=== PATIENT | female | born 1955 | race African-American/Black ===

== ENCOUNTER 2022-01-22 06:59 | Day surgery (SDC) | payer OTHER ==
[2022-01-20 16:22] LABS: Absolute Lymphocytes (CBC) 2.1 K/uL (0.7-4.9); Hematocrit 33.9 % (36.0-45.0); Lymphocytes % 31.8 % (15.3-44.8); MPV 6.8 fL (7.6-11.3); RBC Red Blood Cell Count 4.11 M/uL (3.86-4.86)
[2022-01-20 16:39] LABS: Potassium 3.3 mmol/L (3.5-5.1)
--- NOTE | 2022-01-20 16:52 | RAD REPORT ---
EXAM DESCRIPTION: RAD - Chest Pa And Lat (2 Views) - 01/20/2022 4:32 pm CLINICAL HISTORY: Pre op pending mass removalfrom the back COMPARISON: None available TECHNIQUE: Frontal and lateral views of the chest were obtained. FINDINGS: The lungs are clear. Heart size is normal and central vasculature is within normal limit s. No pleural effusion or pneumothorax seen. No acute bony finding noted. Thoracic endplate degener ative spurring changes are present. No aortic abnormality. IMPRESSION: No acute cardiopulmonary process.
--- NOTE | 2022-01-21 10:52 | EKG ---
Test Date: 2022-01-20 Test Time: 15:02:18 Salesforce Administrator: ELIU MEASUREMENT RESULTS: Intervals: Rate: 60 [place]: 166 QRSD: 86 QT: 404 QTc: 404 [place]: P: 44 [place]: 166 QRS: -4 T: 13 INTERPRETIVE STATEMENTS: Normal sinus rhythm Minimal voltage criteria for LVH, may be normal variant Possible Anterior infarct, age undetermined Abnormal ECG No previous ECG available for comparison Electronically Signed On 01-21-22 10:50:16 CDT by Candelario Dey
[2022-01-22] MEDS ORDERED: BUPIVACAINE 0.5% PF 10 ML VIAL ONE (07:18)
[2022-01-22] MEDS ORDERED: NA CHLORIDE 0.9% 1,000 ML ONE (07:24)
[2022-01-22] MEDS ORDERED: NA CHLORIDE 0.9% 50 ML ONE (07:41)
[2022-01-22] MEDS ORDERED: CEFAZOLIN SODIUM 1 GM/VIAL ONE (07:41)
[2022-01-22] MEDS ORDERED: propofoL 200 MG/20 ML VIAL IV ONE (07:42)
[2022-01-22] MEDS ORDERED: MIDAZOLAM HCL 2 MG/2 ML INJ ONE (07:42)
[2022-01-22] MEDS ORDERED: FENTANYL CITR 100 MCG/2 ML ONE (07:42)
[2022-01-22] MEDS ORDERED: ONDANSETRON 4 MG/2 ML VIAL ONE (07:43)
[2022-01-22] MEDS ORDERED: LIDOCAINE 2% MPF 5 ML VIAL ONE (07:43)
[2022-01-22] MEDS ORDERED: GLYCOPYRROLATE 0.2 MG/ML SYR ONE ×2 (08:26→08:29)
--- NOTE | 2022-01-22 08:27 | P.BOP ---
Preoperative diagnosis: quarter backer subQ mass 3.5 x 3 x 2 cm Postoperative diagnosis: same Primary procedure: Excisional biopsy quarter backer subQ mass 3.5 x 3 x 2 cm Vinyl Welder And Fabricator: MAHAMED QUINONES (VICE PRESIDENT OF ADVERTISING) Estimated blood loss: <10cc Specimen: back subQ mass 3.5 Findings: back subQ mass 3.5 Anesthesia: General Complications: None Fluids & blood products: no blood Transferred to: Recovery Room Condition: Good
[2022-01-22 09:12] VITALS: O2SAT 100
--- NOTE | 2022-01-22 09:31 | OP ---
Date of Procedure: 01/22/2022 Surgeon: Solomon Guillory MD Trim Installer: Sara Mchugh. Preoperative Diagnosis: Back, tender subcutaneous mass 3.5 x 3 x 2. Postoperative Diagnosis: Back, tender subcutaneous mass 3.5 x 3 x 2. Procedure: Excisional biopsy of tender back subcutaneous mass. Estimated Blood Loss: Less than 10 cc. Specimen: Subcutaneous back mass. Findings: Subcutaneous mass. Anesthesia: General plus local. Complications: None. Indication: This is the case of a 67-year-old patient, comes to us with a large tender mass in the b ack. Given pain and discomfort, she wants that excised. Benefits, alternatives, and risks of excisi on fully explained, which include, but not limited to infection, bleeding, damage to adjacent structu res, anesthesia complication, abscess, [place] and even . She also understands this may not relieve any symptoms. She might need more than one surgical intervention. She understood, signed a consent. The area of concern was marked by me and the patient in the holding room. Procedure In Detail: The patient was brought to the operating room, placed in supine position. Anes thesia was done without complication. The patient was placed in lateral decubitus position with prop er protection. The area was prepped and draped in the usual sterile fashion. Local anesthesia was a pplied followed by a wedge incision on the skin, gross negative margins and then we went about 2 cm t o be able to remove this mass. The area was irrigated. The mass was excised. Hemostasis was obtain ed. Then, we proceeded to close this in layers; deep layers 0 chromic, mid layers 0 chromic and 3-0 chromic, more superficial layers with 3-0 chromic and the skin with 3-0 nylon. The patient tolerated the procedure well. Sponge count and instrument counts correct. The patient was sent to recovery i n stable condition. HM/MODL Voice ID: [id number] Report ID: [id number]
--- NOTE | 2022-01-22 09:37 | DS ---
Diagnosis: stretch box tender subcutaneous mass. Procedure: Excisional biopsy of barback subcutaneous mass. Disposition: Home. Condition: Stable. Activity: As tolerated. No heavy lifting. Followup: Follow up in my office in 1 week. Call for appointment at [phone]. Keep area dry for 48 hours, then may shower. BRAULIO/JEREMIE Voice ID: [id number] Report ID: [id number]
[2022-01-22 09:39] VITALS: BP 159/97; TEMP 96.9
== END 2022-01-22 10:05 | disposition home or self-care (01) ==
LOC: OR 06:59
PROVIDERS: ATTEND Surgery
PROC: 0JB70ZZ Excision of Back Subcutaneous Tissue and Fascia, Open Approach (ICD-10-PCS; principal; 2022-01-22 08:00)
DX: L72.11 Pilar cyst (principal); Z20.822 Contact with and (suspected) exposure to COVID-19; E78.00 Pure hypercholesterolemia, unspecified; I10 Essential (primary) hypertension; E11.9 Type 2 diabetes mellitus without complications
CPT/HCPCS: 11404; 93005; 85025; 80048; 36415; 82947 ×2; 88304; 71046; U0003; J2704; J2250; J3010; J7030; J2405; J0690

== ENCOUNTER 2022-09-13 19:07 | Emergency (ER) | payer OTHER ==
--- OUTSIDE RECORDS SUMMARY | 2022-09-13 19:21 | XMS REPORT | Continuity of Care Document ---
:1955 Author Organization [facility] t Address [address] [place] [address] Care Team Providers Name Role Phone ELO WILEY Primary Care Physician Unavailable MONALISA BOUDREAUX Attending Clinician Unavailable Monalisa Boudreaux MD Attending Clinician Doctor Unassigned, [place] Attending Clinician Unavailable Radiology Attending Clinician Unavailable RADIOLOGY Attending Clinician Unavailable ILIANA CHAVEZ Attending Clinician Unavailable Iliana Chavez DO Attending Clinician UNKNOWN, ATTENDING Attending Clinician Unavailable Unknown, Attending Attending Clinician Unavailable Provider, [facility] Attending Clinician Unavailable Nj Phillips MD Attending Clinician [place] PHILLIPS Attending Clinician Unavailable MONALISA BOUDREAUX Admitting Clinician Unavailable Monalisa Boudreaux MD Admitting Clinician ELO WILEY Admitting Clinician Unavailable Payers Payer Name Policy Type Policy Number Effective Date Expiration Date Rafal ORELLANA/JOSE [id number] 2021 MEDICARE ADVANTAGE 00:00:00 Problems Condition Condition Condition Status Onset Resolution Last Treating Co mments Source Name Details Category Date Date Treatment Clinician Date Chest pain Chest pain Disease Active U nivers 5-05 ity of 00:00: [place] 00 [facility] Obesity Obesity Disease Active Univers (BMI (BMI 5-05 ity of 30-39.9) 30-39.9) 00:00: [place] [facility] Hypertensi Hypertensi Disease Active U nivers ve urgency ve urgency 5-05 it y of 00:00: [place] [facility] Morbidly Morbidly Disease Active Unive rs obese obese 6-17 ity of 00:00: [place] [facility] Essential Essential Disease Active Uni vers hypertensi hypertensi 6-17 it y of on, benign [place], benign [place] [facility] Type 2 Type 2 Disease Active Univers diabetes diabetes 6-17 ity of mellitus mellitus 00:00: [place] without without 00 Medical complicati complicati Br anch on on Hyperchole Hyperchole Disease Active U nivers steremia steremia 6-17 ity of 00:00: [place] 00 [facility] Allergies, Adverse Reactions, Alerts Allergy Allergy Status Severity Reaction(s) Onset Inactive Treating Comm ents Source Name Type Date Date Clinician POISON DRUG Active Hives Univers SADE INGREDI 8-15 ity of EXTRACT 00:00: [place] 00 [facility] Poison Propensi Active Hives Univers Sade ty to 8-15 ity of Extract adverse 00:00: [place] reaction 00 [facility] s Branch LACTOSE DRUG Active Diarrhea Univers INGREDI 5-05 ity of 00:00: [place] [facility] Lactose Propensi Active Diarrhea Lactose Univ ers ty to 5-05 intoleran ity of adverse 00:00: t [place] reaction Medical s [place] Social History Social Habit Start Date Stop Date Quantity Comments Source Alcohol intake 2022-05-14 2022-05-14 0 /d University of 00:00:00 00:00:00 [facility] Exposure to 2022-04-28 2022-05-08 Not sure [facility] SARS-CoV-2 00:00:00 13:10:00 [place] [facility] (event) Branch Tobacco use and 2016-03-07 2016-03-07 Smokeless tobacco Un iversity of exposure 00:00:00 00:00:00 non-user [facility] Sex Assigned At [address] [facility] y of 00:00:00 00:00:00 [facility] Smoking Status Start Date Stop Date Source Never smoked tobacco [facility] Medications Ordered Filled Start Stop Current Ordering Indication Dosage Frequency Signature Comments Components Source Medication Medication Date Date Medication? Clinician (SIG) Name Name TAKE 1 No TABLET BY 9-24 MOUTH ONCE 00:00: DAILY 00 TAKE 1 No TABLET BY 9-24 MOUTH ONCE 00:00: DAILY 00 water for 2021- No PRN, Univers irrigation 05-14 Starting ity of irrigation 15:33: 16:16 on Thu [place] solution 00 :28 05/14/22 at Medic al 1033, Branch Until Thu05/14/22 at 1116, Routine, Intra-op simethicone 2021- No PRN, Unive rs (GAS RELIEF 05-14 Starting ity of (SIMETHICON 15:33: 16:16 on Thu Jf as E)) 40 00 :28 05/14/22 at Medical mg/0.6 mL 1033, Branch drops Until Thu05/14/22 at 1116, Routine, Intra-op carvedilol Yes 25mg Take 25 mg U nivers (COREG) 25 8-24 by mouth 2 ity of mg tablet 14:23: (two) [place] 14 [place] [facility] daily with Branch meals. lovastatin Yes 20mg Take 20 mg U nivers (MEVACOR) 8-24 by mouth ity of 20 mg 14:23: at [place] tablet 14 bedtime. Medical Branch DINA Yes 81mg Take 81 mg Univer s ASPIRIN 8-24 by mouth ity of ORAL 14:23: daily. [place] 14 [facility] Branch cloniDINE Yes .2mg Take 0.2 Univ ers (CATAPRES) 8-24 mg by ity of 0.2 mg 14:23: mouth 3 [place] tablet 14 (three) Medical times [place] daily. diphenhydrA Yes 25mg Take 25 mg Univers MINE 8-24 by mouth ity of (BENADRYL) 14:23: as needed [place] 25 mg 14 for Medical capsule Allergies. Branch losartan-hy Yes 1{tbl} Take 1 Un óscar drochloroth 8-24 tablet by ity of iazide 14:23: mouth [place] 100-25 mg 14 daily. Medical per tablet Branch doxycycline Yes 100mg Take 100 U nivers 100 mg EC 8-24 mg by ity of tablet 14:23: mouth 2 [place] 14 (two) Medical times Branch daily. vitamin Yes 500ug Take 500 Unive rs B-12 500 8-24 mcg by ity of mcg tablet 14:23: mouth [place] 14 daily. Medical Branch glipiZIDE 5 Yes 5mg Take 5 mg U nivers mg tablet 8-24 by mouth ity of 14:23: daily. [place] [address] Medical Branch DULoxetine Yes 30mg Take 30 mg U nivers 30 mg 8-24 by mouth ity of capsule 14:23: daily. [place] [address] Medical Branch insulin Yes 50U inject 50 Unive rs glargine,hu 8-24 Units ity of m.rec.anlog 14:23: [place] 14 skin at Medic al bedtime. Branch semaglutide Yes inject Univ ers (OZEMPIC 8-24 under the ity of [place]) 14:23: skin [place] 14 weekly. Medical Branch carvedilol Yes 25mg Take 25 mg U nivers (COREG) 25 8-24 by mouth 2 ity of mg tablet 14:23: (two) [place] 14 times [facility] daily with Branch meals. lovastatin Yes 20mg Take 20 mg U nivers (MEVACOR) 8-24 by mouth ity of 20 mg 14:23: at [place] tablet 14 bedtime. Medical Branch DINA Yes 81mg Take 81 mg Univer s ASPIRIN 8-24 by mouth ity of ORAL 14:23: daily. [place] [address] Medical Branch cloniDINE Yes .2mg Take 0.2 Univ ers (CATAPRES) 8-24 mg by ity of 0.2 mg 14:23: mouth 3 [place] tablet 14 (three) Medical times Branch daily. diphenhydrA Yes 25mg Take 25 mg Univers MINE 8-24 by mouth ity of (BENADRYL) 14:23: as needed [place] 25 mg 14 for Medical capsule Allergies. Branch losartan-hy Yes 1{tbl} Take 1 Un óscar drochloroth 8-24 tablet by ity of iazide 14:23: mouth [place] 100-25 mg 14 daily. Medical per tablet Branch doxycycline Yes 100mg Take 100 U nivers 100 mg EC 8-24 mg by ity of tablet 14:23: mouth 2 [place] 14 (two) Medical times Branch daily. vitamin Yes 500ug Take 500 Unive rs B-12 500 8-24 mcg by ity of mcg tablet 14:23: mouth [place] 14 daily. Medical Branch glipiZIDE 5 Yes 5mg Take 5 mg U nivers mg tablet 8-24 by mouth ity of 14:23: daily. [place] [address] Medical Branch DULoxetine Yes 30mg Take 30 mg U nivers 30 mg 8-24 by mouth ity of capsule 14:23: daily. [place] [address] Medical Branch insulin Yes 50U inject 50 Unive rs glargine,hu 8-24 Units ity of m.rec.anlog 14:23: under the [place] 14 skin at Medic al bedtime. Branch semaglutide Yes inject Univ ers (OZEMPIC 8-24 under the ity of [place]) 14:23: skin [place] 14 weekly. Medical Branch carvedilol Yes 25mg Take 25 mg U nivers (COREG) 25 8-24 by mouth 2 ity of mg tablet 14:23: (two) [place] 14 times Medical daily with Branch meals. lovastatin Yes 20mg Take 20 mg U nivers (MEVACOR) 8-24 by mouth ity of 20 mg 14:23: at [place] tablet 14 bedtime. Medical Branch DINA Yes 81mg Take 81 mg Univer s ASPIRIN 8-24 by mouth ity of ORAL 14:23: daily. [place] [address] Medical Branch cloniDINE Yes .2mg Take 0.2 Univ ers (CATAPRES) 8-24 mg by ity of 0.2 mg 14:23: mouth 3 [place] tablet 14 (three) Medical times Branch daily. diphenhydrA Yes 25mg Take 25 mg Univers MINE 8-24 by mouth ity of (BENADRYL) 14:23: as needed [place] 25 mg 14 for Medical capsule Allergies. Branch losartan-hy Yes 1{tbl} Take 1 Un óscar drochloroth 8-24 tablet by ity of iazide 14:23: mouth [place] 100-25 mg 14 daily. Medical per tablet Branch doxycycline Yes 100mg Take 100 U nivers 100 mg EC 8-24 mg by ity of tablet 14:23: mouth 2 [place] 14 (two) Medical times Branch daily. vitamin Yes 500ug Take 500 Unive rs B-12 500 8-24 mcg by ity of mcg tablet 14:23: mouth [place] 14 daily. Medical Branch glipiZIDE 5 Yes 5mg Take 5 mg U nivers mg tablet 8-24 by mouth ity of 14:23: daily. [place] [address] Medical Branch DULoxetine Yes 30mg Take 30 mg U nivers 30 mg 8-24 by mouth ity of capsule 14:23: daily. [place] [address] Medical Branch insulin 0 Yes 50U inject 50 Unive rs glargine,hu 8-24 Units ity of m.rec.anlog 14:23: under the [place] 14 skin at Medic al bedtime. Branch semaglutide Yes inject Univ ers (OZEMPIC 8-24 under the ity of [place]) 14:23: skin [place] 14 weekly. Medical Branch TAKE 1 No 10 TABLET BY 8-12 MOUTH ONCE 00:00: DAILY 00 TAKE 1 2021-0 No 10 TABLET BY 8-12 MOUTH ONCE 00:00: DAILY 00 TAKE 1 2021-0 No 10 TABLET BY 8-12 MOUTH ONCE 00:00: DAILY 00 TAKE 1 2021-0 No TABLET BY 8-10 MOUTH ONCE 00:00: DAILY 00 TAKE 1 2021-0 No TABLET BY 8-10 MOUTH ONCE 00:00: DAILY 00 TAKE 1 2021-0 No TABLET BY 8-10 MOUTH ONCE 00:00: DAILY 00 TAKE 1 2021-0 No 15 TABLET BY 8-09 MOUTH ONCE 00:00: DAILY WITH 00 FOOD TAKE 1 2021-0 No 15 TABLET BY 8-09 MOUTH ONCE 00:00: DAILY WITH 00 FOOD TAKE 1 2021-0 No 15 TABLET BY 8-09 MOUTH ONCE 00:00: DAILY WITH 00 FOOD TAKE 1 2021-0 No 30 CAPSULE BY 8 MOUTH ONCE 00:00: DAILY 00 TAKE 1 2022-0 No 30 CAPSULE BY 8 MOUTH ONCE 00:00: DAILY 00 TAKE 1 2022-0 No 30 CAPSULE BY 04-23 MOUTH ONCE 00:00: DAILY 00 &lt 2022-0 No 15 8 00:00: 00 Dose 2022-0 No Unknown 8 00:00: 00 TAKE 1 2022-0 No 2 TABLET BY 04-22 MOUTH TWICE 00:00: DAILY 00 &lt 2022-0 No 20 8- 00:00: 00 &lt 2022-0 No 8- 00:00: 00 &lt 2022-0 No 8- 00:00: 00 &lt 2022-0 No 15 8 00:00: 00 &lt 2022-0 No 15 04-22 00:00: 00 Dose 2022-0 No Unknown 04-22 00:00: 00 TAKE 1 2022-0 No 2 TABLET BY 04-22 MOUTH TWICE 00:00: DAILY 00 &lt 2022-0 No 20 8- 00:00: 00 &lt 2022-0 No 8- 00:00: 00 &lt 2022-0 No 8- 00:00: 00 &lt 2022-0 No 15 04-22 00:00: 00 &lt 2022-0 No 15 04-22 00:00: 00 Dose 2022-0 No Unknown 04-22 00:00: 00 TAKE 1 2022-0 No 2 TABLET BY 04-22 MOUTH TWICE 00:00: DAILY 00 &lt 2022-0 No 20 8- 00:00: 00 &lt 2022-0 No 8- 00:00: 00 &lt 2022-0 No 8- 00:00: 00 &lt 2022-0 No 15 04-22 00:00: 00 &lt 2022-0 No 2 04-16 00:00: 00 TAKE 1 2022-0 No 5 TABLET BY 04-16 MOUTH ONCE 00:00: DAILY 00 &lt 2022-0 No 2 04-16 00:00: 00 TAKE 1 2022-0 No 5 TABLET BY 7 MOUTH ONCE 00:00: DAILY 00 &lt 2022-0 No 2 04-16 00:00: 00 TAKE 1 2022-0 No 5 TABLET BY 7-27 MOUTH ONCE 00:00: DAILY 00 &lt 2022-0 No 20 7-20 00:00: 00 TAKE 1 2022-0 No TABLET BY 7-20 MOUTH TWICE 00:00: DAILY 00 TAKE 1 2022-0 No 15 TABLET BY 7-20 MOUTH ONCE 00:00: DAILY WITH 00 FOOD &lt 2022-0 No 20 7-20 00:00: 00 TAKE 1 2022-0 No TABLET BY 7-20 MOUTH TWICE 00:00: DAILY 00 TAKE 1 2022-0 No 15 TABLET BY 7-20 MOUTH ONCE 00:00: DAILY WITH 00 FOOD &lt 2022-0 No 20 720 00:00: 00 TAKE 1 2-0 No TABLET BY 7-20 MOUTH TWICE 00:00: DAILY 00 TAKE 1 2022-0 No 15 TABLET BY 7-20 MOUTH ONCE 00:00: DAILY WITH 00 FOOD &lt 2022-0 No 6-27 00:00: 00 &lt 2022-0 No 6-27 00:00: 00 &lt 2022-0 No 6-27 00:00: 00 &lt 2022-0 No 6-27 00:00: 00 &lt 2022-0 No 6-27 00:00: 00 &lt 2022-0 No 6-27 00:00: 00 TAKE 1 2-0 No CAPSULE BY 6-24 MOUTH ONCE 00:00: DAILY 00 &lt 2022-0 No 6- 00:00: 00 Dose 2022-0 No Unknown 6 00:00: 00 &lt 2022-0 No 6-24 00:00: 00 TAKE 1 2-0 No CAPSULE BY 6-24 MOUTH ONCE 00:00: DAILY 00 &lt 2022-0 No 6-24 00:00: 00 Dose 2022-0 No Unknown 6 00:00: 00 &lt 2022-0 No 6-24 00:00: 00 TAKE 1 2-0 No CAPSULE BY 6-24 MOUTH ONCE 00:00: DAILY 00 &lt 2022-0 No 6-24 00:00: 00 Dose 2022-0 No Unknown 6 00:00: 00 &lt 2022-0 No 6-24 00:00: 00 doxycycline 2022-0 Yes 100mg Take 100 U nivers 100 mg EC 5-16 mg by ity of tablet 01:04: mouth 2 [place] 03 (two) Medical times Branch daily. vitamin 2021-0 Yes 500ug Take 500 Unive rs B-12 (B-12 5-16 mcg by ity of DOTS) 500 01:04: mouth [place] mcg tablet 03 daily. Medical Branch glipiZIDE 5 2021-0 Yes 5mg Take 5 mg U nivers mg tablet 5-16 by mouth ity of 01:04: daily. [place] [address] Medical Branch DULoxetine 2021-0 Yes 30mg Take 30 mg U nivers 30 mg 5-16 by mouth ity of capsule 01:04: daily. [place] [address] Medical Branch insulin 0 Yes 50U inject 50 Unive rs glargine,hu 5-16 Units ity of m.rec.anlog 01:04: under the [place] ([place] 03 skin at Medic al bedtime. Branch semaglutide 0 Yes inject Univ ers (OZEMPIC 5-16 under the ity of [place]) 01:04: skin [place] weekly. Medical Branch doxycycline 2021-0 Yes 100mg Take 100 U nivers 100 mg EC 5-16 mg by ity of tablet 01:04: mouth 2 [place] 03 (two) Medical times Branch daily. vitamin 2021-0 Yes 500ug Take 500 Unive rs B-12 (B-12 5-16 mcg by ity of DOTS) 500 01:04: mouth [place] mcg tablet 03 daily. Medical Branch glipiZIDE 5 2021-0 Yes 5mg Take 5 mg U nivers mg tablet 5-16 by mouth ity of 01:04: daily. [place] [address] Medical Branch DULoxetine 2021-0 Yes 30mg Take 30 mg U nivers 30 mg 5-16 by mouth ity of capsule 01:04: daily. [place] [address] Medical Branch insulin 0 Yes 50U inject 50 Unive rs glargine,hu 5-16 Units ity of m.rec.anlog 01:04: under the [place] ([place] 03 skin at Medic al bedtime. Branch semaglutide 0 Yes inject Univ ers (OZEMPIC 5-16 under the ity of [place]) 01:04: skin [place] 03 weekly. Medical Branch metoclopram 0 2021- No 10mg 10 mg, Uni vers mali HCl 5-14 05-14 Slow IV ity of (REGLAN) 17:45: 16:36 Push, [place] injection 00 :00 ONCE, 1 Medical 10 mg dose, On Branch 02/01/22 at 1245, BOBBY NaCl 0.9% 2021- No 1000mL at 999 Uni vers (NS) bolus 02-01 mL/hr, ity of infusion 17:00: 18:00 1,000 mL, Jf as 1,000 mL 00 :00 IV Medical Infusion, Branch ONCE, 1 dose, On 02/01/22 at 1200, BOBBY ondansetron 2021- No 4mg 4 mg, Slow Univers (ZOFRAN 02-01 IV Push, ity of (PF)) 17:00: 15:55 ONCE, 1 [place] injection 4 00 :00 dose, On Medi meghana mg Sat Branch 02/01/22 at 1200, BOBBY doxycycline 0 Yes 100mg Take 100 U nivers 100 mg EC 5-14 mg by ity of tablet 13:01: mouth 2 [place] 40 (two) Medical times Branch daily. vitamin 0 Yes 500ug Take 500 Unive rs B-12 (B-12 5-14 mcg by ity of DOTS) 500 13:01: mouth [place] mcg tablet 40 daily. Medical Branch glipiZIDE 5 0 Yes 5mg Take 5 mg U nivers mg tablet 5-14 by mouth ity of 13:01: daily. [address] Branch DULoxetine 0 Yes 30mg Take 30 mg U nivers 30 mg 5-14 by mouth ity of capsule 13:01: daily. [address] Branch insulin 0 Yes 50U inject 50 Unive rs glargine,hu 5-14 Units ity of m.rec.anlog 13:01: under the [place] ([place] 40 skin at Medic al bedtime. Branch semaglutide Yes inject Univ ers (OZEMPIC 5-14 under the ity of [place]) 13:01: skin [place] 40 weekly. Medical Branch loratadine 0 2021- No 10mg Take 10 mg Univers 10 mg 02-01-14 by mouth ity of tablet 10:57: 00:00 daily. [place] 42 :00 Medical Branch cloniDINE 2022-0 Yes .2mg Take 0.2 Univ ers (CATAPRES) 5-14 mg by ity of 0.2 mg 10:53: mouth 3 [place] tablet 30 (three) Medical times Branch daily. cloniDINE 2-0 Yes .2mg Take 0.2 Univ ers (CATAPRES) 5-14 mg by ity of 0.2 mg 10:53: mouth 3 [place] tablet 30 (three) Medical times Branch daily. cloniDINE 2-0 Yes .2mg Take 0.2 Univ ers (CATAPRES) 5-14 mg by ity of 0.2 mg 10:53: mouth 3 [place] tablet 30 (three) Medical times Branch daily. metFORMIN 2021-0 2021- No 1000mg Take 1,000 Univers (FORTAMET) 5-14 05-14 mg by ity of 1,000 mg 24 10:52: 00:00 mouth 2 [place] hr tablet 08 :00 (two) Medical times Branch daily with meals. meloxicam 2021-0 2021- No 15mg Take 15 mg U nivers 15 mg 5-14 05-14 by mouth ity of tablet 10:51: 00:00 daily. [place] 53 :00 Medical Branch lisinopril- 2021-0 2021- No 2{tbl} Take 2 U nivers hydrochloro 5-14 05-14 tablets by i ty of thiazide 10:51: 00:00 mouth [place] (PRINZIDE,Z 31 :00 daily. Medica l ESTORETIC) Branch 20-12.5 mg per tablet ondansetron 2021-0 Yes [id number] 4mg Take 1 Univers 4 mg 5-14 tablet by ity of disintegrat 00:00: mouth [place] ing tablet 00 every 8 Medica l (eight) Branch hours as needed for Nausea and Vomiting (N/V). ondansetron 2-0 Yes [id number] 4mg Take 1 Univers 4 mg 5-14 tablet by ity of disintegrat 00:00: mouth [place] ing tablet 00 every 8 Medica l (eight) Branch hours as needed for Nausea and Vomiting (N/V). ondansetron 2-0 Yes [id number] 4mg Take 1 Univers 4 mg 5-14 tablet by ity of disintegrat 00:00: mouth [place] ing tablet 00 every 8 Medica l (eight) Branch hours as needed for Nausea and Vomiting (N/V). ondansetron 2-0 Yes [id number] 4mg Take 1 Univers 4 mg 5-14 tablet by ity of disintegrat 00:00: mouth [place] ing tablet 00 every 8 Medica l (eight) Branch hours as needed for Nausea and Vomiting (N/V). ondansetron 2022-0 Yes [id number] 4mg Take 1 Univers 4 mg 5-14 tablet by ity of disintegrat 00:00: mouth [place] ing tablet 00 every 8 Medica l (eight) Branch hours as needed for Nausea and Vomiting (N/V). ondansetron 2-0 Yes [id number] 4mg Take 1 Univers 4 mg 5-14 tablet by ity of disintegrat 00:00: mouth [place] ing tablet 00 every 8 Medica l (eight) Branch hours as needed for Nausea and Vomiting (N/V). Dose 2022-0 No Unknown 3-24 00:00: 00 Dose 2022-0 No Unknown 3-24 00:00: 00 Dose 2022-0 No Unknown 3-24 00:00: 00 Dose 2022-0 No Unknown 3-24 00:00: 00 Dose 2022-0 No Unknown 3-24 00:00: 00 Dose 2022-0 No Unknown 3-24 00:00: 00 Dose 2022-0 No Unknown 3-24 00:00: 00 Dose 2022-0 No Unknown 3-24 00:00: 00 Dose 2022-0 No Unknown 3-24 00:00: 00 Dose 2022-0 No Unknown 3-24 00:00: 00 Dose 2022-0 No Unknown 3-24 00:00: 00 Dose 2022-0 No Unknown 3-24 00:00: 00 Dose 2022-0 No Unknown 3-24 00:00: 00 Dose 2022-0 No Unknown 3-24 00:00: 00 Dose 2022-0 No Unknown 3-24 00:00: 00 Dose 2022-0 No Unknown 3-24 00:00: 00 Dose 2022-0 No Unknown 3-24 00:00: 00 Dose 2022-0 No Unknown 3-24 00:00: 00 Dose 2022-0 No Unknown 3-24 00:00: 00 Dose 2022-0 No Unknown 3-24 00:00: 00 Dose 2022-0 No Unknown 3-24 00:00: 00 Dose 2022-0 No Unknown 3-24 00:00: 00 Dose 2022-0 No Unknown 3-24 00:00: 00 Dose 2022-0 No Unknown 3-24 00:00: 00 Dose 2022-0 No Unknown 3-24 00:00: 00 Dose 2022-0 No Unknown 3-24 00:00: 00 Dose 2022-0 No Unknown 3-24 00:00: 00 Dose 2022-0 No Unknown 3-24 00:00: 00 Dose 2022-0 No Unknown 3-24 00:00: 00 Dose 2022-0 No Unknown 3-24 00:00: 00 Dose 2022-0 No Unknown 3-24 00:00: 00 Dose 2022-0 No Unknown 3-24 00:00: 00 Dose 2022-0 No Unknown 3-24 00:00: 00 Dose 2022-0 No Unknown 3-24 00:00: 00 Dose 2022-0 No Unknown 3-24 00:00: 00 Dose 2022-0 No Unknown 3-24 00:00: 00 Dose 2022-0 No Unknown 3-24 00:00: 00 Dose 2022-0 No Unknown 3-24 00:00: 00 Dose 2022-0 No Unknown 3-24 00:00: 00 Dose 2022-0 No Unknown 3-24 00:00: 00 Dose 2022-0 No Unknown 3-24 00:00: 00 Dose 2022-0 No Unknown 3-24 00:00: 00 Dose 2022-0 No Unknown 3-24 00:00: 00 Dose 2022-0 No Unknown 3-24 00:00: 00 Dose 2022-0 No Unknown 3-24 00:00: 00 Dose 2022-0 No Unknown 3-24 00:00: 00 Dose 2022-0 No Unknown 3-24 00:00: 00 Dose 2022-0 No Unknown 3-24 00:00: 00 Dose 2022-0 No Unknown 3-24 00:00: 00 Dose 2022-0 No Unknown 3-24 00:00: 00 Dose 2022-0 No Unknown 3-24 00:00: 00 Dose 2022-0 No Unknown 3-24 00:00: 00 Dose 2022-0 No Unknown 3-24 00:00: 00 Dose 2022-0 No Unknown 3-24 00:00: 00 Dose 2022-0 No Unknown 3-24 00:00: 00 Dose 2022-0 No Unknown 3-24 00:00: 00 Dose 2022-0 No Unknown 3-24 00:00: 00 Dose 2022-0 No Unknown 3-24 00:00: 00 Dose 2022-0 No Unknown 3-24 00:00: 00 Dose 2022-0 No Unknown 3-24 00:00: 00 Dose 2022-0 No Unknown 3-24 00:00: 00 Dose 2022-0 No Unknown 3-24 00:00: 00 Dose 2022-0 No Unknown 3-24 00:00: 00 Dose 2022-0 No Unknown 3-24 00:00: 00 Dose 2022-0 No Unknown 3-24 00:00: 00 Dose 2022-0 No Unknown 3-24 00:00: 00 Dose 2022-0 No Unknown 3-24 00:00: 00 Dose 2022-0 No Unknown 3-24 00:00: 00 Dose 2022-0 No Unknown 3-24 00:00: 00 Dose 2022-0 No Unknown 3-24 00:00: 00 Dose 2022-0 No Unknown 3-24 00:00: 00 Dose 2022-0 No Unknown 3-24 00:00: 00 Dose 2022-0 No Unknown 3-24 00:00: 00 Dose 2022-0 No Unknown 3-24 00:00: 00 Dose 2022-0 No Unknown 3-24 00:00: 00 Dose 2022-0 No Unknown 3-24 00:00: 00 Dose 2022-0 No Unknown 3-24 00:00: 00 Dose 2022-0 No Unknown 3-24 00:00: 00 Dose 2022-0 No Unknown 3-24 00:00: 00 Dose 2022-0 No Unknown 3-24 00:00: 00 Dose 2022-0 No Unknown 3-24 00:00: 00 Dose 2022-0 No Unknown 3-24 00:00: 00 Dose 2022-0 No Unknown 3-24 00:00: 00 Dose 2022-0 No Unknown 3-24 00:00: 00 Dose 2022-0 No Unknown 3-24 00:00: 00 Dose 2022-0 No Unknown 3-24 00:00: 00 Dose 2022-0 No Unknown 3-24 00:00: 00 Dose 2022-0 No Unknown 3-24 00:00: 00 Dose 2022-0 No Unknown 3-24 00:00: 00 Dose 2022-0 No Unknown 3-24 00:00: 00 Dose 2022-0 No Unknown 3-24 00:00: 00 Dose 2022-0 No Unknown 3-24 00:00: 00 Dose 2022-0 No Unknown 3-24 00:00: 00 Dose 2022-0 No Unknown 3-24 00:00: 00 Dose 2022-0 No Unknown 3-24 00:00: 00 Dose 2022-0 No Unknown 3-24 00:00: 00 Dose 2022-0 No Unknown 3-24 00:00: 00 Dose 2022-0 No Unknown 3-24 00:00: 00 Dose 2022-0 No Unknown 3-24 00:00: 00 Dose 2022-0 No Unknown 3-24 00:00: 00 Dose 2022-0 No Unknown 3-24 00:00: 00 Dose 2022-0 No Unknown 3-24 00:00: 00 Dose 2022-0 No Unknown 3-24 00:00: 00 Dose 2022-0 No Unknown 3-24 00:00: 00 Dose 2022-0 No Unknown 3-24 00:00: 00 Dose 2022-0 No Unknown 3-24 00:00: 00 Dose 2022-0 No Unknown 3-24 00:00: 00 Dose 2022-0 No Unknown 3-24 00:00: 00 Dose 2022-0 No Unknown 3-23 00:00: 00 Dose 2022-0 No Unknown 3-23 00:00: 00 Dose 2022-0 No Unknown 3-23 00:00: 00 Dose 2022-0 No Unknown 3-23 00:00: 00 Dose 2022-0 No Unknown 3-23 00:00: 00 Dose 2022-0 No Unknown 3-23 00:00: 00 Dose 2022-0 No Unknown 3-23 00:00: 00 Dose 2022-0 No Unknown 3-23 00:00: 00 Dose 2022-0 No Unknown 3-23 00:00: 00 Dose 2022-0 No Unknown 3-23 00:00: 00 Dose 2022-0 No Unknown 3-23 00:00: 00 Dose 2022-0 No Unknown 3-23 00:00: 00 Dose 2022-0 No Unknown 3-23 00:00: 00 Dose 2022-0 No Unknown 3-23 00:00: 00 Dose 2022-0 No Unknown 3-23 00:00: 00 Dose 2022-0 No Unknown 3-23 00:00: 00 Dose 2022-0 No Unknown 3-23 00:00: 00 Dose 2022-0 No Unknown 3-23 00:00: 00 Dose 2022-0 No Unknown 3-23 00:00: 00 Dose 2022-0 No Unknown 3-23 00:00: 00 Dose 2022-0 No Unknown 3-23 00:00: 00 Dose 2022-0 No Unknown 3-23 00:00: 00 Dose 2022-0 No Unknown 3-23 00:00: 00 Dose 2022-0 No Unknown 3-23 00:00: 00 Dose 2022-0 No Unknown 3-23 00:00: 00 Dose 2022-0 No Unknown 3-23 00:00: 00 Dose 2022-0 No Unknown 3-23 00:00: 00 Dose 2022-0 No Unknown 3-23 00:00: 00 Dose 2022-0 No Unknown 3-23 00:00: 00 Dose 2022-0 No Unknown 3-23 00:00: 00 Dose 2022-0 No Unknown 3-23 00:00: 00 Dose 2022-0 No Unknown 3-23 00:00: 00 Dose 2022-0 No Unknown 3-23 00:00: 00 Dose 2022-0 No Unknown 3-23 00:00: 00 Dose 2022-0 No Unknown 3-23 00:00: 00 Dose 2022-0 No Unknown 3-23 00:00: 00 Dose 2022-0 No Unknown 3-23 00:00: 00 Dose 2022-0 No Unknown 3-23 00:00: 00 Dose 2022-0 No Unknown 3-23 00:00: 00 Dose 2022-0 No Unknown 3-23 00:00: 00 Dose 2022-0 No Unknown 3-23 00:00: 00 Dose 2022-0 No Unknown 3-23 00:00: 00 Dose 2022-0 No Unknown 3-23 00:00: 00 Dose 2022-0 No Unknown 3-23 00:00: 00 Dose 2022-0 No Unknown 3-23 00:00: 00 Dose 2022-0 No Unknown 3-23 00:00: 00 Dose 2022-0 No Unknown 3-23 00:00: 00 Dose 2022-0 No Unknown 3-23 00:00: 00 Dose 2022-0 No Unknown 3-23 00:00: 00 Dose 2022-0 No Unknown 3-23 00:00: 00 Dose 2022-0 No Unknown 3-23 00:00: 00 Dose 2022-0 No Unknown 3-23 00:00: 00 Dose 2022-0 No Unknown 3-23 00:00: 00 Dose 2022-0 No Unknown 3-23 00:00: 00 Dose 2022-0 No Unknown 3-23 00:00: 00 Dose 2022-0 No Unknown 3-23 00:00: 00 Dose 2022-0 No Unknown 3-23 00:00: 00 Dose 2022-0 No Unknown 3-23 00:00: 00 Dose 2022-0 No Unknown 3-23 00:00: 00 Dose 2022-0 No Unknown 3-23 00:00: 00 Dose 2022-0 No Unknown 3-23 00:00: 00 Dose 2022-0 No Unknown 3-23 00:00: 00 Dose 2022-0 No Unknown 3-23 00:00: 00 Dose 2022-0 No Unknown 3-23 00:00: 00 Dose 2022-0 No Unknown 3-23 00:00: 00 Dose 2022-0 No Unknown 3-23 00:00: 00 Dose 2022-0 No Unknown 3-23 00:00: 00 Dose 2022-0 No Unknown 3-23 00:00: 00 Dose 2022-0 No Unknown 3-23 00:00: 00 Dose 2022-0 No Unknown 3-23 00:00: 00 Dose 2022-0 No Unknown 3-23 00:00: 00 Dose 2022-0 No Unknown 3-23 00:00: 00 Dose 2022-0 No Unknown 3-23 00:00: 00 Dose 2022-0 No Unknown 3-23 00:00: 00 Dose 2022-0 No Unknown 3-23 00:00: 00 Dose 2022-0 No Unknown 3-23 00:00: 00 Dose 2022-0 No Unknown 3-23 00:00: 00 Dose 2022-0 No Unknown 3-23 00:00: 00 Dose 2022-0 No Unknown 3-23 00:00: 00 Dose 2022-0 No Unknown 3-23 00:00: 00 Dose 2022-0 No Unknown 3-23 00:00: 00 Dose 2022-0 No Unknown 3-23 00:00: 00 Dose 2022-0 No Unknown 3-23 00:00: 00 Dose 2022-0 No Unknown 3-23 00:00: 00 Dose 2022-0 No Unknown 3-23 00:00: 00 Dose 2022-0 No Unknown 3-23 00:00: 00 Dose 2022-0 No Unknown 3-23 00:00: 00 Dose 2022-0 No Unknown 3-23 00:00: 00 Dose 2022-0 No Unknown 3-23 00:00: 00 Dose 2022-0 No Unknown 3-23 00:00: 00 Dose 2022-0 No Unknown 3-23 00:00: 00 Dose 2022-0 No Unknown 3-23 00:00: 00 Dose 2022-0 No Unknown 3-23 00:00: 00 Dose 2022-0 No Unknown 3-23 00:00: 00 Dose 2022-0 No Unknown 3-23 00:00: 00 Dose 2022-0 No Unknown 3-23 00:00: 00 Dose 2022-0 No Unknown 3-23 00:00: 00 Dose 2022-0 No Unknown 3-23 00:00: 00 Dose 2022-0 No Unknown 3-23 00:00: 00 Dose 2022-0 No Unknown 3-23 00:00: 00 Dose 2022-0 No Unknown 3-23 00:00: 00 Dose 2022-0 No Unknown 3-23 00:00: 00 Dose 2022-0 No Unknown 3-23 00:00: 00 Dose 2022-0 No Unknown 3-23 00:00: 00 Dose 2022-0 No Unknown 3-23 00:00: 00 Dose 2022-0 No Unknown 3-23 00:00: 00 Dose 2022-0 No Unknown 3-23 00:00: 00 Dose 2022-0 No Unknown 3-23 00:00: 00 Dose 2022-0 No Unknown 3-23 00:00: 00 Dose 2022-0 No Unknown 3-23 00:00: 00 Dose 2022-0 No Unknown 3-23 00:00: 00 Dose 2022-0 No Unknown 3-23 00:00: 00 Dose 2022-0 No Unknown 3-23 00:00: 00 Dose 2022-0 No Unknown 3-23 00:00: 00 Dose 2022-0 No Unknown 3-23 00:00: 00 Dose 2022-0 No Unknown 3-23 00:00: 00 Dose 2022-0 No Unknown 3-23 00:00: 00 Dose 2022-0 No Unknown 3-23 00:00: 00 Dose 2022-0 No Unknown 3-23 00:00: 00 Dose 2022-0 No Unknown 3-23 00:00: 00 Dose 2022-0 No Unknown 3-23 00:00: 00 Dose 2022-0 No Unknown 3-23 00:00: 00 Dose 2022-0 No Unknown 3-23 00:00: 00 Dose 2022-0 No Unknown 3-23 00:00: 00 Dose 2022-0 No Unknown 3-23 00:00: 00 Dose 2022-0 No Unknown 3-23 00:00: 00 Dose 2022-0 No Unknown 3-23 00:00: 00 Dose 2022-0 No Unknown 3-23 00:00: 00 Dose 2022-0 No Unknown 3-23 00:00: 00 Dose 2022-0 No Unknown 3-23 00:00: 00 Dose 2022-0 No Unknown 3-23 00:00: 00 Dose 2022-0 No Unknown 3-23 00:00: 00 Dose 2022-0 No Unknown 3-23 00:00: 00 Dose 2022-0 No Unknown 3-23 00:00: 00 Dose 2022-0 No Unknown 3-23 00:00: 00 Dose 2022-0 No Unknown 3-23 00:00: 00 Dose 2022-0 No Unknown 3-23 00:00: 00 Dose 2022-0 No Unknown 3-23 00:00: 00 Dose 2022-0 No Unknown 3-23 00:00: 00 Dose 2022-0 No Unknown 3-23 00:00: 00 Dose 2022-0 No Unknown 3-23 00:00: 00 Dose 2022-0 No Unknown 3-23 00:00: 00 Dose 2022-0 No Unknown 3-23 00:00: 00 Dose 2022-0 No Unknown 3-23 00:00: 00 Dose 2022-0 No Unknown 3-23 00:00: 00 Dose 2022-0 No Unknown 3-23 00:00: 00 Dose 2022-0 No Unknown 3-23 00:00: 00 Dose 2022-0 No Unknown 3-23 00:00: 00 Dose 2022-0 No Unknown 3-23 00:00: 00 Dose 2022-0 No Unknown 3-23 00:00: 00 Dose 2022-0 No Unknown 3-23 00:00: 00 Dose 2022-0 No Unknown 3-23 00:00: 00 Dose 2022-0 No Unknown 3-23 00:00: 00 Dose 2022-0 No Unknown 3-23 00:00: 00 Dose 2022-0 No Unknown 3-23 00:00: 00 Dose 2022-0 No Unknown 3-23 00:00: 00 Dose 2022-0 No Unknown 3-23 00:00: 00 Dose 2022-0 No Unknown 3-23 00:00: 00 Dose 2022-0 No Unknown 3-23 00:00: 00 Dose 2022-0 No Unknown 3-23 00:00: 00 Dose 2022-0 No Unknown 3-23 00:00: 00 Dose 2022-0 No Unknown 3-23 00:00: 00 Dose 2022-0 No Unknown 3-23 00:00: 00 Dose 2022-0 No Unknown 3-23 00:00: 00 Dose 2022-0 No Unknown 3-23 00:00: 00 Dose 2022-0 No Unknown 3-23 00:00: 00 Dose 2022-0 No Unknown 3-23 00:00: 00 Dose 2022-0 No Unknown 3-23 00:00: 00 Dose 2022-0 No Unknown 3-23 00:00: 00 Dose 2022-0 No Unknown 3-23 00:00: 00 Dose 2022-0 No Unknown 3-23 00:00: 00 Dose 2022-0 No Unknown 3-23 00:00: 00 Dose 2022-0 No Unknown 3-23 00:00: 00 Dose 2022-0 No Unknown 3-23 00:00: 00 Dose 2022-0 No Unknown 3-23 00:00: 00 Dose 2022-0 No Unknown 3-23 00:00: 00 Dose 2022-0 No Unknown 3-23 00:00: 00 Dose 2022-0 No Unknown 3-23 00:00: 00 Dose 2022-0 No Unknown 3-23 00:00: 00 Dose 2022-0 No Unknown 3-23 00:00: 00 Dose 2022-0 No Unknown 3-23 00:00: 00 Dose 2022-0 No Unknown 3-23 00:00: 00 Dose 2022-0 No Unknown 3-23 00:00: 00 Dose 2022-0 No Unknown 3-23 00:00: 00 Dose 2022-0 No Unknown 3-23 00:00: 00 Dose 2022-0 No Unknown 3-23 00:00: 00 Dose 2022-0 No Unknown 3-23 00:00: 00 Dose 2022-0 No Unknown 3-23 00:00: 00 Dose 2022-0 No Unknown 3-23 00:00: 00 Dose 2022-0 No Unknown 3-23 00:00: 00 Dose 2022-0 No Unknown 3-23 00:00: 00 Dose 2022-0 No Unknown 3-23 00:00: 00 Dose 2022-0 No Unknown 3-23 00:00: 00 Dose 2022-0 No Unknown 3-23 00:00: 00 Dose 2022-0 No Unknown 3-23 00:00: 00 Dose 2022-0 No Unknown 3-23 00:00: 00 Dose 2022-0 No Unknown 3-23 00:00: 00 Dose 2022-0 No Unknown 3-23 00:00: 00 Dose 2022-0 No Unknown 3-23 00:00: 00 Dose 2022-0 No Unknown 3-23 00:00: 00 Dose 2022-0 No Unknown 3-23 00:00: 00 Dose 2022-0 No Unknown 3-23 00:00: 00 Dose 2022-0 No Unknown 3-23 00:00: 00 Dose 2022-0 No Unknown 3-23 00:00: 00 Dose 2022-0 No Unknown 3-23 00:00: 00 Dose 2022-0 No Unknown 3-23 00:00: 00 Dose 2022-0 No Unknown 3-23 00:00: 00 Dose 2022-0 No Unknown 3-23 00:00: 00 Dose 2022-0 No Unknown 3-23 00:00: 00 Dose 2022-0 No Unknown 3-23 00:00: 00 Dose 2022-0 No Unknown 3-23 00:00: 00 Dose 2022-0 No Unknown 3-23 00:00: 00 Dose 2022-0 No Unknown 3-23 00:00: 00 Dose 2022-0 No Unknown 3-23 00:00: 00 Dose 2022-0 No Unknown 3-23 00:00: 00 Dose 2022-0 No Unknown 3-23 00:00: 00 Dose 2022-0 No Unknown 3-23 00:00: 00 Dose 2022-0 No Unknown 3-23 00:00: 00 Dose 2022-0 No Unknown 3-23 00:00: 00 Dose 2022-0 No Unknown 3-23 00:00: 00 Dose 2022-0 No Unknown 3-23 00:00: 00 Dose 2022-0 No Unknown 3-23 00:00: 00 Dose 2022-0 No Unknown 3-23 00:00: 00 Dose 2022-0 No Unknown 3-23 00:00: 00 Dose 2022-0 No Unknown 3-23 00:00: 00 Dose 2022-0 No Unknown 3-23 00:00: 00 Dose 2022-0 No Unknown 3-23 00:00: 00 Dose 2022-0 No Unknown 3-23 00:00: 00 Dose 2022-0 No Unknown 3-23 00:00: 00 Dose 2022-0 No Unknown 3-23 00:00: 00 Dose 2022-0 No Unknown 3-23 00:00: 00 Dose 2022-0 No Unknown 3-23 00:00: 00 Dose 2022-0 No Unknown 3-23 00:00: 00 Dose 2022-0 No Unknown 3-23 00:00: 00 Dose 2022-0 No Unknown 3-23 00:00: 00 Dose 2022-0 No Unknown 3-23 00:00: 00 Dose 2022-0 No Unknown 3-23 00:00: 00 Dose 2022-0 No Unknown 3-23 00:00: 00 Dose 2022-0 No Unknown 3-23 00:00: 00 Dose 2022-0 No Unknown 3-23 00:00: 00 Dose 2022-0 No Unknown 3-23 00:00: 00 Dose 2022-0 No Unknown 3-23 00:00: 00 Dose 2022-0 No Unknown 3-23 00:00: 00 Dose 2022-0 No Unknown 3-23 00:00: 00 Dose 2022-0 No Unknown 3-23 00:00: 00 Dose 2022-0 No Unknown 3-23 00:00: 00 Dose 2022-0 No Unknown 3-23 00:00: 00 Dose 2022-0 No Unknown 3-23 00:00: 00 Dose 2022-0 No Unknown 3-23 00:00: 00 Dose 2022-0 No Unknown 3-23 00:00: 00 Dose 2022-0 No Unknown 3-23 00:00: 00 Dose 2022-0 No Unknown 3-23 00:00: 00 Dose 2022-0 No Unknown 3-23 00:00: 00 Dose 2022-0 No Unknown 3-23 00:00: 00 Dose 2022-0 No Unknown 3-23 00:00: 00 Dose 2022-0 No Unknown 3-23 00:00: 00 Dose 2022-0 No Unknown 3-23 00:00: 00 Dose 2022-0 No Unknown 3-23 00:00: 00 Dose 2022-0 No Unknown 3-23 00:00: 00 Dose 2022-0 No Unknown 3-23 00:00: 00 Dose 2022-0 No Unknown 3-23 00:00: 00 Dose 2022-0 No Unknown 3-23 00:00: 00 Dose 2022-0 No Unknown 3-23 00:00: 00 Dose 2022-0 No Unknown 3-23 00:00: 00 Dose 2022-0 No Unknown 3-23 00:00: 00 Dose 2022-0 No Unknown 3-23 00:00: 00 Dose 2022-0 No Unknown 3-23 00:00: 00 Dose 2022-0 No Unknown 3-23 00:00: 00 Dose 2022-0 No Unknown 3-23 00:00: 00 Dose 2022-0 No Unknown 3-23 00:00: 00 Dose 2022-0 No Unknown 3-23 00:00: 00 Dose 2022-0 No Unknown 3-23 00:00: 00 Dose 2022-0 No Unknown 3-23 00:00: 00 Dose 2022-0 No Unknown 3-23 00:00: 00 Dose 2022-0 No Unknown 3-23 00:00: 00 Dose 2022-0 No Unknown 3-23 00:00: 00 Dose 2022-0 No Unknown 3-23 00:00: 00 Dose 2022-0 No Unknown 3-23 00:00: 00 Dose 2022-0 No Unknown 3-23 00:00: 00 Dose 2022-0 No Unknown 3-23 00:00: 00 Dose 2022-0 No Unknown 3-23 00:00: 00 Dose 2022-0 No Unknown 3-23 00:00: 00 Dose 2022-0 No Unknown 3-23 00:00: 00 Dose 2022-0 No Unknown 3-23 00:00: 00 Dose 2022-0 No Unknown 3-23 00:00: 00 Dose 2022-0 No Unknown 3-23 00:00: 00 Dose 2022-0 No Unknown 3-23 00:00: 00 Dose 2022-0 No Unknown 3-23 00:00: 00 Dose 2022-0 No Unknown 3-23 00:00: 00 Dose 2022-0 No Unknown 3-23 00:00: 00 Dose 2022-0 No Unknown 3-23 00:00: 00 Dose 2022-0 No Unknown 3-23 00:00: 00 Dose 2022-0 No Unknown 3-23 00:00: 00 Dose 2022-0 No Unknown 3-23 00:00: 00 Dose 2022-0 No Unknown 3-23 00:00: 00 Dose 2022-0 No Unknown 3-23 00:00: 00 Dose 2022-0 No Unknown 3-23 00:00: 00 Dose 2022-0 No Unknown 3-23 00:00: 00 Dose 2022-0 No Unknown 3-23 00:00: 00 Dose 2022-0 No Unknown 3-23 00:00: 00 Dose 2022-0 No Unknown 3-23 00:00: 00 Dose 2022-0 No Unknown 3-23 00:00: 00 Dose 2022-0 No Unknown 3-23 00:00: 00 Dose 2022-0 No Unknown 3-23 00:00: 00 Dose 2022-0 No Unknown 3-23 00:00: 00 Dose 2022-0 No Unknown 3-23 00:00: 00 Dose 2022-0 No Unknown 3-23 00:00: 00 Dose 2022-0 No Unknown 3-23 00:00: 00 Dose 2022-0 No Unknown 3-23 00:00: 00 Dose 2022-0 No Unknown 3-23 00:00: 00 Dose 2022-0 No Unknown 3-23 00:00: 00 Dose 2022-0 No Unknown 3-23 00:00: 00 Dose 2022-0 No Unknown 3-23 00:00: 00 Dose 2022-0 No Unknown 3-23 00:00: 00 Dose 2022-0 No Unknown 3-23 00:00: 00 Dose 2022-0 No Unknown 3-23 00:00: 00 Dose 2022-0 No Unknown 3-23 00:00: 00 Dose 2022-0 No Unknown 3-23 00:00: 00 Dose 2022-0 No Unknown 3-23 00:00: 00 Dose 2022-0 No Unknown 3-23 00:00: 00 Dose 2022-0 No Unknown 3-23 00:00: 00 Dose 2022-0 No Unknown 3-23 00:00: 00 Dose 2022-0 No Unknown 3-23 00:00: 00 Dose 2022-0 No Unknown 3-23 00:00: 00 Dose 2022-0 No Unknown 3-23 00:00: 00 Dose 2022-0 No Unknown 3-23 00:00: 00 Dose 2022-0 No Unknown 3-23 00:00: 00 Dose 2022-0 No Unknown 3-23 00:00: 00 Dose 2022-0 No Unknown 3-23 00:00: 00 Dose 2022-0 No Unknown 3-23 00:00: 00 Dose 2022-0 No Unknown 3-23 00:00: 00 Dose 2022-0 No Unknown 3-23 00:00: 00 Dose 2022-0 No Unknown 3-23 00:00: 00 Dose 2022-0 No Unknown 3-23 00:00: 00 Dose 2022-0 No Unknown 3-23 00:00: 00 Dose 2022-0 No Unknown 3-23 00:00: 00 Dose 2022-0 No Unknown 3-23 00:00: 00 Dose 2022-0 No Unknown 3-23 00:00: 00 Dose 2022-0 No Unknown 3-23 00:00: 00 Dose 2022-0 No Unknown 3-23 00:00: 00 Dose 2022-0 No Unknown 3-23 00:00: 00 Dose 2022-0 No Unknown 3-23 00:00: 00 Dose 2022-0 No Unknown 3-23 00:00: 00 Dose 2022-0 No Unknown 3-23 00:00: 00 Dose 2022-0 No Unknown 3-23 00:00: 00 Dose 2022-0 No Unknown 3-23 00:00: 00 Dose 2022-0 No Unknown 3-23 00:00: 00 Dose 2022-0 No Unknown 3-23 00:00: 00 Dose 2022-0 No Unknown 3-23 00:00: 00 Dose 2022-0 No Unknown 3-23 00:00: 00 Dose 2022-0 No Unknown 3-23 00:00: 00 Dose 2022-0 No Unknown 3-23 00:00: 00 Dose 2022-0 No Unknown 3-23 00:00: 00 Dose 2022-0 No Unknown 3-23 00:00: 00 Dose 2022-0 No Unknown 3-23 00:00: 00 Dose 2022-0 No Unknown 3-23 00:00: 00 Dose 2022-0 No Unknown 3-23 00:00: 00 Dose 2022-0 No Unknown 3-23 00:00: 00 Dose 2022-0 No Unknown 3-23 00:00: 00 Dose 2022-0 No Unknown 3-23 00:00: 00 Dose 2022-0 No Unknown 3-23 00:00: 00 Dose 2022-0 No Unknown 3-23 00:00: 00 Dose 2022-0 No Unknown 3-23 00:00: 00 Dose 2022-0 No Unknown 3-23 00:00: 00 Dose 2022-0 No Unknown 3-23 00:00: 00 Dose 2022-0 No Unknown 3-23 00:00: 00 Dose 2022-0 No Unknown 3-23 00:00: 00 Dose 2022-0 No Unknown 3-23 00:00: 00 Dose 2022-0 No Unknown 3-23 00:00: 00 Dose 2022-0 No Unknown 3-23 00:00: 00 Dose 2022-0 No Unknown 3-23 00:00: 00 Dose 2022-0 No Unknown 3-23 00:00: 00 Dose 2022-0 No Unknown 3-23 00:00: 00 Dose 2022-0 No Unknown 3-23 00:00: 00 Dose 2022-0 No Unknown 3-23 00:00: 00 Dose 2022-0 No Unknown 3-23 00:00: 00 Dose 2022-0 No Unknown 3-23 00:00: 00 Dose 2022-0 No Unknown 3-23 00:00: 00 Dose 2022-0 No Unknown 3-23 00:00: 00 Dose 2022-0 No Unknown 3-23 00:00: 00 Dose 2022-0 No Unknown 3-23 00:00: 00 Dose 2022-0 No Unknown 3-23 00:00: 00 Dose 2022-0 No Unknown 3-23 00:00: 00 Dose 2022-0 No Unknown 3-23 00:00: 00 Dose 2022-0 No Unknown 3-23 00:00: 00 Dose 2022-0 No Unknown 3-23 00:00: 00 Dose 2022-0 No Unknown 3-23 00:00: 00 Dose 2022-0 No Unknown 3-23 00:00: 00 Dose 2022-0 No Unknown 3-23 00:00: 00 Dose 2022-0 No Unknown 3-23 00:00: 00 Dose 2022-0 No Unknown 3-23 00:00: 00 Dose 2022-0 No Unknown 3-23 00:00: 00 Dose 2022-0 No Unknown 3-23 00:00: 00 Dose 2022-0 No Unknown 3-23 00:00: 00 Dose 2022-0 No Unknown 3-23 00:00: 00 Dose 2022-0 No Unknown 3-23 00:00: 00 Dose 2022-0 No Unknown 3-23 00:00: 00 Dose 2022-0 No Unknown 3-23 00:00: 00 Dose 2022-0 No Unknown 3-23 00:00: 00 Dose 2022-0 No Unknown 3-23 00:00: 00 Dose 2022-0 No Unknown 3-23 00:00: 00 Dose 2022-0 No Unknown 3-23 00:00: 00 Dose 2022-0 No Unknown 3-23 00:00: 00 Dose 2022-0 No Unknown 3-23 00:00: 00 Dose 2022-0 No Unknown 3-23 00:00: 00 Dose 2022-0 No Unknown 3-23 00:00: 00 Dose 2022-0 No Unknown 3-23 00:00: 00 Dose 2022-0 No Unknown 3-23 00:00: 00 Dose 2022-0 No Unknown 3-23 00:00: 00 Dose 2022-0 No Unknown 3-23 00:00: 00 Dose 2022-0 No Unknown 3-23 00:00: 00 Dose 2022-0 No Unknown 3-23 00:00: 00 Dose 2022-0 No Unknown 3-23 00:00: 00 Dose 2022-0 No Unknown 3-23 00:00: 00 Dose 2022-0 No Unknown 3-23 00:00: 00 Dose 2022-0 No Unknown 3-23 00:00: 00 Dose 2022-0 No Unknown 3-23 00:00: 00 Dose 2022-0 No Unknown 3-23 00:00: 00 Dose 2022-0 No Unknown 3-23 00:00: 00 Dose 2022-0 No Unknown 3-23 00:00: 00 Dose 2022-0 No Unknown 3-23 00:00: 00 Dose 2022-0 No Unknown 3-23 00:00: 00 Dose 2022-0 No Unknown 3-23 00:00: 00 Dose 2022-0 No Unknown 3-23 00:00: 00 Dose 2022-0 No Unknown 3-23 00:00: 00 Dose 2022-0 No Unknown 3-23 00:00: 00 Dose 2022-0 No Unknown 3-23 00:00: 00 Dose 2022-0 No Unknown 3-23 00:00: 00 Dose 2022-0 No Unknown 3-23 00:00: 00 Dose 2022-0 No Unknown 3-23 00:00: 00 Dose 2022-0 No Unknown 3-23 00:00: 00 Dose 2022-0 No Unknown 3-23 00:00: 00 Dose 2022-0 No Unknown 3-23 00:00: 00 Dose 2022-0 No Unknown 3-23 00:00: 00 Dose 2022-0 No Unknown 3-23 00:00: 00 Dose 2022-0 No Unknown 3-23 00:00: 00 Dose 2022-0 No Unknown 3-23 00:00: 00 Dose 2022-0 No Unknown 3-23 00:00: 00 Dose 2022-0 No Unknown 3-23 00:00: 00 Dose 2022-0 No Unknown 3-23 00:00: 00 Dose 2022-0 No Unknown 3-23 00:00: 00 Dose 2022-0 No Unknown 3-23 00:00: 00 Dose 2022-0 No Unknown 3-23 00:00: 00 Dose 2022-0 No Unknown 3-23 00:00: 00 Dose 2022-0 No Unknown 3-23 00:00: 00 Dose 2022-0 No Unknown 3-23 00:00: 00 Dose 2022-0 No Unknown 3-23 00:00: 00 Dose 2022-0 No Unknown 3-23 00:00: 00 Dose 2022-0 No Unknown 3-23 00:00: 00 Dose 2022-0 No Unknown 3-23 00:00: 00 Dose 2022-0 No Unknown 3-23 00:00: 00 Dose 2022-0 No Unknown 3-23 00:00: 00 Dose 2022-0 No Unknown 3-23 00:00: 00 Dose 2022-0 No Unknown 3-23 00:00: 00 Dose 2022-0 No Unknown 3-23 00:00: 00 Dose 2022-0 No Unknown 3-23 00:00: 00 Dose 2022-0 No Unknown 3-23 00:00: 00 Dose 2022-0 No Unknown 3-23 00:00: 00 Dose 2022-0 No Unknown 3-23 00:00: 00 Dose 2022-0 No Unknown 3-23 00:00: 00 Dose 2022-0 No Unknown 3-23 00:00: 00 Dose 2022-0 No Unknown 3-23 00:00: 00 Dose 2022-0 No Unknown 3-23 00:00: 00 Dose 2022-0 No Unknown 3-23 00:00: 00 Dose 2022-0 No Unknown 3-23 00:00: 00 Dose 2022-0 No Unknown 3-23 00:00: 00 Dose 2022-0 No Unknown 3-23 00:00: 00 Dose 2022-0 No Unknown 3-23 00:00: 00 Dose 2022-0 No Unknown 3-23 00:00: 00 Dose 2022-0 No Unknown 3-23 00:00: 00 Dose 2022-0 No Unknown 3-23 00:00: 00 Dose 2022-0 No Unknown 3-23 00:00: 00 Dose 2022-0 No Unknown 3-23 00:00: 00 Dose 2022-0 No Unknown 3-23 00:00: 00 Dose 2022-0 No Unknown 3-23 00:00: 00 Dose 2022-0 No Unknown 3-23 00:00: 00 Dose 2022-0 No Unknown 3-23 00:00: 00 Dose 2022-0 No Unknown 3-23 00:00: 00 Dose 2022-0 No Unknown 3-23 00:00: 00 Dose 2022-0 No Unknown 3-23 00:00: 00 Dose 2022-0 No Unknown 3-23 00:00: 00 Dose 2022-0 No Unknown 3-23 00:00: 00 Dose 2022-0 No Unknown 3-23 00:00: 00 Dose 2022-0 No Unknown 3-23 00:00: 00 Dose 2022-0 No Unknown 3-23 00:00: 00 Dose 2022-0 No Unknown 3-23 00:00: 00 Dose 2022-0 No Unknown 3-23 00:00: 00 Dose 2022-0 No Unknown 3-23 00:00: 00 Dose 2022-0 No Unknown 3-23 00:00: 00 Dose 2022-0 No Unknown 3-23 00:00: 00 Dose 2022-0 No Unknown 3-23 00:00: 00 Dose 2022-0 No Unknown 3-23 00:00: 00 Dose 2022-0 No Unknown 3-23 00:00: 00 Dose 2022-0 No Unknown 3-23 00:00: 00 Dose 2022-0 No Unknown 3-23 00:00: 00 Dose 2022-0 No Unknown 3-23 00:00: 00 Dose 2022-0 No Unknown 3-23 00:00: 00 Dose 2022-0 No Unknown 3-23 00:00: 00 Dose 2022-0 No Unknown 3-23 00:00: 00 Dose 2022-0 No Unknown 3-23 00:00: 00 Dose 2022-0 No Unknown 3-23 00:00: 00 Dose 2022-0 No Unknown 3-23 00:00: 00 Dose 2022-0 No Unknown 3-23 00:00: 00 Dose 2022-0 No Unknown 3-23 00:00: 00 Dose 2022-0 No Unknown 3-23 00:00: 00 Dose 2022-0 No Unknown 3-23 00:00: 00 Dose 2022-0 No Unknown 3-23 00:00: 00 Dose 2022-0 No Unknown 3-23 00:00: 00 Dose 2022-0 No Unknown 3-23 00:00: 00 Dose 2022-0 No Unknown 3-23 00:00: 00 Dose 2022-0 No Unknown 3-23 00:00: 00 Dose 2022-0 No Unknown 3-23 00:00: 00 Dose 2022-0 No Unknown 3-23 00:00: 00 Dose 2022-0 No Unknown 3-23 00:00: 00 Dose 2022-0 No Unknown 3-23 00:00: 00 Dose 2022-0 No Unknown 3-23 00:00: 00 Dose 2022-0 No Unknown 3-23 00:00: 00 Dose 2022-0 No Unknown 3-23 00:00: 00 Dose 2022-0 No Unknown 3-23 00:00: 00 Dose 2022-0 No Unknown 3-23 00:00: 00 Dose 2022-0 No Unknown 3-23 00:00: 00 Dose 2022-0 No Unknown 3-23 00:00: 00 Dose 2022-0 No Unknown 3-23 00:00: 00 Dose 2022-0 No Unknown 3-23 00:00: 00 Dose 2022-0 No Unknown 3-23 00:00: 00 Dose 2022-0 No Unknown 3-23 00:00: 00 Dose 2022-0 No Unknown 3-23 00:00: 00 Dose 2022-0 No Unknown 3-23 00:00: 00 Dose 2022-0 No Unknown 3-23 00:00: 00 Dose 2022-0 No Unknown 3-23 00:00: 00 Dose 2022-0 No Unknown 3-23 00:00: 00 Dose 2022-0 No Unknown 3-23 00:00: 00 Dose 2022-0 No Unknown 3-23 00:00: 00 Dose 2022-0 No Unknown 3-23 00:00: 00 Dose 2022-0 No Unknown 3-23 00:00: 00 Dose 2022-0 No Unknown 3-23 00:00: 00 Dose 2022-0 No Unknown 3-23 00:00: 00 Dose 2022-0 No Unknown 3-23 00:00: 00 Dose 2022-0 No Unknown 3-23 00:00: 00 Dose 2022-0 No Unknown 3-23 00:00: 00 Dose 2022-0 No Unknown 3-23 00:00: 00 Dose 2022-0 No Unknown 3-23 00:00: 00 Dose 2022-0 No Unknown 3-23 00:00: 00 Dose 2022-0 No Unknown 3-23 00:00: 00 Dose 2022-0 No Unknown 3-23 00:00: 00 Dose 2022-0 No Unknown 3-23 00:00: 00 Dose 2022-0 No Unknown 3-23 00:00: 00 Dose 2022-0 No Unknown 3-23 00:00: 00 Dose 2022-0 No Unknown 3-23 00:00: 00 Dose 2022-0 No Unknown 3-23 00:00: 00 Dose 2022-0 No Unknown 3-23 00:00: 00 Dose 2022-0 No Unknown 3-23 00:00: 00 Dose 2022-0 No Unknown 3-23 00:00: 00 Dose 2022-0 No Unknown 3-23 00:00: 00 Dose 2022-0 No Unknown 3-23 00:00: 00 Dose 2022-0 No Unknown 3-23 00:00: 00 Dose 2022-0 No Unknown 3-23 00:00: 00 Dose 2022-0 No Unknown 3-23 00:00: 00 Dose 2022-0 No Unknown 3-23 00:00: 00 Dose 2022-0 No Unknown 3-23 00:00: 00 Dose 2022-0 No Unknown 3-23 00:00: 00 Dose 2022-0 No Unknown 3-23 00:00: 00 Dose 2022-0 No Unknown 3-23 00:00: 00 Dose 2022-0 No Unknown 3-23 00:00: 00 Dose 2022-0 No Unknown 3-23 00:00: 00 Dose 2022-0 No Unknown 3-23 00:00: 00 Dose 2022-0 No Unknown 3-23 00:00: 00 Dose 2022-0 No Unknown 3-23 00:00: 00 Dose 2022-0 No Unknown 3-23 00:00: 00 Dose 2022-0 No Unknown 3-23 00:00: 00 Dose 2022-0 No Unknown 3-23 00:00: 00 Dose 2022-0 No Unknown 3-23 00:00: 00 Dose 2022-0 No Unknown 3-23 00:00: 00 Dose 2022-0 No Unknown 3-23 00:00: 00 Dose 2022-0 No Unknown 3-23 00:00: 00 Dose 2022-0 No Unknown 3-23 00:00: 00 Dose 2022-0 No Unknown 3-23 00:00: 00 Dose 2022-0 No Unknown 3-23 00:00: 00 Dose 2022-0 No Unknown 3-23 00:00: 00 Dose 2022-0 No Unknown 3-23 00:00: 00 Dose 2022-0 No Unknown 3-23 00:00: 00 Dose 2022-0 No Unknown 3-23 00:00: 00 Dose 2022-0 No Unknown 3-23 00:00: 00 Dose 2022-0 No Unknown 3-23 00:00: 00 Dose 2022-0 No Unknown 3-23 00:00: 00 Dose 2022-0 No Unknown 3-23 00:00: 00 Dose 2022-0 No Unknown 3-23 00:00: 00 Dose 2022-0 No Unknown 3-23 00:00: 00 Dose 2022-0 No Unknown 3-23 00:00: 00 Dose 2022-0 No Unknown 3-23 00:00: 00 Dose 2022-0 No Unknown 3-23 00:00: 00 Dose 2022-0 No Unknown 3-23 00:00: 00 Dose 2022-0 No Unknown 3-23 00:00: 00 Dose 2022-0 No Unknown 3-23 00:00: 00 Dose 2022-0 No Unknown 3-23 00:00: 00 Dose 2022-0 No Unknown 3-23 00:00: 00 Dose 2022-0 No Unknown 3-23 00:00: 00 Dose 2022-0 No Unknown 3-23 00:00: 00 Dose 2022-0 No Unknown 3-23 00:00: 00 Dose 2022-0 No Unknown 3-23 00:00: 00 Dose 2022-0 No Unknown 3-23 00:00: 00 Dose 2022-0 No Unknown 3-23 00:00: 00 Dose 2022-0 No Unknown 3-23 00:00: 00 Dose 2022-0 No Unknown 3-23 00:00: 00 Dose 2022-0 No Unknown 3-23 00:00: 00 Dose 2022-0 No Unknown 3-23 00:00: 00 Dose 2022-0 No Unknown 3-23 00:00: 00 Dose 2022-0 No Unknown 3-23 00:00: 00 Dose 2022-0 No Unknown 3-23 00:00: 00 Dose 2022-0 No Unknown 3-23 00:00: 00 Dose 2022-0 No Unknown 3-23 00:00: 00 Dose 2022-0 No Unknown 3-23 00:00: 00 Dose 2022-0 No Unknown 3-23 00:00: 00 Dose 2022-0 No Unknown 3-23 00:00: 00 Dose 2022-0 No Unknown 3-23 00:00: 00 Dose 2022-0 No Unknown 3-23 00:00: 00 Dose 2022-0 No Unknown 3-23 00:00: 00 Dose 2022-0 No Unknown 3-23 00:00: 00 Dose 2022-0 No Unknown 3-23 00:00: 00 Dose 2022-0 No Unknown 3-23 00:00: 00 Dose 2022-0 No Unknown 3-23 00:00: 00 Dose 2022-0 No Unknown 3-23 00:00: 00 Dose 2022-0 No Unknown 3-23 00:00: 00 Dose 2022-0 No Unknown 3-23 00:00: 00 Dose 2022-0 No Unknown 3-23 00:00: 00 Dose 2022-0 No Unknown 3-23 00:00: 00 Dose 2022-0 No Unknown 3-23 00:00: 00 Dose 2022-0 No Unknown 3-23 00:00: 00 Dose 2022-0 No Unknown 3-23 00:00: 00 Dose 2022-0 No Unknown 3-23 00:00: 00 Dose 2022-0 No Unknown 3-23 00:00: 00 Dose 2022-0 No Unknown 3-23 00:00: 00 Dose 2022-0 No Unknown 3-23 00:00: 00 Dose 2022-0 No Unknown 3-23 00:00: 00 Dose 2022-0 No Unknown 3-23 00:00: 00 Dose 2022-0 No Unknown 3-23 00:00: 00 Dose 2022-0 No Unknown 3-23 00:00: 00 Dose 2022-0 No Unknown 3-23 00:00: 00 Dose 2022-0 No Unknown 3-23 00:00: 00 Dose 2022-0 No Unknown 3-23 00:00: 00 Dose 2022-0 No Unknown 3-23 00:00: 00 Dose 2022-0 No Unknown 3-23 00:00: 00 Dose 2022-0 No Unknown 3-23 00:00: 00 Dose 2022-0 No Unknown 3-23 00:00: 00 Dose 2022-0 No Unknown 3-23 00:00: 00 Dose 2022-0 No Unknown 3-23 00:00: 00 Dose 2022-0 No Unknown 3-23 00:00: 00 Dose 2022-0 No Unknown 3-23 00:00: 00 Dose 2022-0 No Unknown 3-23 00:00: 00 Dose 2022-0 No Unknown 3-23 00:00: 00 Dose 2022-0 No Unknown 3-23 00:00: 00 Dose 2022-0 No Unknown 3-23 00:00: 00 Dose 2022-0 No Unknown 3-23 00:00: 00 Dose 2022-0 No Unknown 3-23 00:00: 00 Dose 2022-0 No Unknown 3-23 00:00: 00 Dose 2022-0 No Unknown 3-23 00:00: 00 Dose 2022-0 No Unknown 3-23 00:00: 00 Dose 2022-0 No Unknown 3-23 00:00: 00 Dose 2022-0 No Unknown 3-23 00:00: 00 Dose 2022-0 No Unknown 3-23 00:00: 00 Dose 2022-0 No Unknown 3-23 00:00: 00 Dose 2022-0 No Unknown 3-23 00:00: 00 Dose 2022-0 No Unknown 3-23 00:00: 00 Dose 2022-0 No Unknown 3-23 00:00: 00 Dose 2022-0 No Unknown 3-23 00:00: 00 Dose 2022-0 No Unknown 3-23 00:00: 00 Dose 2022-0 No Unknown 3-23 00:00: 00 Dose 2022-0 No Unknown 3-23 00:00: 00 Dose 2022-0 No Unknown 3-23 00:00: 00 Dose 2022-0 No Unknown 3-23 00:00: 00 Dose 2022-0 No Unknown 3-23 00:00: 00 Dose 2022-0 No Unknown 3-23 00:00: 00 Dose 2022-0 No Unknown 3-23 00:00: 00 Dose 2022-0 No Unknown 3-23 00:00: 00 Dose 2022-0 No Unknown 3-23 00:00: 00 Dose 2022-0 No Unknown 3-23 00:00: 00 Dose 2022-0 No Unknown 3-23 00:00: 00 Dose 2022-0 No Unknown 3-23 00:00: 00 Dose 2022-0 No Unknown 3-23 00:00: 00 Dose 2022-0 No Unknown 3-23 00:00: 00 Dose 2022-0 No Unknown 3-23 00:00: 00 Dose 2022-0 No Unknown 3-23 00:00: 00 Dose 2022-0 No Unknown 3-23 00:00: 00 Dose 2022-0 No Unknown 3-23 00:00: 00 Dose 2022-0 No Unknown 3-23 00:00: 00 Dose 2022-0 No Unknown 3-23 00:00: 00 Dose 2022-0 No Unknown 3-23 00:00: 00 Dose 2022-0 No Unknown 3-23 00:00: 00 Dose 2022-0 No Unknown 3-23 00:00: 00 Dose 2022-0 No Unknown 3-23 00:00: 00 Dose 2022-0 No Unknown 3-23 00:00: 00 Dose 2022-0 No Unknown 3-23 00:00: 00 Dose 2022-0 No Unknown 3-23 00:00: 00 Dose 2022-0 No Unknown 3-23 00:00: 00 Dose 2022-0 No Unknown 3-23 00:00: 00 Dose 2022-0 No Unknown 3-23 00:00: 00 Dose 2022-0 No Unknown 3-23 00:00: 00 Dose 2022-0 No Unknown 3-23 00:00: 00 Dose 2022-0 No Unknown 3-23 00:00: 00 Dose 2022-0 No Unknown 3-23 00:00: 00 Dose 2022-0 No Unknown 3-23 00:00: 00 Dose 2022-0 No Unknown 3-23 00:00: 00 Dose 2022-0 No Unknown 3-23 00:00: 00 Dose 2022-0 No Unknown 3-23 00:00: 00 Dose 2022-0 No Unknown 3-23 00:00: 00 Dose 2022-0 No Unknown 3-23 00:00: 00 Dose 2022-0 No Unknown 3-23 00:00: 00 Dose 2022-0 No Unknown 3-23 00:00: 00 Dose 2022-0 No Unknown 3-23 00:00: 00 Dose 2022-0 No Unknown 3-23 00:00: 00 Dose 2022-0 No Unknown 3-23 00:00: 00 Dose 2022-0 No Unknown 3-23 00:00: 00 Dose 2022-0 No Unknown 3-23 00:00: 00 Dose 2022-0 No Unknown 3-23 00:00: 00 Dose 2022-0 No Unknown 3-23 00:00: 00 Dose 2022-0 No Unknown 3-23 00:00: 00 Dose 2022-0 No Unknown 3-23 00:00: 00 Dose 2022-0 No Unknown 3-23 00:00: 00 Dose 2022-0 No Unknown 3-23 00:00: 00 Dose 2022-0 No Unknown 3-23 00:00: 00 Dose 2022-0 No Unknown 3-23 00:00: 00 Dose 2022-0 No Unknown 3-23 00:00: 00 Dose 2022-0 No Unknown 3-23 00:00: 00 Dose 2022-0 No Unknown 3-23 00:00: 00 Dose 2022-0 No Unknown 3-23 00:00: 00 Dose 2022-0 No Unknown 3-23 00:00: 00 Dose 2022-0 No Unknown 3-23 00:00: 00 Dose 2022-0 No Unknown 3-23 00:00: 00 Dose 2022-0 No Unknown 3-23 00:00: 00 Dose 2022-0 No Unknown 3-23 00:00: 00 Dose 2022-0 No Unknown 3-23 00:00: 00 Dose 2022-0 No Unknown 3-23 00:00: 00 Dose 2022-0 No Unknown 3-23 00:00: 00 Dose 2022-0 No Unknown 3-23 00:00: 00 Dose 2022-0 No Unknown 3-23 00:00: 00 Dose 2022-0 No Unknown 3-23 00:00: 00 Dose 2022-0 No Unknown 3-23 00:00: 00 Dose 2022-0 No Unknown 3-23 00:00: 00 Dose 2022-0 No Unknown 3-23 00:00: 00 Dose 2022-0 No Unknown 3-23 00:00: 00 Dose 2022-0 No Unknown 3-23 00:00: 00 Dose 2022-0 No Unknown 3-23 00:00: 00 Dose 2022-0 No Unknown 3-23 00:00: 00 Dose 2022-0 No Unknown 3-23 00:00: 00 Dose 2022-0 No Unknown 3-23 00:00: 00 Dose 2022-0 No Unknown 3-23 00:00: 00 Dose 2022-0 No Unknown 3-23 00:00: 00 Dose 2022-0 No Unknown 3-23 00:00: 00 Dose 2022-0 No Unknown 3-23 00:00: 00 Dose 2022-0 No Unknown 3-23 00:00: 00 Dose 2022-0 No Unknown 3-23 00:00: 00 Dose 2022-0 No Unknown 3-23 00:00: 00 Dose 2022-0 No Unknown 3-23 00:00: 00 Dose 2022-0 No Unknown 3-23 00:00: 00 Dose 2022-0 No Unknown 3-23 00:00: 00 Dose 2022-0 No Unknown 3-23 00:00: 00 Dose 2022-0 No Unknown 3-23 00:00: 00 Dose 2022-0 No Unknown 3-23 00:00: 00 Dose 2022-0 No Unknown 3-23 00:00: 00 Dose 2022-0 No Unknown 3-23 00:00: 00 Dose 2022-0 No Unknown 3-23 00:00: 00 Dose 2022-0 No Unknown 3-23 00:00: 00 Dose 2022-0 No Unknown 3-23 00:00: 00 Dose 2022-0 No Unknown 3-23 00:00: 00 Dose 2022-0 No Unknown 3-23 00:00: 00 Dose 2022-0 No Unknown 3-23 00:00: 00 Dose 2022-0 No Unknown 3-23 00:00: 00 Dose 2022-0 No Unknown 3-23 00:00: 00 Dose 2022-0 No Unknown 3-23 00:00: 00 Dose 2022-0 No Unknown 3-23 00:00: 00 Dose 2022-0 No Unknown 3-23 00:00: 00 Dose 2022-0 No Unknown 3-23 00:00: 00 Dose 2022-0 No Unknown 3-23 00:00: 00 Dose 2022-0 No Unknown 3-23 00:00: 00 Dose 2022-0 No Unknown 3-23 00:00: 00 Dose 2022-0 No Unknown 3-23 00:00: 00 Dose 2022-0 No Unknown 3-23 00:00: 00 Dose 2022-0 No Unknown 3-23 00:00: 00 Dose 2022-0 No Unknown 3-23 00:00: 00 Dose 2022-0 No Unknown 3-23 00:00: 00 Dose 2022-0 No Unknown 3-23 00:00: 00 Dose 2022-0 No Unknown 3-23 00:00: 00 Dose 2022-0 No Unknown 3-23 00:00: 00 Dose 2022-0 No Unknown 3-23 00:00: 00 Dose 2022-0 No Unknown 3-23 00:00: 00 Dose 2022-0 No Unknown 3-23 00:00: 00 Dose 2022-0 No Unknown 3-23 00:00: 00 Dose 2022-0 No Unknown 3-23 00:00: 00 Dose 2022-0 No Unknown 3-23 00:00: 00 Dose 2022-0 No Unknown 3-23 00:00: 00 Dose 2022-0 No Unknown 3-23 00:00: 00 Dose 2022-0 No Unknown 3-23 00:00: 00 Dose 2022-0 No Unknown 3-23 00:00: 00 Dose 2022-0 No Unknown 3-23 00:00: 00 Dose 2022-0 No Unknown 3-23 00:00: 00 Dose 2022-0 No Unknown 3-23 00:00: 00 Dose 2022-0 No Unknown 3-23 00:00: 00 Dose 2022-0 No Unknown 3-23 00:00: 00 Dose 2022-0 No Unknown 3-23 00:00: 00 Dose 2022-0 No Unknown 3-23 00:00: 00 Dose 2022-0 No Unknown 3-23 00:00: 00 Dose 2022-0 No Unknown 3-23 00:00: 00 Dose 2022-0 No Unknown 3-23 00:00: 00 Dose 2022-0 No Unknown 3-23 00:00: 00 Dose 2022-0 No Unknown 3-23 00:00: 00 Dose 2022-0 No Unknown 3-23 00:00: 00 Dose 2022-0 No Unknown 3-23 00:00: 00 Dose 2022-0 No Unknown 3-23 00:00: 00 Dose 2022-0 No Unknown 3-23 00:00: 00 Dose 2022-0 No Unknown 3-23 00:00: 00 Dose 2022-0 No Unknown 3-23 00:00: 00 Dose 2022-0 No Unknown 3-23 00:00: 00 Dose 2022-0 No Unknown 3-23 00:00: 00 Dose 2022-0 No Unknown 3-23 00:00: 00 Dose 2022-0 No Unknown 3-23 00:00: 00 Dose 2022-0 No Unknown 3-23 00:00: 00 Dose 2022-0 No Unknown 3-23 00:00: 00 Dose 2022-0 No Unknown 3-23 00:00: 00 Dose 2022-0 No Unknown 3-23 00:00: 00 Dose 2022-0 No Unknown 3-23 00:00: 00 Dose 2022-0 No Unknown 3-23 00:00: 00 Dose 2022-0 No Unknown 3-23 00:00: 00 Dose 2022-0 No Unknown 3-23 00:00: 00 Dose 2022-0 No Unknown 3-23 00:00: 00 Dose 2022-0 No Unknown 3-23 00:00: 00 Dose 2022-0 No Unknown 3-23 00:00: 00 Dose 2022-0 No Unknown 3-23 00:00: 00 Dose 2022-0 No Unknown 3-23 00:00: 00 Dose 2022-0 No Unknown 3-23 00:00: 00 Dose 2022-0 No Unknown 3-23 00:00: 00 Dose 2022-0 No Unknown 3-23 00:00: 00 Dose 2022-0 No Unknown 3-23 00:00: 00 Dose 2022-0 No Unknown 3-23 00:00: 00 Dose 2022-0 No Unknown 3-23 00:00: 00 Dose 2022-0 No Unknown 3-23 00:00: 00 Dose 2022-0 No Unknown 3-23 00:00: 00 Dose 2022-0 No Unknown 3-23 00:00: 00 Dose 2022-0 No Unknown 3-23 00:00: 00 Dose 2022-0 No Unknown 3-23 00:00: 00 Dose 2022-0 No Unknown 3-23 00:00: 00 Dose 2022-0 No Unknown 3-23 00:00: 00 Dose 2022-0 No Unknown 3-23 00:00: 00 Dose 2022-0 No Unknown 3-23 00:00: 00 Dose 2022-0 No Unknown 3-23 00:00: 00 Dose 2022-0 No Unknown 3-23 00:00: 00 Dose 2022-0 No Unknown 3-23 00:00: 00 Dose 2022-0 No Unknown 3-23 00:00: 00 Dose 2022-0 No Unknown 3-23 00:00: 00 Dose 2-0 No Unknown 3-23 00:00: 00 Dose 2022-0 No Unknown 3-23 00:00: 00 Dose 2022-0 No Unknown 3-23 00:00: 00 Dose 2022-0 No Unknown 3-23 00:00: 00 Dose 2022-0 No Unknown 3-23 00:00: 00 Dose 2022-0 No Unknown 3-23 00:00: 00 Dose 2022-0 No Unknown 3-23 00:00: 00 Lantus 2020-1 No (3 mL) Solostar 2-30 U-100 00:00: Insulin 100 00 unit/mL (3 mL) subcutaneou s pen lovastatin 2020- No 1mg 20 mg 2-30 tablet 00:00: 00 glipizide 5 2020-1 No 1mg mg tablet 2-30 00:00: 00 Dose 2020-1 No Unknown 2-30 00:00: 00 duloxetine 2020-1 No 1mg 30 mg 2-30 capsule,del 00:00: ayed 00 release Lantus 2020-1 No (3 mL) Solostar 2-30 U-100 00:00: Insulin 100 00 unit/mL (3 mL) subcutaneou s pen lovastatin 2020- No 1mg 20 mg 2-30 tablet 00:00: 00 glipizide 5 2020-1 No 1mg mg tablet 2-30 00:00: 00 carvedilol 2020-1 No 1mg 25 mg 2-30 tablet 00:00: 00 Lantus 2020-1 No (3 mL) Solostar 2-30 U-100 00:00: Insulin 100 00 unit/mL (3 mL) subcutaneou s pen lovastatin 2020- No 1mg 20 mg 2-30 tablet 00:00: 00 glipizide 5 2020-1 No 1mg mg tablet 2-30 00:00: 00 Dose 2020-1 No Unknown 2-30 00:00: 00 duloxetine 2020-1 No 1mg 30 mg 2-30 capsule,del 00:00: ayed 00 release duloxetine 2020-1 No 1mg 30 mg 2-30 capsule,del 00:00: ayed 00 release lovastatin 2020-1 No 1mg 20 mg 2-13 tablet 00:00: 00 glipizide 5 2020-1 No 1mg mg tablet 2-13 00:00: 00 lovastatin 2020-1 No 1mg 20 mg 2-13 tablet 00:00: 00 glipizide 5 2020-1 No 1mg mg tablet 2-13 00:00: 00 lovastatin 2020-1 No 1mg 20 mg 2-13 tablet 00:00: 00 glipizide 5 2020-1 No 1mg mg tablet 2-13 00:00: 00 glipizide 5 2020-1 No 1mg mg tablet 0-28 00:00: 00 lovastatin 2020-1 No 1mg 20 mg 0-28 tablet 00:00: 00 loratadine 2020-1 No 1mg 10 mg 0-28 tablet 00:00: 00 Dose 2020-1 No Unknown 0-28 00:00: 00 glipizide 5 2020-1 No 1mg mg tablet 0-28 00:00: 00 lovastatin 1-1 No 1mg 20 mg 0-28 tablet 00:00: 00 loratadine 1-1 No 1mg 10 mg 0-28 tablet 00:00: 00 carvedilol 1-1 No 1mg 25 mg 0-28 tablet 00:00: 00 glipizide 5 2020-1 No 1mg mg tablet 0-28 00:00: 00 lovastatin 1-1 No 1mg 20 mg 0-28 tablet 00:00: 00 loratadine 1-1 No 1mg 10 mg 0-28 tablet 00:00: 00 Dose 1-1 No Unknown 0-28 00:00: 00 loratadine 1-0 No 1mg 10 mg 8-03 tablet 00:00: 00 lovastatin 1-0 No 1mg 20 mg 8-03 tablet 00:00: 00 amlodipine 2021-0 No 1mg 5 mg tablet 8 00:00: 00 glipizide 5 1-0 No 1mg mg tablet 8 00:00: 00 carvedilol 2021-0 No 1mg 25 mg 8-03 tablet 00:00: 00 loratadine 2021-0 No 1mg 10 mg 8-03 tablet 00:00: 00 lovastatin 2020-0 No 1mg 20 mg 8- tablet 00:00: 00 amlodipine 2020-0 No 1mg 5 mg tablet 04-23 00:00: 00 glipizide 5 2020-0 No 1mg mg tablet 04-23 00:00: 00 carvedilol 2020-0 No 1mg 25 mg 8- tablet 00:00: 00 loratadine 1-0 No 1mg 10 mg 8- tablet 00:00: 00 lovastatin 1-0 No 1mg 20 mg 8- tablet 00:00: 00 amlodipine 2020-0 No 1mg 5 mg tablet 04-23 00:00: 00 glipizide 5 2020-0 No 1mg mg tablet 04-23 00:00: 00 carvedilol 2020-0 No 1mg 25 mg 8- tablet 00:00: 00 Lantus 1-0 No (3 mL) Solostar 7-01 U-100 00:00: Insulin 100 00 unit/mL (3 mL) subcutaneou s pen Lantus 2020-0 No (3 mL) Solostar 7-01 U-100 00:00: Insulin 100 00 unit/mL (3 mL) subcutaneou s pen Lantus 2020-0 No (3 mL) Solostar 7-01 U-100 00:00: Insulin 100 00 unit/mL (3 mL) subcutaneou s pen Novolin N 2020-0 No unit/mL NPH U-100 6-30 Insulin 00:00: isophane 00 100 unit/mL subcutaneou s susp glipizide 5 2020-0 No 1mg mg tablet 6 00:00: 00 amlodipine 2020-0 No 1mg 5 mg tablet 03-20 00:00: 00 lovastatin 1-0 No 1mg 20 mg 6-30 tablet 00:00: 00 meloxicam 1-0 No 1mg 15 mg 6-30 tablet 00:00: 00 loratadine 1-0 No 1mg 10 mg 6-30 tablet 00:00: 00 vitamin B12 2021-0 No 1mg 0.5 6-30 mg-folic 00:00: acid 1 mg 00 tablet carvedilol 2020-0 No 1mg 25 mg 6-30 tablet 00:00: 00 Novolin N 1-0 No unit/mL NPH U-100 6-30 Insulin 00:00: isophane 00 100 unit/mL subcutaneou s susp glipizide 5 2020-0 No 1mg mg tablet 630 00:00: 00 amlodipine 1-0 No 1mg 5 mg tablet 630 00:00: 00 lovastatin 2021-0 No 1mg 20 mg 6-30 tablet 00:00: 00 meloxicam 2021-0 No 1mg 15 mg 6-30 tablet 00:00: 00 loratadine 2021-0 No 1mg 10 mg 6-30 tablet 00:00: 00 vitamin B12 1-0 No 1mg 0.5 6-30 mg-folic 00:00: acid 1 mg 00 tablet carvedilol 2020-0 No 1mg 25 mg 6-30 tablet 00:00: 00 Novolin N 1-0 No unit/mL NPH U-100 6-30 Insulin 00:00: isophane 00 100 unit/mL subcutaneou s susp glipizide 5 2020-0 No 1mg mg tablet 30 00:00: 00 amlodipine 1-0 No 1mg 5 mg tablet 630 00:00: 00 lovastatin 1-0 No 1mg 20 mg 6-30 tablet 00:00: 00 meloxicam 1-0 No 1mg 15 mg 6-30 tablet 00:00: 00 loratadine 2021-0 No 1mg 10 mg 6-30 tablet 00:00: 00 vitamin B12 1-0 No 1mg 0.5 6-30 mg-folic 00:00: acid 1 mg 00 tablet carvedilol 2020-0 No 1mg 25 mg 6-30 tablet 00:00: 00 fluticasone 2021-0 Yes [id number] 1 spray [facility] propionate 6-12 each ity of 50 00:00: nostril [place] mcg/actuati 00 twice a Medic al on nasal day for 5 Branch spray days then daily fluticasone 2020-0 Yes [id number] 1 spray [facility] propionate 6-12 each ity of 50 00:00: nostril [place] mcg/actuati 00 twice a Medic al on nasal day for 5 Branch spray days then daily fluticasone 2020-0 Yes [id number] 1 spray [facility] propionate 6-12 each ity of 50 00:00: nostril [place] mcg/actuati 00 twice a Medic al on nasal day for 5 Branch spray days then daily fluticasone 2020-0 Yes [id number] 1 spray [facility] propionate 6-12 each ity of 50 00:00: nostril [place] mcg/actuati 00 twice a Medic al on nasal day for 5 Branch spray days then daily fluticasone 2020-0 Yes [id number] 1 spray [facility] propionate 6-12 each ity of 50 00:00: nostril [place] mcg/actuati 00 twice a Medic al on nasal day for 5 Branch spray days then daily fluticasone 2020-0 Yes [id number] 1 spray [facility] propionate 6-12 each ity of 50 00:00: nostril [place] mcg/actuati 00 twice a Medic al on nasal day for 5 Branch spray days then daily fluticasone 2020-0 Yes [id number] 1 spray [facility] propionate 6-12 each ity of 50 00:00: nostril [place] mcg/actuati 00 twice a Medic al on nasal day for 5 Branch spray days then daily acetaminoph 2020-0 Yes 1/2 - 1 [facility] vers en-codeine 6-12 tab Every ity of 300-30 mg 00:00: 4hrs as [place] tablet 00 needed for Medical pain or Branch cough requiring narcotic Indication s: cough fluticasone 2020-0 Yes [id number] 1 spray [facility] propionate 6-12 each ity of 50 00:00: nostril [place] mcg/actuati 00 twice a Medic al on nasal day for 5 Branch spray days then daily acetaminoph 2020-0 Yes 1/2 - 1 [facility] vers en-codeine 6-12 tab Every ity of 300-30 mg 00:00: 4hrs as [place] tablet 00 needed for Medical pain or Branch cough requiring narcotic Indication s: cough acetaminoph 2021- No 1/2 - 1 Un óscar en-codeine 6-12 05-14 tab Every ity of 300-30 mg 00:00: 00:00 4hrs [place] tablet 00 :00 needed for Medical pain or Branch cough requiring narcotic Indication s: cough Novolin N 2020-0 No unit/mL NPH U-100 2-02 Insulin 00:00: isophane 00 100 unit/mL subcutaneou s susp glipizide 5 1-0 No 1mg mg tablet 2 00:00: 00 Novolin N 2021-0 No unit/mL NPH U-100 2 Insulin 00:00: isophane 00 100 unit/mL subcutaneou s susp glipizide 5 2020-0 No 1mg mg tablet 2 00:00: 00 Novolin N 2021-0 No unit/mL NPH U-100 2 Insulin 00:00: isophane 00 100 unit/mL subcutaneou s susp glipizide 5 2020-0 No 1mg mg tablet 2 00:00: 00 amlodipine 2020-0 No 1mg 5 mg tablet 8 00:00: 00 amlodipine 2020-0 No 1mg 5 mg tablet 8 00:00: 00 amlodipine 2020-0 No 1mg 5 mg tablet 8 00:00: 00 lovastatin 2020-0 No 1mg 20 mg 7-29 tablet 00:00: 00 amlodipine 2020-0 No 1mg 5 mg tablet 7 00:00: 00 carvedilol 2020-0 No 1mg 25 mg 7-29 tablet 00:00: 00 clonidine 2020-0 No 1mg HCl 0.2 mg 7-29 tablet 00:00: 00 lovastatin 2020-0 No 1mg 20 mg 7-29 tablet 00:00: 00 amlodipine 2020-0 No 1mg 5 mg tablet 7 00:00: 00 carvedilol 2020-0 No 1mg 25 mg 7-29 tablet 00:00: 00 clonidine 2020-0 No 1mg HCl 0.2 mg 7-29 tablet 00:00: 00 lovastatin 2020-0 No 1mg 20 mg 7-29 tablet 00:00: 00 amlodipine 2020-0 No 1mg 5 mg tablet 7 00:00: 00 carvedilol 2020-0 No 1mg 25 mg 7-29 tablet 00:00: 00 clonidine 2020-0 No 1mg HCl 0.2 mg 7-29 tablet 00:00: 00 meloxicam 2020-0 No 1mg 15 mg 4-30 tablet 00:00: 00 tizanidine 2020-0 No 1mg 4 mg tablet 430 00:00: 00 meloxicam 2020-0 No 1mg 15 mg 4-30 tablet 00:00: 00 tizanidine 2020-0 No 1mg 4 mg tablet 4-30 00:00: 00 meloxicam 2020-0 No 1mg 15 mg 4-30 tablet 00:00: 00 tizanidine 2020-0 No 1mg 4 mg tablet 4-30 00:00: 00 lovastatin 2020-0 No 1mg 20 mg 4-29 tablet 00:00: 00 amlodipine 2020-0 No 1mg 5 mg tablet 4- 00:00: 00 glipizide 5 2020-0 No 1mg mg tablet 4- 00:00: 00 carvedilol 2020-0 No 1mg 25 mg 4-29 tablet 00:00: 00 clonidine 2020-0 No 1mg HCl 0.2 mg 4-29 tablet 00:00: 00 lovastatin 2020-0 No 1mg 20 mg 4-29 tablet 00:00: 00 amlodipine 2020-0 No 1mg 5 mg tablet 4- 00:00: 00 glipizide 5 2020-0 No 1mg mg tablet 4- 00:00: 00 carvedilol 2020-0 No 1mg 25 mg 4-29 tablet 00:00: 00 clonidine 2020-0 No 1mg HCl 0.2 mg 4-29 tablet 00:00: 00 lovastatin 2020-0 No 1mg 20 mg 4-29 tablet 00:00: 00 amlodipine 2020-0 No 1mg 5 mg tablet 4- 00:00: 00 glipizide 5 2020-0 No 1mg mg tablet 4- 00:00: 00 carvedilol 2020-0 No 1mg 25 mg 4-29 tablet 00:00: 00 clonidine 2020-0 No 1mg HCl 0.2 mg 4-29 tablet 00:00: 00 lovastatin 2020-0 No 1mg 20 mg 4-08 tablet 00:00: 00 lovastatin 2020-0 No 1mg 20 mg 4-08 tablet 00:00: 00 lovastatin 2020-0 No 1mg 20 mg 4-08 tablet 00:00: 00 amlodipine 2020-0 No 1mg 5 mg tablet 3- 00:00: 00 amlodipine 2020-0 No 1mg 5 mg tablet 3-17 00:00: 00 amlodipine 2020-0 No 1mg 5 mg tablet 3-17 00:00: 00 loratadine 2020-0 No 1mg 10 mg 3-03 tablet 00:00: 00 lovastatin 2020-0 No 1mg 20 mg 3-03 tablet 00:00: 00 amlodipine 2020-0 No 1mg 5 mg tablet 3-03 00:00: 00 glipizide 5 2020-0 No 1mg mg tablet 3-03 00:00: 00 carvedilol 2020-0 No 1mg 25 mg 3-03 tablet 00:00: 00 clonidine 2020-0 No 1mg HCl 0.2 mg 3-03 tablet 00:00: 00 loratadine 2020-0 No 1mg 10 mg 3-03 tablet 00:00: 00 lovastatin 2020-0 No 1mg 20 mg 3-03 tablet 00:00: 00 amlodipine 2020-0 No 1mg 5 mg tablet 3-03 00:00: 00 glipizide 5 2020-0 No 1mg mg tablet 3-03 00:00: 00 carvedilol 2020-0 No 1mg 25 mg 3-03 tablet 00:00: 00 clonidine 2020-0 No 1mg HCl 0.2 mg 3-03 tablet 00:00: 00 loratadine 2020-0 No 1mg 10 mg 3-03 tablet 00:00: 00 lovastatin 2020-0 No 1mg 20 mg 3-03 tablet 00:00: 00 amlodipine 2020-0 No 1mg 5 mg tablet 3-03 00:00: 00 glipizide 5 2020-0 No 1mg mg tablet 3-03 00:00: 00 carvedilol 2020-0 No 1mg 25 mg 3-03 tablet 00:00: 00 clonidine 2020-0 No 1mg HCl 0.2 mg 3-03 tablet 00:00: 00 Novolin N 2020-0 No 1unit/m NPH U-100 1-29 L Insulin 00:00: isophane 00 100 unit/mL subcutaneou s susp Novolin N 2020-0 No 1unit/m NPH U-100 1-29 L Insulin 00:00: isophane 00 100 unit/mL subcutaneou s susp Novolin N 2020-0 No 1unit/m NPH U-100 1-29 L Insulin 00:00: isophane 00 100 unit/mL subcutaneou s susp amlodipine 2020-0 No 1mg 5 mg tablet 1-24 00:00: 00 loratadine 2020-0 No 1mg 10 mg 1-24 tablet 00:00: 00 lovastatin 2020-0 No 1mg 20 mg 1-24 tablet 00:00: 00 amlodipine 2020-0 No 1mg 5 mg tablet 1-24 00:00: 00 loratadine 2020-0 No 1mg 10 mg 1-24 tablet 00:00: 00 lovastatin 2020-0 No 1mg 20 mg 1-24 tablet 00:00: 00 vitamin B12 2020-0 No 1mg 0.5 1-24 mg-folic 00:00: acid 1 mg 00 tablet carvedilol 2020-0 No 1mg 25 mg 1-24 tablet 00:00: 00 clonidine 2020-0 No 1mg HCl 0.2 mg 1-24 tablet 00:00: 00 glipizide 5 2020-0 No 1mg mg tablet 24 00:00: 00 vitamin B12 2020-0 No 1mg 0.5 1-24 mg-folic 00:00: acid 1 mg 00 tablet carvedilol 2020-0 No 1mg 25 mg 1-24 tablet 00:00: 00 clonidine 2020-0 No 1mg HCl 0.2 mg 1-24 tablet 00:00: 00 glipizide 5 2020-0 No 1mg mg tablet 24 00:00: 00 amlodipine 2020-0 No 1mg 5 mg tablet 124 00:00: 00 loratadine 2020-0 No 1mg 10 mg 1-24 tablet 00:00: 00 lovastatin 2020-0 No 1mg 20 mg 1-24 tablet 00:00: 00 vitamin B12 2020-0 No 1mg 0.5 1-24 mg-folic 00:00: acid 1 mg 00 tablet carvedilol 2020-0 No 1mg 25 mg 1-24 tablet 00:00: 00 clonidine 2020-0 No 1mg HCl 0.2 mg 1-24 tablet 00:00: 00 glipizide 5 2020-0 No 1mg mg tablet 124 00:00: 00 metFORMIN 2019-0 Yes 1000mg Take 1,000 [facility] (FORTAMET) 5-05 mg by ity of 1,000 mg 24 19:20: mouth 2 [place] as hr tablet 02 (two) Medical times Branch daily with meals. carvedilol 2019-0 Yes 25mg Take 25 mg U n[facility] (COREG) 25 5-05 by mouth 2 ity of mg tablet 19:20: (two) [place] 02 times Medical daily with Branch meals. lovastatin Yes 20mg Take 20 mg U n[facility] (MEVACOR) 5-05 by mouth ity of 20 mg 19:20: at [place] tablet 02 bedtime. Medical Branch DINA Yes 81mg Take 81 mg [facility] ASPIRIN 5-05 by mouth ity of ORAL 19:20: daily. [place] [facility] cloniDINE 2018- Yes .2mg Take 0.2 [facility] ers (CATAPRES) 5-05 mg by ity of 0.2 mg 19:20: mouth 2 [place] tablet 02 (two) Medical times Branch daily. diphenhydrA Yes 25mg Take 25 mg [facility] MINE 5-05 by mouth ity of (BENADRYL) 19:20: as needed [place] 25 mg 02 for Medical capsule Allergies. Branch lisinopril- Yes 2{tbl} Take 2 Un óscar hydrochloro 5-05 tablets by it y of thiazide 19:20: mouth [place] (PRINZIDE,Z 02 daily. Medica l ESTORETIC) Branch 20-12.5 mg per tablet losartan-hy Yes 1{tbl} Take 1 Un óscar drochloroth 5-05 tablet by ity of iazide 19:20: mouth [place] 100-25 mg 02 daily. Medical per tablet Branch meloxicam Yes 15mg Take 15 mg Un óscar 15 mg 5-05 by mouth ity of tablet 19:20: daily. [place] [facility] loratadine Yes 10mg Take 10 mg U nivers 10 mg 5-05 by mouth ity of tablet 19:20: daily. [place] [id number] Medical Branch metFORMIN Yes 1000mg Take 1,000 [facility] (FORTAMET) 5-05 mg by ity of 1,000 mg 24 19:20: mouth 2 [place] as hr tablet 02 (two) Medical times Branch daily with meals. carvedilol Yes 25mg Take 25 mg U nivers (COREG) 25 5-05 by mouth 2 ity of mg tablet 19:20: (two) [place] 02 times Medical daily with Branch meals. lovastatin Yes 20mg Take 20 mg U nivers (MEVACOR) 5-05 by mouth ity of 20 mg 19:20: at [place] tablet 02 bedtime. Medical Branch DINA Yes 81mg Take 81 mg [facility] ASPIRIN 5-05 by mouth ity of ORAL 19:20: daily. Medical Branch cloniDINE 2019- Yes .2mg Take 0.2 Univ ers (CATAPRES) 5-05 mg by ity of 0.2 mg 19:20: mouth 2 [place] tablet 02 (two) Medical times Branch daily. diphenhydrA Yes 25mg Take 25 mg [facility] MINE 5-05 by mouth ity of (BENADRYL) 19:20: as needed [place] 25 mg 02 for Medical capsule Allergies. Branch lisinopril- Yes 2{tbl} Take 2 Un óscar hydrochloro 5-05 tablets by it y of thiazide 19:20: mouth [place] (PRINZIDE,Z 02 daily. Medica l ESTORETIC) Branch 20-12.5 mg per tablet losartan-hy Yes 1{tbl} Take 1 Un óscar drochloroth 5-05 tablet by ity of iazide 19:20: mouth [place] 100-25 mg 02 daily. Medical per tablet Branch meloxicam Yes 15mg Take 15 mg Un óscar 15 mg 5-05 by mouth ity of tablet 19:20: daily. Medical Branch loratadine Yes 10mg Take 10 mg [facility] nivers 10 mg 5-05 by mouth ity of tablet 19:20: daily. Medical Branch lovastatin Yes 20mg Take 20 mg [facility] nivers (MEVACOR) 5-05 by mouth ity of 20 mg 14:20: at [place] tablet 02 bedtime. Medical Branch DINA Yes 81mg Take 81 mg [facility] ASPIRIN 5-05 by mouth ity of ORAL 14:20: daily. Medical Branch diphenhydrA Yes 25mg Take 25 mg [facility] MINE 5-05 by mouth ity of (BENADRYL) 14:20: as needed [place] 25 mg 02 for Medical capsule Allergies. Branch losartan-hy Yes 1{tbl} Take 1 Un óscar drochloroth 5-05 tablet by ity of iazide 14:20: mouth [place] 100-25 mg 02 daily. Medical per tablet Branch carvedilol Yes 25mg Take 25 mg [facility] nivers (COREG) 25 5-05 by mouth 2 ity of mg tablet 14:20: (two) [place] 02 times Medical daily with Branch meals. lovastatin 2019 Yes 20mg Take 20 mg U nivers (MEVACOR) 5-05 by mouth ity of 20 mg 14:20: at [place] tablet 02 bedtime. Medical Branch DINA Yes 81mg Take 81 mg [facility] ASPIRIN 5-05 by mouth ity of ORAL 14:20: daily. Medical Branch diphenhydrA Yes 25mg Take 25 mg [facility] MINE 5-05 by mouth ity of (BENADRYL) 14:20: as needed [place] 25 mg 02 for Medical capsule Allergies. Branch losartan-hy Yes 1{tbl} Take 1 Un óscar drochloroth 5-05 tablet by ity of iazide 14:20: mouth [place] 100-25 mg 02 daily. Medical per tablet Branch carvedilol Yes 25mg Take 25 mg U nivers (COREG) 25 5-05 by mouth 2 ity of mg tablet 14:20: (two) [place] 02 times Medical daily with Branch meals. lovastatin Yes 20mg Take 20 mg U nivers (MEVACOR) 5-05 by mouth ity of 20 mg 14:20: at [place] tablet 02 bedtime. Medical Branch DINA Yes 81mg Take 81 mg [facility] ASPIRIN 5-05 by mouth ity of ORAL 14:20: daily. Medical Branch diphenhydrA Yes 25mg Take 25 mg [facility] MINE 5-05 by mouth ity of (BENADRYL) 14:20: as needed [place] 25 mg 02 for Medical capsule Allergies. Branch losartan-hy Yes 1{tbl} Take 1 Un óscar drochloroth 5-05 tablet by ity of iazide 14:20: mouth [place] 100-25 mg 02 daily. Medical per tablet Branch metFORMIN 0 Yes 1000mg Take 1,000 [facility] (FORTAMET) 5-05 mg by ity of 1,000 mg 24 14:20: mouth 2 J[place] as hr tablet 02 (two) Medical times Branch daily with meals. carvedilol 2018- Yes 25mg Take 25 mg U nivers (COREG) 25 5-05 by mouth 2 ity of mg tablet 14:20: (two) [place] 02 times Medical daily with Branch meals. lovastatin 2019 Yes 20mg Take 20 mg U nivers (MEVACOR) 5-05 by mouth ity of 20 mg 14:20: at [place] tablet 02 bedtime. Medical Branch DINA 2019- Yes 81mg Take 81 mg Univer s ASPIRIN 5-05 by mouth ity of ORAL 14:20: daily. [place] [id number] Medical Branch cloniDINE 2019- Yes .2mg Take 0.2 Univ ers (CATAPRES) 5-05 mg by ity of 0.2 mg 14:20: mouth 2 [place] tablet 02 (two) Medical times Branch daily. diphenhydrA 2019 Yes 25mg Take 25 mg [facility] MINE 5-05 by mouth ity of (BENADRYL) 14:20: as needed [place] 25 mg 02 for Medical capsule Allergies. Branch lisinopril- Yes 2{tbl} Take 2 Un óscar hydrochloro 5-05 tablets by it y of thiazide 14:20: mouth [place] (PRINZIDE,Z 02 daily. Medica l ESTORETIC) Branch 20-12.5 mg per tablet losartan-hy Yes 1{tbl} Take 1 Un óscar drochloroth 5-05 tablet by ity of iazide 14:20: mouth [place] 100-25 mg 02 daily. Medical per tablet Branch meloxicam Yes 15mg Take 15 mg Un óscar 15 mg 5-05 by mouth ity of tablet 14:20: daily. [place] [address] Medical Branch loratadine Yes 10mg Take 10 mg U nivers 10 mg 5-05 by mouth ity of tablet 14:20: daily. Medical Branch carvedilol Yes 25mg Take 25 mg U nivers (COREG) 25 5-05 by mouth 2 ity of mg tablet 14:20: (two) [place] [id number] times Medical daily with Branch meals. Immunizations Ordered Filled Immunization Date Status Comments [facility] e Immunization Name Name SARS-COV-2 COVID-19 2021-09-08 Completed Unive rsity of MODERNA VACCINE 00:00:00 [facility] [place] [facility] SARS-COV-2 COVID-19 2021-09-08 Completed Unive rsity of MODERNA VACCINE 00:00:00 [facility] [place] [facility] SARS-COV-2 COVID-19 2021-09-08 Completed Unive rsity of MODERNA VACCINE 00:00:00 [facility] [place] [facility] Moderna COVID-19 2020-11-27 Completed Vaccine 00:00:00 Moderna COVID-19 2020-11-27 Completed Vaccine 00:00:00 Moderna COVID-19 2020-11-27 Completed Vaccine 00:00:00 SARS-COV-2 COVID-19 2020-11-27 Completed Unive rsity of MODERNA VACCINE 00:00:00 [facility] [place] [facility] SARS-COV-2 COVID-19 2020-11-27 Completed Unive rsity of MODERNA VACCINE 00:00:00 [facility] SARS-COV-2 COVID-19 2020-11-27 Completed Unive rsity of MODERNA VACCINE 00:00:00 [facility] Moderna COVID-19 2020-10-29 Completed Vaccine 00:00:00 Moderna COVID-19 2020-10-29 Completed Vaccine 00:00:00 Moderna COVID-19 2020-10-29 Completed Vaccine 00:00:00 SARS-COV-2 COVID-19 2020-10-29 Completed Unive rsity of MODERNA VACCINE 00:00:00 [facility] SARS-COV-2 COVID-19 2020-10-29 Completed Unive rsity of MODERNA VACCINE 00:00:00 [facility] SARS-COV-2 COVID-19 2020-10-29 Completed Unive rsity of MODERNA VACCINE 00:00:00 [facility] Pneumococcal 2020-08-09 Completed University o f Polysaccharide, 00:00:00 [facility] PPSV[facility] (PNEUMOVAX[facility] Branch Pneumococcal 2020-08-09 Completed University o f Polysaccharide, 00:00:00 [facility] PPSV23 (PNEUMOVAX) Branch Pneumococcal 2020-08-09 Completed University o f Polysaccharide, 00:00:00 [facility] PPSV23 (PNEUMOVAX) Branch Influenza Virus 2020-08-08 Completed Universit y of Vaccine Quad IM 3+ 00:00:00 [facility] Influenza Virus 2020-08-08 Completed Universit y of Vaccine Quad IM 3+ 00:00:00 [facility] Influenza Virus 2020-08-08 Completed Universit y of Vaccine Quad IM 3+ 00:00:00 [facility] Branch Vital Signs Vital Name Observation Time Observation Value Comments Source Systolic blood 2022-05-14 16:58:00 171 mm[Hg] Univer [facility]ity of [facility] Diastolic blood 2022-05-14 16:58:00 75 mm[Hg] Unive rsity of [facility] Heart rate 2022-05-14 16:50:00 50 /min [facility] Respiratory rate 2022-05-14 16:50:00 23 /min [facility] Oxygen saturation in 2022-05-14 16:50:00 99 /min University of Arterial blood by [place] [facility] [facility] Pulse oximetry Branch Body temperature 2022-05-14 16:13:00 36.56 Radha [facility] Body height 2022-05-14 15:20:00 167.6 cm [facility] Body weight 2022-05-14 15:20:00 109.3 kg [facility] BMI 2022-05-14 15:20:00 38.89 kg/m2 [facility] Body height 2022-05-14 15:20:00 167.6 cm [facility] Body weight 2022-05-14 15:20:00 109.3 kg [facility] BMI 2022-05-14 15:20:00 38.89 kg/m2 [facility] Systolic blood 2022-05-14 14:40:00 180 mm[Hg] [facility] Diastolic blood 2022-05-14 14:40:00 63 mm[Hg] [facility] Heart rate 2022-05-14 14:35:00 53 /min [facility] Body temperature 2022-05-14 14:35:00 36.28 Radha [facility] Respiratory rate 2022-05-14 14:35:00 18 /min [facility] Oxygen saturation in 2022-05-14 14:35:00 100 /min University of Arterial blood by [email or web address] meghana Pulse oximetry Branch Systolic blood 2022-02-01 17:58:00 122 mm[Hg] Univer [facility]ity [facility] Diastolic blood 2022-02-01 17:58:00 75 mm[Hg] [facility]ive [facility] of [facility] Heart rate 2022-02-01 17:58:00 61 /min [facility] Respiratory rate 2022-02-01 17:58:00 16 /min [facility] Oxygen saturation in 2022-02-01 17:58:00 99 /min [facility] Ar[place]ial blood by [place] [facility] [facility] Pulse oximetry Branch Body temperature 2022-02-01 15:48:00 37.33 Radha [facility] Body height 2022-02-01 15:48:00 167.6 cm [facility] Body weight 2022-02-01 15:48:00 109.317 kg [facility] BMI 2022-02-01 15:48:00 38.90 kg/m2 [facility] Systolic blood 2021-03-02 23:37:00 155 mm[Hg] [facility]iver [facility] Diastolic blood 2021-03-02 23:37:00 89 mm[Hg] Unive rs[facility] of [facility] Heart rate 2021-03-02 23:37:00 64 /min [facility] Respiratory rate 2021-03-02 23:37:00 18 /min [facility] Oxygen saturation in 2021-03-02 23:37:00 95 /min [facility] of Arterial blood by [facility] meghana Pulse oximetry Branch Body temperature 2021-03-02 23:33:00 37.17 Radha [facility] Body height 2021-03-02 23:33:00 167.6 cm [facility] Body weight 2021-03-02 23:33:00 112.946 kg [facility] BMI 2021-03-02 23:33:00 40.19 kg/m2 [facility] BP Systolic 2022-08-11 11:33:00 228 mm[Hg] BP Diastolic 2022-08-11 11:33:00 108 mm[Hg] Weight Measured 2022-08-11 11:33:00 235.80 pounds Height Measured 2022-08-11 11:33:00 65.20 inches Body Temperature 2022-08-11 11:33:00 98.40 degrees Heart Rate 2022-08-11 11:33:00 79.00 /min Respiratory Rate 2022-08-11 11:33:00 BP Systolic 2022-07-09 16:54:00 179 mm[Hg] BP Diastolic 2022-07-09 16:54:00 80 mm[Hg] Weight Measured 2022-07-09 16:54:00 236.80 pounds Height Measured 2022-07-09 16:54:00 65.20 inches Body Temperature 2022-07-09 16:54:00 98.30 degrees Heart Rate 2022-07-09 16:54:00 59.00 /min Respiratory Rate 2022-07-09 16:54:00 BP Systolic 2021-12-11 11:21:00 160 mm[Hg] BP Diastolic 2021-12-11 11:21:00 82 mm[Hg] Weight Measured 2021-12-11 11:21:00 240.00 pounds Height Measured 2021-12-11 11:21:00 65.20 inches Body Temperature 2021-12-11 11:21:00 97.20 degrees Heart Rate 2021-12-11 11:21:00 56.00 /min Respiratory Rate 2021-12-11 11:21:00 BP Systolic 2021-09-19 16:32:00 BP Diastolic 2021-09-19 16:32:00 Weight Measured 2021-09-19 16:32:00 241.00 pounds Height Measured 2021-09-19 16:32:00 65.20 inches Body Temperature 2021-09-19 16:32:00 Heart Rate 2021-09-19 16:32:00 Respiratory Rate 2021-09-19 16:32:00 BP Systolic 2021-05-21 17:23:00 147 mm[Hg] BP Diastolic 2021-05-21 17:23:00 71 mm[Hg] Weight Measured 2021-05-21 17:23:00 250.40 pounds Height Measured 2021-05-21 17:23:00 65.20 inches Body Temperature 2021-05-21 17:23:00 97.90 degrees Heart Rate 2021-05-21 17:23:00 58.00 /min Respiratory Rate 2021-05-21 17:23:00 16.00 /min BP Systolic 2021-01-21 09:36:00 136 mm[Hg] BP Diastolic 2021-01-21 09:36:00 83 mm[Hg] Weight Measured 2021-01-21 09:36:00 249.80 pounds Height Measured 2021-01-21 09:36:00 65.20 inches Body Temperature 2021-01-21 09:36:00 98.20 degrees Heart Rate 2021-01-21 09:36:00 62.00 /min Respiratory Rate 2021-01-21 09:36:00 BP Systolic 2020-10-23 11:17:00 BP Diastolic 2020-10-23 11:17:00 Weight Measured 2020-10-23 11:17:00 250.00 pounds Height Measured 2020-10-23 11:17:00 Body Temperature 2020-10-23 11:17:00 Heart Rate 2020-10-23 11:17:00 Respiratory Rate 2020-10-23 11:17:00 BP Systolic 2020-04-18 09:03:00 BP Diastolic 2020-04-18 09:03:00 Weight Measured 2020-04-18 09:03:00 245.00 pounds Height Measured 2020-04-18 09:03:00 67.00 inches Body Temperature 2020-04-18 09:03:00 Heart Rate 2020-04-18 09:03:00 Respiratory Rate 2020-04-18 09:03:00 BP Systolic 2020-01-18 08:30:00 138 mm[Hg] BP Diastolic 2020-01-18 08:30:00 75 mm[Hg] Weight Measured 2020-01-18 08:30:00 245.50 pounds Height Measured 2020-01-18 08:30:00 67.00 inches Body Temperature 2020-01-18 08:30:00 97.90 degrees Heart Rate 2020-01-18 08:30:00 56.00 /min Respiratory Rate 2020-01-18 08:30:00 BP Systolic 2019-12-15 10:14:00 BP Diastolic 2019-12-15 10:14:00 Weight Measured 2019-12-15 10:14:00 237.00 pounds Height Measured 2019-12-15 10:14:00 67.00 inches Body Temperature 2019-12-15 10:14:00 Heart Rate 2019-12-15 10:14:00 Respiratory Rate 2019-12-15 10:14:00 BP Systolic 2019-10-19 09:26:00 154 mm[Hg] BP Diastolic 2019-10-19 09:26:00 83 mm[Hg] Weight Measured 2019-10-19 09:26:00 237.00 pounds Height Measured 2019-10-19 09:26:00 67.00 inches Body Temperature 2019-10-19 09:26:00 97.70 degrees Heart Rate 2019-10-19 09:26:00 54.00 /min Respiratory Rate 2019-10-19 09:26:00 Procedures Procedure Date / Time Performing Clinician Source Performed COLONOSCOPY [facility]ENDO[facility] 2022-05-14 [facility]22-05-14 15:39[facility] 2022-05-14 15:37:00 Monalisa Boudreaux [facility] POCT GLUCOSE(AGE 2022-05-14 14:56:00 [facility] >30DAYS) [facility] POCT GLUCOSE(AGE 2022-05-14 14:56[facility] POCT GLUCOSE (AUTOMATED) 2022-05-14 14:54:00 Monalisa Boudreaux [facility] POCT GLUCOSE (AUTOMATED) 2022-05-14 14:54:00 Monalisa Boudreaux [facility] PATIENT QUESTIONNAIRE 2022-05-14 05:01:00 Doctor Unassigned, No [facility] Name Medical Branch EXTERNAL PROVIDER 2022-03-11 05:01:00 [facility] EXTERNAL PROVIDER 2022-03-11 05:01:00 [facility] BI SCREENING 2022-02-12 13:53:00 Requisition, Paper [facility] TOMOSYNTHESIS BILATERAL [facility] ASSIGNMENT OF BENEFITS 2022-02-12 13:26:09 Doctor Unassigned, No [facility] Name [facility] URINALYSIS 2022-02-01 16:02:00 Iliana Chavez [facility] LIPASE 2022-02-01 15:54:00 Iliana Chavez [facility] MAGNESIUM 2022-02-01 15:54:00 Iliana Chavez [facility] TROPONIN I 2022-02-01 15:54:00 Iliana Chavez [facility] COMP. METABOLIC PANEL 2022-02-01 15:54:00 Iliana Chavez [facility] ([id number]) [facility] CBC WITH DIFF 2022-02-01 15:54:00 Iliana Chavez [facility] CONSENT/REFUSAL FOR 2022-02-01 15:41:34 Doctor Unassigned, No [facility] DIAGNOSIS AND TREATMENT [facility] DEXA AXIAL (HIP AND 2022-01-09 16:06:34 Requisition, Paper [facility] SPINE) Medical [place] ASSIGNMENT OF BENEFITS 2021-03-02 23:26:28 Doctor Unassigned, No [facility] Plan of Care Planned Activity Planned Date Details Comments Source Goal Plan of Care Note [code = 45163-8] Goal Plan of Care Note [code = 07845-3] Goal Plan of Care Note [code = 39195-5] Goal Plan of Care Note [code = 96870-8] Goal Plan of Care Note [code = 75500-7] Goal Plan of Care Note [code = 55072-1] Goal Plan of Care Note [code = 01162-6] Goal Plan of Care Note [code = 23743-9] Goal Plan of Care Note [code = 72801-3] Goal Plan of Care Note [code = 72208-4] Goal Plan of Care Note [code = 69688-1] Goal Plan of Care Note [code = 49338-3] Goal Plan of Care Note [code = 63101-9] Goal Plan of Care Note [code = 49680-6] Goal Plan of Care Note [code = 15006-3] Goal Plan of Care Note [code = 24608-7] Goal Plan of Care Note [code = 02592-3] Goal Plan of Care Note [code = 19413-8] Goal Plan of Care Note [code = 93204-9] Goal Plan of Care Note [code = 74787-9] Goal Plan of Care Note [code = 77483-8] Goal Plan of Care Note [code = 03224-6] Goal Plan of Care Note [code = 11588-5] Goal Plan of Care Note [code = 02925-6] Goal Plan of Care Note [code = 87173-7] Goal Plan of Care Note [code = 40003-7] Goal Plan of Care Note [code = 29507-3] Goal Plan of Care Note [code = 84839-1] Goal Plan of Care Note [code = 43259-1] Goal Plan of Care Note [code = 79349-1] Goal Plan of Care Note [code = 45651-9] Goal Plan of Care Note [code = 11330-7] Goal Plan of Care Note [code = 79391-0] Goal Plan of Care Note [code = 23697-2] Goal Plan of Care Note [code = 71365-5] Goal Plan of Care Note [code = 88660-5] Goal Plan of Care Note [code = 36648-6] Goal Plan of Care Note [code = 54972-3] Goal Plan of Care Note [code = 12821-6] Goal Plan of Care Note [code = 19354-1] Goal Plan of Care Note [code = 56143-5] Goal Plan of Care Note [code = 32563-4] Goal Plan of Care Note [code = 17698-4] Goal Plan of Care Note [code = 09541-4] Goal Plan of Care Note [code = 35161-8] Goal Plan of Care Note [code = 81567-2] Goal Plan of Care Note [code = 65889-1] Goal Plan of Care Note [code = 60529-2] Goal Plan of Care Note [code = 20914-3] Goal Plan of Care Note [code = 42304-9] Goal Plan of Care Note [code = 94266-2] Goal Plan of Care Note [code = 34832-4] Goal Plan of Care Note [code = 60496-3] Goal Plan of Care Note [code = 24108-4] Goal Plan of Care Note [code = 96040-2] Goal Plan of Care Note [code = 02374-0] Goal Plan of Care Note [code = 02451-8] Goal Plan of Care Note [code = 36820-0] Goal Plan of Care Note [code = 88577-3] Goal Plan of Care Note [code = 37739-2] Goal Plan of Care Note [code = 67997-8] Goal Plan of Care Note [code = 43882-5] Goal Plan of Care Note [code = 57732-2] Goal Plan of Care Note [code = 07829-3] Goal Plan of Care Note [code = 58890-1] Goal Plan of Care Note [code = 44970-9] Goal Plan of Care Note [code = 97204-7] Goal Plan of Care Note [code = 29046-4] Goal Plan of Care Note [code = 32807-0] Goal Plan of Care Note [code = 87087-3] Goal Plan of Care Note [code = 89377-7] Goal Plan of Care Note [code = 89708-5] Goal Plan of Care Note [code = 47921-7] Encounters Start End Encounter Admission Attending Care Care Encounter Source Date/Time Date/Time Type Type Clinicians Facility Department ID 2022-08-11 2022-08-11 Outpatient [facility] [id number] Romaine 11:24:30 11:24:30 1121 F Chris 2022-08-11 2022-08-11 Outpatient [id number] 00:00:00 00:00:00 Visit 19bb-4201 9bb-4201-a -n411-322 671-268a4b [id number] b2b9c6 2022-07-09 2022-07-09 Outpatient [facility] [id number] Romaine 16:53:46 16:53:46 1019 F Chris 2022-07-09 2022-07-09 Outpatient [id number] 00:00:00 00:00:00 Visit 53i3-01hb 3a3-61sz-0 -8mo9-l93 aa3-c45a4e m3x630vox 955deb 2022-05-14 2022-05-14 Outpatient Kaykay [facility] [id number] Univers 09:17:00 12:07:00 MONALISA Mccoy f [facility] 2022-05-14 2022-05-14 [facility] [id number] [facility] 09:17:00 12:07:00 Encounter Monalisa mccoy [place] 350.1.13.10 [place] [id number] [facility] 071 Branch 2022-05-14 2022-05-14 Surgery [facility] 1.2.840.114 [id number] [facility] 10:17:00 10:59:00 eMonalisa [place] 350.1.13.10 [place] [id number] [facility] 020 Branch 2022-05-14 2022-05-14 Orders Doctor ROBERTO 1.2.840.114 [id number] Univers 00:00:00 00:00:00 Only Unassigned, TANYA 350.1.13.10 ity of [facility] 4.2.7.2.686 Jf as [id number] [facility] 009 Branch 2022-04-22 2022-04-22 Outpatient [id number] 00:00:00 00:00:00 Visit 7409-4f2c 409-4f2c-a -p23j-ov3 11f-ad4d66 [id number] 7u408p 2022-02-12 2022-02-12 Hospital Radiology [facility] 1.2.840.114 [id number] [facility] ::24 23:59:00 Encounter [place] 350.1.13.10 [place] [id number] [facility] 800 Branch 2022-02-12 2022-02-12 Outpatient R RADIOLOGY [facility] [id number] [facility] 08:26:24 23:59:00 ity of [facility] 2022-02-12 2022-02-12 Orders Doctor ROBERTO 1.2.840.114 [id number] Univers 00:00:00 00:00:00 Only Unassigned, TANYA 350.1.13.10 ity of [place] [facility] 4.2.7.2.686 Jf as [id number] [facility] 009 [place] 2022-02-01 2022-02-01 Emergency X KATHY [facility] ERT [id number] Univers 10:43:00 13:04:00 ILIANA javier [facility] 2022-02-01 2022-02-01 Emergency Kathy [facility] 1.2.840.114 [id number] Univers 10:43:00 13:04:00 Iliana HERNANDEZ 350.1.13.10 it[place] of [place] 4.2.7.2.686 [facility] [id number] [facility] 084 Branch 2022-01-09 2022-01-09 Outpatient R MICHAEL, [facility] [id number] Univers 10:37:05 23:59:00 ATTENDING javier [facility] 2022-01-09 2022-01-09 [facility], [facility] [id number] [id number] Univers 10:37:05 23:59:00 Encounter Attending MARY 350.1.13.10 itarnol [facility] 4.2.7.2.686 [facility] [id number] [facility] 800 Branch 2021-03-02 2021-03-02 Urgent Provider, [facility] 1.2.840.114 [id number] Univers 18:28:27 19:11:42 Care [facility] 350.1.13.10 ity of [place] 4.2.7.2.686 Jf as Professio [id number] [address] Office [address] 2021-03-02 2021-03-02 Outpatient R JACQUELINE [facility] [id number] Univers 18:00:00 18:00:00 [place] herrera [facility] 2021-03-02 2021-03-02 Orders Doctor FELISA 1.2.840.114 [id number] Univers 00:00:00 00:00:00 Only Unassigned, TANYA 350.1.13.10 ity of [place] [facility] 4.2.7.2.686 Jf as [id number] [address] Results Test Description Test Time Test Comments Results Result Comments Source POCT GLUCOSE (AUTOMATED) 2022-05-14 14:58:51 Test Item Value Reference Range Interpretation Comme nts POCT GLU (test code = 6999404802) 162 mg/dL 70-110 H Lab Interpretation (test code = 90561-5) Abnormal [facility] GLUCOSE (AUTOMATED)2022-05-14 14:58:51 Test Item Value Reference Range Interpretation Comments POCT GLU (test code = 2105491413) 162 mg/dL 70-110 H Lab Interpretation (test code = Abnormal 47887-7) [facility] [id number] 14:56:00 Test Item Value Reference Range Interpretation Comments POCT Glu (age>30days) (test code = 162 mg/dL 70-110 A 3342) Lab Interpretation (test code = Abnormal 50148-5) [facility] [id number] 14:56:00 Test Item Value Reference Range Interpretation Comments POCT Glu (age>30days) (test code = 162 mg/dL 70-110 A 3342) Lab Interpretation (test code = Abnormal 65686-3) [id number] 16:31:11 Test Item Value Reference Interpretation Comments Range TROPONIN I (test 0.010 ng/mL See_Comment [Automated code = 8037447995) message] The system which generated this result transmitted reference range : <=0.034. The reference range was not used to interpret this result as normal/abnormal . SONIYA (test code = Reference (Normal) SONIYA) Range (defined by the 99th percentile reference limit): <= 0.034 ng/mL Note: Cardiac troponin begins to rise 3-4 hours after the onset of ischemia. Repeat in 4-6 hours if the sample was drawn within 3-4 hours of the onset of the symptom and found normal. Diagnosis of myocardial injury is made with acute changes in cTn concentrations with at least one serial sample above the 99th percentile upper reference limit (URL), taken together with the patient's clinical presentation. Biotin has been reported to cause a negative bias, interpret results relative to patient's use of biotin. Lab Interpretation Normal (test code = 48885-4) [facility] 16:19:48 Test Item Value Reference Range Interpretation Comments MAGNESIUM (test code = 5892957958) 1.8 mg/dL 1.7-2.4 Lab Interpretation (test code = Normal 61935-9) [facility]. METABOLIC PANEL (79131)2022-02-01 16:19:28 Test Item Value Reference Range Interpretation Comments NA (test code = 138 mmol/L 135-145 8420057980) K (test code = 3.5 mmol/L 3.5-5.0 1859221396) CL (test code = 98 mmol/L 98-108 6354946645) CO2 TOTAL (test code = 30 mmol/L 23-31 1835024541) AGAP (test code = 2-16 9468931752) BUN (test code = 30 mg/dL 7-23 H 0639200896) GLUCOSE (test code = 189 mg/dL 70-110 H 7339779539) CREATININE (test code = 2.03 mg/dL 0.50-1.04 H 6058676615) TOTAL BILI (test code = 1.1 mg/dL 0.1-1.0 9164654077) CALCIUM (test code = 9.4 mg/dL 8.6-10.6 9495279196) T PROTEIN (test code = 7.2 g/dL 6.3-8.2 4673928766) ALBUMIN (test code = 4.2 g/dL 3.5-5.0 8519870799) ALK PHOS (test code = 85 U/L 34-122 1887060927) ALTv (test code = 37 U/L 5-35 H 1742-6) AST(SGOT) (test code = 29 U/L 13-40 6649205717) eGFR (test code = mL/min/1.73m2 6282926118) SONIYA (test code = SONIYA) Association of Glomerular Filtration Rate (GFR) and Staging of Kidney Disease* + --+ --+ ------+| GFR (mL/min/1.73 m2) ?| With Kidney Damage ?| ?Without Kidney Damage+ --------+ --------+ +| ?>90 ?| ?Stage one ?| ? Normal ?+ ---+ ---+ -------+| ?60-89 ?| ?Stage two ?| ? Decreased GFR ? + --+ --+ ------+| ?30-59 ?| ?Stage three ?| ? Stage three ? + --+ --+ ------+| ?15-29 ?| ?Stage four ? | ? Stage four ?+ ---+ ---+ -------+| ?<15 (or dialysis) ? ?| ?Stage five ? | ? Stage five ?+ ---+ ---+ -------+ *Each stage assumes the associated GFR level has been in effect for at least three months. ?Stages 1 to 5, with or without kidney disease, indicate chronic kidney disease. Notes: Determination of stages one and two (with eGFR >59mL/min/1.73 m2) requires estimation of kidney damage for at least three months as defined by structural or functional abnormalities of the kidney, manifested by either:Pathological abnormalities or Markers of kidney damage (including abnormalities in the composition of the blood or urine or abnormalities in imaging tests). Lab Interpretation Abnormal (test code = 74790-7) [facility] 16:19:08 Test Item Value Reference Range Interpretation Comments LIPASE (test code = 3772504391) 200 U/L 0-220 Lab Interpretation (test code = Normal 17364-4) [facility] WITH [id number] 16:04:08 Test Item Value Reference Range Interpretation Comments WBC (test code = See_Comment [Automated 8403-2) message] The sy stem which generated this result transmitted reference range : 4.30 - 11.10 10*3/?L. The reference range was not used to interpret this result as normal/abnormal . RBC (test code = See_Comment [Automated 443-8) message] The sy stem which generated this result transmitted reference range : 3.93 - 5.25 10*6/?L. The reference range was not used to interpret this result as normal/abnormal . HGB (test code = 12.8 g/dL 11.6-15.0 718-7) HCT (test code = 37.1 % 35.7-45.2 4544-3) MCV (test code = 81.0 fL 80.6-95.5 787-2) MCH (test code = 27.9 pg 25.9-32.8 785-6) MCHC (test code = 34.5 g/dL 31.6-35.1 786-4) RDW-SD (test code = 41.2 fL 39.0-49.9 93124-6) RDW-CV (test code = 14.2 % 12.0-15.5 788-0) PLT (test code = See_Comment [Automated 777-3) message] The sy stem which generated this result transmitted reference range : 166 - 358 10*3/ ?L. The reference r bridget was not used to interpret this result as normal/abnormal . MPV (test code = 9.1 fL 9.5-12.9 L 96245-2) NRBC/100 WBC (test See_Comment [Automat ed code = 9395568804) message] The system which generated this result transmitted reference range : 0.0 - 10.0 /100 WBCs. The refer ence range was not u sed to interpret th is result as normal/abnormal . NRBC x10^3 (test code <0.01 See_Comment [Auto mated = 9221460642) message] The s ystem which generated this result transmitted reference range : 10*3/?L. The reference range was not used to interpret this result as normal/abnormal . GRAN MAT (NEUT) % 60.5 % (test code = 770-8) IMM GRAN % (test code 0.40 % = 3733237771) LYMPH % (test code = 31.2 % 736-9) MONO % (test code = 4.8 % 5905-5) EOS % (test code = 2.7 % 713-8) BASO % (test code = 0.4 % 706-2) GRAN MAT x10^3(ANC) 4.30 10*3/uL 1.88-7.09 (test code = 2437314207) IMM GRAN x10^3 (test 0.03 10*3/uL 0.00-0.06 code = 7427037591) LYMPH x10^3 (test code 2.22 10*3/uL 1.32-3.29 = 731-0) MONO x10^3 (test code 0.34 10*3/uL 0.33-0.92 = 742-7) EOS x10^3 (test code = 0.19 10*3/uL 0.03-0.39 711-2) BASO x10^3 (test code 0.03 10*3/uL 0.01-0.07 = 704-7) Lab Interpretation Abnormal (test code = 98475-3) [facility] [id number] 06:39:55 Test Item Value Reference Range Interpretation Comments HEMOGLOBIN A1c (test 9.6 % 4.2-5.6 H AMERIC AN DIABETES code = 47069) ASSOCIATION IDELINES FOR HGB A1C: PREDIABETES/INC REASED RISK . . . . . . . 5.7 -6.4% DIAGNOSIS OF DI ABETES . . . . . . . . . >=6 .5% WITH CONFIRMATION OR APPROPRIATE SYMPTOMS NOTE: ASSAY MAY BE AFFECTED BY HEMOGLOBINOPATH IES (SICKLE CELL ANEMIA, S- C DISEASE, OTHERS) OR ANGELINA FICIALLY LOWERED BY DECR EASED RED CELL SURVIVAL ( HEMOLYTIC ANEMIAS, BLOOD LOSS, ETC.). CONSIDER ALTERN ATE TESTING OR LABORATORY C ONSULTATION. UNLESS OTHERWIS E INDICATED, ALL TESTING PER [facility] ATCLINICAL PATH [facility], [place] [address] [address] LABORATORY DIRE CTOR: JANEEN LINDO M.D. CLIA NUMBER [id number] [facility] [place]. [id number] HEMOGLOBIN [id number] 00:00:00 Test Item Value Reference Range Interpretation Comments HEMOGLOBIN A1c (test code = 64841) 9.6 % HEMOGLOBIN [id number] 00:00:00 Test Item Value Reference Range Interpretation Comments HEMOGLOBIN A1c (test code = 80429) 9.6 % HEMOGLOBIN [id number] 00:00:00 Test Item Value Reference Range Interpretation Comments HEMOGLOBIN A1c (test code = 96679) 9.6 % HEMOGLOBIN [id number] 00:00:00 Test Item Value Reference Range Interpretation Comments HEMOGLOBIN A1c (test code = 26104) 9.6 % HEMOGLOBIN [id number] 00:00:00 Test Item Value Reference Range Interpretation Comments HEMOGLOBIN A1c (test code = 32626) 9.6 % HEMOGLOBIN [id number] 00:00:00 Test Item Value Reference Range Interpretation Comments HEMOGLOBIN A1c (test code = 59150) 9.6 % HEMOGLOBIN [id number] 00:00:00 Test Item Value Reference Range Interpretation Comments HEMOGLOBIN A1c (test code = 58371) 9.6 % HEMOGLOBIN [id number] 00:00:00 Test Item Value Reference Range Interpretation Comments HEMOGLOBIN A1c (test code = 08659) 9.6 % HEMOGLOBIN [id number] 00:00:00 Test Item Value Reference Range Interpretation Comments HEMOGLOBIN A1c (test code = 34495) 9.6 % HEMOGLOBIN [id number] 06:06:01 Test Item Value Reference Range Interpretation Comments HEMOGLOBIN A1c (test 9.8 % 4.2-5.6 H AMERIC AN DIABETES code = 18129) ASSOCIATION IDELINES FOR HGB A1C: PREDIABETES/INC REASED RISK . . . . . . . 5.7 -6.4% DIAGNOSIS OF DI ABETES . . . . . . . . . >=6 .5% WITH CONFIRMATION OR APPROPRIATE SYMPTOMS NOTE: ASSAY MAY BE AFFECTED BY HEMOGLOBINOPATH IES (SICKLE CELL ANEMIA, S- C DISEASE, OTHERS) OR ANGELINA FICIALLY LOWERED BY DECR EASED RED CELL SURVIVAL ( HEMOLYTIC ANEMIAS, BLOOD LOSS, ETC.). CONSIDER ALTERN ATE TESTING OR LABORATORY C ONSULTATION. LIPID [id number] 04:28:41 Test Item Value Reference Range Interpretation Comments CHOLESTEROL (test 177 MG/DL <200 code = 2210) TRIGLYCERIDES (test 135 MG/DL <150 code = 2232) HDL CHOLESTEROL (test 39 MG/DL >39 L code = 2220) CALC LDL CHOL (test 113 MG/DL <100 H NOTE: C ALCULATED LDL code = 2237) IS BASED ON ARTEM-MATOS METHOD WHICHINCLUDES ADJUSTABLE TRIGLYCERIDE:VL DL CHOLESTEROL RAT IO.THIS FACTOR VARIES B Y MEASURED TRIGLY CERIDE AND NON-HDLCHOL ESTEROL CONCENTRATIONS WITH INCREASED CALCU LATED LDL SEENIN HIGH ER TRIGLYCERIDE OR LOWER NON-HDL SPECIME NS. FOR MOREINFORMATION , SEE CLIENT ANNOUNCE MENT AT [email or web address] RISK RATIO LDL/HDL 2.90 RATIO <3.22 (test code = 2238) COMPREHENSIVE METABOLIC [id number] 04:28:41 Test Item Value Reference Range Interpretation Comments GLUCOSE (test code = 163 MG/DL 70-99 H 2216) BUN (test code = 24 MG/DL 8-23 H 2207) CREATININE (test 1.84 MG/DL 0.60-1.30 H EFFECTIVE code = 2214) 09/02/2021, [facility] HAS IMPLEMENTED THE NKF-ASN RECOMME NDED KD-EPI EGF R REFIT CALCULATI ON THAT DOES NOT I NCLUDE A COEFFICIENT FORRACE. FOR MO RE INFORMATION, SE E ANNOUNCEMENT [email or web address] eGFR (2020 CKD-EPI) 30 >60 L (test code = 63293) ML/MIN/1.73 CALC BUN/CREAT (test 13 RATIO 6-28 code = 2235) SODIUM (test code = 144 MEQ/L 795-785 0778) POTASSIUM (test code 3.6 MEQ/L 3.5-5.4 = 2228) CHLORIDE (test code 103 MEQ/L 95-107 = 221) CARBON DIOXIDE (test 29 MEQ/L 19-31 code = 2206) CALCIUM (test code = 9.6 MG/DL 8.5-10.5 2208) PROTEIN, TOTAL (test 7.2 G/DL 6.1-8.3 code = 222) ALBUMIN (test code = 4.2 G/DL 3.5-5.2 2200) CALC GLOBULIN (test 3.0 G/DL 1.9-3.7 code = 2240) CALC A/G RATIO (test 1.4 RATIO 1.0-2.6 code = 2234) BILIRUBIN, TOTAL 0.9 MG/DL See_Comment [Automated message] (test code = 2207) The syste m which generated this result transmitted ref erence range: <=1.2. T he reference range was not used to int erpret this result as normal/abnormal . ALKALINE PHOSPHATASE 93 U/L 40-140 (test code = 2204) AST (test code = 23 U/L 9-40 2217) ALT (test code = 30 U/L 5-40 UNLESS OTH ERWISE 2218) INDICATED, ALL TESTING PERFORM ED [facility]CLINICAL PATH [facility] [place] [address] [place] [address] [facility] DIRECTOR: JANEEN LINDO M.D. CLIA NUMBER [id number] CAP ACCREDITATION N O. [id number] HEMOGLOBIN [id number] 00:00:00 Test Item Value Reference Range Interpretation Comments HEMOGLOBIN A1c (test code = 45463) 9.8 % HEMOGLOBIN [id number] 00:00:00 Test Item Value Reference Range Interpretation Comments HEMOGLOBIN A1c (test code = 79950) 9.8 % HEMOGLOBIN [id number] 00:00:00 Test Item Value Reference Range Interpretation Comments HEMOGLOBIN A1c (test code = 15757) 9.8 % LIPID [id number] 00:00:00 Test Item Value Reference Range Interpretation Comments CHOLESTEROL (test code = 2210) 177 MG/DL TRIGLYCERIDES (test code = 2232) 135 MG/DL HDL CHOLESTEROL (test code = 2220) 39 MG/DL CALC LDL CHOL (test code = 2237) 113 MG/DL RISK RATIO LDL/HDL (test code = 2.90 RATIO 2238) LIPID [id number] 00:00:00 Test Item Value Reference Range Interpretation Comments CHOLESTEROL (test code = 2210) 177 MG/DL TRIGLYCERIDES (test code = 2232) 135 MG/DL HDL CHOLESTEROL (test code = 2220) 39 MG/DL CALC LDL CHOL (test code = 2237) 113 MG/DL RISK RATIO LDL/HDL (test code = 2.90 RATIO 2238) COMPREHENSIVE METABOLIC [id number] 00:00:00 Test Item Value Reference Range Interpretation Comments GLUCOSE (test code = 2217) 163 MG/DL BUN (test code = 2208) 24 MG/DL CREATININE (test code = 2214) 1.84 MG/DL eGFR (2020 CKD-EPI) (test code 30 ML/MIN/1.73 = 92402) CALC BUN/CREAT (test code = 13 RATIO 2235) SODIUM (test code = 2231) 144 MEQ/L POTASSIUM (test code = 2228) 3.6 MEQ/L CHLORIDE (test code = 2215) 103 MEQ/L CARBON DIOXIDE (test code = 29 MEQ/L 2205) CALCIUM (test code = 2209) 9.6 MG/DL PROTEIN, TOTAL (test code = 7.2 G/DL 2228) ALBUMIN (test code = 220) 4.2 G/DL CALC GLOBULIN (test code = 3.0 G/DL 2239) CALC A/G RATIO (test code = 1.4 RATIO 2234) BILIRUBIN, TOTAL (test code = 0.9 MG/DL 2206) ALKALINE PHOSPHATASE (test 93 U/L code = 2204) AST (test code = 2218) 23 U/L ALT (test code = 2219) 30 U/L COMPREHENSIVE METABOLIC [id number] 00:00:00 Test Item Value Reference Range Interpretation Comments GLUCOSE (test code = 2217) 163 MG/DL BUN (test code = 2208) 24 MG/DL CREATININE (test code = 2214) 1.84 MG/DL eGFR (2020 CKD-EPI) (test code 30 ML/MIN/1.73 = 77716) CALC BUN/CREAT (test code = 13 RATIO 2235) SODIUM (test code = 2231) 144 MEQ/L POTASSIUM (test code = 2228) 3.6 MEQ/L CHLORIDE (test code = 2215) 103 MEQ/L CARBON DIOXIDE (test code = 29 MEQ/L 2205) CALCIUM (test code = 2209) 9.6 MG/DL PROTEIN, TOTAL (test code = 7.2 G/DL 2228) ALBUMIN (test code = 2201) 4.2 G/DL CALC GLOBULIN (test code = 3.0 G/DL 2239) CALC A/G RATIO (test code = 1.4 RATIO 2233) BILIRUBIN, TOTAL (test code = 0.9 MG/DL 2206) ALKALINE PHOSPHATASE (test 93 U/L code = 2204) AST (test code = 2218) 23 U/L ALT (test code = 2219) 30 U/L HEMOGLOBIN [id number] 00:00:00 Test Item Value Reference Range Interpretation Comments HEMOGLOBIN A1c (test code = 52755) 9.8 % HEMOGLOBIN [id number] 00:00:00 Test Item Value Reference Range Interpretation Comments HEMOGLOBIN A1c (test code = 30483) 9.8 % HEMOGLOBIN [id number] 00:00:00 Test Item Value Reference Range Interpretation Comments HEMOGLOBIN A1c (test code = 01801) 9.8 % LIPID [id number] 00:00:00 Test Item Value Reference Range Interpretation Comments CHOLESTEROL (test code = 2210) 177 MG/DL TRIGLYCERIDES (test code = 2232) 135 MG/DL HDL CHOLESTEROL (test code = 2220) 39 MG/DL CALC LDL CHOL (test code = 2237) 113 MG/DL RISK RATIO LDL/HDL (test code = 2.90 RATIO 2238) LIPID [id number] 00:00:00 Test Item Value Reference Range Interpretation Comments CHOLESTEROL (test code = 2210) 177 MG/DL TRIGLYCERIDES (test code = 2232) 135 MG/DL HDL CHOLESTEROL (test code = 2220) 39 MG/DL CALC LDL CHOL (test code = 2237) 113 MG/DL RISK RATIO LDL/HDL (test code = 2.90 RATIO 2238) COMPREHENSIVE METABOLIC [id number] 00:00:00 Test Item Value Reference Range Interpretation Comments GLUCOSE (test code = 2217) 163 MG/DL BUN (test code = 2208) 24 MG/DL CREATININE (test code = 2214) 1.84 MG/DL eGFR (2020 CKD-EPI) (test code 30 ML/MIN/1.73 = 94824) CALC BUN/CREAT (test code = 13 RATIO 2235) SODIUM (test code = 2231) 144 MEQ/L POTASSIUM (test code = 2228) 3.6 MEQ/L CHLORIDE (test code = 2215) 103 MEQ/L CARBON DIOXIDE (test code = 29 MEQ/L 2205) CALCIUM (test code = 2209) 9.6 MG/DL PROTEIN, TOTAL (test code = 7.2 G/DL 2228) ALBUMIN (test code = 2201) 4.2 G/DL CALC GLOBULIN (test code = 3.0 G/DL 2239) CALC A/G RATIO (test code = 1.4 RATIO 4) BILIRUBIN, TOTAL (test code = 0.9 MG/DL 2206) ALKALINE PHOSPHATASE (test 93 U/L code = 2204) AST (test code = 2218) 23 U/L ALT (test code = 2219) 30 U/L COMPREHENSIVE METABOLIC [id number] 00:00:00 Test Item Value Reference Range Interpretation Comments GLUCOSE (test code = 2217) 163 MG/DL BUN (test code = 2208) 24 MG/DL CREATININE (test code = 2214) 1.84 MG/DL eGFR (2020 CKD-EPI) (test code 30 ML/MIN/1.73 = 74930) CALC BUN/CREAT (test code = 13 RATIO 2235) SODIUM (test code = 2231) 144 MEQ/L POTASSIUM (test code = 2228) 3.6 MEQ/L CHLORIDE (test code = 2215) 103 MEQ/L CARBON DIOXIDE (test code = 29 MEQ/L 2206) CALCIUM (test code = 2209) 9.6 MG/DL PROTEIN, TOTAL (test code = 7.2 G/DL 2228) ALBUMIN (test code = 2201) 4.2 G/DL CALC GLOBULIN (test code = 3.0 G/DL 0) CALC A/G RATIO (test code = 1.4 RATIO 2234) BILIRUBIN, TOTAL (test code = 0.9 MG/DL 2206) ALKALINE PHOSPHATASE (test 93 U/L code = 2204) AST (test code = 2218) 23 U/L ALT (test code = 2219) 30 U/L HEMOGLOBIN [id number] 00:00:00 Test Item Value Reference Range Interpretation Comments HEMOGLOBIN A1c (test code = 20985) 9.8 % HEMOGLOBIN [id number] 00:00:00 Test Item Value Reference Range Interpretation Comments HEMOGLOBIN A1c (test code = 82419) 9.8 % HEMOGLOBIN [id number] 00:00:00 Test Item Value Reference Range Interpretation Comments HEMOGLOBIN A1c (test code = 85928) 9.8 % LIPID [id number] 00:00:00 Test Item Value Reference Range Interpretation Comments CHOLESTEROL (test code = 2210) 177 MG/DL TRIGLYCERIDES (test code = 2232) 135 MG/DL HDL CHOLESTEROL (test code = 2220) 39 MG/DL CALC LDL CHOL (test code = 2237) 113 MG/DL RISK RATIO LDL/HDL (test code = 2.90 RATIO 2238) LIPID [id number] 00:00:00 Test Item Value Reference Range Interpretation Comments CHOLESTEROL (test code = 2210) 177 MG/DL TRIGLYCERIDES (test code = 2232) 135 MG/DL HDL CHOLESTEROL (test code = 2220) 39 MG/DL CALC LDL CHOL (test code = 2237) 113 MG/DL RISK RATIO LDL/HDL (test code = 2.90 RATIO 2238) COMPREHENSIVE METABOLIC [id number] 00:00:00 Test Item Value Reference Range Interpretation Comments GLUCOSE (test code = 2217) 163 MG/DL BUN (test code = 2208) 24 MG/DL CREATININE (test code = 2214) 1.84 MG/DL eGFR (2020 CKD-EPI) (test code 30 ML/MIN/1.73 = 67122) CALC BUN/CREAT (test code = 13 RATIO 2235) SODIUM (test code = 2231) 144 MEQ/L POTASSIUM (test code = 2228) 3.6 MEQ/L CHLORIDE (test code = 2215) 103 MEQ/L CARBON DIOXIDE (test code = 29 MEQ/L 220) CALCIUM (test code = 2209) 9.6 MG/DL PROTEIN, TOTAL (test code = 7.2 G/DL 2228) ALBUMIN (test code = 2201) 4.2 G/DL CALC GLOBULIN (test code = 3.0 G/DL 2240) CALC A/G RATIO (test code = 1.4 RATIO 2234) BILIRUBIN, TOTAL (test code = 0.9 MG/DL 2206) ALKALINE PHOSPHATASE (test 93 U/L code = 2204) AST (test code = 2218) 23 U/L ALT (test code = 2219) 30 U/L COMPREHENSIVE METABOLIC [id number] 00:00:00 Test Item Value Reference Range Interpretation Comments GLUCOSE (test code = 2217) 163 MG/DL BUN (test code = 2208) 24 MG/DL CREATININE (test code = 2214) 1.84 MG/DL eGFR (2020 CKD-EPI) (test code 30 ML/MIN/1.73 = 12192) CALC BUN/CREAT (test code = 13 RATIO 2235) SODIUM (test code = 2231) 144 MEQ/L POTASSIUM (test code = 2228) 3.6 MEQ/L CHLORIDE (test code = 2215) 103 MEQ/L CARBON DIOXIDE (test code = 29 MEQ/L 2205) CALCIUM (test code = 2209) 9.6 MG/DL PROTEIN, TOTAL (test code = 7.2 G/DL 2228) ALBUMIN (test code = 2201) 4.2 G/DL CALC GLOBULIN (test code = 3.0 G/DL 2240) CALC A/G RATIO (test code = 1.4 RATIO 2234) BILIRUBIN, TOTAL (test code = 0.9 MG/DL 2206) ALKALINE PHOSPHATASE (test 93 U/L code = 2204) AST (test code = 2218) 23 U/L ALT (test code = 2219) 30 U/L HEMOGLOBIN [id number] 00:00:00 Test Item Value Reference Range Interpretation Comments HEMOGLOBIN A1c (test code = 71132) 9.1 % HEMOGLOBIN [id number] 00:00:00 Test Item Value Reference Range Interpretation Comments HEMOGLOBIN A1c (test code = 68821) 9.1 % HEMOGLOBIN [id number] 00:00:00 Test Item Value Reference Range Interpretation Comments HEMOGLOBIN A1c (test code = 63093) 9.1 % HEMOGLOBIN [id number] 00:00:00 Test Item Value Reference Range Interpretation Comments HEMOGLOBIN A1c (test code = 81450) 9.1 % HEMOGLOBIN [id number] 00:00:00 Test Item Value Reference Range Interpretation Comments HEMOGLOBIN A1c (test code = 08454) 9.1 % HEMOGLOBIN [id number] 00:00:00 Test Item Value Reference Range Interpretation Comments HEMOGLOBIN A1c (test code = 02741) 9.1 % HEMOGLOBIN [id number] 00:00:00 Test Item Value Reference Range Interpretation Comments HEMOGLOBIN A1c (test code = 40236) 9.1 % HEMOGLOBIN [id number] 00:00:00 Test Item Value Reference Range Interpretation Comments HEMOGLOBIN A1c (test code = 83852) 9.1 % HEMOGLOBIN [id number] 00:00:00 Test Item Value Reference Range Interpretation Comments HEMOGLOBIN A1c (test code = 01242) 9.1 % HEMOGLOBIN [id number] 00:00:00 Test Item Value Reference Range Interpretation Comments HEMOGLOBIN A1c (test code = 06669) 9.5 % HEMOGLOBIN [id number] 00:00:00 Test Item Value Reference Range Interpretation Comments HEMOGLOBIN A1c (test code = 79950) 9.5 % HEMOGLOBIN [id number] 00:00:00 Test Item Value Reference Range Interpretation Comments HEMOGLOBIN A1c (test code = 03729) 9.5 % HEMOGLOBIN [id number] 00:00:00 Test Item Value Reference Range Interpretation Comments HEMOGLOBIN A1c (test code = 16884) 9.5 % HEMOGLOBIN [id number] 00:00:00 Test Item Value Reference Range Interpretation Comments HEMOGLOBIN A1c (test code = 03735) 9.5 % HEMOGLOBIN [id number] 00:00:00 Test Item Value Reference Range Interpretation Comments HEMOGLOBIN A1c (test code = 17957) 9.5 % HEMOGLOBIN [id number] 00:00:00 Test Item Value Reference Range Interpretation Comments HEMOGLOBIN A1c (test code = 27989) 9.5 % HEMOGLOBIN [id number] 00:00:00 Test Item Value Reference Range Interpretation Comments HEMOGLOBIN A1c (test code = 60244) 9.5 % HEMOGLOBIN [id number] 00:00:00 Test Item Value Reference Range Interpretation Comments HEMOGLOBIN A1c (test code = 55733) 9.5 % HEMOGLOBIN [id number] 00:00:00 Test Item Value Reference Range Interpretation Comments HEMOGLOBIN A1c (test code = 50336) 8.8 % HEMOGLOBIN [id number] 00:00:00 Test Item Value Reference Range Interpretation Comments HEMOGLOBIN A1c (test code = 04026) 8.8 % HEMOGLOBIN [id number] 00:00:00 Test Item Value Reference Range Interpretation Comments HEMOGLOBIN A1c (test code = 37960) 8.8 % LIPID [id number] 00:00:00 Test Item Value Reference Range Interpretation Comments CHOLESTEROL (test code = 2210) 139 MG/DL TRIGLYCERIDES (test code = 2232) 108 MG/DL HDL CHOLESTEROL (test code = 2220) 42 MG/DL CALC LDL CHOL (test code = 2237) 75 MG/DL RISK RATIO LDL/HDL (test code = 1.80 RATIO 2238) LIPID [id number] 00:00:00 Test Item Value Reference Range Interpretation Comments CHOLESTEROL (test code = 2210) 139 MG/DL TRIGLYCERIDES (test code = 2232) 108 MG/DL HDL CHOLESTEROL (test code = 2220) 42 MG/DL CALC LDL CHOL (test code = 2237) 75 MG/DL RISK RATIO LDL/HDL (test code = 1.80 RATIO 2238) COMPREHENSIVE METABOLIC [id number] 00:00:00 Test Item Value Reference Range Interpretation Comments GLUCOSE (test code = 2217) 196 MG/DL BUN (test code = 2208) 23 MG/DL CREATININE (test code = 2214) 1.70 MG/DL eGFR AMER. (test code 37 ML/MIN/1.73 = 41708) eGFR NON- AMER. (test 32 ML/MIN/1.73 code = 05095) CALC BUN/CREAT (test code = 14 RATIO 2235) SODIUM (test code = 2231) 145 MEQ/L POTASSIUM (test code = 2228) 4.6 MEQ/L CHLORIDE (test code = 2215) 104 MEQ/L CARBON DIOXIDE (test code = 26 MEQ/L 2205) CALCIUM (test code = 2209) 9.8 MG/DL PROTEIN, TOTAL (test code = 7.8 G/DL 2228) ALBUMIN (test code = 2201) 4.6 G/DL CALC GLOBULIN (test code = 3.2 G/DL 2240) CALC A/G RATIO (test code = 1.4 RATIO 2234) BILIRUBIN, TOTAL (test code = 0.8 MG/DL 2206) ALKALINE PHOSPHATASE (test 101 U/L code = 2204) AST (test code = 2218) 16 U/L ALT (test code = 2219) 18 U/L COMPREHENSIVE METABOLIC [id number] 00:00:00 Test Item Value Reference Range Interpretation Comments GLUCOSE (test code = 2217) 196 MG/DL BUN (test code = 2208) 23 MG/DL CREATININE (test code = 2214) 1.70 MG/DL eGFR AMER. (test code 37 ML/MIN/1.73 = 60897) eGFR NON- AMER. (test 32 ML/MIN/1.73 code = 83250) CALC BUN/CREAT (test code = 14 RATIO 2235) SODIUM (test code = 2231) 145 MEQ/L POTASSIUM (test code = 2228) 4.6 MEQ/L CHLORIDE (test code = 2215) 104 MEQ/L CARBON DIOXIDE (test code = 26 MEQ/L 2205) CALCIUM (test code = 2209) 9.8 MG/DL PROTEIN, TOTAL (test code = 7.8 G/DL 2228) ALBUMIN (test code = 2201) 4.6 G/DL CALC GLOBULIN (test code = 3.2 G/DL 2240) CALC A/G RATIO (test code = 1.4 RATIO 2234) BILIRUBIN, TOTAL (test code = 0.8 MG/DL 7) ALKALINE PHOSPHATASE (test 101 U/L code = 2204) AST (test code = 2218) 16 U/L ALT (test code = 2219) 18 U/L HEMOGLOBIN [id number] 00:00:00 Test Item Value Reference Range Interpretation Comments HEMOGLOBIN A1c (test code = 92516) 8.8 % HEMOGLOBIN [id number] 00:00:00 Test Item Value Reference Range Interpretation Comments HEMOGLOBIN A1c (test code = 82767) 8.8 % HEMOGLOBIN [id number] 00:00:00 Test Item Value Reference Range Interpretation Comments HEMOGLOBIN A1c (test code = 15573) 8.8 % LIPID [id number] 00:00:00 Test Item Value Reference Range Interpretation Comments CHOLESTEROL (test code = 2210) 139 MG/DL TRIGLYCERIDES (test code = 2232) 108 MG/DL HDL CHOLESTEROL (test code = 2220) 42 MG/DL CALC LDL CHOL (test code = 2237) 75 MG/DL RISK RATIO LDL/HDL (test code = 1.80 RATIO 2238) LIPID [id number] 00:00:00 Test Item Value Reference Range Interpretation Comments CHOLESTEROL (test code = 2210) 139 MG/DL TRIGLYCERIDES (test code = 2232) 108 MG/DL HDL CHOLESTEROL (test code = 2220) 42 MG/DL CALC LDL CHOL (test code = 2237) 75 MG/DL RISK RATIO LDL/HDL (test code = 1.80 RATIO 2238) COMPREHENSIVE METABOLIC [id number] 00:00:00 Test Item Value Reference Range Interpretation Comments GLUCOSE (test code = 2217) 196 MG/DL BUN (test code = 2208) 23 MG/DL CREATININE (test code = 2214) 1.70 MG/DL eGFR AMER. (test code 37 ML/MIN/1.73 = 88344) eGFR NON- AMER. (test 32 ML/MIN/1.73 code = 76498) CALC BUN/CREAT (test code = 14 RATIO 2235) SODIUM (test code = 2231) 145 MEQ/L POTASSIUM (test code = 2228) 4.6 MEQ/L CHLORIDE (test code = 2215) 104 MEQ/L CARBON DIOXIDE (test code = 26 MEQ/L 2205) CALCIUM (test code = 2209) 9.8 MG/DL PROTEIN, TOTAL (test code = 7.8 G/DL 2228) ALBUMIN (test code = 2201) 4.6 G/DL CALC GLOBULIN (test code = 3.2 G/DL 2240) CALC A/G RATIO (test code = 1.4 RATIO 2234) BILIRUBIN, TOTAL (test code = 0.8 MG/DL 2206) ALKALINE PHOSPHATASE (test 101 U/L code = 2204) AST (test code = 2218) 16 U/L ALT (test code = 2219) 18 U/L COMPREHENSIVE METABOLIC [id number] 00:00:00 Test Item Value Reference Range Interpretation Comments GLUCOSE (test code = 2217) 196 MG/DL BUN (test code = 2208) 23 MG/DL CREATININE (test code = 2214) 1.70 MG/DL eGFR AMER. (test code 37 ML/MIN/1.73 = 66328) eGFR NON- AMER. (test 32 ML/MIN/1.73 code = 50778) CALC BUN/CREAT (test code = 14 RATIO 2235) SODIUM (test code = 2231) 145 MEQ/L POTASSIUM (test code = 2228) 4.6 MEQ/L CHLORIDE (test code = 2215) 104 MEQ/L CARBON DIOXIDE (test code = 26 MEQ/L 2205) CALCIUM (test code = 2209) 9.8 MG/DL PROTEIN, TOTAL (test code = 7.8 G/DL 2228) ALBUMIN (test code = 220) 4.6 G/DL CALC GLOBULIN (test code = 3.2 G/DL 2239) CALC A/G RATIO (test code = 1.4 RATIO 2233) BILIRUBIN, TOTAL (test code = 0.8 MG/DL 2206) ALKALINE PHOSPHATASE (test 101 U/L code = 2204) AST (test code = 2218) 16 U/L ALT (test code = 2219) 18 U/L HEMOGLOBIN [id number] 00:00:00 Test Item Value Reference Range Interpretation Comments HEMOGLOBIN A1c (test code = 77907) 8.8 % HEMOGLOBIN [id number] 00:00:00 Test Item Value Reference Range Interpretation Comments HEMOGLOBIN A1c (test code = 26574) 8.8 % HEMOGLOBIN [id number] 00:00:00 Test Item Value Reference Range Interpretation Comments HEMOGLOBIN A1c (test code = 20786) 8.8 % LIPID [id number] 00:00:00 Test Item Value Reference Range Interpretation Comments CHOLESTEROL (test code = 2210) 139 MG/DL TRIGLYCERIDES (test code = 2232) 108 MG/DL HDL CHOLESTEROL (test code = 2220) 42 MG/DL CALC LDL CHOL (test code = 2237) 75 MG/DL RISK RATIO LDL/HDL (test code = 1.80 RATIO 2238) LIPID [id number] 00:00:00 Test Item Value Reference Range Interpretation Comments CHOLESTEROL (test code = 2210) 139 MG/DL TRIGLYCERIDES (test code = 2232) 108 MG/DL HDL CHOLESTEROL (test code = 2220) 42 MG/DL CALC LDL CHOL (test code = 2237) 75 MG/DL RISK RATIO LDL/HDL (test code = 1.80 RATIO 2238) COMPREHENSIVE METABOLIC [id number] 00:00:00 Test Item Value Reference Range Interpretation Comments GLUCOSE (test code = 2217) 196 MG/DL BUN (test code = 2208) 23 MG/DL CREATININE (test code = 2214) 1.70 MG/DL eGFR AMER. (test code 37 ML/MIN/1.73 = 19719) eGFR NON- AMER. (test 32 ML/MIN/1.73 code = 38878) CALC BUN/CREAT (test code = 14 RATIO 2235) SODIUM (test code = 2231) 145 MEQ/L POTASSIUM (test code = 2228) 4.6 MEQ/L CHLORIDE (test code = 2215) 104 MEQ/L CARBON DIOXIDE (test code = 26 MEQ/L 220) CALCIUM (test code = 2209) 9.8 MG/DL PROTEIN, TOTAL (test code = 7.8 G/DL 2228) ALBUMIN (test code = 2201) 4.6 G/DL CALC GLOBULIN (test code = 3.2 G/DL 2240) CALC A/G RATIO (test code = 1.4 RATIO 4) BILIRUBIN, TOTAL (test code = 0.8 MG/DL 2206) ALKALINE PHOSPHATASE (test 101 U/L code = 2204) AST (test code = 2218) 16 U/L ALT (test code = 2219) 18 U/L COMPREHENSIVE METABOLIC [id number] 00:00:00 Test Item Value Reference Range Interpretation Comments GLUCOSE (test code = 2217) 196 MG/DL BUN (test code = 2208) 23 MG/DL CREATININE (test code = 2214) 1.70 MG/DL eGFR AMER. (test code 37 ML/MIN/1.73 = 64640) eGFR NON- AMER. (test 32 ML/MIN/1.73 code = 36969) CALC BUN/CREAT (test code = 14 RATIO 2235) SODIUM (test code = 2231) 145 MEQ/L POTASSIUM (test code = 2228) 4.6 MEQ/L CHLORIDE (test code = 2215) 104 MEQ/L CARBON DIOXIDE (test code = 26 MEQ/L 2206) CALCIUM (test code = 220) 9.8 MG/DL PROTEIN, TOTAL (test code = 7.8 G/DL 2228) ALBUMIN (test code = 2201) 4.6 G/DL CALC GLOBULIN (test code = 3.2 G/DL 2239) CALC A/G RATIO (test code = 1.4 RATIO 2233) BILIRUBIN, TOTAL (test code = 0.8 MG/DL 2206) ALKALINE PHOSPHATASE (test 101 U/L code = 220) AST (test code = 2218) 16 U/L ALT (test code = 2219) 18 U/L"
[2022-09-13] MEDS ORDERED: NA CHLORIDE 0.9% 1,000 ML ONE (20:18)
[2022-09-13] MEDS ORDERED: ONDANSETRON 4 MG/2 ML VIAL ONE (20:18)
[2022-09-13 20:19] LABS: Absolute Lymphocytes (CBC) 1.7 K/uL (0.7-4.9); Hematocrit 39.7 % (36.0-45.0); Lymphocytes % 14.8 % (15.3-44.8); MCV 81.3 fL (80-100); MPV 7.4 fL (7.6-11.3); RBC Red Blood Cell Count 4.89 M/uL (3.86-4.86)
[2022-09-13 20:43] LABS: ALT/SGPT 48 U/L (13-56); AST/SGOT 29 U/L (15-37); Albumin 3.3 g/dL (3.4-5.0); Alkaline Phosphatase 85 U/L (45-117); BUN Blood Urea Nitrogen 33 mg/dL (7-18); Bicarbonate 29 mmol/L (21-32); Bilirubin Total 0.9 mg/dL (0.2-1.0); Glomerular Filtration Rate 15 ml/min (=/>90); Lipase 194 U/L (73-393); Magnesium 2.3 mg/dL (1.6-2.4); Potassium 3.5 mmol/L (3.5-5.1); Protein, Total 7.3 g/dL (6.4-8.2); Sodium Level 133 mmol/L (136-145); Troponin High Sensitivity 25.3 pg/mL (<58.9)
--- NOTE | 2022-09-13 20:45 | RAD REPORT ---
EXAM DESCRIPTION: RAD - Chest Single View - 09/13/2022 8:38 pm CLINICAL HISTORY: AMS Chest pain. COMPARISON: Chest Pa And Lat (2 Views) dated 01/20/2022 FINDINGS: Portable technique limits examination quality. Mild right-sided lung opacities probably represent asymmetric mild pulmonary edema. The heart is mild ly prominent size. No displaced fractures.
[2022-09-13 20:46] LABS: Glucose Level 575 mg/dL (74-106)
[2022-09-13 21:03] LABS: Urine Blood 2+ (Negative); Urine Glucose 2+ (Negative); Urine Protein 3+ (Negative); Urine Specific Gravity 1.015 (1.005-1.030)
[2022-09-13 21:15] LABS: Urine Bacteria <20 /HPF (<20); Urine Crystals Unidentified Few /HPF (None Seen); Urine Mucus Slight /HPF (None Seen); Urine RBC <5 /HPF (None Seen)
[2022-09-13 21:17] LABS: Barbiturates NEGATIVE (NEGATIVE); Benzodiazepines NEGATIVE (NEGATIVE); Cocaine NEGATIVE (NEGATIVE); METHAMPHETAM NEGATIVE (NEGATIVE); Methadone NEGATIVE (NEGATIVE); Opiates NEGATIVE (NEGATIVE); Phencyclidine NEGATIVE (NEGATIVE); THC Cannibis NEGATIVE (NEGATIVE)
--- NOTE | 2022-09-13 21:30 | RAD REPORT ---
EXAM DESCRIPTION: CT - Head Brain Wo Cont - 09/13/2022 9:19 pm CLINICAL HISTORY: AMS Headache, drowsiness COMPARISON: No comparisons TECHNIQUE: All CT scans are performed using dose optimization technique as appropriate and may inclu de automated exposure control or mA/KV adjustment according to patient size. FINDINGS: There is abnormal mass effect seen on the right frontal lobe.There is subtle area of corti meghana buckling seen superior right frontal lobe with evidence of extra-axial mass potentially present r ight frontal convexity measuring 25 mm in size.There is right to left midline shift present greatest measuring 9 mm in the frontal lobe region. No intracranial hemorrhage or hydrocephalus evident. The paranasal sinuses and mastoids are clear. The calvarium is intact. IMPRESSION: Significant abnormal mass-effect is seen on the right frontal lobe with 9-10 mm of right to left midline shift. This is likely caused by a right frontal mass lesion which may be extra-axia l in location, although the lesion is difficult to visualize due to similar attenuation to brain pare nchyma. Recommend MRI the brain with contrast for further evaluation.
[2022-09-13] MEDS ORDERED: LEVETIRACETAM 500 MG/5 ML VIAL IV ONE (22:31)
[2022-09-13] MEDS ORDERED: dexAMETHasone 10 MG/ML VIAL ONE (22:32)
[2022-09-13] MEDS ORDERED: INSULIN -REGULAR HUMAN 50 UNIT/0.5 ML ML ONE (22:33)
[2022-09-13] MEDS ORDERED: NA CHLORIDE 0.9% 100 ML IV ONE (22:44)
[2022-09-13 22:58] LABS: SARS-CoV-2 Antigen Rapid Res Negative (Negative)
--- NOTE | 2022-09-13 23:12 | EDPHYS ---
Physician Documentation [facility] Name: Nathalia Cooley Age: 67 yrs Sex: Female : 1955 Arrival Date: 09/13/2022 Time: 19:29 Bed 14 Private MD: ED Physician Juan M Monsivais HPI: 09/13 19:55 This 67 yrs old Black Female presents to ER via EMS with complaints of Altered mental rt status. 19:55 The patient presents with confusion, decreased mental status. Associated signs and rt symptoms: Pertinent positives: nausea. Unable to obtain HPI due to altered mental status. History limited due to patient with altered mental status. Patient presents to the ED with an apparent seizure-like activity just prior to arrival, the patient's daughter states that she has been not been normal for about 2 weeks now. She states that the patient was confused. The patient was reportedly responsive to pain only. Patient is awake enough to state that she feels nauseated. His blood sugar was reportedly over 500. Denies other acute complaints at this time, symptoms are moderate in severity, no other aggravating or alleviating factors.. Historical: - Allergies: 19:48 No Known Allergies; eh3 - PMHx: 19:48 Hypertensive disorder; Congestive heart failure; Diabetes mellitus; eh3 - Immunization history:: Adult Immunizations unknown. - Social history:: Smoking status: Patient denies any tobacco usage or history of. Patient/guardian denies using alcohol. - Unable to obtain history due to: altered mental status. ROS: 19:55 Unable to obtain ROS due to altered mental status. rt Exam: 19:55 Constitutional: This is a well developed, well nourished patient who is awake, alert, rt and in no acute distress. Head/Face: Normocephalic, atraumatic. Eyes: Pupils equal round and reactive to light, extra-ocular motions intact. Lids and lashes normal. Conjunctiva and sclera are non-icteric and not injected. Cornea within normal limits. Periorbital areas with no swelling, redness, or edema. Neck: Trachea midline, no thyromegaly or masses palpated, and no cervical lymphadenopathy. Supple, full range of motion without nuchal rigidity, or vertebral point tenderness. No Meningismus. Chest/axilla: Normal chest wall appearance and motion. Nontender with no deformity. No lesions are appreciated. Cardiovascular: Regular rate and rhythm with a normal S1 and S2. No gallops, murmurs, or rubs. Normal PMI, no JVD. No pulse deficits. Respiratory: Lungs have equal breath sounds bilaterally, clear to auscultation and percussion. No rales, rhonchi or wheezes noted. No increased work of breathing, no retractions or nasal flaring. Abdomen/GI: Soft, non-tender, with normal bowel sounds. No distension or tympany. No guarding or rebound. No evidence of tenderness throughout. Skin: Warm, dry with normal turgor. Normal color with no rashes, no lesions, and no evidence of cellulitis. MS/ Extremity: Pulses equal, no cyanosis. Neurovascular intact. Full, normal range of motion. Psych: not assessable 19:55 ENT: Dry mucous membrane. 19:55 Neuro: paucity of speech, no cranial nerve deficits, strength intact in upper and lower extremities, sensation not testable.. Vital Signs: 19:34 BP 171 / 151; Pulse 74; Resp 20; Temp 97.1(O); Pulse Ox 95% on R/A; Weight 129.27 kg; 3 Height 5 ft. 6 in. (167.64 cm); 20:00 BP 200 / 103; Pulse 74; Resp 18; Pulse Ox 95% on R/A; 3 21:00 BP 194 / 101; Pulse 74; Resp 23; Pulse Ox 95% on R/A; [facility] 09/14 00:00 BP 129 / 79; Resp 20; Pulse Ox 95% on R/A; [facility] 09/13 19:34 Body Mass Index 46.00 (129.27 kg, 167.64 cm) [facility] MDM: 09/13 19:31 Patient medically screened. rt 23:11 Differential Diagnosis: CVA, seizure, mass. Data reviewed: vital signs, nurses notes, rt lab test result(s), EKG, radiologic studies. 09/13 19:39 Order name: CBC with Diff; Complete Time: 21:18 rt 09/13 19:39 Order name: CMP; Complete Time: 21:18 rt 09/13 19:39 Order name: Magnesium; Complete Time: 21:18 rt 09/13 19:39 Order name: Troponin High Sensitivity; Complete Time: 21:18 rt 09/13 19:39 Order name: Lipase; Complete Time: 21:18 rt 09/13 19:39 Order name: UA MICROSCOPIC; Complete Time: 21:18 rt 09/13 19:39 Order name: Chest Single View XRAY; Complete Time: 21:18 rt 09/13 19:39 Order name: Ketone, Serum; Complete Time: 21:18 rt 09/13 19:39 Order name: UDS; Complete Time: 21:18 rt 09/13 19:39 Order name: Alcohol Level; Complete Time: 21:18 rt 09/13 19:53 Order name: Glucose, Ancillary Testing; Complete Time: 21:18 EDMS 09/13 21:03 Order name: Urine Dipstick-Ancillary; Complete Time: 21:18 EDMS 09/13 22:28 Order name: SARS RAPID rt 09/13 19:39 Order name: Urine Dipstick-Ancillary (obtain specimen); Complete Time: 21:19 rt 09/13 19:39 Order name: CT Head Brain wo Cont; Complete Time: 21:34 rt Administered Medications: 20:20 Drug: NS 0.9% 1000 ml Route: IV; Rate: 1000 ml; Site: right antecubital; [facility] 09/14 00:08 Follow up: IV Status: IV converted to saline lock; IV Intake: 800ml [facility] 09/13 20:20 Drug: Zofran (Ondansetron) 4 mg Route: IVP; Site: right antecubital; [facility] 22:25 Follow up: Response: Nausea is decreased [facility] 22:05 CANCELLED (dose difference): Keppra (levETIRAcetam) 2 mg IV at 1 calculated rate once rt 22:35 Drug: Decadron - Dexamethasone 10 mg Route: IVP; Site: right antecubital; [facility] 23:26 Follow up: Response: No adverse reaction [facility] 22:35 Drug: Insulin Regular Human 10 units {Co-Signature: [email or web address] (Colette Humphries RN).} Route: IVP; [facility] Site: right antecubital; 09/14 00:08 Follow up: Response: Blood sugar is lowered [facility] 09/13 22:45 Drug: Keppra (levETIRAcetam) 2000 mg Route: IV; Rate: calculated rate; Site: right [facility] antecubital; 23:00 Follow up: Response: Marked relief of symptoms; IV Status: Completed infusion; IV eh3 Intake: 100ml Disposition: 23:11 Critical Care:. rt Disposition Summary: 09/13/22 23:11 Transfer Ordered Transfer Location: [facility] rt Reason: Higher level of care rt Condition: Critical rt Problem: new rt Symptoms: have improved rt Accepting Physician: Sukhwinder(09/14/22 00:15) eh3 Diagnosis - Frontal lobe mass with midline shift rt - ROCKY rt - hyperglycemia rt - new onset seizure rt Forms: - Medication Reconciliation Form rt - SBAR form rt Critical care time excluding procedures: 23:11 Critical care time: Bedside Care: 30 minutes, Consultation: 10 minutes. Total time: 40 rt minutes Signatures: Dispatcher [employer] Afshan Antony RN RN eh3 Juan M Monsivais MD MD rt Colette Humphries RN ha1 Corrections: (The following items were deleted from the chart) 22:05 21:59 Keppra (levETIRAcetam) 2 mg IV at 1 calculated rate once ordered. rt rt 09/14 00:15 09/13 23:11 Sukhwinder rt 3
--- NOTE | 2022-09-13 23:12 | ER ---
Nurse's Notes [facility] Name: Nathalia Cooley Age: 67 yrs Sex: Female : 1955 Arrival Date: 09/13/2022 Time: 19:29 Bed 14 Private MD: Diagnosis: Frontal lobe mass with midline shift;ROCKY;hyperglycemia;new onset seizure Presentation: 09/13 19:34 Chief complaint: EMS states: toned out for syncopal episode. Daughter was driving with 3 pt in passenger seat and pt stated, "my hand!" then reached out her right hand, started shaking, and went unresponsive. Daughter states pt was unresponsive for about 5 minutes until EMS arrived. Pt states, "I'm so sick." EMS reported BGL [employer]. Ebola Screen: No symptoms or risks identified at this time. Initial Sepsis Screen: Does the patient meet any 2 criteria?. Risk Assessment: Do you want to hurt yourself or someone else? Patient reports no desire to harm self or others. Patient reports desire/thoughts of hurting themselves or someone else. Provider notified. Onset of symptoms was September 13, 2022. 19:34 Method Of Arrival: EMS: [place] [id number] 19:34 Acuity: PANCHITO 3 3 19:34 Initial Sepsis Screen: Does the patient meet any 2 criteria? Altered Mental Status. No. eh3 Patient's initial sepsis screen is negative. Does the patient have a suspected source of infection? No. Patient's initial sepsis screen is negative. Triage Assessment: 19:48 General: Appears distressed, uncomfortable, Behavior is listless, uncooperative. Pain: eh3 Complains of pain in abdomen Also complains of nausea. EENT: No signs and/or symptoms were reported regarding the EENT system. Neuro: Level of Consciousness is awake, confused, lethargic, Oriented to person, situation. Cardiovascular: Capillary refill < 3 seconds Patient's skin is warm and dry. Respiratory: Airway is patent Respiratory effort is even, unlabored, Respiratory pattern is regular, symmetrical. GI: Abdomen is round non-distended, Reports nausea. : No signs and/or symptoms were reported regarding the genitourinary system. Derm: No signs and/or symptoms reported regarding the dermatologic system. Musculoskeletal: No signs and/or symptoms reported regarding the musculoskeletal system. Circulation, motion, and sensation intact. Range of motion: intact in all extremities. Historical: - Allergies: 19:48 No Known Allergies; eh3 - PMHx: 19:48 Hypertensive disorder; Congestive heart failure; Diabetes mellitus; 3 - Immunization history:: Adult Immunizations unknown. - Social history:: Smoking status: Patient denies any tobacco usage or history of. Patient/guardian denies using alcohol. - Unable to obtain history due to: altered mental status. Screenin:34 [facility] ED Fall Risk Assessment (Adult) History of falling in the last 3 months, 3 including since admission No falls in past 3 months (0 pts). Abuse screen: Denies threats or abuse. Denies injuries from another. Nutritional screening: No deficits noted. Tuberculosis screening: No symptoms or risk factors identified. Assessment: 19:34 Reassessment: No changes from previously documented assessment. See triage assessment. [facility] 20:00 Reassessment: Patient appears in no apparent distress at this time. Patient and/or 3 family updated on plan of care and expected duration. Pain level reassessed. Pt trying to pull out IV, will not leave BP/spO2/campus monitor in place, Trying to climb out of bed, verbalized understanding to remain in bed to avoid falling Pt is A\\T\\Ox2, equal unlabored respirations, skin warm/dry/pink. 21:00 Reassessment: Patient appears in no apparent distress at this time. Patient and/or 3 family updated on plan of care and expected duration. Pain level reassessed. Pt is A\\T\\Ox2, equal unlabored respirations, skin warm/dry/pink. 22:00 Reassessment: Patient appears in no apparent distress at this time. Patient and/or 3 family updated on plan of care and expected duration. Pain level reassessed. Pt is A\\T\\Ox2, equal unlabored respirations, skin warm/dry/pink. 23:00 Reassessment: Patient appears in no apparent distress at this time. Patient and/or 3 family updated on plan of care and expected duration. Pain level reassessed. Pt is A\\T\\Ox2, equal unlabored respirations, skin warm/dry/pink. Vital Signs: 19:34 BP 171 / 151; Pulse 74; Resp 20; Temp 97.1(O); Pulse Ox 95% on R/A; Weight 129.27 kg; eh3 Height 5 ft. 6 in. (167.64 cm); 20:00 BP 200 / 103; Pulse 74; Resp 18; Pulse Ox 95% on R/A; eh3 21:00 BP 194 / 101; Pulse 74; Resp 23; Pulse Ox 95% on R/A; eh3 09/14 00:00 BP 129 / 79; Resp 20; Pulse Ox 95% on R/A; eh3 09/13 19:34 Body Mass Index 46.00 (129.27 kg, 167.64 cm) 3 ED Course: 09/13 19:29 Patient arrived in ED. wm 19:29 Juan M Monsivais MD is Attending Physician. rt 19:34 Afshan Ma, YOU is Primary Nurse. eh3 19:34 Patient has correct armband on for positive identification. Placed in gown. Bed in low eh3 position. Call light in reach. Side rails up X2. Adult w/ patient. Client placed on continuous cardiac and pulse oximetry monitoring. NIBP monitoring applied. Door closed. Noise minimized. Warm blanket given. 19:34 Maintain EMS IV. Dressing intact. Good blood return noted. Site clean \\T\\ dry. Gauge \\T\\ eh 3 site: 20g RAC. 19:45 Triage completed. eh3 19:48 Arm band placed on right wrist. eh3 20:00 Assisted with bedpan. Cleaned of incontinence. eh3 20:39 Chest Single View XRAY In Process Unspecified. EDMS 21:00 Assisted to bedside commode. Cleaned of incontinence. Linen changed. eh3 21:20 CT Head Brain wo Cont In Process Unspecified. EDMS 22:00 Initiated transfer to [facility], spoke with Venecia, immediately Doc to Doc followed. wm 23:00 No provider procedures requiring assistance completed. Patient transferred, IV remains eh3 in place. 23:04 Pt accepted for transfer by Sukhwinder Mota \\T\\ 2052 per Venecia Oakley. wm Administered Medications: 20:20 Drug: NS 0.9% 1000 ml Route: IV; Rate: 1000 ml; Site: right antecubital; 3 09/14 00:08 Follow up: IV Status: IV converted to saline lock; IV Intake: 800ml [facility] 09/13 20:20 Drug: Zofran (Ondansetron) 4 mg Route: IVP; Site: right antecubital; 3 22:25 Follow up: Response: Nausea is decreased 3 22:05 CANCELLED (dose difference): Keppra (levETIRAcetam) 2 mg IV at 1 calculated rate once rt 22:35 Drug: Decadron - Dexamethasone 10 mg Route: IVP; Site: right antecubital; 3 23:26 Follow up: Response: No adverse reaction [facility] 22:35 Drug: Insulin Regular Human 10 units {Co-Signature: [email or web address] (Colette Humphries RN).} Route: IVP; 3 Site: right antecubital; 09/14 00:08 Follow up: Response: Blood sugar is lowered [facility] 09/13 22:45 Drug: Keppra (levETIRAcetam) 2000 mg Route: IV; Rate: calculated rate; Site: right 3 antecubital; 23:00 Follow up: Response: Marked relief of symptoms; IV Status: Completed infusion; IV eh3 Intake: 100ml Medication: 23:00 VIS not applicable for this client. eh3 Intake: 23:00 IV: 100ml; Total: 100ml. 3 09/14 00:08 IV: 800ml; Total: 900ml. eh3 Outcome: 09/13 23:11 ER care complete, transfer ordered by . rt 09/14 00:14 Transferred by ground EMS to [facility]. eh3 Condition: stable Instructed on the need for transfer. 00:15 Patient left the ED. eh3 Signatures: Dispatcher [employer] EDMS Nara Bo Afshan Ma RN RN 3 Juan M Monsivais MD MD rt Colette Humphries RN ha1 Corrections: (The following items were deleted from the chart) 09/13 19:48 19:34 BP 171 / 151; Pulse 74bpm; Resp 22bpm; Pulse Ox 95% RA; 129.27 kg; Height 5 ft. 6 eh3 in.; BMI: 46.0; eh3 09/14 00:12 09/13 20:00 Reassessment: Patient appears in no apparent distress at this time. Patient eh3 and/or family updated on plan of care and expected duration. Pain level reassessed. Patient is alert, oriented x 3, equal unlabored respirations, skin warm/dry/pink. Pt trying to pull out IV, will not leave BP/spO2/campus monitor in place, Trying to climb out of bed, verbalized understanding to remain in bed to avoid falling eh3 09/14 00:12 09/13 21:00 Reassessment: Patient appears in no apparent distress at this time. Patient eh3 and/or family updated on plan of care and expected duration. Pain level reassessed. Patient is alert, oriented x 3, equal unlabored respirations, skin warm/dry/pink. eh3
[2022-09-14 00:41] VITALS: TEMP 97.1; O2SAT 95
[2022-09-14 00:43] VITALS: BP 194/101
== END 2022-09-14 00:15 | disposition short-term general hospital (02) ==
LOC: ER 19:07
DX: G93.9 Disorder of brain, unspecified (principal); N17.9 Acute kidney failure, unspecified; E11.65 Type 2 diabetes mellitus with hyperglycemia; R56.9 Unspecified convulsions; I50.9 Heart failure, unspecified; I10 Essential (primary) hypertension; Z20.822 Contact with and (suspected) exposure to COVID-19
CPT/HCPCS: 85025; 36415; 80320; 82010; 83735; 82947 ×2; 84484; 83690; 80053; 80307; 70450; 71045; 87811; J1815; J1100; J1953; J7030; J2405; 81003; 81015; 96361; 96374; 96375; 99285

== ENCOUNTER 2022-10-28 20:15 | Emergency (ER) | payer OTHER ==
--- OUTSIDE RECORDS SUMMARY | 2022-10-28 20:31 | XMS REPORT | Continuity of Care Document ---
:1955 Author Organization [facility] t Address [facility] [place] [address] Care Team Providers Name Role Phone ELO WILEY Primary Care Physician Unavailable Sukhwinder TRUONG, Benito Reeves Attending Clinician [phone] Jamal TRUONG, Alexey In Attending Clinician Hector Hernandez MD Attending Clinician Alysa TRUONG, Mari Quiroga Attending Clinician [phone] Aamir TRUONG, Sami Attending Clinician Claudia Skelton MD Attending Clinician [phone] CLAUDIA SKELTON Attending Clinician Unavailable Jeff Stacy Attending Clinician Tigist TRUONG, Christine Funez Attending Clinician [phone] Waylon TRUONG, Smith Cooper Attending Clinician JAROD BOUDREAUX Attending Clinician Unavailable Jarod Boudreaux MD Attending Clinician Doctor Unassigned, [place] Attending Clinician Unavailable Radiology Attending Clinician Unavailable RADIOLOGY Attending Clinician Unavailable ILIANA CHAVEZ Attending Clinician Unavailable Iliana Chavez DO Attending Clinician UNKNOWN, ATTENDING Attending Clinician Unavailable Unknown, Attending Attending Clinician Unavailable Provider, [facility] Attending Clinician Unavailable Radha Goldsmith MD Attending Clinician RADHA GOLDSMITH Attending Clinician Unavailable BENITO PRETTY I. Admitting Clinician Unavailable JAROD BOUDREAUX Admitting Clinician Unavailable Jarod Boudreaux MD Admitting Clinician ELO WILEY Admitting Clinician Unavailable Payers Payer Name Policy Type Policy Number Effective Date Expiration Date Rafal ORELLANA/JOSE [id number] 2021 MEDICARE ADVANTAGE 00:00:00 Problems Condition Condition Condition Status Onset Resolution Last Treating Co mments Source Name Details Category Date Date Treatment Clinician Date Diabetes Diabetes Disease [facility] [place] Seizure Seizure Disease Active 2021-[address] [facility] 2-25 [facility] 00[facility]: [facility] [place] Brain mass Brain mass Disease Active 2021-[address] [facility]25 [facility] 00:[facility]: [facility] [place] Dehydratio Dehydratio Disease Active 2021-[address] n n 2-25 [facility] 00:[facility]: [employer] [place] Cerebral Cerebral Disease Active 2021-[facility] edema edema [facility] [place] HTN HTN Disease Active 2021-[address] (hypertens (hypertens 2-25 [facility] ion) ion) 00:00: [employer] [place] Hypertensi Hypertensi Disease Active 2021-[address] ve crisis ve crisis 2-25 [facility] 00:00: [employer] [place] ROCKY (acute ROCKY (acute Disease Active 2021-[address] kidney kidney 2-25 [facility] injury) injury) 00:00: Medical 00 [employer] [place] Chest pain Chest pain Disease Active U nivers 5-05 ity of 00:00: [address] Branch Obesity Obesity Disease Active Univers (BMI (BMI 5-05 ity of 30-39.9) 30-39.9) 00:00: [place] 00 [facility] Hypertensi Hypertensi Disease Active U nivers ve urgency ve urgency 5-05 it y of 00:00: [place] 00 Medical Branch Morbidly Morbidly Disease Active Unive rs obese obese 6-17 ity of 00:00: [place] [facility] Essential Essential Disease Active Uni vers hypertensi hypertensi -17 it y [place], benign [place] Type 2 Type 2 Disease Active Univers diabetes diabetes 17 ity of mellitus mellitus 00:00: [place] without without 00 Medical complicati complicati Br anch on on Hyperchole Hyperchole Disease Active U nivers steremia steremia 17 ity of 00:00: [place] 00 Medical Branch DKA DKA Disease Resolve 2021-092022-09-17 2022-09-[address] [facility] (diabetic (diabetic d 2-25 00:00:00 10:34:48 [facility] ketoacidos ketoacidos 00:00: Me dical is) is) 00 Center Allergies, Adverse Reactions, Alerts Allergy Allergy Status Severity Reaction(s) Onset Inactive Treating Comm ents Source Name Type Date Date Clinician POISON DRUG Active Hives Univers ROSALINDA INGREDI 8-15 ity of EXTRACT 00:00: [place] [facility] Poison Propensi Active Hives Univers Rosalinda ty to 8-15 ity of Extract adverse 00:00: [place] reaction 00 Medical s Branch LACTOSE DRUG Active Diarrhea Univers INGREDI 5-05 ity of 00:00: [place] 00 Medical Branch Lactose Propensi Active Diarrhea Lactose Univ ers ty to 5-05 intoleran ity of adverse 00:00: t [place] reaction Medical s [employer] NO KNOWN Allergy Active [facility] Social History Social Habit Start Date Stop Date Quantity Comments Source History [facility] [employer] [facility] Non-Med Medical Center History [facility] 2022-09-15 2022-09-15 2 [facility] [employer] Housing Unable to 00:00:00 00:00:00 Medical Center Pay History [facility] 2022-09-15 2022-09-15 [address] [facility] 00:[facility]00 00:00:00 Medical Ce nter Lived History [facility] 2022-09-15 2022-09-[address] [facility] Housing Homeless 00:00:00 00:00:00 Medical Center Last Year Tobacco use and 2022-09-15 2022-09-[address] [facility] exposure 00:00:00 00:00:00 Medical Center History [facility] 2022-09-15 2022-09-[address] [facility] Transport Med 00:00:00 00:00:[address] Alcohol intake 2022-05-14 2022-05-14 0 /d [facility] 00:00:00 00:00:00 Medical Branch Exposure to 2022-04-28 2022-05-08 Not sure [facility] SARS-CoV-2 (event) 00:00:00 13:10:00 Medica l Branch Sex Assigned At [address] [facility] 00:00:00 00:00:00 Medical Center Smoking Status Start Date Stop Date Source Never sm[facility] Medications Ordered Filled Start Stop Current Ordering Indication Dosage Frequency Signature Comments Components Source Medication Medication Date Date Medication? Clinician (SIG) Name Name benzonatate Yes cough 100mg Take [address] [facility] (TESSALON) 1-05 mg by [facility] 100 MG 17:51: mouth 3 Medical capsule 58 (three) Center times daily as needed for Cough. semaglutide Yes .25mg Q7D Inject [facility] (OZEMPIC) 1-05 0.25 mg [facility] 0.25 mg or 17:51: subcutaneo M edical 0.5 mg (2 58 usly once Cente r mg/1.5 mL) a week. subcutaneou s pen benzonatate Yes cough 100mg Take [address] (TESSALON) 1-05 mg by [facility] 100 MG 17:51: mouth 3 Medical capsule 58 (three) Center times daily as needed for Cough. semaglutide Yes .25mg Q7D Inject [facility] (OZEMPIC) 1-05 0.25 mg [facility] 0.25 mg or 17:51: subcutaneo M edical 0.5 mg (2 58 usly once Cente r mg/1.5 mL) a week. subcutaneou s pen benzonatate 2022-0 Yes cough 100mg Take [address] (TESSALON) 1-05 mg by [facility] 100 MG 17:51: mouth 3 Medical capsule 58 (three) Center times daily as needed for Cough. semaglutide 2022-0 Yes .25mg Q7D Inject [facility] (OZEMPIC) 1-05 0.25 mg [facility] 0.25 mg or 17:51: subcutaneo M edical 0.5 mg (2 58 usly once Cente r mg/1.5 mL) a week. subcutaneou s pen famotidine 2022-0 Yes 20mg QD Take 1 [facility] (PEPCID) 20 1-05 tablet (20 [facility] MG tablet 00:00: mg total) Med ical 00 by mouth Center daily. famotidine 3-0 Yes 20mg QD Take 1 [facility] (PEPCID) 20 1-05 tablet (20 [facility] MG tablet 00:00: mg total) Med ical 00 by mouth Center daily. famotidine 3-0 Yes 20mg QD Take 1 [facility] (PEPCID) 20 1-05 tablet (20 [facility] MG tablet 00:00: mg total) Med ical 00 by mouth Center daily. atorvastati 2023- Yes 40mg QD Take [address] n (LIPITOR) 1- 01-05 tablet (40 L ukes 40 MG 00:00: 23:59 mg total) Medica l tablet 00 :00 by mouth Center daily. NIFEdipine 2023- Yes 60mg QD Take [address] [facility] (PROCARDIA- -05 -05 tablet (60 L ukes XL) 60 MG 00:00: 23:59 mg total) Me dical (OSM) 24 hr 00 :00 by mouth Cent er tablet daily. atorvastati 2023- Yes 40mg QD Take [address] [facility] [facility] n (LIPITOR) -05 01-05 tablet (40 L ukes 40 MG 00:00: 23:59 mg total) Medica l tablet 00 :00 by mouth Center daily. NIFEdipine 2022-2023- Yes 60mg QD Take [address] [facility] (PROCARDIA- 1-05 01-05 tablet (60 L ukes XL) 60 MG 00:00: 23:59 mg total) Me dical (OSM) 24 hr 00 :00 by mouth Cent er tablet daily. atorvastati 2023- Yes 40mg QD Take [address] [facility] n (LIPITOR) 09-25 tablet (40 L ukes 40 MG 00:00: 23:59 mg total) Medica l tablet 00 :00 by mouth Center daily. NIFEdipine 2023- Yes 60mg QD Take [address] [facility] (PROCARDIA- 09-25 tablet (60 L ukes XL) 60 MG 00:00: 23:59 mg total) Me dical (OSM) 24 hr 00 :00 by mouth Cent er tablet daily. cloNIDine 2022- No hypertensio .2mg [id number] Take 0.[address] HCL 09-24 n [id number] mg by [place] (CATAPRES) 10:36: 00:00 3D mouth 3 Med ical 0.2 MG 54 :00 (three) Center tablet times daily. losartan-hy 2022- No 1{tbl} QD Take [address] droCHLOROth 09-24 tablet by Nuria montoya iazide 10:36: 00:00 mouth Medical (HYZAAR) 54 :00 daily. Center 100-25 mg per tablet sertraline 2022- No 100mg QD Take [address] (ZOLOFT) 09-24 mg by [place] 100 MG 10:36: 00:00 mouth Medical tablet 54 :00 daily. Center glipiZIDE 2022- No 5mg Take [address] (GLUCOTROL) 09-24 by mouth 2 L ukes 5 MG tablet 10:36: 00:00 (two) Medi meghana 54 :00 times Center daily before meals. insulin 2022- No QD Inject [facility] glargine 09-24 subcutaneo Juan F s (LANTUS, 10:36: 00:00 [facility] SEMGLEE) 54 :00 nightly Center 100 unit/mL Use as injection directed . cloNIDine 2022- No hypertensio .2mg Q.[id number] Take 0.[address] HCL 09-24-04 n [id number] mg by [facility] (CATAPRES) 10:36: 00:00 3D mouth 3 Med ical 0.2 MG 54 :00 (three) Center tablet times daily. losartan-hy 2022- No 1{tbl} QD Take [address] droCHLOROth 09-24 tablet by Nuria montoya iazide 10:36: 00:00 mouth Medical (HYZAAR) 54 :00 daily. Center 100-25 mg per tablet sertraline 2022- No 100mg QD Take [address] (ZOLOFT) 09-24-04 mg by [facility] 100 MG 10:36: 00:00 mouth Medical tablet 54 :[address] daily. [employer] [place] glipiZIDE 2022- No 5mg Take [address] (GLUCOTROL) 09-24 by mouth 2 L ukes 5 MG tablet 10:36: 00:00 (two) Medi meghana 54 :00 times Center daily before meals. insulin 2022- No QD Inject [facility] glargine 09-24 subcutaneo Luke s (LANTUS, 10:36: 00:[address] [facility]) 54 :00 nightly Center 100 unit/mL Use as injection directed . cloNIDine 2022- No hypertensio .2mg Q.[id number] Take 0.[address] HCL 09-24-04 n [id number] mg by [facility] (CATAPRES) 10:36: 00:00 3D mouth 3 Med ical 0.2 MG 54 :00 (three) Center tablet times daily. losartan-hy 2022- No 1{tbl} QD Take [address] droCHLOROth 09-24 tablet by Nuria montoya iazide 10:36: 00:00 mouth Medical (HYZAAR) 54 :00 daily. Center 100-25 mg per tablet sertraline 2022- No 100mg QD Take [address] (ZOLOFT) 09-24-04 mg by [facility] 100 MG 10:36: 00:00 mouth Medical tablet 54 :[address] daily. [employer] [place] glipiZIDE 2022- No 5mg Take [address] (GLUCOTROL) 09-2404 by mouth 2 L ukes 5 MG tablet 10:36: 00:00 (two) Medi meghana 54 :00 times Center daily before meals. insulin 2022-0 3- No QD Inject [facility] glargine 09-24 subcutaneo Luke [facility] (LANTUS, 10:36: [facility] Center 100 unit/mL Use as injection directed . sertraline 2022-0 Yes 100mg QD Take [address] (ZOLOFT) -04 tablet [facility] 100 MG 00:00: (100 mg Medical tablet 00 total) by Center mouth daily. dexAMETHaso 3-0 Yes 4MG TID [facility] ne 1-04 FOR 2 DAYS [facility] (DECADRON) 00:00: AND THEN Med ical 4 MG tablet 00 4MG BID Cente r FOR 2 DAYS AND THEN 4MG DAILY FOR 2 DAYS AND THEN STOP IN TOTAL DAYS. sertraline 2022-0 Yes 100mg QD Take [address] [facility] [facility] (ZOLOFT) 04 tablet [facility] 100 MG 00:00: (100 mg Medical tablet 00 total) by Center mouth daily. dexAMETHaso 3-0 Yes 4MG TID [facility] ne 1-04 FOR 2 DAYS [facility] (DECADRON) 00:00: AND THEN Med ical 4 MG tablet 00 4MG BID Cente r FOR 2 DAYS AND THEN 4MG DAILY FOR 2 DAYS AND THEN STOP IN TOTAL DAYS. sertraline 3-0 Yes 100mg QD Take [address] [facility] (ZOLOFT) 1-04 tablet [facility] 100 MG 00:00: (100 mg Medical tablet 00 total) by Center mouth daily. dexAMETHaso 2023-0 Yes 4MG TID [facility] ne 1-04 FOR 2 DAYS [facility] (DECADRON) 00:00: AND THEN Med ical 4 MG tablet 00 4MG BID Cente r FOR 2 DAYS AND THEN 4MG DAILY FOR 2 DAYS AND THEN STOP IN TOTAL DAYS. carvediloL 2022-0 2024- Yes 12.5mg Q.5D Take [address] (COREG) 09-24 tablet [facility] 12.5 MG 00:00: 23:59 (12.5 mg Medic al tablet 00 :00 total) by Center mouth 2 (two) times daily. levETIRAcet 2023- Yes 500mg Q.5D Take [address] am (KEPPRA) 09-24 tablet [facility] 500 MG 00:00: 23:59 (500 mg Medical tablet 00 :00 total) by Center mouth 2 (two) times daily. losartan 2023- Yes 50mg QD Take [address] [facility] (COZAAR) 50 09-24 tablet (50 L ukes MG tablet 00:00: 23:59 mg total) Me dical 00 :00 by mouth Center daily. carvediloL 2023- Yes 12.5mg Q.5D Take [address] (COREG) 09-24 tablet [facility] 12.5 MG 00:00: 23:59 (12.5 mg Medic al tablet 00 :00 total) by Center mouth 2 (two) times daily. levETIRAcet 2023- Yes 500mg Q.5D Take [address] am (KEPPRA) 09-24 tablet [facility] 500 MG 00:00: 23:59 (500 mg Medical tablet 00 :00 total) by Center mouth 2 (two) times daily. losartan 2023- Yes 50mg QD Take [address] [facility] (COZAAR) 50 09-24 tablet (50 L ukes MG tablet 00:00: 23:59 mg total) Me dical 00 :00 by mouth Center daily. carvediloL 2023- Yes 12.5mg Q.5D Take [address] (COREG) 09-24 tablet [facility] 12.5 MG 00:00: 23:59 (12.5 mg Medic al tablet 00 :00 total) by Center mouth 2 (two) times daily. levETIRAcet 2023- Yes 500mg Q.5D Take [address] am (KEPPRA) 09-24 tablet [facility] 500 MG 00:00: 23:59 (500 mg Medical tablet 00 :00 total) by Center mouth 2 (two) times daily. losartan 2023- Yes 50mg QD Take [address] [facility] (COZAAR) 50 1-04 01-04 tablet (50 L ukes MG tablet 00:00: 23:59 mg total) Me dical 00 :00 by mouth Center daily. cloNIDine 2022- No hypertensio .2mg Q.5D Take [address] [facility] HCL 1-04 02-03 n tablet [facility] (CATAPRES) 00:00: 23:59 (0.2 mg Med ical 0.2 MG 00 :00 total) by Center tablet mouth 2 (two) times daily for 30 days. insulin 2022- No 14U QD Inject [address] glargine 1- 02-03 Units [facility] (Lantus 00:00: 23:59 subcutaneo Med ical Solostar 00 :00 usly Center U-100 nightly Insulin) for 30 100 unit/mL days. (3 mL) InPn cloNIDine 2022- Yes hypertensio .2mg Q.5D Take [address] [facility] HCL 09-24 02-03 n tablet [facility] (CATAPRES) 00:00: 23:59 (0.2 mg Med ical 0.2 MG 00 :00 total) by Center tablet mouth 2 (two) times daily for 30 days. insulin 2022- Yes 14U QD Inject [address] [address] glargine - 02-03 Units [facility] (Lantus 00:00: 23:59 subcutaneo Med ical Solostar 00 :00 usly Center U-100 nightly Insulin) for 30 100 unit/mL days. (3 mL) InPn cloNIDine 2022- Yes hypertensio .2mg Q.5D Take [address] [facility] HCL -04 02-03 n tablet [facility] (CATAPRES) 00:00: 23:59 (0.2 mg Med ical 0.2 MG 00 :00 total) by Center tablet mouth 2 (two) times daily for 30 days. insulin 2022- Yes 14U QD Inject [address] [address] glargine 1-04 02-03 Units [facility] (Lantus 00:00: 23:59 subcutaneo Med ical Solostar 00 :00 usly Center U-100 nightly Insulin) for 30 100 unit/mL days. (3 mL) InPn phenytoin 2022- No 90mg Q.[id number] Take [address] [facility] (DILANTIN) 09-24- [id number] capsules [facility] 30 MG ER 00:00: 23:59 3D (90 mg Medica l capsule 00 :00 total) by Center mouth 3 (three) times daily for 2 days. phenytoin 2022- No 90mg Q.[id number] Take [address] [facility] (DILANTIN) 09-24- [id number] capsules [facility] 30 MG ER 00:00: 23:59 3D (90 mg Medica l capsule 00 :00 total) by Center mouth 3 (three) times daily for 2 days. phenytoin 2022- No 90mg Q.[id number] Take [address] [facility] (DILANTIN) 09-24 [id number] capsules [facility] 30 MG ER 00:00: 23:59 3D (90 mg Medica l capsule 00 :00 total) by Center mouth 3 (three) times daily for 2 days. TAKE 1 0 No TABLET BY 9-24 MOUTH ONCE 00:00: DAILY 00 TAKE 1 2021-0 No TABLET BY 9-24 MOUTH ONCE 00:00: DAILY 00 TAKE 1 2021-0 No TABLET BY 9-24 MOUTH ONCE 00:00: [...] Take 25 mg U nivers (COREG) 25 05-14 by mouth 2 ity of mg tablet 14:23: (two) [place] 14 times Medical daily with Branch meals. lovastatin Yes 20mg Take 20 mg U nivers (MEVACOR) 8-24 by mouth ity of 20 mg 14:23: at [place] tablet 14 bedtime. Medical Branch DINA Yes 81mg Take 81 mg Univer s ASPIRIN 8-24 by mouth ity of ORAL 14:23: daily. [place] [address] Medical Branch cloniDINE Yes .2mg Take 0.2 [...] 8-24 by mouth ity of 14:23: daily. [place] [address] Medical Branch DULoxetine Yes 30mg Take 30 mg U nivers 30 mg 8-24 by mouth ity of capsule 14:23: daily. [place] [address] Medical Branch insulin Yes 50U inject 50 [...] by mouth ity of ORAL 14:23: daily. [place] [address] Medical Branch cloniDINE Yes .2mg Take 0.2 [...] 8-24 by mouth ity of 14:23: daily. [place] [address] Medical Branch DULoxetine Yes 30mg Take 30 mg U nivers 30 mg 8-24 by mouth ity of capsule 14:23: daily. [place] [address] Medical Branch insulin Yes 50U inject 50 [...] by mouth ity of ORAL 14:23: daily. [place] [address] Medical Branch cloniDINE Yes .2mg Take 0.2 [...] 8-24 by mouth ity of 14:23: daily. [place] [address] Medical Branch DULoxetine Yes 30mg Take 30 mg U nivers 30 mg 8-24 by mouth ity of capsule 14:23: daily. [place] [address] Medical Branch insulin Yes 50U inject 50 Unive rs glargine,hu 8-24 Units ity of m.rec.anlog 14:23: [place] 14 skin at Medic al bedtime. Branch semaglutide Yes inject Univ ers (OZEMPIC 8-24 under the ity of [place]) 14:23: skin [place] 14 weekly. Medical Branch TAKE 1 0 No 10 TABLET BY 8-12 MOUTH ONCE 00:00: DAILY 00 TAKE 1 2022-0 No 10 TABLET BY 8-12 MOUTH ONCE 00:00: DAILY 00 TAKE 1 2022-0 No 10 TABLET BY 8-12 MOUTH ONCE 00:00: DAILY 00 TAKE 1 2022-0 No 10 TABLET BY 8-12 MOUTH ONCE 00:00: DAILY 00 TAKE 1 2022-0 No TABLET BY 8-10 MOUTH ONCE 00:00: DAILY 00 TAKE 1 2022-0 No TABLET BY 8-10 MOUTH ONCE 00:00: DAILY 00 TAKE 1 2022-0 No TABLET BY 8-10 MOUTH ONCE 00:00: DAILY 00 TAKE 1 2022-0 No TABLET BY 8-10 MOUTH ONCE 00:00: DAILY 00 TAKE 1 2022-0 No 15 TABLET BY 8-09 MOUTH ONCE 00:00: DAILY WITH 00 FOOD TAKE 1 2022-0 No 15 TABLET BY 8-09 MOUTH ONCE 00:00: DAILY WITH 00 FOOD TAKE 1 2022-0 No 15 TABLET BY 8-09 MOUTH ONCE 00:00: DAILY WITH 00 FOOD TAKE 1 2022-0 No 15 TABLET BY 8-09 MOUTH ONCE 00:00: DAILY WITH 00 FOOD TAKE 1 2-0 No 30 CAPSULE BY 8-03 MOUTH ONCE 00:00: DAILY 00 TAKE 1 2022-0 No 30 CAPSULE BY 8-03 MOUTH ONCE 00:00: DAILY 00 TAKE 1 2022-0 No 30 CAPSULE BY 8-03 MOUTH ONCE 00:00: DAILY 00 TAKE 1 2022-0 No 30 CAPSULE BY 8-03 MOUTH ONCE 00:00: DAILY 00 &lt 2022-0 No 15 04-22 00:00: 00 Dose 2022-0 No Unknown 04-22 00:00: 00 TAKE 1 2022-0 No 2 TABLET BY 8 MOUTH TWICE 00:00: DAILY 00 &lt 2022-0 No 20 04-22 00:00: 00 &lt 2022-0 No 8- 00:00: 00 &lt 2022-0 No 8- 00:00: 00 &lt 2022-0 No 15 04-22 00:00: 00 &lt 2022-0 No 15 04-22 00:00: 00 Dose 2022-0 No Unknown 04-22 00:00: 00 TAKE 1 2022-0 No 2 TABLET BY 8- MOUTH TWICE 00:00: DAILY 00 &lt 2022-0 No 20 8 00:00: 00 &lt 2022-0 No 8- 00:00: 00 &lt 2022-0 No 8- 00:00: 00 &lt 2022-0 No 15 8 00:00: 00 &lt 2022-0 No 15 8 [...] 00:00: DAILY 00 &lt 2022-0 No 20 8 00:00: 00 &lt 2022-0 No 8- 00:00: 00 &lt 2022-0 No 8- 00:00: 00 &lt 2022-0 No 15 04-22 00:00: 00 &lt 2022-0 No 2 04-16 00:00: 00 TAKE 1 2022-0 No 5 TABLET BY 7-27 MOUTH ONCE 00:00: DAILY 00 &lt 2022-0 No 2 7 00:00: 00 TAKE 1 2022-0 No 5 TABLET BY 7-27 MOUTH ONCE 00:00: DAILY 00 &lt 2022-0 No 2 7 00:00: 00 TAKE 1 2022-0 No 5 TABLET BY 7-27 MOUTH ONCE 00:00: DAILY 00 &lt 2022-0 No 2 04-16 00:00: 00 TAKE 1 2022-0 No 5 TABLET BY 7-27 MOUTH ONCE 00:00: DAILY 00 &lt 2022-0 No 20 7 00:00: 00 TAKE 1 2022-0 No TABLET [...] No 20 720 00:00: 00 TAKE 1 2022-0 No TABLET BY 7-20 MOUTH TWICE 00:00: DAILY 00 TAKE 1 2022-0 No 15 TABLET BY 7-20 MOUTH ONCE 00:00: DAILY WITH 00 FOOD &lt 2022-0 No 20 720 00:00: 00 TAKE 1 2022-0 No TABLET [...] 2022-0 No 6-27 00:00: 00 TAKE 1 2022-0 No CAPSULE BY 6-24 MOUTH ONCE 00:00: DAILY 00 &lt 2022-0 No 6-24 00:00: 00 Dose 2022-0 No Unknown 6-24 00:00: 00 &lt 2022-0 No 6-24 00:00: 00 TAKE 1 2022-0 No CAPSULE BY 6-24 MOUTH ONCE 00:00: DAILY 00 &lt 2022-0 No 6-24 00:00: 00 Dose 2022-0 No Unknown 6-24 00:00: 00 &lt 2022-0 No 6-24 00:00: 00 TAKE 1 2022-0 No CAPSULE BY 6-24 MOUTH ONCE 00:00: DAILY 00 &lt 2022-0 No 6-24 00:00: 00 Dose 2022-0 No Unknown 6-24 00:00: 00 &lt 2022-0 No 6-24 00:00: 00 TAKE 1 2022-0 No CAPSULE BY 6-24 MOUTH ONCE 00:00: DAILY 00 &lt 2-0 No 6-24 00:00: 00 Dose 2-0 No Unknown 6-24 00:00: 00 &lt 2-0 No 6-24 00:00: 00 doxycycline 2021-0 Yes 100mg Take 100 U [...] 5-16 by mouth ity of 01:04: daily. [place] [address] Medical Branch DULoxetine 2021-0 Yes 30mg Take 30 mg U nivers 30 mg 5-16 by mouth ity of capsule 01:04: daily. [place] [address] Medical Branch insulin 2021-0 Yes 50U inject 50 Unive rs glargine,hu 5-16 Units ity of m.rec.anlog 01:04: [place] 03 skin at Medic al bedtime. Branch semaglutide 0 Yes inject Univ ers (OZEMPIC 5-16 under the ity of [place]) 01:04: skin [place] 03 weekly. Medical Branch doxycycline 2021-0 Yes 100mg [...] 5-16 by mouth ity of 01:04: daily. [place] [address] Medical Branch DULoxetine 2021-0 Yes 30mg Take 30 mg U nivers 30 mg 5-16 by mouth ity of capsule 01:04: daily. [place] [address] Medical Branch insulin 2021-0 Yes 50U inject 50 Unive rs glargine,hu 5-16 Units ity of m.rec.anlog 01:04: [place] ([place] 03 skin at Medic al bedtime. Branch semaglutide Yes inject Univ ers (OZEMPIC 5-16 under the ity of [place]) 01:04: skin [place] 03 weekly. Medical Branch metoclopram 2021- No 10mg 10 mg, Uni vers mali HCl 02-01- Slow IV ity of (REGLAN) 17:45: 16:36 [...] Sat Branch 02/01/22 at 1200, BOBBY doxycycline Yes 100mg Take 100 U nivers 100 mg EC 5-14 mg by ity of tablet 13:01: mouth 2 [place] 40 (two) Medical times Branch daily. vitamin Yes 500ug Take 500 Unive rs B-12 (B-12 5-14 mcg by ity of DOTS) 500 13:01: mouth [place] mcg tablet 40 daily. Medical Branch glipiZIDE 5 0 Yes 5mg Take 5 mg U nivers mg tablet 5-14 by mouth ity of 13:01: daily. [place] [address] Medical Branch DULoxetine Yes 30mg Take 30 mg U nivers 30 mg 5-14 by mouth ity of capsule 13:01: daily. [place] [address] Medical Branch insulin 0 Yes 50U inject 50 Unive rs glargine,hu 5-14 Units ity of m.rec.anlog 13:01: [place] ([place] 40 skin at Medic al bedtime. Branch semaglutide 2022-0 Yes inject Univ ers (OZEMPIC 5-14 under the ity of [place]) 13:01: skin [place] 40 weekly. Medical Branch loratadine 2021- No 10mg Take 10 mg Univers 10 mg 5-14 05-14 by mouth ity of tablet 10:57: 00:00 daily. [place] 42 :00 Medical Branch cloniDINE 2021-0 Yes .2mg Take 0.2 Univ ers (CATAPRES) 5-14 mg by ity of 0.2 mg 10:53: mouth 3 [place] tablet 30 (three) Medical times Branch daily. cloniDINE 2021-0 Yes .2mg Take 0.2 Univ ers (CATAPRES) 5-14 mg by ity of 0.2 mg 10:53: mouth 3 [place] tablet 30 (three) Medical times Branch daily. cloniDINE 2021-0 Yes .2mg Take 0.2 Univ ers (CATAPRES) 5-14 mg by ity of 0.2 mg 10:53: mouth 3 [place] tablet 30 (three) Medical times Branch daily. metFORMIN 2021- No 1000mg Take 1,000 Univers (FORTAMET) 5-14 05-14 mg by ity of 1,000 mg 24 10:52: 00:00 mouth 2 [place] hr tablet 08 :00 (two) Medical times Branch daily with meals. meloxicam 2021- No 15mg Take 15 mg U nivers 15 mg 5-14 05-14 by mouth ity of tablet 10:51: 00:00 daily. [place] 53 :00 Medical Branch lisinopril- 2021- No 2{tbl} Take 2 U nivers hydrochloro 5-14 05-14 tablets by i ty of thiazide 10:51: 00:00 mouth [place] (PRINZIDE,Z 31 :00 daily. Medica l ESTORETIC) Branch 20-12.5 mg per tablet ondansetron 2021-0 Yes [id number] 4mg Take 1 Univers 4 mg 5-14 tablet by ity of disintegrat 00:00: mouth [place] ing tablet 00 every 8 Medica l (eight) Branch hours as needed for Nausea and Vomiting (N/V). ondansetron 2021-0 Yes [id number] 4mg Take 1 Univers 4 mg 5-14 tablet by ity of disintegrat 00:00: mouth [place] ing tablet 00 every 8 Medica l (eight) Branch hours as needed for Nausea and Vomiting (N/V). ondansetron 2021-0 Yes [id number] 4mg Take 1 [facility] 4 mg 5-14 tablet by ity of disintegrat 00:00: mouth [place] ing tablet 00 every 8 [facility]ica l (eight) Branch hours as needed for Nausea and Vomiting (N/V). ondansetron 2021-0 Yes [id number] 4mg Take 1 [facility] 4 mg 5-14 tablet by ity of disintegrat 00:00: mouth [place] ing tablet 00 every 8 [facility] l (eight) Branch hours as needed for Nausea and Vomiting (N/V). ondansetron 2021-0 Yes [id number] 4mg Take 1 [facility] 4 mg 5-14 tablet by ity of disintegrat 00:00: mouth [place] ing tablet 00 every 8 Medica l (eight) Branch hours as needed for Nausea and Vomiting (N/V). ondansetron 2021-0 Yes [id number] 4mg Take 1 [facility] 4 mg 5-14 [...] 2022-0 No Unknown 3-23 00:00: 00 Dose 2021-0 No Unknown 3-23 00:00: 00 Lantus 2020-09 No (3 mL) Solostar 2-30 U-100 00:00: Insulin 100 00 unit/mL (3 mL) subcutaneou s pen lovastatin 2020-09 No 1mg 20 mg 2-30 tablet 00:00: 00 glipizide 5 2020-09 No 1mg mg tablet 2-30 00:00: 00 Dose 2020- No Unknown 2-30 00:00: 00 duloxetine 2020-09 No 1mg 30 mg 2-30 capsule,del 00:00: ayed 00 release Lantus 2020-09 No (3 mL) Solostar 2-30 U-100 00:00: Insulin 100 00 unit/mL (3 mL) subcutaneou s pen lovastatin 2020-09 No 1mg 20 mg 2-30 tablet 00:00: 00 glipizide 5 2020-09 No 1mg mg tablet 2-30 00:00: 00 Dose 2020-09 No Unknown 2-30 00:00: 00 duloxetine 2020-09 No 1mg 30 mg 2-30 capsule,del 00:00: ayed 00 release Lantus 2020-09 No (3 mL) Solostar 2-30 U-100 00:00: Insulin 100 00 unit/mL (3 mL) subcutaneou s pen lovastatin 2020-09 No 1mg 20 mg 2-30 tablet 00:00: 00 glipizide 5 2020-09 No 1mg mg tablet 2-30 00:00: 00 carvedilol 2020-09 No 1mg 25 mg 2-30 tablet 00:00: 00 Lantus 2020-09 No (3 mL) Solostar 2-30 U-100 00:00: Insulin 100 00 unit/mL (3 mL) subcutaneou s pen lovastatin 2020-09 No 1mg 20 mg 2-30 tablet 00:00: 00 glipizide 5 2020-09 No 1mg mg tablet 2-30 00:00: 00 Dose 2020-1 No Unknown 2-30 00:00: 00 duloxetine 2020-09 No 1mg 30 mg 2-30 capsule,del 00:00: ayed 00 release duloxetine 2020-09 No 1mg 30 mg 2-30 capsule,del 00:00: ayed 00 release lovastatin 2020- No 1mg 20 mg 2-13 tablet 00:00: 00 glipizide 5 2020-1 No 1mg mg tablet 2-13 00:00: 00 lovastatin 2020-1 No 1mg 20 mg 2-13 tablet 00:00: 00 glipizide 5 2020- No 1mg mg tablet 2-13 00:00: 00 lovastatin 2020-1 No 1mg 20 mg 2-13 tablet 00:00: 00 glipizide 5 2020-1 No 1mg mg tablet 2-13 00:00: 00 lovastatin 2020- No 1mg 20 mg 2-13 tablet 00:00: 00 glipizide 5 2020- No 1mg mg tablet 2-13 00:00: 00 glipizide 5 2020-1 No 1mg mg tablet 0-28 00:00: 00 lovastatin 2020- No 1mg 20 mg 0-28 tablet 00:00: [...] 10 mg 0-28 tablet 00:00: 00 carvedilol 2020-1 No 1mg 25 mg 0-28 tablet 00:00: 00 glipizide 5 2020-1 No 1mg mg tablet 0-28 00:00: 00 lovastatin 2020-1 No 1mg 20 mg 0-28 tablet 00:00: 00 loratadine 2020-1 No 1mg 10 mg 0-28 tablet 00:00: 00 Dose 2021-1 No Unknown 0-28 00:00: 00 loratadine 2021-0 No 1mg 10 mg 8-03 tablet 00:00: 00 lovastatin 2021-0 No 1mg 20 mg 8-03 tablet 00:00: 00 amlodipine 2021-0 No 1mg 5 mg tablet 04-23 00:00: 00 glipizide 5 2021-0 No 1mg mg tablet 04-23 00:00: 00 carvedilol 2021-0 No 1mg 25 mg 8-03 tablet 00:00: 00 loratadine 2021-0 No 1mg 10 mg 8-03 tablet 00:00: 00 lovastatin 2021-0 No 1mg 20 mg 8-03 tablet 00:00: 00 amlodipine 2021-0 No 1mg 5 mg tablet 04-23 00:00: 00 glipizide 5 1-0 No 1mg mg tablet 04-23 00:00: 00 carvedilol 2021-0 No 1mg 25 mg 8-03 tablet 00:00: 00 loratadine 2021-0 No 1mg 10 mg 8- tablet 00:00: 00 lovastatin 2021-0 No 1mg 20 mg 8- tablet 00:00: 00 amlodipine 2021-0 No 1mg 5 mg tablet 04-23 00:00: 00 glipizide 5 1-0 No 1mg mg tablet 04-23 00:00: 00 carvedilol 2021-0 No 1mg 25 mg 8- tablet 00:00: 00 loratadine 2021-0 No 1mg 10 mg 8- tablet 00:00: 00 lovastatin 2021-0 No 1mg 20 mg 8- tablet 00:00: 00 amlodipine 2021-0 No 1mg 5 mg tablet 04-23 00:00: 00 glipizide 5 1-0 No 1mg mg tablet 04-23 00:00: 00 carvedilol 2021-0 No 1mg 25 mg 8-03 tablet 00:00: 00 Lantus 1-0 No (3 mL) Solostar 7-01 U-100 00:00: Insulin 100 00 unit/mL (3 mL) subcutaneou s pen Lantus 1-0 No (3 mL) Solostar 7-01 U-100 00:00: Insulin 100 00 unit/mL (3 mL) subcutaneou s pen Lantus 2021-0 No (3 mL) Solostar 7-01 U-100 00:00: Insulin 100 00 unit/mL (3 mL) subcutaneou s pen Lantus 1-0 No (3 mL) Solostar 7-01 U-100 00:00: Insulin 100 00 unit/mL (3 mL) subcutaneou s pen Novolin N 1-0 No unit/mL NPH U-100 6-30 Insulin 00:00: isophane 00 100 unit/mL subcutaneou s susp glipizide 5 2020-0 No 1mg mg tablet 30 00:00: 00 amlodipine 1-0 No 1mg 5 mg tablet 30 00:00: 00 lovastatin 2021-0 No 1mg 20 mg 6-30 tablet 00:00: 00 meloxicam 2021-0 No 1mg 15 mg 6-30 tablet 00:00: 00 loratadine 1-0 No 1mg 10 mg 6-30 tablet 00:00: 00 vitamin B12 1-0 No 1mg 0.5 6-30 mg-folic 00:00: acid 1 mg 00 tablet carvedilol 1-0 No 1mg 25 mg 6-30 tablet 00:00: 00 Novolin N 2021-0 No unit/mL NPH U-100 6-30 Insulin 00:00: isophane 00 100 unit/mL subcutaneou s susp glipizide 5 2020-0 No 1mg mg tablet 03-20 00:00: 00 amlodipine 1-0 No 1mg 5 mg tablet 30 00:00: 00 lovastatin 2021-0 No 1mg 20 mg 6-30 tablet 00:00: 00 meloxicam 2021-0 No 1mg 15 mg 6-30 tablet 00:00: 00 loratadine 2021-0 No 1mg 10 mg 6-30 tablet 00:00: 00 vitamin B12 2021-0 No 1mg 0.5 6-30 mg-folic 00:00: acid 1 mg 00 tablet carvedilol 2021-0 No 1mg 25 mg 6-30 tablet 00:00: 00 Novolin N 2021-0 No unit/mL NPH U-100 6-30 Insulin 00:00: isophane 00 100 unit/mL subcutaneou s susp glipizide 5 2020-0 No 1mg mg tablet 630 00:00: 00 amlodipine 2021-0 No 1mg 5 mg tablet 630 00:00: 00 lovastatin 2021-0 No 1mg 20 mg 6-30 tablet 00:00: 00 meloxicam 2021-0 No 1mg 15 mg 6-30 tablet 00:00: 00 loratadine 2021-0 No 1mg 10 mg 6-30 tablet 00:00: 00 vitamin B12 1-0 No 1mg 0.5 6-30 mg-folic 00:00: acid 1 mg 00 tablet carvedilol 1-0 No 1mg 25 mg 6-30 tablet 00:00: 00 Novolin N 1-0 No unit/mL NPH U-100 6-30 Insulin 00:00: isophane 00 100 unit/mL subcutaneou s susp glipizide 5 2020-0 No 1mg mg tablet 30 00:00: 00 amlodipine 1-0 No 1mg 5 mg tablet 30 00:00: 00 lovastatin 2021-0 No 1mg 20 mg 6-30 tablet 00:00: 00 meloxicam 1-0 No 1mg 15 mg 6-30 tablet 00:00: 00 loratadine 1-0 No 1mg 10 mg 6-30 tablet 00:00: 00 vitamin B12 1-0 No 1mg 0.5 6-30 mg-folic 00:00: acid 1 mg 00 tablet carvedilol 1-0 No 1mg 25 mg 6-30 tablet 00:00: 00 fluticasone 1-0 Yes [id number] 1 spray Univers propionate 6-12 each ity of 50 00:00: nostril [place] mcg/actuati 00 twice a Medic al on nasal day for 5 Branch spray days then daily fluticasone 1-0 Yes [id number] 1 spray Univers propionate 6-12 each ity of 50 00:00: nostril [place] mcg/actuati 00 twice a Medic al on nasal day for 5 Branch spray days then daily fluticasone 2021-0 Yes [id number] 1 spray Univers propionate 6-12 each ity of 50 00:00: nostril [place] mcg/actuati 00 twice a Medic al on nasal day for 5 Branch spray days then daily fluticasone 2020-0 Yes [id number] 1 spray Univers propionate 6-12 each ity of 50 00:00: nostril [place] mcg/actuati 00 twice a Medic al on nasal day for 5 Branch spray days then daily fluticasone 2020-0 Yes [id number] 1 spray Univers propionate 6-12 each ity of 50 00:00: nostril [place] mcg/actuati 00 twice a Medic al on nasal day for 5 Branch spray days then daily fluticasone 2020-0 Yes [id number] 1 spray Univers propionate 6-12 each ity of 50 00:00: nostril [place] mcg/actuati 00 twice a Medic al on nasal day for 5 Branch spray days then daily fluticasone 2020-0 Yes [id number] 1 spray Univers propionate 6-12 each ity [...] narcotic Indication s: cough fluticasone 2020-0 Yes [id number] 1 spray Univers propionate 6-12 each ity [...] Novolin N 2020-0 No unit/mL NPH U-100 10-23 Insulin 00:00: isophane 00 100 unit/mL subcutaneou s susp glipizide 5 2020-0 No 1mg mg tablet 2-02 00:00: 00 Novolin N 2021-0 No unit/mL [...] amlodipine 2020-0 No 1mg 5 mg tablet 820 00:00: 00 amlodipine 2020-0 No 1mg 5 [...] amlodipine 2020-0 No 1mg 5 mg tablet 729 00:00: 00 carvedilol 2020-0 No 1mg 25 mg 7-29 tablet 00:00: 00 clonidine 2020-0 No 1mg HCl 0.2 mg 7-29 tablet 00:00: 00 lovastatin 2020-0 No 1mg 20 mg 7-29 tablet 00:00: 00 amlodipine 2020-0 No 1mg 5 mg tablet 7- 00:00: 00 carvedilol 2020-0 No 1mg 25 [...] amlodipine 2020-0 No 1mg 5 mg tablet 4-29 00:00: 00 glipizide 5 2020-0 No 1mg mg tablet 4- 00:00: 00 carvedilol 2020-0 No 1mg 25 mg 4-29 tablet 00:00: 00 clonidine 2020-0 No 1mg HCl 0.2 mg 4-29 tablet 00:00: 00 lovastatin 2020-0 No 1mg 20 mg 4-29 tablet 00:00: 00 amlodipine 2020-0 No 1mg 5 mg tablet 4-29 00:00: 00 glipizide 5 2020-0 No 1mg mg tablet 4- 00:00: 00 carvedilol 2020-0 No 1mg 25 mg 4-29 tablet 00:00: 00 clonidine 2020-0 No 1mg HCl 0.2 mg 4-29 tablet 00:00: 00 lovastatin 2020-0 No 1mg 20 mg 4-29 tablet 00:00: 00 amlodipine 2020-0 No 1mg 5 mg tablet 4-29 00:00: 00 glipizide 5 2020-0 No 1mg mg tablet 4-29 00:00: 00 carvedilol 2020-0 No 1mg 25 [...] No 1mg mg tablet 3-03 00:00: 00 loratadine 2020-0 No 1mg 10 mg 3-03 tablet 00:00: 00 lovastatin 2020-0 No 1mg 20 mg 3-03 tablet 00:00: 00 amlodipine 2020-0 No 1mg 5 mg tablet 3-03 00:00: 00 glipizide 5 2020-0 No 1mg mg tablet 3-03 00:00: 00 carvedilol 2020-0 No 1mg 25 mg 3-03 tablet 00:00: 00 clonidine 2020-0 No 1mg HCl 0.2 mg 3-03 tablet 00:00: 00 carvedilol 2020-0 No 1mg 25 [...] No 1mg mg tablet 124 00:00: 00 amlodipine 2020-0 No 1mg 5 [...] No 1mg mg tablet 124 00:00: 00 vitamin B12 2020-0 No 1mg 0.5 1-24 mg-folic 00:00: acid 1 mg 00 tablet carvedilol 2020-0 No 1mg 25 mg 1-24 tablet 00:00: 00 clonidine 2020-0 No 1mg HCl 0.2 mg 1-24 tablet 00:00: 00 glipizide 5 2020-0 No 1mg mg tablet 124 00:00: 00 amlodipine 2020-0 No 1mg 5 [...] mg 1-24 tablet 00:00: 00 glipizide 5 No 1mg mg tablet 1-24 00:00: 00 metFORMIN Yes 1000mg Take 1,000 Univers (FORTAMET) [...] of ORAL 19:20: daily. Medical Branch cloniDINE 2018- Yes .2mg Take [...] by mouth ity of tablet 19:20: daily. [place] [id number] Medical Branch loratadine Yes 10mg Take 10 mg U nivers 10 mg 5-05 by mouth ity of tablet 19:20: daily. [place] [address] Medical Branch metFORMIN Yes 1000mg Take 1,000 [...] of ORAL 19:20: daily. Medical Branch cloniDINE Yes .2mg Take 0.2 [...] mg 02 for Medical capsule [facility]ies. [facility] Take 1 Un óscar drochloroth [...] mg 02 for Medical capsule All[facility]ies. [facility] 1{tbl} Take 1 Un óscar drochloroth [...] mg 02 for Medical capsule Allergies. [facility] Yes 1{tbl} Take 1 Un óscar drochloroth 5-05 tablet by ity of iazide 14:20: mouth [place] 100-25 mg 02 daily. Medical per tablet Branch metFORMIN Yes 1000mg Take 1,000 Univers [...] by mouth ity of ORAL 14:20: daily. [place] [address] Medical Branch cloniDINE 2018- Yes .2mg Take [...] by mouth ity of tablet 14:20: daily. [place] [facility] loratadine Yes 10mg Take 10 mg U nivers 10 mg 5-05 by mouth ity of tablet 14:20: daily. [place] [facility] carvedilol Yes 25mg Take 25 mg U nivers (COREG) 25 5-05 by mouth 2 ity of mg tablet 14:20: (two) [place] 02 times Medical daily with Branch meals. Immunizations Ordered Filled Immunization Date Status Comments [facility] e Immunization Name Name SARS-COV-2 COVID-19 2021-09-08 Completed Unive rsity of MODERNA VACCINE 00:00:00 [facility] SARS-COV-2 COVID-19 2021-09-08 Completed Unive rsity of MODERNA VACCINE 00:00:00 [facility] SARS-COV-2 COVID-19 2021-09-08 Completed Unive rsity of MODERNA VACCINE 00:00:00 [facility] Moderna COVID-19 2020-11-27 Completed Vaccine 00:00:00 Moderna COVID-19 2020-11-27 Completed Vaccine 00:00:00 Moderna COVID-19 2020-11-27 Completed Vaccine 00:00:00 Moderna COVID-19 2020-11-27 Completed Vaccine 00:00:00 SARS-COV-2 COVID-19 2020-11-27 Completed Unive rsity of MODERNA VACCINE 00:00:00 [facility] SARS-COV-2 COVID-19 2020-11-27 Completed Unive rsity of MODERNA VACCINE 00:00:00 [facility] SARS-COV-2 COVID-19 2020-11-27 Completed Unive rsity of MODERNA VACCINE 00:00:00 [facility] Moderna COVID-19 2020-10-29 Completed Vaccine 00:00:00 Moderna COVID-19 2020-10-29 Completed Vaccine 00:00:00 Moderna COVID-19 2020-10-29 Completed Vaccine 00:00:00 Moderna COVID-19 2020-10-29 Completed Vaccine 00:00:00 SARS-COV-2 COVID-19 2020-10-29 Completed Unive rsity of MODERNA VACCINE 00:00:00 [facility] SARS-COV-2 COVID-19 2020-10-29 Completed Unive rsity of MODERNA VACCINE 00:00:00 [facility] SARS-COV-2 COVID-19 2020-10-29 Completed Unive rsity of MODERNA VACCINE 00:00:00 [facility] Pneumococcal 2020-08-09 Completed University o f Polysaccharide, 00:00:00 [place] [facility] ical PPSV23 (PNEUMOVAX) Branch Pneumococcal 2020-08-09 Completed University o f Polysaccharide, 00:00:00 [place] [facility] ical PPSV23 (PNEUMOVAX) Branch Pneumococcal 2020-08-09 Completed University o f Polysaccharide, 00:00:00 [place] [facility] ical PPSV23 (PNEUMOVAX) Branch Influenza Virus 2020-08-08 Completed Universit y of Vaccine Quad IM 3+ 00:00:00 [facility] Influenza Virus 2020-08-08 Completed Universit y of Vaccine Quad IM 3+ 00:00:00 [facility] Influenza Virus 2020-08-08 Completed Universit y of Vaccine Quad IM 3+ 00:00:00 [facility] Vital Signs Vital Name Observation Time Observation Value Comments Source HEIGHT 2022-09-23 21:07:00 170.2 cm WEIGHT 2022-09-23 21:07:00 104.4 kg WEIGHT 2022-09-21 13:00:00 101.6 kg HEIGHT 2022-09-14 02:00:00 167.6 cm WEIGHT 2022-09-14 02:00:00 96 kg HEIGHT 2022-09-23 21:07:00 170.2 cm WEIGHT 2022-09-23 21:07:00 104.4 kg WEIGHT 2022-09-21 13:00:00 101.6 kg HEIGHT 2022-09-14 02:00:00 167.6 cm WEIGHT 2022-09-14 02:00:00 96 kg HEIGHT 2022-09-23 21:07:00 170.2 cm WEIGHT 2022-09-23 21:07:00 104.4 kg WEIGHT 2022-09-21 13:00:00 101.6 kg HEIGHT 2022-09-14 02:00:00 167.6 cm WEIGHT 2022-09-14 02:00:00 96 kg Systolic blood 2022-05-14 16:58:00 171 mm[Hg] Univer sity of pressure [facility] Diastolic blood 2022-05-14 16:58:00 75 mm[Hg] Unive rsity of pressure [facility] Heart rate 2022-05-14 16:50:00 50 /min Universi ty [facility] [place] [facility] Respiratory rate 2022-05-14 16:50:00 23 /min Univ ersity of [place] [facility] Oxygen saturation in 2022-05-14 16:50:00 99 /min University of Arterial blood by [place] [employer] meghana Pulse oximetry Branch Body temperature 2022-05-14 16:13:00 36.56 Radha Univ [facility] [place] [facility] Body height 2022-05-14 15:20:00 167.6 cm [facility] [place] [facility] Body weight 2022-05-14 15:20:00 109.3 kg [facility] [place] [facility] BMI 2022-05-14 15:20:00 38.89 kg/m2 [facility] [place] [facility] Body height 2022-05-14 15:20:00 167.6 cm [facility] [place] [facility] Body weight 2022-05-14 15:20:00 109.3 kg [facility] [place] [facility] BMI 2022-05-14 15:20:00 38.89 kg/m2 [facility] [place] [facility] Systolic blood 2022-05-14 14:40:00 180 mm[Hg] Univer sity of pressure [place] [facility] Diastolic blood 2022-05-14 14:40:00 63 mm[Hg] Unive rsity of pressure [place] [facility] Heart rate 2022-05-14 14:35:00 53 /min [facility] [place] [facility] Body temperature 2022-05-14 14:35:00 36.28 Radha Univ [facility] [place] [facility] Respiratory rate 2022-05-14 14:35:00 18 /min Univ ersity [facility] [place] [facility] Oxygen saturation in 2022-05-14 14:35:00 100 /min University of Arterial blood by [facility] Pulse oximetry Branch Systolic blood 2022-02-01 17:58:00 122 mm[Hg] Univer sity of pressure [place] [facility] Diastolic blood 2022-02-01 17:58:00 75 mm[Hg] Unive rsity of pressure [place] [facility] Heart rate 2022-02-01 17:58:00 61 /min [facility]i ty [facility] [place] [facility] Respiratory rate 2022-02-01 17:58:00 16 /min Univ ersity [facility] [place] [facility] Oxygen saturation in 2022-02-01 17:58:00 99 /min University of Arterial blood by [facility] meghana Pulse oximetry Branch Body temperature 2022-02-01 15:48:00 37.33 Radha [facility] ersity of [facility] Body height 2022-02-01 15:48:00 167.6 cm Universi ty [facility] [place] [facility] [place] Body weight 2022-02-01 15:48:00 109.317 kg Universi ty [facility] [place] [facility] [place] BMI 2022-02-01 15:48:00 38.90 kg/m2 Universi ty of [facility] Systolic blood 2021-03-02 23:37:00 155 mm[Hg] Univer sity of pressure [facility] Diastolic blood 2021-03-02 23:37:00 89 mm[Hg] Unive rsity of pressure [facility] Heart rate 2021-03-02 23:37:00 64 /min Universi ty of [facility] Respiratory rate 2021-03-02 23:37:00 18 /min [facility] in 2021-03-02 23:37:00 95 /min University Arterial blood by [facility] Pulse oximetry Branch Body temperature 2021-03-02 23:33:00 37.17 Radha [facility] ersity of [facility] Body height 2021-03-02 23:33:00 167.6 cm Universi ty of [facility] Body weight 2021-03-02 23:33:00 112.946 kg Universi ty of [facility] BMI 2021-03-02 23:33:00 40.19 kg/m2 Universi ty [facility] [place] [facility] Systolic blood 2022-09-25 11:13:00 123 mm[Hg] [facility] Diastolic blood 2022-09-25 11:13:00 60 mm[Hg] [facility] S t [facility] Heart rate 2022-09-25 11:13:00 58 /min [facility] Body temperature 2022-09-25 11:13:00 36.67 Radha [facility] Respiratory rate 2022-09-25 11:13:00 18 /min [facility] Oxygen saturation in 2022-09-25 11:13:00 100 /min [facility] Arterial blood by Medical nter Pulse oximetry Body height 2022-09-23 21:07:00 170.2 cm [facility] Body weight 2022-09-23 21:07:00 104.4 kg [facility] BMI 2022-09-23 21:07:00 36.05 kg/m2 [facility] BP Systolic 2022-08-11 11:33:00 228 mm[Hg] BP [...] Date / Time Performing Clinician Source Performed POCT-GLUCOSE METER 2022-09-25 11:17:00 Claudia Skelton [facility] POCT-GLUCOSE METER 2022-09-25 07:59:00 Claudia Skelton [facility] MAGNESIUM 2022-09-25 04:54:00 Holsusanne [facility] BASIC METABOLIC PANEL 2022-09-25 04:54[facility]00 [facility] 2022-09-25 04:54[facility] 2022-09-25 04:54[facility] 2022-09-24 [facility] 2022-09-24 16:21[facility] 2022-09-24 12:22:00 Aamir, [facility] POCT-GLUCOSE METER 2022-09-24 07:28:00 Massumi, [facility] MAGNESIUM 2022-09-24 05:17:00 Holtman, [facility] BASIC METABOLIC PANEL 2022-09-24 05:17:00 Holtman, [facility] CBC (HEMOGRAM ONLY) 2022-09-24 05:17:00 Holtman, [facility] PHOSPHORUS 2022-09-24 05:17:00 Holtman, [facility] PHENYTOIN LEVEL, TOTAL 2022-09-24 05:17:00 Holtman, [facility] POCT-GLUCOSE METER 2022-09-23 20:24:00 Massumi, [facility] POCT-GLUCOSE METER 2022-09-23 16:08:00 Massumi, [facility] POCT-GLUCOSE METER 2022-09-23 11:18:00 Massumi, [facility] POCT-GLUCOSE METER 2022-09-23 09:13[facility] 2022-09-23 07:44:00 Massumi, [facility] MAGNESIUM 2022-09-23 03:56:00 Holtman, [facility] BASIC METABOLIC PANEL 2022-09-23 03:56:00 Holtman, [facility] CBC (HEMOGRAM ONLY) 2022-09-23 03:56:00 Holtman, [facility] PHOSPHORUS 2022-09-23 03:56:00 Holtman, [facility] POCT-GLUCOSE METER 2022-09-22 21:04:00 Massumi, [facility] SARS-COV2/RT-PCR ([facility] & 2022-09-22 20:13:00 Ritchie Graham [facility] REF LABS) [place] POCT-GLUCOSE METER 2022-09-22 15:53:00 [facility] POCT-GLUCOSE METER 2022-09-22 11:33:00 [facility] MR BRAIN WITH & WITHOUT 2022-09-22 10:18:00 Femi Duvall [facility] IV CONTRAST Center POCT-GLUCOSE METER 2022-09-22 08:23:00 [facility] 2022-09-22 04:28[facility]00 [facility] 2022-09-22 04:28:00 [facility] CBC (HEMOGRAM ONLY) 2022-09-22 04:28[facility]00 [facility]22-[facility]-22 04:28[facility]00 [facility] PO[facility]-GLUCOSE METER 2022-09-22 00:13:00 [facility] PHENYTOIN LEVEL, TOTAL 2022-09-21 19:20:00 Allison Tee [facility] Radha [place] BASIC METABOLIC PANEL 2022-09-21 19:20:00 [facility] MAGNESIUM 2022-09-21 19:20:00 [facility] PHOSPHORUS 2022-09-21 19:20:00 [facility] POCT-GLUCOSE METER 2022-09-21 13:34:00 [facility] TISSUE EXAM 2022-09-21 11:03:00 Smith Connors [facility] CRANIECTOMY OR 2022-09-21 08:36:00 Smith Connors [facility] CRANIOTOMY, FOR HEMATOMA Center EVACUATION POCT-GLUCOSE METER 2022-09-21 08:03:00 [facility] MAGNESIUM 2022-09-21 06:02:00 [facility]OL[facility] 2022-09-21 06:02:00 [facility] CBC (HEMOGRAM ONLY) 2022-09-21 06:02:00 [facility] 2022-09-21 06:02:00 [facility] PO[facility]-GLUCOSE METER 2022-09-20 21:05:00 [facility] POCT-GLUCOSE METER 2022-09-20 16:42:00 [facility] ECG 12-LEAD 2022-09-20 16:14:47 Unknown, Hl7 Doctor [facility] PROTHROMBIN TIME/INR 2022-09-20 15:55:00 [facility] APTT 2022-09-20 15:55:00 [facility] TYPE AND SCREEN, 2022-09-20 15:55:00 [facility] AUTOMATED [place] SARS-COV2/RT-PCR ([facility] & 2022-09-20 15:09:00 [facility] REF LABS) Center XR CHEST 1 VIEW PORTABLE 2022-09-20 12:34:00 [facility] / BEDSIDE Center POCT-GLUCOSE METER 2022-09-20 11:57:00 [facility] POCT-GLUCOSE METER 2022-09-20 08:12:00 [facility] MAGNESIUM 2022-09-20 06:26:00 [facility]OLIC [facility]EL 2022-09-20 06:26:00 [facility] CBC (HEMOGRAM ONLY) 2022-09-20 06:26:00 Holjama [facility] PHOSPHORUS 2022-09-20 06:26:00 [facility] 2022-09-19 21:18:00 [facility] POCT-GLUCOSE METER 2022-09-19 17:23:00 [facility] POCT-GLUCOSE METER 2022-09-19 12:19:00 [facility] POCT-GLUCOSE METER 2022-09-19 07:29:00 [facility] MAGNESIUM 2022-09-19 05:33:00 [facility] 2022-09-19 05:33:00 [facility] 2022-09-19 05:33:00 [facility] PHOSPHORUS 2022-09-19 05:33:00 [facility] POCT-GLUCOSE METER 2022-09-18 21:11:00 [facility] POCT-GLUCOSE METER 2022-09-18 18:03:00 [facility] POCT-GLUCOSE METER 2022-09-18 17:09:00 [facility] POCT-GLUCOSE METER 2022-09-18 13:06:00 [facility] POCT-GLUCOSE METER 2022-09-18 07:44:00 [facility] MAGNESIUM 2022-09-18 06:13:00 [facility] 2022-09-18 06:13:00 [facility] ONLY[facility] 2022-09-18 06:13:00 [facility] PHOSPHORUS 2022-09-18 06:13:00 [facility] POCT-GLUCOSE METER 2022-09-18 01:04:00 [facility] POCT-GLUCOSE METER 2022-09-17 21:10:00 [facility] POCT-GLUCOSE METER 2022-09-17 16:38:00 [facility] POCT-GLUCOSE METER 2022-09-17 11:00:00 [facility] POCT-GLUCOSE METER 2022-09-17 06:11:00 [facility]-09-17 05:03:00 [facility] [place] ECG 12-LEAD 2022-09-17 04:56:19 [facility] MAGNESIUM 2022-09-17 04:20:00 [facility] BASIC METABOLIC PANEL 2022-09-17 04:20:00 [facility] CBC (HEMOGRAM ONLY) 2022-09-17 04:20:00 [facility] PHOSPHORUS 2022-09-17 04:20:00 [facility] POCT-GLUCOSE METER 2022-09-16 21:17:00 [facility] POCT-GLUCOSE METER 2022-09-16 16:49:00 Benito Pretty [facility] 2D ECHO W/ DOPPLER 2022-09-16 12:45:56 Ana María Rodriguez [facility] (CW/PW/COLOR) [employer] POCT-GLUCOSE METER 2022-09-16 11:03:00 Benito Pretty [facility] ECG 12-LEAD 2022-09-16 10:23:59 Michael Ana María [facility] POCT-GLUCOSE METER 2022-09-16 06:49:00 Alexey Berry In [facility] MAGNESIUM 2022-09-16 02:21[facility]00 [facility] BASIC METABOLIC PANEL 2022-09-16 02:21:00 [facility] CBC (HEMOGRAM ONLY) 2022-09-16 02:21:00 [facility] HEPATIC FUNCTION PANEL 2022-09-16 02:21:00 Alexey Berry In [facility] PHOSPHORUS 2022-09-16 02:21:00 [facility] POCT-GLUCOSE METER 2022-09-15 22:35:00 Benito Pretty [facility] SARS-COV2/RT-PCR ([facility] & 2022-09-15 17:49:00 Ritchie Graham [facility] REF LABS) [place] POCT-GLUCOSE METER 2022-09-15 16:13:00 Benito Pretty [facility] POCT-GLUCOSE METER 2022-09-15 11:17:00 Alexey Berry [facility] BASIC METABOLIC PANEL 2022-09-15 09:06:00 Rosa M Majano [facility] POCT-GLUCOSE METER 2022-09-15 07:37:00 Benito Pretty [facility] POCT-GLUCOSE METER 2022-09-15 06:15:00 Benito Pretty [facility] POCT-GLUCOSE METER 2022-09-15 05:40:00 Benito Pretty [facility] CBC W/PLT COUNT & AUTO 2022-09-15 05:38:00 Rosa M Majano [facility] CBC W/PLT COUNT & AUTO 2022-09-15 05:38:00 Dalila [facility] BASIC METABOLIC PANEL 2022-09-15 05:34:00 [facility] POCT-GLUCOSE METER 2022-09-15 03:37:00 Benito Pretty I. [facility] POCT-GLUCOSE METER 2022-09-15 01:53:00 Benito Pretty I. [facility] BASIC METABOLIC PANEL 2022-09-15 00:39:00 Gretel [facility] POCT-GLUCOSE METER 2022-09-15 00:38:00 Benito Pretty I. [facility] POCT-GLUCOSE METER 2022-09-14 23:21:00 Benito Pretty I. [facility] POCT-GLUCOSE METER 2022-09-14 22:11:00 Benito Pretty I. [facility] BASIC METABOLIC PANEL 2022-09-14 20:53:00 Gretel [facility] POCT-GLUCOSE METER 2022-09-14 20:52:00 Benito Pretty I. [facility] POCT-GLUCOSE METER 2022-09-14 19:04:00 Benito Pretty I. [facility] POCT-GLUCOSE METER 2022-09-14 17:51:00 Benito Pretty I. [facility] POCT-GLUCOSE METER 2022-09-14 16:15:00 Benito Pretty I. [facility] BASIC METABOLIC PANEL 2022-09-14 15:19:00 Gretel [facility] POCT-GLUCOSE METER 2022-09-14 14:33:00 Benito Pretty I. [facility] MR BRAIN WITH & WITHOUT 2022-09-14 14:13:00 Benito Pretty I. [facility] POCT-GLUCOSE METER 2022-09-14 12:12:00 Benito Pretty I. [facility] POCT-GLUCOSE METER 2022-09-14 11:20:00 Benito Pretty I. [facility] BASIC METABOLIC PANEL 2022-09-14 11:15:00 Rosa M Majano [facility] HEMOGLOBIN A1C 2022-09-14 11:15:00 Brittani Manriquez [facility] POCT-GLUCOSE METER 2022-09-14 10:05:00 Benito Pretty I. [facility] POCT-GLUCOSE METER 2022-09-14 09:25:00 Benito Pretty I. [facility] BASIC METABOLIC PANEL 2022-09-14 08:51:00 [facility] 2022-09-14 08:33:00 Benito Pretty I. [facility] POCT-GLUCOSE METER 2022-09-14 06:45:00 Benito Pretty I. [facility] POCT-GLUCOSE METER 2022-09-14 05:12:00 Benito Pretty I. [facility] KETONE, BLOOD 2022-09-14 05:04:00 [facility] 2022-09-14 05:03:00 Dipika Singh [facility] TYPE AND SCREEN, 2022-09-14 04:55:00 Rosa M Majano [facility] AUTOMATED Center RPR 2022-09-14 04:31:00 Gretel [facility] POCT-GLUCOSE METER 2022-09-14 04:27:00 Benito Pretty I. [facility] COMPREHENSIVE METABOLIC 2022-09-14 03:16:[facility] 2022-09-14 03:16:00 [facility] 2022-09-14 03:16:00 [facility] TSH/FREE T4 IF INDICATED 2022-09-14 03:16:00 [facility] LIPID PANEL 2022-09-14 03:16:00 [facility], [facility] PROTHROMBIN TIME/INR 2022-09-14 03:16:00 Pitt[place], [facility] APTT 2022-09-14 03:16[facility]00 [facility] PROLACTIN 2022-09-14 03:16:00 [facility] D-DIMER 2022-09-14 03:16:00 [facility] CBC W/PLT COUNT & AUTO 2022-09-14 03:15:00 [facility], [facility] HEMOGLOBIN A1C 2022-09-14 03:15:00 [facility], [facility] LACTIC ACID, VENOUS 2022-09-14 03:15:00 [facility] BLOOD GAS, VENOUS 2022-09-14 03:15:00 [facility], [facility] CBC W/PLT COUNT & AUTO 2022-09-14 03:15:00 [facility] POCT-GLUCOSE METER 2022-09-14 02:31:00 Benito Pretty [facility], [facility] COLONOSCOPY (ENDO) 2022-05-14 15:39:47 [facility] 2022-05-14 15:39:47 [facility] 2022-05-14 15:37:00 Jarod Boudreaux [facility] POCT GLUCOSE(AGE 2022-05-14 14:56:00 Galle, [facility] >30DAYS) [facility] POCT GLUCOSE(AGE 2022-05-14 14:56:00 Tanner [facility] >30DAYS) Medical Branch POCT GLUCOSE (AUTOMATED) 2022-05-14 14:54:00 Jarod Boudreaux [facility] POCT GLUCOSE (AUTOMATED) 2022-05-14 14:54:00 Jarod Boudreaux [facility] PATIENT QUESTIONNAIRE 2022-05-14 05:01:00 Doctor Unassigned, No [facility] EXTERNAL PROVIDER 2022-03-11 05:01:00 Doctor Unassigned, No [facility] RECORDS [facility] EXTERNAL PROVIDER 2022-03-11 05:01:00 Doctor Unassigned, No [facility] RECORDS [facility] BI SCREENING 2022-02-12 13:53:00 Requisition, Paper [facility] TOMOSYNTHESIS BILATERAL Medical [employer] [place] ASSIGNMENT OF BENEFITS 2022-02-12 13:26:09 Doctor Unassigned, No [facility] URINALYSIS 2022-02-01 16:02:00 Iliana Chavez [facility] LIPASE 2022-02-01 15:54:00 Iliana Chavez [facility] MAGNESIUM 2022-02-01 15:54:00 Iliana Chavez [facility] TROPONIN I 2022-02-01 15:54:00 Ilaina Chavez [facility] COMP. METABOLIC PANEL 2022-02-01 15:54:00 Iliana Chavez [facility] ([id number]) [facility] CBC WITH DIFF 2022-02-01 15:54:00 Iliana Chavez [facility] CONSENT/REFUSAL FOR 2022-02-01 15:41:34 [facility], [facility] DEXA AXIAL (HIP AND 2022-01-09 16:06:34 Requisition, Paper [facility] SPINE) Medical [employer] [place] ASSIGNMENT OF BENEFITS 2021-03-02 23:26:28 Doctor Unassigned, No [facility] Plan of Care Planned Activity Planned Date Details Comments Source Future Scheduled 2025-09-14 Lipid panel (procedure) [facility] 00:00:00 [code = 58376283] Medical Ce nter Future Scheduled 2025-09-14 Lipid panel (procedure) [facility] 00:00:00 [code = 46079715] Medical Ce nter Future Scheduled 2025-09-14 Lipid panel (procedure) [facility] 00:00:00 [code = 91070203] Medical Ce nter Future Scheduled 2023-09-[address] [facility] 00:00:00 [facility]ing [facility] Medical Cent[facility] r Screening (12+) [code = Tobacco Cessation Counseling and Screening (12+)] Future Scheduled 2023-09-[address] [facility] 00:00:00 [facility] Cent[facility] r Screening (12+) [code = Tobacco Cessation Counseling and Screening (12+)] Future Scheduled 2023-09-[address] [facility] 00:00:00 [facility]ing [facility] Medical Cente r Screening (12+) [code = Tobacco Cessation Counseling and Screening (12+)] Future Scheduled 2022-09-[address] [facility] 00:00:00 WELLNESS (YEAR 2 or Medical Center FIRST YEAR if no IPPE) [code = MEDICARE ANNUAL WELLNESS (YEAR 2 or FIRST YEAR if no IPPE)] Future Scheduled 2022-09-[address] [facility] 00:00:00 WELLNESS (YEAR 2 or Medical Center FIRST YEAR if no IPPE) [code = MEDICARE ANNUAL WELLNESS (YEAR 2 or FIRST YEAR if no IPPE)] Future Scheduled 2022-09-[address] [facility] 00:00:00 WELLNESS (YEAR 2 or Medical Center FIRST YEAR if no IPPE) [code = MEDICARE ANNUAL WELLNESS (YEAR 2 or FIRST YEAR if no IPPE)] Future Scheduled 2022-09-[address] [facility] 00:00:00 (12+) [code = Medical Center DEPRESSION SCREENING (12+)] Future Scheduled 2022-09-21 FALLS RISK SCREENING [facility] 00:00:00 [code = FALLS RISK Medical C enter SCREENING] Future Scheduled 2022-09-[address] [facility] 00:00:00 (12+) [code = Medical Center DEPRESSION SCREENING (12+)] Future Scheduled 2022-09-21 FALLS RISK SCREENING [facility] 00:00:00 [code = FALLS RISK Medical C enter SCREENING] Future Scheduled 2022-09-[address] [facility] 00:00:00 (12+) [code = Medical Center DEPRESSION SCREENING (12+)] Future Scheduled 2022-09-21 FALLS RISK SCREENING [facility] 00:00:00 [code = FALLS RISK Medical C enter SCREENING] Future Scheduled 2022-09-[address] [facility] 00:[facility]:00 measurement (procedure) [facility] [code = [id number]] Future Scheduled 2022-09-[address] [facility] 00:00:00 measurement (procedure) [facility] [code = 07711215] Future Scheduled 2022-09-[address] [facility] 00:00:00 measurement (procedure) [facility] [code = 49939277] Future Scheduled 2022-05-22 INFLUENZA VACCINE (#1) [facility]00 [code = INFLUENZA Medical Ce nter VACCINE (#1)] Future Scheduled 2022-05-22 INFLUENZA VACCINE (#1) [facility] 00:00:00 [code = INFLUENZA Medical Ce nter VACCINE (#1)] Future Scheduled 2022-05-22 INFLUENZA VACCINE (#1) [facility] 00:00:00 [code = INFLUENZA Medical Ce nter VACCINE (#1)] Future Scheduled 2022-01-07 COVID-19 VACCINE (4 - [facility]00 [facility] series) [code = COVID-19 VACCINE (4 - Booster for [employer] series)] Future Scheduled 2022-01-07 COVID-19 VACCINE (4 - [facility]00 [facility] series) [code = COVID-19 VACCINE (4 - Booster for [employer] series)] Future Scheduled 2022-01-07 COVID-19 VACCINE (4 - [facility]:00 [facility] series) [code = COVID-19 VACCINE (4 - Booster for [employer] series)] Future Scheduled 2021-08-09 PNEUMOCOCCAL 65+ YRS ([address] [facility] 00:00:00 - PCV) [code = Medical Cente r PNEUMOCOCCAL 65+ YRS (2 - PCV)] Future Scheduled 2021-08-09 PNEUMOCOCCAL 65+ YRS ([address] [facility] 00:00:00 - PCV) [code = Medical Cente r PNEUMOCOCCAL 65+ YRS (2 - PCV)] Future Scheduled 2021-08-09 PNEUMOCOCCAL 65+ YRS ([address] [facility] 00:00:00 - PCV) [code = Medical Cente r PNEUMOCOCCAL 65+ YRS (2 - PCV)] Future Scheduled 2019-07-20 Screening for malignant [facility] 00:00:00 neoplasm of breast Medical C enter (procedure) [code = 195593247] Future Scheduled 2019-07-20 Screening for malignant [facility] 00:00:00 neoplasm of breast Medical C enter (procedure) [code = 772775191] Future Scheduled 2019-07-20 Screening for malignant [facility] 00:00:00 neoplasm of breast Medical C enter (procedure) [code = 008321799] Future Scheduled 2007 SHINGLES VACCINES ([address] [facility] 00:00:00 [facility]) [facility] Future Scheduled 2007 SHINGLES VACCINES ([address] [facility] 00:00:00 2) [facility] Future Scheduled 2007 SHINGLES VACCINES ([address] [facility] 00:00:00 2) [facility])] Future Scheduled 1978 Screening for malignant [facility] 00:00:00 neoplasm of cervix Medical C enter (procedure) [code = 222174463] Future Scheduled 1978 Screening for malignant [facility] 00:00:00 neoplasm of cervix Medical C enter (procedure) [code = 762642260] Future Scheduled 1978 Screening for malignant [facility] 00:00:00 neoplasm of cervix Medical C enter (procedure) [code = 364814558] Future Scheduled 1976-01-03 DTAP/TDAP/TD VACCINES [facility] 00:00:00 (1 - Tdap) [code = Medical C enter DTAP/TDAP/TD VACCINES (1 - Tdap)] Future Scheduled 1976-01-03 DTAP/TDAP/TD VACCINES [facility] 00:00:00 (1 - Tdap) [code = Medical C enter DTAP/TDAP/TD VACCINES (1 - Tdap)] Future Scheduled 1976-01-03 DTAP/TDAP/TD VACCINES [facility] 00:00:00 (1 - Tdap) [code = Medical C enter DTAP/TDAP/TD VACCINES (1 - Tdap)] Future Scheduled 1975 HEPATITIS C [facility]CRE[facility]ING [facility]:00:00 [code = HEPATITIS C Medical Center SCREENING] Future Scheduled 1975 HEPATITIS C [facility]CRE[facility]ING [facility]:00:00 [code = HEPATITIS C Medical Center SCREENING] Future Scheduled 1975 HEPATITIS C [facility]CRE[facility]ING [facility]:00:00 [code = HEPATITIS C Medical Center SCREENING] Future Scheduled 1967 DIABETIC EYE EXAM [code [facility] 00:00:00 = DIABETIC EYE EXAM] Medical Center Future Scheduled [address] [facility] 00:[facility]:00 examination Medical Center (regime/therapy) [code = 053979943] Future Scheduled 1967 Urine screening for [facility] 00:00:00 protein (procedure) Medical Center [code = 161534643] Future Scheduled 1967 DIABETIC EYE EXAM [code [facility] 00:00:00 = DIABETIC EYE EXAM] Medical Center Future Scheduled [address] [facility] 00:00:00 examination Medical Center (regime/therapy) [code = 103371298] Future Scheduled 1967 Urine screening for [facility] 00:00:00 protein (procedure) Medical Center [code = 453584611] Future Scheduled 1967 DIABETIC EYE EXAM [code [facility] 00:00:00 = DIABETIC EYE EXAM] Medical Center Future Scheduled [address] [facility] 00:00:00 examination Medical Center (regime/therapy) [code = 977551961] Future Scheduled 1967 Urine screening for [facility] 00:00:00 protein (procedure) Medical Center [code = 601627114] Future Scheduled 1957 CT Colonography (combo) [facility] 00:00:00 [code = CT Colonography [facility] (combo)] Future Scheduled 1957 Screening for malignant [facility] 00:00:00 neoplasm of colon Medical Ce nter (procedure) [code = 320825887] Future Scheduled 1957 Screening for malignant [facility] 00:00:00 neoplasm of colon Medical Ce nter (procedure) [code = 055248227] Future Scheduled 1957 DXA SCAN [code = DXA [facility] 00:00:00 SCAN] [facility] Future Scheduled 1957 Screening for malignant [facility] 00:00:00 neoplasm of colon Medical Ce nter (procedure) [code = 951357652] Future Scheduled 1957 Screening for malignant [facility] 00:00:00 neoplasm of colon Medical Ce nter (procedure) [code = 701664019] Future Scheduled 1957 Sigmoidoscopy [code = [facility] Sigmoidoscopy] [facility] Future Scheduled 1957 CT Colonography (combo) [facility] 00:00:00 [code = CT Colonography [facility] (combo)] Future Scheduled 1957 Screening for malignant [facility] 00:00:00 neoplasm of colon Medical Ce nter (procedure) [code = 399759226] Future Scheduled 1957 Screening for malignant [facility] 00:00:00 neoplasm of colon Medical Ce nter (procedure) [code = 357390634] Future Scheduled 1957 DXA SCAN [code = DXA [facility] 00:00:00 SCAN] [facility] Future Scheduled 1957 Screening for malignant [facility] 00:00:00 neoplasm of colon Medical Ce nter (procedure) [code = 169846647] Future Scheduled 1957 Screening for malignant [facility] 00:00:00 neoplasm of colon Medical Ce nter (procedure) [code = 270104401] Future Scheduled 1957 Sigmoidoscopy [code = [facility] ([facility] 00:00:00 [code = CT Colonography [facility] (combo)] Future Scheduled 1957 Screening for malignant [facility] 00:00:00 neoplasm of colon Medical Ce nter (procedure) [code = 261447742] Future Scheduled 1957 Screening for malignant [facility] 00:00:00 neoplasm of colon Medical Ce nter (procedure) [code = 687029410] Future Scheduled 1957 DXA SCAN [code = DXA [facility] 00:00:00 SCAN] [facility] Future Scheduled 1957 Screening for malignant [facility] 00:00:00 neoplasm of colon Medical Ce nter (procedure) [code = 659689710] Future Scheduled 1957 Screening for malignant [facility] 00:00:00 neoplasm of colon Medical Ce nter (procedure) [code = 103353990] Future Scheduled 1957 Sigmoidoscopy [code = [facility] Sigmoidoscopy] [facility] Goal Plan of Care Note [code = 04879-3] Goal Plan of Care Note [code = 68656-7] Goal Plan of Care Note [code = 29983-3] Goal Plan of Care Note [code = 56201-6] Goal Plan of Care Note [code = 70241-5] Goal Plan of Care Note [code = 50123-2] Goal Plan of Care Note [code = 41122-3] Goal Plan of Care Note [code = 05008-9] Goal Plan of Care Note [code = 89426-9] Goal Plan of Care Note [code = 63807-3] Goal Plan of Care Note [code = 82237-2] Goal Plan of Care Note [code = 30467-8] Goal Plan of Care Note [code = 07859-6] Goal Plan of Care Note [code = 67379-5] Goal Plan of Care Note [code = 15660-5] Goal Plan of Care Note [code = 69144-8] Goal Plan of Care Note [code = 12629-8] Goal Plan of Care Note [code = 51517-6] Goal Plan of Care Note [code = 87994-3] Goal Plan of Care Note [code = 09925-2] Goal Plan of Care Note [code = 67662-5] Goal Plan of Care Note [code = 57336-1] Goal Plan of Care Note [code = 81812-5] Goal Plan of Care Note [code = 92039-0] Goal Plan of Care Note [code = 71464-6] Goal Plan of Care Note [code = 88833-2] Goal Plan of Care Note [code = 70857-5] Goal Plan of Care Note [code = 84538-9] Goal Plan of Care Note [code = 61271-2] Goal Plan of Care Note [code = 32449-2] Goal Plan of Care Note [code = 51246-0] Goal Plan of Care Note [code = 37484-0] Goal Plan of Care Note [code = 52829-9] Goal Plan of Care Note [code = 13301-4] Goal Plan of Care Note [code = 66271-7] Goal Plan of Care Note [code = 45525-7] Goal Plan of Care Note [code = 19357-0] Goal Plan of Care Note [code = 77944-4] Goal Plan of Care Note [code = 55731-8] Goal Plan of Care Note [code = 55163-3] Goal Plan of Care Note [code = 14789-5] Goal Plan of Care Note [code = 30787-7] Goal Plan of Care Note [code = 31407-1] Goal Plan of Care Note [code = 04072-1] Goal Plan of Care Note [code = 15522-2] Goal Plan of Care Note [code = 74844-0] Goal Plan of Care Note [code = 12401-8] Goal Plan of Care Note [code = 49297-6] Goal Plan of Care Note [code = 59823-6] Goal Plan of Care Note [code = 70553-0] Goal Plan of Care Note [code = 03331-9] Goal Plan of Care Note [code = 02023-8] Goal Plan of Care Note [code = 64115-9] Goal Plan of Care Note [code = 11955-2] Goal Plan of Care Note [code = 67681-2] Goal Plan of Care Note [code = 18194-0] Goal Plan of Care Note [code = 28900-1] Goal Plan of Care Note [code = 19324-1] Goal Plan of Care Note [code = 00249-2] Goal Plan of Care Note [code = 06675-7] Goal Plan of Care Note [code = 62509-4] Goal Plan of Care Note [code = 38716-0] Goal Plan of Care Note [code = 56124-6] Goal Plan of Care Note [code = 44814-2] Goal Plan of Care Note [code = 16741-0] Goal Plan of Care Note [code = 83426-2] Goal Plan of Care Note [code = 01334-0] Goal Plan of Care Note [code = 07751-5] Goal Plan of Care Note [code = 00813-8] Goal Plan of Care Note [code = 82250-9] Goal Plan of Care Note [code = 32274-1] Goal Plan of Care Note [code = 24227-8] Goal Plan of Care Note [code = 86066-6] Goal Plan of Care Note [code = 66118-9] Goal Plan of Care Note [code = 78624-0] Goal Plan of Care Note [code = 97332-7] Goal Plan of Care Note [code = 13253-1] Goal Plan of Care Note [code = 56949-4] Goal Plan of Care Note [code = 72901-4] Goal Plan of Care Note [code = 58323-4] Goal Plan of Care Note [code = 73568-3] Goal Plan of Care Note [code = 44561-6] Goal Plan of Care Note [code = 95131-1] Goal Plan of Care Note [code = 87940-0] Goal Plan of Care Note [code = 61776-5] Goal Plan of Care Note [code = 39563-0] Goal Plan of Care Note [code = 39707-1] Goal Plan of Care Note [code = 06411-2] Goal Plan of Care Note [code = 90929-1] Goal Plan of Care Note [code = 64939-7] Goal Plan of Care Note [code = 44947-8] Goal Plan of Care Note [code = 59108-0] Goal Plan of Care Note [code = 42444-8] Goal Plan of Care Note [code = 64385-5] Goal Plan of Care Note [code = 93106-2] Goal Plan of Care Note [code = 36079-8] Goal Plan of Care Note [code = 59143-4] Goal Plan of Care Note [code = 41622-0] Goal Plan of Care Note [code = 45147-8] Goal Plan of Care Note [code = 27792-9] Goal Plan of Care Note [code = 14833-0] Goal Plan of Care Note [code = 88256-6] Encounters Start End Encounter Admission Attending Care Care Encounter Source Date/Time Date/Time Type Type Clinicians Facility Department ID 2022-10-20 2022-10-[address] [facility] [id number] Romaine 13:17:07 13:17:07 0130 F Chris 2022-09-30 2022-09-30 Outpatient [id number] cc [id number] 00:00:00 00:00:00 Visit [id number] 2022-09-14 2022-09-25 [facility] [id number] [facility] 17:51:00 [address]ey Berry In [facility] Claudia Reshad 2022-09-14 2022-09-25 [facility] [id number] [facility] 01:38[facility] 17:51:00 Encounter Alexey Berry In [place], Neblu Reshad 2022-09-14 2022-09-25 Inpatient ER [facility] Neuro ICU [id number] SLE 01:38:00 17:51:00 NEJSEYMOURDIN 2022-09-21 2022-09-[address] [facility] [id number] 08:36:00 12:42:00 Event Christine Escoto [facility] 2022-09-21 2022-09-[address] [facility] [id number] 08:36:00 12:42:00 Event Christine Escoto [facility] 2022-09-21 2022-09-[address] [facility] [id number] 08:00:00 11:13:00 [facility] 2022-09-21 2022-09-[address] [facility] [id number] 08:00:00 11:13:00 [facility] 2022-09-16 2022-09-16 Outpatient [facility] [id number] [facility] 00:00:00 23:59:00 Jayla 2022-09-15 2022-09-15 Travel [facility] [id number] [facility] 00:00:00 [facility] 2022-09-15 2022-09-15 Travel [facility] [id number] [facility] 00:[facility] 00:00:00 [facility] 2022-08-11 2022-08-11 Outpatient SFA SFA [id number] Romaine 11:24:30 11:24:30 [id number] F Chris 2022-08-11 2022-08-11 Outpatient [id number] 00:00:00 00:00:00 Visit [id number] 2022-07-09 2022-07-09 Outpatient SFA SFA [id number] Romaine 16:53:46 16:53:46 1019 F Chris 2022-07-09 2022-07-09 Outpatient [id number] 00:00:00 00:00:00 Visit [id number] 2022-05-14 2022-05-14 Outpatient Kaykay [facility] [id number] [facility] 09:17:00 12:07:00 JAROD Mcdonaldy o f [facility] 2022-05-14 2022-05-14 [facility] 1.2.840.114 [id number] [facility] 09:17:00 12:07:00 Encounter Jarod mcdonald MARY 350.1.13.10 ity of [facility] [place] [id number] [facility] [address] 2022-05-14 2022-05-14 Surgery [facility] 1.2.840.114 [id number] [facility] 10:17:00 10:59:00 e, Christinekaykay Rob MARY 350.1.13.10 ity of [facility] [place] [id number] [facility] [address] 2022-05-14 2022-05-14 Orders Doctor ROBERTO 1.2.840.114 [id number] [facility] 00:00:00 00:00:00 Only Unassigned, TANYA 350.1.13.[address] [facility] 4.2.7.2.686 Jf as [id number] [facility] [address] 2022-04-22 2022-04-22 Outpatient [id number] 00:00:00 00:00:00 Visit [id number] 2022-02-12 2022-02-12 Hospital Radiology [facility] 1.2.840.114 [id number] [facility] 08::24 23:59:00 Encounter [place] 350.1.13.10 ity of [facility] [place].7.2.[place] [id number] [facility] [address] 2022-02-12 2022-02-12 Outpatient R RADIOLOGY [facility] [id number] [facility] 08:26:24 23:59:00 ity of [facility] 2022-02-12 2022-02-12 Orders Doctor ROBERTO 1.2.840.114 [id number] [facility] 00:00:00 00:00:00 Only Unassigned, TANYA 350.1.13.10 ity of [facility] 4.2.7.2.686 Jf as [id number] [facility] [address] [place] 2022-02-01 2022-02-01 Emergency X KATHY [facility] ERT [id number] Univers 10:43:00 13:04:00 ILIANA herrera [facility] 2022-02-01 2022-02-01 [facility] 1.2.840.114 [id number] [facility] 10:43:00 13:04:00 Iliana HERNANDEZ 350.1.13.10 ity of [place]7.2.686 [place] [facility] [id number] [facility] [address] 2022-01-09 2022-01-09 Outpatient R MICHAEL [facility] [id number] Univers 10:37:05 23:59:00 ATTENDING javier [facility] 2022-01-09 2022-01-09 [facility], [facility] [id number] [id number] Univers 10:37:05 23:59:00 Encounter Attending MARY 350.1.13.10 [place]arnol of [place] 4.2.7.2.686 [facility] [id number] [facility] [address] 2021-03-02 2021-03-02 Urgent Provider, [facility] 1.2.840.114 [id number] Univers 18:28:27 19:11:42 Care Radha Goldsmith [facility] 350.1.13.10 ity of [place] 4.2.7.2.686 Jf as Professio [id number] [address] 2021-03-02 2021-03-02 Outpatient R JACQUELINE [facility] [id number] Univers 18:00:00 18:00:00 RADHA herrera [facility] 2021-03-02 2021-03-02 Orders Doctor FELISA 1.2.840.114 [id number] Univers 00:00:00 00:00:00 Only Unassigned, TANYA 350.1.13.10 ity of [facility] 4.2.7.2.686 Jf as [id number] Medi meghana [address] Results Test Description Test Time Test Comments Results Result Comments Source Tissue Exam 2022-10-10 09:37:47 Test Item Value Reference Range Interpretation Comme nts Case Report (test code = 104) Surgical Pathology Report Case: [id number] Authorizing Provider: Smith Connors MD Collected: 09/21/2022 11:03 AM Ordering Location: [address] Received: 09/23/2022 11:19 AM Service Pathologist: Rc Quiñones MD Specimen: Brain, Right, Right Frontal Tumor ADDENDUM (test code = 3381) b3bclVHbAKNrdOC0PjEuUVYhe2nav6XpvGFjrHV oOJtovKXkcoIvcl53fUU9nB62ML3jTYHkZqL7HM BqyyY6Ipm5ZQRbGJJevIQwR773f1fwi7kunrHcb DM2aYkoVIRbmqczQlO7DSbxJVQsrvomFJm0WEeb LXSaxJN2ELUbbYWvG1MhPCFnWG9efsk4HUC2BPx bZVDdApE8AKDzxYAxKKHypSyyCOgpq300GGN5Hz BvISSnclPlzNgwhN2wVmgnmfRsEJZROIROPMNHR IZDAEyRB9CTGhcqdFDjMKUzZVElHQduNGTjeNxz rWMfsp7alUQgPHH4oD0vUQKxeCYjt3jixcpjmUV kGDWhVmUiDAMGAL8zizeke47jXRFHIiKyP6rTIN amZOAwNZPcfCVdRVMvaxyaIWRKTB3TLuLiiUCkE YEgDWLiLVv2yT5eFImkx1L3LLqvrqOcvFIgNl0g rOCmNRAwVYAbkgVuusEgHICcMTMwmEDHJV1CMQ7 ajCmxeqvyf5aozauckZYdOV2oELyeY7JOOaORLP cgGQUYVEPAPfRUqiFpzrdkJE8cIHDaVcOeLn8re g8qeMr7jGQnNRXusxRbSDbxAJRVIcIitKRrRUNo a77ypMBiQR08dPP7fH5cNfUHq1TnOAJ5YCG5TZR iiJMrFVKqsyUGcTCvz1HcpjQkWQYptC5okJinFV 3lr0jfnu0gwFQnBRUapO8peHIwa4UkFHK4TZdjY lxwYXJccGFyfQ== DIAGNOSIS (test code = 3220) d4gwwIAuWZGfl7fiDNFijHEpMzCnGcQuJzZxKf p cdWMxIHtccnRmMVxlcGljOTYwMlxhbnNpXHNwbH WdK1FazpzqTJuiTJ8wVZ2pgNodwDYgiXTuZKCgO sZnv4kct110sVLwl2oeZQBOsxlccMv2mHdvW06s n3T8LexqH69ecTCrMGD4SJFzUIZvoEXxXSSkDQX 2JYButNImS3wvEFLiJZ7hhzpeHZnlKYqqCYZnzK U5TTCzkKRrM8QkSEAkZFllWJIugxz1IhBiEs8po BBobSzqWEygVBFeMBDlVEbaUYMbYuXpPxUpgB5w GJLcG6k0TVHnc736DHkqhJEqu7AvUKT7W4lecP1 qSczdUXPcxWKwWUEjKW8dipifG2wcaJNwCHgbq1 ZxlE9gjRDsoUi3LCQNBdIBJM4iZ0TgJNYwZesnx 5UdXYYxyA9nvbTeeLSxmInpwmXyIFopz0RfQOmu CINrVJ0yrZvmXWFmEF9eHHZdF1hnaS3ivqm5GfH sEVJyZeE8ZVDzszU8Fwh6GHWkRVizk2bab5WrKZ GsMLs1gXqwZkCwHMJhr7ykwxSvNyCrYRMwPSIbG BOceAJuB662s1yrx3qamgMkqJA6DMVxHMW0MVtw jnTlvzH4JXioeFMwWaS9WZtbvbUhKAqbpmHyuiV zXxb7RXXlW483YRT2hDkwa6uqTYO1DGRhGBKhYc SjNr7ebPNzB867QQVrZUZEJXMfwLx9EZBrgtPpt iNdxDNNn173O668v9cvLVFvjgKgaFdRhyrwb0me Z374VQKsvBEfkaLmSyXrEHHhpKIzfDN5ZWUkED4 ofysyCJcpJSzrUHWdnqR4UIBxdZVjG6ZsRPKtLV 9xvclfYYB9UJtbGYZjTNA7QmVyJFIzg6Tsepg3D vYdhd3ptp31VLC2b2KcmAcbSLJ9RPZ8CzOrTn7p cJStEEBnWF1uKtOcvXKvPUVvrq99bFflJOsrZMG 3ASHgkqEpb7Jrc0miRaUxxsYcU2gsA2UiVKHjFQ TmUSBvEnEpmuTab8Vgv1NbxVDqeWb6p6wmXWRwX HKrcPhdj7ybBPQ3RYPqhVVgZ7tfrT6zTMIrCS2f jflbu6kmRWbrVVuhCAMkkMB7cxO1RNEjjJKkE0C evV8xHXCyADdyNOLyglx5DxAaTu0xuLGtuEdoBD xzYmtwYWdlXHBnbmNvbnRccGduZGVjXHBsYWluX HBsYWluXGYwXGZzMjRccWxcbGFuZzEwMzNcaGlj cYcvHElxXxJfVWDuNIlpZ9nmUfLzXcIvRgo0OKA okDOlJRFnEmw3FMYhrOMbBWKIyMqarH3xOSWmlN humO4clGV5IVHrpdYbqWEDjP7sXAERwZ9bZiZ8Y XHjSft5DTL3EcVfuVYfiN0= COMMENT (test code = 3359) n5yufZCmZLHyaBF1BpVmUCWmm0qla7LvfLIxeGE xHKqnqROqtvHyzi48mIQ6kE88AE1iOQZlXqJ8PN LupbO5Jqx6TTZwYUFqjVHzG753u5whi9jlzjLcf NP0uPwvVRIfdyanRfU5PXbhFCHnlwubOHw0ITzj BNVjoHT2KIOsaHQeC3ZvTDRpHX2wwrk6KLK1TEr xGCZvZdR6WUZicHTmOMNdmHesUQgpi855CSY5Qv QhRJTcmoTtvYuoqM7vBlLbMUTGEPT0eO9zydFoc V58VXMawUWoeE8rf6DwMVicLOaobbJlcSirt67c n5l9oREtbHowzMgnzK1gxrJnm3OxCR4omP90lPB sASA3nICawMqxILRruTf9p0ZopnHnZPSnzXjifL 4iy2quaeAzgHUpROujLHEMcNKxRINnqsAemDBak tJakWq6mPNudXB1RBUelMEutSBjYDohQZNrEB4y AEkji3rmTWJccnppTNXlmQk0WUY1rCYvWNDfdlG yNxCvwAKlkjTvTh8vwQToIjLklV1bkWBjRD21dk XpYAIeb5Lehe7eYB0bCOFwBkmsiUWjxnXqfBEsm x7qgOOoMH8ahFLriaRyKVSxZgRlAI2lbI8lhVcq tW0mfRAviAYruRMamYQoazCeNADdtzCabd9vYEN 9zLYoQSMzzQBneWJyLPVuPPBigrYyv4jiEHPdwW 21ZnimTRXeEOIHSBD5FOBymCLqnPJjc3DaaMi1D HiuVIKiNJIEEwQHCvSGjdYwnbKfflVjapFyz1im dwpeZNZnDKOMfOT8CiCTlf3qwYPjuzX6zIVqRAs pTPU0RE6uABqbBSHsAES9MG6dldIdtWAoYWpywG lrrImfjkOdvwG2UFKoI0KjtMHeNEPjfvzmTRJlP EzyHJ11UTDcfFurKpkiQDjuF0AcJUWkJA3zy6Ds H18mm4cjjGObnGQ7xSEpCIWzdHKlaX0ihD0cVPw gqKlgsH8co8fvX5RkuWhkR28YCCwKIbClodJnNY SoCbXlRZeltfHybGUmKo0yRLjcqymgVgIodMRgS C4hHSLyvJfpeDOaaYNhAJC1mBUshf9tQMabFJMI S50bRDtoJMKjOxbVLVCfshPqZCfzIGBJMVuoMAN siXSwoT36FYNitVA4IIUtu89eNP8oxKupeMHtw2 zeuRKgPMQuDGHkz8NuJLBnCDCqZFS9fQKfulKvm Yh6RJZqDQJblJ6aqYZsvgPmfG5xAXracJoyKzWp fcVih9U9PYEbqW4aWA8pMXNeRR3szS4hFONlcrk pRWCyZllpF2boOWKtwUYbUCLlGZY1BLPnBSL3rN 6gSWEbzXk2oIPmnWO0PXNzauPgHRPimSepvgOtH QSxI2fxmEVbmFTejVNuyZWuIbzjISKikPRxXPme YXJ9 CPT Code(s) (test code = 3357) t9awcWFxREQxrOS3RqXzQCJor6xss3LkkKMz cGF fSIogjXFjphMfgl02oFW3vS04NA8bNUUaReT8FX FnwdA0Kps2ILQwWMTrcQFkN291r4krh1uoyoNdu SI5sWyeHPFylnxcJrB9USriXURklyztDCy5DExv IZTteQZ9YARqlWJsF2EiMMWzEJ0nfzv2DCV5DNg xKPOlIlY3CTLhvYHjREYkxNlaVQeah924MNW1Oq DrPPMgsiOuwVlbvG5cHeGcTGE0LVZsIipvLPdoB ZYzXAj6IrEiTGP5KPN1BMhnXQV8 CLINICAL HISTORY (test code = 3356) y2qbxQDbNTKehGJ0AoYcQHNts8kbq7H sdHBncGF sXAfjzRItxsJjun49cSH9cI53PC0sLHFlEdB1PF JlgrJ9Akb3SJWaAOHekKYgC937u5vrx1tbuaJfa AK3uEcdMRRddixtTgX2ZYxjYQZqymfwZYi3BEer KZRczLJ3QTJbrMPjR4LnNPIcLZ1qxum4WGD7IZo eLUIpEfJ0NCAvdLZjINYcqTrjYDsji734PTD6Tu TjIKDgdrXvdGliuN1gRkFxRPPLyMblkBSqnf7dr URiAWgvKzMohLCpeO2jYVUqgc9= GROSS DESCRIPTION (test code = x2spdRAzMFEwtQXJUROtT6jwjtDiNCZpcRCs Z3B [id number]) ythlzRGjsEU3jWT5cjTmrzPHmdNBxYH6OASByQj YwZAStcLLjjdXyVtVjVNOzfZHrjXD6CVHjUQ1zl azpDEhiBTtiIXMhbnE5SHBvySTbT8CdYENcJN1o tjhdNJM2ECzqqO0huuVYTyvnLl2puFJgwAmlZiW hAcEiYOLeEGDsJQVotXukDURpOMc0fD2HJlohCX B0DAHQJktwCQUcOW1Lo6ovZNWuqZSvMZF8TMqni RIvXNRcVEZiPIh0QGJnSEeokCWaNY3ceHttKruz iGmee9WbqLBjAEamMOSiPCCgDEizHYDsFQ8NBmN xZNEsKMy9TpYpTGw5LDa5ZB9IJiWdEYPbDJh4Ha y0JNWiWEj5QYheBM6KWHF6DCqpVAx0JRG6ZVL6U AVnAODeIqWkHADiNFVqBWcxSVtzwHEcLE5raFvr bGFpbiBBLiBCcmFpbiwgUmlnaHQuXHBhciANClx lcGljTmVzdERvYzEgDQpcbHRycGFyXGxpbjBccm riDPYNTkggbCNyvOkcsxQgMSQtO6YuynMyWHclQ EGnza0doJxeZYsxRfXqKMDecGcgREBipGzoewIe ssHpWG1uPDLdO0Qom0Prq49xxpRbNdEpMOKhXDS fztofgKNzQsXdjjEqsSL3cX0vyaOxzFGpUNI8Iy ErkGE8SfXebDUnWnSnV04qYGvmnuVwRSVpUN9mR QUsoq7pwN3mNMQmOxSuxQjpk9ZlZqPjVvEdnoXz SH87HKMuaeIoh1PgfGbdieRrNAMcYEL7Zr1ivCD vGFOudlOBHR1GKWSnAMsfesEhUZkacfUmXSiuAL RpPVUlbUVxhVIzRFIMORceGXLfAISTC4IyOUivn NekuZ8zHILgP29bf6VOy0GjFEOiAPrle3pbcZtc m3FtrGQoHHflNEAcqYAsCJnkgN7kZjVpd7ysrRv 0WLwudgE7GEMkwn5RHiaivZ0pAlLtf4nddIr9MD TEGfzudtP0d8khlHeww0SltJArYZ2LBu6= MICROSCOPIC DESCRIPTION (test code = o4mwiBXdTJXloUZ3EjKoRZKrt0doy6 BsdHBncGF 3371) mPQxdkKCjcgSxew63uQJ2cI90XX5zHPWiKwA8VB RpahF6Rya0LLYrKUOpxRWtQ047p7gem9gozgDtl BG3yBzqBWDzlozmYjR2QUazVLUxxyhsDPg6UDho BTQlbGK8CHWnaGRtP5UwFOGvKC1izel2ADO4RJq aSQLiUvM1YKVgvAXrKGJdpNwnOBwiu353SQV8Mv JjDUMqliUreEkmnZ7kBiAdBWQBFMOla0XwTQMpn GFyfQ== SPECIAL STUDIES (test code = 3376) j6kcrSZrVEZma7hwGRBluNKhJfXuIxWi ZnRuYmp umOCcWDttugOxGObly1RfD6NgVoLzMIqcllZaYR IrQsbvgyxuBJQjBXP6cjBmKFPuZSuzGIZfGNlqB p2rwDNufFtfCjMsLYLyo8ohfmDYedlxlWv4w7la WXDtFhP8rJNfCDzjU7gdkqKfvPSgL0IrdFQqsGs 5s2lmWmWiKsN8aPKiYSzcH4jazmYweZHkTDXgJG f9tS11ZLWdjJ8bdRDwGZjzpeXzNaQ0ZRtlBITwV aE8HBDfdYDeHPWpN5cyCDUpBMgwBORgVCnfoBCh DEA7iOirt0N7eXUbaAKjiXryFpQkIiUeGgGPh5B gNYv3pVtaF1BqGBReQhP0vYMwUXTbXDawAOVcRL KrimW2qYmcreUxw31zeQQsZDEqSPLsUtVkuHugN PGnURRDe1IfbUbdGQT9gPj8eOagMajgUGQ0Juc0 NV8dvm73cmm5nHcrGNZlrfehGmT5ULafEICdvhi uADe3QMprZMVxeYM6NJOxjPWuM1JuCTDaIM3nrh p8UBY5JRepZCSoFvC1SEGtzRAdMNMidGacFUfmr 509OND3TcAvQM4mB0Kvf4B4lS2knYUkYLHqtBYh XkIxSCUdxp8sgQKvBGyzw8WdPRY7qcH2zQAwuVT tAYVgQA59Wiwxo5LlNyjgu2SnA80lwVQ3CWaet9 axBZ1sJlB0cvJrAUxuo6anhS9wAsQ9JQlzEP0zB K2rZKFxtR3euldsQYHcLvPrninrFLHubIdjztBq Af2roHwqYKQ7WMwfX2zyyU5tDyW8CZbyI8wgsK6 sZCu7JHgaiHQ0WDLqsT9nQC0fvdzxk4urMCqqQA bcHVPualV7veU0MPAzgHIpO8YaqI1gDXSlIN3wm mtya4fdLUN6LYjbOTDyGJM2YqHzDSHsh6Dgnvg2 KnVvo8BmfVSvZNejF97gx551KVXetxIzP4rgeSY dssufvZXnbmfyJLrccjH5UTBuSCEfKSnlLLUkVG ZzMjJcbGFuZzEwMzNcaGljaFxmMVxkYmNoXGYxX EpoV9uwRtDzW0JtQYRdLqDuPCytNLtquGQhiKXu bNY0lC5mUO5fUJCqcUQjS2SfFWKahrOvnYFfCQJ 1mIIugFGdZT2eVLeljXWgv4tgs6LiG5ngwCqemM N2HX7aSFZsBERbQTbjb7FqtE5tLejlfJFcucosZ NavjzKdVMfeabypBOWzJNrsY7ieBdHoGIShnAbt VMnjk8MjIOGjAFPvDmgamgIeMAi9vqJhCBNupwv vODPxjFrveL2yCjBqBoPtZqqsBW8mENCkJ9rzwE LxLIJxHRRpI6etDqRpwT6mbGanIJyySkZmBlLhU bFTp410ov0mVYAjjEQmavOTaIPwbZ7fAYngUIvy BUufvZGsVBzix3npAQWar3q4dQZpHAViwmObd8t oRRgykqRpHTHlcVQfdJQoTMZxz46oTZchhDwqnG atAQApr7UycGkgg9MlEbSzNLcqx0XqL44gvKRuh HPhsPeoLZMcutZqVASdb41ej2dsINJkOdY9gYVi sPP6bBVgjFUhz5LydGcjAIZii5adHCTtpb6mrcd liWPrb4PxrL9ogztoJFszbSNfskVxFIRud9n2iE GlBKHpWRCrQSvjxLa4EWJny626jz4nyhM2yJBjP NL4HQxtNKZcFBFmjcSgJEFclAUhuNHgUMRcVNtr XGYxXGZzMjJcbGFuZzEwMzNcaGljaFxmMVxkYmN zJFHzFZzuB6qsHgTpS7EnFCZgQpZxeMLqA7gnrU FyXHBsYWluXGYxXGZzMjJcbGFuZzEwMzNcaGlja VrhELfyIfVnDUAxUWfkI3suYlEvH0DuXDOuClBg ZNwraWQlzcyrZEqchcJeSCjazxryRXSlVCueU2n wQmTeEXRoaXqrCKirh5UcIDGsBXMaPhwzqzEiOZ c4auTsUGKzsicqmCGkibunRYyskgGoXDdhdjxjU CYfPZvgC0grIkSpEPIspLmsWLosz4CtTWYxRHNl DhqifnYyODhctYNei6tni4RtZ1xboFxpbCY3JKI uS6vnzDSswIT5APH2nB8eIPcxnzGnVWEhi7XvEH MlCYAgJcA9iB2zRUC9VgBLdJpvEFYxMYoeZDEcL GZzMjJcbGFuZzEwMzNcaGljaFxmMVxkYmNoXGYx KWozJ0jiXwImO5NzIJBoMmBltNuzYXilOUc3Wql jjKGgepioHIismwOzCUjmfqfhNKZaHKagR0bbKd UdLAVqaQppWJygp1YkSUHpIEXkGoxrwlGzJDWfH LEsoNZwhPCMNK00ZAZqEDQgbTpahN4uaZFVBLXu aoD8w1W7JZleWINbBGb5LQkctfDwRBPqyV7iOTU mSJ7yLYs8cqPrRTCot3KgLZ2hJBMjmAQvVHN3UY Qys6KjF9Xrr4RfNUJbHAJaqw2cnmEwUmBPmLMwP AFlsa96ACZbUE7lN8mkLPNbFDSxswHddCPzy6In KWJdqMK0aNXeQH9LOeRMg04eWMLdJMMDruOhMNF gjFrnjRE0orJ8lJ8mXwCKxATsVyPHJQxcjuUnOV Zqpd8kjnZkARSzTAUin1KvzZMbqPImovIfN9Eqb 5QoSKBhen67LSgwtTQmxu98DP5tO9Lvn7UtbH2k LXktHYUha6UkeCTxrORgMUJzf0JxO7cbsxnvRIv zqXSltX3aKRWoBId4AUSof7UlBPQyj5RaQzDxpy DoQVQuKWUkBNPkyU36MXK0bJpmbUtqcbIjVB3iJ UTlbtTkCRVsUVDfyK6tSVkkbfTmVZQritG7g9K2 UWcrWRHvlsCpTmgvPUZ7anWarfR2yUAcI3bqwib uPPxzBVCzf7QyfK6paMEWyNAlj4XlmQEcmUWYwP FwQB3ipkXwKS0xASD5QZpjGDUCWUXcYXuuGUWgT NB7PVluKppdBAH7uuRhGVLrg0OgXVmcS8usE15i bLyspQy1yRGzbLtgwBZmhHWaAZVlvoU8a1J9WTX eg2EzxncwRUYuHHfvTBZiGSJiOsJfsXLnSnQnVb ZmpVwemWeqHpasIuMmSSNvCRwkG2uaVwTaKpEcF iqnTMF3iI== Gross assessment was performed at (test [facility] enter, code = 2777) Department of Pathology, [address] [place] [address], Technical component was performed at [facility] er, (test code = 2778) Department of Pathology, [address] [place] [address], Professional component was performed at [facility] enter, (test code = 2779) Department of Pathology, [address] [place] [address], [id number] 09:37:47 Test Item Value Reference Range Interpretation Comments Case Report (test code Surgical Pathology = 104) Report Case: [id number] Authorizing Provider: Smith Connors MD Collected: 09/21/2022 11:03 AM Ordering Location: [address] Received: 09/23/2022 11:19 AM Service Pathologist: Rc Quiñones MD Specimen: Brain, Right, Right Frontal Tumor ADDENDUM (test code = s1ochAVuSEKfgSJ9PwLiME 3381) Fgo9opv4GfzYKuxGDbLVgo uQXfxgJzlq39eJC4pA84QO 3wKDJiMmD0SEMzteA9Jpg0 PADiNXNwiDNkO668g4zla1 skmyWrnBS4zCklAWMknikf GfL7NBweDXZdgtdiRGq1DM suCVWobLH9WBMrsSQoH0Fl EDNvJJ1qmmk5EZV9AHuvQW YjMzI0XBQndEHwFJZchNnq LAtkf445QSV5WsYmZEMggd MbtBtsqO8zBsnscuZtDWIJ FVFLVZVIOTKKOGpCM5MJWb pccGFyXGIwIEJyYWluLCBy tJmefFIovw4drVUnZSH8pK 3uCORjoJHez7nqnjkrmJRd FYOtApNrSDJJMC6vlgqvb7 9mHLFRVlTtN6oZXYbtOUKl IDJccGFyXHBhclxiIENPTU 7XSeJfzNAeYOCzFQUwYMh0 qW0bHAfbf1O2PZmfxoEkgS LeDl2eyOUlOMTyTDNalwZl ixItTKJpXHJkkZMUDI4NNI 4nmPhibkizw5xdbtflgCAg WV7hACmzJ4GHScRVMSgpNC QYSTDBIbRLqlLzzyeeWZ8a QBJbYqTlFs5cfz5xfHe1iR VzXHBhciAtIFxpIFRFUlRc xKOsEQZcz90pbWPjJX66tH A6aN5nVbPZq7HgNVF4ZJC9 ZWRccGFyXHBhciBQbGVhc2 QvqjTfCSZrhC0ibGmkVV9e l9xwzy3clCPwLPBurQ4xkC Lfv2VcKZZ8ZLebVvjiIOTc cGFyfQ== DIAGNOSIS (test code = y9pfcGBlYKKov1ewSAFfyA 3220) FuZzEwMzNcZnRuYmpcdWMx IHtccnRmMVxlcGljOTYwMl uiqpShVQXspLBgQ9Dviipn ZTgsZI2sBN6xlCuyjXIdpL LqANUyFuHzc1hvt379bTIg a1jeWCZGmhwliFf8qAtpE1 2kj5B7IuvoP94pzGVsCFM4 WRXpUOMmgVHiHYPzTVW8JG TmfODmG7ghMYMnGA1qpgzl QWqzISofSTLvxFR1ZSCqrL SnC6CvBVWyOTdtEYKhjcj0 HpZkFg1ffRCfbEjeHVpsAJ JkXHBsYWluXGZzMjAgQnJh eJ8gKWOtL6e3MZXfv509DL cbjJJoo9VbRGF4Q0vzhY8a WhugVUFsySLgFEBlCZ0ndb jaH5jnbZHrTYqjq5GavQ3l oMYrlPk8JPKRBpBSOV0jA6 MdUXDjXzsoq7ByRXJcpQ1x bnRccGFyfXtccnRmMVxzc3 HsRKwzGXUbVP6izSztELDl YI8mOBNbA6wneY5tjit0Gw QhBSFxMjF8ZKDhgtZ9Lih6 XGYhMBboi0rha0CyHTNmXN s8iCfbEpVvSETro2qvcmKa ZmNoYXJzZXQwIEFyaWFsO3 99j1tld8zckeAxwUC0MKEp TMK0MDdkocCwcwN5VWqpxV BkYpI8FNloqsUjQSvmzdWs flNoBee8ZSThD910ZJJ7xD tiq0nyAMN8LGNwBHLaCeYd Dw0pmBPbP690FCVzWCFTAW FefRn2FVWqemGklqCmxDIK m957R264p1ttIKFfxpAteM jHeynfa8zrZ430HPCnrFNm mzVlBwPiGFHmqXGvtED6FP YaLR5kxlqnJRyfRKtwPEKo lvT2ONDjrVIuM7EbQUBkNC 8ltoqnYKQ8SKyaTEYtCZT1 QbYpQFBio2Qjhac3SmYzfe 1sek69YTK5t0MvjLvoGEQ5 JVO1SiNfNv2srLNkMSQpFJ 0nNuXjjGYyJEBavk85bFmf EFwvICN2MISapoHzg2Qas7 fdEaWwmqAjK3rdB1WyBUYu EGQrVBHeHxUfitFxy3Rcx4 TlfROemGq4a7qkWJXaQFUt kDvxs2zdZSZ6YEEjkNVhR9 majH4yDNMlAF0twdqdp7gr EKdaMQryMNNhxTC6kmF3PB IubWLuV6MlcK3eDPTxFOlp ABTiooc6AdDlPy0riLGreN cyMFxzYmtwYWdlXHBnbmNv bnRccGduZGVjXHBsYWluXH BsYWluXGYwXGZzMjRccWxc bGFuZzEwMzNcaGljaFxmMV acMtWzZXQfHDmpA7ceGoDd GyZaLpb1HGAfaOVeJWXcGs p7EZBgaACpIPVNbSrrkD7r JOWzmAuewK1anZR5LJFddy EmfHXZiQ5kHGFSsH4rAfH3 IOVqEcd8VVJ9TdSieHHimY 0= COMMENT (test code = g8fpxZGaJUPvzBS9JlHcFQ 9509) Wiz4noa3BwaUBjaEUpBRul tWQjtrGmjp64cID2vV74VJ 1lPQQmZiD2CLOskxM0Tls6 WZBoZXLvqBAwJ625a5owa1 achwMsbGJ4xHwaXUJejzvv EcR9FBxkYNEndxerPUd1YB olSIIdhRV7KUVuwJOfH4Ti BODbTT3oumv2ISG5GDefUB VmStD2TKKsyITmRXCvxEna IPpjq970KZK9SmNmLXQvnf IomLnutN1tOsTtXIFZNUZ7 nY3aszHufP94KSWbsSXyhC 6fg0NoTAwcXDtolkTsyIft b80jn1b1bWIugXlenFtjoE 9fidQke7ShMC5roM25yOQe VJS0aXPwhWbzJFVyuTh9t2 VyllOzSEYzkAvenZ7zd3fg ciBmaWVsZCkuICBUaGVyZS XcjnGjqGAdlqUqiXa9vYUy dLM2WEBfbGAgvRFmEUbeKW RmLI5tRExsd6gmZMFdqmni WFAqwMw7COI8lTOiDNAnru DrQfFgoFJrtdLvTx3xkGFi CePxnA2eqTRyMB15ypDbYG Nnp5Zfha4zGL2cJIFyTwwk zDZgqoFopDQuer5uuCVjRU 9liGAytrOfTKMiVaJtTF7c eB8wqQldkC4ifBChqIVdlS FgmOLpgqPaQRLtmeDwhf0y DMD9mUToKIMvsFNppEElTQ MaBCRhnxUbt2ylLRRfrL74 UcioCYOiZLTEFZO0ANTdqA ZjwXLsq3UiiXv6XHbuSSSn LSBHRkFQOiBObyBicmFpbi XricAry3ckehngROWwVRBY bBF5QeIZws3yeDXwtmB4tG AjZGngBLM5AY5aXVlfUVSn JDC8CS7akuZbgVMeTUvcyP yqxIclchHikmC6ADKyO7Ld bHMpXHBhclxwYXIgVGhlIG 22GSSmkGajKfjsAYhiS6Lr YGPoBB2tb6NfA98fm3pgwM ZnaMO0wVGcYHTlhNGliP4x vY2zDBrssSchhB8ai4ggJ0 HptEdxE21KDMxWSnKevxUc ZSAyLiAgVGhlcmUgaXMgZm 4pPKohdmgrJuYckMQkLY2i NPHqiQxtcAKosXMlVYR0kC Rqsr0pHZulQABEQ05bFCtm MCAgRklTSCBhbmQgXGkgVE PESHaqLJHwaFHwnH28CGKq xNZ0XTSwg80kOB3orOeclW Bhv6vmbNRpOCXrGYFux7Gh NIJyDZUxPHB9jZQgtiIbpW t0BNCzNHJczE5rxHVgvkJo xX4jCFwbkJkfKpEvhfDmb5 T4WBDqdI9mKG9gPSJsBJ3v zC4zIDZkwlzoBUUyWzqmA1 jeNPGvlFZuQMEfMMZ5XENb RXS5tH3iCFUybZn4gWKjcU O1VIPancJxPNKgbZliqyXi LUBnD0xybFIxfPPyfUKlxQ VzLlxwYXJccGFyZFxwYXJ9 CPT Code(s) (test code z3rghDRjBVTgsWT7HnBgEA = 335) Hnk0xgr0VaoCEiqUWyMIxo ySBwfqXwzl95sQK7aC48UN 7nSKAyVtS7WIJptfL8Hyh2 YMYrZINcxJQqP068g4dih5 ftpvPeiIF8xWhdXNUvyntx BzS4UOezSGZwqapxBFr5IP foMTMwkKD9BELgjONkP0Ao KWJdXS8rarw3DEB3FFlvJY XaUqU4HOBikSRaGAOnxWjy HTlsr135UPP7ZfYsCVPkja SftBlhbS1eYxNvEED7DAVw CssoTBqrODMxUIh0HaVzSJ T2TMG4YRggHDI4 CLINICAL HISTORY (test n9uoxXKcCIPzgDB2KmAzQY code = 3356) Egj9csx1EirRUugYCaPPpd iGEipdZnrf46gIZ5jK70FG 7tWRUlYaG6RUSaoqS7Kta2 SEGkHGJefZUsK902h8vho3 jwzoOkoBG2wKolPTXuwqzs QdG8RZfmUMFvtswpQIp2VB ebRCIjqXT5MJHepWZtV3Mw LITxIC0lpxl7VRJ5VAhbLT PjIjX3WTKfeQVgDNLhkZyq TLdat313OTY0SrVyISVsqi YyuIgseW3qXhXqXSHDfOla qAPvhh2saFTeIUtuMeHgvW JebU2bMYEeof1= GROSS DESCRIPTION (test z6elxPLxTOIofEFUYRRxV3 code = [id number]) koctHcSRHvfBHxN6Vlpauo VMydJC9cRN5dpTtcqTGwtT AmFB8BIZGiBmFvRPAocGJq tsPvUxZeIIBccOVhjVR0RF MkWS2dbbbpQLufLGukBYJx ncD9WKSwpSHmW9WrGZNbCZ 3ivbpvYOG2JGmgeP3ljoTK MijlLg3ufSYkpXrhGrJwTu NoYXJzZXQwXGZuaWwgQXJp NXm5aQ9YMnxsRIZ9CVRAGk paHYMbMQ9Xo7qxUPGovQUx VWZ4SWmkyGGrGKRpBKDjWX k1LLYtAHupjGKyHK3idTub VqvdjJbwb2NlgWWbVXflBF ZpDYFgSRcrANNzXQ3IPrBn NWYwMYn6NhYxIOb4TUg5GA 4LTpTfVZXcGNs4Smd3BZSx GTp7TZepCC1WIWM3QHglYU y0RVN1VGY0PPArGPUzRnOd XGYgQXJpYWwgXFxmbCBcXG 5jfVxwbGFpbiBBLiBCcmFp biwgUmlnaHQuXHBhciANCl xlcGljTmVzdERvYzEgDQpc bHRycGFyXGxpbjBccmluMC ANClxsdHJjaFxmczIwIFJl J8CnjbNzVSguQKEmcs1dzS luIGxhYmVsZWQgdGhlIHBh lOeyotXjtgVoXG9uVTGlH2 Snu5Xkp09plkIzTbKyZEJu ZCAicmlnaHQgZnJvbnRhbC K3mI3cnxKtwDTlIQT2DwFy wMW0JsBmzQMmFsQwK69rHA ekmnMqEQAdYO4lXXIbdd2o wX6qMMSmHoMsxCkut4ZrSw QqMkGkboQnXT50DNKzxwRe r1MzlIkvwwDfWARqRSG0Jl 6ghOUxCTIavhHXNV9BABKk XGxpbmUgXGxpbmUgUGlsYX IgQXJndWVsbGVzLCBQQSwg HVXfDJWFF2QdQUictJtxuX 5kBPJvA23kj9SPx0UfZDZe QRgdf1ojhKvxf1QwoFEtJH feKHIlcTWaGLdopR3vHqJg r8wdxPs6OBnqdiE6IXAmal 0QFxsapN4hVsHbm5yicFd1 GFZCPgtymaV4x3snnAyoy5 XwnHFgGG4EIx6= MICROSCOPIC DESCRIPTION q4uxoLYjOZWguTN4CxFzJJ (test code = 3371) Icf4azp1VulSVseQLkTNkz aHFopzOtkg38nJM6pV44TU 6sXNFyXoB0ZNGncqN5Roz3 SMAyFQGtvDYmL401c3kix3 hocrQcsSN0iQdjVMRuwpbo SrX6PIhwGKZqncrjXEa8NQ rmUSQtrMP9DUHueQIsX0Ze AMDlLY2vmlz1RHA1WHcqJP SoOhA3VRKeaQDiOCUplJjh CQvhy777RYI0XrIkMHUqye EauPqbpF8oPcFqRLQGLMOe q8WnDQKquHLzlC== SPECIAL STUDIES (test i3wcfEJwQIEsu9ebUUOayD code = 3376) FuZzEwMzNcZnRuYmpcdWMx QYhtllPbLWtjl1LsJ2LzWl AwMFxhbnNpXGRlZmxhbmcx YPGfHVP6xiJwJZXsJKaiWH DqFJogLh7lcNSlwRdhEaRf MVYqa4cjhkYUhpkprCt7w4 qjXBWqDnW8zYBgEHvxZ6ef gjUdlGFpF2ScoUXzzUb5q3 lyUxEfLeO3kRDoGRohB2sf qpOtaLEoEJTxIUa2kX05KB ZeuQ3lkANePRigkkDbUdA8 HKkfAEJtQeJ8LIWkfYYpCS LvY6haCHHiDVpaKEBsSXhi yGVrQFI7oElao3D5uTIamZ RosQuhNcHkMaHmHtCPg7Jn UAc4mSqdP1GyEFGrCkB5dR QgUGFyYWdyYXBoIEZvbnQ7 dAdzsyOjk55imYGqGOVmZI YeVsFlvCqeTLTmGTJEh1El tIuwOUD5oSl8vNpnQhsgOP N2Gtr5DN4jpi39yum1yHwm KRVrfwedXkQ1ZDbkRCVgbq voDAu5BJlbHKNwbAV3SSTa mYPbC1EsHOMbWA6xhnd2OY R2HUarHVDbRlG8RHRcjHJu FHVcvCpqIEagh079EBE9Iw KbDG9tC8Prf8A5kC4xzIDr PNHsvGHgLqLjPBVuym2beS DlZIbov7KqAZG4duX1fSXb wBUlSMEpGQ56Jgqzh8DtYz vqs9RpT80oqCI1VHdie2ik BF2wBwN8qaCrVZhbs4utuY 2xWkL1TTjsPF3fJK3fEHYo pO3xaowiXXDzIpKrdpwtCA IbxLbbgcJvCz5eiVuaUCI4 FNyeL3rnfL5vGqK2WCpfJ4 qrcQ1iYZm6NDbirCH7JVPr hE8iQK5prrkdr6ilGQyyHZ pbNHOhuuD6rlT6JJShiIYh Z4QsnE8jZZYfIZ0ipumnj4 xmRNW0SThxQVBoRNX7FgCm SFAza2Uphnl9LfNdv8UpkX TzZHpbY81ht915JPErbcGm G2hwhRHbycympAPfyxtlPR mmxwY6YCIxGEKkDIuvZVYw XGZzMjJcbGFuZzEwMzNcaG ljaFxmMVxkYmNoXGYxXGxv B1tcQiQdH8SgBACyHwZjJO xhGVcxmFOhjPWspHG9zN4n TP6eTOVndNJoS5GhXGRtwm EltCJmOLM4hYRvkYNzAP1e TMdpxAHyf5xvg9SnJ9bhqF ubpGJ8BB0hUBGyOLVhABqo r8DhaI4mHefbbPVjezmsJM xmczIyXGxhbmcxMDMzXGhp B8zqIaIgBEOkhVvvJRhuf5 NoXGYxXGNmMlxmczIyXGx0 cmNoXHBhclxwYXJccGxhaW 2rDeMyEaViShcpHN7tITSz M5ustGLuXVNiECQoW5lnKm BtzJ8kbEfdYYyuJtEnDjAc DsQZg575dx9tRATurLXjpp DTdDOlsW1eSEtmEFnlETld wLExYEkrw0deQYNfc4y9mK WfLJVibrEmm2npIAehxbPz DRAkvKGvbPDrTEEms27aYK fchEzugOqpGZVwr5SroYrm m1HzLyYhBHdfs8HrD63xqS JvbCBzbGlkZXMgcnVuIGFs a60il5nkNDDzOtG7bSGqiN C2oGMcsSUjx4WveCmqGPEn i6bfDHPqbv5keoztaYYad5 YzpC2ubexeUBakqRTyscFx OMFze6m6mOYgOWXuXWDrLQ nbzOl5NNBww846bn2nhrZ1 iPBqFLZ6JAstPTUgAKQrin UgZXZhbHVhdGVkXHBsYWlu XGYxXGZzMjJcbGFuZzEwMz NcaGljaFxmMVxkYmNoXGYx CMkdI2vjAuSuJ9AeWCOuYw ObpNZaT1qihLHgUWYzHTjo XGYxXGZzMjJcbGFuZzEwMz NcaGljaFxmMVxkYmNoXGYx IUmuU7yrFgHgO1ZbULBrJk IgIFxwbGFpblxmMVxmczIy EHhelalpPFPpFXiiX8keWr MaOJRiuVgdGCafb4GlMNEz LJPzGtttkyEzCYk5pzVwXU BhclxwbGFpblxmMVxmczIy NVffftsePDSoSWzvV6kqYc LiYYHtpOprXJifx5IlZOQu XGNmMlxmczIyIEltbXVub2 anc1QiS7vraMzuaVB1JJRq S7fwpHFuiDA2AXT7fT7pSJ teuyRxZGZfl4HoXXWoFNKf GnO1jD6cHOU4JhWUgKulKM BsYWluXGYxXGZzMjJcbGFu ZzEwMzNcaGljaFxmMVxkYm JjBWUqWAczR8rmFlCaW5Lr JDPtJeOmfBdsKOaiYTb4Ai xwbGFpblxmMVxmczIyXGxh dzxgSKDyGWfsW0xtJhNdCS PeaPgsIQtpq6AwUUHaJBKy MlxmczIyIHMgTWVkaWNhbC NKCY69BLPcFYDcbNyvtS5a hOZFOXWziyJ6o7E2WCpoYJ XuSUy8TVgjtaIkPTWtdP6v ZLGcYI2nBYh0yjRyDIIuq6 ObEG5vUSOqrFUuGUX9AYXp h4MqH2Xvr6OaNNMqJXIzir 5mqtBhVkGYgLPcNYTqdt44 CWJsAA3tX4wdGZIlQNBcsv DeqCJbb1LmRSHylXJ6eZMh DZ4TRwRNj48hZTVvSPRYgd FxBQOrxMpbqCB1rqJ5bF7y LiBUaGUgRkRBIGhhcyBkZX Jlio5hnrYgEGHsQRYhp7Yu cMIuiHQkgrBnU2Bjk2XuJE Ooak64QBlvkKVnvx24LS0a L3Wyb2BngS7zOQbcHGSpa2 RmnNQftCAsGHMvp1LhW0js sjagWGaxrGZimI8lVFFaSE p8DVRzg2SxQNUvu7PuYoUx ltClLKCmADAyEJSxiR80FO G2vRomaAquheZyYD6bLDGc rnAqYXXvROPakB1rPSczoe DsWSXikmY1y5P9UOqtFQEr xvDgWwanLTD2tfXxfyG5lB QrM8ggtfjeSGblQOPfo7Db yF7yhTIWzRUsj3HuvBMhzJ HPxJZiFG9oecUkYS4cMVB8 ODggKENMSUEtODgpIGFzIH S0DZsmZypfPUA3ljFeJFYm i1UaKZmgY8gaK71ihAcbdY e3uIXhnWqvbTWjlHOlAFUd xnH5l4M1BBJca5OhzzjcSB BsYWluXGYyXGZzMjJcbGFu ZzEwMzNcaGljaFxmMlxkYm QpVYAfITjhH8qpFoQoWpJr FjppDTH2jJ== Gross assessment was [facility] performed at ([facility], = 2777) Department of Pathology, [address] [place] [id number], Technical component was [facility] performed at ([facility], = 2778) Department of Pathology, [address] [place] [id number], Professional component [facility] was performed at ([facility], code = 277) Department of Pathology, [address] [place] [id number], [facility] [id number] 09:37:47 Test Item Value Reference Range Interpretation Comments Case Report (test code Surgical Pathology = 104) Report Case: [id number] Authorizing Provider: Smith Connors MD Collected: 09/21/2022 11:03 AM Ordering Location: [address] Received: 09/23/2022 11:19 AM Service Pathologist: Rc Quiñones MD Specimen: Brain, Right, Right Frontal Tumor ADDENDUM (test code = [id number] 3381) Ham3lki8GnmXDmqCQoXZhi rMKdgrUttb33tVV0pM51WQ 0oXSZcZoJ7SJUrzrV2Cwj0 CFFpFZWqvJZqK360v1ncr2 kqwvDjsXI3cJrdEGPtbaim YkS1FUakSIQcwbaxELt8XA hqCNHenJD8MXQeeQOkT4Ns WQLvED5nqjg1BRW5LSeqRY UdTcK3ZVGdjNAbTIUnvOat LHutn835VHO8GeKgQPTlth EvaZjgjP1jOqtowcQgWQRQ AGPYTQZZIOKVQEtNZ9OWRa pccGFyXGIwIEJyYWluLCBy iUggwWRidy6gmQPrXOB6kF 2zXCAauNXza1otqhwtaDLt ANVeEcIoAWPDEE0ajrspt9 0vCCFXSqAeV6gTUKnvEGLh IDJccGFyXHBhclxiIENPTU 6YQmXobVUzGVRtWEBvDVs6 qG9oWErsf5P2EAzlwdNvsP NjVf8clBCaJUIfJFFawbBn ixDrZBVeUDWajXOBRT2LIR 3jzInmuusyp3yaazkimHYw SA0eKQisR5HZFtEPOWjwTX IHKPGFKcGEogJuyduiTI1h NMQmFuMlHm2pph2bcDb6vU VzXHBhciAtIFxpIFRFUlRc gWNzOYJgb23xrNVgCA84nO I5pU3oZaZOa6ViINA4NZV3 ZWRccGFyXHBhciBQbGVhc2 IxerWyANXmcU2ikTurOF7r q3udzn7ogJZzBAZgnP8ybM Jph1YcMPY3QQhsDxvxEOYz cGFyfQ== DIAGNOSIS (test code = o5yphDTeLVZqh9yvRPPavQ 3220) FuZzEwMzNcZnRuYmpcdWMx IHtccnRmMVxlcGljOTYwMl bdozCxCPEtaFOxQ0Ppaoex PYwfTI9bEK1gtEajeDHqqU KgOZItBjRhl3vkb675kDQb f8psMWYDihuzhQl3uIltS6 2hm0I7RhmeG66wrSPmIHM7 HSEnMQIvgYYsJRAtDOP3FG WrfNDhP9toJBRoZB1jsdhb KSnrPCzqDOCnqWQ6UKYfaP AvF9ZnVBEmYBidNHUkdyy8 AqQkJg5ntTOqeUwnXKhrDI JkXHBsYWluXGZzMjAgQnJh lM5tLWNfQ4a6RSMwf628OJ bkjJSta2DxAHF8G3ptnO1m ThzcRWTalUSbLRNpAS7mka axN1iwtYNsXYzte5CnyE9v sHXsbZg2NDKIOsONVT9oW2 MqEKMqByqou4BrLFZkmM3r bnRccGFyfXtccnRmMVxzc3 MjRFwbGJSxDC3flPpgIOMa FA7sHUJbF6dgpY3esty8Zo LqPBDrApM3ADKxqhW7Goc9 ARFvFSnug0sdu0ZjDDKpMB j6qBroPbVnEDDty6hgvxGw ZmNoYXJzZXQwIEFyaWFsO3 36i9knq6mjxcAfiUQ6OMYq FPT2MSmfuuNoiiZ3FSrwxP PzKsC6FRadrkCbIGcnlxMy cpJbEuv6XCTmK193QUP4fN cxl6xxJBV9MSIpUPZsGyPi Vg8tfBOwE201GGYsNAYNMV VlbYt0IUTjlrIyscPsdSOI e616W611f9wuWDFhsbGffZ kTcqffa7iaE986OLEvrVJc kmJyPzFqTDQraEBokBN5YJ SiRL6tnzacJDqpXRevQIPx gcO0LMApnQLfF6AwFFRzBY 9czenmOQQ7RWrlMUYnUEK4 ZbOmDJMji4Ltqjr9HeKnwh 7awe04GDE0m0IcrYhhALA8 JAB9CfSsPt9vgBGiGGXnSZ 0eRvSedLKiWJLtus60dKjy YJepXWY0HVOfihUpo3Jfq4 aeHkNynoWuJ7xsP4BmVMFt TFZlQBWsLqIusaHls7Sbr7 ZenEEkjZi0b7drSFWhCIDo qNwjz2zgNNN8FQCsaXGqW2 byrY1qTRYbJF1mdigda3gk DQupYHecWNZrnXI6svK2ZD FseYYxN3ZvnQ3rYYMyTNfc PDJlyqu8ViFbUx9gwQKkpO cyMFxzYmtwYWdlXHBnbmNv bnRccGduZGVjXHBsYWluXH BsYWluXGYwXGZzMjRccWxc bGFuZzEwMzNcaGljaFxmMV vyZmTtHVAlCSmwP7qtZyKy RzKtLwr2ZVFvaNXxLOHaTk j0DXDxsUYdARDQfUdauT0z GPSodDxdnX8mnOM7VJVvjq FpuXXKrL5qJVBHxN4pSoL7 PCThSod0MNQ9FtFuxOEqnZ 0= COMMENT (test code = x4crpFWqHTBtiYM1VjPjFO 3369) Man7oze0XiwJFhqXQeJLwd xAKyhfNhim76oVH3uM04MH 1qHNXlTvI8NXRwprI2Sig7 SYGvKULecOVzL004e6mwo7 zjnnYliLP7pCsuYNCyzxfn DlR2HDufNRNzwlrxWKd2XS ocVESabWI9UOZehPFyV0Ll QACxRH8gdrn4XOG5RQdbKA ThFbP7YTSqsNQpIZWdhRvq UUgzk512STQ5KeOvCNUzfr VunFfplK2oVeYmYOVHSXU4 eT9dswJjtT78QLMfkRUpfS 2rw2GsNCjiWZeiiwAbxSux z09zb4m8hNEjyCpjcJmwiC 1hztGco0YjMT3fhU96kMKb HHZ8qLCdpLxbDFMioBu9h5 LdgxFwYXEszEchtM9xk1ov ciBmaWVsZCkuICBUaGVyZS VajbXhlIWtnxUeoZz4gDPf oEA5RSUafKVwvSZgEEjxDH YlJG7eWEbjx1vwLMMsconf RBNocQt4NDA6eSDeVXHnbw QbTuAucZGfmwErNj3vaBYx GmZstU2fdZIeCM36whMaQW Jyj7Esst1eAS3hLALbFyxz kONjukGghMIdum9yzSQjZU 2uaEPjewYjKPBnBqVeBT3i mV7fdRjupO2btYLtnJOonJ VscYRnnpBoTITkbzJrjr3w GFQ8hGCwMKBsoNOhbINgVN NiASTdhsSce1loQBGzqA32 BuvsHKZsZGSKKNY1PNVgyM XapOKfo7TeoIh5VYfwKQNk LSBHRkFQOiBObyBicmFpbi DdhgOsa4ygnaojNMFgQXQQ lJO1FoXLkl9irWQcwzX4qJ UlWYucPSO1NU2yIQquDVRd XXJ4CB2iynOrlEMdHSitrK fvbOspvxIkerD8TJFxM7Km bHMpXHBhclxwYXIgVGhlIG 86MNBsdYzkKkqeJQokQ9Bk DQZlAM4zu7FhQ89mv4aqcH VnuXO1sOVnTWMpbARlgW2p pL7jVYrwzZjjnG7tv6tgB2 SuoEapW27NGIcXQvSshrRd ZSAyLiAgVGhlcmUgaXMgZm 5jVBybjyhvQlLfmBSvVJ3q THEmaYsnzOTotGDoHQH5fM Amad5qVOacHGDKA03eTRoc MCAgRklTSCBhbmQgXGkgVE WLNWraRNRslQMzsM16NYFt xGN5ZNWrs79jNC9xqQbrdR Qfd3dzwIUwIAOlQROde3Bu UVQjJYJqVNE4dFLndxKqkM k0FMDdEOHqtL3nvPAppfZg hC2wDEgebBiwMlUrzfBut5 U2RAObmO5oWT5uMCJtJF5z yQ4sSAKerjcdZRVkIokxA1 nmAMVljAIwSMWlJMN6HEEi LSH4rD8bZXWtsGi6vAFyyR H5GQGngkIfGZHsmTeuqfSq XZWxP2czwUHpaSOnmRTdmC VzLlxwYXJccGFyZFxwYXJ9 CPT Code(s) (test code k3ejyIMhDILpmLT9MoPyLK = 3357) Uqa4fth1FzoFXtcPPvESmk dQBkcjWwhx60eFO4bS18GX 7aLRGmKwF3TMLoxuX2Fmw6 LCNdGTLepYOnA399t9mwn2 rkzvBofCH5hViqVJAbgyzp HfN7WYhoCSBayiwvLTo6RA piRINaqOK4WINnwYOmL0Im WCVxOS2lzlm8AKG6ETipEV HoXeS5NPTwdEDhGZHzbZii FXity312EZX2QxRzRBUgyz OtyIoqdR2nLzZdRUZ1RECa OrnkLDccVSWoRSg9LnRrAN Y2JQH8WGolERL8 CLINICAL HISTORY (test u7lkpSGxAXRigXN3AjRxOQ code = 3356) Hqd3fzk0VndRMqjLWwKQpe jBTjmiBlkz08rIN7bE52QJ 3cLEAsTkO3VAGvceU5Xak0 RGMxLTOfwQUgB315n4eyu7 yulxKbgPY6kNnfSRBerxvj UqG7GVqqWWSplwkkETj2OZ mjCKShxVE6UAOllVReA5Ry YYBmMH0apfz7FTK9CHvzKW RwOpV8FTKrqWOlZBVcqMmu YPvwf882XZG1FjKqTJCjhj DddXhqjL8sIlBtYWDYhSol tBAcdp6qmCToRJnbRcFklV JjcC2qULGnwj2= GROSS DESCRIPTION (test c5ygsCLhTAQkoLQRDZThX5 code = 6997197098) qavfSjLCGkbGZjI9Bplvnh SEegSS1eXW4spGtlgJXtzI YjPS9ZQSGuEjPkYZWxeCMo toJeUyVaKRCktNVsoBX4DW QfLA5kovobUOaaDDqwDWEx adL8VHVkbQYiR1IjHLQmSA 4lafywGKH8VMivpJ7bpzMY RjzvOv7npPZchNfaPhOoZt NoYXJzZXQwXGZuaWwgQXJp CUi2dY3RJwwjTEP4QHSRPm quSMGiTS9Fh9pmPHKjtZCz SFY9DNummRLlJZAxOVTsFB l1VOJbOLiauKXqZH6iuNel ZrzklGvea0UihKNuMNgiNS JkXCXjBShnNVGyES4CRsDt MDLwQKm4KuLnAGl3MGx9VJ 8JBtWeWAGdBIr7Jns4MOPc CMf6KBncZE7XWDE6EMqwQH j3QEK6CKE6UVSvZRUiFwKx XGYgQXJpYWwgXFxmbCBcXG 5jfVxwbGFpbiBBLiBCcmFp biwgUmlnaHQuXHBhciANCl xlcGljTmVzdERvYzEgDQpc bHRycGFyXGxpbjBccmluMC ANClxsdHJjaFxmczIwIFJl M7TycfSzBFigGDVdtf8grS luIGxhYmVsZWQgdGhlIHBh oMwwvlAsxkSkBQ1qNCMlA3 Occ5Dws97wevMsXcEtQFDc ZCAicmlnaHQgZnJvbnRhbC K6tC6mjrUuqFCcKBP2JiUm rMV4YkFtdBTkZgPlO16mTW xnupBcCXJuWB8pAGFkii3d nA8aQGIsKsZcoOsbq8GqVn YhMgBiuoTkUP49AWKvkwXp g8JroSmvyjBdEIKpIDR4Mq 8ovPZvJWQbgiAXTD7INQSy XGxpbmUgXGxpbmUgUGlsYX IgQXJndWVsbGVzLCBQQSwg GHVzIBVVI4JjAOwuaNkqqF 2sVSMzW73rq5RTf1ReAEOy SLsar7aybLrkk8YcwSEdTY ocPWXhaAKoLNuqdQ2pZnRk a7ziwBu0MTwqedS3JWWzby 8WCtojvB4dDvWxe0ileQi7 EYIXNjxmerR5g3wepLqgc4 ZraFBcEQ5IUd6= MICROSCOPIC DESCRIPTION g8gmcSRcKNCyjKC2VgYsBJ (test code = 3371) Wtu2npw5BksWBchCMbSGbg zTMybzOtdj06tHH3iT06JZ 4wCMSiIkI2IPTxyyF2Fke7 WYArKPYvmBTiQ673v2eos0 zessWslWP2sAwnZXAnerkq MgN4JSriYOTamyreLAt3AD rlUBGaeKI6YAPljPIzH2Yb OWIdHK8lksx1VXS7DSugOO PoDpP7EVLvdHYaVYMskUga XBkvh177EGW3JnXpLHMfzj LhiLkqaD2yZmIsTAUXDSUy j2TaZKRsgHMtqD== SPECIAL STUDIES (test w3bvyUNdFCSpg3ioCUNgeF code = 3376) FuZzEwMzNcZnRuYmpcdWMx ZRdmhzBfVLexd4YdI1YtDp AwMFxhbnNpXGRlZmxhbmcx DSKwMHS8mmMyAGOiYYlqME GmWKqwOx7myEUhjBdbKpNr CGUgn5elsiHTnmztoXx7i4 uhCSLfUcO6gIFgPEypU6ei bmCmwUOlP7HpdAYldOt0n3 izNrObJlW7pPSdIKnpU4ft udKkvBJcZSXhXBf9sH91GL CznQ8ncSIpKFkgevQkDzE9 YKrmACJgXvA8LFZeuIToFW VfT6zaJQUqOQwrJUMxXSbi hVFuNHK2fRezy3L5eATdyW NgeVfxEdZiYrBhKhGYf4Re QCy3sMioX5PkSGJoUmC7aY QgUGFyYWdyYXBoIEZvbnQ7 nRuttuTxg51laHBtMOUbWN DnEqYmvPzvQEGqHIRBh4Db xVjlBBO5qTl0aPucLxicJW Y6Oqa6TN3tgz08cas1dTir OZIfqsisJaX2LNsqCQTtgs waBPd2JEovOIDwdUY2HXNl bHEpY1SkMZMhDW2wfxm4HJ D5ZBdzFMCbWnJ0IBKoqXGt XPCvoIkzRDglc493NMU0Aj GmQE3wI7Wkc1Z5eU4wqPBr FIWdtBOvSrCmECDgao5gfO JeIMbey1RsOXD4wxS4zIRr hQHgUZBaHR98Vqahx8PvNi kew8LpG38zmNR9BCcxd7hf KN2sDsY4ejXxUHxqe2xaeC 9hYwY2HCqjNU5zQL8cVSUs iZ7witttNNTrZyNzcwjwUJ GddPxplzXcUv1myHyzQOU6 HExvZ5icoN4oVhH7RKsvQ0 zxmO1nTAo9LFfeyKR7FLZw iM1kKC7ztoejd7kbPXecEW yjYODnqmM6psS6GRQfxPFl E6LqaV3jYVEpVE9eodjxm0 buAWM3FQuhCLHhTBE4QtVd INQez8Yqowy0RyJno3AwwM IzWBbaJ17dy548EHWypvCb F2lngEHhpksztCQgctkaVR txqmP5MNCoZTIoICtcNSVl XGZzMjJcbGFuZzEwMzNcaG ljaFxmMVxkYmNoXGYxXGxv T2kqNnLbC1XcVJMfAnXqAD aeIUohjTOlzLJqjQR7qA3t MA3nCBXvyZFhW7EeHAWunq MstWHmOKH3iCVnpKLqSE1b IRuwwUDhb7ers5CcF8bntA hwnHG7EQ3qCCLuGSVxHCaz r8HjfZ6vJvywfNBuspqpMP xmczIyXGxhbmcxMDMzXGhp V4rfHdJuOWIvnYnmPFxhx1 NoXGYxXGNmMlxmczIyXGx0 cmNoXHBhclxwYXJccGxhaW 2zBrMcQeQwEsofAX5jNAIf V8qoeKLgAHQhWAWpL3deNp GiaX9rkCycFAlrOgYyXbYj CoEBs303fr7pGQInuHIzxg YFlEQdrH3dWVxpSEmrGZuw gQQbEEmpb2hvDYPxr0s0wW CpCYSrlsMgc9ncXBrwckUl FGXnxGYxkVAsLYNmj18gPL walYarjOxmQYEks1DdyBwy r0DhHaPjOOhbi3CsH20duM JvbCBzbGlkZXMgcnVuIGFs l75vj8mfGQMnBcO4qMWojP A1cUKjzPWuh8UndRhdDJFf g9tnSAHgjd9pcnfvqUZav6 TesM8zeqmtKDhgqHNfofJs JXKvi5z2zPDwYVJzBXHtTW ayoVu2MBAvt378vi9yotD5 eFVjGJP9JXhjGZUxQHIbsw UgZXZhbHVhdGVkXHBsYWlu XGYxXGZzMjJcbGFuZzEwMz NcaGljaFxmMVxkYmNoXGYx YMqqA8nhHpRqC2XqGXSrUb EgjYQtK3apwDRsSFSkCUnu XGYxXGZzMjJcbGFuZzEwMz NcaGljaFxmMVxkYmNoXGYx ELepD4cxKvLfI5RyTAHbGz IgIFxwbGFpblxmMVxmczIy FNinhxfrLGGrDYvsR6goWx GqRCRzyUrsEJlwn3DrIUBh ZHWoFsjhkwRiSLz3fwWtUK BhclxwbGFpblxmMVxmczIy FGdrgjafJGXgBCisD5uuJy WuXPAjmMznNRmye3VsXZMh XGNmMlxmczIyIEltbXVub2 ktn6YiD6tryWukuYS8WUMa Z1mwaGRrnHG9OIG4bS4iBQ zasbQwISJhv4XaAHQwWKLc ZxI1cS7pSPQ3UpWHwBnwVV BsYWluXGYxXGZzMjJcbGFu ZzEwMzNcaGljaFxmMVxkYm QlCRLsCLmpX7xfUkRtU8Wf KFCaQyXoaHkjMFwtTTu2Fb xwbGFpblxmMVxmczIyXGxh sgkzFOJoWMlmV8gfCsCjZA SpbXpmORctt8PwPEKcNEGw MlxmczIyIHMgTWVkaWNhbC EWUV24KHYjLOQuyOhapM5m cRXBRUAhqvY2x0N2NCjtSA SwULw9XSdigdEyPCTheL4v OFGzRS3mYGj6deZbBGGxk4 DzVH5oHMOlpQDpAXX5DKZe w5HkR7Uas2XeRJApEWCpzk 0ryqNiBqBVfXPySIEgcc33 ZHFsNT8eU8vmNLQoKRXuec AtsJYyv1TuGCGmhVH7tPEo XP0SLrKCi92xEQCsWGCBly HaKLVwdOpqgLT6bkV4pA2c LiBUaGUgRkRBIGhhcyBkZX Yyny2fblFxQJTdJQFtf7It xCZhfAHzjdJbR8Usk2LcNP Lpeq03GTmrkPWmqr38DS7s Z2Dsc2YjsK9dELifCOSev2 UtwGSdsMKxYMQwi0NlO2ow nanuEBqriBJgaG9vXXTlVD c4SAYhm4KtIGEvy9XzUoUi wbEbGGXfRSOkGSCmoR57OC E8gOuorCqvfwAhFV6hHTIl oyRxAXRfNKDmrS0yUUmftj VvWUZsswH6a1D8WJrpKWYq tiPzQatwSQS5rsTosvF5xN LsL0rfojolYIcxGQEte5Ah lL8myDBYwOFpl0AwgEXsgC FDkCBoRT0guoJoQB7xRGW9 ODggKENMSUEtODgpIGFzIH W7UQlgXswiBFC8gqXlFGFp n0LbQMavM8ecT94eeFszjD n5cAYhyFqhxIIpfDMoUXKt duG5u2R1DHTjw0EiqixoSS BsYWluXGYyXGZzMjJcbGFu ZzEwMzNcaGljaFxmMlxkYm IxNZLzJHowN3gzWaCiLyNu XikgBKL0wU== Gross assessment was [facility] performed at ([facility], = 2777) Department of Pathology, [address] [place] [address], Technical component was [facility] performed at ([facility], = 9548) Department of Pathology, [address] [place] [address], Professional component [facility] was performed at ([facility], code = 2779) Department of Pathology, [address] [place] [address], [place] [address], [facility] CenterT[facility] [id number] 09:37:47Surgical Pathology Report Case: [id number] Authorizing Provider: Smith Connors MD Collected: 09/21/2022 11:03 AM Ordering Location: [address] Received: 09/23/2022 11:19 AM Service Pathologist: Rc Quiñones MD Specimen: Brain, Right, Right Frontal Tumor ADDENDUM DIAGNOSIS:Brain, right frontal tumor, excision: - Meningioma, [employer] SERV[employer] EMPLOYEE WHO grade 2COMMENTAdditional studies (performed and interpreted at [employer]) show:- CDKN2A FISH: No evidence of abnormalities- TERT promoter mutation: NotdetectedPlease refer to the [employer] report for detail.Addendum electronically signed by Rc Quiñones MD on 10/10/2022 at 9:37 AMBrain, right frontal tumor, excision: - Meningioma, histologically [employer] SERVICE EMPLOYEE WHO grade 2; see comment Signing Pathologist Direct Phone Line: [phone] signedby Rc Quiñones MD on 09/30/2022 at 10:24 AMSections show a meningothelial neoplasm with mildly increased mitotic activity (4 mitoses per high-power field). There is hypercellularity, small cell change, sheeting architecture, and frequent foci of spontaneous necrosis. No definitive macronucleoli is seen. Immunohistochemical stains (performed with appropriate controls) show:- ANGELLA: Patchy positive- GFAP: No brain invasion- Ki67: Proliferative index of 7.4% (by manual calculation in 540 cells)The overall findings are most consistent with a meningioma, histologically [employer] SERV[employer] EMPLOYEE WHO grade 2. There is focal rhabdoid and papillary features. CDKN2A FISH and TERT promoter mutation analysis will be performed, and the result and final grading will be reported in an addendum.Block A2 has adequate tumor cellularity for additional ancillary studies.69726, 27297, 12717, 92396Tzcmh frontal lobe lesionA. Brain, Right.Received in formalin labeled the patient's name, accession number and "right frontal tumor" is a 8.0x 5.5 x 2.5 cm aggregate of recinos-pink soft tissue. Stave Block Roller sections are submitted in A1-A10.ROBERTO CARLOS Choudhary, HT (ASCP)PerformedThe interpretation of this case included the use of immunohistoch emistry or special stains.Control Slides Examined: In-house known positive controls were evaluated along with the test tissue. These control slides run alongside of the patients sample show appropriatestaining. Internal positive and negative controls when available are evaluated Immunohistochemistry technical testing was performed at [facility], Pathology Laboratory where it was developed and its performance characteristics were determined. It has not been cleared or approved by the U.S. Food and Drug Administration. The FDA has determined that such clearance or approval is not necessary. The test is used for clinical purposes. It should not be regarded as investigational orfor research. This laboratory is certified under the Clinical Laboratory Improvement Amendments of 1988 (CLIA-88) as qualified to perform high complexity clinical laboratory testing.[facility], Department of Pathology, [address] [place] [address], [facility], [facility] of Pathology, [address] [place] [address], [facility], Department of Pathology, [address] [place] [address], EXG-Glucose [id number] 11:29:01 Test Item Value Reference Range Interpretation Comments POC-Glucose Meter (test 280 mg/dL 70-110 H : TE STED AT [facility] code = 1538) [address] [place] [address], [facility] 30: After School Teacher/Techni denzel ID = [id number] for NIMESH Mcgowan Lab Interpretation (test Abnormal code = 89554-4) [facility]-Glucose [id number] 11:29:01 Test Item Value Reference Range Interpretation Comments POC-Glucose Meter (test 280 mg/dL 70-110 H : TE STED AT [facility] code = 1538) [address] [place] [address], [facility] 30: After School Teacher/Techni denzel ID = [id number] for NIMESH Mcgowan Lab Interpretation (test Abnormal code = 36209-2) [facility]-Glucose [id number] 11:29:01 Test Item Value Reference Range Interpretation Comments POC-Glucose Meter (test 280 mg/dL 70-110 H : TE STED AT [facility] code = 1538) [address] [facility], 770 30: After School Teacher/Techni denzel ID = [id number] for LYRIC GuerinNIMESH ibrahim Lab Interpretation (test Abnormal code = 68993-5) [facility] [id number] 11:29:01 Test Item Value Reference Range Interpretation Comments POC-GLUCOSE METER 280 mg/dL 70-110 H : TESTED A T [facility] 6720 (BEAKER) (test code [facility], = 1538) [address]: After School Teacher/Techni denzel ID = [id number] for BIBI ChávezRAIZA Rea PRINCESS POCT-GLUCOSE [id number] 08:11:41 Test Item Value Reference Range Interpretation Comments POC-GLUCOSE METER 209 mg/dL 70-110 H : [facility] (test code [facility], = 1538) 27193: After School Teacher/Techni denzel ID = [id number] for RAIZA Rajan PRINCESS BASIC METABOLIC [id number] 05:38:20 Test Item Value Reference Range Interpretation Comments SODIUM (BEAKER) 134 meq/L 136-145 L (test code = 381) POTASSIUM 3.5 meq/L 3.5-5.1 (BEAKER) (test code = 379) CHLORIDE (BEAKER) 100 meq/L 98-107 (test code = 382) CO2 (BEAKER) 26 meq/L 22-29 (test code = 355) BLOOD UREA 47 mg/dL 7-21 H NITROGEN (BEAKER) (test code = 354) CREATININE 2.17 mg/dL 0.57-1.25 H (BEAKER) (test code = 358) GLUCOSE RANDOM 219 mg/dL 70-105 H (BEAKER) (test code = 652) CALCIUM (BEAKER) 7.7 mg/dL 8.4-10.2 L (test code = 697) EGFR (BEAKER) 25 Interpretatio n of eGFR (test code = mL/min/1.73 values Stage De scription 1092) sq m Result G1 Macey l or high >=90 G2 Mildly decreased 60-89 G3a Mildl y to moderately 45-5 9 G3b Moderately to s everely 30-44 G4 Severl y decreased 15-29 G5 Kidney failure <15Reported eGF R is based on the CKD-EPI 2020 equation that d oes not use a race coefficientEsti mated GFR is not as accur ate as Creatinine Erna blayne in predicting glom erular filtration rate . Estimated GFR is not appl icable for dialysis patien ts After School Teacher ID - [id number] 05:33:25 Test Item Value Reference Range Interpretation Comments PHOSPHORUS (BEAKER) (test code = 3.3 mg/dL 2.3-4.7 604) After School Teacher ID - [id number] 05:33:24 Test Item Value Reference Range Interpretation Comments MAGNESIUM (BEAKER) (test code = 2.1 mg/dL 1.6-2.6 627) After School Teacher ID - [id number] (HEMOGRAM ONLY)2022-09-25 05:03:13 Test Item Value Reference Range Interpretation Comments WHITE BLOOD CELL COUNT (BEAKER) 11.4 K/ L 3.5-10.5 H (test code = 775) RED BLOOD CELL COUNT (BEAKER) 4.10 M/ L 3.93-5.22 (test code = 761) HEMOGLOBIN (BEAKER) (test code = 11.1 GM/DL 11.2-15.7 L 410) HEMATOCRIT (BEAKER) (test code = 32.9 % 34.1-44.9 L 411) MEAN CORPUSCULAR VOLUME (BEAKER) 80 fL 79-95 (test code = 753) MEAN CORPUSCULAR HEMOGLOBIN 27.1 pg 25.6-32.2 (BEAKER) (test code = 751) MEAN CORPUSCULAR HEMOGLOBIN CONC 33.7 GM/DL 32.2-35.5 (BEAKER) (test code = 752) RED CELL DISTRIBUTION WIDTH 15.2 % 11.7-14.4 H (BEAKER) (test code = 412) PLATELET COUNT (BEAKER) (test 193 K/CU MM 150-450 code = 756) MEAN PLATELET VOLUME (BEAKER) 9.2 fL 9.4-12.3 L (test code = 754) NUCLEATED RED BLOOD CELLS 0 /100 WBC 0-0 (BEAKER) (test code = 413) POCT-GLUCOSE [id number] 21:32:36 Test Item Value Reference Range Interpretation Comments POC-GLUCOSE METER 262 mg/dL 70-110 H : TESTED A T [facility] 6720 (BEAKER) (test code = BRANDT Mccracken [facility], 1538) [id number]: After School Teacher/Techni denzel ID = [id number] for ANA MONTELONGO POCT-GLUCOSE [id number] 16:33:08 Test Item Value Reference Range Interpretation Comments POC-GLUCOSE METER 269 mg/dL 70-110 H : TESTED A T [facility] 6720 (BEAKER) (test code [facility], = 1538) [address]: After School Teacher/Techni denzel ID = [id number] for JACEYI S -Álvaro, LATAND PRINCESS POCT-GLUCOSE [id number] 12:37:17 Test Item Value Reference Range Interpretation Comments POC-GLUCOSE METER 444 mg/dL 70-110 HH : Notified RN/MD: TESTED (BEAKER) (test code AT [facility] [address] = 1538) [facility], 770 30: After School Teacher/Techni denzel ID = [id number] for LEWI S -Álvaro, LATAND PRINCESS POCT-GLUCOSE [id number] 07:39:37 Test Item Value Reference Range Interpretation Comments POC-GLUCOSE METER 185 mg/dL 70-110 H : TESTED A T [facility] 6720 (BEAKER) (test code [facility], = 1538) [address]: After School Teacher/Techni denzel ID = [id number] for LEWI S -Álvaro, LATAND PRINCESS PHENYTOIN LEVEL, [id number] 06:08:40 Test Item Value Reference Range Interpretation Comments PHENYTOIN (DILANTIN) (BEAKER) (test 4.7 ug/mL 10.0-20.0 L code = 605) After School Teacher ID - PRASHANTH GBASIC METABOLIC [id number] 06:07:50 Test Item Value Reference Range Interpretation Comments SODIUM (BEAKER) 137 meq/L 136-145 (test code = 381) POTASSIUM 4.0 meq/L 3.5-5.1 (BEAKER) (test code = 379) CHLORIDE (BEAKER) 103 meq/L 98-107 (test code = 382) CO2 (BEAKER) 26 meq/L 22-29 (test code = 355) BLOOD UREA 50 mg/dL 7-21 H NITROGEN (BEAKER) (test code = 354) CREATININE 2.32 mg/dL 0.57-1.25 H (BEAKER) (test code = 358) GLUCOSE RANDOM 172 mg/dL 70-105 H (BEAKER) (test code = 652) CALCIUM (BEAKER) 8.1 mg/dL 8.4-10.2 L (test code = 697) EGFR (BEAKER) 23 Interpretatio n of eGFR (test code = mL/min/1.73 values Stage De scription 1092) sq m Result G1 Macey l or high >=90 G2 Mildly decreased 60-89 G3a Mildl y to moderately 45-5 9 G3b Moderately to s everely 30-44 G4 Severl y decreased 15-29 G5 Kidney failure <15Reported eGF R is based on the CKD-EPI 2020 equation that d oes not use a race coefficientEsti mated GFR is not as accur ate as Creatinine Erna cisneros in predicting glom erular filtration rate . Estimated GFR is not appl icable for dialysis patien ts After School Teacher ID - [id number] 06:04:39 Test Item Value Reference Range Interpretation Comments PHOSPHORUS (BEAKER) (test code = 4.4 mg/dL 2.3-4.7 604) After School Teacher ID - [id number] 06:04:38 Test Item Value Reference Range Interpretation Comments MAGNESIUM (BEAKER) (test code = 2.3 mg/dL 1.6-2.6 627) After School Teacher ID - BSCBC (HEMOGRAM ONLY)2022-09-24 05:44:57 Test Item Value Reference Range Interpretation Comments WHITE BLOOD CELL COUNT (BEAKER) 12.4 K/ L 3.5-10.5 H (test code = 775) RED BLOOD CELL COUNT (BEAKER) 4.01 M/ L 3.93-5.22 (test code = 761) HEMOGLOBIN (BEAKER) (test code = 11.0 GM/DL 11.2-15.7 L 410) HEMATOCRIT (BEAKER) (test code = 32.2 % 34.1-44.9 L 411) MEAN CORPUSCULAR VOLUME (BEAKER) 80 fL 79-95 (test code = 753) MEAN CORPUSCULAR HEMOGLOBIN 27.4 pg 25.6-32.2 (BEAKER) (test code = 751) MEAN CORPUSCULAR HEMOGLOBIN CONC 34.2 GM/DL 32.2-35.5 (BEAKER) (test code = 752) RED CELL DISTRIBUTION WIDTH 15.5 % 11.7-14.4 H (BEAKER) (test code = 412) PLATELET COUNT (BEAKER) (test 181 K/CU MM 150-450 code = 756) MEAN PLATELET VOLUME (BEAKER) 9.1 fL 9.4-12.3 L (test code = 754) NUCLEATED RED BLOOD CELLS 0 /100 WBC 0-0 (BEAKER) (test code = 413) POCT-GLUCOSE [id number] 20:36:01 Test Item Value Reference Range Interpretation Comments POC-GLUCOSE METER 249 mg/dL 70-110 H : TESTED A T [facility] 6720 (BEAKER) (test code = [facility], [facility]) [address]: After School Teacher/Techni denzel ID = [id number] for Del bender (contract) Rosie candie POCT-GLUCOSE [id number] 16:28:16 Test Item Value Reference Range Interpretation Comments POC-GLUCOSE METER 197 mg/dL 70-110 H : TESTED A T [facility] 6720 (BEAKER) (test code = [facility], [facility]) [address]: After School Teacher/Techni denzel ID = [id number] for Esther damon Jr. (contract)Samm POCT-GLUCOSE [id number] 11:29:20 Test Item Value Reference Range Interpretation Comments POC-GLUCOSE METER 260 mg/dL 70-110 H : TESTED A T [facility] 6720 (BEAKER) (test code = [facility], 1538) [address]: After School Teacher/Techni denzel ID = [id number] for Esther damon Jr. (contract)Samm POCT-GLUCOSE [id number] 09:24:57 Test Item Value Reference Range Interpretation Comments POC-GLUCOSE METER 237 mg/dL 70-110 H : TESTED A T [facility] 6720 (BEAKER) (test code = [facility], 1538) [address]: After School Teacher/Techni denzel ID = [id number] for Esther damon Jr. (contract)Samm MR, BRAIN, [id number] 08:38:00Unlisted Reason for Exam - Click Yes and Enter Reason Below->No [facility] 1955 Sex: FFINAL REPORT MRI Brain with and without contrast CLINICAL HISTORY: Headache, chronic, no new features Technique: MRI of the brain utilizing axial T1, T2, FLAIR, GRE, DWI, sagittal T1; and postgadolinium axial, sagittal, and coronal T1-weighted images. Comparisons: 09/14/2022 Findings:Status post resection right frontal extra-axial enhancing lesion with 2 mm nodularity along the rightanterior falx, axial image 17, coronal image 4 and minimal enhancing tissue within the right frontalcraniotomy defect interface, axial image 13. Right frontal extra-axial complex including DWI hyperintensity measures 1.2 cm in thickness with right left midline shift of 8 mm. Right frontal lobe T2 FLAIR hyperintensity present. No hydrocephalus. Thin margin of DWI hyperintensity along the resection cavity present. Nonspecific T2 FLAIR hyperintensities typical of chronic microangiopathic ischemic changes present. Orbits and globes are unremarkable. Thin smooth dural enhancement predominantly along the frontal lobes and the right cerebral hemisphere. Paranasal sinuses and mastoid air cells without acute findings. Major intracranial arterial flow voids at the skull base are present. Sphenoid sinus 1.3 cm retention cyst. Expanded sella turcica possibly due to chronic CSF pulsation changes. IMPRESSION: Status post resection of right frontal extra-axial enhancing mass with residual 2 mm nodular enhance ment abutting right anterior falx, possibly vascular or postoperative in origin, but attention on follow-up imaging to exclude residual tumor. Enhancement within the right frontal craniotomy defect suggestive granulation tissue. There is smooth thin dural enhancement, likely postoperative or possibly sequela of intracranial hypotension. Right frontal extra-axial postoperative complex fluid measuring 1.8 cm in thickness with right to left midline shift of 8 mm. Right frontal lobe parenchymal edema isreduced. Resection cavity thin margin of DWI hyperintensity may represent clotted blood product, field inhomogeneity artifact or minimal margin of acute ischemia. Signed: Juan García MDReport Verified Date/Time: 09/23/2022 08:38:34 POCT-GLUCOSE [id number] 07:56:16 Test Item Value Reference Range Interpretation Comments POC-GLUCOSE METER 61 mg/dL 70-110 L : TESTED A T [facility] 6720 (BEAKER) (test code = BRANDT Mccracken [facility], 1538) [address]: After School Teacher/Techni denzel ID = [id number] for Sun puckett Jr. (contract), Tejinder id BASIC METABOLIC [id number] 04:56:42 Test Item Value Reference Range Interpretation Comments SODIUM (BEAKER) 134 meq/L 136-145 L (test code = 381) POTASSIUM 3.8 meq/L 3.5-5.1 (BEAKER) (test code = 379) CHLORIDE (BEAKER) 101 meq/L 98-107 (test code = 382) CO2 (BEAKER) 22 meq/L 22-29 (test code = 355) BLOOD UREA 53 mg/dL 7-21 H NITROGEN (BEAKER) (test code = 354) CREATININE 2.95 mg/dL 0.57-1.25 H (BEAKER) (test code = 358) GLUCOSE RANDOM 62 mg/dL 70-105 L (BEAKER) (test code = 652) CALCIUM (BEAKER) 8.2 mg/dL 8.4-10.2 L (test code = 697) EGFR (BEAKER) 17 Interpretatio n of eGFR (test code = mL/min/1.73 values Stage De scription 1092) sq m Result G1 Macey l or high >=90 G2 Mildly decreased 60-89 G3a Mildl y to moderately 45-5 9 G3b Moderately to s everely 30-44 G4 Severl y decreased 15-29 G5 Kidney failure <15Reported eGF R is based on the CKD-EPI 2020 equation that d oes not use a race coefficientEsti mated GFR is not as accur ate as Creatinine Erna blayne in predicting glom erular filtration rate . Estimated GFR is not appl icable for dialysis patien ts After School Teacher ID - [id number] 04:56:30 Test Item Value Reference Range Interpretation Comments PHOSPHORUS (BEAKER) (test code = 5.5 mg/dL 2.3-4.7 H 604) After School Teacher ID - [id number] 04:56:29 Test Item Value Reference Range Interpretation Comments MAGNESIUM (BEAKER) (test code = 2.2 mg/dL 1.6-2.6 627) After School Teacher ID - BSCBC (HEMOGRAM ONLY)2022-09-23 04:30:07 Test Item Value Reference Range Interpretation Comments WHITE BLOOD CELL COUNT (BEAKER) 13.3 K/ L 3.5-10.5 H (test code = 775) RED BLOOD CELL COUNT (BEAKER) 4.03 M/ L 3.93-5.22 (test code = 761) HEMOGLOBIN (BEAKER) (test code = 10.9 GM/DL 11.2-15.7 L 410) HEMATOCRIT (BEAKER) (test code = 32.4 % 34.1-44.9 L 411) MEAN CORPUSCULAR VOLUME (BEAKER) 80 fL 79-95 (test code = 753) MEAN CORPUSCULAR HEMOGLOBIN 27.0 pg 25.6-32.2 (BEAKER) (test code = 751) MEAN CORPUSCULAR HEMOGLOBIN CONC 33.6 GM/DL 32.2-35.5 (BEAKER) (test code = 752) RED CELL DISTRIBUTION WIDTH 15.3 % 11.7-14.4 H (BEAKER) (test code = 412) PLATELET COUNT (BEAKER) (test 198 K/CU MM 150-450 code = 756) MEAN PLATELET VOLUME (BEAKER) 9.0 fL 9.4-12.3 L (test code = 754) NUCLEATED RED BLOOD CELLS 0 /100 WBC 0-0 (BEAKER) (test code = 413) SARS-CoV2/RT-PCR (Asymptomatic ONLY)2022-09-22 21:21:31 Test Item Value Reference Interpretation Comments Range SARS-COV2/RT-PCR Positive Negative AA The SARS-Co V-2 (test code = target nucleic 21559-2) acids are detec tara in this specime n. The presence SARS-CoV-2 nucl eic acids cannot ru le out co-infectio ns or disease caus ed by other viral or bacterial pathogens. As w ith any molecular t est, mutations withi n the target aimee ons of the Xpert Xp ress SARS-CoV-2 test could affect pr chucky and/or probe binding resulti ng in failure to detect the pres ence of virus or the virus being detected less predictably. Fa lse negative result s may occur if vi marcus is present at levels below th e analytical limi t of detection. This SARS CoV-2 test is a rapid, real-t genet RT-PCR test intended for th e qualitative detection of nucleic acid fr om SARS-CoV-2 in a nasopharyngeal swab specimen collec tara from individual s suspected of COVID-19 by the ir healthcare provider. Resul ts from the Xpert Xpress SARS-CoV -2 test should be correlated with the clinical histor y, epidemiological data, and other data available to the clinician evaluating the patient. Viral nucleic acid ma y persist in vivo , independent of virus viability . Detection of analyte target( s) does not imply that the correspondi ng virus(es) are infectious or a re the causative agents for clin ical symptoms. SONIYA (test code = This test has been SONIYA) authorized by FDA under an EUA for use by authorized laboratories. This test is only authorized for the duration of the declaration that circumstances exist justifying the authorization of emergency use of in vitro diagnostic tests for detection and/or diagnosis of COVID-19 under Section 564(b)(1) of the Federal Food, Drug and Cosmetic Act, 21 U.S.C. 360bbb-3(b)(1), unless the authorization is terminated or revoked sooner. Fact Sheet for Healthcare Providers: https://www.ARPU/Documents/Xp ert%20Xpress%20SAR S%20CoV-2/Fact%20S heets/302-9590%20S ARS-COV-2%20HEALTH CARE%20PROVIDERS%2 0FACT%20SHEET.pdf Fact Sheet for Healthcare Patients: https://www.cephei d.com/Documents/Xp ert%20Xpress%20SAR S%20CoV-2/Fact%20S heets/302-3801%20S ARS-COV-2%20PATIEN T%20FACT%20SHEET.p df Lab Interpretation Abnormal (test code = 68059-7) [facility]22 21:21:31 Test Item Value Reference Interpretation Comments Range SARS-COV2/RT-PCR Positive Negative AA The SARS-Co V-2 (test code = target nucleic 68849-4) acids are detec tara in this specime n. The presence SARS-CoV-2 nucl eic acids cannot ru le out co-infectio ns or disease caus ed by other viral or bacterial pathogens. As w ith any molecular t est, mutations withi n the target aimee ons of the Xpert Xp ress SARS-CoV-2 test could affect pr chucky and/or probe binding resulti ng in failure to detect the pres ence of virus or the virus being detected less predictably. Fa lse negative result s may occur if vi marcus is present at levels below th e analytical limi t of detection. This SARS CoV-2 test is a rapid, real-t genet RT-PCR test intended for th e qualitative detection of nucleic acid fr om SARS-CoV-2 in a nasopharyngeal swab specimen collec tara from individual s suspected of COVID-19 by the ir healthcare provider. Resul ts from the Xpert Xpress SARS-CoV -2 test should be correlated with the clinical histor y, epidemiological data, and other data available to the clinician evaluating the patient. Viral nucleic acid ma y persist in vivo , independent of virus viability . Detection of analyte target( s) does not imply that the correspondi ng virus(es) are infectious or a re the causative agents for clin ical symptoms. SONIYA (test code = This test has been SONIYA) authorized by FDA under an EUA for use by authorized laboratories. This test is only authorized for the duration of the declaration that circumstances exist justifying the authorization of emergency use of in vitro diagnostic tests for detection and/or diagnosis of COVID-19 under Section 564(b)(1) of the Federal Food, Drug and Cosmetic Act, 21 U.S.C. 360bbb-3(b)(1), unless the authorization is terminated or revoked sooner. Fact Sheet for Healthcare Providers: https://www.ARPU/Documents/Xp ert%20Xpress%20SAR S%20CoV-2/Fact%20S heets/302-3802%20S ARS-COV-2%20HEALTH CARE%20PROVIDERS%2 0FACT%20SHEET.pdf Fact Sheet for Healthcare Patients: https://www.ARPU/Documents/Xp ert%20Xpress%20SAR S%20CoV-2/Fact%20S heets/302-3801%20S ARS-COV-2%20PATIEN T%20FACT%20SHEET.p df Lab Interpretation Abnormal (test code = 63915-8) [facility]2022-09-22 21:21:31 Test Item Value Reference Interpretation Comments Range SARS-COV2/RT-PCR Positive Negative AA The SARS-Co V-2 (test code = target nucleic 73073-5) acids are detec tara in this specime n. The presence SARS-CoV-2 nucl eic acids cannot ru le out co-infectio ns or disease caus ed by other viral or bacterial pathogens. As w ith any molecular t est, mutations withi n the target aimee ons of the Xpert Xp ress SARS-CoV-2 test could affect pr chucky and/or probe binding resulti ng in failure to detect the pres ence of virus or the virus being detected less predictably. Fa lse negative result s may occur if vi marcus is present at levels below th e analytical limi t of detection. This SARS CoV-2 test is a rapid, real-t genet RT-PCR test intended for th e qualitative detection of nucleic acid fr om SARS-CoV-2 in a nasopharyngeal swab specimen collec tara from individual s suspected of COVID-19 by the ir healthcare provider. Resul ts from the Xpert Xpress SARS-CoV -2 test should be correlated with the clinical histor y, epidemiological data, and other data available to the clinician evaluating the patient. Viral nucleic acid ma y persist in vivo , independent of virus viability . Detection of analyte target( s) does not imply that the correspondi ng virus(es) are infectious or a re the causative agents for clin ical symptoms. SONIYA (test code = This test has been SONIYA) authorized by FDA under an EUA for use by authorized laboratories. This test is only authorized for the duration of the declaration that circumstances exist justifying the authorization of emergency use of in vitro diagnostic tests for detection and/or diagnosis of COVID-19 under Section 564(b)(1) of the Federal Food, Drug and Cosmetic Act, 21 U.S.C. 360bbb-3(b)(1), unless the authorization is terminated or revoked sooner. Fact Sheet for Healthcare Providers: https://www.ARPU/Documents/Xp ert%20Xpress%20SAR S%20CoV-2/Fact%20S heets/302-3802%20S ARS-COV-2%20HEALTH CARE%20PROVIDERS%2 0FACT%20SHEET.pdf Fact Sheet for Healthcare Patients: https://www.ARPU/Documents/Xp ert%20Xpress%20SAR S%20CoV-2/Fact%20S heets/302-3801%20S ARS-COV-2%20PATIEN T%20FACT%20SHEET.p df Lab Interpretation Abnormal (test code = 33895-3) [facility])2022-09-22 21:21:31 Test Item Value Reference Range Interpretation Comments SARS-COV2/RT-PCR Positive Negative AA The SARS-Co V-2 target (test code = nucleic acids a re detected ) in this specime n. The presence SARS-C oV-2 nucleic acids cannot ru le out co-infections o r disease caused by other viral or bacterial patho gens. As with any molecular t est, mutations withi n the target regions of the Xpert Xpress SARS-CoV-2 test could affect primer and/or p robe binding resulting in fa ilure to detect the pres ence of virus or the virus be ing detected less predictabl y. False negative result s may occur if virus is pre sent at levels below th e analytical limit of detect ion. This SARS CoV-2 test is a rapid, real-time RT-PC R test intended for th e qualitative detection of nu cleic acid from SARS-CoV-2 in a nasopharyngeal swab specimen collected from individuals suspected of CO VID-19 by their [facility] e provider. Results from e Xpert Xpress SARS-CoV -2 test should be corre lated with the clinical hi story, epidemiological data, and other data avai lable to the clinician evalu ating the patient. Viral nucleic acid may persist in vivo, independent of virus viability. Dete ction of analyte target( s) does not imply that the corresponding virus(es) are i nfectious or are the causati ve agents for clinical sympto ms. This test has been authorized by FDA under an EUA for use by authorized laboratories. This test is only authorized for the duration of the declaration that circumstances exist justifying the authorization of emergency use of in vitro diagnostic tests for detection and/or diagnosis of COVID-19 under Section 564(b)(1) of the Federal Food, Drug and Cosmetic Act, 21 U.S.C. 360bbb-3(b)(1), unless the authorization is terminated or revoked sooner. Fact Sheet for Healthcare Providers: https://www.[employer] m/Documents/Xpert%20Xpress%20SARS%20CoV-2/Fact%20Sheets/302-3802%59GCAR-WDM-2%20 HEALTHCARE%20PROVIDERS%20FACT%20SHEET.pdf Fact Sheet for Healthcare Patients: https://www.[employer]/Documents/Xpert%20Xp ress%20SARS%20CoV-2/Fact%20Sheets/302-3801%58LSCH-TKL-7%20PATIENT%20FACT%20SHEET .pdfPOCT-GLUCOSE [id number] 21:16:09 Test Item Value Reference Range Interpretation Comments POC-GLUCOSE METER 93 mg/dL 70-110 : TESTED A T [facility] 6720 (DxTerity) (test code = BRANDT Mccracken [facility], 1538) [address]: After School Teacher/Techni denzel ID = [id number] for Pat sanchez (contract)Rosie POCT-GLUCOSE [id number] 16:04:16 Test Item Value Reference Range Interpretation Comments POC-GLUCOSE METER 135 mg/dL 70-110 H : TESTED A T [facility] 6720 (DxTerity) (test code ANKIT [facility], = 1538) 633[address]: After School Teacher/Techni denzel ID = [id number] for CYNTHIA Mobley POCT-GLUCOSE [id number] 11:44:37 Test Item Value Reference Range Interpretation Comments POC-GLUCOSE METER 89 mg/dL 70-110 : TESTED A T [facility] 6720 (BEAKER) (test code = BRANDT Mccracken [facility], 1538) 17469: After School Teacher/Techni denzel ID = [id number] for CYNTHIA Mobley POCT-GLUCOSE [id number] 08:35:08 Test Item Value Reference Range Interpretation Comments POC-GLUCOSE METER 118 mg/dL 70-110 H : TESTED A T [facility] 6720 (BEAKER) (test code ANKIT [facility], = 1538) 04309: After School Teacher/Techni denzel ID = [id number] for CYNTHIA Mobley BASIC METABOLIC [id number] 05:04:52 Test Item Value Reference Range Interpretation Comments SODIUM (BEAKER) 134 meq/L 136-145 L (test code = 381) POTASSIUM 3.8 meq/L 3.5-5.1 (BEAKER) (test code = 379) CHLORIDE (BEAKER) 101 meq/L 98-107 (test code = 382) CO2 (BEAKER) 23 meq/L 22-29 (test code = 355) BLOOD UREA 47 mg/dL 7-21 H NITROGEN (BEAKER) (test code = 354) CREATININE 2.79 mg/dL 0.57-1.25 H (BEAKER) (test code = 358) GLUCOSE RANDOM 127 mg/dL 70-105 H (BEAKER) (test code = 652) CALCIUM (BEAKER) 7.7 mg/dL 8.4-10.2 L (test code = 697) EGFR (BEAKER) 18 Interpretatio n of eGFR (test code = mL/min/1.73 values Stage De scription 1092) sq m Result G1 Macey l or high >=90 G2 Mildly decreased 60-89 G3a Mildl y to moderately 45-5 9 G3b Moderately to s everely 30-44 G4 Severl y decreased 15-29 G5 Kidney failure <15Reported eGF R is based on the CKD-EPI 2020 equation that d oes not use a race coefficientEsti mated GFR is not as accur ate as Creatinine Erna blayne in predicting glom erular filtration rate . Estimated GFR is not appl icable for dialysis patien ts After School Teacher ID - JONES [id number] 05:02:54 Test Item Value Reference Range Interpretation Comments PHOSPHORUS (BEAKER) (test code = 4.9 mg/dL 2.3-4.7 H 604) After School Teacher ID - JONES [id number] 05:02:53 Test Item Value Reference Range Interpretation Comments MAGNESIUM (BEAKER) (test code = 1.9 mg/dL 1.6-2.6 627) After School Teacher ID - JONES BCBC (HEMOGRAM ONLY)2022-09-22 04:39:48 Test Item Value Reference Range Interpretation Comments WHITE BLOOD CELL COUNT (BEAKER) 17.2 K/ L 3.5-10.5 H (test code = 775) RED BLOOD CELL COUNT (BEAKER) 4.25 M/ L 3.93-5.22 (test code = 761) HEMOGLOBIN (BEAKER) (test code = 11.4 GM/DL 11.2-15.7 410) HEMATOCRIT (BEAKER) (test code = 34.4 % 34.1-44.9 411) MEAN CORPUSCULAR VOLUME (BEAKER) 81 fL 79-95 (test code = 753) MEAN CORPUSCULAR HEMOGLOBIN 26.8 pg 25.6-32.2 (BEAKER) (test code = 751) MEAN CORPUSCULAR HEMOGLOBIN CONC 33.1 GM/DL 32.2-35.5 (BEAKER) (test code = 752) RED CELL DISTRIBUTION WIDTH 15.4 % 11.7-14.4 H (BEAKER) (test code = 412) PLATELET COUNT (BEAKER) (test 256 K/CU MM 150-450 code = 756) MEAN PLATELET VOLUME (BEAKER) 9.1 fL 9.4-12.3 L (test code = 754) NUCLEATED RED BLOOD CELLS 0 /100 WBC 0-0 (BEAKER) (test code = 413) POCT-GLUCOSE [id number] 00:24:51 Test Item Value Reference Range Interpretation Comments POC-GLUCOSE METER 163 mg/dL 70-110 H : TESTED A T [facility] (BEAKER) (test code [facility], = 1538) 460[address]: After School Teacher/Techni denzel ID = [id number] for SURYA LEE PHENYTOIN LEVEL, [id number] 20:14:49 Test Item Value Reference Range Interpretation Comments PHENYTOIN (DILANTIN) (BEAKER) (test 3.3 ug/mL 10.0-20.0 L code = 605) After School Teacher ID - JOVANY LBASIC METABOLIC [id number] 19:53:04 Test Item Value Reference Range Interpretation Comments SODIUM (BEAKER) 140 meq/L 136-145 (test code = 381) POTASSIUM 3.5 meq/L 3.5-5.1 (BEAKER) (test code = 379) CHLORIDE (BEAKER) 105 meq/L 98-107 (test code = 382) CO2 (BEAKER) 22 meq/L 22-29 (test code = 355) BLOOD UREA 46 mg/dL 7-21 H NITROGEN (BEAKER) (test code = 354) CREATININE 2.54 mg/dL 0.57-1.25 H (BEAKER) (test code = 358) GLUCOSE RANDOM 213 mg/dL 70-105 H (BEAKER) (test code = 652) CALCIUM (BEAKER) 7.8 mg/dL 8.4-10.2 L (test code = 697) EGFR (BEAKER) 20 Interpretatio n of eGFR (test code = mL/min/1.73 values Stage De scription 1092) sq m Result G1 Macey l or high >=90 G2 Mildly decreased 60-89 G3a Mildl y to moderately 45-5 9 G3b Moderately to s everely 30-44 G4 Severl y decreased 15-29 G5 Kidney failure <15Reported eGF R is based on the CKD-EPI 2021 equation that d oes not use a race coefficientEsti mated GFR is not as accur ate as Creatinine Erna blayne in predicting glom erular filtration rate . Estimated GFR is not appl icable for dialysis patien ts After School Teacher ID - JONES [id number] 19:51:06 Test Item Value Reference Range Interpretation Comments PHOSPHORUS (BEAKER) (test code = 5.4 mg/dL 2.3-4.7 H 604) After School Teacher ID - JONES [id number] 19:51:05 Test Item Value Reference Range Interpretation Comments MAGNESIUM (BEAKER) (test code = 1.9 mg/dL 1.6-2.6 627) After School Teacher ID - JONES BPOCT-GLUCOSE [id number] 13:45:53 Test Item Value Reference Range Interpretation Comments POC-GLUCOSE METER 184 mg/dL 70-110 H : TESTED A T [facility] 6720 (BEAKER) (test code ANKIT [facility], = 1538) 31958: After School Teacher/Techni denzel ID = [id number] for CYNTHIA Mobley POCT-GLUCOSE [id number] 08:16:15 Test Item Value Reference Range Interpretation Comments POC-GLUCOSE METER 126 mg/dL 70-110 H : TESTED A T [facility] 6720 (BEAKER) (test code = BRANDT Mccracken [facility], 1538) 817[address]: After School Teacher/Techni denzel ID = [id number] for VICENTA BECK BASIC METABOLIC [id number] 07:25:00 Test Item Value Reference Range Interpretation Comments SODIUM (BEAKER) 140 meq/L 136-145 (test code = 381) POTASSIUM 3.9 meq/L 3.5-5.1 (BEAKER) (test code = 379) CHLORIDE (BEAKER) 106 meq/L 98-107 (test code = 382) CO2 (BEAKER) 25 meq/L 22-29 (test code = 355) BLOOD UREA 41 mg/dL 7-21 H NITROGEN (BEAKER) (test code = 354) CREATININE 2.39 mg/dL 0.57-1.25 H (BEAKER) (test code = 358) GLUCOSE RANDOM 140 mg/dL 70-105 H (BEAKER) (test code = 652) CALCIUM (BEAKER) 8.5 mg/dL 8.4-10.2 (test code = 697) EGFR (BEAKER) 22 Interpretatio n of eGFR (test code = mL/min/1.73 values Stage De scription 1092) sq m Result G1 Macey l or high >=90 G2 Mildly decreased 60-89 G3a Mildl y to moderately 45-5 9 G3b Moderately to s everely 30-44 G4 Severl y decreased 15-29 G5 Kidney failure <15Reported eGF R is based on the CKD-EPI 2020 equation that d oes not use a race coefficientEsti mated GFR is not as accur ate as Creatinine Erna blayne in predicting glom erular filtration rate . Estimated GFR is not appl icable for dialysis patien ts After School Teacher ID - JOVANY [id number] 07:24:14 Test Item Value Reference Range Interpretation Comments PHOSPHORUS (BEAKER) (test code = 3.9 mg/dL 2.3-4.7 604) After School Teacher ID - JOVANY [id number] 07:24:13 Test Item Value Reference Range Interpretation Comments MAGNESIUM (BEAKER) (test code = 2.1 mg/dL 1.6-2.6 627) After School Teacher ID - JOVANY LCBC (HEMOGRAM ONLY)2022-09-21 06:14:49 Test Item Value Reference Range Interpretation Comments WHITE BLOOD CELL COUNT (BEAKER) 11.3 K/ L 3.5-10.5 H (test code = 775) RED BLOOD CELL COUNT (BEAKER) 5.07 M/ L 3.93-5.22 (test code = 761) HEMOGLOBIN (BEAKER) (test code = 13.8 GM/DL 11.2-15.7 410) HEMATOCRIT (BEAKER) (test code = 40.8 % 34.1-44.9 411) MEAN CORPUSCULAR VOLUME (BEAKER) 81 fL 79-95 (test code = 753) MEAN CORPUSCULAR HEMOGLOBIN 27.2 pg 25.6-32.2 (BEAKER) (test code = 751) MEAN CORPUSCULAR HEMOGLOBIN CONC 33.8 GM/DL 32.2-35.5 (BEAKER) (test code = 752) RED CELL DISTRIBUTION WIDTH 14.9 % 11.7-14.4 H (BEAKER) (test code = 412) PLATELET COUNT (BEAKER) (test 358 K/CU MM 150-450 code = 756) MEAN PLATELET VOLUME (BEAKER) 9.5 fL 9.4-12.3 (test code = 754) NUCLEATED RED BLOOD CELLS 0 /100 WBC 0-0 (BEAKER) (test code = 413) POCT-GLUCOSE [id number] 21:17:20 Test Item Value Reference Range Interpretation Comments POC-GLUCOSE METER 213 mg/dL 70-110 H : Notified RN/MD: (BEAKER) (test code = TESTED AT [facility] [id number] 3928) [facility], [address]: After School Teacher/Techni denzel ID = [id number] for LESTER BONILLA SARS-COV2/RT-PCR ([facility])2022-09-20 18:39:44 Test Item Value Reference Range Interpretation Comments SARS-COV2/RT-PCR Negative Negative The SARS-Co V-2 target (test code = nucleic acids a re not 6532210) detected in thi s specimen. Negative result s do not preclude SARS-C oV-2 infection and s hould not be used as the estelle e basis for patient managem ent decisions. Nega tive results must be combine d with clinical observ ations, patient history , and epidemiological information. A false negativ e result may occur if a spec imen is improperly brian ected, transported or handled. This SARS CoV-2 test is a rapid, real-time RT-PC R test intended for th e qualitative detection of nu cleic acid from SARS-CoV-2 in a nasopharyngeal swab specimen collected from individuals suspected of CO VID-19 by their healthcar e provider. This test has been authorized by FDA under an EUA for use by authorized laboratories. This test is only authorized for the duration of the declaration that circumstances exist justifying the authorization of emergency use of in vitro diagnostic tests for detection and/or diagnosis of COVID-19 under Section 564(b)(1) of the Federal Food, Drug and Cosmetic Act, 21 U.S.C. 360bbb-3(b)(1), unless the authorization is terminated or revoked sooner. Fact Sheet for Healthcare Providers: https://www.[employer] m/Documents/Xpert%20Xpress%20SARS%20CoV-2/Fact%20Sheets/899-7532%08ZIXR-RON-3%20 HEALTHCARE%20PROVIDERS%20FACT%20SHEET.pdf Fact Sheet for Healthcare Patients: https://www.[employer]/Documents/Xpert%20Xp ress%20SARS%20CoV-2/Fact%20Sheets/543-3801%07AXKE-ZUY-3%20PATIENT%20FACT%20SHEET .pdfPOCT-GLUCOSE [id number] 16:56:54 Test Item Value Reference Range Interpretation Comments POC-GLUCOSE METER 317 mg/dL 70-110 H : TESTED A T [facility] 6720 (BEAKER) (test code = [place], 1538) [address]: After School Teacher/Techni denzel ID = [id number] for LUTHER BENAVIDES [id number] 16:22:54 Test Item Value Reference Range Interpretation Comments PARTIAL THROMBOPLASTIN TIME 22.9 seconds 22.5-36.0 (BEAKER) (test code = 760) PROTHROMBIN TIME/[id number] 16:22:34 Test Item Value Reference Range Interpretation Comments PROTIME (BEAKER) 14.4 seconds 11.9-14.2 H (test code = 759) INR (BEAKER) (test 1.19 See_Comment [Automat ed message] code = 370) The system [employer] generated this result transmitted ref erence range: <=5.90. The reference range was not used to int erpret this result as normal/abnormal . RECOMMENDED COUMADIN/WARFARIN INR THERAPY RANGESSTANDARD DOSE: 2.0 - 3.0 Includes: PROPHYLAXIS for venous thrombosis, systemic embolization; TREATMENT for venous thrombosis and/or pulmonary embolus.HIGH RISK: Target INR is 2.5-3.5 for patients with mechanical heart valves.RAD, CHEST, 1 VIEW, NON [id number] 13:35:00Reason for exam:->preopShould this be performed at the bedside?->YesMOUNTAIN VIEW CAMPUSName: TIM VIDAL : 1955 Sex: FFINAL REPORT RAD, CHEST, 1 VIEW, NON DEPT TECHNIQUE: Frontal view(s) of the chest. INDICATION: preop COMPARISON: None FINDINGS/IMPRESSION: Lines/Tubes: None Lungs/pleura: No focal consolidation. Suggestion of mild interstitial edema. No pleural effusion. No pneumothorax. Heart and Mediastinum: Prominent cardiac silhouette, accentuated by technique. Soft Tissues and Bones: Multilevel degenerative changes throughout the visible spine. Signed: Nico Irby Verified Date/Time: 09/20/2022 13:35:10 Reading Location: [address] Ortho Consult Reading Room POCT-GLUCOSE [id number] 12:08:43 Test Item Value Reference Range Interpretation Comments POC-GLUCOSE METER 297 mg/dL 70-110 H : TESTED A T [facility] 6720 (BEAKER) (test code = [facility], 1538) 33125: After School Teacher/Techni denzel ID = [id number] for AK INSONU, LUTHER POCT-GLUCOSE [id number] 08:24:47 Test Item Value Reference Range Interpretation Comments POC-GLUCOSE METER 231 mg/dL 70-110 H : TESTED A T [facility] 6720 (BEAKER) (test code = [facility], 1538) 18372: After School Teacher/Techni denzel ID = [id number] for AK INSONU, LUTHER BASIC METABOLIC [id number] 07:48:48 Test Item Value Reference Range Interpretation Comments SODIUM (BEAKER) 137 meq/L 136-145 (test code = 381) POTASSIUM 3.5 meq/L 3.5-5.1 (BEAKER) (test code = 379) CHLORIDE (BEAKER) 100 meq/L 98-107 (test code = 382) CO2 (BEAKER) 26 meq/L 22-29 (test code = 355) BLOOD UREA 49 mg/dL 7-21 H NITROGEN (BEAKER) (test code = 354) CREATININE 2.77 mg/dL 0.57-1.25 H (BEAKER) (test code = 358) GLUCOSE RANDOM 202 mg/dL 70-105 H (BEAKER) (test code = 652) CALCIUM (BEAKER) 8.3 mg/dL 8.4-10.2 L (test code = 697) EGFR (BEAKER) 18 Interpretatio n of eGFR (test code = mL/min/1.73 values Stage De scription 1092) sq m Result G1 Macey l or high >=90 G2 Mildly decreased 60-89 G3a Mildl y to moderately 45-5 9 G3b Moderately to s everely 30-44 G4 Severl y decreased 15-29 G5 Kidney failure <15Reported eGF R is based on the CKD-EPI 2020 equation that d oes not use a race coefficientEsti mated GFR is not as accur ate as Creatinine Erna blayne in predicting glom erular filtration rate . Estimated GFR is not appl icable for dialysis patien ts After School Teacher ID - [id number] 07:17:58 Test Item Value Reference Range Interpretation Comments MAGNESIUM (BEAKER) (test code = 2.1 mg/dL 1.6-2.6 627) After School Teacher ID - [id number] 07:17:58 Test Item Value Reference Range Interpretation Comments PHOSPHORUS (BEAKER) (test code = 4.1 mg/dL 2.3-4.7 604) After School Teacher ID - RITCHIEOCBC (HEMOGRAM ONLY)2022-09-20 06:47:52 Test Item Value Reference Range Interpretation Comments WHITE BLOOD CELL COUNT (BEAKER) 11.5 K/ L 3.5-10.5 H (test code = 775) RED BLOOD CELL COUNT (BEAKER) 5.00 M/ L 3.93-5.22 (test code = 761) HEMOGLOBIN (BEAKER) (test code = 13.6 GM/DL 11.2-15.7 410) HEMATOCRIT (BEAKER) (test code = 40.6 % 34.1-44.9 411) MEAN CORPUSCULAR VOLUME (BEAKER) 81 fL 79-95 (test code = 753) MEAN CORPUSCULAR HEMOGLOBIN 27.2 pg 25.6-32.2 (BEAKER) (test code = 751) MEAN CORPUSCULAR HEMOGLOBIN CONC 33.5 GM/DL 32.2-35.5 (BEAKER) (test code = 752) RED CELL DISTRIBUTION WIDTH 14.7 % 11.7-14.4 H (BEAKER) (test code = 412) PLATELET COUNT (BEAKER) (test 355 K/CU MM 150-450 code = 756) MEAN PLATELET VOLUME (BEAKER) 10.3 fL 9.4-12.3 (test code = 754) NUCLEATED RED BLOOD CELLS 0 /100 WBC 0-0 (BEAKER) (test code = 413) POCT-GLUCOSE [id number] 21:30:04 Test Item Value Reference Range Interpretation Comments POC-GLUCOSE METER 73 mg/dL 70-110 : TESTED A T [facility] 6720 (BEAKER) (test code = [facility], [facility]) 17445: After School Teacher/Techni denzel ID = [id number] for ERIN GARCIA POCT-GLUCOSE [id number] 17:34:45 Test Item Value Reference Range Interpretation Comments POC-GLUCOSE METER 185 mg/dL 70-110 H : TESTED A T [facility] 6720 (BEAKER) (test code = [facility], [facility]8) 38363: After School Teacher/Techni denzel ID = [id number] for JARON DGERS, ANAMARIAECA POCT-GLUCOSE [id number] 12:37:58 Test Item Value Reference Range Interpretation Comments POC-GLUCOSE METER 317 mg/dL 70-110 H : TESTED A T [facility] 6720 (BEAKER) (test code = [facility], [facility]8) 70283: After School Teacher/Techni denzel ID = [id number] for RO DGERS, ANAMARIAECA POCT-GLUCOSE [id number] 07:43:15 Test Item Value Reference Range Interpretation Comments POC-GLUCOSE METER 95 mg/dL 70-110 : TESTED A T [facility] 6720 (BEAKER) (test code = [facility], [facility]) 42280: After School Teacher/Techni denzel ID = [id number] for RODG ERS, ANAMARIAECA BASIC METABOLIC [id number] 06:19:12 Test Item Value Reference Range Interpretation Comments SODIUM (BEAKER) 137 meq/L 136-145 (test code = 381) POTASSIUM 3.7 meq/L 3.5-5.1 (BEAKER) (test code = 379) CHLORIDE (BEAKER) 102 meq/L 98-107 (test code = 382) CO2 (BEAKER) 29 meq/L 22-29 (test code = 355) BLOOD UREA 51 mg/dL 7-21 H NITROGEN (BEAKER) (test code = 354) CREATININE 2.84 mg/dL 0.57-1.25 H (BEAKER) (test code = 358) GLUCOSE RANDOM 103 mg/dL 70-105 (BEAKER) (test code = 652) CALCIUM (BEAKER) 8.3 mg/dL 8.4-10.2 L (test code = 697) EGFR (BEAKER) 18 Interpretatio n of eGFR (test code = mL/min/1.73 values Stage De scription 1092) sq m Result G1 Macey l or high >=90 G2 Mildly decreased 60-89 G3a Mildl y to moderately 45-5 9 G3b Moderately to s everely 30-44 G4 Severl y decreased 15-29 G5 Kidney failure <15Reported eGF R is based on the CKD-EPI 2020 equation that d oes not use a race coefficientEsti mated GFR is not as accur ate as Creatinine Erna blayne in predicting glom erular filtration rate . Estimated GFR is not appl icable for dialysis patien ts After School Teacher ID - JOVANY [id number] 06:18:49 Test Item Value Reference Range Interpretation Comments PHOSPHORUS (BEAKER) (test code = 4.4 mg/dL 2.3-4.7 604) After School Teacher ID - JOVANY [id number] 06:18:48 Test Item Value Reference Range Interpretation Comments MAGNESIUM (BEAKER) (test code = 2.2 mg/dL 1.6-2.6 627) After School Teacher ID - JOVANY LCBC (HEMOGRAM ONLY)2022-09-19 06:02:24 Test Item Value Reference Range Interpretation Comments WHITE BLOOD CELL COUNT (BEAKER) 11.4 K/ L 3.5-10.5 H (test code = 775) RED BLOOD CELL COUNT (BEAKER) 4.96 M/ L 3.93-5.22 (test code = 761) HEMOGLOBIN (BEAKER) (test code = 13.4 GM/DL 11.2-15.7 410) HEMATOCRIT (BEAKER) (test code = 40.0 % 34.1-44.9 411) MEAN CORPUSCULAR VOLUME (BEAKER) 81 fL 79-95 (test code = 753) MEAN CORPUSCULAR HEMOGLOBIN 27.0 pg 25.6-32.2 (BEAKER) (test code = 751) MEAN CORPUSCULAR HEMOGLOBIN CONC 33.5 GM/DL 32.2-35.5 (BEAKER) (test code = 752) RED CELL DISTRIBUTION WIDTH 14.7 % 11.7-14.4 H (BEAKER) (test code = 412) PLATELET COUNT (BEAKER) (test 360 K/CU MM 150-450 code = 756) MEAN PLATELET VOLUME (BEAKER) 9.5 fL 9.4-12.3 (test code = 754) NUCLEATED RED BLOOD CELLS 0 /100 WBC 0-0 (BEAKER) (test code = 413) POCT-GLUCOSE [id number] 21:23:08 Test Item Value Reference Range Interpretation Comments POC-GLUCOSE METER 165 mg/dL 70-110 H : TESTED A T [facility] 6720 (BEAKER) (test code = [facility], 1538) 24984: After School Teacher/Techni denzel ID = [id number] for JORGE L JAMESERIN PRYOR POCT-GLUCOSE [id number] 18:14:31 Test Item Value Reference Range Interpretation Comments POC-GLUCOSE METER 157 mg/dL 70-110 H : TESTED A T [facility] 6720 (BEAKER) (test code = [facility], 1538) 24255: After School Teacher/Techni denzel ID = [id number] for AK INSONU, LUTHER POCT-GLUCOSE [id number] 17:29:33 Test Item Value Reference Range Interpretation Comments POC-GLUCOSE METER 66 mg/dL 70-110 L : TESTED A T [facility] 6720 (BEAKER) (test code = [facility], 1538) 29314: After School Teacher/Techni denzel ID = [id number] for ECHO GABRIEL, LUTHER POCT-GLUCOSE [id number] 13:18:13 Test Item Value Reference Range Interpretation Comments POC-GLUCOSE METER 242 mg/dL 70-110 H : TESTED A T [facility] 6720 (BEAKER) (test code = [facility], 1538) 11465: After School Teacher/Techni denzel ID = [id number] for AK INSONU, LUTHER BASIC METABOLIC [id number] 08:13:29 Test Item Value Reference Range Interpretation Comments SODIUM (BEAKER) 140 meq/L 136-145 (test code = 381) POTASSIUM 4.2 meq/L 3.5-5.1 Specimen slight ly (BEAKER) (test hemolyzed code = 379) CHLORIDE (BEAKER) 105 meq/L 98-107 (test code = 382) CO2 (BEAKER) 23 meq/L 22-29 (test code = 355) BLOOD UREA 42 mg/dL 7-21 H NITROGEN (BEAKER) (test code = 354) CREATININE 2.82 mg/dL 0.57-1.25 H Specimen slight ly (BEAKER) (test hemolyzed code = 358) GLUCOSE RANDOM 113 mg/dL 70-105 H (BEAKER) (test code = 652) CALCIUM (BEAKER) 8.8 mg/dL 8.4-10.2 (test code = 697) EGFR (BEAKER) 18 Interpretatio n of eGFR (test code = mL/min/1.73 values Stage De scription 1092) sq m Result G1 Macey l or high >=90 G2 Mildly decreased 60-89 G3a Mildl y to moderately 45-5 9 G3b Moderately to s everely 30-44 G4 Severl y decreased 15-29 G5 Kidney failure <15Reported eGF R is based on the CKD-EPI 2020 equation that d oes not use a race coefficientEsti mated GFR is not as accur ate as Creatinine Erna blayne in predicting glom erular filtration rate . Estimated GFR is not appl icable for dialysis patien ts After School Teacher ID - PRASHANTH [id number] 08:07:09 Test Item Value Reference Range Interpretation Comments PHOSPHORUS (BEAKER) 4.5 mg/dL 2.3-4.7 Specimen slightly (test code = 604) hemolyzed After School Teacher ID - PRAHSANTH [id number] 08:07:08 Test Item Value Reference Range Interpretation Comments MAGNESIUM (BEAKER) 2.2 mg/dL 1.6-2.6 Specimen slightly (test code = 627) hemolyzed After School Teacher ID - PRASHANTH GPOCT-GLUCOSE [id number] 07:56:03 Test Item Value Reference Range Interpretation Comments POC-GLUCOSE METER 122 mg/dL 70-110 H : TESTED A T [facility] 67[facility] (BEAKER) (test code = [facility] [place], 1538) 77268: After School Teacher/Techni denzel ID = [id number] for AK LILYKONSTANTINLUTHER Richard CBC (HEMOGRAM ONLY)2022-09-18 06:38:28 Test Item Value Reference Range Interpretation Comments WHITE BLOOD CELL COUNT (BEAKER) 12.0 K/ L 3.5-10.5 H (test code = 775) RED BLOOD CELL COUNT (BEAKER) 5.07 M/ L 3.93-5.22 (test code = 761) HEMOGLOBIN (BEAKER) (test code = 13.8 GM/DL 11.2-15.7 410) HEMATOCRIT (BEAKER) (test code = 41.2 % 34.1-44.9 411) MEAN CORPUSCULAR VOLUME (BEAKER) 81 fL 79-95 (test code = 753) MEAN CORPUSCULAR HEMOGLOBIN 27.2 pg 25.6-32.2 (BEAKER) (test code = 751) MEAN CORPUSCULAR HEMOGLOBIN CONC 33.5 GM/DL 32.2-35.5 (BEAKER) (test code = 752) RED CELL DISTRIBUTION WIDTH 15.0 % 11.7-14.4 H (BEAKER) (test code = 412) PLATELET COUNT (BEAKER) (test 386 K/CU MM 150-450 code = 756) MEAN PLATELET VOLUME (BEAKER) 9.3 fL 9.4-12.3 L (test code = 754) NUCLEATED RED BLOOD CELLS 0 /100 WBC 0-0 (BEAKER) (test code = 413) POCT-GLUCOSE [id number] 01:16:08 Test Item Value Reference Range Interpretation Comments POC-GLUCOSE METER 100 mg/dL 70-110 : TESTED A T [facility] 6720 (BEAKER) (test code = [facility], 153) 26281: After School Teacher/Techni denzel ID = [id number] for CELESTINO WALKER POCT-GLUCOSE [id number] 21:21:30 Test Item Value Reference Range Interpretation Comments POC-GLUCOSE METER 81 mg/dL 70-110 : TESTED A T [facility] 6720 (BEAKER) (test code = [facility], 153) 52858: After School Teacher/Techni denzel ID = [id number] for FELISA MORIN ERIN POCT-GLUCOSE [id number] 16:51:20 Test Item Value Reference Range Interpretation Comments POC-GLUCOSE METER 214 mg/dL 70-110 H : TESTED A T [facility] 6720 (BEAKER) (test code = [facility], 1538) 48109: After School Teacher/Techni denzel ID = [id number] for Zonia Roach POCT-GLUCOSE [id number] 11:20:08 Test Item Value Reference Range Interpretation Comments POC-GLUCOSE METER 290 mg/dL 70-110 H : TESTED A T [facility] 6720 (BEAKER) (test code = [facility], 1538) 51263: After School Teacher/Techni denzel ID = [id number] for Glory Berger POCT-GLUCOSE [id number] 06:22:44 Test Item Value Reference Range Interpretation Comments POC-GLUCOSE METER 234 mg/dL 70-110 H : TESTED A T [facility] 6720 (BEAKER) (test code = [facility], 1538) 18073: After School Teacher/Techni denzel ID = [id number] for Tasha Pike HIGH SENSITIVITY TROPONIN [id number] 05:39:51 Test Item Value Reference Range Interpretation Comments HIGH SENSITIVITY 13 pg/ml See_Comment [Automated message] TROPONIN I (test code = The system which [id number]) generated this result transmitted ref erence range: <=17. Th e reference range was not used to int erpret this result as normal/abnormal . After School Teacher ID - MARINA SILVAhe CAR EXAMINER STAT High Sensitivity Troponin-I results should be used in conjunction with other diagnostic information such as ECG, clinical observations and information, and patient symptoms to aid in the diagnosis of [place].BASIC METABOLIC [id number] 05:33:24 Test Item Value Reference Range Interpretation Comments SODIUM (BEAKER) 141 meq/L 136-145 (test code = 381) POTASSIUM 3.3 meq/L 3.5-5.1 L (BEAKER) (test code = 379) CHLORIDE (BEAKER) 104 meq/L 98-107 (test code = 382) CO2 (BEAKER) 25 meq/L 22-29 (test code = 355) BLOOD UREA 28 mg/dL 7-21 H NITROGEN (BEAKER) (test code = 354) CREATININE 2.19 mg/dL 0.57-1.25 H (BEAKER) (test code = 358) GLUCOSE RANDOM 166 mg/dL 70-105 H (BEAKER) (test code = 652) CALCIUM (BEAKER) 8.8 mg/dL 8.4-10.2 (test code = 697) EGFR (BEAKER) 24 Interpretatio n of eGFR (test code = mL/min/1.73 values Stage De scription 1092) sq m Result G1 Macey l or high >=90 G2 Mildly decreased 60-89 G3a Mildl y to moderately 45-5 9 G3b Moderately to s everely 30-44 G4 Severl y decreased 15-29 G5 Kidney failure <15Reported eGF R is based on the CKD-EPI 2020 equation that d oes not use a race coefficientEsti mated GFR is not as accur ate as Creatinine Erna blayne in predicting glom erular filtration rate . Estimated GFR is not appl icable for dialysis patien ts After School Teacher ID - MARINA [id number] 05:29:30 Test Item Value Reference Range Interpretation Comments PHOSPHORUS (BEAKER) (test code = 4.5 mg/dL 2.3-4.7 604) After School Teacher ID - MARINA [id number] 05:29:29 Test Item Value Reference Range Interpretation Comments MAGNESIUM (BEAKER) (test code = 1.8 mg/dL 1.6-2.6 627) After School Teacher ID - MARINA WCBC (HEMOGRAM ONLY)2022-09-17 05:01:11 Test Item Value Reference Range Interpretation Comments WHITE BLOOD CELL COUNT (BEAKER) 11.3 K/ L 3.5-10.5 H (test code = 775) RED BLOOD CELL COUNT (BEAKER) 5.12 M/ L 3.93-5.22 (test code = 761) HEMOGLOBIN (BEAKER) (test code = 13.8 GM/DL 11.2-15.7 410) HEMATOCRIT (BEAKER) (test code = 40.7 % 34.1-44.9 411) MEAN CORPUSCULAR VOLUME (BEAKER) 80 fL 79-95 (test code = 753) MEAN CORPUSCULAR HEMOGLOBIN 27.0 pg 25.6-32.2 (BEAKER) (test code = 751) MEAN CORPUSCULAR HEMOGLOBIN CONC 33.9 GM/DL 32.2-35.5 (BEAKER) (test code = 752) RED CELL DISTRIBUTION WIDTH 14.6 % 11.7-14.4 H (BEAKER) (test code = 412) PLATELET COUNT (BEAKER) (test 434 K/CU MM 150-450 code = 756) MEAN PLATELET VOLUME ([facility]) 9.5 fL 9.4-12.3 (test code = 754) NUCLEATED RED BLOOD CELLS 0 /100 WBC 0-0 ([facility]) (test code = 413) POCT-GLUCOSE [id number] 21:31:41 Test Item Value Reference Range Interpretation Comments POC-GLUCOSE METER 96 mg/dL 70-110 : TESTED A T [facility] ([facility]) (test code = [facility], 153) 66682: After School Teacher/Techni denzel ID = [id number] for Nikos yomiTheodora 2D Echo W/Doppler(CW/PW/Color)2022-09-16 17:24:44Ejection FractionSLEH [facility](CW/PW/Color)2022-09-16 17:24:44Ejection FractionSLEH [facility] W/Doppler(CW/PW/Color) 2022-09-16 17:24:44Ejection FractionSLEH [facility] [id number] 17:02:35 Test Item Value Reference Range Interpretation Comments POC-GLUCOSE METER 119 mg/dL 70-110 H : TESTED A T [facility] 6720 ([facility]) (test code = [facility], 153) 00543: After School Teacher/Techni denzel ID = [id number] for [place], Glory POCT-GLUCOSE [id number] 11:16:52 Test Item Value Reference Range Interpretation Comments POC-GLUCOSE METER 213 mg/dL 70-110 H : TESTED A T [facility] 6720 ([facility]) (test code = [facility], 153) 17995: After School Teacher/Techni denzel ID = [id number] for [place], Glory [id number] 11:13:20 Test Item Value Reference Range Interpretation Comments RPR SCREEN ([facility]) (test code = Nonreactive Nonreactive 420) POCT-GLUCOSE [id number] 07:05:53 Test Item Value Reference Range Interpretation Comments POC-GLUCOSE METER 236 mg/dL 70-110 H : TESTED A T [facility] 6720 (BEAKER) (test code = [facility] [place], 1538) 18604: After School Teacher/Techni denzel ID = [id number] for Theodora Boswell BASIC METABOLIC [id number] 04:30:40 Test Item Value Reference Range Interpretation Comments SODIUM (BEAKER) 138 meq/L 136-145 (test code = 381) POTASSIUM 3.4 meq/L 3.5-5.1 L Specimen slight ly (BEAKER) (test hemolyzed code = 379) CHLORIDE (BEAKER) 105 meq/L 98-107 (test code = 382) CO2 (BEAKER) 22 meq/L 22-29 (test code = 355) BLOOD UREA 28 mg/dL 7-21 H NITROGEN (BEAKER) (test code = 354) CREATININE 2.36 mg/dL 0.57-1.25 H Specimen slight ly (BEAKER) (test hemolyzed code = 358) GLUCOSE RANDOM 191 mg/dL 70-105 H (BEAKER) (test code = 652) CALCIUM (BEAKER) 8.9 mg/dL 8.4-10.2 (test code = 697) EGFR (BEAKER) 22 Interpretatio n of eGFR (test code = mL/min/1.73 values Stage De scription 1092) sq m Result G1 Macey l or high >=90 G2 Mildly decreased 60-89 G3a Mildl y to moderately 45-5 9 G3b Moderately to s everely 30-44 G4 Sever ly decreased 15-29 G5 Kidney failure <15Repo rted eGFR is based on the CKD-EPI 2020 equation t hat does not use a race coefficientEsti mated GFR is not as accur ate as Creatinine Erna cisneros in predicting glom erular filtration rate . Estimated GFR is not appl icable for dialysis patien ts After School Teacher ID - [id number] 04:26:18 Test Item Value Reference Range Interpretation Comments PHOSPHORUS (BEAKER) 2.5 mg/dL 2.3-4.7 Specimen slightly (test code = 604) hemolyzed After School Teacher ID - BSHEPATIC FUNCTION [id number] 04:26:18 Test Item Value Reference Range Interpretation Comments TOTAL PROTEIN (BEAKER) 6.8 gm/dL 6.0-8.3 Speci men slightly (test code = 770) hemolyzed ALBUMIN (BEAKER) (test 3.5 g/dL 3.5-5.0 Speci men slightly code = 1145) hemolyzed BILIRUBIN TOTAL 1.3 mg/dL 0.2-1.2 H Specimen sli ghtly (BEAKER) (test code = hemoly zed 377) BILIRUBIN DIRECT 0.4 mg/dL 0.1-0.5 Specimen sl ightly (BEAKER) (test code = hemoly zed 706) ALKALINE PHOSPHATASE 83 U/L 40-150 (BEAKER) (test code = 346) AST (SGOT) (BEAKER) 38 U/L 5-34 H Specimen slightly (test code = 353) hemolyzed ALT (SGPT) (BEAKER) 41 U/L 6-55 Specimen slightly (test code = 347) hemolyzed After School Teacher ID - [id number] 04:26:17 Test Item Value Reference Range Interpretation Comments MAGNESIUM (BEAKER) 1.7 mg/dL 1.6-2.6 Specimen slightly (test code = 627) hemolyzed After School Teacher ID - BSCBC (HEMOGRAM ONLY)2022-09-16 02:28:28 Test Item Value Reference Range Interpretation Comments WHITE BLOOD CELL COUNT (BEAKER) 15.4 K/ L 3.5-10.5 H (test code = 775) RED BLOOD CELL COUNT (BEAKER) 4.87 M/ L 3.93-5.22 (test code = 761) HEMOGLOBIN (BEAKER) (test code = 13.3 GM/DL 11.2-15.7 410) HEMATOCRIT (BEAKER) (test code = 39.1 % 34.1-44.9 411) MEAN CORPUSCULAR VOLUME (BEAKER) 80 fL 79-95 (test code = 753) MEAN CORPUSCULAR HEMOGLOBIN 27.3 pg 25.6-32.2 (BEAKER) (test code = 751) MEAN CORPUSCULAR HEMOGLOBIN CONC 34.0 GM/DL 32.2-35.5 (BEAKER) (test code = 752) RED CELL DISTRIBUTION WIDTH 14.4 % 11.7-14.4 (BEAKER) (test code = 412) PLATELET COUNT (BEAKER) (test 384 K/CU MM 150-450 code = 756) MEAN PLATELET VOLUME (BEAKER) 9.1 fL 9.4-12.3 L (test code = 754) NUCLEATED RED BLOOD CELLS 0 /100 WBC 0-0 (BEAKER) (test code = 413) POCT-GLUCOSE [id number] 22:50:32 Test Item Value Reference Range Interpretation Comments POC-GLUCOSE METER 246 mg/dL 70-110 H : TESTED A T [facility] 6720 (BEAKER) (test code = [facility] [place], 1538) [id number]: After School Teacher/Techni denzel ID = [id number] for Theodora Boswell SARS-COV2/RT-PCR ([facility])2022-09-15 19:36:17 Test Item Value Reference Range Interpretation Comments SARS-COV2/RT-PCR Negative Negative The SARS-Co V-2 target (test code = nucleic acids a re not [id number]) detected in thi s specimen. Negative result s do not preclude SARS-C oV-2 infection and s hould not be used as the estelle e basis for patient managem ent decisions. Nega tive results must be combine d with clinical observ ations, patient history , and epidemiological information. A false negativ e result may occur if a spec imen is improperly brian ected, transported or handled. This SARS CoV-2 test is a rapid, real-time RT-PC R test intended for th e qualitative detection of nu cleic acid from SARS-CoV-2 in a nasopharyngeal swab specimen collected from individuals suspected of CO VID-19 by their healthcar e provider. This test has been authorized by FDA under an EUA for use by authorized laboratories. This test is only authorized for the duration of the declaration that circumstances exist justifying the authorization of emergency use of in vitro diagnostic tests for detection and/or diagnosis of COVID-19 under Section 564(b)(1) of the Federal Food, Drug and Cosmetic Act, 21 U.S.C. 360bbb-3(b)(1), unless the authorization is terminated or revoked sooner. Fact Sheet for Healthcare Providers: https://www.cephe[employer].co m/Documents/Xpert%20Xpress%20SARS%20CoV-2/Fact%20Sheets/302-3802%05GFLQ-NPM-8%20 HEALTHCARE%20PROVIDERS%20FACT%20SHEET.pdf Fact Sheet for Healthcare Patients: https://www.[employer]/Documents/Xpert%20Xp ress%20SARS%20CoV-2/Fact%20Sheets/302-3801%79RKWA-PHL-3%20PATIENT%20FACT%20SHEET .pdfPOCT-GLUCOSE [id number] 16:25:06 Test Item Value Reference Range Interpretation Comments POC-GLUCOSE METER 251 mg/dL 70-110 H : TESTED A T [facility] [address] ([facility]) (test code = BRANDT Mccracken [facility], 1538) [id number]: After School Teacher/Techni denzel ID = [id number] for Glory Berger POCT-GLUCOSE [id number] 11:28:54 Test Item Value Reference Range Interpretation Comments POC-GLUCOSE METER 199 mg/dL 70-110 H : Notified RN/MD: ([facility]) (test code = TESTED AT [facility] 6720 1538) [facility], [id number]: After School Teacher/Techni denzel ID = [id number] for Tiffanie Murray BASIC METABOLIC [id number] 09:41:42 Test Item Value Reference Range Interpretation Comments SODIUM (BEAKER) 141 meq/L 136-145 (test code = 381) POTASSIUM 3.8 meq/L 3.5-5.1 Specimen slight ly (BEAKER) (test hemolyzed code = 379) CHLORIDE (BEAKER) 110 meq/L 98-107 H (test code = 382) CO2 (BEAKER) 22 meq/L 22-29 (test code = 355) BLOOD UREA 24 mg/dL 7-21 H NITROGEN (BEAKER) (test code = 354) CREATININE 2.25 mg/dL 0.57-1.25 H Specimen slight ly (BEAKER) (test hemolyzed code = 358) GLUCOSE RANDOM 166 mg/dL 70-105 H (BEAKER) (test code = 652) CALCIUM (BEAKER) 9.2 mg/dL 8.4-10.2 (test code = 697) EGFR (BEAKER) 24 Interpretatio n of eGFR (test code = mL/min/1.73 values Stage De scription 1092) sq m Result G1 Macey l or high >=90 G2 Mildly decreased 60-89 G3a Mildl y to moderately 45-5 9 G3b Moderately to s everely 30-44 G4 Severl y decreased 15-29 G5 Kidney failure <15Reported eGF R is based on the CKD-EPI 2021 equation that d oes not use a race coefficientEsti mated GFR is not as accur ate as Creatinine Erna lbayne in predicting glom erular filtration rate . Estimated GFR is not appl icable for dialysis patien ts After School Teacher ID - toya wPOCT-GLUCOSE [id number] 07:49:03 Test Item Value Reference Range Interpretation Comments POC-GLUCOSE METER 136 mg/dL 70-110 H : TESTED A T [facility] (BEAKER) (test code = [place] [place], 1538) 544[address]: After School Teacher/Techni denzel ID = [id number] for Glory Berger BASIC METABOLIC [id number] 06:39:07 Test Item Value Reference Range Interpretation Comments SODIUM (BEAKER) 140 meq/L 136-145 (test code = 381) POTASSIUM 3.8 meq/L 3.5-5.1 Specimen slight ly (BEAKER) (test hemolyzed code = 379) CHLORIDE (BEAKER) 111 meq/L 98-107 H (test code = 382) CO2 (BEAKER) 21 meq/L 22-29 L (test code = 355) BLOOD UREA 25 mg/dL 7-21 H NITROGEN (BEAKER) (test code = 354) CREATININE 2.29 mg/dL 0.57-1.25 H Specimen slight ly (BEAKER) (test hemolyzed code = 358) GLUCOSE RANDOM 147 mg/dL 70-105 H (BEAKER) (test code = 652) CALCIUM (BEAKER) 8.5 mg/dL 8.4-10.2 (test code = 697) EGFR (BEAKER) 23 Interpretatio n of eGFR (test code = mL/min/1.73 values Stage De scription 1092) sq m Result G1 Macey l or high >=90 G2 Mildly decreased 60-89 G3a Mildl y to moderately 45-5 9 G3b Moderately to s everely 30-44 G4 Severl y decreased 15-29 G5 Kidney failure <15Reported eGF R is based on the CKD-EPI 2021 equation that d oes not use a race coefficientEsti mated GFR is not as accur ate as Creatinine Erna cisneros in predicting glom erular filtration rate . Estimated GFR is not appl icable for dialysis patien ts After School Teacher ID - MARINA WPOCT-GLUCOSE [id number] 06:26:19 Test Item Value Reference Range Interpretation Comments POC-GLUCOSE METER 127 mg/dL 70-110 H : TESTED A T [facility] (BEAKER) (test code = [place], 1538) 09[address]: After School Teacher/Techni denzel ID = [id number] for KENNEDY PRUETT CBC W/PLT COUNT & AUTO [id number] 06:18:40 Test Item Value Reference Range Interpretation Comments WHITE BLOOD CELL COUNT (BEAKER) 15.5 K/ L 3.5-10.5 H (test code = 775) RED BLOOD CELL COUNT (BEAKER) 4.41 M/ L 3.93-5.22 (test code = 761) HEMOGLOBIN (BEAKER) (test code = 12.0 GM/DL 11.2-15.7 410) HEMATOCRIT (BEAKER) (test code = 35.3 % 34.1-44.9 411) MEAN CORPUSCULAR VOLUME (BEAKER) 80 fL 79-95 (test code = 753) MEAN CORPUSCULAR HEMOGLOBIN 27.2 pg 25.6-32.2 (BEAKER) (test code = 751) MEAN CORPUSCULAR HEMOGLOBIN CONC 34.0 GM/DL 32.2-35.5 (BEAKER) (test code = 752) RED CELL DISTRIBUTION WIDTH 13.7 % 11.7-14.4 (BEAKER) (test code = 412) PLATELET COUNT (BEAKER) (test 391 K/CU MM 150-450 code = 756) MEAN PLATELET VOLUME (BEAKER) 9.6 fL 9.4-12.3 (test code = 754) NUCLEATED RED BLOOD CELLS 0 /100 WBC 0-0 (BEAKER) (test code = 413) NEUTROPHILS RELATIVE PERCENT 88 % (BEAKER) (test code = 429) LYMPHOCYTES RELATIVE PERCENT 10 % (BEAKER) (test code = 430) MONOCYTES RELATIVE PERCENT 2 % (BEAKER) (test code = 431) EOSINOPHILS RELATIVE PERCENT 0 % (BEAKER) (test code = 432) BASOPHILS RELATIVE PERCENT 0 % (BEAKER) (test code = 437) NEUTROPHILS ABSOLUTE COUNT 13.58 K/ L 1.56-6.13 H (BEAKER) (test code = 670) LYMPHOCYTES ABSOLUTE COUNT 1.48 K/ L 1.18-3.74 (BEAKER) (test code = 414) MONOCYTES ABSOLUTE COUNT (BEAKER) 0.30 K/ L 0.24-0.36 (test code = 415) EOSINOPHILS ABSOLUTE COUNT 0.00 K/ L 0.04-0.36 L (BEAKER) (test code = 416) BASOPHILS ABSOLUTE COUNT (BEAKER) 0.01 K/ L 0.01-0.08 (test code = 417) IMMATURE GRANULOCYTES-RELATIVE 0.80 % 0.00-1.00 PERCENT (BEAKER) (test code = 2801) POCT-GLUCOSE [id number] 05:52:16 Test Item Value Reference Range Interpretation Comments POC-GLUCOSE METER 142 mg/dL 70-110 H : TESTED A T [facility] 6720 (BEAKER) (test code = [facility], 1538) 45169: After School Teacher/Techni denzel ID = [id number] for SYDNEY PRUETTA POCT-GLUCOSE [id number] 03:49:50 Test Item Value Reference Range Interpretation Comments POC-GLUCOSE METER 238 mg/dL 70-110 H : TESTED A T [facility] 6720 (BEAKER) (test code = [facility], 1538) 34088: After School Teacher/Techni denzel ID = [id number] for JANET PRUETTETHA POCT-GLUCOSE [id number] 02:04:20 Test Item Value Reference Range Interpretation Comments POC-GLUCOSE METER 212 mg/dL 70-110 H : TESTED A T [facility] 6720 (BEAKER) (test code = [facility], 1538) 58657: After School Teacher/Techni denzel ID = [id number] for TABATHA FOX, KENNEDY BASIC METABOLIC [id number] 01:28:24 Test Item Value Reference Range Interpretation Comments SODIUM (BEAKER) 138 meq/L 136-145 (test code = 381) POTASSIUM 3.7 meq/L 3.5-5.1 (BEAKER) (test code = 379) CHLORIDE (BEAKER) 108 meq/L 98-107 H (test code = 382) CO2 (BEAKER) 23 meq/L 22-29 (test code = 355) BLOOD UREA 19 mg/dL 7-21 NITROGEN (BEAKER) (test code = 354) CREATININE 2.07 mg/dL 0.57-1.25 H (BEAKER) (test code = 358) GLUCOSE RANDOM 244 mg/dL 70-105 H (BEAKER) (test code = 652) CALCIUM (BEAKER) 8.4 mg/dL 8.4-10.2 (test code = 697) EGFR (BEAKER) 26 Interpretatio n of eGFR (test code = mL/min/1.73 values Stage De scription 1092) sq m Result G1 Macey l or high >=90 G2 Mildly decreased 60-89 G3a Mildl y to moderately 45-5 9 G3b Moderately to s everely 30-44 G4 Severl y decreased 15-29 G5 Kidney failure <15Reported eGF R is based on the CKD-EPI 2020 equation that d oes not use a race coefficientEsti mated GFR is not as accur ate as Creatinine Erna blayne in predicting glom erular filtration rate . Estimated GFR is not appl icable for dialysis patien ts After School Teacher ID - PIAYA LPOCT-GLUCOSE [id number] 00:49:40 Test Item Value Reference Range Interpretation Comments POC-GLUCOSE METER 244 mg/dL 70-110 H : TESTED A T [facility] 6720 (DxTerity) (test code = [facility], 153) 34894: After School Teacher/Techni denzel ID = [id number] for LE WIS, KENNEDY POCT-GLUCOSE [id number] 23:32:41 Test Item Value Reference Range Interpretation Comments POC-GLUCOSE METER 257 mg/dL 70-110 H : [facility] T [facility] (test code = [facility], 1538) 41073: After School Teacher/Techni denzel ID = [id number] for LE WIS, KENNEDY POCT-GLUCOSE [id number] 22:23:01 Test Item Value Reference Range Interpretation Comments POC-GLUCOSE METER 243 mg/dL 70-110 H : TESTED A T [facility] 6720 ([employer]Ter[employer]) (test code = [facility], 1538) 27653: After School Teacher/Techni denzel ID = [id number] for LE WIS, KENNEDY BASIC METABOLIC [id number] 22:01:35 Test Item Value Reference Range Interpretation Comments SODIUM (BEAKER) 137 meq/L 136-145 (test code = 381) POTASSIUM 3.4 meq/L 3.5-5.1 L (BEAKER) (test code = 379) CHLORIDE (BEAKER) 108 meq/L 98-107 H (test code = 382) CO2 (BEAKER) 21 meq/L 22-29 L (test code = 355) BLOOD UREA 19 mg/dL 7-21 NITROGEN (BEAKER) (test code = 354) CREATININE 2.11 mg/dL 0.57-1.25 H (BEAKER) (test code = 358) GLUCOSE RANDOM 275 mg/dL 70-105 H (BEAKER) (test code = 652) CALCIUM (BEAKER) 8.3 mg/dL 8.4-10.2 L (test code = 697) EGFR (BEAKER) 26 Interpretatio n of eGFR (test code = mL/min/1.73 values Stage De scription 1092) sq m Result G1 Macey l or high >=90 G2 Mildly decreased 60-89 G3a Mildl y to moderately 45-5 9 G3b Moderately to s everely 30-44 G4 Severl y decreased 15-29 G5 Kidney failure <15Reported eGF R is based on the CKD-EPI 2020 equation that d oes not use a race coefficientEsti mated GFR is not as accur ate as Creatinine Erna blayne in predicting glom erular filtration rate . Estimated GFR is not appl icable for dialysis patien ts After School Teacher ID - MITCHPOCT-GLUCOSE [id number] 21:04:01 Test Item Value Reference Range Interpretation Comments POC-GLUCOSE METER 250 mg/dL 70-110 H : TESTED A T [facility] 6720 (BEAKER) (test code = [facility] [employer] [facility], 1538) 39124: After School Teacher/Techni denzel ID = [id number] for TABATHA FOX KENNEDY POCT-GLUCOSE [id number] 19:15:32 Test Item Value Reference Range Interpretation Comments POC-GLUCOSE METER 223 mg/dL 70-110 H : TESTED A T [facility] 6720 (BEAKER) (test code = [facility] [employer] [facility], 1538) 41397: After School Teacher/Techni denzel ID = [id number] for Joanna Parks POCT-GLUCOSE [id number] 18:02:59 Test Item Value Reference Range Interpretation Comments POC-GLUCOSE METER 192 mg/dL 70-110 H : TESTED A T [facility] 6720 (BEAKER) (test code = [facility], 1538) 21781: After School Teacher/Techni denzel ID = [id number] for Joanna Parks POCT-GLUCOSE [id number] 16:27:17 Test Item Value Reference Range Interpretation Comments POC-GLUCOSE METER 151 mg/dL 70-110 H : TESTED A T [facility] 6720 (BEAKER) (test code = [facility] Mccracken [facility], 1538) 78442: After School Teacher/Techni denzel ID = [id number] for Joanna Parks BASIC METABOLIC [id number] 15:59:27 Test Item Value Reference Range Interpretation Comments SODIUM (BEAKER) 141 meq/L 136-145 (test code = 381) POTASSIUM 3.5 meq/L 3.5-5.1 (BEAKER) (test code = 379) CHLORIDE (BEAKER) 111 meq/L 98-107 H (test code = 382) CO2 (BEAKER) 20 meq/L 22-29 L (test code = 355) BLOOD UREA 28 mg/dL 7-21 H NITROGEN (BEAKER) (test code = 354) CREATININE 2.32 mg/dL 0.57-1.25 H (BEAKER) (test code = 358) GLUCOSE RANDOM 162 mg/dL 70-105 H (BEAKER) (test code = 652) CALCIUM (BEAKER) 8.1 mg/dL 8.4-10.2 L (test code = 697) EGFR (BEAKER) 23 Interpretatio n of eGFR (test code = mL/min/1.73 values Stage De scription 1092) sq m Result G1 Macey l or high >=90 G2 Mildly decreased 60-89 G3a Mildl y to moderately 45-5 9 G3b Moderately to s everely 30-44 G4 Severl y decreased 15-29 G5 Kidney failure <15Reported eGF R is based on the CKD-EPI 1 equation that d oes not use a race coefficientEsti mated GFR is not as accur ate as Creatinine Erna blayne in predicting glom erular filtration rate . Estimated GFR is not appl icable for dialysis patien ts After School Teacher ID - PIAYA LPOCT-GLUCOSE [id number] 15:40:14 Test Item Value Reference Range Interpretation Comments POC-GLUCOSE METER 169 mg/dL 70-110 H : TESTED A T [facility] 67[facility] (LU) (test code = [place], 1538) 84605: After School Teacher/Techni denzel ID = [id number] for Joanna Parks MR, BRAIN, [id number] 14:29:00STEALTH Protocol - 1mm cuts, 0 gantry, include entire head and tip of nose Unlisted Reason for Exam - Click Yes and Enter Reason Below->No Does the patient have an implanted electronic device?->No [facility] 1955 Sex: FFINAL REPORT MR, BRAIN, WITH \\T\\ WITHOUT CONTRAST INDICATION: Brain mass or lesion TECHNIQUE: Multiplanar, multisequence MR imaging of the brain was obtained. COMPARISON: None FINDINGS: Enhancing right frontal convexity mass which appears to extra-axial and intraparenchymal. There is probably abutment with the anterior skull base and the right orbital roof. Additionally, there is broad about the anterior aspect of the superior sagittal sinus which demonstrates lack of normal flow void on some images (axial T2 image #25). Consequent 1.1 cm leftward midline shift. There is a partially empty, expanded sella. This may represent a normal variant in older individuals and may also be seen in the setting of intracranial hypertension. No restricted diffusion to suggest recent ischemic insult. No abnormal susceptibility. Scattered T2/FLAIR hyperintense foci within the periventricular and subcortical white matter are nonspecific, however, statistically represent chronic microvascular ischemic changes. No hydrocephalus. Orbits are within normal limits. No obstructive paranasal sinus disease. IMPRESSION: Enhancing right frontal convexity mass which appears to extra-axial and intraparenchymal. There is probably abutment with the anterior skull base and the right orbital roof. Additionally, there is broad about the anterior aspect of the superior sagittal sinus which demonstrates lack of normal flow void on some images (axial T2 image #25), with indentation of the superior sagittal sinusnot excluded. Consequent 1.1 cm leftward midline shift. Signed: Xochilt Delarosa MDReport Verified Date/Time: 09/14/2022 14:29:22 BASI METABOLIC [id number] 12:24:01 Test Item Value Reference Range Interpretation Comments SODIUM (BEAKER) 142 meq/L 136-145 (test code = 381) POTASSIUM 3.4 meq/L 3.5-5.1 L Specimen slight ly (BEAKER) (test hemolyzed code = 379) CHLORIDE (BEAKER) 108 meq/L 98-107 H (test code = 382) CO2 (BEAKER) 21 meq/L 22-29 L (test code = 355) BLOOD UREA 29 mg/dL 7-21 H NITROGEN (BEAKER) (test code = 354) CREATININE 2.52 mg/dL 0.57-1.25 H Specimen slight ly (BEAKER) (test hemolyzed code = 358) GLUCOSE RANDOM 257 mg/dL 70-105 H (BEAKER) (test code = 652) CALCIUM (BEAKER) 8.6 mg/dL 8.4-10.2 (test code = 697) EGFR (BEAKER) 21 Interpretatio n of eGFR (test code = mL/min/1.73 values Stage De scription 1092) sq m Result G1 Macey l or high >=90 G2 Mildly decreased 60-89 G3a Mildl y to moderately 45-5 9 G3b Moderately to s everely 30-44 G4 Severl y decreased 15-29 G5 Kidne y failure <15Reported eGF R is based on the CKD-EPI 2020 equation that d oes not use a race coefficientEsti mated GFR is not as accur ate as Creatinine Erna cisneros in predicting glom erular filtration rate . Estimated GFR is not appl icable for dialysis patien ts After School Teacher ID - PIAYA LPOCT-GLUCOSE [id number] 12:23:48 Test Item Value Reference Range Interpretation Comments POC-GLUCOSE METER 222 mg/dL 70-110 H : TESTED A T [facility] 6720 (BEAKER) (test code = [facility], 1538) 88539: After School Teacher/Techni denzel ID = [id number] for Joanna Parks HEMOGLOBIN [id number] 12:20:51 Test Item Value Reference Range Interpretation Comments HEMOGLOBIN A1C 10.9 % See_Comment H [Automated m essage] ELECTROPHORESIS (AKER) The system which (test code = 3811) generated this result transmitted ref erence range: <=5.6%. The reference range was not used to int erpret this result as normal/abnormal . "The A1c is measured using a NGSP-certified method. HbA1c value equal to or greater than 6.5% as thediagnosis cutoff for diabetes. An HbA1c value of 5.7- 6.4% indicates increased risk for diabetes (prediabetes)."After School Teacher ID - ADMPOCT- GLUCOSE [id number] 11:32:38 Test Item Value Reference Range Interpretation Comments POC-GLUCOSE METER 257 mg/dL 70-110 H : TESTED A T [facility] 6720 (BEAKER) (test code = [facility], 153) 05634: After School Teacher/Techni denzel ID = [id number] for Joanna Parks POCT-GLUCOSE [id number] 10:32:35 Test Item Value Reference Range Interpretation Comments POC-GLUCOSE METER 268 mg/dL 70-110 H : TESTED A T [facility] 6720 (BEAKER) (test code = [facility], 1538) 82970: After School Teacher/Techni denzel ID = [id number] for Joanna Parks BASIC METABOLIC [id number] 09:56:09 Test Item Value Reference Range Interpretation Comments SODIUM (BEAKER) 141 meq/L 136-145 (test code = 381) POTASSIUM 3.6 meq/L 3.5-5.1 Specimen slight ly (BEAKER) (test hemolyzed code = 379) CHLORIDE (BEAKER) 107 meq/L 98-107 (test code = 382) CO2 (BEAKER) 18 meq/L 22-29 L (test code = 355) BLOOD UREA 30 mg/dL 7-21 H NITROGEN (BEAKER) (test code = 354) CREATININE 2.67 mg/dL 0.57-1.25 H Specimen slight ly (BEAKER) (test hemolyzed code = 358) GLUCOSE RANDOM 364 mg/dL 70-105 H (BEAKER) (test code = 652) CALCIUM (BEAKER) 8.6 mg/dL 8.4-10.2 (test code = 697) EGFR (BEAKER) 19 Interpretatio n of eGFR (test code = mL/min/1.73 values Stage De scription 1092) sq m Result G1 Macey l or high >=90 G2 Mildly decreased 60-89 G3a Mild ly to moderately 45-5 9 G3b Moderately to s everely 30-44 G4 Severl y decreased 15-29 G5 Kidney failure <15Reported eGF R is based on the CKD-EPI 2020 equation that d oes not use a race coefficientEsti mated GFR is not as accur ate as Creatinine Erna blayne in predicting glom erular filtration rate . Estimated GFR is not appl icable for dialysis patien ts After School Teacher ID - PIAYA LPOCT-GLUCOSE [id number] 09:36:10 Test Item Value Reference Range Interpretation Comments POC-GLUCOSE METER 288 mg/dL 70-110 H : TESTED A T [facility] ([facility]) (test code = [facility], 1538) 52780: After School Teacher/Techni denzel ID = [id number] for Joanna Parks HEMOGLOBIN [id number] 09:09:43 Test Item Value Reference Range Interpretation Comments HEMOGLOBIN A1C 10.9 % See_Comment H [Automated m essage] ELECTROPHORESIS ([facility]) The system which (test code = 3811) generated this result transmitted ref erence range: <=5.6%. The reference range was not used to int erpret this result as normal/abnormal . "The A1c is measured using a NGSP-certified method. HbA1c value equal to or greater than 6.5% as thediagnosis cutoff for diabetes. An HbA1c value of 5.7- 6.4% indicates increased risk for diabetes (prediabetes)."After School Teacher ID - ADMPOCT- GLUCOSE [id number] 08:45:15 Test Item Value Reference Range Interpretation Comments POC-GLUCOSE METER 367 mg/dL 70-110 H : [facility] (test code = [facility], 153) 23442: After School Teacher/Techni denzel ID = [id number] for Joanna Parks POCT-GLUCOSE [id number] 06:57:19 Test Item Value Reference Range Interpretation Comments POC-GLUCOSE METER 405 mg/dL 70-110 HH : Notified RN/MD: ([facility]) (test code = TESTED AT [facility] 67[address] 1538) [facility], [address]: After School Teacher/Techni denzel ID = [id number] for Go nzalez, Luis KETONE, [id number] 05:35:07 Test Item Value Reference Range Interpretation Comments KETONES, BLOOD ([facility]) (test code 2.8 mmol/L <0.4 H = 1103) POCT-GLUCOSE [id number] 05:23:54 Test Item Value Reference Range Interpretation Comments POC-GLUCOSE METER 388 mg/dL 70-110 H : [facility]) (test code = [facility], 153) 22892: After School Teacher/Techni denzel ID = [id number] for SYDNEY PRUETTA POCT-GLUCOSE [id number] 04:38:49 Test Item Value Reference Range Interpretation Comments POC-GLUCOSE METER 385 mg/dL 70-110 H : [facility]) (test code = [facility], 153) 68987: After School Teacher/Techni denzel ID = [id number] for TABATHA FOX, KENNEDY COMPREHENSIVE METABOLIC [id number] 04:31:27 Test Item Value Reference Range Interpretation Comments TOTAL PROTEIN 6.9 gm/dL 6.0-8.3 Specimen sligh tly (AKER) (test hemolyzed code = 770) ALBUMIN (AKER) 3.6 g/dL 3.5-5.0 Specimen sl ightly (test code = 1145) hemolyzed ALKALINE 81 U/L 40-150 PHOSPHATASE (AKER) (test code = 346) BILIRUBIN TOTAL 1.0 mg/dL 0.2-1.2 Specimen sli ghtly (BEAKER) (test hemolyzed code = 377) SODIUM (BEAKER) 139 meq/L 136-145 (test code = 381) POTASSIUM (BEAKER) 3.5 meq/L 3.5-5.1 Specimen slightly (test code = 379) hemolyzed CHLORIDE (BEAKER) 101 meq/L 98-107 (test code = 382) CO2 (BEAKER) (test 23 meq/L 22-29 code = 355) BLOOD UREA 31 mg/dL 7-21 H NITROGEN (BEAKER) (test code = 354) CREATININE 2.89 mg/dL 0.57-1.25 H Specimen slight ly (BEAKER) (test hemolyzed code = 358) GLUCOSE RANDOM 397 mg/dL 70-105 H (BEAKER) (test code = 652) CALCIUM (BEAKER) 8.8 mg/dL 8.4-10.2 (test code = 697) AST (SGOT) 28 U/L 5-34 Specimen slight ly (BEAKER) (test hemolyzed code = 353) ALT (SGPT) 39 U/L 6-55 Specimen slight ly (BEAKER) (test hemolyzed code = 347) EGFR (BEAKER) 17 Interpretatio n of eGFR (test code = 1092) mL/min/1.[address] age Description sq m Result G1 Macey l or high >=90 G2 Mildly decreased 60-89 G3a Mild ly to moderately 45-5 9 G3b Moderately to s everely 30-44 G4 Severl y decreased 15-29 G5 Kidney failure <15Reported eGF R is based on the CKD-EPI 2020 equation that d oes not use a race coefficientEsti mated GFR is not as accur ate as Creatinine Erna blayne in predicting glom erular filtration rate . Estimated GFR is not appl icable for dialysis patien ts After School Teacher ID - JOVANY LTSH/FREE T4 IF [id number] 04:25:39 Test Item Value Reference Range Interpretation Comments THYROID STIMULATING HORMONE 0.396 uIU/mL 0.350-4.940 (BEAKER) (test code = 772) After School Teacher ID - JOVANY [id number] 04:25:38 Test Item Value Reference Range Interpretation Comments PROLACTIN (BEAKER) (test code = 19.94 ng/mL 5.18-26.53 758) After School Teacher ID Saira MANZO [id number] 04:23:38 Test Item Value Reference Range Interpretation Comments D-DIMER QUANTITATIVE (BEAKER) 1.68 MG/L FEU <0.50 H (test code = 671) Intended Use: The D-Dimer Assay can be used to aid in the diagnosis of Deep Vein Thrombosis (DVT) and Pulmonary Embolism Disease (PED).In patients with low pre- test probability, various studies concerning STA Liatest D-dimer test have reported that with a cutoff value of 0.50 MG/L FEU, the Negative Predictive Value (NPV) regarding the exclusion of thrombosis is within 95-100% range.APTT 2022-09-14 04:21:18 Test Item Value Reference Range Interpretation Comments PARTIAL THROMBOPLASTIN TIME 24.0 seconds 22.5-36.0 (BEAKER) (test code = 760) PROTHROMBIN [id number] 04:20:35 Test Item Value Reference Range Interpretation Comments PROTIME (BEAKER) 13.2 seconds 11.9-14.2 (test code = 759) INR (BEAKER) (test 1.02 See_Comment [Automat ed message] code = 370) The system [employer] generated this result transmitted ref erence range: <=5.90. The reference range was not used to int erpret this result as normal/abnormal . RECOMMENDED COUMADIN/WARFARIN INR THERAPY RANGESSTANDARD DOSE: 2.0 - 3.0 Includes: PROPHYLAXIS for venous thrombosis, systemic embolization; TREATMENT for venous thrombosis and/or pulmonary embolus.HIGH RISK: Target INR is 2.5-3.5 for patients with mechanical heart valves.[id number] 04:17:39 Test Item Value Reference Range Interpretation Comments PHOSPHORUS (BEAKER) 2.8 mg/dL 2.3-4.7 Specimen slightly (test code = 604) hemolyzed After School Teacher JOSHUA MANZO LLIPID [id number] 04:17:39 Test Item Value Reference Range Interpretation Comments TRIGLYCERIDES (BEAKER) 160 mg/dL Speci men slightly (test code = 540) hemolyzed CHOLESTEROL (BEAKER) 190 mg/dL Specime n slightly (test code = 631) hemolyzed HDL CHOLESTEROL (BEAKER) 33 mg/dL (test code = 976) LDL CHOLESTEROL 125 mg/dL CALCULATED (BEAKER) (test code = 633) Triglyceride Reference Range: Low Risk <150 Borderline 150-199 High Risk 200- 499 Very High Risk >=500Cholesterol Reference Range: Low Risk <200 Borderline 200-239 High Risk >240HDL Cholesterol Reference Range: Low Risk >=60 High Risk <40LDL Cholesterol Reference Range: Optimal <100 Near Optimal 100-129 Borderline 130-159 High 160-189 Very High >=190 After School Teacher JOSHUA MANZO [id number] 04:17:38 Test Item Value Reference Range Interpretation Comments MAGNESIUM (BEAKER) 1.9 mg/dL 1.6-2.6 Specimen slightly (test code = 627) hemolyzed After School Teacher JOSHUA MANZO LCBC W/PLT COUNT & AUTO [id number] 04:13:13 Test Item Value Reference Range Interpretation Comments WHITE BLOOD CELL COUNT (BEAKER) 11.5 K/ L 3.5-10.5 H (test code = 775) RED BLOOD CELL COUNT (BEAKER) 4.60 M/ L 3.93-5.22 (test code = 761) HEMOGLOBIN (BEAKER) (test code = 12.4 GM/DL 11.2-15.7 410) HEMATOCRIT (BEAKER) (test code = 36.9 % 34.1-44.9 411) MEAN CORPUSCULAR VOLUME (BEAKER) 80 fL 79-95 (test code = 753) MEAN CORPUSCULAR HEMOGLOBIN 27.0 pg 25.6-32.2 (BEAKER) (test code = 751) MEAN CORPUSCULAR HEMOGLOBIN CONC 33.6 GM/DL 32.2-35.5 (BEAKER) (test code = 752) RED CELL DISTRIBUTION WIDTH 14.0 % 11.7-14.4 (BEAKER) (test code = 412) PLATELET COUNT (BEAKER) (test 393 K/CU MM 150-450 code = 756) MEAN PLATELET VOLUME (BEAKER) 9.8 fL 9.4-12.3 (test code = 754) NUCLEATED RED BLOOD CELLS 0 /100 WBC 0-0 (BEAKER) (test code = 413) NEUTROPHILS RELATIVE PERCENT 90 % (BEAKER) (test code = 429) LYMPHOCYTES RELATIVE PERCENT 9 % (BEAKER) (test code = 430) MONOCYTES RELATIVE PERCENT 1 % (BEAKER) (test code = 431) EOSINOPHILS RELATIVE PERCENT 0 % (BEAKER) (test code = 432) BASOPHILS RELATIVE PERCENT 0 % (BEAKER) (test code = 437) NEUTROPHILS ABSOLUTE COUNT 10.37 K/ L 1.56-6.13 H (BEAKER) (test code = 670) LYMPHOCYTES ABSOLUTE COUNT 0.99 K/ L 1.18-3.74 L (BEAKER) (test code = 414) MONOCYTES ABSOLUTE COUNT (BEAKER) 0.11 K/ L 0.24-0.36 L (test code = 415) EOSINOPHILS ABSOLUTE COUNT 0.00 K/ L 0.04-0.36 L (BEAKER) (test code = 416) BASOPHILS ABSOLUTE COUNT (BEAKER) 0.01 K/ L 0.01-0.08 (test code = 417) IMMATURE GRANULOCYTES-RELATIVE 0.50 % 0.00-1.00 PERCENT (BEAKER) (test code = 2801) LACTIC ACID, [id number] 04:00:33 Test Item Value Reference Range Interpretation Comments LACTATE BLOOD VENOUS 1.98 mmol/L 0.50-2.20 Specime n markedly (2) (BEAKER) (test hemolyzed code = 1621) [employer] Teacher ID - JOVANY LBLOOD GAS, [id number] 03:45:20 Test Item Value Reference Range Interpretation Comments PH VENOUS (BEAKER) (test code = 7.33 7.32-7.42 701) PCO2 VENOUS (BEAKER) (test code = 57 mm Hg 41-51 H 755) PO2 VENOUS (BEAKER) (test code = 42 mm Hg 25-40 H 702) O2 SATURATION VENOUS (BEAKER) 72.7 % 40.0-70.0 H (test code = 703) HCO3 VENOUS (BEAKER) (test code = 29 mmol/L 21-29 705) BASE EXCESS VENOUS (BEAKER) (test 2.0 mmol/L -2.0-3.0 code = 704) PATIENT TEMPERATURE (BEAKER) (test 37.0 code = 1818) FIO2 (BEAKER) (test code = 1819) 21.0 POCT-GLUCOSE [id number] 03:19:46 Test Item Value Reference Range Interpretation Comments POC-GLUCOSE METER 385 mg/dL 70-110 H : [facility] [place] [facility] (BEAKER) (test code = BRANDT MARQUIS PA, 1538) [address]: After School Teacher/Techni denzel ID = [id number] for KENNEDY PRUETT POCT GLUCOSE (AUTOMATED)2022-05-14 14:58:51 Test Item Value Reference Range Interpretation Comments POCT GLU (test code = 2066559150) 162 mg/dL 70-110 H Lab Interpretation (test code = Abnormal 93544-0) [facility] GLUCOSE (AUTOMATED)2022-05-14 14:58:51 Test Item Value Reference Range Interpretation Comments POCT GLU (test code = 4189422679) 162 mg/dL 70-110 H Lab Interpretation (test code = Abnormal 48648-3) [facility] [id number] 14:56:00 Test Item Value Reference Range Interpretation Comments POCT Glu (age>30days) (test code = 162 mg/dL 70-110 A 3342) Lab Interpretation (test code = Abnormal 73011-2) [facility] [id number] 14:56:00 Test Item Value Reference Range Interpretation Comments POCT Glu (age>30days) (test code = 162 mg/dL 70-110 A 3342) Lab Interpretation (test code = Abnormal 29534-7) [id number] 16:31:11 Test Item Value Reference Interpretation Comments Range TROPONIN I (test 0.010 ng/mL See_Comment [Automated code = 4856003812) message] The system which generated this result [...] biotin. Lab Interpretation Normal (test code = 59055-2) [facility] 16:19:48 Test Item Value Reference Range Interpretation Comments MAGNESIUM (test code = 6496664787) 1.8 mg/dL 1.7-2.4 Lab Interpretation (test code = Normal 92026-5) [facility] (06291)2022-02-01 16:19:28 Test Item Value Reference Range Interpretation Comments NA (test code = 138 mmol/L 135-145 9261197776) K (test code = 3.5 mmol/L 3.5-5.0 8289354003) CL (test code = 98 mmol/L 98-108 7177473755) CO2 TOTAL (test code = 30 mmol/L 23-31 6240949682) AGAP (test code = 2-16 0207419495) BUN (test code = 30 mg/dL 7-23 H 0220282412) GLUCOSE (test code = 189 mg/dL 70-110 H 9526067780) CREATININE (test code = 2.03 mg/dL 0.50-1.04 H 9197530460) TOTAL BILI (test code = 1.1 mg/dL 0.1-1.0 8911910343) CALCIUM (test code = 9.4 mg/dL 8.6-10.6 5957055931) T PROTEIN (test code = 7.2 g/dL 6.3-8.2 8696554643) ALBUMIN (test code = 4.2 g/dL 3.5-5.0 5244748061) ALK PHOS (test code = 85 U/L 34-122 2001312836) ALTv (test code = 37 U/L 5-35 H 1742-6) AST(SGOT) (test code = 29 U/L 13-40 6351603672) eGFR (test code = mL/min/1.73m2 2958495614) SONIYA (test code = SONIYA) Association of [...] tests). Lab Interpretation Abnormal (test code = 02178-0) [facility] 16:19:08 Test Item Value Reference Range Interpretation Comments LIPASE (test code = 0992322136) 200 U/L 0-220 Lab Interpretation (test code = Normal 11910-0) [facility] WITH [id number] 16:04:08 Test Item Value Reference Range Interpretation Comments WBC (test code = See_Comment [Automated 7856-2) message] The sy stem which generated this result transmitted reference range : 4.30 - 11.10 10*3/?L. The reference range was not used to interpret this result as normal/abnormal . RBC (test code = See_Comment [Automated 513-7) message] The sy stem which generated this [...] RDW-SD (test code = 41.2 fL 39.0-49.9 57104-0) RDW-CV (test code = 14.2 % 12.0-15.5 788-0) PLT (test code = See_Comment [Automated 777-3) message] The sy stem which generated this result transmitted reference range : 166 - 358 10*3/ ?L. The reference r bridget was not used to interpret this result as normal/abnormal . MPV (test code = 9.1 fL 9.5-12.9 L 80446-6) NRBC/100 WBC (test See_Comment [Automat ed code = 2966400732) message] The system which generated this result transmitted reference range : 0.0 - 10.0 /100 WBCs. The refer ence range was not u sed to interpret th is result as normal/abnormal . NRBC x10^3 (test code <0.01 See_Comment [Auto mated = 1249405166) message] The s ystem which generated this result transmitted reference range : 10*3/?L. The reference range was not used to interpret this result as normal/abnormal . GRAN MAT (NEUT) % 60.5 % (test code = 770-8) IMM GRAN % (test code 0.40 % = 0841683506) LYMPH % (test code = 31.2 % 736-9) MONO % (test code = 4.8 % 5905-5) EOS % (test code = 2.7 % 713-8) BASO % (test code = 0.4 % 706-2) GRAN MAT x10^3(ANC) 4.30 10*3/uL 1.88-7.09 (test code = 7127793930) IMM GRAN x10^3 (test 0.03 10*3/uL 0.00-0.06 code = 8478618941) LYMPH x10^3 (test code 2.22 10*3/uL 1.32-3.29 = 731-0) MONO x10^3 (test code 0.34 10*3/uL 0.33-0.92 = 742-7) EOS x10^3 (test code = 0.19 10*3/uL 0.03-0.39 711-2) BASO x10^3 (test code 0.03 10*3/uL 0.01-0.07 = 704-7) Lab Interpretation Abnormal (test code = 42949-6) [facility] [id number] 06:39:55 Test Item Value Reference Range Interpretation Comments HEMOGLOBIN A1c (test 9.6 % 4.2-5.6 H AMERIC AN DIABETES code = 61809) ASSOCIATION IDELINES FOR HGB A1C: PREDIABETES/INC REASED [...] UNLESS OTHERWIS E INDICATED, ALL TESTING PER FORMED ATCLINICAL PATH [facility], [place] [address] LABORATORY DIRE CTOR: JANEEN LINDO M.D. CLIA NUMBER [id number] [facility] [place]. [id number] HEMOGLOBIN [id number] 00:00:00 Test Item Value Reference Range Interpretation Comments HEMOGLOBIN A1c (test code = 08010) 9.6 % HEMOGLOBIN [id number] 00:00:00 Test Item Value Reference Range Interpretation Comments HEMOGLOBIN A1c (test code = 86858) 9.6 % HEMOGLOBIN [id number] 00:00:00 Test Item Value Reference Range Interpretation Comments HEMOGLOBIN A1c (test code = 13606) 9.6 % HEMOGLOBIN [id number] 00:00:00 Test Item Value Reference Range Interpretation Comments HEMOGLOBIN A1c (test code = 20907) 9.6 % HEMOGLOBIN [id number] 00:00:00 Test Item Value Reference Range Interpretation Comments HEMOGLOBIN A1c (test code = 18764) 9.6 % HEMOGLOBIN [id number] 00:00:00 Test Item Value Reference Range Interpretation Comments HEMOGLOBIN A1c (test code = 16517) 9.6 % HEMOGLOBIN [id number] 00:00:00 Test Item Value Reference Range Interpretation Comments HEMOGLOBIN A1c (test code = 92544) 9.6 % HEMOGLOBIN [id number] 00:00:00 Test Item Value Reference Range Interpretation Comments HEMOGLOBIN A1c (test code = 82899) 9.6 % HEMOGLOBIN [id number] 00:00:00 Test Item Value Reference Range Interpretation Comments HEMOGLOBIN A1c (test code = 91320) 9.6 % HEMOGLOBIN [id number] 00:00:00 Test Item Value Reference Range Interpretation Comments HEMOGLOBIN A1c (test code = 97729) 9.6 % HEMOGLOBIN [id number] 00:00:00 Test Item Value Reference Range Interpretation Comments HEMOGLOBIN A1c (test code = 15361) 9.6 % HEMOGLOBIN [id number] 00:00:00 Test Item Value Reference Range Interpretation Comments HEMOGLOBIN A1c (test code = 12738) 9.6 % HEMOGLOBIN [id number] 06:06:01 Test Item Value Reference Range Interpretation Comments HEMOGLOBIN A1c (test 9.8 % 4.2-5.6 H AMERIC AN DIABETES code = 37299) ASSOCIATION IDELINES FOR HGB A1C: PREDIABETES/INC REASED [...] ATE TESTING OR LABORATORY C ONSULTATION. LIPID [id number] 04:28:41 Test Item Value Reference Range Interpretation [...] MOREINFORMATION , SEE CLIENT ANNOUNCE MENT AT [email or web address] RISK RATIO LDL/HDL 2.90 RATIO <3.22 (test code = 2238) COMPREHENSIVE METABOLIC [id number] 04:28:41 Test Item Value Reference Range Interpretation Comments GLUCOSE (test code = 163 MG/DL 70-99 H 2216) BUN (test code = 24 MG/DL 8-23 H 2207) CREATININE (test 1.84 MG/DL 0.60-1.30 H EFFECTIVE code = 2214) 09/02/2021, [facility] HAS IMPLEMENTED THE NKF-ASN RECOMME NDED KD-EPI EGF R REFIT CALCULATI ON THAT DOES NOT I NCLUDE A COEFFICIENT FORRACE. FOR MO RE INFORMATION, SE E ANNOUNCEMENT [email or web address] eGFR (2020 CKD-EPI) 30 >60 L (test code = 93768) ML/MIN/1.73 CALC BUN/CREAT (test 13 RATIO 6-28 code = 2235) SODIUM (test code = 144 MEQ/L 020-822 6463) POTASSIUM (test code 3.6 MEQ/L 3.5-5.4 = 2228) CHLORIDE (test code 103 MEQ/L 95-107 = 2215) CARBON DIOXIDE (test 29 MEQ/L 19-31 code = 2206) CALCIUM (test code = 9.6 MG/DL 8.5-10.5 2208) PROTEIN, TOTAL (test 7.2 G/DL 6.1-8.3 code = 2229) ALBUMIN (test code = 4.2 G/DL 3.5-5.2 [...] = 30 U/L 5-40 UNLESS OTH ERWISE 2219) INDICATED, ALL TESTING PERFORM ED ATCLINICAL PATH [facility], [place]. [address] [place] [address] [facility] DIRECTOR: JANEEN LINDO M.D. IA NUMBER [id number] CAP ACCREDITATION N O. [id number] HEMOGLOBIN [id number] 00:00:00 Test Item Value Reference Range Interpretation Comments HEMOGLOBIN A1c (test code = 37645) 9.8 % HEMOGLOBIN [id number] 00:00:00 Test Item Value Reference Range Interpretation Comments HEMOGLOBIN A1c (test code = 81798) 9.8 % HEMOGLOBIN [id number] 00:00:00 Test Item Value Reference Range Interpretation Comments HEMOGLOBIN A1c (test code = 37778) 9.8 % LIPID [id number] 00:00:00 Test Item Value Reference Range Interpretation Comments CHOLESTEROL (test code = 2210) 177 MG/DL TRIGLYCERIDES (test code = 2232) 135 MG/DL HDL CHOLESTEROL (test code = 2220) 39 MG/DL CALC LDL CHOL (test code = 2237) 113 MG/DL RISK RATIO LDL/HDL (test code = 2.90 RATIO 2238) LIPID [id number] 00:00:00 Test Item Value Reference Range Interpretation Comments CHOLESTEROL (test code = 2210) 177 MG/DL TRIGLYCERIDES (test code = 2232) 135 MG/DL HDL CHOLESTEROL (test code = 2220) 39 MG/DL CALC LDL CHOL (test code = 2237) 113 MG/DL RISK RATIO LDL/HDL (test code = 2.90 RATIO 2238) COMPREHENSIVE METABOLIC [id number] 00:00:00 Test Item Value Reference Range Interpretation Comments GLUCOSE (test code = 2217) 163 MG/DL BUN (test code = 2208) 24 MG/DL CREATININE (test code = 2214) 1.84 MG/DL eGFR (2020 CKD-EPI) (test code 30 ML/MIN/1.73 = 84847) CALC BUN/CREAT (test code = 13 RATIO [...] code = 2219) 30 U/L COMPREHENSIVE METABOLIC [id number] 00:00:00 Test Item Value Reference Range Interpretation Comments GLUCOSE (test code = 2217) 163 MG/DL BUN (test code = 2208) 24 MG/DL CREATININE (test code = 2214) 1.84 MG/DL eGFR (2020 CKD-EPI) (test code 30 ML/MIN/1.73 = 75625) CALC BUN/CREAT (test code = 13 RATIO [...] (test code = 2219) 30 U/L HEMOGLOBIN [id number] 00:00:00 Test Item Value Reference Range Interpretation Comments HEMOGLOBIN A1c (test code = 19736) 9.8 % HEMOGLOBIN [id number] 00:00:00 Test Item Value Reference Range Interpretation Comments HEMOGLOBIN A1c (test code = 63051) 9.8 % HEMOGLOBIN [id number] 00:00:00 Test Item Value Reference Range Interpretation Comments HEMOGLOBIN A1c (test code = 44045) 9.8 % LIPID [id number] 00:00:00 Test Item Value Reference Range Interpretation Comments CHOLESTEROL (test code = 2210) 177 MG/DL TRIGLYCERIDES (test code = 2232) 135 MG/DL HDL CHOLESTEROL (test code = 2220) 39 MG/DL CALC LDL CHOL (test code = 2237) 113 MG/DL RISK RATIO LDL/HDL (test code = 2.90 RATIO 2238) LIPID [id number] 00:00:00 Test Item Value Reference Range Interpretation Comments CHOLESTEROL (test code = 2210) 177 MG/DL TRIGLYCERIDES (test code = 2232) 135 MG/DL HDL CHOLESTEROL (test code = 2220) 39 MG/DL CALC LDL CHOL (test code = 2237) 113 MG/DL RISK RATIO LDL/HDL (test code = 2.90 RATIO 2238) COMPREHENSIVE METABOLIC [id number] 00:00:00 Test Item Value Reference Range Interpretation Comments GLUCOSE (test code = 2217) 163 MG/DL BUN (test code = 2208) 24 MG/DL CREATININE (test code = 2214) 1.84 MG/DL eGFR (2020 CKD-EPI) (test code 30 ML/MIN/1.73 = 61084) CALC BUN/CREAT (test code = 13 RATIO [...] code = 2219) 30 U/L COMPREHENSIVE METABOLIC [id number] 00:00:00 Test Item Value Reference Range Interpretation Comments GLUCOSE (test code = 2217) 163 MG/DL BUN (test code = 2208) 24 MG/DL CREATININE (test code = 2214) 1.84 MG/DL eGFR (2020 CKD-EPI) (test code 30 ML/MIN/1.73 = 05985) CALC BUN/CREAT (test code = 13 RATIO 5) SODIUM (test code = 2231) 144 MEQ/L [...] (test code = 2219) 30 U/L HEMOGLOBIN [id number] 00:00:00 Test Item Value Reference Range Interpretation Comments HEMOGLOBIN A1c (test code = 67993) 9.8 % HEMOGLOBIN [id number] 00:00:00 Test Item Value Reference Range Interpretation Comments HEMOGLOBIN A1c (test code = 77132) 9.8 % HEMOGLOBIN [id number] 00:00:00 Test Item Value Reference Range Interpretation Comments HEMOGLOBIN A1c (test code = 56609) 9.8 % LIPID [id number] 00:00:00 Test Item Value Reference Range Interpretation Comments CHOLESTEROL (test code = 2210) 177 MG/DL TRIGLYCERIDES (test code = 2232) 135 MG/DL HDL CHOLESTEROL (test code = 2220) 39 MG/DL CALC LDL CHOL (test code = 2237) 113 MG/DL RISK RATIO LDL/HDL (test code = 2.90 RATIO 2238) LIPID [id number] 00:00:00 Test Item Value Reference Range Interpretation Comments CHOLESTEROL (test code = 2210) 177 MG/DL TRIGLYCERIDES (test code = 2232) 135 MG/DL HDL CHOLESTEROL (test code = 2220) 39 MG/DL CALC LDL CHOL (test code = 2237) 113 MG/DL RISK RATIO LDL/HDL (test code = 2.90 RATIO 2238) COMPREHENSIVE METABOLIC [id number] 00:00:00 Test Item Value Reference Range Interpretation Comments GLUCOSE (test code = 2217) 163 MG/DL BUN (test code = 2208) 24 MG/DL CREATININE (test code = 2214) 1.84 MG/DL eGFR (2020 CKD-EPI) (test code 30 ML/MIN/1.73 = 86213) CALC BUN/CREAT (test code = 13 RATIO [...] code = 2219) 30 U/L COMPREHENSIVE METABOLIC [id number] 00:00:00 Test Item Value Reference Range Interpretation Comments GLUCOSE (test code = 2217) 163 MG/DL BUN (test code = 2208) 24 MG/DL CREATININE (test code = 2214) 1.84 MG/DL eGFR (2020 CKD-EPI) (test code 30 ML/MIN/1.73 = 31143) CALC BUN/CREAT (test code = 13 RATIO [...] (test code = 2219) 30 U/L HEMOGLOBIN [id number] 00:00:00 Test Item Value Reference Range Interpretation Comments HEMOGLOBIN A1c (test code = 71231) 9.8 % HEMOGLOBIN [id number] 00:00:00 Test Item Value Reference Range Interpretation Comments HEMOGLOBIN A1c (test code = 56469) 9.8 % HEMOGLOBIN [id number] 00:00:00 Test Item Value Reference Range Interpretation Comments HEMOGLOBIN A1c (test code = 24582) 9.8 % LIPID [id number] 00:00:00 Test Item Value Reference Range Interpretation Comments CHOLESTEROL (test code = 2210) 177 MG/DL TRIGLYCERIDES (test code = 2232) 135 MG/DL HDL CHOLESTEROL (test code = 2220) 39 MG/DL CALC LDL CHOL (test code = 2237) 113 MG/DL RISK RATIO LDL/HDL (test code = 2.90 RATIO 2238) LIPID [id number] 00:00:00 Test Item Value Reference Range Interpretation Comments CHOLESTEROL (test code = 2210) 177 MG/DL TRIGLYCERIDES (test code = 2232) 135 MG/DL HDL CHOLESTEROL (test code = 2220) 39 MG/DL CALC LDL CHOL (test code = 2237) 113 MG/DL RISK RATIO LDL/HDL (test code = 2.90 RATIO 2238) COMPREHENSIVE METABOLIC [id number] 00:00:00 Test Item Value Reference Range Interpretation Comments GLUCOSE (test code = 2217) 163 MG/DL BUN (test code = 2208) 24 MG/DL CREATININE (test code = 2214) 1.84 MG/DL eGFR (2020 CKD-EPI) (test code 30 ML/MIN/1.73 = 60456) CALC BUN/CREAT (test code = 13 RATIO [...] code = 2219) 30 U/L COMPREHENSIVE METABOLIC [id number] 00:00:00 Test Item Value Reference Range Interpretation Comments GLUCOSE (test code = 2217) 163 MG/DL BUN (test code = 2208) 24 MG/DL CREATININE (test code = 2214) 1.84 MG/DL eGFR (2020 CKD-EPI) (test code 30 ML/MIN/1.73 = 60367) CALC BUN/CREAT (test code = 13 RATIO [...] (test code = 2219) 30 U/L HEMOGLOBIN [id number] 00:00:00 Test Item Value Reference Range Interpretation Comments HEMOGLOBIN A1c (test code = 72116) 9.1 % HEMOGLOBIN [id number] 00:00:00 Test Item Value Reference Range Interpretation Comments HEMOGLOBIN A1c (test code = 22081) 9.1 % HEMOGLOBIN [id number] 00:00:00 Test Item Value Reference Range Interpretation Comments HEMOGLOBIN A1c (test code = 03226) 9.1 % HEMOGLOBIN [id number] 00:00:00 Test Item Value Reference Range Interpretation Comments HEMOGLOBIN A1c (test code = 23629) 9.1 % HEMOGLOBIN [id number] 00:00:00 Test Item Value Reference Range Interpretation Comments HEMOGLOBIN A1c (test code = 80841) 9.1 % HEMOGLOBIN [id number] 00:00:00 Test Item Value Reference Range Interpretation Comments HEMOGLOBIN A1c (test code = 14565) 9.1 % HEMOGLOBIN [id number] 00:00:00 Test Item Value Reference Range Interpretation Comments HEMOGLOBIN A1c (test code = 59872) 9.1 % HEMOGLOBIN [id number] 00:00:00 Test Item Value Reference Range Interpretation Comments HEMOGLOBIN A1c (test code = 12853) 9.1 % HEMOGLOBIN [id number] 00:00:00 Test Item Value Reference Range Interpretation Comments HEMOGLOBIN A1c (test code = 37233) 9.1 % HEMOGLOBIN [id number] 00:00:00 Test Item Value Reference Range Interpretation Comments HEMOGLOBIN A1c (test code = 14752) 9.1 % HEMOGLOBIN [id number] 00:00:00 Test Item Value Reference Range Interpretation Comments HEMOGLOBIN A1c (test code = 13726) 9.1 % HEMOGLOBIN [id number] 00:00:00 Test Item Value Reference Range Interpretation Comments HEMOGLOBIN A1c (test code = 55357) 9.1 % HEMOGLOBIN [id number] 00:00:00 Test Item Value Reference Range Interpretation Comments HEMOGLOBIN A1c (test code = 05246) 9.5 % HEMOGLOBIN [id number] 00:00:00 Test Item Value Reference Range Interpretation Comments HEMOGLOBIN A1c (test code = 59826) 9.5 % HEMOGLOBIN [id number] 00:00:00 Test Item Value Reference Range Interpretation Comments HEMOGLOBIN A1c (test code = 98357) 9.5 % HEMOGLOBIN [id number] 00:00:00 Test Item Value Reference Range Interpretation Comments HEMOGLOBIN A1c (test code = 76027) 9.5 % HEMOGLOBIN [id number] 00:00:00 Test Item Value Reference Range Interpretation Comments HEMOGLOBIN A1c (test code = 47836) 9.5 % HEMOGLOBIN [id number] 00:00:00 Test Item Value Reference Range Interpretation Comments HEMOGLOBIN A1c (test code = 98514) 9.5 % HEMOGLOBIN [id number] 00:00:00 Test Item Value Reference Range Interpretation Comments HEMOGLOBIN A1c (test code = 00389) 9.5 % HEMOGLOBIN [id number] 00:00:00 Test Item Value Reference Range Interpretation Comments HEMOGLOBIN A1c (test code = 55202) 9.5 % HEMOGLOBIN [id number] 00:00:00 Test Item Value Reference Range Interpretation Comments HEMOGLOBIN A1c (test code = 05972) 9.5 % HEMOGLOBIN [id number] 00:00:00 Test Item Value Reference Range Interpretation Comments HEMOGLOBIN A1c (test code = 29836) 9.5 % HEMOGLOBIN [id number] 00:00:00 Test Item Value Reference Range Interpretation Comments HEMOGLOBIN A1c (test code = 75865) 9.5 % HEMOGLOBIN [id number] 00:00:00 Test Item Value Reference Range Interpretation Comments HEMOGLOBIN A1c (test code = 97073) 9.5 % HEMOGLOBIN [id number] 00:00:00 Test Item Value Reference Range Interpretation Comments HEMOGLOBIN A1c (test code = 59136) 8.8 % HEMOGLOBIN [id number] 00:00:00 Test Item Value Reference Range Interpretation Comments HEMOGLOBIN A1c (test code = 67923) 8.8 % HEMOGLOBIN [id number] 00:00:00 Test Item Value Reference Range Interpretation Comments HEMOGLOBIN A1c (test code = 38816) 8.8 % LIPID [id number] 00:00:00 Test Item Value Reference Range Interpretation Comments CHOLESTEROL (test code = 2210) 139 MG/DL TRIGLYCERIDES (test code = 2232) 108 MG/DL HDL CHOLESTEROL (test code = 2220) 42 MG/DL CALC LDL CHOL (test code = 2237) 75 MG/DL RISK RATIO LDL/HDL (test code = 1.80 RATIO 2238) LIPID [id number] 00:00:00 Test Item Value Reference Range Interpretation Comments CHOLESTEROL (test code = 2210) 139 MG/DL TRIGLYCERIDES (test code = 2232) 108 MG/DL HDL CHOLESTEROL (test code = 2220) 42 MG/DL CALC LDL CHOL (test code = 2237) 75 MG/DL RISK RATIO LDL/HDL (test code = 1.80 RATIO 2238) COMPREHENSIVE METABOLIC [id number] 00:00:00 Test Item Value Reference Range Interpretation Comments GLUCOSE (test code = 2217) 196 MG/DL BUN (test code = 2208) 23 MG/DL CREATININE (test code = 2214) 1.70 MG/DL eGFR AMER. (test code 37 ML/MIN/1.73 = 68789) eGFR NON- AMER. (test 32 ML/MIN/1.73 code = 29937) CALC BUN/CREAT (test code = 14 RATIO [...] A/G RATIO (test code = 1.4 RATIO 223) BILIRUBIN, TOTAL (test code = 0.8 MG/DL 2206) ALKALINE PHOSPHATASE (test 101 U/L code = 2204) AST (test code = 2218) 16 U/L ALT (test code = 2219) 18 U/L COMPREHENSIVE METABOLIC [id number] 00:00:00 Test Item Value Reference Range Interpretation Comments GLUCOSE (test code = 2217) 196 MG/DL BUN (test code = 2208) 23 MG/DL CREATININE (test code = 2214) 1.70 MG/DL eGFR AMER. (test code 37 ML/MIN/1.73 = 23589) eGFR NON- AMER. (test 32 ML/MIN/1.73 code = 58144) CALC BUN/CREAT (test code = 14 RATIO 2235) SODIUM (test code = 2231) 145 MEQ/L POTASSIUM (test code = 2228) 4.6 MEQ/L CHLORIDE (test code = 2215) 104 MEQ/L CARBON DIOXIDE (test code = 26 MEQ/L 2206) CALCIUM (test code = 2209) 9.8 MG/DL [...] (test code = 2219) 18 U/L HEMOGLOBIN [id number] 00:00:00 Test Item Value Reference Range Interpretation Comments HEMOGLOBIN A1c (test code = 40915) 8.8 % HEMOGLOBIN [id number] 00:00:00 Test Item Value Reference Range Interpretation Comments HEMOGLOBIN A1c (test code = 61220) 8.8 % HEMOGLOBIN [id number] 00:00:00 Test Item Value Reference Range Interpretation Comments HEMOGLOBIN A1c (test code = 61506) 8.8 % LIPID [id number] 00:00:00 Test Item Value Reference Range Interpretation Comments CHOLESTEROL (test code = 2210) 139 MG/DL TRIGLYCERIDES (test code = 2232) 108 MG/DL HDL CHOLESTEROL (test code = 2220) 42 MG/DL CALC LDL CHOL (test code = 2237) 75 MG/DL RISK RATIO LDL/HDL (test code = 1.80 RATIO 2238) LIPID [id number] 00:00:00 Test Item Value Reference Range Interpretation Comments CHOLESTEROL (test code = 2210) 139 MG/DL TRIGLYCERIDES (test code = 2232) 108 MG/DL HDL CHOLESTEROL (test code = 2220) 42 MG/DL CALC LDL CHOL (test code = 2237) 75 MG/DL RISK RATIO LDL/HDL (test code = 1.80 RATIO 2238) COMPREHENSIVE METABOLIC [id number] 00:00:00 Test Item Value Reference Range Interpretation Comments GLUCOSE (test code = 2217) 196 MG/DL BUN (test code = 2208) 23 MG/DL CREATININE (test code = 2214) 1.70 MG/DL eGFR AMER. (test code 37 ML/MIN/1.73 = 51798) eGFR NON- AMER. (test 32 ML/MIN/1.73 code = 13798) CALC BUN/CREAT (test code = 14 RATIO [...] code = 2219) 18 U/L COMPREHENSIVE METABOLIC [id number] 00:00:00 Test Item Value Reference Range Interpretation Comments GLUCOSE (test code = 2217) 196 MG/DL BUN (test code = 2208) 23 MG/DL CREATININE (test code = 2214) 1.70 MG/DL eGFR AMER. (test code 37 ML/MIN/1.73 = 93508) eGFR NON- AMER. (test 32 ML/MIN/1.73 code = 05644) CALC BUN/CREAT (test code = 14 RATIO [...] (test code = 2219) 18 U/L HEMOGLOBIN [id number] 00:00:00 Test Item Value Reference Range Interpretation Comments HEMOGLOBIN A1c (test code = 57291) 8.8 % HEMOGLOBIN [id number] 00:00:00 Test Item Value Reference Range Interpretation Comments HEMOGLOBIN A1c (test code = 16512) 8.8 % HEMOGLOBIN [id number] 00:00:00 Test Item Value Reference Range Interpretation Comments HEMOGLOBIN A1c (test code = 45451) 8.8 % LIPID [id number] 00:00:00 Test Item Value Reference Range Interpretation Comments CHOLESTEROL (test code = 2210) 139 MG/DL TRIGLYCERIDES (test code = 2232) 108 MG/DL HDL CHOLESTEROL (test code = 2220) 42 MG/DL CALC LDL CHOL (test code = 2237) 75 MG/DL RISK RATIO LDL/HDL (test code = 1.80 RATIO 2238) LIPID [id number] 00:00:00 Test Item Value Reference Range Interpretation Comments CHOLESTEROL (test code = 2210) 139 MG/DL TRIGLYCERIDES (test code = 2232) 108 MG/DL HDL CHOLESTEROL (test code = 2220) 42 MG/DL CALC LDL CHOL (test code = 2237) 75 MG/DL RISK RATIO LDL/HDL (test code = 1.80 RATIO 2238) COMPREHENSIVE METABOLIC [id number] 00:00:00 Test Item Value Reference Range Interpretation Comments GLUCOSE (test code = 2217) 196 MG/DL BUN (test code = 2208) 23 MG/DL CREATININE (test code = 2214) 1.70 MG/DL eGFR AMER. (test code 37 ML/MIN/1.73 = 59453) eGFR NON- AMER. (test 32 ML/MIN/1.73 code = 87366) CALC BUN/CREAT (test code = 14 RATIO [...] code = 2219) 18 U/L COMPREHENSIVE METABOLIC [id number] 00:00:00 Test Item Value Reference Range Interpretation Comments GLUCOSE (test code = 2217) 196 MG/DL BUN (test code = 2208) 23 MG/DL CREATININE (test code = 2214) 1.70 MG/DL eGFR AMER. (test code 37 ML/MIN/1.73 = 79677) eGFR NON- AMER. (test 32 ML/MIN/1.73 code = 04857) CALC BUN/CREAT (test code = 14 RATIO [...] (test code = 2219) 18 U/L HEMOGLOBIN [id number] 00:00:00 Test Item Value Reference Range Interpretation Comments HEMOGLOBIN A1c (test code = 42112) 8.8 % HEMOGLOBIN [id number] 00:00:00 Test Item Value Reference Range Interpretation Comments HEMOGLOBIN A1c (test code = 12835) 8.8 % HEMOGLOBIN [id number] 00:00:00 Test Item Value Reference Range Interpretation Comments HEMOGLOBIN A1c (test code = 65472) 8.8 % LIPID [id number] 00:00:00 Test Item Value Reference Range Interpretation Comments CHOLESTEROL (test code = 2210) 139 MG/DL TRIGLYCERIDES (test code = 2232) 108 MG/DL HDL CHOLESTEROL (test code = 2220) 42 MG/DL CALC LDL CHOL (test code = 2237) 75 MG/DL RISK RATIO LDL/HDL (test code = 1.80 RATIO 2238) LIPID [id number] 00:00:00 Test Item Value Reference Range Interpretation Comments CHOLESTEROL (test code = 2210) 139 MG/DL TRIGLYCERIDES (test code = 2232) 108 MG/DL HDL CHOLESTEROL (test code = 2220) 42 MG/DL CALC LDL CHOL (test code = 2237) 75 MG/DL RISK RATIO LDL/HDL (test code = 1.80 RATIO 2238) COMPREHENSIVE METABOLIC [id number] 00:00:00 Test Item Value Reference Range Interpretation Comments GLUCOSE (test code = 2217) 196 MG/DL BUN (test code = 2208) 23 MG/DL CREATININE (test code = 2214) 1.70 MG/DL eGFR AMER. (test code 37 ML/MIN/1.73 = 00885) eGFR NON- AMER. (test 32 ML/MIN/1.73 code = 07807) CALC BUN/CREAT (test code = 14 RATIO [...] code = 2219) 18 U/L COMPREHENSIVE METABOLIC [id number] 00:00:00 Test Item Value Reference Range Interpretation Comments GLUCOSE (test code = 2217) 196 MG/DL BUN (test code = 2208) 23 MG/DL CREATININE (test code = 2214) 1.70 MG/DL eGFR AMER. (test code 37 ML/MIN/1.73 = 56247) eGFR NON- AMER. (test 32 ML/MIN/1.73 code = 10309) CALC BUN/CREAT (test code = 14 RATIO 2235) SODIUM (test code = 2231) 145 MEQ/L POTASSIUM (test code = 2228) 4.6 MEQ/L CHLORIDE (test code = 2215) 104 MEQ/L CARBON DIOXIDE (test code = 26 MEQ/L 2205) CALCIUM (test code = 2208) 9.8 MG/DL PROTEIN, TOTAL (test code = 7.8 G/DL 2228) ALBUMIN (test code = 2200) 4.6 G/DL CALC GLOBULIN (test code = 3.2 G/DL 2239) CALC A/G RATIO (test code = 1.4 RATIO 2233) BILIRUBIN, TOTAL (test code = 0.8 MG/DL 2206) ALKALINE PHOSPHATASE (test 101 U/L code = 2203) AST (test code = 2218) 16 U/L ALT (test code = 2219) 18 U/L
[2022-10-28 21:18] LABS: Urine Blood 1+ (Negative); Urine Glucose Negative (Negative); Urine Protein 3+ (Negative)
[2022-10-28 21:33] LABS: Urine Bacteria <20 /HPF (<20); Urine Crystals Unidentified Few /HPF (None Seen); Urine RBC <5 /HPF (None Seen)
--- NOTE | 2022-10-28 21:39 | RAD REPORT ---
EXAM DESCRIPTION: CT - Head Brain Wo Cont - 10/28/2022 9:31 pm CLINICAL HISTORY: HEADACHE Headache, drowsiness COMPARISON: Head Brain Wo Cont dated 09/13/2022 TECHNIQUE: All CT scans are performed using dose optimization technique as appropriate and may inclu de automated exposure control or mA/KV adjustment according to patient size. FINDINGS: Right frontal craniotomy is noted. Moderate pneumocephalus is present at the surgical site .There is significant right frontal lobe brain edema present with diminished density within the brain parenchyma in this region. Right to left midline shift of 10 millimeters is present. No hemorrhage or hydrocephalus seen. Paranasal sinuses mastoids are clear. IMPRESSION: Postsurgical changes are present right frontal calvarium and right frontal lobe. Signif icant brain edema is present in the right frontal lobe with 10 mm right to left midline shift. No hem orrhage is seen.
--- NOTE | 2022-10-28 22:15 | RAD REPORT ---
EXAM DESCRIPTION: RAD - Chest Single View - 10/28/2022 10:06 pm CLINICAL HISTORY: COUGH Chest pain. COMPARISON: Chest Single View dated 09/13/2022; Chest Pa And Lat (2 Views) dated 01/20/2022 FINDINGS: Portable technique limits examination quality. Mild interstitial pulmonary edema seen. The heart is mildly enlarged in size. No displaced fractures. IMPRESSION: Mild CHF
--- NOTE | 2022-10-28 22:16 | ER ---
Nurse's Notes [facility] Name: Nathalia Cooley Age: 67 yrs Sex: Female : 1955 Arrival Date: 10/28/2022 Time: 20:20 Bed 18 Private MD: Diagnosis: Compression of brain-RIGHT FRONTAL POSTSURGICAL CHANGES WITH VASOGENIC EDEMA, 1 CM SHIFT;Headache;Altered mental status, unspecified;Unspecified kidney failure;Hypokalemia Presentation: 10/28 20:22 Chief complaint: EMS states: Pt family member called for AMS. On arrival PT is A\T\O X3 kd3 but is slow to respond with a strong urine odor. Pt is supposed to see her neurologist tomorrow morning in the medical center. 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 Coronavirus screen: Vaccine status: Patient reports receiving the 2nd dose of the covid vaccine. Ebola Screen: No symptoms or risks identified at this time. Initial Sepsis Screen: Does the patient meet any 2 criteria? No. Patient's initial sepsis screen is negative. Does the patient have a suspected source of infection? No. Patient's initial sepsis screen is negative. Risk Assessment: Do you want to hurt yourself or someone else? Patient reports no desire to harm self or others. Onset of symptoms was October 28, 2022. 20:22 Method Of Arrival: EMS: [facility] kd3 20:22 Acuity: PANCHITO 3 kd3 Triage Assessment: 20:26 General: Appears in no apparent distress. Behavior is calm, cooperative. Pain: Denies kd3 pain. Historical: - PMHx: 20:26 Congestive heart failure; diabetes mellitus; Hypertensive disorder; kd3 - Immunization history:: Adult Immunizations up to date. - Social history:: Smoking status: unknown. - Family history:: not pertinent. Screenin:26 [facility] ED Fall Risk Assessment (Adult) History of falling in the last 3 months, kd3 including since admission No falls in past 3 months (0 pts) Confusion or Disorientation No (0 pts) Intoxicated or Sedated No (0 pts) Impaired Gait Yes (1 pt) Mobility Assist Device Used No (0 pt) Altered Elimination No (0 pt) Score/Fall Risk Level 0 - 2 = Low Risk. Abuse screen: Denies threats or abuse. Denies injuries from another. Nutritional screening: No deficits noted. Tuberculosis screening: No symptoms or risk factors identified. Assessment: 23:26 General: Appears in no apparent distress. Behavior is calm, cooperative. Neuro: Level kd3 of Consciousness is awake, alert, obeys commands, slow to respond to questions . Oriented to person, place, time, situation. Cardiovascular: Patient's skin is warm and dry. Respiratory: Airway is patent Trachea midline Respiratory effort is even, unlabored, Respiratory pattern is regular, symmetrical. Vital Signs: 20:22 BP 117 / 97; Pulse 61; Resp 19; Temp 98.2(TE); Pulse Ox 97% ; Weight 103.87 kg; Height kd3 5 ft. 6 in. (167.64 cm); 23:27 BP 160 / 91; Pulse 59; Resp 19; Pulse Ox 96% on R/A; kd3 20:22 Body Mass Index 36.96 (103.87 kg, 167.64 cm) kd3 [place] Coma Score: 22:08 Eye Response: spontaneous(4). Verbal Response: oriented(5). Motor Response: obeys katherine commands(6). Total: 15. NIH Stroke Scale Scores: 22:02 NIHSS Score: 0 [facility] ED Course: 20:20 Patient arrived in ED. rv1 20:26 Triage completed. kd3 20:26 Arm band placed on right wrist. kd3 21:11 Cyrus Roy MD is Attending Physician. katherine 21:32 CT Head Brain wo Cont In Process Unspecified. EDMS 21:40 Angelica Dey, RN is Primary Nurse. kd3 21:55 COVID-19/FLU A+B Sent. kd3 22:08 XRAY Chest (1 view) In Process Unspecified. EDMS 22:13 initiated a transfer with Kayla Toscano from [facility]. mw2 22:24 COVID-19/FLU A+B Sent. kd3 22:24 Troponin HS Sent. kd3 22:24 PT-INR Sent. kd3 22:24 NT PRO-BNP Sent. kd3 22:24 Magnesium Sent. kd3 22:24 LFT's Sent. kd3 22:24 CBC with Diff Sent. kd3 22:24 Basic Metabolic Panel Sent. kd3 22:49 Accessed peripheral vein via ultrasound, utilizing dynamic ultrasound technique bb Powerglide midline 20g 10cm to right upper arm using hospital protocol with good blood return and flushes easily pt tolerated well. 23:00 Lab(s) recollected, by me, sent to lab. bb 23:20 administrative approval given by Kayla Toscano/ patient has been accepted to [address] [place] [address] bed 1/ Dr. Montanez accepted the patient in transfer/report to be called to [phone]. 23:26 Patient has correct armband on for positive identification. Placed in gown. Bed in low kd3 position. 02 00:25 No provider procedures requiring assistance completed. Patient admitted, IV remains in kd3 place. Administered Medications: 10/28 23:12 Drug: NS 0.9% 1000 ml Route: IV; Rate: 75 ml/hr; Site: right upper arm; kd3 23:28 Follow up: IV Status: Infusion continued kd3 23:12 Drug: Keppra (levETIRAcetam) 1000 mg Route: IV; Rate: per protocol; Site: right upper kd3 arm; 23:28 Follow up: IV Status: Completed infusion; IV Intake: 100ml kd3 23:12 Drug: Decadron - Dexamethasone 10 mg Route: IVP; Site: right upper arm; kd3 23:28 Follow up: Response: No adverse reaction kd3 10/29 00:23 Drug: Potassium Chloride 20 mEq Route: IV; Rate: per protocol; Site: right upper arm; kd3 00:23 Follow up: IV Status: Infusion continued kd3 00:23 Drug: Potassium Effervescent Tablet 25 mEq Route: PO; kd3 00:23 Follow up: Response: No adverse reaction kd3 Medication: 10/28 23:26 VIS not applicable for this client. kd3 Intake: 23:28 IV: 100ml; Total: 100ml. kd3 Outcome: 22:16 ER care complete, transfer ordered by MD. murphy 10/29 00:25 Transferred by ground EMS kd3 Condition: stable Discharge instructions given to patient, family, Instructed on the need for transfer. 00:25 Patient left the ED. kd3 NIH Stroke Scale - NIH Stroke Score Date: 10/28/2022 Time: 22:02 Total Score = 0 1a. Level of Consciousness (LOC) - 0(Alert) 1b. Level of Consciousness (LOC) (Month \T\ Age) - 0(Both) 1c. LOC Commands (Open \T\ Closes Eyes/Import/Export Agent) - 0(Both) 2. Best Gaze (Lateral Gaze Paresis) - 0(Normal) 3. Visual Field Loss - 0(No visual loss) 4. Facial Palsy - 0(Normal) 5a. Left Arm: Motor (10-second hold) - 0(No drift) 5b. Right Arm: Motor (10-second hold) - 0(No drift) 6a. Left Leg: Motor (5-second hold - always test supine) - 0(No drift) 6b. Right Leg: Motor (5-second hold - always test supine) - 0(No drift) 7. Limb Ataxia (finger/nose \T\ heel/barrera - test with eyes open) - 0(Absent) 8. Sensory Loss (pinprick arms/legs/face) - 0(Normal) 9. Best Language: Aphasia (description/naming/reading) - 0(No aphasia) 10. Dysarthria (speech clarity - read or repeat words) - 0(Normal) 11. Extinction and Inattention (visual/tactile/auditory/spatial/personal) - 0(No abnormality) Initials: katherine Signatures: Dispatcher [employer] Cyrus Klein MD MD cha Ballard, Brenda, RN RN bb Sin Castro 2 Angelica Dey RN RN kd3 Phuong Morris 1
--- NOTE | 2022-10-28 22:17 | EDPHYS ---
Physician Documentation [facility] Name: Nathalia Cooley Age: 67 yrs Sex: Female : 1955 Arrival Date: 10/28/2022 Time: 20:20 Bed 18 Private MD: ED Physician Cyrus Roy HPI: 10/28 22:02 This 67 yrs old Black Female presents to ER via EMS with complaints of plaza, nausea and katherine slow to respond. 22:02 The patient complains of pain to the top of head and forehead. The patient describes katherine the headache as constant. Onset: The symptoms/episode began/occurred 3 day(s) ago. The patient presents with dizziness, generalized weakness. Onset: The symptoms/episode began/occurred 3 day(s) ago. Modifying factors: The symptoms are alleviated by nothing, the symptoms are aggravated by movement of head, standing up. Associated signs and symptoms: Pertinent positives: nausea, vomiting. Severity of symptoms: At its worst the pain was moderate, in the emergency department the pain is unchanged. Historical: - PMHx: 20:26 Congestive heart failure; diabetes mellitus; Hypertensive disorder; kd3 - Immunization history:: Adult Immunizations up to date. - Social history:: Smoking status: unknown. - Family history:: not pertinent. ROS: 22:02 Constitutional: Negative for fever, chills, and weight loss, Eyes: Negative for injury, katherine pain, redness, and discharge, ENT: Negative for injury, pain, and discharge, Neck: Negative for injury, pain, and swelling, Cardiovascular: Negative for chest pain, palpitations, and edema, Respiratory: Negative for shortness of breath, cough, wheezing, and pleuritic chest pain, Abdomen/GI: Negative for abdominal pain, nausea, vomiting, diarrhea, and constipation, Back: Negative for injury and pain, : Negative for injury, bleeding, discharge, and swelling, MS/Extremity: Negative for injury and deformity, Skin: Negative for injury, rash, and discoloration, Psych: Negative for depression, anxiety, suicide ideation, homicidal ideation, and hallucinations, Allergy/Immunology: Negative for hives, rash, and allergies, Endocrine: Negative for neck swelling, polydipsia, polyuria, polyphagia, and marked weight changes, Hematologic/Lymphatic: Negative for swollen nodes, abnormal bleeding, and unusual bruising. 22:02 Neuro: Positive for dizziness, gait disturbance, headache, weakness. Exam: 22:02 Constitutional: This is a well developed, well nourished patient who is awake, alert, katherine and in no acute distress. Head/Face: Normocephalic, atraumatic. Eyes: Pupils equal round and reactive to light, extra-ocular motions intact. Lids and lashes normal. Conjunctiva and sclera are non-icteric and not injected. Cornea within normal limits. Periorbital areas with no swelling, redness, or edema. ENT: Nares patent. No nasal discharge, no septal abnormalities noted. Tympanic membranes are normal and external auditory canals are clear. Oropharynx with no redness, swelling, or masses, exudates, or evidence of obstruction, uvula midline. Mucous membranes moist. Neck: Trachea midline, no thyromegaly or masses palpated, and no cervical lymphadenopathy. Supple, full range of motion without nuchal rigidity, or vertebral point tenderness. No Meningismus. Chest/axilla: Normal chest wall appearance and motion. Nontender with no deformity. No lesions are appreciated. Cardiovascular: Regular rate and rhythm with a normal S1 and S2. No gallops, murmurs, or rubs. Normal PMI, no JVD. No pulse deficits. Respiratory: Lungs have equal breath sounds bilaterally, clear to auscultation and percussion. No rales, rhonchi or wheezes noted. No increased work of breathing, no retractions or nasal flaring. Abdomen/GI: Soft, non-tender, with normal bowel sounds. No distension or tympany. No guarding or rebound. No evidence of tenderness throughout. Back: No spinal tenderness. No costovertebral tenderness. Full range of motion. Skin: Warm, dry with normal turgor. Normal color with no rashes, no lesions, and no evidence of cellulitis. MS/ Extremity: Pulses equal, no cyanosis. Neurovascular intact. Full, normal range of motion. Psych: Awake, alert, with orientation to person, place and time. Behavior, mood, and affect are within normal limits. 22:02 Neuro: Orientation: is normal, appropriate for stated age, no acute changes, Mentation: slow to respond, Memory: immediate memory is intact, remote memory is intact. recent memory is intact, Cerebellar function: no acute changes, Motor: moves all fours, strength is normal, Gait: not tested. seizure activity, is not displayed by the patient. 22:17 ECG was reviewed by the Attending Physician. [facility] Vital Signs: 20:22 BP 117 / 97; Pulse 61; Resp 19; Temp 98.2(TE); Pulse Ox 97% ; Weight 103.87 kg; Height kd3 5 ft. 6 in. (167.64 cm); 23:27 BP 160 / 91; Pulse 59; Resp 19; Pulse Ox 96% on R/A; kd3 20:22 Body Mass Index 36.96 (103.87 kg, 167.64 cm) kd3 NIH Stroke Scale Scores: 22:02 NIHSS Score: 0 katherine [place] Coma Score: 22:08 Eye Response: spontaneous(4). Verbal Response: oriented(5). Motor Response: obeys [facility] commands(6). Total: 15. MDM: 21:11 Patient medically screened. katherine 22:08 Differential diagnosis: cerebral abscess, cluster headache, cerebral vascular accident, katherine hypertensive headache, hyponatremia, subarachnoid bleed, subdural hematoma, temporal arteritis, tension headache, traumatic injuries, uremia. Differential diagnosis: CVA, generalized weakness, idiopathic dizziness, vertigo. Data reviewed: vital signs, nurses notes, EMS record, lab test result(s), EKG, radiologic studies, CT scan, plain films. Consideration of Admission/Observation Patient was admitted/placed on observation. Escalation of care including admission/observation considered. Management of patient was discussed with the following: Director Emergency: neurologist. I considered the following discharge prescriptions or medication management in the emergency department Medications were administered in the Emergency Department. See MAR. Independent interpretation of the following test(s) in the Emergency Department CT Scan: My interpretation is shift with significant vasogenic edemia. Test considered but Not performed: MRI: brain mri not done. 10/28 21:10 Order name: Basic Metabolic Panel; Complete Time: 00:11 [facility] 10/28 21:10 Order name: CBC with Diff; Complete Time: 00:11 [facility] 10/28 21:10 Order name: LFT's; Complete Time: 00:11 [facility] 10/28 21:10 Order name: Magnesium; Complete Time: 00:11 [facility] 10/28 21:10 Order name: NT PRO-BNP; Complete Time: 00:11 [facility] 10/28 21:10 Order name: PT-INR; Complete Time: 00:11 [facility] 10/28 21:10 Order name: Troponin HS; Complete Time: 00:11 [facility] 10/28 21:10 Order name: XRAY Chest (1 view); Complete Time: 22:33 [facility] 10/28 21:10 Order name: Lipase; Complete Time: 00:11 [facility] 10/28 21:10 Order name: CT Head Brain wo Cont; Complete Time: 21:44 [facility] 10/28 21:10 Order name: COVID-19/FLU A+B; Complete Time: 23:27 [facility] 10/28 21:10 Order name: Urine Microscopic Only; Complete Time: 21:44 [facility] 10/28 21:18 Order name: Urine Dipstick-Ancillary; Complete Time: 21:44 [facility] 10/28 21:10 Order name: EKG; Complete Time: 21:11 [facility] 10/28 21:10 Order name: Cardiac monitoring; Complete Time: 21:55 [facility] 10/28 21:10 Order name: EKG - Nurse/Tech; Complete Time: 21:55 [facility] 10/28 21:10 Order name: IV Saline Lock; Complete Time: 23:03 [facility] 10/28 21:10 Order name: Labs collected and sent; Complete Time: 23:03 [facility] 10/28 21:10 Order name: O2 Per Protocol; Complete Time: 21:43 [facility] 10/28 21:10 Order name: O2 Sat Monitoring; Complete Time: 21:43 [facility] 10/28 21:10 Order name: Urine Dipstick-Ancillary (obtain specimen); Complete Time: 21:18 [facility] 10/28 22:52 Order name: Misc. Order: recollect all labs; Complete Time: 23:03 bb EC:17 Rate is 63 beats/min. Rhythm is regular. QRS Dawson is Normal. MN interval is normal. QRS katherine interval is normal. QT interval is normal. No Q waves. T waves are Normal. No ST changes noted. Clinical impression: NSR w/ Non-specific ST/T Changes and No evidence of ischemia. Interpreted by me. Reviewed by me. Administered Medications: 23:12 Drug: NS 0.9% 1000 ml Route: IV; Rate: 75 ml/hr; Site: right upper arm; kd3 23:28 Follow up: IV Status: Infusion continued kd3 23:12 Drug: Keppra (levETIRAcetam) 1000 mg Route: IV; Rate: per protocol; Site: right upper kd3 arm; 23:28 Follow up: IV Status: Completed infusion; IV Intake: 100ml kd3 23:12 Drug: Decadron - Dexamethasone 10 mg Route: IVP; Site: right upper arm; kd3 23:28 Follow up: Response: No adverse reaction kd3 10/29 00:23 Drug: Potassium Chloride 20 mEq Route: IV; Rate: per protocol; Site: right upper arm; kd3 00:23 Follow up: IV Status: Infusion continued kd3 00:23 Drug: Potassium Effervescent Tablet 25 mEq Route: PO; kd3 00:23 Follow up: Response: No adverse reaction kd3 Disposition Summary: 10/28/22 22:16 Transfer Ordered Transfer Location: [facility] katherine Reason: Higher level of care katherine Condition: Fair katherine Problem: new katherine Symptoms: have improved katherine Accepting Physician: to [facility], NICU(10/29/22 00:25) kd3 Diagnosis - Compression of brain - RIGHT FRONTAL POSTSURGICAL CHANGES WITH VASOGENIC EDEMA, 1 katherine CM SHIFT - Headache katherine - Altered mental status, unspecified katherine - Unspecified kidney failure katherine - Hypokalemia katherine Forms: - Medication Reconciliation Form katherine - SBAR form katherine NIH Stroke Scale - NIH Stroke Score Date: 10/28/2022 Time: 22:02 Total Score = 0 1a. Level of Consciousness (LOC) - 0(Alert) 1b. Level of Consciousness (LOC) (Month \T\ Age) - 0(Both) 1c. LOC Commands (Open \T\ Closes Eyes/Gear Tooth Grinding Machine Operator) - 0(Both) 2. Best Gaze (Lateral Gaze Paresis) - 0(Normal) 3. Visual Field Loss - 0(No visual loss) 4. Facial Palsy - 0(Normal) 5a. Left Arm: Motor (10-second hold) - 0(No drift) 5b. Right Arm: Motor (10-second hold) - 0(No drift) 6a. Left Leg: Motor (5-second hold - always test supine) - 0(No drift) 6b. Right Leg: Motor (5-second hold - always test supine) - 0(No drift) 7. Limb Ataxia (finger/nose \T\ heel/barrera - test with eyes open) - 0(Absent) 8. Sensory Loss (pinprick arms/legs/face) - 0(Normal) 9. Best Language: Aphasia (description/naming/reading) - 0(No aphasia) 10. Dysarthria (speech clarity - read or repeat words) - 0(Normal) 11. Extinction and Inattention (visual/tactile/auditory/spatial/personal) - 0(No abnormality) Initials: [facility] Signatures: Dispatcher [employer] Cyrus Klein MD MD cha Ballard, Brenda RN Angelica Roberts RN RN kd3 Corrections: (The following items were deleted from the chart) 00:14 07 22:16 to [facility], [facility] 10/29 00:25 00:14 to [facility], [facility] kd3
[2022-10-28 22:54] LABS: SARS-COV-2 RT PCR NEGATIVE (NEGATIVE)
[2022-10-28] MEDS ORDERED: dexAMETHasone 10 MG/ML VIAL ONE (23:08)
[2022-10-28] MEDS ORDERED: LEVETIRACETAM 500 MG/5 ML VIAL IV ONE (23:08)
[2022-10-28] MEDS ORDERED: NA CHLORIDE 0.9% 250 ML ONE (23:08)
[2022-10-28] MEDS ORDERED: NA CHLORIDE 0.9% 1,000 ML ONE (23:08)
[2022-10-28 23:49] LABS: Absolute Lymphocytes (CBC) 1.6 K/uL (0.7-4.9); Lymphocytes % 14.8 % (15.3-44.8); MCV 80.4 fL (80-100); MPV 6.8 fL (7.6-11.3); RBC Red Blood Cell Count 3.98 M/uL (3.86-4.86)
[2022-10-28 23:50] LABS: Protime INR 1.1
[2022-10-29 00:07] LABS: Albumin 2.7 g/dL (3.4-5.0); Bilirubin Direct 0.2 mg/dL (0-0.2); Bilirubin Total 0.6 mg/dL (0.2-1.0); Magnesium 2.1 mg/dL (1.6-2.4); Protein, Total 6.6 g/dL (6.4-8.2); Troponin High Sensitivity 18.7 pg/mL (<58.9)
[2022-10-29 00:08] LABS: Potassium 2.7 mmol/L (3.5-5.1)
[2022-10-29] MEDS ORDERED: POTASSIUM 25 MEQ EFFERV TAB ONE (00:22)
[2022-10-29] MEDS ORDERED: KCL 20 MEQ/100 mL IVPB 100 ML IV ONE (00:22)
[2022-10-29 00:53] VITALS: TEMP 98.2
[2022-10-29 00:54] VITALS: BP 160/91; O2SAT 96
--- NOTE | 2022-10-30 07:58 | EKG ---
Test Date: 2022-10-28 Test Time: 21:52:53 Mortgage Loan Officer Originator: MARTHA MEASUREMENT RESULTS: Intervals: Rate: 63 TN: 140 QRSD: 84 QT: 418 QTc: 427 Morton: P: 57 TN: 140 QRS: 15 T: 29 INTERPRETIVE STATEMENTS: Normal sinus rhythm Nonspecific T wave abnormality Abnormal ECG No previous ECG available for comparison Electronically Signed On 10-30-22 07:55:06 [employer] by Sukhi Ford
== END 2022-10-29 00:25 | disposition short-term general hospital (02) ==
LOC: ER 20:15
DX: G93.5 Compression of brain (principal); R41.82 Altered mental status, unspecified; E87.6 Hypokalemia; E11.22 Type 2 diabetes mellitus with diabetic chronic kidney disease; N18.6 End stage renal disease; I50.9 Heart failure, unspecified; I10 Essential (primary) hypertension; Z20.822 Contact with and (suspected) exposure to COVID-19
CPT/HCPCS: 96365; 93005; 85025; 80048; 36415; 83735; 85610; 80076; 84484; 83690; 83880; 0240U; 70450; 71045; 96375; 99285; J3480; J1100; J1953; J7050; J7030; 81003; 81015

== ENCOUNTER 2023-03-27 22:25 | Emergency (ER) | payer OTHER ==
--- OUTSIDE RECORDS SUMMARY | 2023-03-27 22:56 | XMS REPORT | Continuity of Care Document ---
:1955 Author Organization [facility] t Address [address] [place] [address] [address] [place] [address] Care Team Providers Name Role Phone Sudhakardandregala Elo Primary Care Physician PHYSICIAN, NON ASSOCIATED Attending Clinician Unavailable Bakari Lynch Attending Clinician Bakari Lynch MD Attending Clinician Jignesh Jacobo Attending Clinician KAYLEE RUBIO Attending Clinician Unavailable YANA HAMILTON Attending Clinician Unavailable Carolyn Parish MD Attending Clinician Rudy Gross MD Attending Clinician Srikanth Green MD Attending Clinician Yana Hamilton MD Attending Clinician CHANGELA, CHECO M. Attending Clinician Unavailable SHIRA LAMB Attending Clinician Unavailable James TRUONG, Gato Hicks Attending Clinician Ton Khan Attending Clinician Waylon TRUONG, Smith Cooper Attending Clinician EDE SKELTON Attending Clinician Unavailable Sukhwinder TRUONG, Benito Reeves Attending Clinician [phone] Jamal TRUONG, Alexey Garcia Attending Clinician Mary TRUONG, Hector Attending Clinician Alysa TRUONG, Mari Quiroga Attending Clinician [phone] Aamir TRUONG, Sami Attending Clinician William TRUONG, Ede Ventura Attending Clinician [phone] Jeff Stacy Attending Clinician Tigist TRUONG, Christine Funez Attending Clinician [phone] MONALISA BOUDREAUX Attending Clinician Unavailable Monalisa Boudreaux MD Attending Clinician Doctor Unassigned, [place] Attending Clinician Unavailable Radiology Attending Clinician Unavailable RADIOLOGY Attending Clinician Unavailable ILIANA CHAVEZ Attending Clinician Unavailable Iliana Chavez DO Attending Clinician UNKNOWN, ATTENDING Attending Clinician Unavailable Unknown, Attending Attending Clinician Unavailable Provider, [facility] Attending Clinician Unavailable Nj Goldsmith MD Attending Clinician [place] GOLDSMITH Attending Clinician Unavailable PHYSICIAN, NON ASSOCIATED Admitting Clinician Unavailable Jef Tena Admitting Clinician SRIKANTH GREEN Admitting Clinician Unavailable SHIRA LAMB Admitting Clinician Unavailable BENITO PRETTY I. Admitting Clinician Unavailable MONALISA BOUDREAUX Admitting Clinician Unavailable Monalisa Boudreaux MD Admitting Clinician ELO WILEY Admitting Clinician Unavailable Payers Payer Name Policy Type Policy Number Effective Date Expiration Date S giovana [employer] MEDICARE [id number] 2022 ADVANTAGE PPO 00:00:00 [employer] MEDICARE [id number] 2022 ADV 00:00:00 [employer] CHOICE [id number] 2022 00:00:00 [employer] [id number] 2021 MEDICARE ADVANTAGE 00:00:00 Problems Condition Condition Condition Status Onset Resolution Last Treating Co mments Source Name Details Category Date Date Treatment Clinician Date History of History Diagnosis Active 2023-03-16 Memoria craniotomy of 03-13 07:39:51 l (situation craniotomy 00:00: He rmann ) (situation 00 ) Active 03/13/2023 Diagnosis 03/16/2023 [facility] Difficulty Difficult Diagnosis Active 2023-03-16 Memoria sleeping y sleeping 03-13 07:39:51 l (finding) (finding) 00:00: Herm ruddy Active 00 03/13/2023 Diagnosis 03/16/2023 [facility] Pain Pain Diagnosis Active 2023-03-16 Mem oria (finding) (finding) 03-13 07:39:51 l Active 00:00: Alex 03/13/2023 00 Diagnosis 03/16/2023 [facility] 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 [place] NEUROPSYCH NEUROPSYC Diagnosis Active 2023-03-25 [facility] MAXIMO HOLOGY 4-20 12:28:00 l Active 08:00: Alex 01/08/2023 00 [facility] D/C F/U D/C F/U Diagnosis Active 2023-03-13 [facility] Active 12-03 09:41:00 l 12/03/2022 00:00: Dionicio MALIN [facility] 00 Stage 4 Stage [address] [facility] chronic chronic nce 3-03 [facility] kidney kidney 00:00: Medical disease disease 00 Center Polymicrob Polymicrob Disease Active Overview : [facility] ial 3-03 [facility] bacterial bacterial 00:00: g of this M edical brain brain 00 note Center abscess abscess might be different from the original. 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 3-03 [facility] 00:00: Medical 00 [place] Allergic Allergic Disease Active [facility] conjunctiv conjunctiv 3-03 Nuria kes itis itis 00:00: Medical 00 [place] ENCEPHALOP ENCEPHALO Diagnosis Active 2022-12-09 [facility] ATHY ERIKA 11-13 22:09:00 l Active 00:00: Alex 11/13/2022 00 [facility] SEIZURE SEIZURE Diagnosis Active 2022-11-21 [facility] Active 11-13 11:02:00 l 11/13/2022 00:00: Dionicio MALIN [facility] 00 Post-op Post-op Disease Active [facility] pain pain 2-09 [facility] 00:00: Medical 00 [place] Brain Brain Disease Active [facility] abscess abscess 2-09 [facility] 00:00: Medical 00 [place] Meningioma Meningioma Disease Recurre [facility] nce 2-08 [facility] 00:00: Medical 00 [place] Pneumoceph Pneumoceph Disease Active [facility] alus 2-08 [facility] 00:00: Medical 00 [place] BI BI Active Diagnosis Active 2022-11-06 Memoria 10/29/2022 208 15:36:00 l MH [facility] 00:00: Alex 00 DECONDITIO Diagnosis Active 2022-11-04 Memoria ARIADNA DECONDITIO 10-29 11:26:00 l ARIADNA Active 00:00: Dionicio n 10/29/2022 00 [place] CEREBRAL CEREBRAL Diagnosis [facility] MENINGIOMA 10-29 22:02:00 l , , 00:00: Alex ENCEPHALOP ENCEPHALOP 00 ATHY ATHY Active 10/29/2022 [facility] Diabetes Diabetes Disease Recurre 2021-[address] mellitus mellitus nce 2-28 [facility] 00:00: [facility] [place] Seizure Seizure Disease Active 2021-[address] 2-25 [facility] 00:00: [facility] [place] Brain mass Brain mass Disease Recurre 2021-[address] nce 2-25 [facility] 00:00: [facility] [place] Dehydratio Dehydratio Disease Active 2021-[address] n n 2-25 [facility] 00:00: Medical [place] Cerebral Cerebral Disease Active 2021-09 [facility] edema edema 2-25 [facility] 00:00: [facility] Center HTN HTN Disease Recurre 2021-[address] (hypertens (hypertens nce 2-25 Nuria kes ion) ion) 00:00: [facility] [place] Hypertensi Hypertensi Disease Active 2021-[address] ve crisis ve crisis 2-25 [facility] 00:00: [facility] [place] ROCKY (acute ROCKY (acute Disease Active 2021-[address] kidney kidney 2-25 [facility] injury) injury) 00:00: [facility] [place] Breakthrou Breakthrou Disease Active 2021-[address] gh seizure gh seizure 2-25 Nuria kes 00:00: [facility] [place] Chest pain Chest pain Disease Active U nivers 5-05 ity of 00:00: [address] Branch Obesity Obesity Disease Active Univers (BMI (BMI 5-05 ity of 30-39.9) 30-39.9) 00:00: [address] Hypertensi Hypertensi Disease Active U nivers ve urgency ve urgency 5-05 it y of 00:00: [place] 00 [facility] Morbidly Morbidly Disease Active Unive rs obese obese 03-07 ity of 00:00: [place] 00 [facility] Essential Essential Disease Active Uni vers hypertensi hypertensi 03-07 it y of on, benign [place] Type 2 Type 2 Disease Active Univers diabetes diabetes 03-07 ity of mellitus mellitus 00:00: [place] without without 00 Medical complicati complicati Br anch on on Hyperchole Hyperchole Disease Active U nivers steremia steremia 03-07 ity of 00:00: [place] 00 [facility] Pain of Pain of Problem Active 2023-03-16 Me moria left knee left knee 07:39:51 l joint joint [place] Active Problem 03/16/2023 [facility] BENIGN BENIGN Diagnosis Active 2022-11-18 M emoria NEOPLASM NEOPLASM 22:02:00 l OF OF Alex CEREBRAL CEREBRAL MENINGES MENINGES Active [facility] ENCEPHALOP ENCEPHALO Diagnosis Active 2022-12-09 Memoria ERIKA AMIN, 22:09:00 l UNSPECIFIE UNSPECIFIE He rmruddy D D Active [facility] Disease of Disease Diagnosis 2022-12-07 Memoria brain of brain 22:49:29 l (disorder) (disorder) He rmruddy Diagnosis 12/07/2022 [facility] Type II Type II Diagnosis 2023-03-16 2023-03-16 Memoria diabetes diabetes 03-13 07:39:51 07:39:51 l mellitus mellitus 16:08: Dionicio n without without 00 complicati complicati on on (disorder) (disorder) 03/13/2023 Diagnosis 03/16/2023 [facility] Neurogenic Neurogeni Diagnosis 2023-03-16 2023-03-16 Memoria dysfunctio c 03-13 07:39:51 07:39:51 l n of the dysfunctio 16:06: Herm ruddy urinary n of the 00 bladder urinary (finding) bladder (finding) 03/13/2023 Diagnosis 03/16/2023 [facility] Sleep Sleep Diagnosis 2023-03-16 2023-03-16 Memoria disorder disorder 03-13 07:39:51 07:39:51 l (disorder) (disorder) 15:52: He rmann 03/13/2023 00 Diagnosis 03/16/2023 [facility] Past Past Diagnosis 2022-2023-03-16 2023-03-16 Memoria history of history of 03-13 07:39:51 07:39:51 l procedure procedure 15:07: Herm ruddy (context-d (context-d 00 ependent ependent category) category) 03/13/2023 Diagnosis 03/16/[address] [facility] [place] DKA DKA Disease Resolve 2021-092022-09-17 2022-09-[address] (diabetic (diabetic d 2-25 00:00:00 10:34:48 [facility] ketoacidos ketoacidos 00:00: Me dical is) is) 00 Center Allergies, Adverse Reactions, Alerts Allergy Allergy Status Severity Reaction(s) Onset Inactive Treating Comm ents Source Name Type Date Date Clinician POISON DRUG Active Hives 2018-0 Univers ROSALINDA INGREDI 8-15 ity of EXTRACT 00:00: [place] 00 [facility] Poison Propensi Active Hives 2019-0 Univers Roslainda ty to 8-15 ity of Extract adverse 00:00: [place] reaction 00 Medical s Branch LACTOSE DRUG Active Diarrhea 2018-0 Univers INGREDI 5-05 ity of 00:00: [place] 00 [facility] Lactose Propensi Active Diarrhea 2018-0 Lactose Univ ers ty to 5-05 intoleran ity of adverse 00:00: t [place] reaction 00 Medical s Branch No Known No Known Active Memori a Medicati Medicati l on on [facility] s NO KNOWN Allergy Active [facility] Social History Social Habit Start Date Stop Date Quantity Comments Source History SDOH [facility]Med [facility] Alcohol intake 2022-11-21 2022-11-21 Ex-drinker [facility] 00:00:00 00:00:00 (finding) Medical Center Exposure to 2022-11-03 2022-11-13 Unable to assess [facility] SARS-CoV-2 (event) 00:00:00 20:02:00 Medica l Center Tobacco use and 2022-09-15 2022-09-[address] [facility] exposure 00:00:00 00:00:00 non-user Medical Center History [facility] 2022-09-15 2022-09-15 [address] [facility] [address] [facility] Transport Med 00:00:00 00:00:[address] [facility] 2022-09-15 2022-09-15 [address] [facility] [address] [facility] Housing Unable to 00:00:00 00:00:00 Medical Center Pay History [facility] 2022-09-15 2022-09-15 1 [facility] Housing Places 00:00:00 00:00:00 Medical Ce nter Lived History [facility] 2022-09-15 2022-09-15 [address] [facility] [employer] Homeless 00:00:00 00:00:00 Medical Center Last Year Sex Assigned At [birth year] [facility] 00:00:00 00:00:00 Smoking Status Start Date Stop Date Source Tobacco smoking consumption unknown [facility] Tobacco smoking status [facility] [place] Medications Ordered Filled Start Stop Current Ordering Indication Dosage Frequency Signature Comments Components Source Medication Medication Date Date Medication? Clinician (SIG) Name Name hydrALAZINE Yes 25 mg = 1 M emoria 25 mg oral 6-16 tab, PO, l tablet 14:18: Q8H, # 90 Dionicio n 00 tab, 0 Refill(s), Pharmacy: [facility], 170.18, cm, 11/24/22 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, Height, 97.591, kg, 11/24/22 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, Weight hydrALAZINE Yes 25 mg = 1 M emoria 25 mg oral 6-16 tab, PO, l tablet 14:18: Q8H, # 90 Dionicio n 00 tab, 0 Refill(s), Pharmacy: [facility], 170.18, cm, 11/24/22 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, Height, 97.591, kg, 11/24/22 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, Weight diclofenac Yes See Memoria topical 1% 6-04 Instructio l gel 14:51: ns, APPLY [place] 00 2 GRAMS TO AFFECTED AREA FOUR TIMES A DAY, # 100 gm, 0 Refill(s), Pharmacy: [facility], 170.18, cm, 11/24/22 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, Height, 97.591, kg, 11/24/22 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, Weight diclofenac 3-0 Yes See Memoria topical 1% 6-04 Instructio l gel 14:51: ns, APPLY Alex 00 2 GRAMS TO AFFECTED AREA FOUR TIMES A DAY, # 100 gm, 0 Refill(s), Pharmacy: [facility], 170.18, cm, 11/24/22 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, Height, 97.591, kg, 11/24/22 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, Weight polyethylen 2023-0 Yes 17 gm, PO, Memoria e glycol 3-16 Daily, X l 3350 oral 16:32: 60 day, # Her [place] powder for 00 527 gm, 0 reconstitut Refill(s), ion Pharmacy: [facility], 170.18, cm, 11/24/22 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, Height, 97.591, kg, 11/24/22 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, Weight polyethylen 2023-0 Yes 17 gm, PO, Memoria e glycol 3-16 Daily, X l 3350 oral 16:32: 60 day, # Her [place] powder for 00 527 gm, 0 reconstitut Refill(s), ion Pharmacy: [facility], 170.18, cm, 11/24/22 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, Height, 97.591, kg, 11/24/22 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, Weight polyethylen 2023-0 Yes 17 gm, PO, Memoria e glycol 3-16 Daily, X l 3350 oral 16:32: 60 day, # Her [place] powder for 00 527 gm, 0 reconstitut Refill(s), ion Pharmacy: [facility], 170.18, cm, 11/24/22 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, Height, 97.591, kg, 11/24/22 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, Weight polyethylen 2023-0 Yes 17 gm, PO, Memoria e glycol 3-16 Daily, X l 3350 oral 16:32: 60 day, # Her [place] powder for 00 527 gm, 0 reconstitut Refill(s), ion Pharmacy: [facility], 170.18, cm, 11/24/22 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, Height, 97.591, kg, 11/24/22 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, Weight polyethylen 2022-0 Yes 17 gm, PO, Memoria e glycol 3-16 Daily, X l 3350 oral 16:32: 60 day, # [place] powder for 00 527 gm, 0 reconstitut Refill(s), ion Pharmacy: [facility], 170.18, cm, 11/24/22 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, Height, 97.591, kg, 11/24/22 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, Weight Voltaren 2022-0 Yes 2 gm, TOP, Mem oria Topical 1% 3-16 QID, # 100 l topical gel 16:31: gm, 0 Gisela nn 00 Refill(s), Pharmacy: [facility], 170.18, cm, 11/24/22 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, Height, 97.591, kg, 11/24/22 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, Weight Voltaren 2022-0 Yes 2 gm, TOP, Mem oria Topical 1% 3-16 QID, # 100 l topical gel 16:31: gm, 0 Gisela nn 00 Refill(s), Pharmacy: [facility], 170.18, cm, 11/24/22 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, Height, 97.591, kg, 11/24/22 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, Weight Voltaren 2022-0 Yes 2 gm, TOP, Mem oria Topical 1% 3-16 QID, # 100 l topical gel 16:31: gm, 0 Gisela nn 00 Refill(s), Pharmacy: [facility], 170.18, cm, 11/24/22 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, Height, 97.591, kg, 11/24/22 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, Weight Voltaren 2022-0 Yes 2 gm, TOP, Mem oria Topical 1% 3-16 QID, # 100 l topical gel 16:31: gm, 0 Gisela nn 00 Refill(s), Pharmacy: [facility], 170.18, cm, 11/24/22 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, Height, 97.591, kg, 11/24/22 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, Weight Voltaren 2022-0 Yes 2 gm, TOP, Mem oria Topical 1% 3-16 QID, # 100 l topical gel 16:31: gm, 0 Gisela nn 00 Refill(s), Pharmacy: [facility], 170.18, cm, 11/24/22 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, Height, 97.591, kg, 11/24/22 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, Weight methylpheni 2022-0 Yes 5 mg = 1 Me moria date 5 mg 3-16 tab, PO, l oral tablet 16:30: BID-05-03, Alex 00 # 60 tab, 0 Refill(s), Pharmacy: [facility], 170.18, cm, 11/24/22 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, Height, 97.591, kg, 11/24/22 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, Weight trazodone 2022-0 Yes 25 mg = Memor ia 50 mg oral 3-16 0.5 tab, l tablet 16:30: PO, Alex 00 Bedtime, # 45 tab, 0 Refill(s), Pharmacy: [facility], 170.18, cm, 11/24/22 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, Height, 97.591, kg, 11/24/22 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, Weight menthol 4% 2022-0 Yes moderate Mem oria topical gel 3-16 amount, l 16:30: TOP, QID, Alex 00 X 30 day, # 118 mL, 0 Refill(s), Pharmacy: [facility], 170.18, cm, 11/24/22 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, Height, 97.591, kg, 11/24/22 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, Weight methylpheni 3-0 Yes 5 mg = 1 Me moria date 5 mg 3-16 tab, PO, l oral tablet 16:30: BID-05-03, [place] 00 # 60 tab, 0 Refill(s), Pharmacy: [facility], 170.18, cm, 11/24/22 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, Height, 97.591, kg, 11/24/22 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, Weight trazodone 2022-0 Yes 25 mg = Memor ia 50 mg oral 3-16 0.5 tab, l tablet 16:30: PO, [place] 00 Bedtime, # 45 tab, 0 Refill(s), Pharmacy: [facility], 170.18, cm, 11/24/22 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, Height, 97.591, kg, 11/24/22 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, Weight menthol 4% 2022-0 Yes moderate Mem oria topical gel 3-16 amount, l 16:30: TOP, QID, Alex 00 X 30 day, # 118 mL, 0 Refill(s), Pharmacy: [facility]08, 170.18, cm, 11/24/22 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, Height, 97.591, kg, 11/24/22 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, Weight menthol 4% 2022-0 Yes moderate Mem oria topical gel 3-16 amount, l 16:30: TOP, QID, Alex 00 X 30 day, # 118 mL, 0 Refill(s), Pharmacy: [facility], 170.18, cm, 11/24/22 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, Height, 97.591, kg, 11/24/22 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, Weight methylpheni 2022-0 Yes 5 mg = 1 Me moria date 5 mg 3-16 tab, PO, l oral tablet 16:30: BID, # 60 tab, 0 Refill(s), Pharmacy: [facility], 170.18, cm, 11/24/22 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, Height, 97.591, kg, 11/24/22 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, Weight trazodone 2022-0 Yes 25 mg = Memor ia 50 mg oral 3-16 0.5 tab, l tablet 16:30: PO, [place] 00 Bedtime, # 45 tab, 0 Refill(s), Pharmacy: [facility], 170.18, cm, 11/24/22 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, Height, 97.591, kg, 11/24/22 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, Weight menthol 4% 2022-0 Yes moderate Mem oria topical gel 3-16 amount, l 16:30: TOP, QID, [place] 00 X 30 day, # 118 mL, 0 Refill(s), Pharmacy: [facility], 170.18, cm, 11/24/22 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, Height, 97.591, kg, 11/24/22 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, Weight methylpheni 2023-0 Yes 5 mg = 1 Me moria date 5 mg 3-16 tab, PO, l oral tablet 16:30: BID-05-03, [place] # 60 tab, 0 Refill(s), Pharmacy: [facility], 170.18, cm, 11/24/22 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, Height, 97.591, kg, 11/24/22 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, Weight trazodone 2022-0 Yes 25 mg = Memor ia 50 mg oral 3-16 0.5 tab, l tablet 16:30: PO, [place] 00 Bedtime, # 45 tab, 0 Refill(s), Pharmacy: [facility], 170.18, cm, 11/24/22 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, Height, 97.591, kg, 11/24/22 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, Weight menthol 4% 2022-0 Yes moderate Mem oria topical gel 3-16 amount, l 16:30: TOP, QID, [place] 00 X 30 day, # 118 mL, 0 Refill(s), Pharmacy: [facility], 170.18, cm, 11/24/22 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, Height, 97.591, kg, 11/24/22 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, Weight methylpheni 2023-0 Yes 5 mg = 1 Me moria date 5 mg 3-16 tab, PO, l oral tablet 16:30: BID, [place] 00 # 60 tab, 0 Refill(s), Pharmacy: [facility], 170.18, cm, 11/24/22 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, Height, 97.591, kg, 11/24/22 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, Weight trazodone 2022-0 Yes 25 mg = Memor ia 50 mg oral 3-16 0.5 tab, l tablet 16:30: PO, [place] 00 Bedtime, # 45 tab, 0 Refill(s), Pharmacy: [facility], 170.18, cm, 11/24/22 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, Height, 97.591, kg, 11/24/22 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, Weight Procardia 2022-0 Yes 90 mg = 1 Mem oria XL 90 mg 3-16 tab, PO, l oral 16:29: Daily, # [place] tablet, 00 90 tab, 0 extended Refill(s), release Pharmacy: [facility], 170.18, cm, 11/24/22 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, Height, 97.591, kg, 11/24/22 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, Weight NIFEdipine 2022-0 Yes 30 mg = 1 Me moria 30 mg oral 3-16 tab, PO, l tablet, 16:29: Bedtime, # Herm ruddy extended 00 90 tab, 0 release Refill(s), Pharmacy: [facility], 170.18, cm, 11/24/22 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, Height, 97.591, kg, 11/24/22 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, Weight sertraline 2022-0 Yes 100 mg = 1 M emoria 100 mg oral 3-16 tab, PO, l tablet 16:29: Daily, # [place] 00 90 tab, 0 Refill(s), Pharmacy: [facility], 170.18, cm, 11/24/22 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, Height, 97.591, kg, 11/24/22 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, Weight Procardia 2022-0 Yes 90 mg = 1 Mem oria XL 90 mg 3-16 tab, PO, l oral 16:29: Daily, # Alex tablet, 00 90 tab, 0 extended Refill(s), release Pharmacy: [facility], 170.18, cm, 11/24/22 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, Height, 97.591, kg, 11/24/22 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, Weight NIFEdipine 2022-0 Yes 30 mg = 1 Me moria 30 mg oral 3-16 tab, PO, l tablet, 16:29: Bedtime, # Herm ruddy extended 00 90 tab, 0 release Refill(s), Pharmacy: [facility]08, 170.18, cm, 11/24/22 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, Height, 97.591, kg, 11/24/22 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, Weight sertraline 2022-0 Yes 100 mg = 1 M emoria 100 mg oral 3-16 tab, PO, l tablet 16:29: Daily, # Alex 00 90 tab, 0 Refill(s), Pharmacy: [facility]08, 170.18, cm, 11/24/22 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, Height, 97.591, kg, 11/24/22 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, Weight Procardia 3-0 Yes 90 mg = 1 Mem oria XL 90 mg 3-16 tab, PO, l oral 16:29: Daily, # Alex tablet, 00 90 tab, 0 extended Refill(s), release Pharmacy: [facility]08, 170.18, cm, 11/24/22 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, Height, 97.591, kg, 11/24/22 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, Weight NIFEdipine 2022-0 Yes 30 mg = 1 Me moria 30 mg oral 3-16 tab, PO, l tablet, 16:29: Bedtime, # Herm ruddy extended 00 90 tab, 0 release Refill(s), Pharmacy: [facility]08, 170.18, cm, 11/24/22 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, Height, 97.591, kg, 11/24/22 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, Weight sertraline 3-0 Yes 100 mg = 1 M emoria 100 mg oral 3-16 tab, PO, l tablet 16:29: Daily, # Alex 00 90 tab, 0 Refill(s), Pharmacy: [facility]08, 170.18, cm, 11/24/22 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, Height, 97.591, kg, 11/24/22 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, Weight Procardia 3-0 Yes 90 mg = 1 Mem oria XL 90 mg 3-16 tab, PO, l oral 16:29: Daily, # [place] tablet, 00 90 tab, 0 extended Refill(s), release Pharmacy: [facility]08, 170.18, cm, 11/24/22 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, Height, 97.591, kg, 11/24/22 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, Weight NIFEdipine 3-0 Yes 30 mg = 1 Me moria 30 mg oral 3-16 tab, PO, l tablet, 16:29: Bedtime, # Herm ruddy extended 00 90 tab, 0 release Refill(s), Pharmacy: [facility]08, 170.18, cm, 11/24/22 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, Height, 97.591, kg, 11/24/22 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, Weight sertraline 3-0 Yes 100 mg = 1 M emoria 100 mg oral 3-16 tab, PO, l tablet 16:29: Daily, # [place] 00 90 tab, 0 Refill(s), [facility]: [facility] [facility], 170.18, cm, 11/24/22 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, Height, 97.591, kg, 11/24/22 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, Weight Procardia 3-0 Yes 90 mg = 1 Mem oria XL 90 mg 3-16 tab, PO, l oral 16:29: Daily, # [place] tablet, 00 90 tab, 0 extended Refill(s), release Pharmacy: [facility], 170.18, cm, 11/24/22 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, Height, 97.591, kg, 11/24/22 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, Weight NIFEdipine 3-0 Yes 30 mg = 1 Me moria 30 mg oral 3-16 tab, PO, l tablet, 16:29: Bedtime, # [facility] extended 00 90 tab, 0 release Refill(s), Pharmacy: [facility]08, 170.18, cm, 11/24/22 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, Height, 97.591, kg, 11/24/22 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, Weight sertraline 3-0 Yes 100 mg = 1 M emoria 100 mg oral 3-16 tab, PO, l tablet 16:29: Daily, # [place] 00 90 tab, 0 Refill(s), Pharmacy: [facility]08, 170.18, cm, 11/24/22 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, Height, 97.591, kg, 11/24/22 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, Weight Keppra 750 3-0 Yes 750 mg = 1 M emoria mg oral 3-16 tab, PO, l tablet 16:28: BID, # 180 Gisela nn 00 tab, 0 Refill(s), Pharmacy: [facility]08, 170.18, cm, 11/24/22 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, Height, 97.591, kg, 11/24/22 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, Weight losartan 25 2022-0 Yes 100 mg = 4 Memoria mg oral 3-16 tab, PO, l tablet 16:28: Daily, # Alex 00 360 tab, 0 Refill(s), Pharmacy: [facility]08, 170.18, cm, 11/24/22 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, Height, 97.591, kg, 11/24/22 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, Weight Keppra 750 3-0 Yes 750 mg = 1 M emoria mg oral 3-16 tab, PO, l tablet 16:28: BID, # 180 Gisela nn 00 tab, 0 Refill(s), Pharmacy: [facility]08, 170.18, cm, 11/24/22 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, Height, 97.591, kg, 11/24/22 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, Weight losartan 25 2022-0 Yes 100 mg = 4 Memoria mg oral 3-16 tab, PO, l tablet 16:28: Daily, # Alex 00 360 tab, 0 Refill(s), Pharmacy: [facility]08, 170.18, cm, 11/24/22 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, Height, 97.591, kg, 11/24/22 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, Weight Keppra 750 3-0 Yes 750 mg = 1 M emoria mg oral 3-16 tab, PO, l tablet 16:28: BID, # 180 Gisela nn 00 tab, 0 Refill(s), Pharmacy: [facility]08, 170.18, cm, 11/24/22 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, Height, 97.591, kg, 11/24/22 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, Weight losartan 25 2022-0 Yes 100 mg = 4 Memoria mg oral 3-16 tab, PO, l tablet 16:28: Daily, # Alex 00 360 tab, 0 Refill(s), Pharmacy: [facility]08, 170.18, cm, 11/24/22 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, Height, 97.591, kg, 11/24/22 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, Weight Keppra 750 2022-0 Yes 750 mg = 1 M emoria mg oral 3-16 tab, PO, l tablet 16:28: BID, # 180 Gisela nn 00 tab, 0 Refill(s), Pharmacy: [facility]08, 170.18, cm, 11/24/22 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, Height, 97.591, kg, 11/24/22 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, Weight Keppra 750 2022-0 Yes 750 mg = 1 M emoria mg oral 3-16 tab, PO, l tablet 16:28: BID, # 180 Gisela nn 00 tab, 0 Refill(s), Pharmacy: [facility]08, 170.18, cm, 11/24/22 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, Height, 97.591, kg, 11/24/22 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, Weight losartan 25 2022-0 Yes 100 mg = 4 Memoria mg oral 3-16 tab, PO, l tablet 16:28: Daily, # [place] 00 360 tab, 0 Refill(s), Pharmacy: [facility]08, 170.18, cm, 11/24/22 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, Height, 97.591, kg, 11/24/22 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, Weight losartan 25 2022-0 Yes 100 mg = 4 Memoria mg oral 3-16 tab, PO, l tablet 16:28: Daily, # Alex 00 360 tab, 0 Refill(s), Pharmacy: [facility]08, 170.18, cm, 11/24/22 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, Height, 97.591, kg, 11/24/22 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, Weight Pepcid 20 2022-0 Yes 20 mg = 1 Mem oria mg oral 3-16 tab, PO, l tablet 16:27: Daily, # [place] 00 90 tab, 0 Refill(s), Pharmacy: [facility]08, 170.18, cm, 11/24/22 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, Height, 97.591, kg, 11/24/22 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, Weight hydrALAZINE 2022-0 Yes 25 mg = 1 M emoria 25 mg oral 3-16 tab, PO, l tablet 16:27: Q8H, # 270 Gisela nn 00 tab, 0 Refill(s), Pharmacy: [facility]08, 170.18, cm, 11/24/22 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, Height, 97.591, kg, 11/24/22 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, Weight insulin 2022-0 Yes 15 unit, Memori a glargine 3-16 SUB-Q, l 100 16:27: Bedtime, # [place] units/mL 00 15 mL, 2 subcutaneou Refill(s), s solution Pharmacy: [facility]08, 170.18, cm, 11/24/22 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, Height, 97.591, kg, 11/24/22 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, Weight insulin 2022-0 Yes 15 unit, Memori a glargine 3-16 SUB-Q, l 100 16:27: Bedtime, # Alex units/mL 00 15 mL, 2 subcutaneou Refill(s), s solution Pharmacy: [facility]08, 170.18, cm, 11/24/22 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, Height, 97.591, kg, 11/24/22 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, Weight Pepcid 20 2022-0 Yes 20 mg = 1 Mem oria mg oral 3-16 tab, PO, l tablet 16:27: Daily, # Alex 00 90 tab, 0 Refill(s), Pharmacy: [facility]08, 170.18, cm, 11/24/22 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, Height, 97.591, kg, 11/24/22 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, Weight hydrALAZINE 2022-0 Yes 25 mg = 1 M emoria 25 mg oral 3-16 tab, PO, l tablet 16:27: Q8H, # 270 Gisela nn 00 tab, 0 Refill(s), Pharmacy: [facility]08, 170.18, cm, 11/24/22 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, Height, 97.591, kg, 11/24/22 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, Weight insulin 2022-0 Yes 15 unit, Memori a glargine 3-16 SUB-Q, l 100 16:27: Bedtime, # Alex units/mL 00 15 mL, 2 subcutaneou Refill(s), s solution Pharmacy: [facility]08, 170.18, cm, 11/24/22 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, Height, 97.591, kg, 11/24/22 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, Weight insulin 2022-0 Yes 15 unit, Memori a glargine 3-16 SUB-Q, l 100 16:27: Bedtime, # [place] units/mL 00 15 mL, 2 subcutaneou Refill(s), s solution Pharmacy: [facility]08, 170.18, cm, 11/24/22 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, Height, 97.591, kg, 11/24/22 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, Weight Pepcid 20 2022-0 Yes 20 mg = 1 Mem oria mg oral 3-16 tab, PO, l tablet 16:27: Daily, # [place] 00 90 tab, 0 Refill(s), Pharmacy: [facility]08, 170.18, cm, 11/24/22 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, Height, 97.591, kg, 11/24/22 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, Weight hydrALAZINE 2022-0 Yes 25 mg = 1 M emoria 25 mg oral 3-16 tab, PO, l tablet 16:27: Q8H, # 270 Gisela nn 00 tab, 0 Refill(s), Pharmacy: [facility]08, 170.18, cm, 11/24/22 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, Height, 97.591, kg, 11/24/22 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, Weight insulin 2022-0 Yes 15 unit, Memori a glargine 3-16 SUB-Q, l 100 16:27: Bedtime, # Alex units/mL 00 15 mL, 2 subcutaneou Refill(s), s solution Pharmacy: [facility]08, 170.18, cm, 11/24/22 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, Height, 97.591, kg, 11/24/22 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, Weight Pepcid 20 2022-0 Yes 20 mg = 1 Mem oria mg oral 3-16 tab, PO, l tablet 16:27: Daily, # Alex 00 90 tab, 0 Refill(s), Pharmacy: [facility]08, 170.18, cm, 11/24/22 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, Height, 97.591, kg, 11/24/22 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, Weight hydrALAZINE 2022-0 Yes 25 mg = 1 M emoria 25 mg oral 3-16 tab, PO, l tablet 16:27: Q8H, # 270 Gisela nn 00 tab, 0 Refill(s), Pharmacy: [facility]08, 170.18, cm, 11/24/22 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, Height, 97.591, kg, 11/24/22 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, Weight insulin 2022-0 Yes 15 unit, Memori a glargine 3-16 SUB-Q, l 100 16:27: Bedtime, # [place] units/mL 00 15 mL, 2 subcutaneou Refill(s), s solution Pharmacy: [facility]08, 170.18, cm, 11/24/22 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, Height, 97.591, kg, 11/24/22 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, Weight Pepcid 20 2022-0 Yes 20 mg = 1 Mem oria mg oral 3-16 tab, PO, l tablet 16:27: Daily, # Alex 00 90 tab, 0 Refill(s), Pharmacy: [facility]08, 170.18, cm, 11/24/22 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, Height, 97.591, kg, 11/24/22 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, Weight hydrALAZINE 0 Yes 25 mg = 1 M emoria 25 mg oral 3-16 tab, PO, l tablet 16:27: Q8H, # 270 Gisela nn 00 tab, 0 Refill(s), Pharmacy: [facility]08, 170.18, cm, 11/24/22 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, Height, 97.591, kg, 11/24/22 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, Weight insulin 0 Yes 15 unit, Memori a glargine 3-16 SUB-Q, l 100 16:27: Bedtime, # [place] units/mL 00 15 mL, 2 subcutaneou Refill(s), s solution Pharmacy: [facility]08, 170.18, cm, 11/24/22 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, Height, 97.591, kg, 11/24/22 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, Weight carvedilol Yes 25 mg = 1 Me moria 25 mg oral 3-16 tab, PO, l tablet 16:26: BID, # 180 Gisela nn 00 tab, 0 Refill(s), Pharmacy: [facility]08, 170.18, cm, 11/24/22 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, Height, 97.591, kg, 11/24/22 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, Weight Catapres 0 Yes 0.2 mg = 1 Mem oria 0.2 mg oral 3-16 tab, PO, l tablet 16:26: BID, # 180 Gisela nn 00 tab, 0 Refill(s), Pharmacy: [facility]08, 170.18, cm, 11/24/22 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, Height, 97.591, kg, 11/24/22 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, Weight docusate-se 2022-0 Yes 2 tab, PO, Memoria nna 50 3-16 QPM, X 90 l mg-8.6 mg 16:26: day, # 180 He r[place] oral tablet 00 tab, 0 Refill(s), Pharmacy: [facility]08, 170.18, cm, 11/24/22 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, Height, 97.591, kg, 11/24/22 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, Weight carvedilol 2022-0 Yes 25 mg = 1 Me moria 25 mg oral 3-16 tab, PO, l tablet 16:26: BID, # 180 Gisela nn 00 tab, 0 Refill(s), Pharmacy: [facility]08, 170.18, cm, 11/24/22 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, Height, 97.591, kg, 11/24/22 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, Weight Catapres 2022-0 Yes 0.2 mg = 1 Mem oria 0.2 mg oral 3-16 tab, PO, l tablet 16:26: BID, # 180 Gisela nn 00 tab, 0 Refill(s), Pharmacy: [facility]08, 170.18, cm, 11/24/22 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, Height, 97.591, kg, 11/24/22 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, Weight docusate-se 2022-0 Yes 2 tab, PO, Memoria nna 50 3-16 QPM, X 90 l mg-8.6 mg 16:26: day, # 180 [place] oral tablet 00 tab, 0 Refill(s), Pharmacy: [facility]08, 170.18, cm, 11/24/22 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, Height, 97.591, kg, 11/24/22 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, Weight carvedilol 2022-0 Yes 25 mg = 1 Me moria 25 mg oral 3-16 tab, PO, l tablet 16:26: BID, # 180 Gisela nn 00 tab, 0 Refill(s), Pharmacy: [facility]08, 170.18, cm, 11/24/22 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, Height, 97.591, kg, 11/24/22 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, Weight Catapres 3-0 Yes 0.2 mg = 1 Mem oria 0.2 mg oral 3-16 tab, PO, l tablet 16:26: BID, # 180 Gisela nn 00 tab, 0 Refill(s), Pharmacy: [facility]08, 170.18, cm, 11/24/22 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, Height, 97.591, kg, 11/24/22 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, Weight docusate-se 2022-0 Yes 2 tab, PO, Memoria nna 50 3-16 QPM, X 90 l mg-8.6 mg 16:26: day, # 180 [place] oral tablet 00 tab, 0 Refill(s), Pharmacy: [facility]08, 170.18, cm, 11/24/22 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, Height, 97.591, kg, 11/24/22 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, Weight carvedilol 2022-0 Yes 25 mg = 1 Me moria 25 mg oral 3-16 tab, PO, l tablet 16:26: BID, # 180 Gisela nn 00 tab, 0 Refill(s), Pharmacy: [facility]08, 170.18, cm, 11/24/22 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, Height, 97.591, kg, 11/24/22 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, Weight Catapres 2022-0 Yes 0.2 mg = 1 Mem oria 0.2 mg oral 3-16 tab, PO, l tablet 16:26: BID, # 180 Gisela nn 00 tab, 0 Refill(s), Pharmacy: [facility]08, 170.18, cm, 11/24/22 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, Height, 97.591, kg, 11/24/22 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, Weight docusate-se 2022-0 Yes 2 tab, PO, Memoria nna 50 3-16 QPM, X 90 l mg-8.6 mg 16:26: day, # 180 He rmann oral tablet 00 tab, 0 Refill(s), Pharmacy: [facility]08, 170.18, cm, 11/24/22 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, Height, 97.591, kg, 11/24/22 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, Weight carvedilol 3-0 Yes 25 mg = 1 Me moria 25 mg oral 3-16 tab, PO, l tablet 16:26: BID, # 180 Gisela nn 00 tab, 0 Refill(s), Pharmacy: [facility] 808, 170.18, cm, 11/24/22 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, Height, 97.591, kg, 11/24/22 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, Weight Catapres 0 Yes 0.2 mg = 1 Mem oria 0.2 mg oral 3-16 tab, PO, l tablet 16:26: BID, # 180 Gisela nn 00 tab, 0 Refill(s), Pharmacy: [facility]08, 170.18, cm, 11/24/22 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, Height, 97.591, kg, 11/24/22 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, Weight docusate-se 0 Yes 2 tab, PO, Memoria nna 50 3-16 QPM, X 90 l mg-8.6 mg 16:26: day, # 180 He [place] oral tablet 00 tab, 0 Refill(s), Pharmacy: [facility]08, 170.18, cm, 11/24/22 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, Height, 97.591, kg, 11/24/22 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, Weight aspirin 81 2022-0 Yes 81 mg = 1 Me moria mg tablet, 3-16 tab, PO, l enteric 16:25: Daily, # Dionicio n coated 00 90 tab, 0 Refill(s), Pharmacy: [facility] 808, 170.18, cm, 11/24/22 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, Height, 97.591, kg, 11/24/22 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, Weight atorvastati 0 Yes 40 mg = 1 M emoria n 40 mg 3-16 tab, PO, l oral tablet 16:25: Bedtime, # [place] 00 90 tab, 0 Refill(s), Pharmacy: [facility]08, 170.18, cm, 11/24/22 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, Height, 97.591, kg, 11/24/22 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, Weight aspirin 81 2022-0 Yes 81 mg = 1 Me moria mg tablet, 3-16 tab, PO, l enteric 16:25: Daily, # Dionicio n coated 00 90 tab, 0 Refill(s), Pharmacy: [facility] 808, 170.18, cm, 11/24/22 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, Height, 97.591, kg, 11/24/22 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, Weight atorvastati 2022-0 Yes 40 mg = 1 M emoria n 40 mg 3-16 tab, PO, l oral tablet 16:25: Bedtime, # Alex 00 90 tab, 0 Refill(s), Pharmacy: [facility] 808, 170.18, cm, 11/24/22 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, Height, 97.591, kg, 11/24/22 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, Weight aspirin 81 2022-0 Yes 81 mg = 1 Me moria mg tablet, 3-16 tab, PO, l enteric 16:25: Daily, # Dionicio n coated 00 90 tab, 0 Refill(s), Pharmacy: [facility] 808, 170.18, cm, 11/24/22 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, Height, 97.591, kg, 11/24/22 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, Weight atorvastati 2022-0 Yes 40 mg = 1 M emoria n 40 mg 3-16 tab, PO, l oral tablet 16:25: Bedtime, # Alex 00 90 tab, 0 Refill(s), Pharmacy: [facility] 808, 170.18, cm, 11/24/22 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, Height, 97.591, kg, 11/24/22 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, Weight aspirin 81 2022-0 Yes 81 mg = 1 Me moria mg tablet, 3-16 tab, PO, l enteric 16:25: Daily, # Dionicio n coated 00 90 tab, 0 Refill(s), Pharmacy: [facility]08, 170.18, cm, 11/24/22 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, Height, 97.591, kg, 11/24/22 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, Weight atorvastati 3-0 Yes 40 mg = 1 M emoria n 40 mg 3-16 tab, PO, l oral tablet 16:25: Bedtime, # [place] 00 90 tab, 0 Refill(s), Pharmacy: [facility] 808, 170.18, cm, 11/24/22 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, Height, 97.591, kg, 11/24/22 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, Weight aspirin 81 2022-0 Yes 81 mg = 1 Me moria mg tablet, 3-16 tab, PO, l enteric 16:25: Daily, # Dionicio n coated 00 90 tab, 0 Refill(s), Pharmacy: [facility] 808, 170.18, cm, 11/24/22 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, Height, 97.591, kg, 11/24/22 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, Weight atorvastati 0 Yes 40 mg = 1 M emoria n 40 mg 3-16 tab, PO, l oral tablet 16:25: Bedtime, # [place] 00 90 tab, 0 Refill(s), Pharmacy: [facility]08, 170.18, cm, 11/24/22 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, Height, 97.591, kg, 11/24/22 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, Weight semaglutide 2022-0 Yes .25mg Q7D Inject [facility] (OZEMPIC) 3-03 0.25 mg [facility] 0.25 mg or 19:58: subcutaneo M edical 0.5 mg (2 09 usly once Cente r mg/1.5 mL) a week. subcutaneou s pen cloNIDine 2022-0 Yes .2mg Q.5D Take 0.[address] [facility] HCL 3-03 mg by [facility] (CATAPRES) 19:58: mouth 2 Medi meghana 0.2 MG 09 (two) Center tablet times daily. aspirin 81 2022-0 Yes 81mg QD Take [address] MG EC 3-03 by mouth [facility] tablet 19:58: daily. [facility] 09 Center semaglutide 2022-0 Yes .25mg Q7D Inject [facility] (OZEMPIC) 3-03 0.25 mg [facility] 0.25 mg or 19:58: subcutaneo M edical 0.5 mg (2 09 usly once Cente r mg/1.5 mL) a week. subcutaneou s pen cloNIDine 2022-0 Yes .2mg Q.5D Take 0.[address] [facility] HCL 3-03 mg by [facility] (CATAPRES) 19:58: mouth 2 Medi meghana 0.2 MG 09 (two) Center tablet times daily. aspirin 81 3-0 Yes 81mg QD Take [address] MG EC 3-03 by mouth [facility] tablet 19:58: daily. [address] semaglutide 2022-0 Yes .25mg Q7D Inject [facility] (OZEMPIC) 3-03 0.25 mg [facility] 0.25 mg or 19:58: subcutaneo M edical 0.5 mg (2 09 usly once Cente r mg/1.5 mL) a week. subcutaneou s pen cloNIDine 2023-0 Yes .2mg Q.5D Take 0.[address] [facility] HCL 3-03 mg by [facility] (CATAPRES) 19:58: mouth 2 Medi meghana 0.2 MG 09 (two) Center tablet times daily. aspirin 81 3-0 Yes 81mg QD Take [address] MG EC 3-03 by mouth [facility] tablet 19:58: daily. [address] semaglutide 2022-0 Yes .25mg Q7D Inject [facility] (OZEMPIC) 3-03 0.25 mg [facility] 0.25 mg or 19:58: subcutaneo M edical 0.5 mg (2 09 usly once Cente r mg/1.5 mL) a week. subcutaneou s pen cloNIDine 2023-0 Yes .2mg Q.5D Take 0.[address] [facility] [address] HCL 3-03 mg by [facility] (CATAPRES) 19:58: mouth 2 Medi meghana 0.2 MG 09 (two) Center tablet times daily. aspirin 81 3-0 Yes 81mg QD Take [address] MG EC 3-03 by mouth [facility] tablet 19:58: daily. [address] semaglutide 3-0 Yes .25mg Q7D Inject [facility] (OZEMPIC) 3-03 0.25 mg [facility] 0.25 mg or 19:58: subcutaneo M edical 0.5 mg (2 09 usly once Cente r mg/1.5 mL) a week. subcutaneou s pen cloNIDine 2023-0 Yes .2mg Q.5D Take 0.[address] [facility] HCL 3-03 mg by [facility] (CATAPRES) 19:58: mouth 2 Medi meghana 0.2 MG 09 (two) Center tablet times daily. aspirin 81 Yes 81mg QD Take [address] MG EC 3-03 by mouth [facility] tablet 19:58: daily. [address] insulin Yes 15U QD Inject 15 [facility] glargine 3-[facility] Units [facility] (Lantus 00:00: subcutaneo Medi meghana Solostar 00 usly every Cente r U-100 morning. Insulin) 100 unit/mL (3 mL) In penicillin Yes [address] [facility] G potassium 3-03 Million [facility] IVPB 00:00: Units Medical 00 intravenou Center sly every 8 (eight) hours End 12/26/22. melatonin Yes 10mg QD Take [address] 10 mg Tab 3-03 by mouth [facility] 00:00: nightly. [address] insulin Yes 15U QD Inject 15 [facility] glargine 3-03 Units [facility] (Lantus 00:00: subcutaneo Medi meghana Solostar 00 usly every Cente r U-100 morning. Insulin) 100 unit/mL (3 mL) In penicillin Yes [address] [facility] potassium 3-03 Million [facility] IVPB 00:00: Units Medical 00 intravenou Center sly every 8 (eight) hours End 12/26/22. melatonin Yes 10mg QD Take [address] 10 mg Tab 3-03 by mouth [facility] 00:00: nightly. [address] insulin Yes 15U QD Inject 15 [facility] glargine 3-03 Units [facility] (Lantus 00:00: subcutaneo Medi meghana Solostar 00 usly every Cente r U-100 morning. Insulin) 100 unit/mL (3 mL) In penicillin Yes [address] [facility] potassium 3-03 Million [facility] IVPB 00:00: Units Medical 00 intravenou Center sly every 8 (eight) hours End 12/26/22. melatonin 0 Yes 10mg QD Take [address] 10 mg Tab 3-03 by mouth [facility] 00:00: nightly. [address] insulin Yes 15U QD Inject 15 [facility] glargine 3-03 Units [facility] (Lantus 00:00: subcutaneo Medi meghana Solostar 00 usly every Cente r U-100 morning. Insulin) 100 unit/mL (3 mL) In penicillin Yes [address] [facility] potassium 3-03 Million [facility] IVPB 00:00: Units Medical 00 intravenou Center sly every 8 (eight) hours End 12/26/22. melatonin Yes 10mg QD Take [address] 10 mg Tab 3-03 by mouth [facility] 00:00: nightly. [address] insulin Yes 15U QD Inject 15 [facility] glargine 3-03 Units [facility] (Lantus 00:00: subcutaneo Medi meghana Solostar 00 usly every Cente r U-100 morning. Insulin) 100 unit/mL (3 mL) In penicillin Yes [address] [facility] potassium 3-03 Million [facility] IVPB 00:00: Units Medical 00 intravenou Center sly every 8 (eight) hours End 12/26/22. melatonin Yes 10mg QD Take [address] 10 mg Tab 3-03 by mouth [facility] 00:00: nightly. [address] hydrALAZINE 2023- No 25mg Take [address] [facility] (APRESOLINE 3-03 03-02 tablet (25 L ukes ) 25 MG 00:00: 23:59 mg total) Medi meghana tablet 00 :00 by mouth Center every 8 (eight) hours. levETIRAcet 2023- No 750mg Q.5D Take 1.[address] [facility] [facility] am (KEPPRA) 3-03 03-02 tablets [facility] 500 MG 00:00: 23:59 (750 mg Medical tablet 00 :00 total) by Center mouth 2 (two) times daily. hydrALAZINE 2023- No 25mg Take [address] [facility] (APRESOLINE 3-03 03-02 tablet (25 L ukes ) 25 MG 00:00: 23:59 mg total) Medi meghana tablet 00 :00 by mouth Center every 8 (eight) hours. levETIRAcet 2022-2023- No 750mg Q.5D Take 1.[address] [facility] [facility] am (KEPPRA) 11-21 03-02 tablets [facility] 500 MG 00:00: 23:59 (750 mg Medical tablet 00 :00 total) by Center mouth 2 (two) times daily. hydrALAZINE 2022-2023- No 25mg Take [address] [facility] (APRESOLINE -11 21-02 tablet (25 L ukes ) 25 MG 00:00: 23:59 mg total) Medi meghana tablet 00 :00 by mouth Center every 8 (eight) hours. levETIRAcet 2022-2023- No 750mg Q.5D Take 1.[address] [facility] [address] am (KEPPRA) 11-21- tablets [facility] 500 MG 00:00: 23:59 (750 mg Medical tablet 00 :00 total) by Center mouth 2 (two) times daily. hydrALAZINE 2023- No 25mg Take [address] [facility] (APRESOLINE 11-21-02 tablet (25 L ukes ) 25 MG 00:00: 23:59 mg total) Medi meghana tablet 00 :00 by mouth Center every 8 (eight) hours. levETIRAcet 2023- No 750mg Q.5D Take 1.[address] am (KEPPRA) 11-2102 tablets [facility] 500 MG 00:00: 23:59 (750 mg Medical tablet 00 :00 total) by Center mouth 2 (two) times daily. hydrALAZINE 2023- No 25mg Take [address] [facility] (APRESOLINE 11-21-02 tablet (25 L ukes ) 25 MG 00:00: 23:59 mg total) Medi meghana tablet 00 :00 by mouth Center every 8 (eight) hours. levETIRAcet 2022-2023- No 750mg Q.5D Take 1.[address] [facility] am (KEPPRA) 11-21-02 tablets Luke s 500 MG 00:00: 23:59 (750 mg Medical tablet 00 :00 total) by Center mouth 2 (two) times daily. naphazoline 2022- No 1[drp] Q.25D Place [address] [facility] -pheniramin 3-03 03-13 drop into [facility] kes e 00:00: 23:59 both eyes Medical (NAPHCON-A) 00 :00 4 (four) Cent er 0.025-0.3 % times ophthalmic daily for solution 10 days. naphazoline 2022-0 2023- No 1[drp] Q.25D Place [address] [facility] -pheniramin 3- 03-13 drop into [facility] k[facility] e 00:00: 23:59 both eyes Medical (NAPHCON-A) 00 :00 4 (four) Cent er 0.025-0.3 % times ophthalmic daily for solution 10 days. naphazoline 2022-0 202- No 1[drp] Q.25D Place [address] [facility] -pheniramin 3-03 03-13 drop into [facility] k[facility] e 00:00: 23:59 both eyes Medical (NAPHCON-A) 00 :00 4 (four) Cent er 0.025-0.3 % times ophthalmic daily for solution 10 days. naphazoline 2022-0 202- No 1[drp] Q.25D Place [address] [facility] -pheniramin 3-03 03-13 drop into [place] k[facility] e 00:00: 23:59 both eyes Medical (NAPHCON-A) 00 :00 4 (four) Cent er 0.025-0.3 % times ophthalmic daily for solution 10 days. naphazoline 2022-0 2022- No 1[drp] Q.25D Place [address] [facility] -pheniramin 3-03 03-13 drop into [place] k[facility] e 00:00: 23:59 both eyes Medical (NAPHCON-A) 00 :00 4 (four) Cent er 0.025-0.3 % times ophthalmic daily for solution 10 days. penicillin 2022-0 Yes 4 [facility], M [facility] G potassium 3-02 IV, Q8H, 0 l 22:01: Refill(s) penicillin 3-0 Yes 4 [facility] G potassium 3-02 IV, Q8H, 0 l 22:01: Refill(s) penicillin 3-0 Yes 4 [facility] G potassium 3-02 IV, Q8H, 0 l 22:01: Refill(s) penicillin 3-0 Yes 4 [facility] M [facility] G potassium 3-02 IV, Q8H, 0 l 22:01: Refill(s) [place] 00 penicillin 2022-0 Yes 4 [facility] G potassium 3-02 IV, Q8H, 0 l 22:01: Refill(s) insulin 2022-0 2022- No 20U Q.5D Inject [address] [facility] glargine 2-16 02-15 [facility] ([facility], 08:08: 00:00 subcutaneo Me dical SEMGLEE) 06 :00 usly 2 Center 100 unit/mL (two) injection times daily Use as directed . insulin 2022-0 2022- No 20U Q.5D Inject [address] [facility] glargine 2-16 02-15 [facility] ([facility], 08:08: 00:00 subcutaneo Me dical SEMGLEE) 06 :00 usly 2 Center 100 unit/mL (two) injection times daily Use as directed . insulin 2022- No 20U Q.5D Inject [address] [facility] glargine 2-16 02-15 [facility] (LANTUS, 08:08: 00:00 subcutaneo Me dical SEMGLEE) 06 :00 usly 2 Center 100 unit/mL (two) injection times daily Use as directed . insulin 2022-0 2022- No 20U Q.5D Inject [address] [facility] glargine 2-16 02-15 [facility] (LANTUS, 08:08: 00:00 subcutaneo Me dical SEMGLEE) 06 :00 usly 2 Center 100 unit/mL (two) injection times daily Use as directed . insulin 0 2022- No 20U Q.5D Inject [address] [facility] glargine 2-16 02-15 [facility] (LANTUS, 08:08: 00:00 subcutaneo Me dical SEMGLEE) 06 :00 usly 2 Center 100 unit/mL (two) injection times daily Use as directed . enoxaparin Yes 30mg Q24H Inject 0.[address] [facility] (LOVENOX) 2-16 mLs (30 mg [facility] 40 mg/0.4 00:00: total) Medica l mL Syrg 00 [facility] Center usly daily. enoxaparin 2023-0 Yes 30mg Q24H Inject 0.[address] (LOVENOX) 2-16 mLs (30 mg Luke s 40 mg/0.4 00:00: total) Medica l mL Syrg 00 [facility] usly daily. enoxaparin 2023-0 Yes 30mg Q24H Inject 0.[address] (LOVENOX) 2-16 mLs (30 mg Luke s 40 mg/0.4 00:00: total) Medica l mL Syrg 00 [facility] usly daily. enoxaparin 2023-0 Yes 30mg Q24H Inject 0.[address] (LOVENOX) 2-16 mLs (30 mg Luke s 40 mg/0.4 00:00: total) [facility]0 Yes 30mg Q24H Inject 0.[address] (LOVENOX) 2-16 mLs (30 mg Luke s 40 mg/0.4 00:00: total) [facility] carvediloL 2022-0 2023- No 25mg Q.5D Take [address] [facility] (COREG) 2-16 -16 tablets [facility] 12.5 MG 00:00: 23:59 (25 mg Medical tablet 00 :00 total) by Center mouth 2 (two) times daily. losartan 2022-0 2023- No 100mg QD [facility]COZAAR[facility] 2-06 11-16 [facility] 100 MG 00:00: 23:59 (100 mg Medical tablet 00 :00 total) by Center mouth daily. carvediloL 2022-0 2023- No 25mg Q.5D Take [address] [facility] (COREG) 2-16 02-16 tablets [facility] 12.5 MG 00:00: 23:59 (25 mg Medical tablet 00 :00 total) by Center mouth 2 (two) times daily. losartan 2022-0 202- No 100mg QD Take [facility] (CO[facility]AR[facility] 2-16 02-16 [facility] 100 MG 00:00: 23:59 (100 mg Medical tablet 00 :00 total) by Center mouth daily. carvediloL 2022-2023- No 25mg Q.5D Take [address] [facility] (COREG) 2-16 02-16 [facility] 12.5 MG 00:00: 23:59 (25 mg Medical tablet 00 :00 total) by Center mouth 2 (two) times daily. losartan 2022-2023- No 100mg QD Take [facility] (CO[facility] 2-16 02-16 [facility] 100 MG 00:00: 23:59 (100 mg Medical tablet 00 :00 total) by Center mouth daily. carvediloL 2022-2023- No 25mg Q.5D Take [address] [facility] (COREG) 2-16 02-16 [facility] 12.5 MG 00:00: 23:59 (25 mg Medical tablet 00 :00 total) by Center mouth 2 (two) times daily. losartan 2022-2023- No 100mg QD Take [facility] (CO[facility]AR[facility] 2-16 02-16 [facility] 100 MG 00:00: 23:59 (100 mg Medical tablet 00 :00 total) by Center mouth daily. carvediloL 2022-2023- No 25mg Q.5D Take [address] [facility] (COREG) 2-16 02-16 tablets [facility] 12.5 MG 00:00: 23:59 (25 mg Medical tablet 00 :00 total) by Center mouth 2 (two) times daily. losartan 2022-2023- No 100mg QD Take 1 [facility] (CO[facility]AR[facility] 2-16 02-16 [facility] 100 MG 00:00: 23:59 (100 mg Medical tablet 00 :00 total) by Center mouth daily. ertapenem 2022- No 500mg Q24H Inject [address] [facility] (INVanz) 11-06 03-03 mg [facility] IVPB 00:00: 00:00 intravenou Medica l 00 :00 sly daily Center for 20 days. insulin 2022-2022- No 24U QD Inject [address] [facility] glargine 16 03-03 [facility] (LANTUS, 00:00: 00:00 subcutaneo Me dical SEMGLEE) 00 :00 usly every Cente r 100 unit/mL morning injection Use as directed . insulin 2022- No 8U [facility]ject 8 [facility] lispro 2-16 03-03 [facility] (HumaLOG) 00:00: 00:00 subcutaneo M edical 100 unit/mL 00 :00 usly 3 Center injection (three) times daily before meals. insulin 2022- No 24U QD Inject [address] [facility] glargine 2-16 03-03 [facility] (Lantus 00:00: 00:00 subcutaneo Med ical Solostar 00 :00 usly every Cente r U-100 morning. Insulin) 100 unit/mL (3 mL) InPn ertapenem 2022- No 500mg Q24H Inject [address] [facility] (INVanz) 2-16 03-03 [facility] IVPB 00:00: 00:00 intravenou Medica l 00 :00 sly daily Center for 20 days. insulin 2022- No 24U QD Inject [address] [facility] glargine 2-16 03-03 [facility] (LANTUS, 00:00: 00:00 subcutaneo Me dical SEMGLEE) 00 :00 usly every Cente r 100 unit/mL morning injection Use as directed . insulin 2022- No 8U [facility]ject 8 [facility] lispro 2-16 03-03 [facility] (HumaLOG) 00:00: 00:00 subcutaneo M edical 100 unit/mL 00 :00 usly 3 Center injection (three) times daily before meals. insulin 2022- No 24U QD Inject [address] [facility] glargine 2-16 03-03 [facility] (Lantus 00:00: 00:00 subcutaneo Med ical Solostar 00 :00 usly every Cente r U-100 morning. Insulin) 100 unit/mL (3 mL) InPn ertapenem 2022- No 500mg Q24H Inject [address] [facility] (INVanz) 2-16 03-03 mg [facility] IVPB 00:00: 00:00 intravenou Medica l 00 :00 sly daily Center for 20 days. insulin 2022- No 24U QD Inject [address] [facility] glargine 2-16 03-03 [facility] (LANTUS, 00:00: 00:00 subcutaneo Me dical SEMGLEE) 00 :00 usly every Cente r 100 unit/mL morning injection Use as directed . insulin 2022- No 8U [facility]ject 8 [facility] lispro 2-16 03-03 [facility] (HumaLOG) 00:00: 00:00 subcutaneo M edical 100 unit/mL 00 :00 usly 3 Center injection (three) times daily before meals. insulin 2022- No 24U QD Inject [address] [facility] glargine 2-16 03-03 [facility] (Lantus 00:00: 00:00 subcutaneo Med ical Solostar 00 :00 usly every Cente r U-100 morning. Insulin) 100 unit/mL (3 mL) InPn ertapenem 2022- No 500mg Q24H Inject [address] [facility] (INVanz) 2-16 03-03 mg [facility] IVPB 00:00: 00:00 intravenou Medica l 00 :00 sly daily Center for 20 days. insulin 2022- No 24U QD Inject [address] [facility] glargine 2-16 03-03 [facility] (LANTUS, 00:00: 00:00 subcutaneo Me dical SEMGLEE) 00 :00 usly every Cente r 100 unit/mL morning injection Use as directed . insulin 2022- No 8U [facility]ject 8 [facility] lispro 2-16 03-03 [facility] (HumaLOG) 00:00: 00:00 subcutaneo M edical 100 unit/mL 00 :00 usly 3 Center injection (three) times daily before meals. insulin 2022- No 24U QD Inject [address] [facility] glargine 2-16 03-03 [facility] (Lantus 00:00: 00:00 subcutaneo Med ical Solostar 00 :00 usly every Cente r U-100 morning. Insulin) 100 unit/mL (3 mL) InPn ertapenem 2022- No 500mg Q24H Inject [address] [facility] (INVanz) 2-16 03-03 mg [facility] IVPB 00:00: 00:00 intravenou Medica l 00 :00 sly daily Center for 20 days. insulin 2022- No 24U QD Inject [address] [facility] glargine 2-16 03-03 [facility] (LANTUS, 00:00: 00:00 subcutaneo Me dical SEMGLEE) 00 :00 usly every Cente r 100 unit/mL morning injection Use as directed . insulin 2022- No 8U [facility]ject 8 [facility] lispro 2-16 03-03 [facility] (HumaLOG) 00:00: 00:00 subcutaneo M edical 100 unit/mL 00 :00 usly 3 Center injection (three) times daily before meals. insulin 2022- No 24U QD Inject [address] [facility] glargine 2-16 03-03 [facility] (Lantus 00:00: 00:00 subcutaneo Med ical Solostar 00 :00 usly every Cente r U-100 morning. Insulin) 100 unit/mL (3 mL) InPn enoxaparin 2022- No 40mg Q24H Inject 0.[address] [facility] (LOVENOX) 2-16 02-16 mLs (40 mg Robbin es 40 mg/0.4 00:00: 00:00 total) Medic al mL Syrg 00 :00 [facility] usly daily. enoxaparin 2022- No 40mg Q24H Inject 0.[address] [facility] (LOVENOX) 2-16 02-16 mLs (40 mg Robbin es 40 mg/0.4 00:00: 00:00 total) Medic al mL Syrg 00 :00 [facility] usly daily. enoxaparin 2022- No 40mg Q24H Inject 0.[address] [facility] (LOVENOX) 2-16 02-16 mLs (40 mg Robbin es 40 mg/0.4 00:00: 00:00 total) Medic al mL Syrg 00 :00 [facility] usly daily. enoxaparin 2022-2022- No 40mg Q24H Inject 0.[address] [facility] (LOVENOX) 2-16 02-16 mLs (40 mg Robbin es 40 mg/0.4 00:00: 00:00 total) Medic al mL Syrg 00 :00 subcutaneo Center usly daily. enoxaparin 2022- No 40mg Q24H Inject 0.[address] [facility] (LOVENOX) 2-16 02-16 mLs (40 mg Robbin es 40 mg/0.4 00:00: 00:00 total) Medic al mL Syrg 00 :00 subcutaneo Center usly daily. NIFEdipine 2023- No 90mg QD Take [address] [facility] (PROCARDIA- 2-15 02-15 tablet (90 L ukes XL) 90 MG 00:00: 23:59 mg total) Me dical (OSM) 24 hr 00 :00 by mouth Cent er tablet daily. insulin 2023- No 0U Inject 0-[address] [facility] lispro 2-15 02-15 [facility] (HumaLOG) 00:00: 23:59 subcutaneo M edical 100 unit/mL 00 :00 usly 3 Center injection (three) times daily before meals. NIFEdipine 2023- No 90mg QD Take [address] [facility] (PROCARDIA- 2-15 02-15 tablet (90 L ukes XL) 90 MG 00:00: 23:59 mg total) Me dical (OSM) 24 hr 00 :00 by mouth Cent er tablet daily. insulin 2023- No 0U Inject 0-[address] [facility] lispro 2-15 02-15 [facility] (HumaLOG) 00:00: 23:59 subcutaneo M edical 100 unit/mL 00 :00 usly 3 Center injection (three) times daily before meals. NIFEdipine 2023- No 90mg QD Take [address] [facility] (PROCARDIA- 2-15 02-15 tablet (90 L ukes XL) 90 MG 00:00: 23:59 mg total) Me dical (OSM) 24 hr 00 :00 by mouth Cent er tablet daily. insulin 2023- No 0U Inject 0-[address] [facility] lispro 2-15 02-15 [facility] (HumaLOG) 00:00: 23:59 subcutaneo M edical 100 unit/mL 00 :00 usly 3 Center injection (three) times daily before meals. NIFEdipine 2023- No 90mg QD Take [address] [facility] (PROCARDIA- 2-15 02-15 tablet (90 L ukes XL) 90 MG 00:00: 23:59 mg total) Me dical (OSM) 24 hr 00 :00 by mouth Cent er tablet daily. insulin 2023- No 0U Inject 0-[address] [facility] lispro 2-15 02-15 [facility] (HumaLOG) 00:00: 23:59 subcutaneo M edical 100 unit/mL 00 :00 usly 3 Center injection (three) times daily before meals. NIFEdipine 2023- No 90mg QD Take [address] [facility] (PROCARDIA- 2-15 02-15 tablet (90 L ukes XL) 90 MG 00:00: 23:59 mg total) Me dical (OSM) 24 hr 00 :00 by mouth Cent er tablet daily. insulin 2023- No 0U Inject 0-[address] [facility] lispro 2-15 02-15 [facility] (HumaLOG) 00:00: 23:59 subcutaneo M edical 100 unit/mL 00 :00 usly 3 Center injection (three) times daily before meals. acetaminoph 2023- No 650mg Take [address] [facility] [address] [facility] en 2-15 02-10 [facility] (TYLENOL) 00:00: 23:59 (650 mg Medi meghana 325 MG 00 :00 total) by Center tablet mouth every 6 (six) hours as needed for up to 360 days. acetaminoph 2023- No 650mg Take [address] [facility] [address] [facility] en 2-15 02-10 [facility] (TYLENOL) 00:00: 23:59 (650 mg Medi meghana 325 MG 00 :00 total) by Center tablet mouth every 6 (six) hours as needed for up to 360 days. acetaminoph 2023- No 650mg Take [address] [facility] [address] [facility] en 2-15 02-10 [facility] (TYLENOL) 00:00: 23:59 (650 mg Medi meghana 325 MG 00 :00 total) by Center tablet mouth every 6 (six) hours as needed for up to 360 days. acetaminoph 2023- No 650mg Take [address] [facility] [address] [facility] en 2-15 02-10 [facility] (TYLENOL) 00:00: 23:59 (650 mg Medi meghana 325 MG 00 :00 total) by Center tablet mouth every 6 (six) hours as needed for up to 360 days. acetaminoph 2023- No 650mg Take [address] [facility] [address] [facility] en 2-15 02-10 [facility] (TYLENOL) 00:00: 23:59 (650 mg Medi meghana 325 MG 00 :00 total) by Center tablet mouth every 6 (six) hours as needed for up to 360 days. insulin 2022- No 20U QD Inject [address] [facility] glargine 2-15 02-16 [facility] (LANTUS, 00:00: 00:00 subcutaneo Me dical SEMGLEE) 00 :00 usly every Cente r 100 unit/mL morning injection Use as directed . losartan 2022- No 75mg QD Take 1.[address] [facility] (COZAAR) 50 2-15 02-16 tablets Luke [facility] MG tablet 00:00: 00:00 (75 mg Medic al 00 :00 total) by Center mouth daily. insulin 2022- No 6U [facility]ject 6 [facility] lispro 2-15 02-[facility] (HumaLOG) 00:00: 00:00 subcutaneo M edical 100 unit/mL 00 :00 usly 3 Center injection (three) times daily before meals. insulin 2022- No 20U QD Inject [address] [facility] glargine 2-15 02-16 [facility] (LANTUS, 00:00: 00:00 subcutaneo Me dical SEMGLEE) 00 :00 usly every Cente r 100 unit/mL morning injection Use as directed . losartan 2022- No 75mg QD Take 1.[address] [facility] (COZAAR) 50 2-15 02-16 tablets [facility] MG tablet 00:00: 00:00 (75 mg Medic al 00 :00 total) by Center mouth daily. insulin 2022-2022- No 6U Inject 6 [facility] lispro 2-15 02-16 [facility] (HumaLOG) 00:00: 00:00 subcutaneo M edical 100 unit/mL 00 :00 usly 3 Center injection (three) times daily before meals. insulin 2022- No 20U QD Inject [address] [facility] glargine 2-15 02-16 [facility] (LANTUS, 00:00: 00:00 subcutaneo Me dical SEMGLEE) 00 :00 usly every Cente r 100 unit/mL morning injection Use as directed . losartan 2022- No 75mg QD Take 1.[address] [facility] (COZAAR) 50 2-15 02-16 tablets [facility] MG tablet 00:00: 00:00 (75 mg Medic al 00 :00 total) by Center mouth daily. insulin 2022- No 6U Inject 6 [facility] lispro 2-15 02-16 [facility] (HumaLOG) 00:00: 00:00 subcutaneo M edical 100 unit/mL 00 :00 usly 3 Center injection (three) times daily before meals. insulin 2022- No 20U QD Inject [address] [facility] glargine 2-15 02-16 [facility] (LANTUS, 00:00: 00:00 subcutaneo Me dical SEMGLEE) 00 :00 usly every Cente r 100 unit/mL morning injection Use as directed . losartan 2022- No 75mg QD Take 1.[address] [facility] (COZAAR) 50 2-15 02-16 tablets Luke [facility] MG tablet 00:00: 00:00 (75 mg Medic al 00 :00 total) by Center mouth daily. insulin 2022- No 6U Inject 6 [facility] lispro 2-15 02-[facility] (HumaLOG) 00:00: 00:00 subcutaneo M edical 100 unit/mL 00 :00 usly 3 Center injection (three) times daily before meals. insulin 2022- No 20U QD Inject [address] [facility] glargine 2-15 02-16 [facility] (LANTUS, 00:00: 00:00 subcutaneo Me dical SEMGLEE) 00 :00 usly every Cente r 100 unit/mL morning injection Use as directed . losartan 2022- No 75mg QD Take 1.[address] [facility] (COZAAR) 50 2-15 02-16 tablets Luke s MG tablet 00:00: 00:00 (75 mg Medic al 00 :00 total) by Center mouth daily. insulin 2022- No 6U Inject 6 [facility] lispro 2-15 02-[facility] (HumaLOG) 00:00: 00:00 subcutaneo M edical 100 unit/mL 00 :00 usly 3 Center injection (three) times daily before meals. benzonatate 2022- No cough 100mg Take [address] [facility] (TESSALON) 2-08 02-08 mg by [facility] 100 MG 04:38: 00:00 mouth 3 Medical capsule 19 :00 (three) Center times daily as needed for Cough. benzonatate 2022- No cough 100mg Take [address] [facility] (TESSALON) 2-08 02-08 mg by [facility] 100 MG 04:38: 00:00 mouth 3 Medical capsule 19 :00 (three) Center times daily as needed for Cough. benzonatate 2022- No cough 100mg Take [address] [facility] (TESSALON) 2-08 02-08 mg by [facility] 100 MG 04:38: 00:00 mouth 3 Medical capsule 19 :00 (three) Center times daily as needed for Cough. benzonatate 2022- No cough 100mg Take [address] [facility] (TESSALON) 2-08 02-08 mg by [facility] 100 MG 04:38: 00:00 mouth 3 Medical capsule 19 :00 (three) Center times daily as needed for Cough. benzonatate 2022- No cough 100mg Take [address] [facility] (TESSALON) 2-08 02-08 mg by [facility] 100 MG 04:38: 00:00 mouth 3 Medical capsule 19 :00 (three) Center times daily as needed for Cough. benzonatate Yes cough 100mg Take [address] [facility] (TESSALON) 1-05 mg by [facility] 100 MG 17:51: mouth 3 Medical capsule 58 (three) Center times daily as needed for Cough. semaglutide 0 Yes .25mg Q7D Inject [facility] (OZEMPIC) 1-05 0.25 [facility] 0.25 mg or 17:51: subcutaneo M edical 0.5 mg (2 58 usly once Cente r mg/1.5 mL) a week. subcutaneou s pen benzonatate Yes cough 100mg Take [address] [facility] (TESSALON) 1-05 mg by [facility] 100 MG 17:51: mouth 3 Medical capsule 58 (three) Center times daily as needed for Cough. semaglutide 2023-0 Yes .25mg Q7D Inject [facility] (OZEMPIC) 1-05 0.25 [facility] 0.25 mg or 17:51: subcutaneo M edical 0.5 mg (2 58 usly once Cente r mg/1.5 mL) a week. subcutaneou s pen benzonatate 2023-0 Yes cough 100mg Take [address] [facility] (TESSALON) 1-05 mg by [facility] 100 MG 17:51: mouth 3 Medical capsule 58 (three) Center times daily as needed for Cough. semaglutide 2023-0 Yes .25mg Q7D Inject [facility] (OZEMPIC) 1-05 0.25 [facility] 0.25 mg or 17:51: subcutaneo M edical 0.5 mg (2 58 usly once Cente r mg/1.5 mL) a week. subcutaneou s pen famotidine 2023-0 Yes 20mg QD Take 1 [facility] (PEPCID) 20 1-05 tablet (20 Nuria kes MG tablet 00:00: mg total) Med ical 00 by mouth Center daily. famotidine 2023-0 Yes 20mg QD Take [facility] (PEPCID) 20 1-05 tablet (20 Nuria kes MG tablet 00:00: mg total) Med ical 00 by mouth Center daily. famotidine 2023-0 Yes 20mg QD Take 1 [facility] (PEPCID) 20 1-05 tablet (20 Nuria kes MG tablet 00:00: mg total) Med ical 00 by mouth Center daily. famotidine 2023-0 Yes 20mg QD Take 1 [facility] (PEPCID) 20 1-05 tablet (20 Nuria kes MG tablet 00:00: mg total) Med ical 00 by mouth Center daily. famotidine 2023-0 Yes 20mg QD Take 1 [facility] (PEPCID) 20 1-05 tablet (20 Nuria kes MG tablet 00:00: mg total) Med ical 00 by mouth Center daily. famotidine 2023-0 Yes 20mg QD Take 1 [facility] (PEPCID) 20 1-05 tablet (20 Nuria kes MG tablet 00:00: mg total) Med ical 00 by mouth Center daily. famotidine 0 Yes 20mg QD Take 1 [facility] (PEPCID) 20 1-05 tablet (20 Nuria kes MG tablet 00:00: mg total) Med ical 00 by mouth Center daily. famotidine 2022-0 Yes 20mg QD Take 1 [facility] (PEPCID) 20 1-05 tablet (20 Nuria kes MG tablet 00:00: mg total) Med ical 00 by mouth Center daily. atorvastati 2023- No 40mg QD Take [address] [facility] (LIPITOR) 09-25-05 tablet (40 L ukes 40 MG 00:00: 23:59 mg total) Medica l tablet 00 :00 by mouth Center daily. atorvastati 2023- No 40mg QD Take [address] [facility] (LIPITOR) 09-2505 tablet (40 L ukes 40 MG 00:00: 23:59 mg total) Medica l tablet 00 :00 by mouth Center daily. atorvastati 2023- No 40mg QD Take [address] [facility] (LIPITOR) 09-2505 tablet (40 L ukes 40 MG 00:00: 23:59 mg total) Medica l tablet 00 :00 by mouth Center daily. atorvastati 2023- No 40mg QD Take [address] [facility] (LIPITOR) 09-25-05 tablet (40 L ukes 40 MG 00:00: 23:59 mg total) Medica l tablet 00 :00 by mouth Center daily. atorvastati 2023- No 40mg QD Take [address] [facility] (LIPITOR) 09-25-05 tablet (40 L ukes 40 MG 00:00: 23:59 mg total) Medica l tablet 00 :00 by mouth Center daily. NIFEdipine 2023- No 60mg QD Take [address] [facility] (PROCARDIA- 09-25-05 tablet (60 L ukes XL) 60 MG 00:00: 23:59 mg total) Me dical (OSM) 24 hr 00 :00 by mouth Cent er tablet daily. atorvastati 2023- No 40mg QD Take [address] [facility] (LIPITOR) 05 -05 tablet (40 L ukes 40 MG 00:00: 23:59 mg total) Medica l tablet 00 :00 by mouth Center daily. NIFEdipine 2023- No 60mg QD Take [address] [facility] (PROCARDIA- -05 01-05 tablet (60 L ukes XL) 60 MG 00:00: 23:59 mg total) Me dical (OSM) 24 hr 00 :00 by mouth Cent er tablet daily. atorvastati 2023- No 40mg QD Take [address] [facility] (LIPITOR) 05 -05 tablet (40 L ukes 40 MG 00:00: 23:59 mg total) Medica l tablet 00 :00 by mouth Center daily. NIFEdipine No 60mg QD Take [address] [facility] (PROCARDIA- -05 -05 tablet (60 L ukes XL) 60 MG 00:00: 23:59 mg total) Me dical (OSM) 24 hr 00 :00 by mouth Cent er tablet daily. atorvastati No 40mg QD Take [address] [facility] (LIPITOR) 09-25-05 tablet (40 L ukes 40 MG 00:00: 23:59 mg total) Medica l tablet 00 :00 by mouth Center daily. NIFEdipine No 60mg QD Take [address] [facility] (PROCARDIA- -05 02-15 tablet (60 L ukes XL) 60 MG 00:00: 00:00 mg total) Me dical (OSM) 24 hr 00 :00 by mouth Cent er tablet daily. NIFEdipine 2022- No 60mg QD Take [address] [facility] (PROCARDIA- 05 02-15 tablet (60 L ukes XL) 60 MG 00:00: 00:00 mg total) Me dical (OSM) 24 hr 00 :00 by mouth Cent er tablet daily. NIFEdipine No 60mg QD Take [address] [facility] (PROCARDIA- 1-05 02-15 tablet (60 L ukes XL) 60 MG 00:00: 00:00 mg total) Me dical (OSM) 24 hr 00 :00 by mouth Cent er tablet daily. NIFEdipine 2023-0 2023- No 60mg QD Take [address] [facility] (PROCARDIA- 05 02-15 tablet (60 L ukes XL) 60 MG 00:00: 00:00 mg total) Me dical (OSM) 24 hr 00 :00 by mouth Cent er tablet daily. NIFEdipine 2022- No 60mg QD Take [address] [facility] (PROCARDIA- 05 02-15 tablet (60 L ukes XL) 60 MG 00:00: 00:00 mg total) Me dical (OSM) 24 hr 00 :00 by mouth Cent er tablet daily. cloNIDine 2022- No hypertensio .2mg [id number] Take 0.[address] [facility] HCL 09-24- n [id number] mg by Elizabeth (CATAPRES) 10:36: 00:00 3D mouth 3 Med ical 0.2 MG 54 :00 (three) Center tablet times daily. losartan-hy 2022- No 1{tbl} QD Take [address] droCHLOROth 09-24 tablet by Nuria montoya iarich 10:36: 00:00 mouth Medical (HYZAAR) 54 :00 [...] subcutaneo Juan F s [facility]LANTUS, 10:36[facility] unit/mL Use as injection directed . cloNIDine 2022- No hypertensio .2mg [id number] Take 0.[address] [facility] HCL 09-24- n [id number] mg by Elizabeth (CATAPRES) 10:36: 00:00 3D mouth 3 Med ical 0.2 MG 54 :00 (three) Center tablet times daily. losartan-hy 2022- No 1{tbl} QD Take [address] droCHLOROth 09-24 tablet by Nuria montoya iamicheale 10:36: 00:00 mouth Medical (HYZAAR) 54 :00 daily. Center 100-25 mg per tablet sertraline 2022-2022- No 100mg QD Take [address] [facility] (ZOLOFT) 09-24-04 [facility] 100 MG 10:36: 00:00 mouth Medical tablet 54 :00 daily. Center glipiZIDE 2022-2022- No 5mg Take [address] [facility] (GLUCOTROL) 09-24 by mouth 2 L ukes 5 MG tablet 10:36: 00:00 (two) Medi meghana 54 :00 times Center daily before meals. insulin 2022- No QD Inject [facility] glargine 09-24 subcutaneo Juan F s (LANTUS, 10:36: 00:00 [facility]) 54 :00 nightly Center 100 unit/mL Use as injection directed . cloNIDine 2022- No hypertensio .2mg [id number] Take 0.[address] [facility] HCL 09-24 n [id number] mg by Lulindsay (CATAPRES) 10:36: 00:00 3D mouth 3 Med ical 0.2 MG 54 :00 (three) Center tablet times daily. losartan-hy 2022- No 1{tbl} QD Take [address] droCHLOROth 09-24 tablet by Nuria michele 10:36: 00:00 mouth Medical (HYZAAR) 54 :00 daily. Center 100-25 mg per tablet sertraline 2022- No 100mg QD Take [address] (ZOLOFT) 09-24-04 [facility] 100 MG 10:36: 00:00 mouth Medical tablet 54 :00 daily. Center glipiZIDE 2022-2022- No 5mg Take [address] [facility] (GLUCOTROL) 09-24 by mouth 2 L ukes 5 MG tablet 10:36: 00:00 (two) Medi meghana 54 :00 times Center daily before meals. insulin 2022- No QD Inject [facility] glargine 09-24 subcutaneo Luke s (LANTUS, 10:36: [facility] 100 unit/mL Use as injection directed . cloNIDine 2022- No hypertensio .2mg [id number] Take 0.[address] [facility] HCL 09-24 n [id number] mg by [facility] (CATAPRES) 10:36: 00:00 3D mouth 3 Med ical 0.2 MG 54 :00 (three) Center tablet times daily. losartan-hy 2022-2022- No 1{tbl} QD Take [address] droCHLOROth 09-24 tablet by Nuria montoya iazide 10:36: 00:00 mouth Medical (HYZAAR) 54 :00 daily. Center 100-25 mg per tablet sertraline 2022- No 100mg QD Take [address] (ZOLOFT) 09-24 [facility] by [facility] 100 MG 10:36: 00:00 mouth Medical tablet 54 :00 daily. Center glipiZIDE 2022- No 5mg Take [address] [facility] (GLUCOTROL) 09-24 by mouth 2 L ukes 5 MG tablet 10:36: 00:00 (two) [facility] 54 :00 times Center daily before meals. insulin 2022- No QD Inject [facility] glargine 09-24 subcutaneo Luke s (LANTUS, 10:36: [facility] 100 unit/mL Use as injection directed . cloNIDine 2022- No hypertensio .2mg [id number] Take 0.[address] [facility] HCL 09-24 n [id number] mg by [facility] (CATAPRES) 10:36: 00:00 3D mouth 3 Med ical 0.2 MG 54 :00 (three) Center tablet times daily. losartan-hy 2022-2022- No 1{tbl} QD Take [address] droCHLOROth 09-24 tablet by Nuria montoya iazide 10:36: 00:00 mouth Medical (HYZAAR) 54 :00 daily. Center 100-25 mg per tablet sertraline 2022- No 100mg QD Take [address] (ZOLOFT) -12 20-04 [facility] by [facility] 100 MG 10:36: 00:00 [facility] tablet 54 :00 daily. Center glipiZIDE 2022- No 5mg Take [address] [facility] [address] [facility] (GLUCOTROL) 09-24 by mouth 2 L ukes 5 MG tablet 10:36: 00:00 (two) [facility] 54 :00 times Center daily before meals. insulin 2022- No QD Inject [facility] glargine 09-[facility] ([place], 10:36: 00:00 [facility]) 54 :00 nightly Center 100 unit/mL Use as injection directed . cloNIDine 2022- No hypertensio .2mg [id number] Take 0.[address] [facility] HCL 09-24 n [id number] mg by [facility] (CATAPRES) 10:36: 00:00 3D [...] 09-[facility] ([place]ANTUS, 10:36: 00:00 [facility] SEMGLEE) 54 :00 nightly Center 100 unit/mL Use as injection directed . cloNIDine 2022- No hypertensio .2mg [id number] Take 0.[address] [facility] HCL 09-24 n [id number] mg by [facility] (CATAPRES) 10:36: 00:00 3D [...] [facility] (ZOLOFT) 09-24 mg [facility] 100 MG 10:36: 00:00 mouth Medical tablet 54 :00 daily. Center glipiZIDE 2022- No 5mg Take [address] [facility] [address] [facility] (GLUCOTROL) 09-24 by mouth 2 L ukes 5 MG tablet 10:36: 00:00 (two) [facility] 54 :00 times Center daily before meals. insulin 2022- No QD Inject [facility] glargine 09-[facility] ([place]ANT[place], 10:36: 00:00 [facility] SEMGLEE) 54 :00 nightly Center 100 unit/mL Use as injection directed . cloNIDine 2022- No hypertensio .2mg Q.[id number] Take 0.[address] [facility] HCL 09-24 n [id number] mg by [facility] (CATAPRES) 10:36: 00:00 3D [...] Medical tablet 54 :00 daily. Center glipiZIDE 2022-0 2022- No 5mg Take [address] [facility] (GLUCOTROL) 09-24 by mouth 2 [facility] 5 MG tablet 10:36: 00:00 (two) Medi meghana 54 :00 times Center daily before meals. insulin 2022-0 2022- No QD Inject [facility] glargine 09-24 [facility]o [facility] (LANTUS, 10:36: 00:00 [facility] SEMGLEE) 54 :00 nightly Center 100 unit/mL Use as injection directed . sertraline 3-0 Yes 100mg QD Take [address] [facility] (ZOLOFT) 1-04 tablet [facility] 100 MG 00:00: (100 mg Medical tablet 00 total) by Center mouth daily. sertraline 2023-0 Yes 100mg QD Take [address] [facility] (ZOLOFT) 1-04 tablet [facility] 100 MG 00:00: (100 mg Medical tablet 00 total) by Center mouth daily. sertraline 2023-0 Yes 100mg QD Take [address] [facility] (ZOLOFT) 1-04 tablet [facility] 100 MG 00:00: (100 mg Medical tablet 00 total) by Center mouth daily. sertraline 2023-0 Yes 100mg QD Take [address] [facility] (ZOLOFT) 1-04 tablet [facility] 100 MG 00:00: (100 mg Medical tablet 00 total) by Center mouth daily. sertraline 2023-0 Yes 100mg QD Take [address] [facility] [...] AND THEN STOP IN TOTAL DAYS. sertraline 2023-0 Yes 100mg QD Take [address] [facility] [...] AND THEN STOP IN TOTAL DAYS. sertraline 2023-0 Yes 100mg QD Take [address] [facility] (ZOLOFT) 1-04 tablet [facility] 100 MG 00:00: (100 mg Medical tablet 00 total) by Center mouth daily. carvediloL 2022-2023- No 12.5mg Q.5D Take [address] [facility] [address] [facility] (COREG) 09-24 tablet [facility] 12.5 MG 00:00: 23:59 (12.5 mg Medic al tablet 00 :00 total) by Center mouth 2 (two) times daily. levETIRAcet 2022-0 2023- No 500mg Q.5D Take [address] [facility] [address] [facility] am (KEPPRA) 09-24 tablet [facility] 500 MG 00:00: 23:59 (500 mg Medical tablet 00 :00 total) by Center mouth 2 (two) times daily. losartan 2022-0 2023- No 50mg QD Take [address] [facility] (COZAAR) 50 09-24 tablet (50 [facility] MG tablet 00:00: 23:59 mg total) Me dical 00 :00 by mouth Center daily. carvediloL 2022-0 2023- No 12.5mg Q.5D Take [address] [facility] [address] [facility] (COREG) 09-24 tablet [facility] 12.5 MG 00:00: 23:59 (12.5 mg Medic al tablet 00 :00 total) by Center mouth 2 (two) times daily. levETIRAcet 2022-0 2023- No 500mg Q.5D Take [address] [facility] [address] [facility] am (KEPPRA) 09-24- tablet [facility] 500 MG 00:00: 23:59 (500 mg Medical tablet 00 :00 total) by Center mouth 2 (two) times daily. losartan 2022-0 2023- No 50mg QD Take [address] [facility] (COZAAR) 50 -12 20-04 tablet (50 [facility] MG tablet 00:00: 23:59 mg total) Me dical 00 :00 by mouth Center daily. carvediloL 2022-2023- No 12.5mg Q.5D Take [address] [facility] [address] [facility] (COREG) 09-24- tablet [facility] 12.5 MG 00:00: 23:59 (12.5 mg Medic al tablet 00 :00 total) by Center mouth 2 (two) times daily. levETIRAcet 2022-2023- No 500mg Q.5D Take [address] [facility] [address] [facility] am (KEPPRA) 09-24 tablet [facility] 500 MG 00:00: 23:59 (500 mg Medical tablet 00 :00 total) by Center mouth 2 (two) times daily. losartan 2022-0 2023- No 50mg QD Take [address] [facility] (COZAAR) 50 09-24- tablet (50 [facility] MG tablet 00:00: 23:59 mg total) Me dical 00 :00 by mouth Center daily. levETIRAcet 2022-0 2022- No 500mg Q.5D Take [address] [facility] [address] [facility] am (KEPPRA) 09-24-03 tablet [facility] 500 MG 00:00: 00:00 (500 mg Medical tablet 00 :00 total) by Center mouth 2 (two) times daily. levETIRAcet 2022-0 2022- No 500mg Q.5D Take [address] [facility] [address] [facility] am (KEPPRA) 09-24-03 tablet [facility] 500 MG 00:00: 00:00 (500 mg Medical tablet 00 :00 total) by Center mouth 2 (two) times daily. levETIRAcet 2022-0 2022- No 500mg Q.5D Take [address] [facility] [address] [facility] am (KEPPRA) 09-24-03 tablet [facility] 500 MG 00:00: 00:00 (500 mg Medical tablet 00 :00 total) by Center mouth 2 (two) times daily. levETIRAcet 2022-0 3- No 500mg Q.5D Take [address] [facility] [address] [facility] am (KEPPRA) 09-24-03 tablet [facility] 500 MG 00:00: 00:00 (500 mg Medical tablet 00 :00 total) by Center mouth 2 (two) times daily. levETIRAcet 2022-0 2023- No 500mg Q.5D Take [address] [facility] [address] [facility] am (KEPPRA) 09-24-03 tablet [facility] 500 MG 00:00: 00:00 (500 mg Medical tablet 00 :00 total) by Center mouth 2 (two) times daily. carvediloL 2022-0 2023- No 12.5mg Q.5D Take [address] [facility] [address] [facility] (COREG) 09-24-16 tablet [facility] 12.5 MG 00:00: 00:00 (12.5 mg Medic al tablet 00 :00 total) by Center mouth 2 (two) times daily. carvediloL 2022-0 3- No 12.5mg Q.5D Take [address] [facility] [address] [facility] (COREG) 09-2416 tablet [facility] 12.5 MG 00:00: 00:00 (12.5 mg Medic al tablet 00 :00 total) by Center mouth 2 (two) times daily. carvediloL 2022-0 3- No 12.5mg Q.5D Take [address] [facility] [address] [facility] (COREG) 09-24-16 tablet [facility] 12.5 MG 00:00: 00:00 (12.5 mg Medic al tablet 00 :00 total) by Center mouth 2 (two) times daily. carvediloL 2022-0 2023- No 12.5mg Q.5D Take [address] [facility] [address] [facility] (COREG) 09-24-16 tablet [facility] 12.5 MG 00:00: 00:00 (12.5 mg Medic al tablet 00 :00 total) by Center mouth 2 (two) times daily. carvediloL 3-0 2023- No 12.5mg Q.5D Take [address] [facility] (COREG) 09-24-16 tablet [facility] 12.5 MG 00:00: 00:00 (12.5 mg Medic al tablet 00 :00 total) by Center mouth 2 (two) times daily. losartan 3-0 2023- No 50mg QD Take [address] [facility] (COZAAR) 50 1-04 02-15 tablet (50 [facility] MG tablet 00:00: 00:00 mg total) Me dical 00 :00 by mouth Center daily. losartan 2022- No 50mg QD Take [address] [facility] (COZAAR) 50 1-04 02-15 tablet (50 [facility] MG tablet 00:00: 00:00 mg total) Me dical 00 :00 by mouth Center daily. losartan 2022- No 50mg QD Take [address] [facility] (COZAAR) 50 1-04 02-15 tablet (50 [facility] MG tablet 00:00: 00:00 mg total) Me dical 00 :00 by mouth Center daily. losartan 2022- No 50mg QD Take [address] [facility] (COZAAR) 50 1-04 02-15 tablet (50 [facility] MG tablet 00:00: 00:00 mg total) Me dical 00 :00 by mouth Center daily. losartan 2022- No 50mg QD Take [address] [facility] (COZAAR) 50 1-04 02-15 tablet (50 [facility] MG tablet 00:00: 00:00 mg total) Me dical 00 :00 by mouth Center daily. dexAMETHaso 2022- No 4MG TID [facility] ne 09-24 FOR 2 DAYS [facility] (DECADRON) 00:00: 00:00 AND THEN Me dical 4 MG tablet 00 :00 4MG BID Cente r FOR 2 DAYS AND THEN 4MG DAILY FOR 2 DAYS AND THEN STOP IN TOTAL DAYS. dexAMETHaso 0 2022- No 4MG TID [facility] ne 09-24 FOR 2 DAYS [facility] (DECADRON) 00:00: 00:00 AND THEN Me dical 4 MG tablet 00 :00 4MG BID Cente r FOR 2 DAYS AND THEN 4MG DAILY FOR 2 DAYS AND THEN STOP IN TOTAL DAYS. dexAMETHaso 0 2022- No 4MG TID [facility] ne 09-24 FOR 2 DAYS [facility] (DECADRON) 00:00: 00:00 AND THEN Me dical 4 MG tablet 00 :00 4MG BID Cente r FOR 2 DAYS AND THEN 4MG DAILY FOR 2 DAYS AND THEN STOP IN TOTAL DAYS. dexAMETHaso 2022- No 4MG TID [facility] ne 09-24-08 FOR 2 DAYS [facility] (DECADRON) 00:00: 00:00 AND THEN Me dical 4 MG tablet 00 :00 4MG BID Cente r FOR 2 DAYS AND THEN 4MG DAILY FOR 2 DAYS AND THEN STOP IN TOTAL DAYS. dexAMETHaso 2022- No 4MG TID [facility] ne 09-24-08 FOR 2 DAYS [facility] (DECADRON) 00:00: 00:00 AND THEN Me dical 4 MG tablet 00 :00 4MG BID Cente r FOR 2 DAYS AND THEN 4MG DAILY FOR 2 DAYS AND THEN STOP IN TOTAL DAYS. cloNIDine 2022- No hypertensio .2mg Q.5D Take [address] [facility] HCL - 02-03 n tablet [facility] (CATAPRES) 00:00: 23:59 [...] unit/mL days. (3 mL) InPn cloNIDine 2022- No hypertensio .2mg Q.5D Take [address] [facility] HCL - 02-03 n tablet [facility] (CATAPRES) 00:00: 23:59 [...] unit/mL days. (3 mL) InPn cloNIDine 2022- No hypertensio .2mg Q.5D Take [address] [facility] HCL 1-04 02-03 n tablet [facility] (CATAPRES) 00:00: 23:59 (0.2 mg Med ical 0.2 MG 00 :00 total) by Center tablet mouth 2 (two) times daily for 30 days. insulin No 14U QD Inject [address] [facility] glargine 1-04 02-03 Units [facility] (Lantus 00:00: 23:59 subcutaneo Med ical Solostar 00 :00 usly Center U-100 nightly Insulin) for 30 100 unit/mL days. (3 mL) InPn cloNIDine No hypertensio .2mg Q.5D Take [address] [facility] HCL 1-04 02-03 n tablet [facility] (CATAPRES) 00:00: 23:59 (0.2 mg Med ical 0.2 MG 00 :00 total) by Center tablet mouth 2 (two) times daily for 30 days. insulin 14U QD Inject [address] [facility] glargine 1-04 02-03 Units [facility] (Lantus 00:00: 23:59 subcutaneo Med ical Solostar 00 :00 usly Center U-100 nightly Insulin) for 30 100 unit/mL days. (3 mL) InPn cloNIDine No hypertensio .2mg Q.5D Take [address] [facility] HCL 1-04 02-03 n tablet [facility] (CATAPRES) 00:00: 23:59 (0.2 mg Med ical 0.2 MG 00 :00 total) by Center tablet mouth 2 (two) times daily for 30 days. insulin 14U QD Inject [address] [facility] glargine 1-04 02-03 Units [facility] (Lantus 00:00: 23:59 subcutaneo Med ical Solostar 00 :00 usly Center U-100 nightly Insulin) for 30 100 unit/mL days. (3 mL) InPn cloNIDine No hypertensio .2mg Q.5D Take 1 [facility] [...] unit/mL days. (3 mL) InPn cloNIDine 2022- No hypertensio .2mg Q.5D Take [address] [facility] HCL 1- 02-03 n tablet [facility] (CATAPRES) 00:00: 23:59 [...] unit/mL days. (3 mL) InPn cloNIDine 2022- No hypertensio .2mg Q.5D Take [address] [facility] HCL - 02-03 n tablet [facility] (CATAPRES) 00:00: 23:59 [...] 100 unit/mL days. (3 mL) InPn phenytoin 2022-2022- No 90mg [id number] Take [address] [facility] (DILANTIN) 09-24- [id number] capsules [facility] 30 MG ER 00:00: 23:59 3D (90 mg Medica l capsule 00 :00 total) by Center mouth 3 (three) times daily for 2 days. phenytoin 2022-2022- No 90mg Q.[id number] Take [address] [facility] (DILANTIN) 09-24 [id number] capsules [facility] 30 MG ER 00:00: 23:59 3D (90 mg Medica l capsule 00 :00 total) by Center mouth 3 (three) times daily for 2 days. phenytoin 2023-0 2023- No 90mg Q.[id number] Take [address] [facility] (DILANTIN) 1-09-26 [id number] capsules [facility] 30 MG ER 00:00: 23:59 3D (90 mg Medica l capsule 00 :00 total) by Center mouth 3 (three) times daily for 2 days. phenytoin 2023-0 2023- No 90mg Q.[id number] Take [address] [facility] (DILANTIN) 09-24 [id number] capsules [facility] 30 MG ER 00:00: 23:59 3D (90 mg Medica l capsule 00 :00 total) by Center mouth 3 (three) times daily for 2 days. phenytoin 2023-0 2023- No 90mg Q.[id number] Take [address] [facility] (DILANTIN) 09-24 [id number] capsules [facility] 30 MG ER 00:00: 23:59 3D (90 mg Medica l capsule 00 :00 total) by Center mouth 3 (three) times daily for 2 days. phenytoin 2023-0 2023- No 90mg Q.[id number] Take [address] [facility] (DILANTIN) 09-24 [id number] capsules [facility] 30 MG ER 00:00: 23:59 3D (90 mg Medica l capsule 00 :00 total) by Center mouth 3 (three) times daily for 2 days. phenytoin 2023-0 2023- No 90mg Q.[id number] Take [address] [facility] (DILANTIN) 09-24 [id number] capsules [facility] 30 MG ER 00:00: 23:59 3D (90 mg Medica l capsule 00 :00 total) by Center mouth 3 (three) times daily for 2 days. phenytoin 2023-0 2023- No 90mg Q.[id number] Take [address] [facility] (DILANTIN) 09-24 [id number] capsules [facility] 30 MG ER 00:00: 23:59 3D (90 mg Medica l capsule 00 :00 total) by Center mouth 3 (three) times daily for 2 days. TAKE 1 No TABLET BY -24 MOUTH ONCE 00:00: DAILY 00 TAKE 1 2021- No TABLET BY -24 MOUTH ONCE 00:00: DAILY 00 TAKE 1 2021- No TABLET BY 9-24 MOUTH ONCE 00:00: DAILY 00 water for 2021- No PRN, [facility] irrigation 05-14 Starting ity of irrigation 15:33: 16:16 on [place] solution 00 :28 05/14/22 at Medic [...] by mouth ity of ORAL 14:23: daily. [place] 14 Medical Branch cloniDINE Yes .2mg Take 0.2 [...] 8-24 by mouth ity of 14:23: daily. [place] [address] Medical Branch DULoxetine Yes 30mg Take 30 mg U nivers 30 mg 8-24 by mouth ity of capsule 14:23: daily. [place] [address] Medical Branch insulin Yes 50U inject 50 [...] mg tablet 14:23: (two) [place] 14 times [facility] daily with Branch meals. lovastatin Yes 20mg Take 20 mg U nivers (MEVACOR) 8-24 by mouth ity of 20 mg 14:23: at [place] tablet 14 bedtime. Medical Branch DINA Yes 81mg Take 81 mg Univer s ASPIRIN 8-24 by mouth ity of ORAL 14:23: daily. [place] [address] Medical Branch cloniDINE Yes .2mg Take 0.2 [...] 8-24 by mouth ity of 14:23: daily. [place] [address] Medical Branch DULoxetine Yes 30mg Take 30 mg U nivers 30 mg 8-24 by mouth ity of capsule 14:23: daily. [place] [address] Medical Branch insulin Yes 50U inject 50 [...] by mouth ity of ORAL 14:23: daily. [place] [address] Medical Branch cloniDINE Yes .2mg Take 0.2 [...] 14 daily. Medical per tablet Branch doxycycline 0 Yes 100mg Take 100 U nivers 100 mg EC 8-24 mg by ity of tablet 14:23: mouth 2 [place] 14 (two) Medical times Branch daily. vitamin 0 Yes 500ug Take 500 Unive rs B-12 500 8-24 mcg by ity of mcg tablet 14:23: mouth [place] 14 daily. Medical Branch glipiZIDE 5 Yes 5mg Take 5 mg U nivers mg tablet 8-24 by mouth ity of 14:23: daily. [place] [address] Medical Branch DULoxetine Yes 30mg Take 30 mg U nivers 30 mg 8-24 by mouth ity of capsule 14:23: daily. [place] [address] Medical Branch insulin Yes 50U inject 50 Unive rs glargine,hu 8-24 Units ity of m.rec.anlog 14:23: [place] 14 skin at Medic al bedtime. Branch semaglutide Yes inject Univ ers (OZEMPIC 8-24 [place]) 14:23: skin [place] 14 weekly. Medical Branch TAKE 1 2021-0 No 10 TABLET BY [...] TAKE 1 2022-0 No 15 TABLET BY 04-29 MOUTH ONCE 00:00: DAILY WITH 00 FOOD TAKE 1 2022-0 No 30 CAPSULE BY 04-23 MOUTH ONCE 00:00: DAILY 00 TAKE 1 2022-0 No 30 CAPSULE BY 04-23 MOUTH ONCE 00:00: DAILY 00 TAKE 1 2022-0 No 30 CAPSULE BY 04-23 MOUTH ONCE 00:00: DAILY 00 TAKE 1 2022-0 No 30 CAPSULE BY 04-23 MOUTH ONCE 00:00: DAILY 00 &lt 2022-0 No 15 04-22 00:00: 00 Dose 2022-0 No Unknown 04-22 00:00: 00 TAKE 1 2022-0 No 2 TABLET BY 04-22 MOUTH TWICE 00:00: DAILY 00 &lt 2022-0 No 20 04-22 00:00: 00 &lt 2022-0 No 8 00:00: 00 &lt 2022-0 No 8 00:00: 00 &lt 2022-0 No 15 04-22 00:00: 00 &lt 2022-0 No 15 04-22 00:00: 00 Dose 2022-0 No Unknown 04-22 00:00: 00 TAKE 1 2-0 No 2 TABLET BY 04-22 MOUTH TWICE 00:00: DAILY 00 &lt 2022-0 No 20 04-22 00:00: 00 &lt 2022-0 No 8 00:00: 00 &lt 2022-0 No 8 00:00: 00 &lt 2022-0 No 15 04-22 00:00: 00 &lt 2022-0 No 15 04-22 00:00: 00 Dose 2022-0 No Unknown 04-22 00:00: 00 TAKE 1 2022-0 No 2 TABLET BY 04-22 MOUTH TWICE 00:00: DAILY 00 &lt 2022-0 No 20 04-22 00:00: 00 &lt 2022-0 No 04-22 00:00: 00 &lt 2022-0 No 04-22 00:00: 00 &lt 2022-0 No 15 04-22 00:00: 00 &lt 2022-0 No 15 04-22 00:00: 00 Dose 2022-0 No Unknown 04-22 00:00: 00 TAKE 1 2022-0 No 2 TABLET BY 04-22 MOUTH TWICE 00:00: DAILY 00 &lt 2022-0 No 20 8- 00:00: 00 &lt 2022-0 No 8- 00:00: 00 &lt 2022-0 No 8- 00:00: 00 &lt 2022-0 No 15 8- 00:00: 00 &lt 2022-0 No 2 04-16 [...] WITH 00 FOOD &lt 2022-0 No 20 7 00:00: 00 TAKE 1 2022-0 No TABLET BY 7-20 MOUTH TWICE 00:00: DAILY 00 TAKE 1 2022-0 No 15 TABLET BY 7-20 MOUTH ONCE 00:00: DAILY WITH 00 FOOD &lt 2022-0 No 20 7 00:00: 00 [...] No 6-27 00:00: 00 &lt 2022-0 No 6- 00:00: 00 &lt 2022-0 No 6 00:00: 00 &lt 2022-0 No 6 00:00: 00 &lt 2022-0 No 6 00:00: 00 &lt 2022-0 No 6 00:00: 00 &lt 2022-0 No 6 00:00: 00 TAKE 1 2-0 No CAPSULE BY 6-24 MOUTH ONCE 00:00: DAILY 00 &lt 2022-0 No 6 00:00: 00 Dose 2022-0 No Unknown 03-14 00:00: 00 &lt 2022-0 No 6 00:00: 00 TAKE 1 2-0 No CAPSULE BY 6-24 MOUTH ONCE 00:00: DAILY 00 &lt 2022-0 No 03-14 00:00: 00 Dose 2022-0 No Unknown 03-14 00:00: 00 &lt 2022-0 No 6 00:00: 00 TAKE 1 2-0 No CAPSULE BY 6-24 MOUTH ONCE 00:00: DAILY 00 &lt 2022-0 No 6 00:00: 00 Dose 2022-0 No Unknown 6 00:00: 00 &lt 2022-0 No 6 00:00: 00 TAKE 1 2-0 No CAPSULE BY 6-24 MOUTH ONCE 00:00: DAILY 00 &lt 2022-0 No 6 00:00: 00 Dose 2022-0 No Unknown 03-14 00:00: 00 &lt 2022-0 No 6 00:00: 00 doxycycline 2021-0 Yes 100mg Take [...] 5-16 by mouth ity of 01:04: daily. [place] [address] Medical Branch DULoxetine 2021-0 Yes 30mg Take 30 mg U nivers 30 mg 5-16 by mouth ity of capsule 01:04: daily. [place] 03 Medical Branch insulin 2021-0 Yes 50U inject 50 Unive rs glargine,hu 5-16 Units ity of m.rec.anlog 01:04: [place] 03 skin at Medic al bedtime. Branch semaglutide Yes inject Univ ers (OZEMPIC 5-16 [place]) 01:04: skin [place] 03 weekly. Medical Branch doxycycline Yes 100mg Take 100 U nivers 100 mg EC 5-16 mg by ity of tablet 01:04: mouth 2 [place] 03 (two) Medical times Branch daily. vitamin Yes 500ug Take 500 Unive rs B-12 (B-12 5-16 mcg by ity of DOTS) 500 01:04: mouth [place] mcg tablet 03 daily. Medical Branch glipiZIDE 5 Yes 5mg Take 5 mg U nivers mg tablet 5-16 by mouth ity of 01:04: daily. [place] [facility] Branch DULoxetine Yes 30mg Take 30 mg U nivers 30 mg 5-16 by mouth ity of capsule 01:04: daily. [place] Medical Branch insulin Yes 50U inject 50 Unive rs glargine,hu 5-16 Units ity of m.rec.anlog 01:04: [place] 03 skin at Medic al bedtime. Branch semaglutide Yes inject Univ ers (OZEMPIC 5-16 [place] the [place]) 01:04: skin [place] 03 weekly. Medical Branch metoclopram 2021- No 10mg 10 mg, Uni vers mali HCl 02-01-14 Slow IV ity of (REGLAN) 17:45: 16:36 Push, [place] injection 00 :00 ONCE, 1 Medical 10 mg dose, On Branch 02/01/22 at 1245, BOBBY NaCl 0.9% 2021- No 1000mL at 999 Uni vers (NS) bolus 02-01 05-14 mL/hr, ity of infusion 17:00: 18:00 1,000 mL, Jf as 1,000 mL 00 :00 IV Medical Infusion, Branch ONCE, 1 dose, On 02/01/22 at 1200, BOBBY ondansetron 2022-0 2022- No 4mg 4 mg, Slow [facility] (ZOFRAN 5-14 05-14 IV Push, ity of (PF)) 17:00: 15:55 ONCE, 1 [place] injection 4 00 :00 dose, On Medi meghana mg Sat Branch 02/01/22 at 1200, BOBBY doxycycline 0 Yes 100mg Take 100 U nivers 100 mg EC 5-14 mg by ity of tablet 13:01: mouth 2 [place] 40 (two) Medical times Branch daily. vitamin 2021-0 Yes 500ug Take 500 Unive rs B-12 (B-12 5-14 mcg by ity of DOTS) 500 13:01: mouth [place] mcg tablet 40 daily. Medical Branch glipiZIDE 5 0 Yes 5mg Take 5 mg U nivers mg tablet 5-14 by mouth ity of 13:01: daily. [place] [address] Medical Branch DULoxetine 0 Yes 30mg Take 30 mg U nivers 30 mg 5-14 by mouth ity of capsule 13:01: daily. [place] [address] Medical Branch insulin 0 Yes 50U inject 50 Unive rs glargine,hu 5-14 Units ity of m.rec.anlog 13:01: [place] skin at Medic al bedtime. Branch semaglutide Yes inject Univ ers (OZEMPIC 5-14 [place] the [place]y of [place]) 13:01: skin [place] 40 weekly. Medical Branch loratadine 0 2- No 10mg Take 10 mg [facility] 10 mg -01 02-14 by mouth ity of tablet 10:57: 00:00 daily. [place] 42 :00 Medical Branch cloniDINE 2021-0 Yes [...] 30 (three) Medical times Branch daily. metFORMIN 0 2021- No 1000mg Take 1,000 [facility] (FORTAMET) 5-14 05-14 mg by ity of 1,000 mg 24 10:52: 00:00 mouth 2 [place] hr tablet 08 :00 (two) Medical times Branch daily with meals. meloxicam 0 2021- No 15mg Take 15 mg U nivers 15 mg 5-14 05-14 by mouth ity of tablet 10:51: 00:00 daily. [place] 53 :00 Medical Branch lisinopril- 2021- No 2{tbl} Take 2 U nivers hydrochloro 5-14 05-14 tablets by i ty of thiazide 10:51: 00:00 mouth [place] (PRINZIDE,Z 31 :00 daily. Medica l ESTORETIC) Branch 20-12.5 mg per tablet ondansetron Yes [id number] 4mg Take 1 [facility] 4 mg 5-14 tablet by ity of disintegrat 00:00: mouth [place] ing tablet 00 every 8 Medica l (eight) Branch hours as needed for Nausea and Vomiting (N/V). ondansetron 2021-0 Yes [id number] 4mg Take 1 [facility] 4 mg 5-14 tablet by ity of disintegrat 00:00: mouth [place] ing tablet 00 every 8 Medica l (eight) Branch hours as needed for Nausea and Vomiting (N/V). ondansetron 2021-0 Yes [id number] 4mg Take 1 [facility] 4 mg 5-14 tablet by ity of disintegrat 00:00: mouth [place] ing tablet 00 every 8 Medica l (eight) Branch hours as needed for Nausea and Vomiting (N/V). ondansetron 2021-0 Yes [id number] 4mg Take 1 [facility] 4 mg 5-14 tablet by ity of disintegrat 00:00: mouth [place] ing tablet 00 every 8 Medica l (eight) Branch hours as needed for Nausea and Vomiting (N/V). ondansetron 2021-0 Yes [id number] 4mg Take 1 [facility] 4 mg 5-14 tablet by ity of disintegrat 00:00: mouth [place] ing tablet 00 every 8 Medica l (eight) Branch hours as needed for Nausea and Vomiting (N/V). ondansetron 2021-0 Yes [id number] 4mg Take 1 [facility] 4 mg 5-14 tablet by ity of disintegrat 00:00: mouth [place] ing tablet 00 every 8 Medica l (eight) Branch hours as needed for Nausea and Vomiting (N/V). Dose 2-0 No Unknown 3-24 00:00: 00 Dose 2022-0 No Unknown 3-24 00:00: 00 Dose 2022-0 No Unknown 3-24 00:00: 00 Dose 2-0 No Unknown 3-24 00:00: 00 Dose 2-0 No Unknown 3-24 00:00: 00 Dose 2022-0 No Unknown 3-24 00:00: 00 Dose 2-0 No Unknown 3-24 00:00: 00 Dose 2-0 No Unknown 3-24 00:00: 00 Dose 2-0 No Unknown 3-24 00:00: 00 Dose 2-0 No Unknown 3-24 00:00: 00 Dose 2-0 No Unknown 3-24 00:00: 00 Dose 2-0 No Unknown 3-24 00:00: 00 Dose 2-0 No Unknown 3-24 00:00: 00 Dose 2-0 No Unknown 3-24 00:00: 00 Dose 2-0 No Unknown 3-24 00:00: 00 Dose 2-0 No Unknown 3-24 00:00: 00 Dose 2-0 No Unknown 3-24 00:00: 00 Dose 2-0 No Unknown 3-24 00:00: 00 Dose 2-0 No Unknown 3-24 00:00: 00 Dose 2-0 No Unknown 3-24 00:00: 00 Dose 2-0 No Unknown 3-24 00:00: 00 Dose 2-0 No Unknown 3-24 00:00: 00 Dose 2-0 No Unknown 3-24 00:00: 00 Dose 2-0 No Unknown 3-24 00:00: 00 Dose 2-0 No Unknown 3-24 00:00: 00 Dose 2-0 No Unknown 3-24 00:00: 00 Dose 2-0 No Unknown 3-24 00:00: 00 Dose 2-0 No Unknown 3-24 00:00: 00 Dose 2-0 No Unknown 3-24 00:00: 00 Dose 2022-0 [...] 2-0 No Unknown 3-23 00:00: 00 Dose 2-0 No Unknown 3-23 00:00: 00 Dose 2-0 No Unknown 3-23 00:00: 00 Dose 2-0 No Unknown 3-23 00:00: 00 Dose 2-0 No Unknown 3-23 00:00: 00 Dose 2-0 No Unknown 3-23 00:00: 00 Dose 2-0 No Unknown 3-23 00:00: 00 Dose 2-0 No Unknown 3-23 00:00: 00 Dose 2-0 No Unknown 3-23 00:00: 00 Dose 2-0 No Unknown 3-23 00:00: 00 Dose 2-0 No Unknown 3-23 00:00: 00 Dose 2-0 No Unknown 3-23 00:00: 00 Dose 2-0 No Unknown 3-23 00:00: 00 Lantus 2020-09 No (3 mL) Solostar 2-30 U-100 00:00: Insulin 100 00 unit/mL (3 mL) subcutaneou s pen lovastatin 2020-09 No 1mg 20 mg 2-30 tablet 00:00: 00 glipizide 5 2020-09 No 1mg mg tablet 2-30 00:00: 00 Dose 2020-1 No Unknown 2-30 00:00: 00 duloxetine 2020- No 1mg 30 mg 2-30 capsule,del 00:00: ayed 00 release Lantus 2020- No (3 mL) Solostar 2-30 U-100 00:00: [...] mg 2-30 tablet 00:00: 00 glipizide 5 2020- No 1mg mg tablet 2-30 00:00: 00 carvedilol 2020- No 1mg 25 mg 2-30 tablet 00:00: 00 Lantus 2020-09 No (3 mL) Solostar 2-30 U-100 00:00: Insulin 100 00 unit/mL (3 mL) subcutaneou s pen lovastatin 2020-09 No 1mg 20 mg 2-30 tablet 00:00: 00 glipizide 5 2020-09 No 1mg mg tablet 2-30 00:00: 00 Dose 2020- No Unknown 2-30 00:00: 00 duloxetine 2020- No 1mg 30 mg 2-30 capsule,del 00:00: ayed 00 release duloxetine 2020-09 No 1mg 30 mg 2-30 capsule,del 00:00: ayed 00 release lovastatin 2020-09 No 1mg 20 mg 2-13 tablet 00:00: [...] mg tablet 2-13 00:00: 00 glipizide 5 2020- No 1mg mg tablet 0-28 00:00: 00 lovastatin 2021-1 No 1mg 20 mg 0-28 tablet 00:00: 00 loratadine 1-1 No 1mg 10 mg 0-28 tablet 00:00: 00 Dose 2021-1 No Unknown 0-28 00:00: 00 glipizide 5 1-1 No 1mg mg tablet 0-28 00:00: 00 lovastatin 2021-1 No 1mg 20 mg 0-28 tablet 00:00: 00 loratadine 1-1 No 1mg 10 mg 0-28 tablet 00:00: 00 Dose 2021-1 No Unknown 0-28 00:00: 00 glipizide 5 1-1 No 1mg mg tablet 0 00:00: 00 lovastatin 1-1 No 1mg 20 mg 0-28 tablet 00:00: 00 loratadine 1-1 No 1mg 10 mg 0-28 tablet 00:00: 00 carvedilol 1-1 No 1mg 25 mg 0-28 tablet 00:00: 00 glipizide 5 1-1 No 1mg mg tablet 0 00:00: 00 lovastatin 1-1 No 1mg 20 [...] 25 mg 8-03 tablet 00:00: 00 loratadine 1-0 No 1mg 10 mg 8- tablet 00:00: 00 lovastatin 1-0 No 1mg 20 mg 8- tablet 00:00: 00 amlodipine 1-0 No 1mg 5 mg tablet 04-23 00:00: 00 glipizide 5 2020-0 No 1mg mg tablet 04-23 00:00: 00 carvedilol 2021-0 No 1mg 25 mg 8- tablet 00:00: 00 loratadine 1-0 No 1mg 10 mg 8- tablet 00:00: 00 lovastatin 2021-0 No 1mg 20 mg 8- tablet 00:00: 00 amlodipine 1-0 No 1mg 5 mg tablet 04-23 00:00: 00 glipizide 5 2020-0 No 1mg mg tablet 04-23 00:00: 00 carvedilol 1-0 No 1mg 25 mg 8- tablet 00:00: 00 Lantus 2020-0 No (3 mL) Solostar 7-01 [...] Novolin N 1-0 No unit/mL NPH U-100 30 Insulin 00:00: isophane 00 100 unit/mL subcutaneou s susp glipizide 5 2020-0 No 1mg mg tablet 03-20 00:00: 00 amlodipine 2021-0 No 1mg 5 mg tablet 03-20 00:00: 00 lovastatin 2021-0 No 1mg 20 [...] glipizide 5 1-0 No 1mg mg tablet 30 00:00: 00 amlodipine 2021-0 No 1mg 5 mg tablet 30 00:00: [...] glipizide 5 1-0 No 1mg mg tablet 03-20 00:00: 00 amlodipine 2021-0 No 1mg 5 mg tablet 03-20 00:00: 00 lovastatin 2021-0 No 1mg 20 [...] glipizide 5 1-0 No 1mg mg tablet 6-30 00:00: 00 amlodipine 2020-0 No 1mg 5 mg tablet 630 00:00: 00 lovastatin 2020-0 No 1mg 20 mg 6-30 tablet 00:00: 00 meloxicam 2020-0 No 1mg 15 mg 6-30 tablet 00:00: 00 loratadine 2020-0 No 1mg 10 mg 6-30 tablet 00:00: 00 vitamin B12 2020-0 No 1mg 0.5 6-30 mg-folic 00:00: acid 1 mg 00 tablet carvedilol 2020-0 No 1mg 25 mg 6-30 tablet 00:00: 00 fluticasone 2020-0 Yes [id number] 1 spray [facility] prop[facility] 6-12 each ity of 50 00:00: nostril [place] mcg/actuati 00 twice a Medic al on nasal day for 5 [place] spray days then daily fluticasone 2020-0 Yes [id number] 1 spray [facility] propionate 6-12 each ity of 50 00:00: nostril [place] mcg/actuati 00 twice a Medic al on nasal day for 5 [place] spray days then daily fluticasone 0 Yes [id number] 1 spray [facility] propionate 6-12 each ity of 50 00:00: nostril [place] mcg/actuati 00 twice a Medic al on nasal day for 5 Branch spray days then daily fluticasone 0 Yes [id number] 1 spray Univers propionate 6-12 each ity of 50 00:00: nostril [place] mcg/actuati 00 twice a Medic al on nasal day for 5 Branch spray days then daily fluticasone 2020-0 Yes [id number] 1 spray Univers propionate 6-12 each ity of 50 00:00: nostril [place] mcg/actuati 00 twice a Medic al on nasal day for 5 Branch spray days then daily fluticasone 2020-0 Yes [id number] 1 spray Univers propionate 6-12 each ity of 50 00:00: nostril [place] mcg/actuati 00 twice a Medic al on nasal day for 5 Branch spray days then daily fluticasone 2020-0 Yes [id number] 1 spray Univers propionate 6-12 each ity [...] narcotic Indication s: cough fluticasone 2020-0 Yes [id number] 1 spray Univers propionate 6-12 each ity of 50 00:00: nostril [place] mcg/actuati 00 twice a Medic al on nasal day for 5 Branch spray days then daily acetaminoph 2020-0 Yes 1/2 - 1 Uni vers en-codeine 6-12 tab Every ity of 300-30 mg 00:00: 4hrs as [place] tablet 00 needed for Medical pain or Branch cough requiring narcotic Indication s: cough acetaminoph 0 2- No 2 - 1 Un óscar en-codeine 6-12 05-14 tab Every ity of 300-30 mg 00:00: 00:00 4[place]rs [place] :00 needed for Medical pain or Branch cough requiring narcotic Indication s: cough Novolin N 2020-0 No unit/mL NPH U-100 10-23 Insulin 00:00: isophane 00 100 unit/mL subcutaneou s susp glipizide 5 2020-0 No 1mg mg tablet 10-23 00:00: 00 Novolin N 2020-0 No unit/mL NPH U-100 10-23 Insulin 00:00: isophane 00 100 unit/mL subcutaneou s susp glipizide 5 2020-0 No 1mg mg tablet 2 00:00: 00 Novolin N 1-0 No unit/mL NPH U-100 10-23 Insulin 00:00: isophane 00 100 unit/mL subcutaneou s susp glipizide 5 2020-0 No 1mg mg tablet 10-23 00:00: 00 Novolin N 2020-0 No unit/mL NPH U-100 10-23 Insulin 00:00: isophane 00 100 unit/mL subcutaneou s susp glipizide 5 2020-0 No 1mg mg tablet 10-23 00:00: 00 amlodipine 2020-0 No 1mg 5 mg tablet 05-10 00:00: 00 amlodipine 2020-0 No 1mg 5 mg tablet 05-10 00:00: 00 amlodipine 2020-0 No 1mg 5 mg tablet 8-20 00:00: 00 amlodipine 2020-0 No 1mg 5 mg tablet 8-20 00:00: 00 lovastatin 2020-0 No 1mg 20 [...] tizanidine 2020-0 No 1mg 4 mg tablet 4- 00:00: 00 lovastatin 2020-0 No 1mg 20 [...] amlodipine 2020-0 No 1mg 5 mg tablet 4 00:00: 00 glipizide 5 2020-0 No 1mg mg tablet 4 00:00: 00 carvedilol 2020-0 No 1mg 25 mg 4-29 tablet 00:00: 00 clonidine 2020-0 No 1mg HCl 0.2 mg 4-29 tablet 00:00: 00 lovastatin 2020-0 No 1mg 20 mg 4-29 tablet 00:00: 00 amlodipine 2020-0 No 1mg 5 mg tablet 4 00:00: 00 glipizide 5 2020-0 No 1mg mg tablet 4 00:00: 00 carvedilol 2020-0 No 1mg 25 mg 4-29 tablet 00:00: 00 clonidine 2020-0 No 1mg HCl 0.2 mg 4-29 tablet 00:00: 00 lovastatin 2020-0 No 1mg 20 mg 4-29 tablet 00:00: 00 amlodipine 2020-0 No 1mg 5 mg tablet 4 00:00: 00 glipizide 5 2020-0 No 1mg mg tablet 4 00:00: 00 carvedilol 2020-0 No 1mg 25 [...] glipizide 5 2020-0 No 1mg mg tablet 1-24 00:00: 00 amlodipine 2020-0 No 1mg 5 [...] amlodipine 2020-0 No 1mg 5 mg tablet 24 00:00: 00 loratadine 2020-0 No 1mg 10 [...] No 1mg mg tablet 24 00:00: 00 metFORMIN 2019-0 Yes 1000mg Take 1,000 Univers (FORTAMET) 5-05 mg by ity of 1,000 mg 24 19:20: mouth 2 Jf as hr tablet 02 (two) Medical times Branch daily with meals. carvedilol 2019-0 Yes 25mg Take 25 mg U nivers (COREG) 25 5-05 by mouth 2 ity of mg tablet 19:20: (two) [place] 02 times [facility] daily with Branch meals. lovastatin 2019-0 Yes 20mg Take 20 mg U nivers (MEVACOR) 5-05 by mouth ity of 20 mg 19:20: at [place] tablet 02 bedtime. Medical Branch DINA 2019-0 Yes 81mg Take 81 mg Univer s ASPIRIN 5-05 by mouth ity of ORAL 19:20: daily. [place] [address] Medical Branch cloniDINE 2019-0 Yes .2mg Take 0.2 Univ ers (CATAPRES) 5-05 mg by ity of 0.2 mg 19:20: mouth 2 [place] tablet 02 (two) Medical times Branch daily. diphenhydrA 2018- Yes 25mg Take 25 mg Univers MINE 5-05 by mouth ity of (BENADRYL) 19:20: as needed [place] 25 mg 02 for Medical capsule Allergies. Branch lisinopril- Yes 2{tbl} Take 2 Un óscar hydrochloro 5-05 tablets by it y of thiazide 19:20: mouth [place] (PRINZIDE,Z 02 daily. Medica l ESTORETIC) Branch 20-12.5 mg per tablet losartan-hy 2018- Yes 1{tbl} Take 1 Un óscar drochloroth 5-05 tablet by ity of iazide 19:20: mouth [place] 100-25 mg 02 daily. Medical per tablet Branch meloxicam Yes 15mg Take 15 mg Un óscar 15 mg 5-05 by mouth ity of tablet 19:20: daily. [place] [address] Medical Branch loratadine Yes 10mg Take 10 mg U nivers 10 mg 5-05 by mouth ity of tablet 19:20: daily. [place] [address] Medical Branch metFORMIN Yes 1000mg Take 1,000 Univers (FORTAMET) 5-05 mg by ity of 1,000 mg 24 19:20: mouth 2 Jf as hr tablet 02 (two) Medical times Branch daily with meals. carvedilol Yes 25mg Take 25 mg U nivers (COREG) 25 5-05 by mouth 2 ity of mg tablet 19:20: (two) [place] 02 times Medical daily with Branch meals. lovastatin Yes 20mg Take 20 mg U nivers (MEVACOR) 5-05 by mouth ity of 20 mg 19:20: at [place] tablet 02 bedtime. Medical Branch DINA 0 Yes 81mg Take 81 mg Univer s ASPIRIN 5-05 by mouth ity of ORAL 19:20: daily. [place] [address] Medical Branch cloniDINE 2018-0 Yes .2mg Take 0.2 Univ ers (CATAPRES) 5-05 mg by ity of 0.2 mg 19:20: mouth 2 [place] tablet 02 (two) Medical times Branch daily. diphenhydrA Yes 25mg Take 25 mg Univers MINE 5-05 by mouth ity of (BENADRYL) 19:20: [place] 25 mg 02 for Medical capsule Allergies. Branch lisinopril- 2019 Yes 2{tbl} Take 2 Un óscar hydrochloro [...] ity of mg tablet 14:20: (two) [place] times Medical daily with Branch meals. lovastatin [...] ity of mg tablet 14:20: (two) [place] times Medical daily with Branch meals. lovastatin Yes 20mg Take 20 mg U nivers (MEVACOR) 5-05 by mouth ity of 20 mg 14:20: at [place] tablet 02 bedtime. Medical Branch DINA Yes 81mg Take 81 mg Univer s ASPIRIN 5-05 by mouth ity of ORAL 14:20: daily. Medical Branch cloniDINE 2019 Yes .2mg Take 0.2 Univ ers (CATAPRES) [...] by mouth ity of tablet 14:20: daily. [address] Branch loratadine Yes 10mg Take 10 mg U nivers 10 mg 5-05 by mouth ity of tablet 14:20: daily. [address] Branch carvedilol Yes 25mg Take 25 mg U nivers (COREG) 25 5-05 by mouth 2 ity of mg tablet 14:20: (two) [address] daily with Branch meals. Immunizations Ordered Filled Immunization Date Status Comments [facility] e Immunization Name Name SARS-COV-2 COVID-19 2021-09-08 Completed Unive rsity of MODERNA VACCINE 00:00:00 [facility] SARS-COV-2 COVID-19 2021-09-08 Completed Unive rsity of MODERNA VACCINE 00:00:00 [facility] SARS-COV-2 COVID-19 2021-09-08 Completed Unive rsity of MODERNA VACCINE 00:00:00 [facility] Moderna COVID-19 2020-11-27 Completed Vaccine 00:00:00 Moderna COVID-19 2020-11-27 Completed Vaccine 00:00:00 Moderna COVID-19 2020-11-27 Completed Vaccine 00:00:00 Moderna COVID-19 2020-11-27 Completed Vaccine 00:00:00 SARS-COV-2 COVID-19 2020-11-27 Completed Unive rsity of MODERNA VACCINE 00:00:00 [facility] SARS-COV-2 COVID-19 2020-11-27 Completed Unive rsity of MODERNA VACCINE 00:00:00 [facility] SARS-COV-2 COVID-19 2020-11-27 Completed Unive rsity of MODERNA VACCINE 00:00:00 [facility] Moderna COVID-19 2020-10-29 Completed Vaccine 00:00:00 Moderna COVID-19 2020-10-29 Completed Vaccine 00:00:00 Moderna COVID-19 2020-10-29 Completed Vaccine 00:00:00 Moderna COVID-19 2020-10-29 Completed Vaccine 00:00:00 SARS-COV-2 COVID-19 2020-10-29 Completed Unive rsity of MODERNA VACCINE 00:00:00 [facility] SARS-COV-2 COVID-19 2020-10-29 Completed Unive rsity of MODERNA VACCINE 00:00:00 [facility] SARS-COV-2 COVID-19 2020-10-29 Completed Unive rsity of MODERNA VACCINE 00:00:00 [facility] Pneumococcal 2020-08-09 Completed University o f Polysaccharide, 00:00:00 [facility] PPSV23 (PNEUMOVAX) Branch Pneumococcal 2020-08-09 Completed University o f Polysaccharide, 00:00:00 [facility] PPSV23 (PNEUMOVAX) Branch Pneumococcal 2020-08-09 Completed University o f Polysaccharide, 00:00:00 [facility] PPSV23 (PNEUMOVAX) Branch Influenza Virus 2020-08-08 Completed Universit y of Vaccine Quad IM 3+ 00:00:00 [facility] Influenza Virus 2020-08-08 Completed Universit y of Vaccine Quad IM 3+ 00:00:00 [facility] Influenza Virus 2020-08-08 Completed Universit y of Vaccine Quad IM 3+ 00:00:00 [facility] Vital Signs Vital Name Observation Time Observation Value Comments Source WEIGHT 2022-11-14 16:00:00 99.791 kg HEIGHT 2022-11-13 20:09:00 167.6 cm WEIGHT 2022-11-13 20:09:00 99.791 kg WEIGHT 2022-11-14 16:00:00 99.791 kg HEIGHT 2022-11-13 20:09:00 167.6 cm WEIGHT 2022-11-13 20:09:00 99.791 kg WEIGHT 2022-11-06 05:25:00 102.967 kg WEIGHT 2022-10-31 05:00:00 97.8 kg WEIGHT 2022-10-30 06:00:00 98 kg HEIGHT 2022-10-29 02:00:00 170.2 cm WEIGHT 2022-10-29 02:00:00 98.5 kg WEIGHT 2022-11-06 05:25:00 102.967 kg WEIGHT 2022-10-31 05:00:00 97.8 kg WEIGHT 2022-10-30 06:00:00 98 kg HEIGHT 2022-10-29 02:00:00 170.2 cm WEIGHT 2022-10-29 02:00:00 98.5 kg HEIGHT 2022-09-23 21:07:00 170.2 cm WEIGHT 2022-09-23 21:07:00 104.4 kg WEIGHT 2022-09-21 13:00:00 101.6 kg HEIGHT 2022-09-14 02:00:00 167.6 cm WEIGHT 2022-09-14 02:00:00 96 kg HEIGHT 2022-09-23 21:07:00 170.2 cm WEIGHT 2022-09-23 21:07:00 104.4 kg WEIGHT 2022-09-21 13:00:00 101.6 kg HEIGHT 2022-09-14 02:00:00 167.6 cm WEIGHT 2022-09-14 02:00:00 96 kg Systolic blood 2022-05-14 16:58:00 171 mm[Hg] Univer sity of pressure [facility] [place] [facility] Diastolic blood 2022-05-14 16:58:00 75 mm[Hg] Unive rsity of pressure [facility] [place] [facility] Heart rate 2022-05-14 16:50:00 50 /min Universi [facility] Respiratory rate 2022-05-14 16:50:00 23 /min Univ ersity [facility] Oxygen saturation in 2022-05-14 16:50:00 99 /min [facility] blood by [facility] Pulse oximetry Branch Body temperature 2022-05-14 16:13:00 36.56 Radha Univ ersity [facility] [place] [facility] Body height 2022-05-14 15:20:00 167.6 cm [facility] [place] [facility] Body weight 2022-05-14 15:20:00 109.3 kg [facility] [place] [facility] BMI 2022-05-14 15:20:00 38.89 kg/m2 [facility] [place] [facility] Body height 2022-05-14 15:20:00 167.6 cm [facility] [place] [facility] Body weight 2022-05-14 15:20:00 109.3 kg [facility] [place] [facility] BMI 2022-05-14 15:20:00 38.89 kg/m2 [facility] [place] [facility] Systolic blood 2022-05-14 14:40:00 180 mm[Hg] Univer sity of pressure [place] [facility] Diastolic blood 2022-05-14 14:40:00 63 mm[Hg] Unive rsity of pressure [place] [facility] Heart rate 2022-05-14 14:35:00 53 /min [facility] [place] [facility] Body temperature 2022-05-14 14:35:00 36.28 Radha Univ ersity [facility] [place] [facility] Respiratory rate 2022-05-14 14:35:00 18 /min Univ ersity [facility] [place] [facility] Oxygen saturation in 2022-05-14 14:35:00 100 /min University of Arterial blood by [facility] Pulse oximetry Branch Systolic blood 2022-02-01 17:58:00 122 mm[Hg] Univer sity of pressure [place] [facility] Diastolic blood 2022-02-01 17:58:00 75 mm[Hg] Unive rsity of pressure [place] [facility] Heart rate 2022-02-01 17:58:00 61 /min [facility]i ty [facility] [place] [facility] Respiratory rate 2022-02-01 17:58:00 16 /min Univ ersity [facility] [place] [facility] Oxygen saturation in 2022-02-01 17:58:00 99 /min University of Arterial blood by [facility] Pulse oximetry Branch Body temperature 2022-02-01 15:48:00 37.33 Radha Univ ersity [facility] [place] [facility] Body height 2022-02-01 15:48:00 167.6 cm [facility] [place] [facility] Body weight 2022-02-01 15:48:00 109.317 kg Universi ty [facility] [place] BMI 2022-02-01 15:48:00 38.90 kg/m2 Univers ty [facility] Systolic blood 2021-03-02 23:37:00 155 mm[Hg] Univer sity of pressure [facility] [place] [facility] Diastolic blood 2021-03-02 23:37:00 89 mm[Hg] Unive rsity of pressure [facility] [place] [facility] Heart rate 2021-03-02 23:37:00 64 /min Universi ty [facility] Respiratory rate 2021-03-02 23:37:00 18 /min [facility] [place] [facility] in 2021-03-02 23:37:00 95 /min [facility] Arterial blood by [facility] Pulse oximetry [place] Body temperature 2021-03-02 23:33:00 37.17 Radha [facility] [place] [facility] [place] [facility] Body height 2021-03-02 23:33:00 [facility]6 [facility] Body weight 2021-03-02 23:33:[address] [facility] ty [facility] BMI 2021-03-02 23:33:00 40.19 kg/m2 [facility] ty [facility] Heart Rate 2023-03-13 15:03:00 [facility] Systolic (mm Hg) 2023-03-13 15:03:00 Zhang rial [facility] Diastolic (mm Hg) 2023-03-13 15:03:00 Mem orial [place] Height 2023-03-13 15:03:00 5 [ft_i] [facility] [place] Weight 2023-03-13 15:03:00 [facility] [place] BMI Calculated 2023-03-13 15:03:00 Memori al [place] Heart Rate 2023-03-11 16:43:00 [facility] Systolic (mm Hg) 2023-03-11 16:43:00 Zhang rial [place] Diastolic (mm Hg) 2023-03-11 16:43:00 Mem orial [place] Height 2023-03-11 16:43:00 5 [ft_i] [facility] [place] Weight 2023-03-11 16:43:00 [facility] [place] BMI Calculated 2023-03-11 16:43:00 Memori al [facility] Systolic (mm Hg) 2022-12-05 13:15:00 Zhang coreas [place] Diastolic (mm Hg) 2022-12-05 13:15:00 Mem geraldine [facility] Heart Rate 2022-12-05 13:15:00 Delmer Johnson Temperature Oral (F) 2022-12-05 12:12:55 98.7 F [facility] Alex Height 2022-11-25 01:40:00 5 [ft_i] Delmer Johnson Weight 2022-11-25 01:40:00 [facility] [place] BMI Calculated 2022-11-25 01:40:00 Miraori al Alex Systolic blood 2022-11-21 16:00:00 149 mm[Hg] [facility] Diastolic blood 2022-11-21 16:00:00 70 mm[Hg] [facility] Heart rate 2022-11-21 16:00:00 62 /min [facility] Body temperature 2022-11-21 16:00:00 36.44 Radha [facility] Respiratory rate 2022-11-21 16:00:00 18 /min [facility] Oxygen saturation in 2022-11-21 16:00:00 98 /min [facility] Arterial blood by Medical Ce nter Pulse oximetry Body weight 2022-11-14 16:00:00 99.791 kg [facility] BMI 2022-11-14 16:00:00 35.51 kg/m2 [facility] Body height 2022-11-13 20:09:00 167.6 cm [facility] Systolic blood 2022-09-25 11:13:00 123 mm[Hg] [facility] Diastolic blood 2022-09-25 11:13:00 60 mm[Hg] [facility] Heart rate 2022-09-25 11:13:00 58 /min [facility] Body temperature 2022-09-25 11:13:00 36.67 Radha [facility] Respiratory rate 2022-09-25 11:13:00 18 /min [facility] Oxygen saturation in 2022-09-25 11:13:00 100 /min [facility] Arterial blood by Medical Ce nter Pulse oximetry Body height 2022-09-23 21:07:00 170.2 cm [facility] Body weight 2022-09-23 21:07:00 104.4 kg [facility] BMI 2022-09-23 21:07:00 36.05 kg/m2 [facility] BP Systolic 2022-08-11 11:33:00 228 mm[Hg] BP [...] Time Performing Clinician Source Performed POCT-GLUCOSE METER 2022-11-21 12:09:00 Yana Hamilton [facility] POCT-GLUCOSE METER 2022-11-21 08:37:00 Yana Hamilton [facility] BASIC METABOLIC PANEL 2022-11-21 05:11:00 Yana Hamilton [facility] MAGNESIUM 2022-11-21 05:11:00 Yana Hamilton [facility] PHOSPHORUS 2022-11-21 05:11:00 Yana Hamilton [facility] POCT-GLUCOSE METER 2022-11-20 21:51:00 Yana Hamilton [facility] POCT-GLUCOSE METER 2022-11-20 17:50:00 Yana Hamilton [facility] SARS-COV2/RT-PCR ([facility] & 2022-11-20 16:23:00 Yana Hamilton [facility] REF LABS) Center POCT-GLUCOSE METER 2022-11-20 12:47:00 Yana Hamilton [facility] SODIUM, RANDOM URINE 2022-11-20 11:33:00 Yana Hamilton [facility] CREATININE, RANDOM URINE 2022-11-20 11:33:00 Yana Hamilton [facility] UREA NITROGEN, RANDOM 2022-11-20 11:33:00 Yana Hamilton [facility] URINE Center POCT-GLUCOSE METER 2022-11-20 08:27[facility] % SAT. 2022-11-20 04:45:00 Yana Hamilton [facility] (WITHOUT FERRITIN) Center BASIC METABOLIC PANEL 2022-11-20 04:45:00 Yana Hamilton [facility] MAGNESIUM 2022-11-20 04:45:00 Yana Hamilton [facility] PHOSPHORUS 2022-11-20 04:45:00 Yana Hamilton [facility] POCT-GLUCOSE METER 2022-11-19 21:07:00 Yana Hamilton [facility] POCT-GLUCOSE METER 2022-11-19 17:15:00 Yana Hamilton [facility] POCT-GLUCOSE METER 2022-11-19 11:26:00 Yana Hamilton [facility] POCT-GLUCOSE METER 2022-11-19 08:14:00 Yana Hamilton [facility] POCT-GLUCOSE METER 2022-11-18 21:28:00 Srikanth Green [facility] IR TUNNELED CATHETER 2022-11-18 17:55:00 Srikanth Greeni [facility] POCT-GLUCOSE METER 2022-11-18 11:56:00 [facility] 2022-11-18 07:24:00 Peter, Marisan[facility]ole [facility] CBC W/PLT COUNT & AUTO 2022-11-18 05:03:00 Peter, Srikanth Rivas [facility] BASIC METABOLIC PANEL 2022-11-18 05:03:00 Peter, Srikanth Edouard [facility] CBC W/PLT COUNT & AUTO 2022-11-18 05:03:00 Peter, Srikanth Rivas [facility] POCT-GLUCOSE METER 2022-11-17 21:43:00 Peter, [facility] POCT-GLUCOSE METER 2022-11-17 17:21:00 [facility] POCT-[facility]SE METER 2022-11-17 14:19:00 Peter, [facility] POCT-GLUCOSE METER 2022-11-17 08:57:00 [facility] POCT-GLUCOSE METER 2022-11-17 07:54:00 Peter, [facility] CBC W/PLT COUNT & AUTO 2022-11-17 06:05:00 Peter, Srikanth Rivas [facility] BASIC METABOLIC PANEL 2022-11-17 06:05:00 Peter, Srikanth Edouard [facility] CBC W/PLT COUNT & AUTO 2022-11-17 06:05:00 Peter, Srikanth Rivas [facility] POCT-GLUCOSE METER 2022-11-16 20:30:00 [facility], [facility] POCT-GLUCOSE METER 2022-11-16 17:24:00 Peter, [facility] POCT-GLUCOSE METER 2022-11-16 12:18:00 [facility] POCT-GLUCOSE METER 2022-11-16 08:09:00 Peter, [facility] CBC W/PLT COUNT & AUTO 2022-11-16 06:05:00 Peter, Srikanth Rivas [facility] BASIC METABOLIC PANEL 2022-11-16 06:05:00 Peter, Srikanth Edouard [facility] CBC W/PLT COUNT & AUTO 2022-11-16 06:05:00 Peter, Srikanth Edouard C [facility] POCT-GLUCOSE METER 2022-11-15 21:22:00 Peter, [facility] POCT-GLUCOSE METER 2022-11-15 17:41:00 Peter, [facility] POCT-GLUCOSE METER 2022-11-15 12:31:00 Peter, [facility] POCT-GLUCOSE METER 2022-11-15 08:12:00 Peter, [facility] CBC W/PLT COUNT & AUTO 2022-11-15 04:30:00 Ginny [facility] COMPREHENSIVE METABOLIC 2022-11-15 04:30:00 Ginny [facility] PROTHROMBIN TIME/INR 2022-11-15 04:30:00 Ginny [facility] CBC W/PLT COUNT & AUTO 2022-11-15 04:30:00 Ginny [facility] POCT-GLUCOSE METER 2022-11-14 21:26:00 Ginny [facility] POCT-GLUCOSE METER 2022-11-14 16:00:00 Ginny [facility] EEG AWAKE AND DROWSY 2022-11-14 14:30:42 Ginny [facility] MR BRAIN WITH & WITHOUT 2022-11-14 04:33:00 Carolyn Parish [facility] IV CONTRAST Center VENOUS DOPPLER LEGS 2022-11-13 23:03:00 [facility], Jennifer donna [facility] BILATERAL Center CT BRAIN WITHOUT IV 2022-11-13 22:01:00 [facility], Jennifer donna [facility] CONTRAST Center SARS-COV2/RT-PCR ([facility] & 2022-11-13 21:03:00 [facility], Jennifer Rivas [facility] REF LABS) Center CBC W/PLT COUNT & AUTO 2022-11-13 21:02:00 [facility], Jennifer donna [facility] [place] BASIC METABOLIC PANEL 2022-11-13 21:02:00 [facility], Jennifer donna [facility] TYPE AND SCREEN, 2022-11-13 21:02:00 [facility], Jennifer donna [facility] AUTOMATED Center CBC W/PLT COUNT & AUTO 2022-11-13 21:02:00 [facility], Jennifer [facility] XR CHEST 1 VIEW PORTABLE 2022-11-13 20:58:00 [facility], Jennifer Rivas [facility] / BEDSIDE Center POCT-GLUCOSE METER 2022-11-06 13:35:00 Checo Ivan [facility] POCT-GLUCOSE METER 2022-11-06 08:01:00 Checo Ivan [facility] BASIC METABOLIC PANEL 2022-11-06 03:51:00 Checo Ivan [facility] MAGNESIUM 2022-11-06 03:51:00 Babak Patel [facility] CBC W/PLT COUNT & AUTO 2022-11-06 03:51:00 [facility] [place] CBC W/PLT COUNT & AUTO 2022-11-06 03:51:00 [facility] Center POCT-GLUCOSE METER 2022-11-05 21:48:00 Checo Ivan [facility] POCT-GLUCOSE METER 2022-11-05 20:55:00 Checo Ivan [facility] POCT-GLUCOSE METER 2022-11-05 17:15:00 Checo Ivan [facility] ELECTROLYTES 2022-11-05 16:56:00 [facility] POCT-GLUCOSE METER 2022-11-05 11:31:00 Checo Ivan [facility] POCT-GLUCOSE METER 2022-11-05 09:58:00 Checo Ivan [facility] IR TUNNELED CATHETER 2022-11-05 08:57:00 [facility] [place] POCT-GLUCOSE METER 2022-11-04 23:39[facility] 2022-11-04 [facility]:36[facility] 2022-11-04 11:40:00 [facility] PROTHROMBIN TIME/INR 2022-11-04 11:29:00 [facility] POCT-GLUCOSE METER 2022-11-04 08:08:00 [facility] SARS-COV2/RT-PCR ([facility] 2022-11-04 06:02[facility] CALCIUM, IONIZED 2022-11-04 04:36:00 [facility] COMPREHENSIVE METABOLIC 2022-11-04 04:35:00 [facility] Center MAGNESIUM 2022-11-04 04:35:00 [facility] PHOSPHORUS 2022-11-04 04:35:00 [facility] CBC W/PLT COUNT & AUTO 2022-11-04 04:35:00 [facility] CBC W/PLT COUNT & AUTO 2022-11-04 04:35:00 [facility] PROTEIN, RANDOM URINE 2022-11-03 21:33:00 [facility] CREATININE, RANDOM URINE 2022-11-03 21:33:00 [facility] POCT-GLUCOSE METER 2022-11-03 20:59:00 [facility] POCT-GLUCOSE METER 2022-11-03 18:06:00 [facility] POCT-GLUCOSE METER 2022-11-03 11:43:00 [facility] CBC W/PLT COUNT & AUTO 2022-11-03 09:22:[address] [facility] BASIC METABOLIC PANEL 2022-11-03 09:22:00 Ginny [facility] CBC W/PLT COUNT & AUTO 2022-11-03 09:22:[address] [facility] POCT-GLUCOSE METER 2022-11-03 09:13:00 [facility] POCT-GLUCOSE METER 2022-11-02 20:38:00 [facility] POCT-GLUCOSE METER 2022-11-02 18:03:00 [facility] POCT-GLUCOSE METER 2022-11-02 12:28:00 [facility] POCT-GLUCOSE METER 2022-11-02 07:43:00 [facility] CREATININE 2022-11-02 05:56:00 Margarito [facility] CBC W/PLT COUNT & AUTO 2022-11-02 04:35:[address] [facility] CBC W/PLT COUNT & AUTO 2022-11-02 04:35:[address] [facility] POCT-GLUCOSE METER 2022-11-01 17:16:00 [facility] POCT-GLUCOSE METER 2022-11-01 13:40:00 [facility] POCT-GLUCOSE METER 2022-11-01 09:20:00 [facility] CBC W/PLT COUNT & AUTO 2022-11-01 04:29:00 Pimentel, [facility] CREATININE 2022-11-01 04:29:[address] [facility], [facility] HEPATIC FUNCTION PANEL 2022-11-01 04:29:[address], [facility] CBC W/PLT COUNT & AUTO 2022-11-01 04:29:[address], [facility] POCT-GLUCOSE METER 2022-10-31 21:16:00 Fernando Parra [facility] POCT-GLUCOSE METER 2022-10-31 16:01:00 [facility] POCT-GLUCOSE METER 2022-10-31 12:12:00 [facility] VANCOMYCIN LEVEL, RANDOM 2022-10-31 11:20:00 Grover Tim [facility] POTASSIUM 2022-10-31 11:20:00 [facility] MAGNESIUM 2022-10-31 11:20:00 [facility] XR CHEST 1 VIEW PORTABLE 2022-10-31 09:57:00 Chandler Robles [facility] POCT-GLUCOSE METER 2022-10-31 06:42:00 [facility] CBC W/PLT COUNT & AUTO 2022-10-31 03:21:00 Pimentel, [facility] BASIC METABOLIC PANEL 2022-10-31 03:21:00 Rosa M Majano [facility] MAGNESIUM 2022-10-31 03:21:00 [facility] PHOSPHORUS 2022-10-31 03:21:00 Pittard [facility] CBC W/PLT COUNT & AUTO 2022-10-31 03:21:00 Estella Snadhu [facility] POCT-GLUCOSE METER 2022-10-30 22:27:00 [facility]SE [facility] 2022-10-30 16:25:00 [facility] POCT-GLUCOSE METER 2022-10-30 11:24:00 [facility] POCT-GLUCOSE METER 2022-10-30 06:43:00 [facility] BASIC METABOLIC PANEL 2022-10-30 04:39:00 [facility] MAGNESIUM 2022-10-30 04:39:00 [facility] PHOSPHORUS 2022-10-30 04:39:00 [facility] VANCOMYCIN LEVEL, RANDOM 2022-10-30 04:39:00 Patience Yepez [facility] CBC W/PLT COUNT & AUTO 2022-10-30 04:39:[address] [facility] CBC W/PLT COUNT & AUTO 2022-10-30 04:39:00 Estella Sandhu [facility] BASIC METABOLIC PANEL 2022-10-29 23:12:00 [facility] MAGNESIUM 2022-10-29 23:12:00 [facility] PHOSPHORUS 2022-10-29 23:12:00 [facility] CBC (HEMOGRAM ONLY) 2022-10-29 23:12:00 Estella Sandhu [facility] BRAIN WITHOUT IV 2022-10-29 20:22:00 Marie Mcculloughrick [facility] POCT-GLUCOSE METER 2022-10-29 18:03:00 Shira Lamb [facility] TISSUE EXAM 2022-10-29 15:59:00 [facility] 2022-10-29 15:57:16 [facility] + [facility]AM ST[facility] Center FUNGUS CULTURE + SMEAR 2022-10-29 15:57:[facility] 2022-10-29 15:57:16 [facility] CULTURE + SMEAR 2022-10-29 15:57:16 [facility] (NON-SPUTUM) [place] SPIN/CONCENTRATION 2022-10-29 15:57:00 [facility] 2022-10-29 14:54:34 [facility] (NON-SPUTUM) Center ANAEROBIC CULTURE 2022-10-29 14:54:34 [facility] FUNGUS CULTURE + SMEAR 2022-10-29 14:54:34 [facility] SURGICALLY OBTAINED 2022-10-29 14:54:34 [facility] CULTURE + GRAM STAIN Center SPIN/CONCENTRATION 2022-10-29 14:54:00 [facility] ANAER[facility] C[facility] 2022-10-29 14:52:16 [facility] CULTURE + SMEAR 2022-10-29 14:52:16 [facility] (NON-SPUTUM) Center FUNGUS CULTURE + SMEAR 2022-10-29 14:52:16 [facility] SURGICALLY [facility]ED 2022-10-29 14:52:16 [facility] CULTURE + GRAM STAIN Center SPIN/CONCENTRATION 2022-10-29 14:52:00 Waylon [facility] ANAEROBIC CULTURE 2022-10-29 14:47:48 [facility]MEAR 2022-10-29 14:47:48 [facility] [place] FUNGUS CULTURE + SMEAR 2022-10-29 14:47:48 Connors [facility] SURGICALLY OBTAINED 2022-10-29 14:47:48 [facility] CULTURE + GRAM STAIN Center SPIN/CONCENTRATION 2022-10-29 14:47:00 Waylon [facility] SURGICALLY OBTAINED 2022-10-29 14:40:52 [facility] CULTURE + GRAM STAIN Center FUNGUS CULTURE + SMEAR 2022-10-29 14:40:52 [facility] ANAEROBIC CULTURE 2022-10-29 14:40:52 [facility] CULTURE + SMEAR 2022-10-29 14:40:52 [facility] (NON-SPUTUM) Center SPIN/CONCENTRATION 2022-10-29 14:40:00 Waylon [facility] CRANIECTOMY OR 2022-10-29 13:35:00 Connors [facility] CRANIOTOMY, FOR HEMATOMA Center EVACUATION MR BRAIN WITH & WITHOUT 2022-10-29 12:29:00 Javon Gorman [facility] IV CONTRAST Center POCT-GLUCOSE METER 2022-10-29 07:30:00 [facility] [place] URINALYSIS MICROSCOPIC 2022-10-29 05:35:00 Estella Sandhu [facility] CT BRAIN WITHOUT IV 2022-10-29 05:19:00 Estella Sandhu [facility] CONTRAST Center ECG 12-LEAD 2022-10-29 03:55:05 Unknown, Hl7 Doctor [facility] ECG 12-LEAD 2022-10-29 03:54:40 Edson [facility] ECG 12-LEAD 2022-10-29 03:54:40 Unknown, Hl7 Doctor [facility] ECG 12-LEAD 2022-10-29 03:53:59 Unknown, Hl7 Doctor [facility] XR CHEST 1 VIEW PORTABLE 2022-10-29 03:22:00 Edson [facility] Center POCT-GLUCOSE METER 2022-10-29 02:56:00 Shira Lamb [facility] HEMOGLOBIN A1C 2022-10-29 02:19:00 Edson [facility] CBC W/PLT COUNT & AUTO 2022-10-29 02:19:00 Estella Sandhu [facility] COMPREHENSIVE METABOLIC 2022-10-29 02:19:00 Estella Sandhu [facility] PANEL Center MAGNESIUM 2022-10-29 02:19:00 Edson [facility] PHOSPHORUS 2022-10-29 02:19:00 E[facility]on [facility] LACTIC ACID, VENOUS 2022-10-29 02:19:00 Edson [facility] HIGH SENSITIVITY 2022-10-29 02:19:00 Edson [facility] TROPONIN I Center BLOOD GAS, VENOUS 2022-10-29 02:19:00 [facility] PROCALCITONIN 2022-10-29 02:19:00 Edson [facility] B-TYPE NATRIURETIC 2022-10-29 02:19:00 [facility] FACTOR (BNP) [place] PROTHROMBIN TIME/INR 2022-10-29 02:19:00 [facility] APTT 2022-10-29 02:19:00 [facility]IT[facility] B12 2022-10-29 02:19:00 [facility] TSH/FREE T4 IF INDICATED 2022-10-29 02:19:00 Edson [facility] CREATINE KINASE (CK) 2022-10-29 02:19:00 [facility] TYPE AND SCREEN, 2022-10-29 02:19:00 [facility] AUTOMATED [place] CBC W/PLT COUNT & AUTO 2022-10-29 02:19:00 [facility] EKG-SCANNED 2022-10-29 00:00:00 Provider [facility] POCT-GLUCOSE METER 2022-09-25 11:17:00 Ede Skelton [facility] POCT-GLUCOSE METER 2022-09-25 07:59:00 Ede Skelton Rescalderon [facility] MAGNESIUM 2022-09-25 04:54:00 [facility] BASIC METABOLIC PANEL 2022-09-25 04:54:00 [facility] CBC (HEMOGRAM ONLY) 2022-09-25 04:54:00 [facility] PH[facility]US 2022-09-25 04:54:00 [facility] POCT-GLUCOSE METER 2022-09-24 21:20:00 [facility] POCT-[facility]UCOSE METER 2022-09-24 16:21:00 [facility] POCT-GLUCOSE METER 2022-09-24 12:22:00 [facility] POCT-GLUCOSE METER 2022-09-24 07:28:00 Massmargaret [facility] MAGNESIUM 2022-09-24 05:17:00 [facility] BASIC METABOLIC PANEL 2022-09-24 05:17:00 [facility] CBC (HEMOGRAM ONLY) 2022-09-24 05:17:00 [facility] PHOS[facility]US 2022-09-24 05:17:00 [facility] PHENYTOIN LEVEL, TOTAL 2022-09-24 05:17:00 [facility] POCT-GLUCOSE METER 2022-09-23 20:24:00 [facility] POCT-GLUCOSE METER 2022-09-23 16:08:00 [facility], [facility] POCT-GLUCOSE METER 2022-09-23 11:18:00 [facility] POCT-GLUCOSE METER 2022-09-23 09:13:00 [facility], [facility] POCT-GLUCOSE METER 2022-09-23 07:44:00 [facility], [facility] MAGNESIUM 2022-09-23 03:56:00 [facility] BASIC METABOLIC PANEL 2022-09-23 03:56:00 [facility] CBC (HEMOGRAM ONLY) 2022-09-23 03:56:00 [facility] PHOSPHORUS 2022-09-23 03:56:00 [facility] POCT-GLUCOSE METER 2022-09-22 21:04:00 [facility] SARS-COV2/RT-PCR ([facility] & 2022-09-22 20:13:00 Rtichie Graham [facility] REF LABS) Center POCT-GLUCOSE METER 2022-09-22 15:53:00 [facility], [facility] POCT-GLUCOSE METER 2022-09-22 11:33:00 [facility] MR BRAIN WITH & WITHOUT 2022-09-22 10:18:00 Femi Duvall [facility] IV CONTRAST Center POCT-GLUCOSE METER 2022-09-22 08:23:00 [facility] MAGNESIUM 2022-09-22 04:28:00 [facility] BASIC METABOLIC PANEL 2022-09-22 04:28:00 [facility] CBC (HEMOGRAM ONLY) 2022-09-22 04:28:00 [facility] PHOSPHORUS 2022-09-22 04:28:00 [facility] POCT-GLUCOSE METER 2022-09-22 00:13:00 [facility] PHENYTOIN LEVEL, TOTAL 2022-09-21 19:20:00 Allison Tee [facility] Radha [place] BASIC METABOLIC PANEL 2022-09-21 19:20:00 [facility] MAGNESIUM 2022-09-21 19:20:00 [facility] 2022-09-21 19:20:00 [facility] POCT-GLUCOSE METER 2022-09-21 13:34:00 [facility] TISSUE EXAM 2022-09-21 11:03:00 Waylon [facility] CRANIECTOMY OR 2022-09-21 08:36:00 Waylon [facility] CRANIOTOMY, FOR HEMATOMA Center EVACUATION POCT-GLUCOSE METER 2022-09-21 08:03:00 [facility] MAGNESIUM 2022-09-21 06:02:00 [facility] BASIC METABOLIC PANEL 2022-09-21 06:02:00 [facility] CBC (HEMOGRAM ONLY) 2022-09-21 06:02:00 [facility] PHOS[facility]ORUS 2022-09-21 06:02:00 [facility] POCT-GLUCOSE METER 2022-09-20 21:05:00 [facility] POCT-GLUCOSE METER 2022-09-20 16:42:00 [facility] ECG 12-LEAD 2022-09-20 16:14:47 Unknown, Hl7 [facility] PROTHROMBIN TIME/INR 2022-09-20 15:55:00 Luis Antonio [facility] APTT 2022-09-20 15:55:00 Luis Antonio [facility] TYPE AND SCREEN, 2022-09-20 15:55:00 [facility] [place] SARS-COV2/RT-PCR ([facility] & 2022-09-20 15:09:00 [facility] REF LABS) [place] XR CHEST 1 VIEW PORTABLE 2022-09-20 12:34:00 [facility] POCT-GLUCOSE METER 2022-09-20 11:57:00 [facility] POCT-GLUCOSE METER 2022-09-20 08:12:00 [facility] MAGNESIUM 2022-09-20 06:26:00 [facility] BASIC METABOLIC PANEL 2022-09-20 06:26:00 [facility] CBC (HEMOGRAM ONLY) 2022-09-20 06:26:00 [facility] PHOSPHORUS 2022-09-20 06:26:00 [facility] POCT-GLUCOSE METER 2022-09-19 21:18:00 [facility] POCT-GLUCOSE METER 2022-09-19 17:23:00 [facility] POCT-GLUCOSE METER 2022-09-19 12:19:00 [facility] POCT-GLUCOSE METER 2022-09-19 07:29:00 [facility]UM 2022-09-19 05:33:00 [facility] BASIC METABOLIC PANEL 2022-09-19 05:33:00 [facility] CBC (HEMOGRAM ONLY) 2022-09-19 05:33:00 [facility] PHOS[facility]US 2022-09-19 05:33:00 [facility] POCT-GLUCOSE METER 2022-09-18 21:11:00 [facility] POCT-GLUCOSE METER 2022-09-18 18:03:00 [facility] POCT-GLUCOSE METER 2022-09-18 17:09:00 [facility] POCT-GLUCOSE METER 2022-09-18 13:06:00 [facility] POCT-GLUCOSE METER 2022-09-18 07:44:00 [facility] MAGNESIUM 2022-09-18 06:13:00 [facility] BASIC METABOLIC PANEL 2022-09-18 06:13:00 [facility] CBC (HEMOGRAM ONLY) 2022-09-18 06:13:00 [facility] PHOSPHORUS 2022-09-18 06:13:00 [facility] POCT-GLUCOSE METER 2022-09-18 01:04:00 [facility] POCT-GLUCOSE METER 2022-09-17 21:10:00 [facility] POCT-GLUCOSE METER 2022-09-17 16:38:00 [facility] POCT-GLUCOSE METER 2022-09-17 11:00:00 Mari Watt [facility] POCT-GLUCOSE METER 2022-09-17 06:11:00 Hector Hernandez [facility] HIGH SENSITIVITY 2022-09-17 05:03:00 Edson [facility] ECG 12-LEAD 2022-09-17 04:56:19 Edson [facility] MAGNESIUM 2022-09-17 04:20:00 [facility] BASIC METABOLIC PANEL 2022-09-17 04:20:00 [facility] CBC (HEMOGRAM ONLY) 2022-09-17 04:20:00 [facility] PHOSPHORUS 2022-09-17 04:20:00 [facility] POCT-GLUCOSE METER 2022-09-16 21:17:00 Benito Pretty [facility] POCT-GLUCOSE METER 2022-09-16 16:49:00 Benito Pretty [facility] 2D ECHO W/ DOPPLER 2022-09-16 12:45:56 Michael Sharp [facility] (CW/PW/COLOR) [place] POCT-GLUCOSE METER 2022-09-16 11:03:00 Benito Pretty [facility] ECG 12-LEAD 2022-09-16 10:23:59 Syed Jerold [facility] POCT-GLUCOSE METER 2022-09-16 06:49:00 Alexey Berry [facility] MAGNESIUM 2022-09-16 02:21:00 [facility] BASIC METABOLIC PANEL 2022-09-16 02:21:00 [facility] CBC (HEMOGRAM ONLY) 2022-09-16 02:21:00 [facility] HEPATIC FUNCTION PANEL 2022-09-16 02:21:00 JamalAlexey Radha Rob [facility] PHOSPHORUS 2022-09-16 02:21:00 Sandra Marie [facility] POCT-GLUCOSE METER 2022-09-15 22:35:00 Benito Pretty I. [facility] SARS-COV2/RT-PCR ([facility] & 2022-09-15 17:49:00 Ritchie Graham [facility] REF LABS) [place] POCT-GLUCOSE METER 2022-09-15 16:13:00 Benito Pretty I. [facility] POCT-GLUCOSE METER 2022-09-15 11:17:00 Alexey Berry [facility] BASIC METABOLIC PANEL 2022-09-15 09:06:00 Gretel [facility] POCT-GLUCOSE METER 2022-09-15 07:37:00 Benito Pretty I. [facility] POCT-GLUCOSE METER 2022-09-15 06:15:00 Benito Pretty I. [facility] POCT-GLUCOSE METER 2022-09-15 05:40:00 Benito Pretty I. [facility] CBC W/PLT COUNT & AUTO 2022-09-15 05:38:00 [facility] CBC W/PLT COUNT & AUTO 2022-09-15 05:38:00 [facility] BASIC METABOLIC PANEL 2022-09-15 05:34:00 [facility] POCT-GLUCOSE METER 2022-09-15 03:37:00 Benito Pretty I. [facility] POCT-GLUCOSE METER 2022-09-15 01:53:00 Benito Pretty I. [facility] BASIC METABOLIC PANEL 2022-09-15 00:39:00 Pitnida [facility] POCT-GLUCOSE METER 2022-09-15 00:38:00 Benito Pretty I. [facility] POCT-GLUCOSE METER 2022-09-14 23:21:00 Benito Pretty I. [facility] POCT-GLUCOSE METER 2022-09-14 22:11:00 Benito Pretty I. [facility] BASIC METABOLIC PANEL 2022-09-14 20:53:00 Rosa M Majano [facility] POCT-GLUCOSE METER 2022-09-14 20:52:00 Benito Pretty I. [facility] POCT-GLUCOSE METER 2022-09-14 19:04:00 Benito Pretty I. [facility] POCT-GLUCOSE METER 2022-09-14 17:51:00 Benito Pretty I. [facility] POCT-GLUCOSE METER 2022-09-14 16:15:00 Benito Pretty I. [facility] BASIC METABOLIC PANEL 2022-09-14 15:19:00 [facility] PO[facility]-GLUCOSE METER 2022-09-14 14:33:00 Benito Pretty I. [facility] MR BRAIN WITH & WITHOUT 2022-09-14 14:13:00 Benito Pretty [facility] CONTRAST [place] POCT-GLUCOSE METER 2022-09-14 12:12:00 Benito Pretty I. [facility] POCT-GLUCOSE METER 2022-09-14 11:20:00 Benito Pretty I. [facility] BASIC METABOLIC PANEL 2022-09-14 11:15:00 Rosa M Majano [facility] HEMOGLOBIN A1C 2022-09-14 11:15:00 Brittani Manriquez [facility] POCT-GLUCOSE METER 2022-09-14 10:05:00 Benito Pretty I. [facility] POCT-GLUCOSE METER 2022-09-14 09:25:00 Benito Pretty CH, [facility] BASIC METABOLIC PANEL 2022-09-14 08:51:00 Pitmason [facility] POCT-GLUCOSE METER 2022-09-14 08:33:00 Benito Pretty [facility] POCT-GLUCOSE METER 2022-09-14 06:45:00 Benito Pretty [facility] POCT-GLUCOSE METER 2022-09-14 05:12:00 Benito Pretty [facility] KETONE, BLOOD 2022-09-14 05:04:00 [facility] ABORH, MANUAL 2022-09-14 05:03:00 Dipika Singh [facility] TYPE AND SCREEN, 2022-09-14 04:55:00 [facility] AUTOMATED Center RPR 2022-09-14 04:31:00 [facility] POCT-GLUCOSE METER 2022-09-14 04:27:00 Benito Pretty [facility] COMPREHENSIVE METABOLIC 2022-09-14 03:16:00 [facility] PANEL Center MAGNESIUM 2022-09-14 03:16:00 [facility] PHOSPHORUS 2022-09-14 03:16:00 [facility] TSH/FREE T4 IF INDICATED 2022-09-14 03:16:00 [facility] LIPID PANEL 2022-09-14 03:16:00 [facility] PROTHROMBIN TIME/INR 2022-09-14 03:16:00 [facility] APTT 2022-09-14 03:16:00 [facility] PROLACTIN 2022-09-14 03:16:00 [facility] D-DIMER 2022-09-14 03:16:00 [facility] CBC W/PLT COUNT & AUTO 2022-09-14 03:15:00 [facility] HEMOGLOBIN A1C 2022-09-14 03:15:00 [facility] LACTIC ACID, VENOUS 2022-09-14 03:15:00 [facility] BLOOD GAS, VENOUS 2022-09-14 03:15:00 [facility] CBC W/PLT COUNT & AUTO 2022-09-14 03:15:00 [facility] POCT-GLUCOSE METER 2022-09-14 02:31:00 Benito Pretty I. [facility] COLONOSCOPY (ENDO) 2022-05-14 15:39:47 [facility] ([facility]) 2022-05-14 15:39:47 [facility] COLONOSCOPY 2022-05-14 15:37:00 Monalisa Boudreaux [facility] POCT GLUCOSE(AGE 2022-05-14 14:56:00 [facility] POCT GLUCOSE(AGE 2022-05-14 14:56:00 [facility] >30DAYS) [facility] POCT GLUCOSE (AUTOMATED) 2022-05-14 14:54:00 Monalisa Boudreaux [facility] POCT GLUCOSE (AUTOMATED) 2022-05-14 14:54:00 Monalisa Boudreaux [facility] PATIENT QUESTIONNAIRE 2022-05-14 05:01:00 Doctor Unassigned, No [facility] Name [facility] EXTERNAL PROVIDER 2022-03-11 05:01:00 Doctor Unassigned, No [facility] EXTERNAL PROVIDER 2022-03-11 05:01:00 Doctor Unassigned, No [facility] RECORDS Name Medical Branch BI SCREENING 2022-02-12 13:53:00 Requisition, Paper [facility] TOMOSYNTHESIS BILATERAL Medical Branch ASSIGNMENT OF BENEFITS 2022-02-12 13:26:09 Doctor Unassigned, No [facility] Name [facility] URINALYSIS 2022-02-01 16:02:00 Iliana Chavez [facility] [place] LIPASE 2022-02-01 15:54:00 Iliana Chavez [facility] MAGNESIUM 2022-02-01 15:54:00 Iliana Chavez [facility] TROPONIN I 2022-02-01 15:54:00 Iliana Chavez [facility] COMP. METABOLIC PANEL 2022-02-01 15:54:00 Iliana Chavez [facility] ([id number]) Medical Branch CBC WITH DIFF 2022-02-01 15:54:00 Iliana Chavez [facility] CONSENT/REFUSAL FOR 2022-02-01 15:41:34 Doctor Unassigned, No [facility] DIAGNOSIS AND TREATMENT Name [facility] [place] DEXA AXIAL (HIP AND 2022-01-09 16:06:34 Requisition, Paper [facility] SPINE) Medical Branch ASSIGNMENT OF BENEFITS 2021-03-02 23:26:28 Doctor Unassigned, No [facility] Name [facility] Plan of Care Planned Activity Planned Date Details Comments Source Future Scheduled 2025-09-14 Lipid panel (procedure) [facility] Test 00:00:00 [code = 11415325] Medical Ce nter Future Scheduled 2025-09-14 Lipid panel (procedure) [facility] 00:00:00 [code = [id number]] Medical Ce nter Future Scheduled 2025-09-14 Lipid panel (procedure) [facility] 00:00:00 [code = [id number]] Medical Ce nter Future Scheduled 2025-09-14 Lipid panel (procedure) [facility] 00:00:00 [code = [id number]] Medical Ce nter Future Scheduled 2025-09-14 Lipid panel (procedure) [facility] 00:00:00 [code = [id number]] Medical Ce nter Future Scheduled 2025-09-14 Lipid panel (procedure) [facility] 00:00:00 [code = [id number]] Medical Ce nter Future Scheduled 2025-09-14 Lipid panel (procedure) [facility] 00:00:00 [code = [id number]] Medical Ce nter Future Scheduled 2025-09-14 Lipid panel (procedure) [facility] Test 00:00:00 [code = [id number]] Medical Ce nter Future Scheduled 2023-11-[address] [facility] 00:00:00 [facility] r Screening (12+) [code = Tobacco Cessation Counseling and Screening (12+)] Future Scheduled 2023-11-[address] [facility] 00:00:00 [facility] r Screening (12+) [code = Tobacco Cessation Counseling and Screening (12+)] Future Scheduled 2023-11-[address] [facility] 00:00:00 [facility] r Screening (12+) [code = Tobacco Cessation Counseling and Screening (12+)] Future Scheduled 2023-11-[address] [facility] 00:00:00 [facility] Cent[facility] r Screening (12+) [code = Tobacco Cessation Counseling and Screening (12+)] Future Scheduled 2023-11-[address] [facility] 00:00:00 [...] [facility] 00[facility]:00 measurement (procedure) [facility] [code = 50191949] Future Scheduled 2022-09-[address] [facility] 00:00:00 measurement (procedure) [facility] [code = 12806323] Future Scheduled 2022-09-[address] [facility]procedure[facility] [code = 42092800] Future Scheduled 2022-09-[address] [facility] 00[facility]00 [facility] (procedure[facility] [code = 06826398] Future Scheduled 2022-09-[address] [facility]00 [facility] (procedure[facility] [code = 99744166] Future Scheduled 2022-09-[address] [facility] 00[facility]00 [facility] (procedure[facility] [code = 29287021] Future Scheduled 2022-09-[address] [facility] 00[facility]00 [facility] (procedure[facility] [code = 76505666] Future Scheduled 2022-09-[address] [facility] 00:[facility]:00 measurement (procedure) [facility] [code = 51895193] Future Scheduled 2022-05-22 INFLUENZA VACCINE (#1) C [...] - Booster for [employer] series)] Future Scheduled 2021-11-03 COVID-19 VACCINE (4 [facility] series) [code = COVID-19 VACCINE (4 - Booster for [facility] series)] Future Scheduled 2021-11-03 COVID-19 VACCINE (4 - [facility] series) [code = COVID-19 VACCINE (4 - Booster for [facility] series)] Future Scheduled 2021-11-03 COVID-19 VACCINE (4 - [facility] series) [code = COVID-19 VACCINE (4 - Booster for [facility] series)] Future Scheduled 2021-11-03 COVID-19 VACCINE (4 - [facility] series) [code = COVID-19 VACCINE (4 - Booster for [facility] series)] Future Scheduled 2021-11-03 COVID-19 VACCINE (4 - [facility] [...] breast Medical C enter (procedure) [code = 594520904] Future Scheduled 2019-07-20 Screening for malignant [facility] 00:00:00 neoplasm of breast Medical C enter (procedure) [code = 119155387] Future Scheduled 2019-07-20 Screening for malignant [facility] 00:00:00 neoplasm of breast Medical C enter (procedure) [code = 189812168] Future Scheduled 2019-07-20 Screening for malignant [facility] 00:00:00 neoplasm of breast Medical C enter (procedure) [code = 308222485] Future Scheduled 2019-07-20 Screening for malignant [facility] 00:00:00 neoplasm of breast Medical C enter (procedure) [code = 901045480] Future Scheduled 2019-07-20 Screening for malignant [facility] 00:00:00 neoplasm of breast Medical C enter (procedure) [code = 955760597] Future Scheduled 2019-07-20 Screening for malignant [facility] 00:00:00 neoplasm of breast Medical C enter (procedure) [code = 756129347] Future Scheduled 2019-07-20 Screening for malignant [facility] 00:00:00 neoplasm of breast Medical C enter (procedure) [code = 671487803] Future Scheduled 2007 SHINGLES VACCINES ([address] [facility] 00:00:00 2) [code = SHINGLES Medical Center VACCINES (1 of 2)] Future Scheduled 2007 SHINGLES VACCINES ([address] [facility] 00:00:00 2) [code = SHINGLES Medical Center VACCINES (1 of 2)] Future Scheduled 2007 SHINGLES VACCINES ([address] [facility] 00:00:00 2) [code = SHINGLES Medical Center VACCINES (1 of 2)] Future Scheduled 2007 SHINGLES VACCINES ([address] [facility] 00:00:00 2) [facility] [place] [facility] Future Scheduled 2007 SHINGLES VACCINES ([address] [facility] 00:00:00 2) [[facility] [place] [facility])] Future Scheduled 2007 SHINGLES VACCINES ([address] [facility] 00:00[facility]00 [facility] Future Scheduled 2007 SHINGLES VACCINES ([address] [facility] 00:00:00 2) [[facility] [place] [facility])] Future Scheduled 2007 SHINGLES VACCINES ([address] [facility] 00:00:00 2) [facility] Future Scheduled 1978 Screening for malignant [facility] 00:00:00 neoplasm of cervix Medical C enter (procedure) [code = 550085151] Future Scheduled 1978 Screening for malignant [facility] 00:00:00 neoplasm of cervix Medical C enter (procedure) [code = 136509501] Future Scheduled 1978 Screening for malignant [facility] 00:00:00 neoplasm of cervix Medical C enter (procedure) [code = 493732563] Future Scheduled 1978 Screening for malignant [facility] 00:00:00 neoplasm of cervix Medical C enter (procedure) [code = 585247640] Future Scheduled 1978 Screening for malignant [facility] 00:00:00 neoplasm of cervix Medical C enter (procedure) [code = 852804476] Future Scheduled 1978 Screening for malignant [facility] 00:00:00 neoplasm of cervix Medical C enter (procedure) [code = 377921932] Future Scheduled 1978 Screening for malignant [facility] 00:00:00 neoplasm of cervix Medical C enter (procedure) [code = 513074284] Future Scheduled 1978 Screening for malignant [facility] 00:00:00 neoplasm of cervix Medical C enter (procedure) [code = 130771422] Future Scheduled 1976-01-03 DTAP/TDAP/TD VACCINES [facility] [...] 00:00:00 examination Medical Center (regime/therapy) [code = 216862645] Future Scheduled 1967 Urine screening for [facility] 00:00:00 protein (procedure) Medical Center [code = 921772165] Future Scheduled 1967 DIABETIC EYE EXAM [code [facility] 00:00:00 = DIABETIC EYE EXAM] Medical Center Future Scheduled [address] [facility] examination Medical Center (regime/therapy) [code = 019429015] Future Scheduled 1967 Urine screening for [facility] 00:00:00 protein (procedure) Medical Center [code = 743561088] Future Scheduled 1967 DIABETIC EYE EXAM [code [facility] 00:00:00 = DIABETIC EYE EXAM] Medical Center Future Scheduled [address] [facility] 00:[facility]00 examination Medical Center (regime/therapy) [code = 788270754] Future Scheduled 1967 Urine screening for [facility] 00:00:00 protein (procedure) Medical Center [code = 088792897] Future Scheduled 1967 DIABETIC EYE EXAM [code [facility] 00:00:00 = DIABETIC EYE EXAM] Medical Center Future Scheduled [address] [facility] 00:[facility]:00 examination Medical Center (regime/therapy) [code = 990304920] Future Scheduled 1967 Urine screening for [facility] 00:00:00 protein (procedure) Medical Center [code = 349960401] Future Scheduled 1967 DIABETIC EYE EXAM [code [facility] 00:00:00 = DIABETIC EYE EXAM] Medical Center Future Scheduled [address] [facility] 00:[facility]:00 examination Medical Center (regime/therapy) [code = 056147796] Future Scheduled 1967 Urine screening for [facility] 00:00:00 protein (procedure) Medical Center [code = 141039129] Future Scheduled 1967 DIABETIC EYE EXAM [code [facility] 00:00:00 = DIABETIC EYE EXAM] Medical Center Future Scheduled [address] [facility] 00:00:00 examination Medical Center (regime/therapy) [code = 031116146] Future Scheduled 1967 Urine screening for [facility] 00:00:00 protein (procedure) Medical Center [code = 018384639] Future Scheduled 1967 DIABETIC EYE EXAM [code [facility] 00:00:00 = DIABETIC EYE EXAM] Medical Center Future Scheduled [address] [facility] 00:[facility]:00 examination Medical Center (regime/therapy) [code = 446452023] Future Scheduled 1967 Urine screening for [facility] 00:00:00 protein (procedure) Medical Center [code = 446357153] Future Scheduled 1967 DIABETIC EYE EXAM [code [facility] 00:00:00 = DIABETIC EYE EXAM] Medical Center Future Scheduled [address] [facility] 00:[facility]:00 examination Medical Center (regime/therapy) [code = 662561757] Future Scheduled 1967 Urine screening for [facility] 00:00:00 protein (procedure) Medical Center [code = 838960119] Future Scheduled 1957 CT Colonography (combo) [facility] 00:00:00 [code = CT [facility] ([facility] Future Scheduled 1957 Screening for malignant [facility] 00:00:00 neoplasm of colon Medical Ce nter (procedure) [code = 613003232] Future Scheduled 1957 Screening for malignant [facility] 00:00:00 neoplasm of colon Medical Ce nter (procedure) [code = 646786047] Future Scheduled 1957 DXA SCAN [code = DXA [facility] 00:00:00 SCAN] [facility] Future Scheduled 1957 Screening for malignant [facility] 00:00:00 neoplasm of colon Medical Ce nter (procedure) [code = 632374196] Future Scheduled 1957 Screening for malignant [facility] 00:00:00 neoplasm of colon Medical Ce nter (procedure) [code = 453558393] Future Scheduled 1957 Sigmoidoscopy [code = [facility]] [facility] Future Scheduled 1957 CT Colonography (combo) [facility] 00:00:00 [code = CT Colonography [facility] (combo)] Future Scheduled 1957 Screening for malignant [facility] 00:00:00 neoplasm of colon Medical Ce nter (procedure) [code = 089804700] Future Scheduled 1957 Screening for malignant [facility] 00:00:00 neoplasm of colon Medical Ce nter (procedure) [code = 063478012] Future Scheduled 1957 DXA SCAN [code = DXA [facility] 00:00:00 SCAN] [facility] Future Scheduled 1957 Screening for malignant [facility] 00:00:00 neoplasm of colon Medical Ce nter (procedure) [code = 538042755] Future Scheduled 1957 Screening for malignant [facility] 00:00:00 neoplasm of colon Medical Ce nter (procedure) [code = 111707365] Future Scheduled 1957 Sigmoidoscopy [code = [facility] S[facility]] [facility] Future Scheduled 1957 CT Colonography (combo) [facility] 00:00:00 [code = CT Colonography [facility] (combo)] Future Scheduled 1957 Screening for malignant [facility] 00:00:00 neoplasm of colon Medical Ce nter (procedure) [code = 407485061] Future Scheduled 1957 Screening for malignant [facility] 00:00:00 neoplasm of colon Medical Ce nter (procedure) [code = 501142031] Future Scheduled 1957 DXA SCAN [code = DXA [facility] 00:00:00 SCAN] [facility] Future Scheduled 1957 Screening for malignant [facility] 00:00:00 neoplasm of colon Medical Ce nter (procedure) [code = 285602209] Future Scheduled 1957 Screening for malignant [facility] 00:00:00 neoplasm of colon Medical Ce nter (procedure) [code = 290588820] Future Scheduled 1957 Sigmoidoscopy [code = [facility] ([facility]bo[facility] 00:00:00 [code = CT Colonography [facility] (combo)] Future Scheduled 1957 Screening for malignant [facility] 00:00:00 neoplasm of colon Medical Ce nter (procedure) [code = 894041121] Future Scheduled 1957 Screening for malignant [facility] 00:00:00 neoplasm of colon Medical Ce nter (procedure) [code = 859418883] Future Scheduled 1957 DXA SCAN [code = DXA [facility] 00:00:00 SCAN] [facility] Future Scheduled 1957 Screening for malignant [facility] 00:00:00 neoplasm of colon Medical Ce nter (procedure) [code = 270205929] Future Scheduled 1957 Screening for malignant [facility] 00:00:00 neoplasm of colon Medical Ce nter (procedure) [code = 440051628] Future Scheduled 1957 Sigmoidoscopy [code = [facility]oscopy] [facility] Future Scheduled 1957 CT Colonography (combo) [facility] 00:00:00 [code = CT Colonography [facility] (combo)] Future Scheduled 1957 Screening for malignant [facility] 00:00:00 neoplasm of colon Medical Ce nter (procedure) [code = 259905574] Future Scheduled 1957 Screening for malignant [facility] 00:00:00 neoplasm of colon Medical Ce nter (procedure) [code = 420080632] Future Scheduled 1957 DXA SCAN [code = DXA [facility] 00:00:00 SCAN] [facility] Future Scheduled 1957 Screening for malignant [facility] 00:00:00 neoplasm of colon Medical Ce nter (procedure) [code = 359222088] Future Scheduled 1957 Screening for malignant [facility] 00:00:00 neoplasm of colon Medical Ce nter (procedure) [code = 626516697] Future Scheduled 1957 Sigmoidoscopy [code = [facility] 1957 CT Colonography (combo) [facility] 00:00:00 [code = CT Colonography [facility] (combo)] Future Scheduled 1957 Screening for malignant [facility] 00:00:00 neoplasm of colon Medical Ce nter (procedure) [code = 049920601] Future Scheduled 1957 Screening for malignant [facility] 00:00:00 neoplasm of colon Medical Ce nter (procedure) [code = 729267556] Future Scheduled 1957 DXA SCAN [code = DXA [facility] 00:00:00 SCAN] [facility] Future Scheduled 1957 Screening for malignant [facility] 00:00:00 neoplasm of colon Medical Ce nter (procedure) [code = 430603012] Future Scheduled 1957 Screening for malignant [facility] 00:00:00 neoplasm of colon Medical Ce nter (procedure) [code = 371648533] Future Scheduled 1957 Sigmoidoscopy [code = [facility]] [facility] Future Scheduled 1957 CT Colonography (combo) [facility] 00:00:00 [code = CT Colonography [facility] (combo)] Future Scheduled 1957 Screening for malignant [facility] 00:00:00 neoplasm of colon Medical Ce nter (procedure) [code = 797579691] Future Scheduled 1957 Screening for malignant [facility] 00:00:00 neoplasm of colon Medical Ce nter (procedure) [code = 729223229] Future Scheduled 1957 DXA SCAN [code = DXA [facility] 00:00:00 SCAN] [facility] Future Scheduled 1957 Screening for malignant [facility] 00:00:00 neoplasm of colon Medical Ce nter (procedure) [code = 046500080] Future Scheduled 1957 Screening for malignant [facility] 00:00:00 neoplasm of colon Medical Ce nter (procedure) [code = 396941976] Future Scheduled 1957 Sigmoidoscopy [code = [facility]oscopy] [facility] Future Scheduled 1957 CT Colonography (combo) [facility] 00:00:00 [code = CT Colonography Medi [facility] (combo)] Future Scheduled 1957 Screening for malignant [facility] 00:00:00 neoplasm of colon Medical Ce nter (procedure) [code = 624031491] Future Scheduled 1957 Screening for malignant [facility] 00:00:00 neoplasm of colon Medical Ce nter (procedure) [code = 744029449] Future Scheduled 1957 DXA SCAN [code = DXA [facility] 00:00:00 SCAN] [facility] Future Scheduled 1957 Screening for malignant [facility] 00:00:00 neoplasm of colon Medical Ce nter (procedure) [code = 953293832] Future Scheduled 1957 Screening for malignant [facility] 00:00:00 neoplasm of colon Medical Ce nter (procedure) [code = 222951191] Future Scheduled 1957 Sigmoidoscopy [code = [facility] S[facility]oscopy] [facility] Goal Plan of Care Note [code = 48451-8] Goal Plan of Care Note [code = 08207-6] Goal Plan of Care Note [code = 75241-8] Goal Plan of Care Note [code = 53166-6] Goal Plan of Care Note [code = 49840-6] Goal Plan of Care Note [code = 84217-6] Goal Plan of Care Note [code = 39928-5] Goal Plan of Care Note [code = 11724-3] Goal Plan of Care Note [code = 45079-6] Goal Plan of Care Note [code = 50544-2] Goal Plan of Care Note [code = 82033-5] Goal Plan of Care Note [code = 44913-3] Goal Plan of Care Note [code = 96988-6] Goal Plan of Care Note [code = 20932-7] Goal Plan of Care Note [code = 79009-2] Goal Plan of Care Note [code = 34235-8] Goal Plan of Care Note [code = 93847-7] Goal Plan of Care Note [code = 66092-6] Goal Plan of Care Note [code = 06035-0] Goal Plan of Care Note [code = 58820-8] Goal Plan of Care Note [code = 39711-8] Goal Plan of Care Note [code = 44659-2] Goal Plan of Care Note [code = 87872-1] Goal Plan of Care Note [code = 78303-2] Goal Plan of Care Note [code = 27063-7] Goal Plan of Care Note [code = 98176-7] Goal Plan of Care Note [code = 73560-4] Goal Plan of Care Note [code = 36738-6] Goal Plan of Care Note [code = 37243-8] Goal Plan of Care Note [code = 51340-3] Goal Plan of Care Note [code = 41216-0] Goal Plan of Care Note [code = 18359-3] Goal Plan of Care Note [code = 26917-2] Goal Plan of Care Note [code = 12132-9] Goal Plan of Care Note [code = 33461-3] Goal Plan of Care Note [code = 88501-9] Goal Plan of Care Note [code = 97431-5] Goal Plan of Care Note [code = 90236-8] Goal Plan of Care Note [code = 01446-2] Goal Plan of Care Note [code = 18685-8] Goal Plan of Care Note [code = 23869-5] Goal Plan of Care Note [code = 14237-6] Goal Plan of Care Note [code = 65291-2] Goal Plan of Care Note [code = 68894-3] Goal Plan of Care Note [code = 85798-3] Goal Plan of Care Note [code = 88937-9] Goal Plan of Care Note [code = 05946-5] Goal Plan of Care Note [code = 65515-6] Goal Plan of Care Note [code = 63931-8] Goal Plan of Care Note [code = 94018-4] Goal Plan of Care Note [code = 91307-8] Goal Plan of Care Note [code = 65544-9] Goal Plan of Care Note [code = 24336-9] Goal Plan of Care Note [code = 26660-8] Goal Plan of Care Note [code = 04527-4] Goal Plan of Care Note [code = 44092-5] Goal Plan of Care Note [code = 12467-0] Goal Plan of Care Note [code = 50493-4] Goal Plan of Care Note [code = 38352-0] Goal Plan of Care Note [code = 65419-5] Goal Plan of Care Note [code = 97191-2] Goal Plan of Care Note [code = 65535-7] Goal Plan of Care Note [code = 41372-0] Goal Plan of Care Note [code = 26197-2] Goal Plan of Care Note [code = 26696-0] Goal Plan of Care Note [code = 63955-9] Goal Plan of Care Note [code = 13578-6] Goal Plan of Care Note [code = 84585-5] Goal Plan of Care Note [code = 56780-5] Goal Plan of Care Note [code = 75442-2] Goal Plan of Care Note [code = 38518-8] Goal Plan of Care Note [code = 21870-9] Goal Plan of Care Note [code = 47147-4] Goal Plan of Care Note [code = 03084-0] Goal Plan of Care Note [code = 85090-6] Goal Plan of Care Note [code = 13595-3] Goal Plan of Care Note [code = 72759-0] Goal Plan of Care Note [code = 95682-9] Goal Plan of Care Note [code = 52972-3] Goal Plan of Care Note [code = 00316-4] Goal Plan of Care Note [code = 57145-2] Goal Plan of Care Note [code = 10785-3] Goal Plan of Care Note [code = 34072-4] Goal Plan of Care Note [code = 74075-8] Goal Plan of Care Note [code = 61683-8] Goal Plan of Care Note [code = 21820-3] Goal Plan of Care Note [code = 61529-5] Goal Plan of Care Note [code = 12736-3] Goal Plan of Care Note [code = 25902-7] Goal Plan of Care Note [code = 22533-4] Goal Plan of Care Note [code = 22177-1] Goal Plan of Care Note [code = 45169-3] Goal Plan of Care Note [code = 23079-3] Goal Plan of Care Note [code = 01421-2] Goal Plan of Care Note [code = 80960-4] Goal Plan of Care Note [code = 62181-5] Goal Plan of Care Note [code = 61828-2] Goal Plan of Care Note [code = 26326-4] Goal Plan of Care Note [code = 38644-1] Goal Plan of Care Note [code = 06845-1] Goal Plan of Care Note [code = 60097-7] Goal Plan of Care Note [code = 89000-9] Encounters Start End Encounter Admission Attending Care Care Encounter Source Date/Time Date/Time Type Type Clinicians Facility Department ID 2023-03-16 Outpatient [facility] [id number] [place] 07:18:18 [id number] [facility] 2023-03-10 Outpatient [facility] [id number] [place] 09:17:47 [id number] [facility] 2023-03-06 Outpatient [facility] [id number] [place] 11:13:44 [id number] [facility] 2023-02-02 Outpatient [facility] [id number] [place] 06:16:41 [id number] [facility] 2023-01-30 Outpatient [facility] [id number] [place] 08:48:14 [id number] [facility] 2022-12-29 Outpatient [facility] Surgery [id number] SLE 09:59:33 2022-12-22 Outpatient [facility] [id number] [place] 11:27:50 [id number] [facility] 2022-12-01 Outpatient [facility] [id number] [place] 10:05:10 [id number] [facility] 2022-11-21 Inpatient PHYSICIAN, [address] 10:58:05 NON 2022-11-11 Outpatient [facility] [id number] [place] 09:49:26 [id number] [facility] 2022-11-10 Outpatient [facility] [id number] [place] 11:23:34 [id number] [facility] 2023-03-13 2023-03-14 Outpatient [facility] TR BT- [id number] [facility]oria 14:32:00 04:59:00 Adult BI 03 l (ABIR) [place] 2023-03-13 2023-03-14 Outpatient OBIE MARK BT- [id number] [facility] 14:32:00 04:59:00 Adult BI 03 l (ABIR) [place] 2023-03-13 2023-03-13 Outpatient Cris, DEATIRR MHTIRR [id number] 09:32:00 23:59:00 Abana 03 [facility] 2023-03-13 2023-03-13 Outpatient DEA LynchTIRR MHTIRR [id number] 09:32:00 23:59:00 Abana 03 [facility] 2023-03-13 2023-03-13 External Cris, EXT MSRDP [id number] [place] 09:45:00 10:15:[facility] [id number] [facility] [id number] 2023-03-11 2023-03-12 Outpatient MHSUDEEP TR Pain [id number] [facility]oria 15:37:00 04:59:00 Management 04 l [facility] [place] (PM) 2023-03-11 2023-03-12 Outpatient OBIE MARK Pain [id number] [facility] 15:37:00 04:59:00 Management 04 l [facility] [place] (PMGR) 2023-03-11 2023-03-11 Outpatient SIDNEY Jacobo MHTIRR [id number] 10:37:00 23:59:00 Jignesh 04 2023-03-11 2023-03-11 Outpatient SIDNEY Jacobo MHTIRR [id number] 10:37:00 23:59:00 Jignesh 04 2023-02-22 2023-02-23 Between [facility] TIRR [id number] Memoria 14:51:30 14:51:30 Visit [facility] Lou Johnson 2023-02-22 2023-02-23 Between [facility] TIRR [id number] Memoria 14:51:30 14:51:30 [place] [address] elise Johnson 2023-02-22 2023-02-23 Outpatient MHTIRR MHTIRR [id number] 09:51:30 09:51:30 07 2023-02-22 2023-02-23 Outpatient MHTIRR MHTIRR [id number] 09:51:30 09:51:30 07 2023-02-17 2023-02-17 Outpatient [facility] [id number] [facility] 00:00:00 00:00:00 [facility] 2023-01-09 2023-01-09 Outpatient SHERIN RUBIO SLEVíctor [facility] [id number] [facility] 00:00:00 00:00:00 KAYLEE 2023-01-08 2023-01-08 Outpatient SHERIN RUBIO [facility] [id number] [facility] 00:00:00 00:00:00 KAYLEE 2023 2023-01-03 Between [facility] TIRR [id number] Memoria 18:57:58 18:57:58 [place] [address] elise Johnson 2023 2023-01-03 Between [facility] TIRR [id number] Memoria 18:57:58 18:57:58 Visit [facility] Denice Johnson 2023 2023-01-03 Outpatient MHTIRR MHTIRR [id number] 13:57:58 13:57:58 06 2023 2023-01-03 Outpatient MHTIRR MHTIRR [id number] 13:57:58 13:57:58 06 2022-12-31 2022-12-31 Outpatient ROCIO LEROY [facility] [id number] [facility] 09:29:14 23:59:00 KAYLEE 2022-12-31 2022-12-31 Outpatient EL SLE[facility] [id number] [facility] 09:24:50 09:24:50 2022-12-16 2022-12-16 Outpatient SFA SFA [id number] Romaine 10:32:38 10:32:38 [id number] Yonatan Perez 2022-12-15 2022-12-15 Outpatient SFA SFA [id number] Romaine 11:01:44 11:01:44 0327 Yonatan Perez 2022-11-22 2022-12-05 Inpatient MHIE TIRR [id number] [facility]oria 02:17:00 16:00:00 [facility] 02 elise Johnson 2022-11-22 2022-12-05 Inpatient [facility] T[facility] [id number] [facility]oria 02:17:00 16:00:00 [facility] 02 elise Johnson 2022-11-22 2022-12-05 Inpatient [facility]IE TIRR [id number] [facility]oria 02:17:00 16:00:00 [facility] 02 elise Johnson 2022-11-21 2022-12-05 Outpatient Cris, MHTIRR MHTIRR [id number] 20:17:00 11:00:00 Abana Randa [place]ford 2022-11-21 2022-12-05 Outpatient Cris, MHTIRR MHTIRR [id number] 20:17:00 11:00:00 Abana 02 Isatu 2022-11-13 2022-11-21 Inpatient ER [facility] Emergency [id number] SLE 20:15:00 19:57:00 YANA 2022-11-13 2022-11-21 Hospital ER Carolyn Parish [facility] [id number] [facility] 20:15:00 19:57:00 [facility]counter [facility] 2022-11-13 2022-11-13 Travel [facility] [id number] [facility] 00:[facility] 00:00:00 [facility] 2022-10-29 2022-11-06 Inpatient ER [facility] General Med 20 [id number] SLE 01:30:00 16:15:00 [facility] 2022-10-29 2022-10-[address] [facility] [id number] [facility] 13:35:00 17:20:00 Event Ton Khan Kurt [facility] 2022-10-29 2022-10-29 Surgery Connors, [facility] [id number] 13:00:00 16:13:00 [facility] 2022-10-29 2022-10-[address] [facility] [id number] 00:00:00 00:00:00 Only [facility] 2022-10-20 2022-10-20 Outpatient SFA [facility] [id number] Romaine 13:17:07 13:17:07 0130 F Chris 2022-09-30 2022-09-30 Outpatient [id number]- [id number] cc [id number] 00:00:00 00:00:00 Visit el12-2981 m83-1726-q -r222-5rh 689-4ba9a3 [id number] [id number] 2022-09-14 2022-09-25 Inpatient ER [facility] Neuro ICU [id number] SLE 01:38:00 17:51:00 EDE 2022-09-14 2022-09-25 Hospital ER BeckiejoebetonadyaBenito I. [facility] [id number] 01:38:00 17:51:00 Encounter [facility]ey [place] [facility] 2022-09-21 2022-09-[address] [facility] [id number] 08:36:00 12:42:00 Event Christine Escoto [facility] 2022-09-21 2022-09-21 Surgery Connors, [facility] [id number] 08:00:00 11:13:00 [facility] 2022-09-15 2022-09-15 Travel [facility] [id number] [facility] 00:00:00 00:00:00 [facility] 2022-08-11 2022-08-11 Outpatient SFA [facility] [id number] Romaine 11:24:30 11:24:30 1121 F Chris 2022-08-11 2022-08-11 Outpatient [id number] 00:00:00 00:00:00 Visit 19bb-4201 9bb-4201-a -w602-796 671-268a4b j9rr8p0t5 b2b9c6 2022-07-09 2022-07-09 Outpatient SFA [facility] [id number] Romaine 16:53:46 16:53:46 1019 F Chris 2022-07-09 2022-07-09 Outpatient [id number] [id number] 00:00:00 00:00:00 Visit 34u9-37ru 9i2-35xd-4 -7tw4-c00 aa3-c45a4e [id number] 955deb 2022-05-14 2022-05-14 Outpatient R [facility] [id number] Univers 09:17:00 12:07:00 MONALISA Mcdonald o f [facility] 2022-05-14 2022-05-14 [facility] 1.2.840.114 [id number] Univers 09:17:00 12:07:00 Encounter Monalisa mcdonald 350.1.13.10 it[place] [id number] [facility] [address] 2022-05-14 2022-05-14 Surgery [facility] 1.2.840.114 [id number] Univers 10:17:00 10:59:00 Monalisa mcdonald 350.1.13.10 it[place] of [place]ICAL [id number] [facility] [address] 2022-05-14 2022-05-14 Orders Doctor ROBERTO 1.2.840.114 [id number] Univers 00:00:00 00:00:00 Only Unassigned, TANYA 350.1.13.10 ity of [place] [facility] 4.2.7.2.686 Jf as [id number] [facility] [address] 2022-04-22 2022-04-22 Outpatient [id number] 00:00:00 00:00:00 Visit 7409-4f2c 409-4f2c-a -j98o-iz2 11f-ad4d66 [id number] 7e033z 2022-02-12 2022-02-12 Hospital Radiology [facility] 1.2.840.114 [id number] Univers 08:26:24 23:59:00 Encounter MARY 350.1.13.10 ity [facility] 4.2.7.2.686 [facility] [id number] [facility] [address] 2022-02-12 2022-02-12 Outpatient R RADIOLOGY [facility] [id number] Univers 08:26:24 23:59:00 ity of [facility] 2022-02-12 2022-02-12 Orders Doctor GROVER 1.2.840.114 [id number] Univers 00:00:00 00:00:00 Only Unassigned, TANYA 350.1.13.10 ity of [place] [facility] 4.2.7.2.686 Jf as [id number] [address] 2022-02-01 2022-02-01 Emergency [facility] [id number] Univers 10:43:00 13:04:00 ILIANA herrera [facility] 2022-02-01 2022-02-01 [facility] 1.2.840.114 [id number] Univers 10:43:00 13:04:00 Iliana HERNANDEZ 350.1.13.10 ity [facility] 4.2.7.2.686 [facility] [id number] [facility] [address] 2022-01-09 2022-01-09 Outpatient R UNKNOWN, [facility] [id number] Univers 10:37:05 23:59:00 ATTENDING ity of [facility] 2022-01-09 2022-01-09 Hospital Unknown, [facility] [id number] Univers 10:37:05 23:59:00 Encounter Attending MARY 350.1.13.10 [facility] 4.2.[place].2.[place] [id number] [facility] [address] 2021-03-02 2021-03-02 Urgent Provider, [facility] 1.2.840.114 [id number] Univers 18:28:27 19:11:42 Care N[facility] 350.1.13.10 ity of [place] 4.2.7.2.686 Jf as Professio [phone] [facility] [address] 2021-03-02 2021-03-02 Outpatient R JACQUELINE [facility] [id number] Univers 18:00:00 18:00:00 [place] ity [facility] 2021-03-02 2021-03-02 Orders Doctor GROVER 1.2.840.114 [id number] Univers 00:00:00 00:00:00 Only Unassigned, TANYA 350.1.13.10 ity of [place] [facility] 4.2.7.2.686 Jf as [phone] [facility] [address] Results Test Description Test Time Test Comments Results Result Sourc e Comments KARTHIK, JIMENA OF 2022-12-31 Please call the TUNNELED CVC W/O 15:14:00 patient's PORT daughter [phone] to [facility] - schedule removal MEDICAL CENTERName: bobby. Thank TIM VIDAL.Contact BRENDA MITCHELL: nursing for [facility] 1955 Sex: ID service at [phone] with additional questions.Reason FINAL REPORT for Exam:->will PATIENT ID: complete home IV [id number] Right antibiotics tunneled catheter 12/26/22 - needs removal. History: catheter removed Completion of IV antibiotics. Modality: None. Sedation: None. Plating Tank Operator: Elina Bailey PA-C Professor Of Biblical Studies: None. Approach: Right anterior upper chest. Estimated blood loss: < 5 cc. Specimen: None. Technique: The procedure including risks and benefits were explained to the patient, who expressed understanding. After informed written consent was obtained, the patient's right anterior upper chest region was prepped and draped in the usual sterile fashion. The skin was anesthetized with lidocaine. The sutures were cut and the catheter was removed with blunt dissection. Hemostasis was obtained with manual compression. The patient tolerated the procedure well and left the department in the same condition. Impression: Successful, uncomplicated removal of a right tunneled venous catheter. Signed: Geraldine Jay MDReport Verified Date/Time: 12/31/2022 15:14:56 Reading Location: [address] Ultrasound Reading Room HROMBIN TIME/INR 2022-12-31 10:02:09 Test Item Value Reference Range Interpretation Comme nts PROTIME (BEAKER) (test code = 759) 15.0 seconds 11.9-14.2 H INR (BEAKER) (test code = 370) 1.25 <=5.90 RECOMMENDED COUMADIN/WARFARIN INR THERAPY RANGESSTANDARD DOSE: 2.0 - 3.0 Includes: PROPHYLAXIS for venous thrombosis, systemic embolization; TREATMENT for venous thrombosis and/or pulmonary embolus.HIGH RISK: Target INR is 2.5-3.5 for patients with mechanical heart valves.CBC W/PLT COUNT & AUTO [id number] 09:46:23 Test Item Value Reference Range Interpretation Comments WHITE BLOOD CELL COUNT (BEAKER) 7.0 K/ L 3.5-10.5 (test code = 775) RED BLOOD CELL COUNT (BEAKER) 3.67 M/ L 3.93-5.22 L (test code = 761) HEMOGLOBIN (BEAKER) (test code = 9.8 GM/DL 11.2-15.7 L 410) HEMATOCRIT (BEAKER) (test code = 29.4 % 34.1-44.9 L 411) MEAN CORPUSCULAR VOLUME (BEAKER) 80 fL 79-95 (test code = 753) MEAN CORPUSCULAR HEMOGLOBIN 26.7 pg 25.6-32.2 (BEAKER) (test code = 751) MEAN CORPUSCULAR HEMOGLOBIN CONC 33.3 GM/DL 32.2-35.5 (BEAKER) (test code = 752) RED CELL DISTRIBUTION WIDTH 15.2 % 11.7-14.4 H (BEAKER) (test code = 412) PLATELET COUNT (BEAKER) (test 232 K/CU MM 150-450 code = 756) MEAN PLATELET VOLUME (BEAKER) 8.4 fL 9.4-12.3 L (test code = 754) NUCLEATED RED BLOOD CELLS 0 /100 WBC 0-0 (BEAKER) (test code = 413) NEUTROPHILS RELATIVE PERCENT 70 % (BEAKER) (test code = 429) LYMPHOCYTES RELATIVE PERCENT 19 % (BEAKER) (test code = 430) MONOCYTES RELATIVE PERCENT 7 % (BEAKER) (test code = 431) EOSINOPHILS RELATIVE PERCENT 4 % (BEAKER) (test code = 432) BASOPHILS RELATIVE PERCENT 0 % (BEAKER) (test code = 437) NEUTROPHILS ABSOLUTE COUNT 4.88 K/ L 1.56-6.13 (BEAKER) (test code = 670) LYMPHOCYTES ABSOLUTE COUNT 1.32 K/ L 1.18-3.74 (BEAKER) (test code = 414) MONOCYTES ABSOLUTE COUNT (BEAKER) 0.47 K/ L 0.24-0.36 H (test code = 415) EOSINOPHILS ABSOLUTE COUNT 0.24 K/ L 0.04-0.36 (BEAKER) (test code = 416) BASOPHILS ABSOLUTE COUNT (BEAKER) 0.03 K/ L 0.01-0.08 (test code = 417) IMMATURE GRANULOCYTES-RELATIVE 0.10 % 0.00-1.00 PERCENT (BEAKER) (test code = 2801) AFB CULTURE + SMEAR (NON-SPUTUM)2022-12-18 08:43:43 Test Item Value Reference Range Interpretation Comments CULTURE (BEAKER) (test No acid-fast bacilli code = 1095) isolated in 42 days AFB SMEAR (BEAKER) No acid fast bacilli (test code = 994) seen AFB CULTURE + SMEAR (NON-SPUTUM)2022-12-18 08:42:23 Test Item Value Reference Range Interpretation Comments CULTURE (BEAKER) (test No acid-fast bacilli code = 1095) isolated in 42 days AFB SMEAR (BEAKER) No acid fast bacilli (test code = 994) seen AFB CULTURE + SMEAR (NON-SPUTUM)2022-12-18 08:41:52 Test Item Value Reference Range Interpretation Comments CULTURE (BEAKER) (test No acid-fast bacilli code = 1095) isolated in 42 days AFB SMEAR (BEAKER) No acid fast bacilli (test code = 994) seen AFB CULTURE + SMEAR (NON-SPUTUM)2022-12-18 08:41:11 Test Item Value Reference Range Interpretation Comments CULTURE (BEAKER) (test No acid-fast bacilli code = 1095) isolated in 42 days AFB SMEAR (BEAKER) No acid fast bacilli (test code = 994) seen AFB CULTURE + SMEAR (NON-SPUTUM)2022-12-18 08:40:34 Test Item Value Reference Range Interpretation Comments CULTURE (BEAKER) (test No acid-fast bacilli code = 1095) isolated in 42 days AFB SMEAR (BEAKER) No acid fast bacilli (test code = 994) seen POINT OF [id number] 12:53:00 Test Item Value Reference Range Interpretation Comments Glucose POC (test code = Glucose POC) 165 [address] 710953-03-17 12:53:00 Test Item Value Reference Range Interpretation Comments Glucose POC (test code = Glucose POC) 165 [address] 710953-03-17 12:53:00 Test Item Value Reference Range Interpretation Comments Glucose POC (test code = Glucose POC) 165 70- [place] 763463-03-17 12:53:00 Test Item Value Reference Range Interpretation Comments Glucose POC (test code = Glucose POC) 165 [address] [place], [place] 046163-03-17 12:53:00 Test Item Value Reference Range Interpretation Comments Glucose POC (test code = Glucose POC) 165 [address] [place] [address]-03-16 21:20:00 Test Item Value Reference Range Interpretation Comments Gluc POC Comment 1 (test code Notified RN/MD = Gluc POC Comment 1) [place] 763463-03-16 21:20:00 Test Item Value Reference Range Interpretation Comments Gluc POC Comment 1 (test code Notified RN/MD = Gluc POC Comment 1) [facility]2023-03-16 21:20:00 Test Item Value Reference Range Interpretation Comments Gluc POC Comment 1 (test code Notified RN/MD = Gluc POC Comment 1) [facility]2023-03-16 21:20:00 Test Item Value Reference Range Interpretation Comments Gluc POC Comment 1 (test code Notified RN/MD = Gluc POC Comment 1) [facility]2023-03-16 21:20:00 Test Item Value Reference Range Interpretation Comments Gluc POC Comment 1 (test code Notified RN/MD = Gluc POC Comment 1) [place] [id number] 15:59:03 Test Item Value Reference Range Interpretation Comments RADRPT (test code PROCEDURE INFORMATION: = RADRPT) Exam: XR Lumbosacral Spine Exam date and time: 12/02/2022 7:44 AM Age: 67 years old Clinical indication: /low back pain TECHNIQUE: Imaging protocol: Radiologic exam of the lumbosacral spine. Views: 4 or 5 views. AP Lateral Oblique COMPARISON: ABDOMEN AP DX 11/22/2022 1:00 PM FINDINGS: Bones/joints: 5 lumbar-type vertebral bodies. 3.5 mm anterolisthesis of L4 on L5 and slight posterior listhesis of L5 on S1. There is bilateral L4-L5 and L5-S1 facet hypertrophy. No spondylolysis bilaterally. Mhgm-tf-cuugaopm degenerative changes about the visualized lower thoracic spine. Mild degenerative changes about L4-L5. No fracture or other subluxation. Abdominal aortic and iliac artery calcification. Multiple coils project about the lower abdomen and pelvis. Nonspecific 1.2 cm calcification projects between the right L2 and L3 transverse processes. Surgical clips are seen in the right upper abdomen. Large amount of stool noted about the visualized colon. Soft tissues: Unremarkable. IMPRESSION: 1. 3.5 mm anterolisthesis of L4 on L5 and slight posterior listhesis of L5 on S1. There is bilateral L4-L5 and L5-S1 facet hypertrophy. No spondylolysis bilaterally. Mhrj-kg-kpgoafkf degenerative changes about the visualized lower thoracic spine. Mild degenerative changes about L4-L5. No fracture or other subluxation. 2. Nonspecific 1.2 cm calcification projects between the right L2 and L3 transverse processes. 3. Large amount of stool noted about the visualized colon.Mihcael Lay MD On 12/02/2022 10:57:36; [id number] [id number] 15:59:03 Test Item Value Reference Range Interpretation Comments RADRPT (test code PROCEDURE INFORMATION: = RADRPT) Exam: XR Lumbosacral Spine Exam date and time: 12/02/2022 7:44 AM Age: 67 years old Clinical indication: /low back pain TECHNIQUE: Imaging protocol: Radiologic exam of the lumbosacral spine. Views: 4 or 5 views. AP Lateral Oblique COMPARISON: ABDOMEN AP DX 11/22/2022 1:00 PM FINDINGS: Bones/joints: 5 lumbar-type vertebral bodies. 3.5 mm anterolisthesis of L4 on L5 and slight posterior listhesis of L5 on S1. There is bilateral L4-L5 and L5-S1 facet hypertrophy. No spondylolysis bilaterally. Vxqr-ie-vxfvtxyu degenerative changes about the visualized lower thoracic spine. Mild degenerative changes about L4-L5. No fracture or other subluxation. Abdominal aortic and iliac artery calcification. Multiple coils project about the lower abdomen and pelvis. Nonspecific 1.2 cm calcification projects between the right L2 and L3 transverse processes. Surgical clips are seen in the right upper abdomen. Large amount of stool noted about the visualized colon. Soft tissues: Unremarkable. IMPRESSION: 1. 3.5 mm anterolisthesis of L4 on L5 and slight posterior listhesis of L5 on S1. There is bilateral L4-L5 and L5-S1 facet hypertrophy. No spondylolysis bilaterally. Uehu-nx-lkexibon degenerative changes about the visualized lower thoracic spine. Mild degenerative changes about L4-L5. No fracture or other subluxation. 2. Nonspecific 1.2 cm calcification projects between the right L2 and L3 transverse processes. 3. Large amount of stool noted about the visualized colon.Michael Lay MD On 12/02/2022 10:57:36; [id number] [facility] [id number] 15:59:03 Test Item Value Reference Range Interpretation Comments RADRPT (test code PROCEDURE INFORMATION: = RADRPT) Exam: XR Lumbosacral Spine Exam date and time: 12/02/2022 7:44 AM Age: 67 years old Clinical indication: /low back pain TECHNIQUE: Imaging protocol: Radiologic exam of the lumbosacral spine. Views: 4 or 5 views. AP Lateral Oblique COMPARISON: ABDOMEN AP DX 11/22/2022 1:00 PM FINDINGS: Bones/joints: 5 lumbar-type vertebral bodies. 3.5 mm anterolisthesis of L4 on L5 and slight posterior listhesis of L5 on S1. There is bilateral L4-L5 and L5-S1 facet hypertrophy. No spondylolysis bilaterally. Yspx-si-tenyghjb degenerative changes about the visualized lower thoracic spine. Mild degenerative changes about L4-L5. No fracture or other subluxation. Abdominal aortic and iliac artery calcification. Multiple coils project about the lower abdomen and pelvis. Nonspecific 1.2 cm calcification projects between the right L2 and L3 transverse processes. Surgical clips are seen in the right upper abdomen. Large amount of stool noted about the visualized colon. Soft tissues: Unremarkable. IMPRESSION: 1. 3.5 mm anterolisthesis of L4 on L5 and slight posterior listhesis of L5 on S1. There is bilateral L4-L5 and L5-S1 facet hypertrophy. No spondylolysis bilaterally. Jdgi-bb-pcdirpsu degenerative changes about the visualized lower thoracic spine. Mild degenerative changes about L4-L5. No fracture or other subluxation. 2. Nonspecific 1.2 cm calcification projects between the right L2 and L3 transverse processes. 3. Large amount of stool noted about the visualized colon.Michael aLy MD On 12/02/2022 10:57:36; [id number] [facility] [id number] 15:59:03 Test Item Value Reference Range Interpretation Comments RADRPT (test code PROCEDURE INFORMATION: = RADRPT) Exam: XR Lumbosacral Spine Exam date and time: 12/02/2022 7:44 AM Age: 67 years old Clinical indication: /low back pain TECHNIQUE: Imaging protocol: Radiologic exam of the lumbosacral spine. Views: 4 or 5 views. AP Lateral Oblique COMPARISON: ABDOMEN AP DX 11/22/2022 1:00 PM FINDINGS: Bones/joints: 5 lumbar-type vertebral bodies. 3.5 mm anterolisthesis of L4 on L5 and slight posterior listhesis of L5 on S1. There is bilateral L4-L5 and L5-S1 facet hypertrophy. No spondylolysis bilaterally. Oozn-tj-yyyviadv degenerative changes about the visualized lower thoracic spine. Mild degenerative changes about L4-L5. No fracture or other subluxation. Abdominal aortic and iliac artery calcification. Multiple coils project about the lower abdomen and pelvis. Nonspecific 1.2 cm calcification projects between the right L2 and L3 transverse processes. Surgical clips are seen in the right upper abdomen. Large amount of stool noted about the visualized colon. Soft tissues: Unremarkable. IMPRESSION: 1. 3.5 mm anterolisthesis of L4 on L5 and slight posterior listhesis of L5 on S1. There is bilateral L4-L5 and L5-S1 facet hypertrophy. No spondylolysis bilaterally. Fawv-fp-hjgzpxur degenerative changes about the visualized lower thoracic spine. Mild degenerative changes about L4-L5. No fracture or other subluxation. 2. Nonspecific 1.2 cm calcification projects between the right L2 and L3 transverse processes. 3. Large amount of stool noted about the visualized colon.Michael Lay MD On 12/02/2022 10:57:36; [id number] [facility] [id number] 15:59:03 Test Item Value Reference Range Interpretation Comments RADRPT (test code PROCEDURE INFORMATION: = RADRPT) Exam: XR Lumbosacral Spine Exam date and time: 12/02/2022 7:44 AM Age: 67 years old Clinical indication: /low back pain TECHNIQUE: Imaging protocol: Radiologic exam of the lumbosacral spine. Views: 4 or 5 views. AP Lateral Oblique COMPARISON: ABDOMEN AP DX 11/22/2022 1:00 PM FINDINGS: Bones/joints: 5 lumbar-type vertebral bodies. 3.5 mm anterolisthesis of L4 on L5 and slight posterior listhesis of L5 on S1. There is bilateral L4-L5 and L5-S1 facet hypertrophy. No spondylolysis bilaterally. Sxkr-ao-qumtrvgt degenerative changes about the visualized lower thoracic spine. Mild degenerative changes about L4-L5. No fracture or other subluxation. Abdominal aortic and iliac artery calcification. Multiple coils project about the lower abdomen and pelvis. Nonspecific 1.2 cm calcification projects between the right L2 and L3 transverse processes. Surgical clips are seen in the right upper abdomen. Large amount of stool noted about the visualized colon. Soft tissues: Unremarkable. IMPRESSION: 1. 3.5 mm anterolisthesis of L4 on L5 and slight posterior listhesis of L5 on S1. There is bilateral L4-L5 and L5-S1 facet hypertrophy. No spondylolysis bilaterally. Wvgh-vf-cldzcalw degenerative changes about the visualized lower thoracic spine. Mild degenerative changes about L4-L5. No fracture or other subluxation. 2. Nonspecific 1.2 cm calcification projects between the right L2 and L3 transverse processes. 3. Large amount of stool noted about the visualized colon.Michael Lay MD On 12/02/2022 10:57:36; [id number] [place] 271463-03-13 11:15:00 Test Item Value Reference Range Interpretation Comments Glucose Lvl (test code = Glucose Lvl) 172 70-99 [place] [address]-03-13 11:15:00 Test Item Value Reference Range Interpretation Comments BUN (test code = BUN) 24 7-22 [place] 271463-03-13 11:15:00 Test Item Value Reference Range Interpretation Comments Creatinine Lvl (test code = Creatinine 2.58 0.50-1.40 Lvl) [facility] AliceFrgkoetRGFXJRSPU5201-87-92 11:15:00 Test Item Value Reference Range Interpretation Comments Sodium Lvl (test code = Sodium Lvl) 139 135-145 [place] 271463-03-13 11:15:00 Test Item Value Reference Range Interpretation Comments Potassium Lvl (test code = Potassium 4.0 3.5-5.1 Lvl) [facility] AliceXbrztthCNKPJMWHX2704-56-62 11:15:00 Test Item Value Reference Range Interpretation Comments Chloride Lvl (test code = Chloride Lvl) 105 95-109 [facility] AliceIcwlcflUPAHVTIME7358-71-18 11:15:00 Test Item Value Reference Range Interpretation Comments CO2 (test code = CO2) 24 24-32 [place] 271463-03-13 11:15:00 Test Item Value Reference Range Interpretation Comments Calcium Lvl (test code = Calcium Lvl) 9.3 8.5-10.5 [place] 271463-03-13 11:15:00 Test Item Value Reference Range Interpretation Comments AGAP (test code = AGAP) 14.0 10.0-20.0 [place] 271463-03-13 11:15:00 Test Item Value Reference Range Interpretation Comments eGFR (test code = eGFR) 20 [place] 271463-03-13 11:15:00 Test Item Value Reference Range Interpretation Comments Magnesium Lvl (test code = Magnesium 1.9 1.8-2.4 Lvl) [facility] AliceFowxufaZECTCEKEZ2464-93-55 11:15:00 Test Item Value Reference Range Interpretation Comments Phosphorus (test code = Phosphorus) 4.4 2.5-4.5 [facility]JQCAVWDWWS8759-65-25 11:15:00 Test Item Value Reference Range Interpretation Comments Segs (test code = Segs) 61.4 45.0-75.0 [facility] CenterZkgmrgbOKLDMHNYMW9732-65-35 11:15:00 Test Item Value Reference Range Interpretation Comments Lymphocytes (test code = Lymphocytes) 23.5 20.0-40.0 [place] 936063-03-13 11:15:00 Test Item Value Reference Range Interpretation Comments Monocytes (test code = Monocytes) 9.8 2.0-12.0 [facility] CenterEuhkcygHIXPRQNYSG1254-17-57 11:15:00 Test Item Value Reference Range Interpretation Comments Eosinophils (test code = 4.9 See_Comment [A utomated message] The Eosinophils) system which ge nerated this result tra nsmitted reference range : <=4.0. The reference r bridget was not used to int erpret this result as normal/abnormal . [facility]LolrqvwUSOPJXYIRL9502-43-16 11:15:00 Test Item Value Reference Range Interpretation Comments Basophils (test code = 0.4 See_Comment [Aut omated message] The Basophils) system which ge nerated this result tra nsmitted reference range : <=1.0. The reference r bridget was not used to int erpret this result as normal/abnormal . [place] 936063-03-13 11:15:00 Test Item Value Reference Range Interpretation Comments Neutrophils # (test code = Neutrophils 3.4 1.5-8.1 #) [place] 936063-03-13 11:15:00 Test Item Value Reference Range Interpretation Comments Lymphocytes # (test code = Lymphocytes 1.3 1.0-5.5 #) [place] [address]-03-13 11:15:00 Test Item Value Reference Range Interpretation Comments Monocytes # (test code 0.5 See_Comment [Aut omated message] The = Monocytes #) system which generated this result tra nsmitted reference range : <=0.8. The reference r bridget was not used to int erpret this result as normal/abnormal . [facility] CenterYdhpcdhTXHEDUPGIE2337-62-35 11:15:00 Test Item Value Reference Range Interpretation Comments Eosinophils # (test code 0.3 See_Comment [A utomated message] The = Eosinophils #) system BCKSTGRic h generated this result tra nsmitted reference range : <=0.5. The reference r bridget was not used to int erpret this result as normal/abnormal . [facility] CenterGorqhypHLCSDGUSQA8374-65-92 11:15:00 Test Item Value Reference Range Interpretation Comments WBC (test code = WBC) 5.6 3.7-10.4 [facility] CenterKwsdlnhPNVPVEBSVA1525-21-10 11:15:00 Test Item Value Reference Range Interpretation Comments RBC (test code = RBC) 3.35 4.20-5.40 [facility] CenterFslsbapJPEYGXJDIZ7124-14-10 11:15:00 Test Item Value Reference Range Interpretation Comments Hgb (test code = Hgb) 9.2 12.0-16.0 [facility] CenterAcwgrisPSIIKLMSVB7532-48-21 11:15:00 Test Item Value Reference Range Interpretation Comments Hct (test code = Hct) 27.8 36.0-48.0 [facility] CenterXazgedaGBWOEDYXVP9103-40-76 11:15:00 Test Item Value Reference Range Interpretation Comments MCV (test code = MCV) 82.8 80.0-98.0 [facility] CenterGmteomxXEMLSPOPRB1305-56-41 11:15:00 Test Item Value Reference Range Interpretation Comments MCH (test code = MCH) 27.6 pg 27.0-31.0 [facility] CenterPmzukdwNOUBNEMHVB7554-40-78 11:15:00 Test Item Value Reference Range Interpretation Comments MCHC (test code = MCHC) 33.3 32.0-36.0 [facility] CenterMllphpkJVTEDEOYIC2304-83-89 11:15:00 Test Item Value Reference Range Interpretation Comments RDW (test code = RDW) 18.2 11.5-14.5 [facility] CenterAizwuweQZGHJWKSZB2781-89-90 11:15:00 Test Item Value Reference Range Interpretation Comments Platelet (test code = Platelet) 225 133-450 [facility] CenterGunfrytXOGLNOPHIK3901-38-48 11:15:00 Test Item Value Reference Range Interpretation Comments MPV (test code = MPV) 7.2 7.4-10.4 [facility] AliceMuzwxtcDXQLLOWDJ9001-60-06 11:15:00 Test Item Value Reference Range Interpretation Comments Glucose Lvl (test code = Glucose Lvl) 172 70-99 [facility] AliceYxmrnlzMHFCEDNID5906-99-68 11:15:00 Test Item Value Reference Range Interpretation Comments BUN (test code = BUN) 24 7-22 [facility] AliceAmqqwzqFAGSEEUFQ1851-83-73 11:15:00 Test Item Value Reference Range Interpretation Comments Creatinine Lvl (test code = Creatinine 2.58 0.50-1.40 Lvl) [facility] AliceCvtyfvzXYNSJSRSW8424-62-76 11:15:00 Test Item Value Reference Range Interpretation Comments Sodium Lvl (test code = Sodium Lvl) 139 135-145 [facility] AliceUnrofxcINRQOHOPP8980-59-44 11:15:00 Test Item Value Reference Range Interpretation Comments Potassium Lvl (test code = Potassium 4.0 3.5-5.1 Lvl) [facility] AliceEyhicsoRTITAEJCC2308-75-02 11:15:00 Test Item Value Reference Range Interpretation Comments Chloride Lvl (test code = Chloride Lvl) 105 95-109 [facility] AliceMpjiembQWAERTTQX6183-91-41 11:15:00 Test Item Value Reference Range Interpretation Comments CO2 (test code = CO2) 24 24-32 [facility] AliceQryfdmhSUPCWGJVI9255-13-49 11:15:00 Test Item Value Reference Range Interpretation Comments Calcium Lvl (test code = Calcium Lvl) 9.3 8.5-10.5 [facility] AliceMwycifzUOAFJXKYD3727-06-97 11:15:00 Test Item Value Reference Range Interpretation Comments AGAP (test code = AGAP) 14.0 10.0-20.0 [facility] AliceQpgabilMXXYNYFMI4356-90-99 11:15:00 Test Item Value Reference Range Interpretation Comments eGFR (test code = eGFR) 20 [facility] AliceArhktebZGDTRXESU8182-11-28 11:15:00 Test Item Value Reference Range Interpretation Comments Magnesium Lvl (test code = Magnesium 1.9 1.8-2.4 Lvl) [facility] AliceUbqycpxBAYAUIFRU5834-95-53 11:15:00 Test Item Value Reference Range Interpretation Comments Phosphorus (test code = Phosphorus) 4.4 2.5-4.5 [facility]LeqfdpqXDQWSCQBEF3422-84-69 11:15:00 Test Item Value Reference Range Interpretation Comments Segs (test code = Segs) 61.4 45.0-75.0 [place] [address]-03-13 11:15:00 Test Item Value Reference Range Interpretation Comments Lymphocytes (test code = Lymphocytes) 23.5 20.0-40.0 [place] [address]-03-13 11:15:00 Test Item Value Reference Range Interpretation Comments Monocytes (test code = Monocytes) 9.8 2.0-12.0 [place] 936063-03-13 11:15:00 Test Item Value Reference Range Interpretation Comments Eosinophils (test code = 4.9 See_Comment [A utomated message] The Eosinophils) system which ge nerated this result tra nsmitted reference range : <=4.0. The reference r bridget was not used to int erpret this result as normal/abnormal . [place] [address]-03-13 11:15:00 Test Item Value Reference Range Interpretation Comments Basophils (test code = 0.4 See_Comment [Aut omated message] The Basophils) system which ge nerated this result tra nsmitted reference range : <=1.0. The reference r bridget was not used to int erpret this result as normal/abnormal . [place] 936063-03-13 11:15:00 Test Item Value Reference Range Interpretation Comments Neutrophils # (test code = Neutrophils 3.4 1.5-8.1 #) [place] [address]-03-13 11:15:00 Test Item Value Reference Range Interpretation Comments Lymphocytes # (test code = Lymphocytes 1.3 1.0-5.5 #) [place] 936063-03-13 11:15:00 Test Item Value Reference Range Interpretation Comments Monocytes # (test code 0.5 See_Comment [Aut omated message] The = Monocytes #) system which generated this result tra nsmitted reference range : <=0.8. The reference r bridget was not used to int erpret this result as normal/abnormal . [place] [address]-03-13 11:15:00 Test Item Value Reference Range Interpretation Comments Eosinophils # (test code 0.3 See_Comment [A utomated message] The = Eosinophils #) system whic h generated this result tra nsmitted reference range : <=0.5. The reference r bridget was not used to int erpret this result as normal/abnormal . [place] [address]-03-13 11:15:00 Test Item Value Reference Range Interpretation Comments WBC (test code = WBC) 5.6 3.7-10.4 [place] [address]-03-13 11:15:00 Test Item Value Reference Range Interpretation Comments RBC (test code = RBC) 3.35 4.20-5.40 [place] [address]-03-13 11:15:00 Test Item Value Reference Range Interpretation Comments Hgb (test code = Hgb) 9.2 12.0-16.0 [place] [address]-03-13 11:15:00 Test Item Value Reference Range Interpretation Comments Hct (test code = Hct) 27.8 36.0-48.0 [place] [address]-03-13 11:15:00 Test Item Value Reference Range Interpretation Comments MCV (test code = MCV) 82.8 80.0-98.0 [place] [address]-03-13 11:15:00 Test Item Value Reference Range Interpretation Comments MCH (test code = MCH) 27.6 pg 27.0-31.0 [place] [address]-03-13 11:15:00 Test Item Value Reference Range Interpretation Comments MCHC (test code = MCHC) 33.3 32.0-36.0 [place] [address]-03-13 11:15:00 Test Item Value Reference Range Interpretation Comments RDW (test code = RDW) 18.2 11.5-14.5 [place] [address]-03-13 11:15:00 Test Item Value Reference Range Interpretation Comments Platelet (test code = Platelet) 225 133-450 [place] 936063-03-13 11:15:00 Test Item Value Reference Range Interpretation Comments MPV (test code = MPV) 7.2 7.4-10.4 [place] [address]-03-13 11:15:00 Test Item Value Reference Range Interpretation Comments Glucose Lvl (test code = Glucose Lvl) 172 70-99 [place] [address]-03-13 11:15:00 Test Item Value Reference Range Interpretation Comments BUN (test code = BUN) 24 7-22 [place] [address]-03-13 11:15:00 Test Item Value Reference Range Interpretation Comments Creatinine Lvl (test code = Creatinine 2.58 0.50-1.40 Lvl) [facility] AliceWtgwwgxNUFTAKESG3899-87-74 11:15:00 Test Item Value Reference Range Interpretation Comments Sodium Lvl (test code = Sodium Lvl) 139 135-145 [facility] AliceLjyuvhoLGILGCEPE3977-05-65 11:15:00 Test Item Value Reference Range Interpretation Comments Potassium Lvl (test code = Potassium 4.0 3.5-5.1 Lvl) [facility] AliceUgiagwzCQFJGEWEB5941-28-60 11:15:00 Test Item Value Reference Range Interpretation Comments Chloride Lvl (test code = Chloride Lvl) 105 95-109 [facility] AliceWrbqwoxGNFABCYGB2489-73-24 11:15:00 Test Item Value Reference Range Interpretation Comments CO2 (test code = CO2) 24 24-32 [facility] AliceKgfivqqHVLKJSTJU5550-52-17 11:15:00 Test Item Value Reference Range Interpretation Comments Calcium Lvl (test code = Calcium Lvl) 9.3 8.5-10.5 [facility] AliceOoxtjzfRDBNLMNST1171-22-98 11:15:00 Test Item Value Reference Range Interpretation Comments AGAP (test code = AGAP) 14.0 10.0-20.0 [facility] AliceEbufgllLXJCAODTC7744-00-21 11:15:00 Test Item Value Reference Range Interpretation Comments eGFR (test code = eGFR) 20 [facility] AliceZzzcqlvPNYYKEGQG0224-25-42 11:15:00 Test Item Value Reference Range Interpretation Comments Magnesium Lvl (test code = Magnesium 1.9 1.8-2.4 Lvl) [facility] AliceWvrdqbdVQUNOGZAH9271-62-58 11:15:00 Test Item Value Reference Range Interpretation Comments Phosphorus (test code = Phosphorus) 4.4 2.5-4.5 [facility]aMgrbrdvNTDARKKZCV5958-07-34 11:15:00 Test Item Value Reference Range Interpretation Comments Segs (test code = Segs) 61.4 45.0-75.0 [facility]aHwkxgywHLMFQXSIPO7604-05-56 11:15:00 Test Item Value Reference Range Interpretation Comments Lymphocytes (test code = Lymphocytes) 23.5 20.0-40.0 [facility] CenterWniakiuJTMBAKBDBR7958-98-13 11:15:00 Test Item Value Reference Range Interpretation Comments Monocytes (test code = Monocytes) 9.8 2.0-12.0 [facility] CenterWonkdwcJECGAMXPXB0786-25-13 11:15:00 Test Item Value Reference Range Interpretation Comments Eosinophils (test code = 4.9 See_Comment [A utomated message] The Eosinophils) system which ge nerated this result tra nsmitted reference range : <=4.0. The reference r bridget was not used to int erpret this result as normal/abnormal . [place] [address]-03-13 11:15:00 Test Item Value Reference Range Interpretation Comments Basophils (test code = 0.4 See_Comment [Aut omated message] The Basophils) system which ge nerated this result tra nsmitted reference range : <=1.0. The reference r bridget was not used to int erpret this result as normal/abnormal . [place] [address]-03-13 11:15:00 Test Item Value Reference Range Interpretation Comments Neutrophils # (test code = Neutrophils 3.4 1.5-8.1 #) [place] [address]-03-13 11:15:00 Test Item Value Reference Range Interpretation Comments Lymphocytes # (test code = Lymphocytes 1.3 1.0-5.5 #) [place] [address]-03-13 11:15:00 Test Item Value Reference Range Interpretation Comments Monocytes # (test code 0.5 See_Comment [Aut omated message] The = Monocytes #) system which generated this result tra nsmitted reference range : <=0.8. The reference r bridget was not used to int erpret this result as normal/abnormal . [place] [address]-03-13 11:15:00 Test Item Value Reference Range Interpretation Comments Eosinophils # (test code 0.3 See_Comment [A utomated message] The = Eosinophils #) system whic h generated this result tra nsmitted reference range : <=0.5. The reference r bridget was not used to int erpret this result as normal/abnormal . [place] [address]-03-13 11:15:00 Test Item Value Reference Range Interpretation Comments WBC (test code = WBC) 5.6 3.7-10.4 [place] [address]-03-13 11:15:00 Test Item Value Reference Range Interpretation Comments RBC (test code = RBC) 3.35 4.20-5.40 [place] [address]-03-13 11:15:00 Test Item Value Reference Range Interpretation Comments Hgb (test code = Hgb) 9.2 12.0-16.0 [place] [address]-03-13 11:15:00 Test Item Value Reference Range Interpretation Comments Hct (test code = Hct) 27.8 36.0-48.0 [place] 936063-03-13 11:15:00 Test Item Value Reference Range Interpretation Comments MCV (test code = MCV) 82.8 80.0-98.0 [place] 936063-03-13 11:15:00 Test Item Value Reference Range Interpretation Comments MCH (test code = MCH) 27.6 pg 27.0-31.0 [place] 936063-03-13 11:15:00 Test Item Value Reference Range Interpretation Comments MCHC (test code = MCHC) 33.3 32.0-36.0 [facility] CenterAjnncjeUJLYAUADFJ7218-41-03 11:15:00 Test Item Value Reference Range Interpretation Comments RDW (test code = RDW) 18.2 11.5-14.5 [place] 936063-03-13 11:15:00 Test Item Value Reference Range Interpretation Comments Platelet (test code = Platelet) 225 133-450 [facility] CenterDmllgixJWPNGSJZDP1233-37-91 11:15:00 Test Item Value Reference Range Interpretation Comments MPV (test code = MPV) 7.2 7.4-10.4 [place] 271463-03-13 11:15:00 Test Item Value Reference Range Interpretation Comments Glucose Lvl (test code = Glucose Lvl) 172 70-99 [facility] AliceKhivqsbUEOYISFYN5294-52-41 11:15:00 Test Item Value Reference Range Interpretation Comments BUN (test code = BUN) 24 7-22 [place] 271463-03-13 11:15:00 Test Item Value Reference Range Interpretation Comments Creatinine Lvl (test code = Creatinine 2.58 0.50-1.40 Lvl) [facility] AliceWprtozaHYZPMNGDX6955-80-96 11:15:00 Test Item Value Reference Range Interpretation Comments Sodium Lvl (test code = Sodium Lvl) 139 135-145 [place] 271463-03-13 11:15:00 Test Item Value Reference Range Interpretation Comments Potassium Lvl (test code = Potassium 4.0 3.5-5.1 Lvl) [facility] AliceIulhfmmRUUJMWRAL6769-88-04 11:15:00 Test Item Value Reference Range Interpretation Comments Chloride Lvl (test code = Chloride Lvl) 105 95-109 [facility] AliceTllrjroUKOILKNTP3096-74-99 11:15:00 Test Item Value Reference Range Interpretation Comments CO2 (test code = CO2) 24 24-32 [facility] AliceIzjqaeyTBCIILULB5668-47-54 11:15:00 Test Item Value Reference Range Interpretation Comments Calcium Lvl (test code = Calcium Lvl) 9.3 8.5-10.5 [facility] AliceIgamcwwMQWQGZNTD7735-53-11 11:15:00 Test Item Value Reference Range Interpretation Comments AGAP (test code = AGAP) 14.0 10.0-20.0 [facility] AliceOqgfmrgEGCRAKWNI6068-63-18 11:15:00 Test Item Value Reference Range Interpretation Comments eGFR (test code = eGFR) 20 [facility] AliceUfneikjHZKFXVHPD8737-07-88 11:15:00 Test Item Value Reference Range Interpretation Comments Magnesium Lvl (test code = Magnesium 1.9 1.8-2.4 Lvl) [facility] AliceYeznaqdGNXFXXPNG7088-80-72 11:15:00 Test Item Value Reference Range Interpretation Comments Phosphorus (test code = Phosphorus) 4.4 2.5-4.5 [facility] CenterNkustsyLSDWNVQEQK4035-36-70 11:15:00 Test Item Value Reference Range Interpretation Comments Segs (test code = Segs) 61.4 45.0-75.0 [facility] CenterPjhmqrzCVXYFZPFWK6157-93-47 11:15:00 Test Item Value Reference Range Interpretation Comments Lymphocytes (test code = Lymphocytes) 23.5 20.0-40.0 [facility] CenterJvjisrxDYCUXEVOXH5819-70-36 11:15:00 Test Item Value Reference Range Interpretation Comments Monocytes (test code = Monocytes) 9.8 2.0-12.0 [place] [address]-03-13 11:15:00 Test Item Value Reference Range Interpretation Comments Eosinophils (test code = 4.9 See_Comment [A utomated message] The Eosinophils) system which ge nerated this result tra nsmitted reference range : <=4.0. The reference r bridget was not used to int erpret this result as normal/abnormal . [place] 936063-03-13 11:15:00 Test Item Value Reference Range Interpretation Comments Basophils (test code = 0.4 See_Comment [Aut omated message] The Basophils) system which ge nerated this result tra nsmitted reference range : <=1.0. The reference r bridget was not used to int erpret this result as normal/abnormal . [place] [address]-03-13 11:15:00 Test Item Value Reference Range Interpretation Comments Neutrophils # (test code = Neutrophils 3.4 1.5-8.1 #) [place] [address]-03-13 11:15:00 Test Item Value Reference Range Interpretation Comments Lymphocytes # (test code = Lymphocytes 1.3 1.0-5.5 #) [place] [address]-03-13 11:15:00 Test Item Value Reference Range Interpretation Comments Monocytes # (test code 0.5 See_Comment [Aut omated message] The = Monocytes #) system which generated this result tra nsmitted reference range : <=0.8. The reference r bridget was not used to int erpret this result as normal/abnormal . [place] [address]-03-13 11:15:00 Test Item Value Reference Range Interpretation Comments Eosinophils # (test code 0.3 See_Comment [A utomated message] The = Eosinophils #) system whic h generated this result tra nsmitted reference range : <=0.5. The reference r bridget was not used to int erpret this result as normal/abnormal . [place] 936063-03-13 11:15:00 Test Item Value Reference Range Interpretation Comments WBC (test code = WBC) 5.6 3.7-10.4 [place] [address]-03-13 11:15:00 Test Item Value Reference Range Interpretation Comments RBC (test code = RBC) 3.35 4.20-5.40 [place] [address]-03-13 11:15:00 Test Item Value Reference Range Interpretation Comments Hgb (test code = Hgb) 9.2 12.0-16.0 [place] [address]-03-13 11:15:00 Test Item Value Reference Range Interpretation Comments Hct (test code = Hct) 27.8 36.0-48.0 [place] [address]-03-13 11:15:00 Test Item Value Reference Range Interpretation Comments MCV (test code = MCV) 82.8 80.0-98.0 [place] 936063-03-13 11:15:00 Test Item Value Reference Range Interpretation Comments MCH (test code = MCH) 27.6 pg 27.0-31.0 [facility] CenterRnizkpnBLPZDHJIIK8698-74-29 11:15:00 Test Item Value Reference Range Interpretation Comments MCHC (test code = MCHC) 33.3 32.0-36.0 [facility] CenterZduhpxuZYVZUOGROG5602-79-94 11:15:00 Test Item Value Reference Range Interpretation Comments RDW (test code = RDW) 18.2 11.5-14.5 [place] [address]-03-13 11:15:00 Test Item Value Reference Range Interpretation Comments Platelet (test code = Platelet) 225 133-450 [facility] CenterKatdyybOPSWONYFYP6732-99-67 11:15:00 Test Item Value Reference Range Interpretation Comments MPV (test code = MPV) 7.2 7.4-10.4 [facility] AliceJbdfhxkEPXQLRGOG7929-81-47 11:15:00 Test Item Value Reference Range Interpretation Comments Glucose Lvl (test code = Glucose Lvl) 172 70-99 [facility] AliceGxzbgtgKJWGKKLLI4896-81-08 11:15:00 Test Item Value Reference Range Interpretation Comments BUN (test code = BUN) 24 7-22 [facility] AliceNjzcoyfLNEBLQULR6138-69-46 11:15:00 Test Item Value Reference Range Interpretation Comments Creatinine Lvl (test code = Creatinine 2.58 0.50-1.40 Lvl) [facility] AliceRbnvjanFXNNBOQOL2597-70-16 11:15:00 Test Item Value Reference Range Interpretation Comments Sodium Lvl (test code = Sodium Lvl) 139 135-145 [facility] AliceTymmkynEMKLVHYOC8507-07-94 11:15:00 Test Item Value Reference Range Interpretation Comments Potassium Lvl (test code = Potassium 4.0 3.5-5.1 Lvl) [facility] AliceVqyrwvaMJFFSCMVS6601-55-40 11:15:00 Test Item Value Reference Range Interpretation Comments Chloride Lvl (test code = Chloride Lvl) 105 95-109 [facility] AliceLdmghmvPCEIPPZNY9798-41-43 11:15:00 Test Item Value Reference Range Interpretation Comments CO2 (test code = CO2) 24 24-32 [place] 271463-03-13 11:15:00 Test Item Value Reference Range Interpretation Comments Calcium Lvl (test code = Calcium Lvl) 9.3 8.5-10.5 [facility] AliceWjplktvWVMMOGVSZ5360-62-84 11:15:00 Test Item Value Reference Range Interpretation Comments AGAP (test code = AGAP) 14.0 10.0-20.0 [facility] AlicePzotxcjALPRUWEKN6727-98-94 11:15:00 Test Item Value Reference Range Interpretation Comments eGFR (test code = eGFR) 20 [facility] AliceFesprfkJGBSDYIOU7995-07-60 11:15:00 Test Item Value Reference Range Interpretation Comments Magnesium Lvl (test code = Magnesium 1.9 1.8-2.4 Lvl) [facility] AliceWzesozgGDNXCOKWU2937-91-86 11:15:00 Test Item Value Reference Range Interpretation Comments Phosphorus (test code = Phosphorus) 4.4 2.5-4.5 [facility] CenterErhoxzuEZLYDEWVQO1927-21-08 11:15:00 Test Item Value Reference Range Interpretation Comments Segs (test code = Segs) 61.4 45.0-75.0 [facility] CenterXjfktfxUFZMFDQRKK7415-57-19 11:15:00 Test Item Value Reference Range Interpretation Comments Lymphocytes (test code = Lymphocytes) 23.5 20.0-40.0 [facility] CenterGowhldfHAGKNNOXXZ6066-45-74 11:15:00 Test Item Value Reference Range Interpretation Comments Monocytes (test code = Monocytes) 9.8 2.0-12.0 [facility] CenterStsucbqXHXYGTDISM2404-91-24 11:15:00 Test Item Value Reference Range Interpretation Comments Eosinophils (test code = 4.9 See_Comment [A utomated message] The Eosinophils) system which ge nerated this result tra nsmitted reference range : <=4.0. The reference r bridget was not used to int erpret this result as normal/abnormal . [facility] CenterRkdeevkQMEXLTIPTV7390-35-32 11:15:00 Test Item Value Reference Range Interpretation Comments Basophils (test code = 0.4 See_Comment [Aut omated message] The Basophils) system which ge nerated this result tra nsmitted reference range : <=1.0. The reference r bridget was not used to int erpret this result as normal/abnormal . [facility] CenterDyjwxfvYHQGWGXMCB0163-69-21 11:15:00 Test Item Value Reference Range Interpretation Comments Neutrophils # (test code = Neutrophils 3.4 1.5-8.1 #) [place] [address]-03-13 11:15:00 Test Item Value Reference Range Interpretation Comments Lymphocytes # (test code = Lymphocytes 1.3 1.0-5.5 #) [place] 936063-03-13 11:15:00 Test Item Value Reference Range Interpretation Comments Monocytes # (test code 0.5 See_Comment [Aut omated message] The = Monocytes #) system which generated this result tra nsmitted reference range : <=0.8. The reference r bridget was not used to int erpret this result as normal/abnormal . [place] 936063-03-13 11:15:00 Test Item Value Reference Range Interpretation Comments Eosinophils # (test code 0.3 See_Comment [A utomated message] The = Eosinophils #) system whic h generated this result tra nsmitted reference range : <=0.5. The reference r bridget was not used to int erpret this result as normal/abnormal . [place] 936063-03-13 11:15:00 Test Item Value Reference Range Interpretation Comments WBC (test code = WBC) 5.6 3.7-10.4 [place] [address]-03-13 11:15:00 Test Item Value Reference Range Interpretation Comments RBC (test code = RBC) 3.35 4.20-5.40 [place] [address]-03-13 11:15:00 Test Item Value Reference Range Interpretation Comments Hgb (test code = Hgb) 9.2 12.0-16.0 [place] [address]-03-13 11:15:00 Test Item Value Reference Range Interpretation Comments Hct (test code = Hct) 27.8 36.0-48.0 [place] [address]-03-13 11:15:00 Test Item Value Reference Range Interpretation Comments MCV (test code = MCV) 82.8 80.0-98.0 [place] [address]-03-13 11:15:00 Test Item Value Reference Range Interpretation Comments MCH (test code = MCH) 27.6 pg 27.0-31.0 [place] [id number] 11:15:00 Test Item Value Reference Range Interpretation Comments MCHC (test code = MCHC) 33.3 32.0-36.0 [facility]EXNHEEFRJ9216-86-57 11:15:00 Test Item Value Reference Range Interpretation Comments RDW (test code = RDW) 18.2 11.5-14.5 [facility] CenterLewwhpxQROLVENQIV4423-44-00 11:15:00 Test Item Value Reference Range Interpretation Comments Platelet (test code = Platelet) 225 133-450 [facility] CenterLueuczkNEXKVIZHPF9119-32-06 11:15:00 Test Item Value Reference Range Interpretation Comments MPV (test code = MPV) 7.2 7.4-10.4 [facility] culture + [id number] 09:33:34 Test Item Value Reference Range Interpretation Comments Result (test code = No fungus isolated in 6463-4) 28 days Fungus Smear (test No fungi seen code = 1406) [facility] culture + [id number] 09:33:34 Test Item Value Reference Range Interpretation Comments Result (test code = No fungus isolated in 6463-4) 28 days Fungus Smear (test No fungi seen code = 1406) [facility] [id number] 09:33:34 Test Item Value Reference Range Interpretation Comments Result (test code = No fungus isolated in 6463-4) 28 days Fungus Smear (test No fungi seen code = 1406) [facility] + [id number] 09:33:34 Test Item Value Reference Range Interpretation Comments Result (test code = No fungus isolated in 6463-4) 28 days Fungus Smear (test No fungi seen code = 1406) [facility] + [id number] 09:33:34 Test Item Value Reference Range Interpretation Comments Result (test code = No fungus isolated in 6463-4) 28 days Fungus Smear (test No fungi seen code = 1406) [facility] + [id number] 09:33:34 Test Item Value Reference Range Interpretation Comments CULTURE (BEAKER) (test No fungus isolated in code = 1095) 28 days FUNGUS SMEAR (BEAKER) No fungi seen (test code = 1406) FUNGUS CULTURE + [id number] 09:33:34 Test Item Value Reference Range Interpretation Comments CULTURE (BEAKER) (test No fungus isolated in code = 1095) 28 days FUNGUS SMEAR (BEAKER) No fungi seen (test code = 1406) FUNGUS CULTURE + [id number] 09:33:34 Test Item Value Reference Range Interpretation Comments CULTURE (BEAKER) (test No fungus isolated in code = 1095) 28 days FUNGUS SMEAR (BEAKER) No fungi seen (test code = 1406) FUNGUS CULTURE + [id number] 09:33:33 Test Item Value Reference Range Interpretation Comments CULTURE (BEAKER) (test No fungus isolated in code = 1095) 28 days FUNGUS SMEAR (BEAKER) No fungi seen (test code = 1406) FUNGUS CULTURE + [id number] 09:33:33 Test Item Value Reference Range Interpretation Comments CULTURE (BEAKER) (test No fungus isolated in code = 1095) 28 days FUNGUS SMEAR (BEAKER) No fungi seen (test code = 1406) [id number] 14:28:04 Test Item Value Reference Range Interpretation Comments RADRPT (test code PROCEDURE INFORMATION: = RADRPT) Exam: XR Left Knee Exam date and time: 11/27/2022 8:25 PM Age: 67 years old Clinical indication: /l knee pain TECHNIQUE: Imaging protocol: Radiologic exam of the left knee. Views: 1 or 2 views. AP and Lateral COMPARISON: No relevant prior studies available. FINDINGS: Bones/joints: Mild medial, moderate lateral and severe patellofemoral compartment osteoarthritis without acute fracture, dislocation or destructive bone lesion. No joint effusion. Moderate patellofemoral joint space loss. Medial and lateral compartment joint spaces are preserved. Soft tissues: No soft tissue edema, air or radiopaque foreign body. Vasculature: Severe femoropopliteal and trifurcation atherosclerosis, best depicted in the lateral view. IMPRESSION: 1. Tricompartmental osteoarthritis without acute osseous abnormality. 2. No heterotopic ossification noted. Alfred Hernandez MD On 11/28/2022 08:26:51; [id number] [facility] HospitalVcrnjlmYCWURT5573-08-20 14:28:04 Test Item Value Reference Range Interpretation Comments RADRPT (test code PROCEDURE INFORMATION: = RADRPT) Exam: XR Left Knee Exam date and time: 11/27/2022 8:25 PM Age: 67 years old Clinical indication: /l knee pain TECHNIQUE: Imaging protocol: Radiologic exam of the left knee. Views: 1 or 2 views. AP and Lateral COMPARISON: No relevant prior studies available. FINDINGS: Bones/joints: Mild medial, moderate lateral and severe patellofemoral compartment osteoarthritis without acute fracture, dislocation or destructive bone lesion. No joint effusion. Moderate patellofemoral joint space loss. Medial and lateral compartment joint spaces are preserved. Soft tissues: No soft tissue edema, air or radiopaque foreign body. Vasculature: Severe femoropopliteal and trifurcation atherosclerosis, best depicted in the lateral view. IMPRESSION: 1. Tricompartmental osteoarthritis without acute osseous abnormality. 2. No heterotopic ossification noted. Alfred Hernandez MD On 11/28/2022 08:26:51; [id number] [facility] [id number] 14:28:04 Test Item Value Reference Range Interpretation Comments RADRPT (test code PROCEDURE INFORMATION: = RADRPT) Exam: XR Left Knee Exam date and time: 11/27/2022 8:25 PM Age: 67 years old Clinical indication: /l knee pain TECHNIQUE: Imaging protocol: Radiologic exam of the left knee. Views: 1 or 2 views. AP and Lateral COMPARISON: No relevant prior studies available. FINDINGS: Bones/joints: Mild medial, moderate lateral and severe patellofemoral compartment osteoarthritis without acute fracture, dislocation or destructive bone lesion. No joint effusion. Moderate patellofemoral joint space loss. Medial and lateral compartment joint spaces are preserved. Soft tissues: No soft tissue edema, air or radiopaque foreign body. Vasculature: Severe femoropopliteal and trifurcation atherosclerosis, best depicted in the lateral view. IMPRESSION: 1. Tricompartmental osteoarthritis without acute osseous abnormality. 2. No heterotopic ossification noted. Alfred Hernandez MD On 11/28/2022 08:26:51; [id number] [facility] [id number] 14:28:04 Test Item Value Reference Range Interpretation Comments RADRPT (test code PROCEDURE INFORMATION: = RADRPT) Exam: XR Left Knee Exam date and time: 11/27/2022 8:25 PM Age: 67 years old Clinical indication: /l knee pain TECHNIQUE: Imaging protocol: Radiologic exam of the left knee. Views: 1 or 2 views. AP and Lateral COMPARISON: No relevant prior studies available. FINDINGS: Bones/joints: Mild medial, moderate lateral and severe patellofemoral compartment osteoarthritis without acute fracture, dislocation or destructive bone lesion. No joint effusion. Moderate patellofemoral joint space loss. Medial and lateral compartment joint spaces are preserved. Soft tissues: No soft tissue edema, air or radiopaque foreign body. Vasculature: Severe femoropopliteal and trifurcation atherosclerosis, best depicted in the lateral view. IMPRESSION: 1. Tricompartmental osteoarthritis without acute osseous abnormality. 2. No heterotopic ossification noted. Alfred Hernandez MD On 11/28/2022 08:26:51; [id number] [facility] [id number] 14:28:04 Test Item Value Reference Range Interpretation Comments RADRPT (test code PROCEDURE INFORMATION: = RADRPT) Exam: XR Left Knee Exam date and time: 11/27/2022 8:25 PM Age: 67 years old Clinical indication: /l knee pain TECHNIQUE: Imaging protocol: Radiologic exam of the left knee. Views: 1 or 2 views. AP and Lateral COMPARISON: No relevant prior studies available. FINDINGS: Bones/joints: Mild medial, moderate lateral and severe patellofemoral compartment osteoarthritis without acute fracture, dislocation or destructive bone lesion. No joint effusion. Moderate patellofemoral joint space loss. Medial and lateral compartment joint spaces are preserved. Soft tissues: No soft tissue edema, air or radiopaque foreign body. Vasculature: Severe femoropopliteal and trifurcation atherosclerosis, best depicted in the lateral view. IMPRESSION: 1. Tricompartmental osteoarthritis without acute osseous abnormality. 2. No heterotopic ossification noted. Alfred Hernandez MD On 11/28/2022 08:26:51; [id number] [id number] 21:29:30 Test Item Value Reference Range Interpretation Comments RADRPT (test code Radiation Dose CTDIVOL = = RADRPT) 59.82 (mGy): DLP = 1066.26 (mGy-cm)PROCEDURE INFORMATION: Exam: CT Head Without Contrast Exam date and time: 11/22/2022 1:38 PM Age: 67 years old Clinical indication: /brain abscess TECHNIQUE: Imaging protocol: Computed tomography of the head without contrast. Radiation optimization: All CT scans at this facility use at least one of these dose optimization techniques: automated exposure control; mA and/or kV adjustment per patient size (includes targeted exams where dose is matched to clinical indication); or iterative reconstruction. REPORTING DATA: Count of CT and Cardiac NM exams in prior 12 months: This patient has received 3 known CTs and 0 known cardiac nuclear medicine studies in the 12 months prior to the current study. COMPARISON: BRAIN WO CONTRAST CT 11/13/2022 3:37 PM RADIATION DOSE METRICS: CTDI volume (mGy): 59.82 Total DLP (mGy-cm): 1066.26 FINDINGS: Brain: There is redemonstration of vasogenic edema in the right frontal lobe with an associated air-fluid level. An extra-axial collection along the right frontal convexity containing fluid and pneumocephalus measures 1.4 cm in depth. Mass effect results in tmtzw-jj-sjka midline shift measuring approximately 7 mm. Findings appears similar to prior examination. Cerebral ventricles: No ventriculomegaly. Paranasal sinuses: Mucosal thickening in the left sphenoid sinus. Mastoid air cells: Visualized mastoid air cells are well aerated. Bones/joints: Mild degenerative changes of the temporomandibular joints. There are postsurgical changes related to a right frontal craniotomy. Soft tissues: Unremarkable. Vasculature: Atherosclerotic calcification of the carotid siphons. IMPRESSION: 1. No significant change from prior examination. 2. Redemonstration of vasogenic edema in the right frontal lobe with an adjacent extra-axial fluid collection. Multiple pockets of air are visualized. 3. Fyvva-fv-lkvw midline shift measures 7 mm. Michael Mcnulty MD On 11/22/2022 15:28:04; [id number] [facility] [id number] 21:29:30 Test Item Value Reference Range Interpretation Comments RADRPT (test code Radiation Dose CTDIVOL = = RADRPT) 59.82 (mGy): DLP = 1066.26 (mGy-cm)PROCEDURE INFORMATION: Exam: CT Head Without Contrast Exam date and time: 11/22/2022 1:38 PM Age: 67 years old Clinical indication: /brain abscess TECHNIQUE: Imaging protocol: Computed tomography of the head without contrast. Radiation optimization: All CT scans at this facility use at least one of these dose optimization techniques: automated exposure control; mA and/or kV adjustment per patient size (includes targeted exams where dose is matched to clinical indication); or iterative reconstruction. REPORTING DATA: Count of CT and Cardiac NM exams in prior 12 months: This patient has received 3 known CTs and 0 known cardiac nuclear medicine studies in the 12 months prior to the current study. COMPARISON: BRAIN WO CONTRAST CT 11/13/2022 3:37 PM RADIATION DOSE METRICS: CTDI volume (mGy): 59.82 Total DLP (mGy-cm): 1066.26 FINDINGS: Brain: There is redemonstration of vasogenic edema in the right frontal lobe with an associated air-fluid level. An extra-axial collection along the right frontal convexity containing fluid and pneumocephalus measures 1.4 cm in depth. Mass effect results in osudu-nl-etmh midline shift measuring approximately 7 mm. Findings appears similar to prior examination. Cerebral ventricles: No ventriculomegaly. Paranasal sinuses: Mucosal thickening in the left sphenoid sinus. Mastoid air cells: Visualized mastoid air cells are well aerated. Bones/joints: Mild degenerative changes of the temporomandibular joints. There are postsurgical changes related to a right frontal craniotomy. Soft tissues: Unremarkable. Vasculature: Atherosclerotic calcification of the carotid siphons. IMPRESSION: 1. No significant change from prior examination. 2. Redemonstration of vasogenic edema in the right frontal lobe with an adjacent extra-axial fluid collection. Multiple pockets of air are visualized. 3. Ztvdd-yq-wifb midline shift measures 7 mm. Michael Mcnulty MD On 11/22/2022 15:28:04; [id number] [facility] [id number] 21:29:30 Test Item Value Reference Range Interpretation Comments RADRPT (test code Radiation Dose CTDIVOL = = RADRPT) 59.82 (mGy): DLP = 1066.26 (mGy-cm)PROCEDURE INFORMATION: Exam: CT Head Without Contrast Exam date and time: 11/22/2022 1:38 PM Age: 67 years old Clinical indication: /brain abscess TECHNIQUE: Imaging protocol: Computed tomography of the head without contrast. Radiation optimization: All CT scans at this facility use at least one of these dose optimization techniques: automated exposure control; mA and/or kV adjustment per patient size (includes targeted exams where dose is matched to clinical indication); or iterative reconstruction. REPORTING DATA: Count of CT and Cardiac NM exams in prior 12 months: This patient has received 3 known CTs and 0 known cardiac nuclear medicine studies in the 12 months prior to the current study. COMPARISON: BRAIN WO CONTRAST CT 11/13/2022 3:37 PM RADIATION DOSE METRICS: CTDI volume (mGy): 59.82 Total DLP (mGy-cm): 1066.26 FINDINGS: Brain: There is redemonstration of vasogenic edema in the right frontal lobe with an associated air-fluid level. An extra-axial collection along the right frontal convexity containing fluid and pneumocephalus measures 1.4 cm in depth. Mass effect results in icbtw-zh-wpvl midline shift measuring approximately 7 mm. Findings appears similar to prior examination. Cerebral ventricles: No ventriculomegaly. Paranasal sinuses: Mucosal thickening in the left sphenoid sinus. Mastoid air cells: Visualized mastoid air cells are well aerated. Bones/joints: Mild degenerative changes of the temporomandibular joints. There are postsurgical changes related to a right frontal craniotomy. Soft tissues: Unremarkable. Vasculature: Atherosclerotic calcification of the carotid siphons. IMPRESSION: 1. No significant change from prior examination. 2. Redemonstration of vasogenic edema in the right frontal lobe with an adjacent extra-axial fluid collection. Multiple pockets of air are visualized. 3. Yfgrp-rl-edqa midline shift measures 7 mm. Michael Mcnulty MD On 11/22/2022 15:28:04; [id number] [facility] [id number] 21:29:30 Test Item Value Reference Range Interpretation Comments RADRPT (test code Radiation Dose CTDIVOL = = RADRPT) 59.82 (mGy): DLP = 1066.26 (mGy-cm)PROCEDURE INFORMATION: Exam: CT Head Without Contrast Exam date and time: 11/22/2022 1:38 PM Age: 67 years old Clinical indication: /brain abscess TECHNIQUE: Imaging protocol: Computed tomography of the head without contrast. Radiation optimization: All CT scans at this facility use at least one of these dose optimization techniques: automated exposure control; mA and/or kV adjustment per patient size (includes targeted exams where dose is matched to clinical indication); or iterative reconstruction. REPORTING DATA: Count of CT and Cardiac NM exams in prior 12 months: This patient has received 3 known CTs and 0 known cardiac nuclear medicine studies in the 12 months prior to the current study. COMPARISON: BRAIN WO CONTRAST CT 11/13/2022 3:37 PM RADIATION DOSE METRICS: CTDI volume (mGy): 59.82 Total DLP (mGy-cm): 1066.26 FINDINGS: Brain: There is redemonstration of vasogenic edema in the right frontal lobe with an associated air-fluid level. An extra-axial collection along the right frontal convexity containing fluid and pneumocephalus measures 1.4 cm in depth. Mass effect results in qaypz-gq-pbqx midline shift measuring approximately 7 mm. Findings appears similar to prior examination. Cerebral ventricles: No ventriculomegaly. Paranasal sinuses: Mucosal thickening in the left sphenoid sinus. Mastoid air cells: Visualized mastoid air cells are well aerated. Bones/joints: Mild degenerative changes of the temporomandibular joints. There are postsurgical changes related to a right frontal craniotomy. Soft tissues: Unremarkable. Vasculature: Atherosclerotic calcification of the carotid siphons. IMPRESSION: 1. No significant change from prior examination. 2. Redemonstration of vasogenic edema in the right frontal lobe with an adjacent extra-axial fluid collection. Multiple pockets of air are visualized. 3. Vspom-wi-jaku midline shift measures 7 mm. Michael Mcnulty MD On 11/22/2022 15:28:04; [id number] [facility] [id number] 21:29:30 Test Item Value Reference Range Interpretation Comments RADRPT (test code Radiation Dose CTDIVOL = = RADRPT) 59.82 (mGy): DLP = 1066.26 (mGy-cm)PROCEDURE INFORMATION: Exam: CT Head Without Contrast Exam date and time: 11/22/2022 1:38 PM Age: 67 years old Clinical indication: /brain abscess TECHNIQUE: Imaging protocol: Computed tomography of the head without contrast. Radiation optimization: All CT scans at this facility use at least one of these dose optimization techniques: automated exposure control; mA and/or kV adjustment per patient size (includes targeted exams where dose is matched to clinical indication); or iterative reconstruction. REPORTING DATA: Count of CT and Cardiac NM exams in prior 12 months: This patient has received 3 known CTs and 0 known cardiac nuclear medicine studies in the 12 months prior to the current study. COMPARISON: BRAIN WO CONTRAST CT 11/13/2022 3:37 PM RADIATION DOSE METRICS: CTDI volume (mGy): 59.82 Total DLP (mGy-cm): 1066.26 FINDINGS: Brain: There is redemonstration of vasogenic edema in the right frontal lobe with an associated air-fluid level. An extra-axial collection along the right frontal convexity containing fluid and pneumocephalus measures 1.4 cm in depth. Mass effect results in oxfuc-du-rqjt midline shift measuring approximately 7 mm. Findings appears similar to prior examination. Cerebral ventricles: No ventriculomegaly. Paranasal sinuses: Mucosal thickening in the left sphenoid sinus. Mastoid air cells: Visualized mastoid air cells are well aerated. Bones/joints: Mild degenerative changes of the temporomandibular joints. There are postsurgical changes related to a right frontal craniotomy. Soft tissues: Unremarkable. Vasculature: Atherosclerotic calcification of the carotid siphons. IMPRESSION: 1. No significant change from prior examination. 2. Redemonstration of vasogenic edema in the right frontal lobe with an adjacent extra-axial fluid collection. Multiple pockets of air are visualized. 3. Ymiyu-yd-pebc midline shift measures 7 mm. Michael Mcnulty MD On 11/22/2022 15:28:04; [id number] [facility] [id number] 20:31:58 Test Item Value Reference Range Interpretation Comments RADRPT (test code PROCEDURE INFORMATION: = RADRPT) Exam: XR Abdomen Exam date and time: 11/22/2022 1:00 PM Age: 67 years old Clinical indication: /admission TECHNIQUE: Imaging protocol: Radiologic exam of the abdomen. Views: Frontal supine view of the abdomen. 1 View. COMPARISON: ABDOMEN AP DX 11/06/2022 6:06 PM FINDINGS: Tubes, catheters and devices: Hernia mesh projects over the lower abdomen. Gastrointestinal tract: There is a non-obstructive bowel gas pattern. There is no abnormal dilatation of bowel loops. There is no pneumatosis or mass effect. Bones/joints: Unremarkable. Soft tissues: No abnormal radiopaque densities. IMPRESSION: No acute findings. Jonah Goncalves MD On 11/22/2022 14:31:39; [id number] [facility] HospitalJsixhrnYTWCWW8654-60-56 20:31:58 Test Item Value Reference Range Interpretation Comments RADRPT (test code PROCEDURE INFORMATION: = RADRPT) Exam: XR Abdomen Exam date and time: 11/22/2022 1:00 PM Age: 67 years old Clinical indication: /admission TECHNIQUE: Imaging protocol: Radiologic exam of the abdomen. Views: Frontal supine view of the abdomen. 1 View. COMPARISON: ABDOMEN AP DX 11/06/2022 6:06 PM FINDINGS: Tubes, catheters and devices: Hernia mesh projects over the lower abdomen. Gastrointestinal tract: There is a non-obstructive bowel gas pattern. There is no abnormal dilatation of bowel loops. There is no pneumatosis or mass effect. Bones/joints: Unremarkable. Soft tissues: No abnormal radiopaque densities. IMPRESSION: No acute findings. Jonah Goncalves MD On 11/22/2022 14:31:39; [id number] [facility] HospitalHiapbajLFYVGF2512-41-11 20:31:58 Test Item Value Reference Range Interpretation Comments RADRPT (test code PROCEDURE INFORMATION: = RADRPT) Exam: XR Abdomen Exam date and time: 11/22/2022 1:00 PM Age: 67 years old Clinical indication: /admission TECHNIQUE: Imaging protocol: Radiologic exam of the abdomen. Views: Frontal supine view of the abdomen. 1 View. COMPARISON: ABDOMEN AP DX 11/06/2022 6:06 PM FINDINGS: Tubes, catheters and devices: Hernia mesh projects over the lower abdomen. Gastrointestinal tract: There is a non-obstructive bowel gas pattern. There is no abnormal dilatation of bowel loops. There is no pneumatosis or mass effect. Bones/joints: Unremarkable. Soft tissues: No abnormal radiopaque densities. IMPRESSION: No acute findings. Jonah Goncalves MD On 11/22/2022 14:31:39; [id number]___[id number] [facility] HospitalBswcbqnCQBIJK7905-29-49 20:31:58 Test Item Value Reference Range Interpretation Comments RADRPT (test code PROCEDURE INFORMATION: = RADRPT) Exam: XR Abdomen Exam date and time: 11/22/2022 1:00 PM Age: 67 years old Clinical indication: /admission TECHNIQUE: Imaging protocol: Radiologic exam of the abdomen. Views: Frontal supine view of the abdomen. 1 View. COMPARISON: ABDOMEN AP DX 11/06/2022 6:06 PM FINDINGS: Tubes, catheters and devices: Hernia mesh projects over the lower abdomen. Gastrointestinal tract: There is a non-obstructive bowel gas pattern. There is no abnormal dilatation of bowel loops. There is no pneumatosis or mass effect. Bones/joints: Unremarkable. Soft tissues: No abnormal radiopaque densities. IMPRESSION: No acute findings. Jonah Goncalves MD On 11/22/2022 14:31:39; [id number]___[id number] [facility] [id number] 20:31:58 Test Item Value Reference Range Interpretation Comments RADRPT (test code PROCEDURE INFORMATION: = RADRPT) Exam: XR Abdomen Exam date and time: 11/22/2022 1:00 PM Age: 67 years old Clinical indication: /admission TECHNIQUE: Imaging protocol: Radiologic exam of the abdomen. Views: Frontal supine view of the abdomen. 1 View. COMPARISON: ABDOMEN AP DX 11/06/2022 6:06 PM FINDINGS: Tubes, catheters and devices: Hernia mesh projects over the lower abdomen. Gastrointestinal tract: There is a non-obstructive bowel gas pattern. There is no abnormal dilatation of bowel loops. There is no pneumatosis or mass effect. Bones/joints: Unremarkable. Soft tissues: No abnormal radiopaque densities. IMPRESSION: No acute findings. Jonah Goncalves MD On 11/22/2022 14:31:39; [id number]___[id number] Delmer Marc AND [id number] 09:11:00 Test Item Value Reference Range Interpretation Comments UA Sq Epi (test code = UA Sq Occasional /LPF Epi) [facility] Monico AND [id number] 09:11:00 Test Item Value Reference Range Interpretation Comments UA WBC (test code = 7 See_Comment [Automa tara message] The UA WBC) system which ge nerated this result transmit tara reference range : <=5. The reference range was not used to interpr et this result as rory l/abnormal. Delmer Marc AND [id number] 09:11:00 Test Item Value Reference Range Interpretation Comments UA RBC (test code = 27 See_Comment [Automa tara message] The UA RBC) system which ge nerated this result transmit tara reference range : <=2. The reference range was not used to interpr et this result as rory l/abnormal. [facility] [id number] 09:11:00 Test Item Value Reference Range Interpretation Comments UA Bacteria (test code = UA Moderate /HPF Bacteria) [facility] [id number] 09:11:00 Test Item Value Reference Range Interpretation Comments UA Mucus (test code = UA Mucus) Few /LPF [facility] AND [id number] 09:11:00 Test Item Value Reference Range Interpretation Comments UA Amorph Katrin (test code = Occasional /HPF UA Amorph Katrin) [facility] AND [id number] 09:11:00 Test Item Value Reference Range Interpretation Comments UA Glucose (test code = UA Glucose) 50mg/dl [facility] AND [id number] 09:11:00 Test Item Value Reference Range Interpretation Comments UA Comment 1 (test Suboptimal specimen code = UA Comment 1) received. Results may be inaccurate due to the age of the specimen. Interpret results with caution. [facility] AliceMdvzdlaITHWTJRZK9275-42-67 09:11:00 Test Item Value Reference Range Interpretation Comments Total Protein (test code = Total 6.3 6.4-8.4 Protein) [facility] AliceKjyuzrmEURGYDUPD1612-22-15 09:11:00 Test Item Value Reference Range Interpretation Comments Albumin Lvl (test code = Albumin Lvl) 2.4 3.5-5.0 [facility] AliceTrkmiuiLXIIGFBEV5263-52-47 09:11:00 Test Item Value Reference Range Interpretation Comments ALT (test code = ALT) 55 See_Comment [Auto mated message] The system which ge nerated this result transmit tara reference range : <=65. The reference range was not used to interpr et this result as rory l/abnormal. [facility] AliceSkjssxgZVDNTUFZA3248-20-03 09:11:00 Test Item Value Reference Range Interpretation Comments AST (test code = AST) 35 See_Comment [Auto mated message] The system which ge nerated this result transmit tara reference range : <=37. The reference range was not used to interpr et this result as rory l/abnormal. [facility] AliceKbjqninSIFCNAGNJ8865-13-68 09:11:00 Test Item Value Reference Range Interpretation Comments Alk Phos (test code = Alk Phos) 101 39-136 [facility] AliceTwekjwsQHRVXKYPK9059-14-25 09:11:00 Test Item Value Reference Range Interpretation Comments Bili Total (test code = Bili Total) 0.3 0.2-1.3 [facility] AliceXsqnbanWVHEYTMNP0529-98-04 09:11:00 Test Item Value Reference Range Interpretation Comments B/C Ratio (test code = B/C Ratio) 10 1 6-25 [facility] AliceEgrooccWINPMUBGS6987-78-95 09:11:00 Test Item Value Reference Range Interpretation Comments Globulin (test code = Globulin) 3.9 2.7-4.2 [facility] AliceWclqvboBDRRPSTIS6421-72-03 09:11:00 Test Item Value Reference Range Interpretation Comments A/G Ratio (test code = A/G Ratio) 0.6 1 0.7-1.6 [facility] AliceEyjfwtpDZMKBHRAS1707-56-41 09:11:00 Test Item Value Reference Range Interpretation Comments Hgb A1C (test code = Hgb A1C) 7.5 [facility] AliceXmnsarpXIWMJKTCB6299-93-16 09:11:00 Test Item Value Reference Range Interpretation Comments Trig (test code = Trig) 151 [facility] AliceXcmdpyuCZBSDTHLN5614-33-95 09:11:00 Test Item Value Reference Range Interpretation Comments Chol (test code = Chol) 111 [facility] AliceLniymvkOCNMIXJJQ3479-18-65 09:11:00 Test Item Value Reference Range Interpretation Comments HDL (test code = HDL) 32 [facility] AliceYzkmnyrBBCTMLXUQ7049-54-97 09:11:00 Test Item Value Reference Range Interpretation Comments Chol/HDL Ratio (test code = Chol/HDL 3.47 1 3.90-5.80 Ratio) [facility] AliceFemstqoLELWCWQKF0310-80-47 09:11:00 Test Item Value Reference Range Interpretation Comments LDL (Calculated) (test code = LDL 49 (Calculated)) [facility] AliceIgpqhmwYSLLOWGOZ6172-22-85 09:11:00 Test Item Value Reference Range Interpretation Comments VLDL (test code = VLDL) 30 1 [facility] AliceXvlagxsUARCRXQHK1788-63-58 09:11:00 Test Item Value Reference Range Interpretation Comments Uric Acid (test code = Uric Acid) 5.3 2.5-7.0 [facility] AliceXgwaeajNGAICFFDH0022-20-62 09:11:00 Test Item Value Reference Range Interpretation Comments TSH (test code = TSH) 1.810 0.360-3.740 [facility]MsnkpgnPLSDTYBYKU5494-38-51 09:11:00 Test Item Value Reference Range Interpretation Comments Prealbumin (test code = Prealbumin) 24.6 18.0-45.0 [facility] [id number] 09:11:00 Test Item Value Reference Range Interpretation Comments UA Color (test code = [place] *ABN*(11/22/22 UA Color) 3:11 AM) [facility] [id number] 09:11:00 Test Item Value Reference Range Interpretation Comments UA Turbidity (test code Marked *ABN*(11/22/22 = UA Turbidity) 3:11 AM) [facility] [id number] 09:11:00 Test Item Value Reference Range Interpretation Comments UA Spec Grav (test code = UA Spec 1.013 1 Grav) [facility] [id number] 09:11:00 Test Item Value Reference Range Interpretation Comments UA pH (test code = UA pH) 7.0 1 5.0-8.0 [facility] [id number] 09:11:00 Test Item Value Reference Range Interpretation Comments UA Protein (test code = UA Protein) 100 mg/dL [facility] AND [id number] 09:11:00 Test Item Value Reference Range Interpretation Comments UA Ketones (test code = UA Negative mg/dL Ketones) [facility] [id number] 09:11:00 Test Item Value Reference Range Interpretation Comments UA Bili (test code = Negative *NA*(11/22/22 UA Bili) 3:11 AM) [facility] [id number] 09:11:00 Test Item Value Reference Range Interpretation Comments UA Blood (test code = Moderate *ABN*(11/22/22 UA Blood) 3:11 AM) [facility] [id number] 09:11:00 Test Item Value Reference Range Interpretation Comments UA Urobilinogen (test code = UA 2.0 0.1-1.0 Urobilinogen) [facility] [id number] 09:11:00 Test Item Value Reference Range Interpretation Comments UA Nitrite (test code Negative (11/22/22 3:11 = UA Nitrite) AM) [facility] [id number] 09:11:00 Test Item Value Reference Range Interpretation Comments UA Leuk Est (test code Large *ABN*(11/22/22 3:11 = UA Leuk Est) AM) [facility] [id number] 09:11:00 Test Item Value Reference Range Interpretation Comments UA Sq Epi (test code = UA Sq Occasional /LPF Epi) [facility] [id number] 09:11:00 Test Item Value Reference Range Interpretation Comments UA WBC (test code = 7 See_Comment [Automa tara message] The UA WBC) system which ge nerated this result transmit tara reference range : <=5. The reference range was not used to interpr et this result as rory l/abnormal. [facility] [id number] 09:11:00 Test Item Value Reference Range Interpretation Comments UA RBC (test code = 27 See_Comment [Automa tara message] The UA RBC) system which ge nerated this result transmit tara reference range : <=2. The reference range was not used to interpr et this result as rory l/abnormal. [facility] [id number] 09:11:00 Test Item Value Reference Range Interpretation Comments UA Bacteria (test code = UA Moderate /HPF Bacteria) [facility] [id number] 09:11:00 Test Item Value Reference Range Interpretation Comments UA Mucus (test code = UA Mucus) Few /LPF [facility] [id number] 09:11:00 Test Item Value Reference Range Interpretation Comments UA Amorph Katrin (test code = Occasional /HPF UA Amorph Katrin) [facility] [id number] 09:11:00 Test Item Value Reference Range Interpretation Comments UA Glucose (test code = UA Glucose) 50mg/dl [facility] [id number] 09:11:00 Test Item Value Reference Range Interpretation Comments UA Comment 1 (test Suboptimal specimen code = UA Comment 1) received. Results may be inaccurate due to the age of the specimen. Interpret results with caution. [facility] UgxluouELOQLWVRI0885-96-33 09:11:00 Test Item Value Reference Range Interpretation Comments Total Protein (test code = Total 6.3 6.4-8.4 Protein) [facility]WelzzhdAHHAADGNA8958-13-27 09:11:00 Test Item Value Reference Range Interpretation Comments Albumin Lvl (test code = Albumin Lvl) 2.4 3.5-5.0 [facility] VudffdkGVANXRJBV1839-84-07 09:11:00 Test Item Value Reference Range Interpretation Comments ALT (test code = ALT) 55 See_Comment [Auto mated message] The system which ge nerated this result transmit tara reference range : <=65. The reference range was not used to interpr et this result as rory l/abnormal. [facility] QphjkmrSFDWGBFBU9761-69-76 09:11:00 Test Item Value Reference Range Interpretation Comments AST (test code = AST) 35 See_Comment [Auto mated message] The system which ge nerated this result transmit tara reference range : <=37. The reference range was not used to interpr et this result as rory l/abnormal. [facility] IdxfokeERYXSLDYJ1831-99-72 09:11:00 Test Item Value Reference Range Interpretation Comments Alk Phos (test code = Alk Phos) 101 39-136 [facility] AnobfevRWXNGJXPO4527-84-21 09:11:00 Test Item Value Reference Range Interpretation Comments Bili Total (test code = Bili Total) 0.3 0.2-1.3 [facility] VwflyylJORXGENUG6164-00-00 09:11:00 Test Item Value Reference Range Interpretation Comments B/C Ratio (test code = B/C Ratio) 10 1 6-25 [facility] XqtytlzJYJZYVIWA2794-47-05 09:11:00 Test Item Value Reference Range Interpretation Comments Globulin (test code = Globulin) 3.9 2.7-4.2 [facility] DsyjaafPIHPZKUDX5730-15-42 09:11:00 Test Item Value Reference Range Interpretation Comments A/G Ratio (test code = A/G Ratio) 0.6 1 0.7-1.6 [facility] WvqvkjdXAQZTIKDX2504-42-13 09:11:00 Test Item Value Reference Range Interpretation Comments Hgb A1C (test code = Hgb A1C) 7.5 [facility] FaekqrmOJQAOFJTI6027-90-76 09:11:00 Test Item Value Reference Range Interpretation Comments Trig (test code = Trig) 151 [facility] KnemujqJOLVOMOLU5731-50-62 09:11:00 Test Item Value Reference Range Interpretation Comments Chol (test code = Chol) 111 [facility] ZmrawoaQFHKRXJWS5228-98-14 09:11:00 Test Item Value Reference Range Interpretation Comments HDL (test code = HDL) 32 [facility] HospitalEchaqphFFNHKWQRE2891-93-37 09:11:00 Test Item Value Reference Range Interpretation Comments Chol/HDL Ratio (test code = Chol/HDL 3.47 1 3.90-5.80 Ratio) [facility] AliceLobseyvIFJKFTIQK6585-52-40 09:11:00 Test Item Value Reference Range Interpretation Comments LDL (Calculated) (test code = LDL 49 (Calculated)) [facility] AliceUkznyeaLQJNMUPHJ1521-76-25 09:11:00 Test Item Value Reference Range Interpretation Comments VLDL (test code = VLDL) 30 1 [facility]SctdqtoNMINFJHSI1991-75-96 09:11:00 Test Item Value Reference Range Interpretation Comments Uric Acid (test code = Uric Acid) 5.3 2.5-7.0 [facility] AliceZvcgqjfEMFASMGUP7987-27-76 09:11:00 Test Item Value Reference Range Interpretation Comments TSH (test code = TSH) 1.810 0.360-3.740 [facility] HospitalPdvgdzwQJEBQVVSMB7933-18-82 09:11:00 Test Item Value Reference Range Interpretation Comments Prealbumin (test code = Prealbumin) 24.6 18.0-45.0 [facility] AND [id number] 09:11:00 Test Item Value Reference Range Interpretation Comments UA Color (test code = [place] *ABN*(11/22/22 UA Color) 3:11 AM) [facility] AND [id number] 09:11:00 Test Item Value Reference Range Interpretation Comments UA Turbidity (test code Marked *ABN*(11/22/22 = UA Turbidity) 3:11 AM) [facility] [id number] 09:11:00 Test Item Value Reference Range Interpretation Comments UA Spec Grav (test code = UA Spec 1.013 1 Grav) [facility] [id number] 09:11:00 Test Item Value Reference Range Interpretation Comments UA pH (test code = UA pH) 7.0 1 5.0-8.0 [facility] [id number] 09:11:00 Test Item Value Reference Range Interpretation Comments UA Protein (test code = UA Protein) 100 mg/dL [facility] AND [id number] 09:11:00 Test Item Value Reference Range Interpretation Comments UA Ketones (test code = UA Negative mg/dL Ketones) [facility] [id number] 09:11:00 Test Item Value Reference Range Interpretation Comments UA Bili (test code = Negative *NA*(11/22/22 UA Bili) 3:11 AM) [facility] [id number] 09:11:00 Test Item Value Reference Range Interpretation Comments UA Blood (test code = Moderate *ABN*(11/22/22 UA Blood) 3:11 AM) [facility] [id number] 09:11:00 Test Item Value Reference Range Interpretation Comments UA Urobilinogen (test code = UA 2.0 0.1-1.0 Urobilinogen) [facility] [id number] 09:11:00 Test Item Value Reference Range Interpretation Comments UA Nitrite (test code Negative (11/22/22 3:11 = UA Nitrite) AM) [facility] [id number] 09:11:00 Test Item Value Reference Range Interpretation Comments UA Leuk Est (test code Large *ABN*(11/22/22 3:11 = UA Leuk Est) AM) [facility] [id number] 09:11:00 Test Item Value Reference Range Interpretation Comments UA Sq Epi (test code = UA Sq Occasional /LPF Epi) [facility] [id number] 09:11:00 Test Item Value Reference Range Interpretation Comments UA WBC (test code = 7 See_Comment [Automa tara message] The UA WBC) system which ge nerated this result transmit tara reference range : <=5. The reference range was not used to interpr et this result as rory l/abnormal. [facility] [id number] 09:11:00 Test Item Value Reference Range Interpretation Comments UA RBC (test code = 27 See_Comment [Automa tara message] The UA RBC) system which ge nerated this result transmit tara reference range : <=2. The reference range was not used to interpr et this result as rory l/abnormal. [facility] [id number] 09:11:00 Test Item Value Reference Range Interpretation Comments UA Bacteria (test code = UA Moderate /HPF Bacteria) [facility] [id number] 09:11:00 Test Item Value Reference Range Interpretation Comments UA Mucus (test code = UA Mucus) Few /LPF [facility] AND [id number] 09:11:00 Test Item Value Reference Range Interpretation Comments UA Amorph Katrin (test code = Occasional /HPF UA Amorph Katrin) [facility] AND [id number] 09:11:00 Test Item Value Reference Range Interpretation Comments UA Glucose (test code = UA Glucose) 50mg/dl [facility] AND [id number] 09:11:00 Test Item Value Reference Range Interpretation Comments UA Comment 1 (test Suboptimal specimen code = UA Comment 1) received. Results may be inaccurate due to the age of the specimen. Interpret results with caution. [facility] AliceEsnnwtlGZIYXXYVV3309-31-07 09:11:00 Test Item Value Reference Range Interpretation Comments Total Protein (test code = Total 6.3 6.4-8.4 Protein) [facility] AliceTdmpywiWIDNJPPXJ5511-22-34 09:11:00 Test Item Value Reference Range Interpretation Comments Albumin Lvl (test code = Albumin Lvl) 2.4 3.5-5.0 [facility] AliceZsprgsnDMUNHRHMS8684-01-65 09:11:00 Test Item Value Reference Range Interpretation Comments ALT (test code = ALT) 55 See_Comment [Auto mated message] The system which ge nerated this result transmit tara reference range : <=65. The reference range was not used to interpr et this result as rory l/abnormal. [facility] AliceChzvoldVSRKKBVMD2788-65-22 09:11:00 Test Item Value Reference Range Interpretation Comments AST (test code = AST) 35 See_Comment [Auto mated message] The system which ge nerated this result transmit tara reference range : <=37. The reference range was not used to interpr et this result as rory l/abnormal. [facility] AliceFxqkcvbKEOJLJXFP1586-79-83 09:11:00 Test Item Value Reference Range Interpretation Comments Alk Phos (test code = Alk Phos) 101 39-136 [facility] AliceHnrxnnzPKGZEUIBE0178-71-36 09:11:00 Test Item Value Reference Range Interpretation Comments Bili Total (test code = Bili Total) 0.3 0.2-1.3 [facility] AliceUxxeugtATNMOHDDM6076-72-92 09:11:00 Test Item Value Reference Range Interpretation Comments B/C Ratio (test code = B/C Ratio) 10 1 6-25 [facility] AliceYmxnltaUFHFCAGBM0318-42-43 09:11:00 Test Item Value Reference Range Interpretation Comments Globulin (test code = Globulin) 3.9 2.7-4.2 [facility] AliceKjykelzTFJVADUQF3223-69-33 09:11:00 Test Item Value Reference Range Interpretation Comments A/G Ratio (test code = A/G Ratio) 0.6 1 0.7-1.6 [facility] AliceOjgjzikNHHUVTRGR0218-47-57 09:11:00 Test Item Value Reference Range Interpretation Comments Hgb A1C (test code = Hgb A1C) 7.5 [facility] AliceMlzkgjxFNPFTXQYU5421-91-72 09:11:00 Test Item Value Reference Range Interpretation Comments Trig (test code = Trig) 151 [facility] AliceBhgwlcoZURORXGUU8812-51-38 09:11:00 Test Item Value Reference Range Interpretation Comments Chol (test code = Chol) 111 [facility] AliceXyhrpccPWMETMUJE8293-29-56 09:11:00 Test Item Value Reference Range Interpretation Comments HDL (test code = HDL) 32 [facility] AliceNhbjatrBLWHFIHDA3170-47-16 09:11:00 Test Item Value Reference Range Interpretation Comments Chol (test code = Chol) 111 [facility] AlicePgplvjkOXYWKJXAY6024-65-14 09:11:00 Test Item Value Reference Range Interpretation Comments Chol/HDL Ratio (test code = Chol/HDL 3.47 1 3.90-5.80 Ratio) [facility] AliceSqlcbnhTYSMFHHUE0280-39-90 09:11:00 Test Item Value Reference Range Interpretation Comments LDL (Calculated) (test code = LDL 49 (Calculated)) [facility] AliceCoeklefKMMJDELRX0945-87-34 09:11:00 Test Item Value Reference Range Interpretation Comments VLDL (test code = VLDL) 30 1 [facility] AliceXnhipglYXQJQSNUY2418-82-02 09:11:00 Test Item Value Reference Range Interpretation Comments Uric Acid (test code = Uric Acid) 5.3 2.5-7.0 [facility] AliceOmftigcNUVCCRMGL9517-89-24 09:11:00 Test Item Value Reference Range Interpretation Comments TSH (test code = TSH) 1.810 0.360-3.740 [facility]HddjkfsVBGLRXBXEE4739-81-91 09:11:00 Test Item Value Reference Range Interpretation Comments Prealbumin (test code = Prealbumin) 24.6 18.0-45.0 [facility] AND [id number] 09:11:00 Test Item Value Reference Range Interpretation Comments UA Color (test code = [place] *ABN*(11/22/22 UA Color) 3:11 AM) [facility] [id number] 09:11:00 Test Item Value Reference Range Interpretation Comments UA Turbidity (test code Marked *ABN*(11/22/22 = UA Turbidity) 3:11 AM) [facility] AND [id number] 09:11:00 Test Item Value Reference Range Interpretation Comments UA Spec Grav (test code = UA Spec 1.013 1 Grav) [facility] AND [id number] 09:11:00 Test Item Value Reference Range Interpretation Comments UA pH (test code = UA pH) 7.0 1 5.0-8.0 [facility] AND [id number] 09:11:00 Test Item Value Reference Range Interpretation Comments UA Protein (test code = UA Protein) 100 mg/dL [facility] AND [id number] 09:11:00 Test Item Value Reference Range Interpretation Comments UA Ketones (test code = UA Negative mg/dL Ketones) [facility] AND [id number] 09:11:00 Test Item Value Reference Range Interpretation Comments UA Bili (test code = Negative *NA*(11/22/22 UA Bili) 3:11 AM) [facility] AND [id number] 09:11:00 Test Item Value Reference Range Interpretation Comments UA Blood (test code = Moderate *ABN*(11/22/22 UA Blood) 3:11 AM) [facility] AND [id number] 09:11:00 Test Item Value Reference Range Interpretation Comments UA Urobilinogen (test code = UA 2.0 0.1-1.0 Urobilinogen) [facility] AND [id number] 09:11:00 Test Item Value Reference Range Interpretation Comments UA Nitrite (test code Negative (11/22/22 3:11 = UA Nitrite) AM) [facility] AND [id number] 09:11:00 Test Item Value Reference Range Interpretation Comments UA Leuk Est (test code Large *ABN*(11/22/22 3:11 = UA Leuk Est) AM) [facility] [id number] 09:11:00 Test Item Value Reference Range Interpretation Comments UA Sq Epi (test code = UA Sq Occasional /LPF Epi) [facility] [id number] 09:11:00 Test Item Value Reference Range Interpretation Comments UA WBC (test code = 7 See_Comment [Automa tara message] The UA WBC) system which ge nerated this result transmit tara reference range : <=5. The reference range was not used to interpr et this result as rory l/abnormal. [facility] [id number] 09:11:00 Test Item Value Reference Range Interpretation Comments UA RBC (test code = 27 See_Comment [Automa tara message] The UA RBC) system which ge nerated this result transmit tara reference range : <=2. The reference range was not used to interpr et this result as rory l/abnormal. [facility] YyxdunwBHYIBBQWJ9196-53-51 09:11:00 Test Item Value Reference Range Interpretation Comments HDL (test code = HDL) 32 [facility] [id number] 09:11:00 Test Item Value Reference Range Interpretation Comments UA Bacteria (test code = UA Moderate /HPF Bacteria) [facility] [id number] 09:11:00 Test Item Value Reference Range Interpretation Comments UA Mucus (test code = UA Mucus) Few /LPF [facility] [id number] 09:11:00 Test Item Value Reference Range Interpretation Comments UA Amorph Katrin (test code = Occasional /HPF UA Amorph Katrin) [facility] [id number] 09:11:00 Test Item Value Reference Range Interpretation Comments UA Glucose (test code = UA Glucose) 50mg/dl [facility] [id number] 09:11:00 Test Item Value Reference Range Interpretation Comments UA Comment 1 (test Suboptimal specimen code = UA Comment 1) received. Results may be inaccurate due to the age of the specimen. Interpret results with caution. [facility] JlimevaPQJBYWZHW3348-76-51 09:11:00 Test Item Value Reference Range Interpretation Comments Total Protein (test code = Total 6.3 6.4-8.4 Protein) [facility] CenterBczuvapTNWKMSKQT4305-89-31 09:11:00 Test Item Value Reference Range Interpretation Comments Albumin Lvl (test code = Albumin Lvl) 2.4 3.5-5.0 [facility] IlthduzMFCFYYHLQ7677-22-54 09:11:00 Test Item Value Reference Range Interpretation Comments Chol/HDL Ratio (test code = Chol/HDL 3.47 1 3.90-5.80 Ratio) [facility] EufwxvmYHCESYWIQ8210-19-30 09:11:00 Test Item Value Reference Range Interpretation Comments ALT (test code = ALT) 55 See_Comment [Auto mated message] The system which ge nerated this result transmit tara reference range : <=65. The reference range was not used to interpr et this result as rory l/abnormal. [facility] VuxsqofPDUQBJECG4835-78-86 09:11:00 Test Item Value Reference Range Interpretation Comments AST (test code = AST) 35 See_Comment [Auto mated message] The system which ge nerated this result transmit tara reference range : <=37. The reference range was not used to interpr et this result as rory l/abnormal. [facility] KknstihGNTUYWOJG9205-18-36 09:11:00 Test Item Value Reference Range Interpretation Comments Alk Phos (test code = Alk Phos) 101 39-136 [facility] IiabgnbJWBUCTUBE6049-79-45 09:11:00 Test Item Value Reference Range Interpretation Comments Bili Total (test code = Bili Total) 0.3 0.2-1.3 [facility] WsiedafLFGRZOIYM5389-69-74 09:11:00 Test Item Value Reference Range Interpretation Comments B/C Ratio (test code = B/C Ratio) 10 1 6-25 [facility] QxpdnpkRLQKRYFTZ3035-09-25 09:11:00 Test Item Value Reference Range Interpretation Comments Globulin (test code = Globulin) 3.9 2.7-4.2 [facility] PyiobklFGXFKWFVZ3272-83-29 09:11:00 Test Item Value Reference Range Interpretation Comments A/G Ratio (test code = A/G Ratio) 0.6 1 0.7-1.6 [facility] UpqvmbuNJGNYUAHQ7370-05-91 09:11:00 Test Item Value Reference Range Interpretation Comments Hgb A1C (test code = Hgb A1C) 7.5 [facility] LbgkdrgYRPDPHKUX3281-50-00 09:11:00 Test Item Value Reference Range Interpretation Comments Trig (test code = Trig) 151 [facility] TwpxiajJYXUFNAIW6711-26-38 09:11:00 Test Item Value Reference Range Interpretation Comments LDL (Calculated) (test code = LDL 49 (Calculated)) [facility] AliceWbishnvUDUGFQTUQ[facility] 09:11:00 Test Item Value Reference Range Interpretation Comments VLDL (test code = VLDL) 30 1 [facility]ASWSIHYQ3124-59-18 09:11:00 Test Item Value Reference Range Interpretation Comments Uric Acid (test code = Uric Acid) 5.3 2.5-7.0 [facility] TtzyjzrOYVDCZMUR2104-04-04 09:11:00 Test Item Value Reference Range Interpretation Comments TSH (test code = TSH) 1.810 0.360-3.740 [facility] ZoiopwyTGHDFVGLFJ0575-29-24 09:11:00 Test Item Value Reference Range Interpretation Comments Prealbumin (test code = Prealbumin) 24.6 18.0-45.0 [facility] AND [id number] 09:11:00 Test Item Value Reference Range Interpretation Comments UA Color (test code = [place] *ABN*(11/22/22 UA Color) 3:11 AM) [facility] [id number] 09:11:00 Test Item Value Reference Range Interpretation Comments UA Turbidity (test code Marked *ABN*(11/22/22 = UA Turbidity) 3:11 AM) [facility] NWKWD9220-03-10 09:11:00 Test Item Value Reference Range Interpretation Comments UA Spec Grav (test code = UA Spec 1.013 1 Grav) [facility] AliceNjzjmpuBYLPWRRNE8953-36-78 09:11:00 Test Item Value Reference Range Interpretation Comments Chol (test code = Chol) 111 [facility]zjuynvSRSFYJWQL8809-70-29 09:11:00 Test Item Value Reference Range Interpretation Comments HDL (test code = HDL) 32 [facility]OqikgidVBJZRFVVD4379-14-60 09:11:00 Test Item Value Reference Range Interpretation Comments Chol/HDL Ratio (test code = Chol/HDL 3.47 1 3.90-5.80 Ratio) [facility] AliceIfybhttBCZIWRECG6130-97-72 09:11:00 Test Item Value Reference Range Interpretation Comments LDL (Calculated) (test code = LDL 49 (Calculated)) [facility] AlicePvocetbWHSKXCQUF7582-47-98 09:11:00 Test Item Value Reference Range Interpretation Comments VLDL (test code = VLDL) 30 1 [facility] PyephqyFIRRVCOXX2017-03-16 09:11:00 Test Item Value Reference Range Interpretation Comments Uric Acid (test code = Uric Acid) 5.3 2.5-7.0 [facility] [id number] 09:11:00 Test Item Value Reference Range Interpretation Comments UA pH (test code = UA pH) 7.0 1 5.0-8.0 [facility] XznqvkjEOTXYSJNH3374-06-21 09:11:00 Test Item Value Reference Range Interpretation Comments TSH (test code = TSH) 1.810 0.360-3.740 [facility] LlkzlvpVPEOLNOQAL6493-33-06 09:11:00 Test Item Value Reference Range Interpretation Comments Prealbumin (test code = Prealbumin) 24.6 18.0-45.0 [facility] [id number] 09:11:00 Test Item Value Reference Range Interpretation Comments UA Color (test code = [place] *ABN*(11/22/22 UA Color) 3:11 AM) [facility] AZQQL3724-99-10 09:11:00 Test Item Value Reference Range Interpretation Comments UA Turbidity (test code Marked *ABN*(11/22/22 = UA Turbidity) 3:11 AM) [facility] [id number] 09:11:00 Test Item Value Reference Range Interpretation Comments UA Spec Grav (test code = UA Spec 1.013 1 Grav) [facility] ZLHNV6027-24-27 09:11:00 Test Item Value Reference Range Interpretation Comments UA pH (test code = UA pH) 7.0 1 5.0-8.0 [facility] [id number] 09:11:00 Test Item Value Reference Range Interpretation Comments UA Protein (test code = UA Protein) 100 mg/dL [facility] [id number] 09:11:00 Test Item Value Reference Range Interpretation Comments UA Ketones (test code = UA Negative mg/dL Ketones) [facility] [id number] 09:11:00 Test Item Value Reference Range Interpretation Comments UA Bili (test code = Negative *NA*(11/22/22 UA Bili) 3:11 AM) [facility] [id number] 09:11:00 Test Item Value Reference Range Interpretation Comments UA Blood (test code = Moderate *ABN*(11/22/22 UA Blood) 3:11 AM) [facility] HTSOL6902-38-43 09:11:00 Test Item Value Reference Range Interpretation Comments UA Protein (test code = UA Protein) 100 mg/dL [facility] [id number] 09:11:00 Test Item Value Reference Range Interpretation Comments UA Urobilinogen (test code = UA 2.0 0.1-1.0 Urobilinogen) [facility] [id number] 09:11:00 Test Item Value Reference Range Interpretation Comments UA Nitrite (test code Negative (11/22/22 3:11 = UA Nitrite) AM) [facility] [id number] 09:11:00 Test Item Value Reference Range Interpretation Comments UA Leuk Est (test code Large *ABN*(11/22/22 3:11 = UA Leuk Est) AM) [facility] AND [id number] 09:11:00 Test Item Value Reference Range Interpretation Comments UA Sq Epi (test code = UA Sq Occasional /LPF Epi) [facility] [id number] 09:11:00 Test Item Value Reference Range Interpretation Comments UA WBC (test code = 7 See_Comment [Automa tara message] The UA WBC) system which ge nerated this result transmit tara reference range : <=5. The reference range was not used to interpr et this result as rory l/abnormal. [facility] [id number] 09:11:00 Test Item Value Reference Range Interpretation Comments UA RBC (test code = 27 See_Comment [Automa tara message] The UA RBC) system which ge nerated this result transmit tara reference range : <=2. The reference range was not used to interpr et this result as rory l/abnormal. [facility] [id number] 09:11:00 Test Item Value Reference Range Interpretation Comments UA Bacteria (test code = UA Moderate /HPF Bacteria) [facility] [id number] 09:11:00 Test Item Value Reference Range Interpretation Comments UA Mucus (test code = UA Mucus) Few /LPF [facility] [id number] 09:11:00 Test Item Value Reference Range Interpretation Comments UA Amorph Katrin (test code = Occasional /HPF UA Amorph Katrin) [facility] AND [id number] 09:11:00 Test Item Value Reference Range Interpretation Comments UA Glucose (test code = UA Glucose) 50mg/dl [facility] AND [id number] 09:11:00 Test Item Value Reference Range Interpretation Comments UA Ketones (test code = UA Negative mg/dL Ketones) [facility] AND [id number] 09:11:00 Test Item Value Reference Range Interpretation Comments UA Comment 1 (test Suboptimal specimen code = UA Comment 1) received. Results may be inaccurate due to the age of the specimen. Interpret results with caution. [facility] AliceYtpwgprRFXRMTHQS3139-30-30 09:11:00 Test Item Value Reference Range Interpretation Comments Total Protein (test code = Total 6.3 6.4-8.4 Protein) [facility] AliceCbshmyeYEFAKZCXJ7798-10-95 09:11:00 Test Item Value Reference Range Interpretation Comments Albumin Lvl (test code = Albumin Lvl) 2.4 3.5-5.0 [facility] AliceRqxmsodBSDCFUSHG3333-64-29 09:11:00 Test Item Value Reference Range Interpretation Comments ALT (test code = ALT) 55 See_Comment [Auto mated message] The system which ge nerated this result transmit tara reference range : <=65. The reference range was not used to interpr et this result as rory l/abnormal. [facility] AliceHabikysJLEUINDML5126-02-52 09:11:00 Test Item Value Reference Range Interpretation Comments AST (test code = AST) 35 See_Comment [Auto mated message] The system which ge nerated this result transmit tara reference range : <=37. The reference range was not used to interpr et this result as rory l/abnormal. [facility] AliceQndcwtsFVBPPINWZ1610-80-70 09:11:00 Test Item Value Reference Range Interpretation Comments Alk Phos (test code = Alk Phos) 101 39-136 [facility] AliceXfxpjpkIPKJZHLBF8205-67-50 09:11:00 Test Item Value Reference Range Interpretation Comments Bili Total (test code = Bili Total) 0.3 0.2-1.3 [facility]2023-03-04 09:11:00 Test Item Value Reference Range Interpretation Comments UA Bili (test code = Negative *NA*(11/22/22 UA Bili) 3:11 AM) [facility]AezrjfmYILHGBZPI0794-16-44 09:11:00 Test Item Value Reference Range Interpretation Comments B/C Ratio (test code = B/C Ratio) 10 1 6-25 [facility] CenterCmxcfaiGBFIPZPTT9120-90-73 09:11:00 Test Item Value Reference Range Interpretation Comments Globulin (test code = Globulin) 3.9 2.7-4.2 [facility] CenterIwxaennXXALYVOSO5344-30-26 09:11:00 Test Item Value Reference Range Interpretation Comments A/G Ratio (test code = A/G Ratio) 0.6 1 0.7-1.6 [facility] CenterOlqdarcSSBNLUNOV1495-89-31 09:11:00 Test Item Value Reference Range Interpretation Comments Hgb A1C (test code = Hgb A1C) 7.5 [facility] CenterUphqplwYDXFBQYDJ0283-09-57 09:11:00 Test Item Value Reference Range Interpretation Comments Trig (test code = Trig) 151 [facility] KGYSP8641-28-04 09:11:00 Test Item Value Reference Range Interpretation Comments UA Blood (test code = Moderate *ABN*(11/22/22 UA Blood) 3:11 AM) [facility] AND TAYKX0215-09-26 09:11:00 Test Item Value Reference Range Interpretation Comments UA Urobilinogen (test code = UA 2.0 0.1-1.0 Urobilinogen) [facility] AND [id number] 09:11:00 Test Item Value Reference Range Interpretation Comments UA Nitrite (test code Negative (11/22/22 3:11 = UA Nitrite) AM) [facility] AND [id number] 09:11:00 Test Item Value Reference Range Interpretation Comments UA Leuk Est (test code Large *ABN*(11/22/22 3:11 = UA Leuk Est) AM) [facility]VovwwjfBRBURR8837-93-71 05:07:45 Test Item Value Reference Range Interpretation Comments RADRPT (test code = PROCEDURE INFORMATION: RADRPT) Exam: XR Chest Exam date and time: 11/21/2022 9:34 PM Age: 67 years old Clinical indication: /admission TECHNIQUE: Imaging protocol: Radiologic exam of the chest. Views: 1 view. COMPARISON: CHEST 1VIEW DX 11/06/2022 6:06 PM FINDINGS: Tubes, catheters and devices: Right-sided central catheter tip projects over the superior vena cava. Lungs: Mild central pulmonary vascular congestion. Pleural spaces: Unremarkable. No pleural effusion. No pneumothorax. Heart/Mediastinum: The cardiac silhouette is moderately enlarged. Bones/joints: Unremarkable. IMPRESSION: Mild central pulmonary vascular congestion.Michael Mcnulty MD On 11/21/2022 23:07:20; [id number] [facility] HospitalUlekxbbOKDRCO8285-32-94 05:07:45 Test Item Value Reference Range Interpretation Comments RADRPT (test code = PROCEDURE INFORMATION: RADRPT) Exam: XR Chest Exam date and time: 11/21/2022 9:34 PM Age: 67 years old Clinical indication: /admission TECHNIQUE: Imaging protocol: Radiologic exam of the chest. Views: 1 view. COMPARISON: CHEST 1VIEW DX 11/06/2022 6:06 PM FINDINGS: Tubes, catheters and devices: Right-sided central catheter tip projects over the superior vena cava. Lungs: Mild central pulmonary vascular congestion. Pleural spaces: Unremarkable. No pleural effusion. No pneumothorax. Heart/Mediastinum: The cardiac silhouette is moderately enlarged. Bones/joints: Unremarkable. IMPRESSION: Mild central pulmonary vascular congestion.Michael Mcnulty MD On 11/21/2022 23:07:20; [id number] [facility] HospitalSixnbyrVGFNUW4822-95-46 05:07:45 Test Item Value Reference Range Interpretation Comments RADRPT (test code = PROCEDURE INFORMATION: RADRPT) Exam: XR Chest Exam date and time: 11/21/2022 9:34 PM Age: 67 years old Clinical indication: /admission TECHNIQUE: Imaging protocol: Radiologic exam of the chest. Views: 1 view. COMPARISON: CHEST 1VIEW DX 11/06/2022 6:06 PM FINDINGS: Tubes, catheters and devices: Right-sided central catheter tip projects over the superior vena cava. Lungs: Mild central pulmonary vascular congestion. Pleural spaces: Unremarkable. No pleural effusion. No pneumothorax. Heart/Mediastinum: The cardiac silhouette is moderately enlarged. Bones/joints: Unremarkable. IMPRESSION: Mild central pulmonary vascular congestion.Michael Mcnulty MD On 11/21/2022 23:07:20; [id number] [facility] HospitalMmroiibVZRXNT2812-89-95 05:07:45 Test Item Value Reference Range Interpretation Comments RADRPT (test code = PROCEDURE INFORMATION: RADRPT) Exam: XR Chest Exam date and time: 11/21/2022 9:34 PM Age: 67 years old Clinical indication: /admission TECHNIQUE: Imaging protocol: Radiologic exam of the chest. Views: 1 view. COMPARISON: CHEST 1VIEW DX 11/06/2022 6:06 PM FINDINGS: Tubes, catheters and devices: Right-sided central catheter tip projects over the superior vena cava. Lungs: Mild central pulmonary vascular congestion. Pleural spaces: Unremarkable. No pleural effusion. No pneumothorax. Heart/Mediastinum: The cardiac silhouette is moderately enlarged. Bones/joints: Unremarkable. IMPRESSION: Mild central pulmonary vascular congestion.Michael Mcnulty MD On 11/21/2022 23:07:20; [id number] [facility] HospitalJuhpnseAPUJNS4253-80-28 05:07:45 Test Item Value Reference Range Interpretation Comments RADRPT (test code = PROCEDURE INFORMATION: RADRPT) Exam: XR Chest Exam date and time: 11/21/2022 9:34 PM Age: 67 years old Clinical indication: /admission TECHNIQUE: Imaging protocol: Radiologic exam of the chest. Views: 1 view. COMPARISON: CHEST 1VIEW DX 11/06/2022 6:06 PM FINDINGS: Tubes, catheters and devices: Right-sided central catheter tip projects over the superior vena cava. Lungs: Mild central pulmonary vascular congestion. Pleural spaces: Unremarkable. No pleural effusion. No pneumothorax. Heart/Mediastinum: The cardiac silhouette is moderately enlarged. Bones/joints: Unremarkable. IMPRESSION: Mild central pulmonary vascular congestion.Michael Mcnulty MD On 11/21/2022 23:07:20; [id number] [facility]-Glucose wmuhd4061-29-19 12:23:25 Test Item Value Reference Range Interpretation Comments POC-Glucose Meter (test 177 mg/dL 70-110 H : TE STED AT [facility] code = 1538) [address] [facility], 770 30: Silverware Assembler/Techni denzel ID = [id number] for VICENTA KERN Lab Interpretation (test Abnormal code = 41072-0) [facility]-Glucose lgwbq2424-70-89 12:23:25 Test Item Value Reference Range Interpretation Comments POC-Glucose Meter (test 177 mg/dL 70-110 H : TE STED AT [facility] code = 1538) [address] [facility], 770 30: Silverware Assembler/Techni denzel ID = [id number] for VICENTA KERN Lab Interpretation (test Abnormal code = 86248-8) [facility] gxumh5425-64-45 12:23:25 Test Item Value Reference Range Interpretation Comments POC-Glucose Meter (test 177 mg/dL 70-110 H : TE STED AT [facility] code = 1538) [address] [place] [address], 770 30: Silverware Assembler/Techni denzel ID = [id number] for VICENTA KERN Lab Interpretation (test Abnormal code = 68388-2) [facility] uzezr2298-68-25 12:23:25 Test Item Value Reference Range Interpretation Comments POC-Glucose Meter (test 177 mg/dL 70-110 H : TE STED AT [facility] code = 1538) [address] [place] [address], 770 30: Silverware Assembler/Techni denzel ID = [id number] for VICENTA KERN Lab Interpretation (test Abnormal code = 98109-7) [facility] pkxor6948-70-10 12:23:25 Test Item Value Reference Range Interpretation Comments POC-Glucose Meter (test 177 mg/dL 70-110 H : TE STED AT [facility] code = 1538) [address] [place] [address], 770 30: Silverware Assembler/Techni denzel ID = [id number] for VICENTA KERN Lab Interpretation (test Abnormal code = 59817-6) [facility] PGHSQ5399-29-61 12:23:25 Test Item Value Reference Range Interpretation Comments POC-GLUCOSE METER 177 mg/dL 70-110 H : TESTED A T [facility] 6720 (BEAKER) (test code = [facility], 1538) [address]: Silverware Assembler/Techni denzel ID = [id number] for JARON JOELVICENTA LAMA POCT-GLUCOSE NWWQK4281-72-52 08:48:59 Test Item Value Reference Range Interpretation Comments POC-GLUCOSE METER 154 mg/dL 70-110 H : TESTED A T [facility] 6720 (BEAKER) (test code = [facility], 1538) [address]: Silverware Assembler/Techni denzel ID = [id number] for VICENTA BECK BASIC METABOLIC [id number] 06:01:09 Test Item Value Reference Range Interpretation Comments SODIUM (BEAKER) 138 meq/L 136-145 (test code = 381) POTASSIUM 3.7 meq/L 3.5-5.1 (BEAKER) (test code = 379) CHLORIDE (BEAKER) 105 meq/L 98-107 (test code = 382) CO2 (BEAKER) 25 meq/L 22-29 (test code = 355) BLOOD UREA 23 mg/dL 7-21 H NITROGEN (BEAKER) (test code = 354) CREATININE 2.25 mg/dL 0.57-1.25 H (BEAKER) (test code = 358) GLUCOSE RANDOM 192 mg/dL 70-105 H (BEAKER) (test code = 652) CALCIUM (BEAKER) 8.7 mg/dL 8.4-10.2 (test code = 697) EGFR (BEAKER) 24 Interpretatio n of eGFR (test code = mL/min/1.73 values Stage De scription 1092) sq m Result G1 Rory l or high >=90 G2 Mildly decreased [...] not appl icable for dialysis patien ts Silverware Assembler ID - JOVANY LDVPJEAGTN7665-74-29 05:59:51 Test Item Value Reference Range Interpretation Comments MAGNESIUM (BEAKER) (test code = 1.8 mg/dL 1.6-2.6 627) Silverware Assembler ID - JOVANY LAMQOZYCMFHAJD9293-08-31 05:59:51 Test Item Value Reference Range Interpretation Comments PHOSPHORUS (BEAKER) (test code = 4.0 mg/dL 2.3-4.7 604) Silverware Assembler ID - JOVANY LPOCT-GLUCOSE HHGXD3083-97-36 22:02:49 Test Item Value Reference Range Interpretation Comments POC-GLUCOSE METER 211 mg/dL 70-110 H : TESTED A T [facility] 6741 (LU) (test code = [place], 1538) [address]: Silverware Assembler/Techni denzel ID = [id number] for Solange Live SARS-CoV2/RT-PCR ([facility])2022-11-20 18:34:34 Test Item Value Reference Interpretation Comments Range SARS-COV2/RT-PCR Negative Negative The SARS-Co V-2 (test code = target nucleic 48522-0) acids are not detected in thi s specimen. Negat bertin results do not preclude SARS-C oV-2 infection and should not be u sed as the sole bas is for patient management decisions. Nega tive results must be combined with clinical observations, patient history , and epidemiolog ical information. A false negative result may occu r if a specimen is improperly collected, transported or handled. This S ARS CoV-2 test is a rapid, real-neri e RT-PCR test intended for th e qualitative detection of nucleic acid fr om SARS-CoV-2 in a nasopharyngeal swab specimen colle tara from individual s suspected of COVID-19 by the ir healthcare provider. SONIYA (test code = This test has [...] revoked sooner. Fact Sheet for Healthcare Providers: https://www.RetSKU/Documents/Xp ert%20Xpress%20SAR S%20CoV-2/Fact%20S heets/302-9510%20S ARS-COV-2%20HEALTH CARE%20PROVIDERS%2 0FACT%20SHEET.pdf Fact Sheet for Healthcare Patients: https://www.RetSKU/Documents/Xp ert%20Xpress%20SAR S%20CoV-2/Fact%20S heets/3023801%20S ARS-COV-2%20PATIEN T%20FACT%20SHEET.p df Lab Interpretation Normal (test code = 01676-2) [facility])2022-11-20 18:34:34 Test Item Value Reference Interpretation Comments Range SARS-COV2/RT-PCR Negative Negative The SARS-Co V-2 (test code = target nucleic 67889-9) acids are not detected in thi s specimen. Negat bertin results do not preclude SARS-C oV-2 infection and should not be u sed as the sole bas is for patient management decisions. Nega tive results must be combined with clinical observations, patient history , and epidemiolog ical information. A false negative result may occu r if a specimen is improperly collected, transported or handled. This S ARS CoV-2 test is a rapid, real-neri e RT-PCR test intended for th e qualitative detection of nucleic acid fr om SARS-CoV-2 in a nasopharyngeal swab specimen collec tara from individual s suspected of COVID-19 by the ir healthcare provider. SONIYA (test code = This test has [...] revoked sooner. Fact Sheet for Healthcare Providers: https://www.RetSKU/Documents/Xp ert%20Xpress%20SAR S%20CoV-2/Fact%20S heets/302-4595%20S ARS-COV-2%20HEALTH CARE%20PROVIDERS%2 0FACT%20SHEET.pdf Fact Sheet for Healthcare Patients: https://www.RetSKU/Documents/Xp ert%20Xpress%20SAR S%20CoV-2/Fact%20S heets/302-4841%20S ARS-COV-2%20PATIEN T%20FACT%20SHEET.p df Lab Interpretation Normal (test code = 05186-0) [facility])2022-11-20 18:34:34 Test Item Value Reference Interpretation Comments Range SARS-COV2/RT-PCR Negative Negative The SARS-Co V-2 (test code = target nucleic 17965-7) acids are not detected in thi s specimen. Negat bertin results do not preclude SARS-C oV-2 infection and should not be u sed as the sole bas is for patient management decisions. Nega tive results must be combined with clinical observations, patient history , and epidemiolog ical information. A false negative result may occu r if a specimen is improperly collected, transported or handled. This S ARS CoV-2 test is a rapid, real-neri e RT-PCR test intended for th e qualitative detection of nucleic acid fr om SARS-CoV-2 in a nasopharyngeal swab specimen collec tara from individual s suspected of COVID-19 by the ir healthcare provider. SONIYA (test code = This test has [...] revoked sooner. Fact Sheet for Healthcare Providers: https://www.RetSKU/Documents/Xp ert%20Xpress%20SAR S%20CoV-2/Fact%20S heets/302-3802%20S ARS-COV-2%20HEALTH CARE%20PROVIDERS%2 0FACT%20SHEET.pdf Fact Sheet for Healthcare Patients: https://www.RetSKU/Documents/Xp ert%20Xpress%20SAR S%20CoV-2/Fact%20S heets/302-3801%20S ARS-COV-2%20PATIEN T%20FACT%20SHEET.p df Lab Interpretation Normal (test code = 31429-0) [facility])2022-11-20 18:34:34 Test Item Value Reference Interpretation Comments Range SARS-COV2/RT-PCR Negative Negative The SARS-Co V-2 (test code = target nucleic 33099-1) acids are not detected in thi s specimen. Negat bertin results do not preclude SARS-C oV-2 infection and should not be u sed as the sole bas is for patient management decisions. Nega tive results must be combined with clinical observations, patient history , and epidemiolog ical information. A false negative result may occu r if a specimen is improperly collected, transported or handled. This S ARS CoV-2 test is a rapid, real-neri e RT-PCR test intended for th e qualitative detection of nucleic acid fr om SARS-CoV-2 in a nasopharyngeal swab specimen collec tara from individual s suspected of COVID-19 by the ir healthcare provider. SONIYA (test code = This test has [...] revoked sooner. Fact Sheet for Healthcare Providers: https://www.[employer]SKU/Documents/Xp ert%20Xpress%20SAR S%20CoV-2/Fact%20S heets/302-3802%20S ARS-COV-2%20HEALTH CARE%20PROVIDERS%2 0FACT%20SHEET.pdf Fact Sheet for Healthcare Patients: https://www.[employer]/Documents/Xp ert%20Xpress%20SAR S%20CoV-2/Fact%20S heets/302-3801%20S ARS-COV-2%20PATIEN T%20FACT%20SHEET.p df Lab Interpretation Normal (test code = 45893-7) [facility])2022-11-20 18:34:34 Test Item Value Reference Interpretation Comments Range SARS-COV2/RT-PCR Negative Negative The SARS-Co V-2 (test code = target nucleic 85689-7) acids are not detected in thi s specimen. Negat bertin results do not preclude SARS-C oV-2 infection and should not be u sed as the sole bas is for patient management decisions. Nega tive results must be combined with clinical observations, patient history , and epidemiolog ical information. A false negative result may occu r if a specimen is improperly collected, transported or handled. This S ARS CoV-2 test is a rapid, real-neri e RT-PCR test intended for e qualitative detection of nucleic acid fr om SARS-CoV-2 in a nasopharyngeal swab specimen collec tara from individual s suspected of COVID-19 by the ir healthcare provider. SONIYA (test code = This test has [...] revoked sooner. Fact Sheet for Healthcare Providers: https://www.[employer]/Documents/Xp ert%20Xpress%20SAR S%20CoV-2/Fact%20S heets/302-3802%20S ARS-COV-2%20HEALTH CARE%20PROVIDERS%2 0FACT%20SHEET.pdf Fact Sheet for Healthcare Patients: https://www.[employer]/Documents/Xp ert%20Xpress%20SAR S%20CoV-2/Fact%20S heets/302-3801%20S ARS-COV-2%20PATIEN T%20FACT%20SHEET.p df Lab Interpretation Normal (test code = 84462-7) [facility])2022-11-20 18:34:34 Test Item Value Reference Range Interpretation Comments SARS-COV2/RT-PCR Negative Negative The SARS-Co V-2 target (test code = nucleic acids a re not 2616050) detected in thi s specimen. Negative result [...] revoked sooner. Fact Sheet for Healthcare Providers: https://www.[employer] m/Documents/Xpert%20Xpress%20SARS%20CoV-2/Fact%20Sheets/302-3802%85NHQA-FKK-2%20 HEALTHCARE%20PROVIDERS%20FACT%20SHEET.pdf Fact Sheet for Healthcare Patients: https://www.[employer].cn/Documents/Xpert%20Xp ress%20SARS%20CoV-2/Fact%20Sheets/302-3801%45NJQV-OYZ-8%20PATIENT%20FACT%20SHEET .pdfPOCT-GLUCOSE [id number] 18:02:03 Test Item Value Reference Range Interpretation Comments POC-GLUCOSE METER 228 mg/dL 70-110 H : TESTED A T [facility] 6720 (LU) (test code = [place], 1538) [address]: Silverware Assembler/Techni denzel ID = [id number] for VICENTA BECK Creatinine, random [id number] 14:14:07 Test Item Value Reference Range Interpretation Comments Creatinine, Ur 87.8 mg/dL (test code = 2161-8) SONIYA (test code = Reference Range: No SONIYA) NormalsOperator ID - ADMIN [facility] [id number] 14:14:07 Test Item Value Reference Range Interpretation Comments Sodium Urine (test 88 meq/L code = 2955-3) SONIYA (test code = Reference Range: No SONIYA) NormalsOperator [facility] - [facility] [id number] 14:14:07 Test Item Value Reference Range Interpretation Comments Urea Nitrogen, Ur 371 mg/dL (test code = 3095-7) SONIYA (test code = Reference Range: No SONIYA) NormalsOperator ID - [facility] [place] [place] [id number] 14:14:07 Test Item Value Reference Range Interpretation Comments Creatinine, Ur 87.8 mg/dL (test code = 2161-8) SONIYA (test code = Reference Range: No SONIYA) NormalsOperator [place] [facility] [id number] 14:14:07 Test Item Value Reference Range Interpretation Comments Sodium Urine (test 88 meq/L code = 2955-3) SONIYA (test code = Reference Range: No SONIYA) NormalsOperator ID - [facility] [place] N[facility], random [id number] 14:14:07 Test Item Value Reference Range Interpretation Comments Urea Nitrogen, Ur 371 mg/dL (test code = 3095-7) SONIYA (test code = Reference Range: No SONIYA) NormalsOperator ID - [facility], random [id number] 14:14:07 Test Item Value Reference Range Interpretation Comments Creatinine, Ur 87.8 mg/dL (test code = 2161-8) SONIYA (test code = Reference Range: No SONIYA) NormalsOperator ID - [facility] [id number] 14:14:07 Test Item Value Reference Range Interpretation Comments Sodium Urine (test 88 meq/L code = 2955-3) SONIYA (test code = Reference Range: No SONIYA) NormalsOperator [place] - [facility] [place] Nitrogen, random [id number] 14:14:07 Test Item Value Reference Range Interpretation Comments Urea Nitrogen, Ur 371 mg/dL (test code = 3095-7) SONIYA (test code = Reference Range: No SONIYA) NormalsOperator ID [facility] [id number] 14:14:07 Test Item Value Reference Range Interpretation Comments Creatinine, Ur 87.8 mg/dL (test code = 2161-8) SONIYA (test code = Reference Range: No SONIYA) NormalsOperator ID - ADMIN [facility] [id number] 14:14:07 Test Item Value Reference Range Interpretation Comments Sodium Urine (test 88 meq/L code = 2955-3) SONIYA (test code = Reference Range: No SONIYA) NormalsOperator ID - [facility] N[facility], random [id number] 14:14:07 Test Item Value Reference Range Interpretation Comments Urea Nitrogen, Ur 371 mg/dL (test code = 3095-7) SONIYA (test code = Reference Range: No SONIYA) NormalsOperator ID - [facility]MIN [facility] [id number] 14:14:07 Test Item Value Reference Range Interpretation Comments Creatinine, Ur 87.8 mg/dL (test code = 2161-8) SONIYA (test code = Reference Range: No SONIYA) NormalsOperator ID - [facility] [id number] 14:14:07 Test Item Value Reference Range Interpretation Comments Sodium Urine (test 88 meq/L code = 2955-3) SONIYA (test code = Reference Range: No SONIYA) NormalsOperator ID - [facility] Nitrogen, random [id number] 14:14:07 Test Item Value Reference Range Interpretation Comments Urea Nitrogen, Ur 371 mg/dL (test code = 3095-7) SONIYA (test code = Reference Range: No SONIYA) NormalsOperator ID - [facility] FranciscoCREATININE, RANDOM [id number] 14:14:07 Test Item Value Reference Range Interpretation Comments CREATININE URINE (BEAKER) (test 87.8 mg/dL code = 375) Reference Range: No NormalsOperator ID - ADMINSODIUM, RANDOM [id number] 14:14:07 Test Item Value Reference Range Interpretation Comments SODIUM URINE (BEAKER) (test code = 88 meq/L 243) Reference Range: No NormalsOperator ID - ADMINUREA NITROGEN, RANDOM URINE 2022-11-20 14:14:07 Test Item Value Reference Range Interpretation Comments UREA NITROGEN URINE (BEAKER) (test 371 mg/dL code = 538) Reference Range: No NormalsOperator ID - ADMINPOCT-GLUCOSE [id number] 12:58:42 Test Item Value Reference Range Interpretation Comments POC-GLUCOSE METER 193 mg/dL 70-110 H : TESTED A T [facility] 6720 (BEAKER) (test code = [facility], 1538) [address]: Silverware Assembler/Techni denzel ID = [id number] for Ke lly, Afshan POCT-GLUCOSE [id number] 08:39:20 Test Item Value Reference Range Interpretation Comments POC-GLUCOSE METER 163 mg/dL 70-110 H : TESTED A T [facility] 6720 (BEAKER) (test code = [facility], 1538) [address]: Silverware Assembler/Techni denzel ID = [id number] for Ke lly, Afshan IRON, TIBC, % SAT. (WITHOUT FERRITIN)2022-11-20 08:18:11 Test Item Value Reference Range Interpretation Comments IRON (BEAKER) (test code = 547) 54.0 ug/dL 40.0-160.0 TOTAL IRON BINDING CAPACITY 236 ug/dL 250-450 L (BEAKER) (test code = 769) IRON % SATURATION (2) (BEAKER) 23 % 20-55 (test code = 2590) Silverware Assembler ID - ADMINBASIC METABOLIC [id number] 08:02:46 Test Item Value Reference Range Interpretation Comments SODIUM (BEAKER) 139 meq/L 136-145 (test code = 381) POTASSIUM 3.7 meq/L 3.5-5.1 (BEAKER) (test code = 379) CHLORIDE (BEAKER) 105 meq/L 98-107 (test code = 382) CO2 (BEAKER) 24 meq/L 22-29 (test code = 355) BLOOD UREA 20 mg/dL 7-21 NITROGEN (BEAKER) (test code = 354) CREATININE 2.39 mg/dL 0.57-1.25 H (BEAKER) (test code = 358) GLUCOSE RANDOM 178 mg/dL 70-105 H (BEAKER) (test code = 652) CALCIUM (BEAKER) 9.0 mg/dL 8.4-10.2 (test code = 697) EGFR (BEAKER) 22 Interpretatio n of eGFR (test code = mL/min/1.73 values Stage De scription 1092) sq m Result G1 Rory l or high >=90 G2 Mildly decreased [...] not appl icable for dialysis patien ts Silverware Assembler ID - [id number] 07:58:29 Test Item Value Reference Range Interpretation Comments MAGNESIUM (BEAKER) (test code = 1.8 mg/dL 1.6-2.6 627) Silverware Assembler ID - [id number] 07:58:29 Test Item Value Reference Range Interpretation Comments PHOSPHORUS (BEAKER) (test code = 4.5 mg/dL 2.3-4.7 604) Silverware Assembler ID - ADMINPOCT-GLUCOSE [id number] 21:18:37 Test Item Value Reference Range Interpretation Comments POC-GLUCOSE METER 150 mg/dL 70-110 H : TESTED A T [facility] 6720 (BEAKER) (test code = [facility], 1538) [address]: Silverware Assembler/Techni denzel ID = [id number] for Solange Live POCT-GLUCOSE [id number] 17:26:58 Test Item Value Reference Range Interpretation Comments POC-GLUCOSE METER 203 mg/dL 70-110 H : TESTED A T [facility] 6720 (BEAKER) (test code = [facility] [employer] [facility], 1538) [address]: Silverware Assembler/Techni denzel ID = [id number] for VICENTA BECK POCT-GLUCOSE [id number] 12:00:22 Test Item Value Reference Range Interpretation Comments POC-GLUCOSE METER 135 mg/dL 70-110 H : TESTED A T [facility] 6720 (BEAKER) (test code = [facility] [employer] [facility], 1538) [address]: Silverware Assembler/Techni denzel ID = [id number] for VICENTA BECK POCT-GLUCOSE [id number] 09:26:32 Test Item Value Reference Range Interpretation Comments POC-GLUCOSE METER 99 mg/dL 70-110 : TESTED A T [facility] 6720 (LU) (test code = [facility], 1538) [address]: Silverware Assembler/Techni denzel ID = [id number] for VICENTA TITUS POCT-GLUCOSE [id number] 21:40:08 Test Item Value Reference Range Interpretation Comments POC-GLUCOSE METER 208 mg/dL 70-110 H : Notified RN/MD: (LU) (test code = TESTED AT [facility] 6720 1538) [facility], [address]: Silverware Assembler/Techni denzel ID = [id number] for LESTER BONILLA, TUNNELED CATHETER [id number] 18:34:00Reason for Central Line/PICC?->PICC Home infusion duration of therapy > 21 daysReason for exam:->bacteremiaAnesthesia:->None [facility] 1955 Sex: FFINAL REPORT Tunneled central venous catheter insertion, under ultrasound and fluoroscopic guidance. History: Bacteremia Modality: Sonography and fluoroscopy. Sedation: None. The patient's vital signs were monitored throughout the procedure and recorded in the patient's medical record by the nurse. Plating Tank Operator: Geraldine Jay MD. Professor Of Biblical Studies: Alex Smith M.D. Approach: Right internal jugular vein Estimated blood loss: < 5 cc. Specimen: None. Fluoroscopy Time: 3.0 min.Reference Air Kerma (Ka, r): 63.7 mGy. Technique: Informed written consent was obtained. Discussion of risks, benefits, and alternatives were made with the patient. The patient expressed understanding and agreed to proceed. A universal timeout was performed prior to starting the procedure. All elements maximal sterile barrier technique was utilized for this procedure, including utilization of sterilescrub solution for skin prep, a large sterile sheet to cover the areas of the patient that were not prepped, and hand hygiene, mask, head covering, and sterile gown for performing radiologist and scrubtechnologist. The skin was anesthetized with 2% lidocaine.Ultrasound evaluation showed a patent and compressible right vein, which was punctured under direct real-time ultrasound guidance with a micropuncture needle. An ultrasound image was saved to PACS. A 0.018 inch wire was placed through the needle into the IVC. A 6 [place] peel away sheath was was placed. A subcutaneous tunnel was created in the right anterior chest wall by blunt dissection. A 6 [place] Bard Dual Lumen Power Line was brought through the tunnel and advanced through the sheath, with its distal tip terminating in the right atrium. The peel-away sheath was removed. The ports were flushed and aspirated easily following placement. The catheter was sutured to the skin to secure its placement. The small jugular incision site was closed using Dermabond. Vital signs were monitored throughout the procedure by a nurse, and remained stable. The patient tolerated the procedure well and left the department in the same condition. Results: Spot radiograph of the chest demonstrates the new tunneled central venous catheter to lie in the expected position with its tip overlying the superior right atrium. Impression: Successful, uncomplicatedplacement of a right internal jugular tunneled central venous catheter using sonographic and fluoroscopic guidance and conscious sedation. The catheter is ready for immediate use. Signed: Devyn Jay Verified Date/Time: 11/18/2022 18:34:35 Reading Location: [place] [address] Angio Body Reading Room POCT-GLUCOSE [id number] 12:09:08 Test Item Value Reference Range Interpretation Comments POC-GLUCOSE METER 203 mg/dL 70-110 H : TESTED A T [facility] 6720 (BEAKER) (test code = [facility], 1538) [address]: Silverware Assembler/Techni denzel ID = [id number] for An Hank ko BASIC METABOLIC [id number] 09:17:53 Test Item Value Reference Range Interpretation Comments SODIUM (BEAKER) 138 meq/L 136-145 (test code = 381) POTASSIUM 3.6 meq/L 3.5-5.1 (BEAKER) (test code = 379) CHLORIDE (BEAKER) 104 meq/L 98-107 (test code = 382) CO2 (BEAKER) 25 meq/L 22-29 (test code = 355) BLOOD UREA 17 mg/dL 7-21 NITROGEN (BEAKER) (test code = 354) CREATININE 1.96 mg/dL 0.57-1.25 H (BEAKER) (test code = 358) GLUCOSE RANDOM 200 mg/dL 70-105 H (BEAKER) (test code = 652) CALCIUM (BEAKER) 9.2 mg/dL 8.4-10.2 (test code = 697) EGFR (BEAKER) 28 Interpretatio n of eGFR (test code = mL/min/1.73 values Stage De scription 1092) sq m Result G1 Rory l or high >=90 G2 Mildly decreased [...] not appl icable for dialysis patien ts Silverware Assembler ID - MARCOPOCT-GLUCOSE [id number] 07:36:04 Test Item Value Reference Range Interpretation Comments POC-GLUCOSE METER 199 mg/dL 70-110 H : TESTED A T [facility] 6720 (BEAKER) (test code = [facility], 153) [address]: Silverware Assembler/Techni denzel ID = [id number] for An Hank ko CBC W/PLT COUNT & AUTO [id number] 05:26:43 Test Item Value Reference Range Interpretation Comments WHITE BLOOD CELL COUNT (BEAKER) 6.5 K/ L 3.5-10.5 (test code = 775) RED BLOOD CELL COUNT (BEAKER) 4.06 M/ L 3.93-5.22 (test code = 761) HEMOGLOBIN (BEAKER) (test code = 10.6 GM/DL 11.2-15.7 L 410) HEMATOCRIT (BEAKER) (test code = 32.4 % 34.1-44.9 L 411) MEAN CORPUSCULAR VOLUME (BEAKER) 80 fL 79-95 (test code = 753) MEAN CORPUSCULAR HEMOGLOBIN 26.1 pg 25.6-32.2 (BEAKER) (test code = 751) MEAN CORPUSCULAR HEMOGLOBIN CONC 32.7 GM/DL 32.2-35.5 (BEAKER) (test code = 752) RED CELL DISTRIBUTION WIDTH 15.6 % 11.7-14.4 H (BEAKER) (test code = 412) PLATELET COUNT (BEAKER) (test 263 K/CU MM 150-450 code = 756) MEAN PLATELET VOLUME (BEAKER) 8.7 fL 9.4-12.3 L (test code = 754) NUCLEATED RED BLOOD CELLS 0 /100 WBC 0-0 (BEAKER) (test code = 413) NEUTROPHILS RELATIVE PERCENT 64 % (BEAKER) (test code = 429) LYMPHOCYTES RELATIVE PERCENT 22 % (BEAKER) (test code = 430) MONOCYTES RELATIVE PERCENT 7 % (BEAKER) (test code = 431) EOSINOPHILS RELATIVE PERCENT 6 % (BEAKER) (test code = 432) BASOPHILS RELATIVE PERCENT 1 % (BEAKER) (test code = 437) NEUTROPHILS ABSOLUTE COUNT 4.16 K/ L 1.56-6.13 (BEAKER) (test code = 670) LYMPHOCYTES ABSOLUTE COUNT 1.46 K/ L 1.18-3.74 (BEAKER) (test code = 414) MONOCYTES ABSOLUTE COUNT (BEAKER) 0.46 K/ L 0.24-0.36 H (test code = 415) EOSINOPHILS ABSOLUTE COUNT 0.38 K/ L 0.04-0.36 H (BEAKER) (test code = 416) BASOPHILS ABSOLUTE COUNT (BEAKER) 0.04 K/ L 0.01-0.08 (test code = 417) IMMATURE GRANULOCYTES-RELATIVE 0.30 % 0.00-1.00 PERCENT (BEAKER) (test code = 2801) POCT-GLUCOSE [id number] 21:55:10 Test Item Value Reference Range Interpretation Comments POC-GLUCOSE METER 198 mg/dL 70-110 H : TESTED A T [facility] 6720 (BEAKER) (test code = [facility], 1538) [address]: Silverware Assembler/Techni denzel ID = [id number] for Edda Villagomez POCT-GLUCOSE [id number] 17:33:21 Test Item Value Reference Range Interpretation Comments POC-GLUCOSE METER 182 mg/dL 70-110 H : TESTED A T [facility] 6720 (BEAKER) (test code = [facility], [facility]8) [address]: Silverware Assembler/Techni denzel ID = [id number] for An derson, Hank POCT-GLUCOSE [id number] 14:31:57 Test Item Value Reference Range Interpretation Comments POC-GLUCOSE METER 164 mg/dL 70-110 H : TESTED A T [facility] 6720 (BEAKER) (test code = [facility], [facility]) [address]: Silverware Assembler/Techni denzel ID = [id number] for An derson, Hank POCT-GLUCOSE [id number] 09:10:05 Test Item Value Reference Range Interpretation Comments POC-GLUCOSE METER 143 mg/dL 70-110 H : TESTED A T [facility] 6720 (BEAKER) (test code = [facility], 1538) [address]: Silverware Assembler/Techni denzel ID = [id number] for An derson, Hank POCT-GLUCOSE [id number] 08:11:14 Test Item Value Reference Range Interpretation Comments POC-GLUCOSE METER 160 mg/dL 70-110 H : TESTED A T [facility] 6720 (BEAKER) (test code = [facility], [facility]) [address]: Silverware Assembler/Techni denzel ID = [id number] for Um eh, Akumbu BASIC METABOLIC [id number] 08:04:43 Test Item Value Reference Range Interpretation Comments SODIUM (BEAKER) 140 meq/L 136-145 (test code = 381) POTASSIUM 3.5 meq/L 3.5-5.1 (BEAKER) (test code = 379) CHLORIDE (BEAKER) 105 meq/L 98-107 (test code = 382) CO2 (BEAKER) 29 meq/L 22-29 (test code = 355) BLOOD UREA 18 mg/dL 7-21 NITROGEN (BEAKER) (test code = 354) CREATININE 2.07 mg/dL 0.57-1.25 H (BEAKER) (test code = 358) GLUCOSE RANDOM 177 mg/dL 70-105 H (BEAKER) (test code = 652) CALCIUM (BEAKER) 8.7 mg/dL 8.4-10.2 (test code = 697) EGFR (BEAKER) 26 Interpretatio n of eGFR (test code = mL/min/1.73 values Stage De scription 1092) sq m Result G1 Rory l or high >=90 G2 Mildly decreased [...] not appl icable for dialysis patien ts Silverware Assembler ID - PIAYA LCBC W/PLT COUNT & AUTO [id number] 06:20:38 Test Item Value Reference Range Interpretation Comments WHITE BLOOD CELL COUNT (BEAKER) 5.8 K/ L 3.5-10.5 (test code = 775) RED BLOOD CELL COUNT (BEAKER) 3.23 M/ L 3.93-5.22 L (test code = 761) HEMOGLOBIN (BEAKER) (test code = 8.5 GM/DL 11.2-15.7 L 410) HEMATOCRIT (BEAKER) (test code = 25.9 % 34.1-44.9 L 411) MEAN CORPUSCULAR VOLUME (BEAKER) 80 fL 79-95 (test code = 753) MEAN CORPUSCULAR HEMOGLOBIN 26.3 pg 25.6-32.2 (BEAKER) (test code = 751) MEAN CORPUSCULAR HEMOGLOBIN CONC 32.8 GM/DL 32.2-35.5 (BEAKER) (test code = 752) RED CELL DISTRIBUTION WIDTH 15.6 % 11.7-14.4 H (BEAKER) (test code = 412) PLATELET COUNT (BEAKER) (test 258 K/CU MM 150-450 code = 756) MEAN PLATELET VOLUME (BEAKER) 8.5 fL 9.4-12.3 L (test code = 754) NUCLEATED RED BLOOD CELLS 0 /100 WBC 0-0 (BEAKER) (test code = 413) NEUTROPHILS RELATIVE PERCENT 59 % (BEAKER) (test code = 429) LYMPHOCYTES RELATIVE PERCENT 26 % (BEAKER) (test code = 430) MONOCYTES RELATIVE PERCENT 8 % (BEAKER) (test code = 431) EOSINOPHILS RELATIVE PERCENT 7 % (BEAKER) (test code = 432) BASOPHILS RELATIVE PERCENT 1 % (BEAKER) (test code = 437) NEUTROPHILS ABSOLUTE COUNT 3.42 K/ L 1.56-6.13 (BEAKER) (test code = 670) LYMPHOCYTES ABSOLUTE COUNT 1.49 K/ L 1.18-3.74 (BEAKER) (test code = 414) MONOCYTES ABSOLUTE COUNT (BEAKER) 0.48 K/ L 0.24-0.36 H (test code = 415) EOSINOPHILS ABSOLUTE COUNT 0.40 K/ L 0.04-0.36 H (BEAKER) (test code = 416) BASOPHILS ABSOLUTE COUNT (BEAKER) 0.03 K/ L 0.01-0.08 (test code = 417) IMMATURE GRANULOCYTES-RELATIVE 0.30 % 0.00-1.00 PERCENT (BEAKER) (test code = 2801) POCT-GLUCOSE [id number] 20:42:09 Test Item Value Reference Range Interpretation Comments POC-GLUCOSE METER 189 mg/dL 70-110 H : Notified RN/MD: ([facility]) (test code = TESTED AT [place] [address] 1537) [facility], [address]: Silverware Assembler/Techni denzel ID = [id number] for LATHBRIDGE, LESTER ICE POCT-GLUCOSE [id number] 17:35:37 Test Item Value Reference Range Interpretation Comments POC-GLUCOSE METER 150 mg/dL 70-110 H : TESTED A T [facility] 6720 ([facility]) (test code = [facility], 153) [address]: Silverware Assembler/Techni denzel ID = [id number] for Um eh, Akumbu POCT-GLUCOSE [id number] 12:29:42 Test Item Value Reference Range Interpretation Comments POC-GLUCOSE METER 226 mg/dL 70-110 H : TESTED A T [facility] 6720 (BEAKER) (test code = [facility], 1538) [address]: Silverware Assembler/Techni denzel ID = [id number] for Dennis Liao BASIC METABOLIC [id number] 08:56:28 Test Item Value Reference Range Interpretation Comments SODIUM (BEAKER) 141 meq/L 136-145 (test code = 381) POTASSIUM 3.7 meq/L 3.5-5.1 Specimen slight ly (BEAKER) (test hemolyzed code = 379) CHLORIDE (BEAKER) 107 meq/L 98-107 (test code = 382) CO2 (BEAKER) 21 meq/L 22-29 L (test code = 355) BLOOD UREA 19 mg/dL 7-21 NITROGEN (BEAKER) (test code = 354) CREATININE 2.07 mg/dL 0.57-1.25 H Specimen slight ly (BEAKER) (test hemolyzed code = 358) GLUCOSE RANDOM 146 mg/dL 70-105 H (BEAKER) (test code = 652) CALCIUM (BEAKER) 8.8 mg/dL 8.4-10.2 (test code = 697) EGFR (BEAKER) 26 Interpretatio n of eGFR (test code = mL/min/1.73 values Stage De scription 1092) sq m Result G1 Rory l or high >=90 G2 Mildly decreased [...] not appl icable for dialysis patien ts Silverware Assembler ID - MARCOPOCT-GLUCOSE [id number] 08:20:06 Test Item Value Reference Range Interpretation Comments POC-GLUCOSE METER 141 mg/dL 70-110 H : TESTED A T [facility] 6720 (BEAKER) (test code = [facility], 1538) [address]: Silverware Assembler/Techni denzel ID = [id number] for En spence, Dennis CBC W/PLT COUNT & AUTO [id number] 07:25:34 Test Item Value Reference Range Interpretation Comments WHITE BLOOD CELL COUNT (BEAKER) 6.4 K/ L 3.5-10.5 (test code = 775) RED BLOOD CELL COUNT (BEAKER) 3.28 M/ L 3.93-5.22 L (test code = 761) HEMOGLOBIN (BEAKER) (test code = 8.7 GM/DL 11.2-15.7 L 410) HEMATOCRIT (BEAKER) (test code = 26.7 % 34.1-44.9 L 411) MEAN CORPUSCULAR VOLUME (BEAKER) 81 fL 79-95 (test code = 753) MEAN CORPUSCULAR HEMOGLOBIN 26.5 pg 25.6-32.2 (BEAKER) (test code = 751) MEAN CORPUSCULAR HEMOGLOBIN CONC 32.6 GM/DL 32.2-35.5 (BEAKER) (test code = 752) RED CELL DISTRIBUTION WIDTH 15.8 % 11.7-14.4 H (BEAKER) (test code = 412) PLATELET COUNT (BEAKER) (test 294 K/CU MM 150-450 code = 756) MEAN PLATELET VOLUME (BEAKER) 8.7 fL 9.4-12.3 L (test code = 754) NUCLEATED RED BLOOD CELLS 0 /100 WBC 0-0 (BEAKER) (test code = 413) NEUTROPHILS RELATIVE PERCENT 62 % (BEAKER) (test code = 429) LYMPHOCYTES RELATIVE PERCENT 24 % (BEAKER) (test code = 430) MONOCYTES RELATIVE PERCENT 7 % (BEAKER) (test code = 431) EOSINOPHILS RELATIVE PERCENT 6 % (BEAKER) (test code = 432) BASOPHILS RELATIVE PERCENT 1 % (BEAKER) (test code = 437) NEUTROPHILS ABSOLUTE COUNT 3.96 K/ L 1.56-6.13 (BEAKER) (test code = 670) LYMPHOCYTES ABSOLUTE COUNT 1.57 K/ L 1.18-3.74 (BEAKER) (test code = 414) MONOCYTES ABSOLUTE COUNT (BEAKER) 0.43 K/ L 0.24-0.36 H (test code = 415) EOSINOPHILS ABSOLUTE COUNT 0.40 K/ L 0.04-0.36 H (BEAKER) (test code = 416) BASOPHILS ABSOLUTE COUNT (BEAKER) 0.03 K/ L 0.01-0.08 (test code = 417) IMMATURE GRANULOCYTES-RELATIVE 0.60 % 0.00-1.00 PERCENT (BEAKER) (test code = 2801) POCT-GLUCOSE [id number] 21:33:51 Test Item Value Reference Range Interpretation Comments POC-GLUCOSE METER 206 mg/dL 70-110 H : TESTED A T [facility] 6720 (BEAKER) (test code = [facility], [facility]) [id number]: Silverware Assembler/Techni denzel ID = [id number] for Solange Live POCT-GLUCOSE [id number] 17:53:02 Test Item Value Reference Range Interpretation Comments POC-GLUCOSE METER 142 mg/dL 70-110 H : TESTED A T [facility] 6720 (BEAKER) (test code = [facility], [facility]8) 14[address]: Silverware Assembler/Techni denzel ID = [id number] for RO DGERS, ANAMARIAECA POCT-GLUCOSE [id number] 12:42:41 Test Item Value Reference Range Interpretation Comments POC-GLUCOSE METER 209 mg/dL 70-110 H : TESTED A T [facility] 6720 (BEAKER) (test code = [facility], [facility]8) [address]: Silverware Assembler/Techni denzel ID = [id number] for RO DGERS, JAMECA POCT-GLUCOSE [id number] 08:23:46 Test Item Value Reference Range Interpretation Comments POC-GLUCOSE METER 129 mg/dL 70-110 H : TESTED A T [facility] 6720 (BEAKER) (test code = [facility], [facility]) [address]: Silverware Assembler/Techni denzel ID = [id number] for Ruba tuttle Sabino COMPREHENSIVE METABOLIC [id number] 05:59:18 Test Item Value Reference Range Interpretation Comments TOTAL PROTEIN 5.8 gm/dL 6.0-8.3 L (BEAKER) (test code = 770) ALBUMIN (BEAKER) 3.1 g/dL 3.5-5.0 L (test code = 1145) ALKALINE 111 U/L 40-150 PHOSPHATASE (BEAKER) (test code = 346) BILIRUBIN TOTAL 0.4 mg/dL 0.2-1.2 (BEAKER) (test code = 377) SODIUM (BEAKER) 142 meq/L 136-145 (test code = 381) POTASSIUM (BEAKER) 3.4 meq/L 3.5-5.1 L (test code = 379) CHLORIDE (BEAKER) 103 meq/L 98-107 (test code = 382) CO2 (BEAKER) (test 30 meq/L 22-29 H code = 355) BLOOD UREA 20 mg/dL 7-21 NITROGEN (BEAKER) (test code = 354) CREATININE 1.97 mg/dL 0.57-1.25 H (BEAKER) (test code = 358) GLUCOSE RANDOM 138 mg/dL 70-105 H (BEAKER) (test code = 652) CALCIUM (BEAKER) 9.1 mg/dL 8.4-10.2 (test code = 697) AST (SGOT) 58 U/L 5-34 H (BEAKER) (test code = 353) ALT (SGPT) 77 U/L 6-55 H (BEAKER) (test code = 347) EGFR (BEAKER) 28 Interpretatio n of eGFR (test code = 1092) mL/min/1.[address] age Description sq m Result G1 Rory l or high >=90 G2 Mildly decreased [...] not appl icable for dialysis patien ts Silverware Assembler ID - MARCOCBC W/PLT COUNT & AUTO [id number] 05:33:40 Test Item Value Reference Range Interpretation Comments WHITE BLOOD CELL COUNT (BEAKER) 6.9 K/ L 3.5-10.5 (test code = 775) RED BLOOD CELL COUNT (BEAKER) 3.32 M/ L 3.93-5.22 L (test code = 761) HEMOGLOBIN (BEAKER) (test code = 8.8 GM/DL 11.2-15.7 L 410) HEMATOCRIT (BEAKER) (test code = 26.7 % 34.1-44.9 L 411) MEAN CORPUSCULAR VOLUME (BEAKER) 80 fL 79-95 (test code = 753) MEAN CORPUSCULAR HEMOGLOBIN 26.5 pg 25.6-32.2 (BEAKER) (test code = 751) MEAN CORPUSCULAR HEMOGLOBIN CONC 33.0 GM/DL 32.2-35.5 (BEAKER) (test code = 752) RED CELL DISTRIBUTION WIDTH 15.9 % 11.7-14.4 H (BEAKER) (test code = 412) PLATELET COUNT (BEAKER) (test 315 K/CU MM 150-450 code = 756) MEAN PLATELET VOLUME (BEAKER) 8.6 fL 9.4-12.3 L (test code = 754) NUCLEATED RED BLOOD CELLS 0 /100 WBC 0-0 (BEAKER) (test code = 413) NEUTROPHILS RELATIVE PERCENT 61 % (BEAKER) (test code = 429) LYMPHOCYTES RELATIVE PERCENT 24 % (BEAKER) (test code = 430) MONOCYTES RELATIVE PERCENT 8 % (BEAKER) (test code = 431) EOSINOPHILS RELATIVE PERCENT 6 % (BEAKER) (test code = 432) BASOPHILS RELATIVE PERCENT 0 % (BEAKER) (test code = 437) NEUTROPHILS ABSOLUTE COUNT 4.18 K/ L 1.56-6.13 (BEAKER) (test code = 670) LYMPHOCYTES ABSOLUTE COUNT 1.62 K/ L 1.18-3.74 (BEAKER) (test code = 414) MONOCYTES ABSOLUTE COUNT (BEAKER) 0.56 K/ L 0.24-0.36 H (test code = 415) EOSINOPHILS ABSOLUTE COUNT 0.44 K/ L 0.04-0.36 H (BEAKER) (test code = 416) BASOPHILS ABSOLUTE COUNT (BEAKER) 0.02 K/ L 0.01-0.08 (test code = 417) IMMATURE GRANULOCYTES-RELATIVE 0.40 % 0.00-1.00 PERCENT (BEAKER) (test code = 2801) PROTHROMBIN TIME/[id number] 05:28:18 Test Item Value Reference Range Interpretation Comments PROTIME (BEAKER) (test code = 14.2 seconds 11.9-14.2 759) INR (BEAKER) (test code = 370) 1.12 <=5.90 RECOMMENDED COUMADIN/WARFARIN INR THERAPY RANGESSTANDARD DOSE: 2.0 - 3.0 Includes: PROPHYLAXIS for venous thrombosis, systemic embolization; TREATMENT for venous thrombosis and/or pulmonary embolus.HIGH RISK: Target INR is 2.5-3.5 for patients with mechanical heart valves.POCT-GLUCOSE [id number] 21:37:51 Test Item Value Reference Range Interpretation Comments POC-GLUCOSE METER 180 mg/dL 70-110 H : [facility] (test code = [facility] [place], 1538) [address]: Silverware Assembler/Techni denzel ID = [id number] for Solange Live POCT-GLUCOSE [id number] 16:11:56 Test Item Value Reference Range Interpretation Comments POC-GLUCOSE METER 118 mg/dL 70-110 H : TESTED A T [facility] 6720 (LU) (test code = [facility] [place], 1538) 07[address]: Silverware Assembler/Techni denzel ID = [id number] for HANK MARS Venous doppler legs [id number] 08:03:03Ejection FractionSLE [facility]CHO [facility] 2022-11-14 08:03:03Ejection FractionSLE ECHO [facility] [id number] 08:03:03Ejection FractionSLEH ECHO [facility] [id number] 08:03:03[facility]jection [facility]SLE [facility] bilateral 2022-11-14 08:03:03Ejection FractionSLE ECHO [facility] HospitalMR, BRAIN, [id number] 06:14:00Unlisted Reason for Exam - Click Yes and Enter Reason Below->No [facility] : 1955 Sex: FFINAL REPORT EXAM: MR, BRAIN, WITH \\T\\ WITHOUT CONTRAST CLINICAL INDICATION: Brain abscess. TECHNIQUE: Pre-contrast sagittal and axial T1-w, and axial T2-FLAIR, GRE, and diffusion-w sequences of the brain with ADC maps. Post- contrast axial fat-saturated T2-w and T1-w, and sagittal volumetric T1-w images of the brain with axial and coronal reformations. Intravenous contrast material was administered for the examination.ESRC.2.1.3 COMPARISON: MRI on CT from 4 hours prior FINDINGS:Parenchyma: Postsurgical changes status post right frontal craniotomy with with air-fluid level within the resection cavity and pneumocephalus component moderately decreased when correlated to 10/29/22 CT. There is increased fluid within the scalp overlying the craniotomy. No definite restricted diffusion associated with the fluid to suggest infection although some artifact from pneumocephalus somewhat obscures evaluation. Vasogenic edema within the adjacent right frontal lobe slightly increased inextent extending to the genu of the corpus callosum. There is shift of midline structures from right to left of 0.7 cm, previously measuring 0.6 cm. No infarction on DWI. No acute hemorrhage. Abnormal Enhancement: Enhancement surrounds the resection cavity. No additional abnormal enhancement separate from the postsurgical changes. Extra- axial Collection: As above Ventricular System: Effacement of theright lateral ventricle without hydrocephalus. Major Intracranial Flow Voids: Normal Osseous Structures: Status post right frontal craniotomy Included Orbits: Normal Paranasal Sinuses: Predominantly clear Tympanomastoid Cavities: Normal IMPRESSION:.Postsurgical changes status post right frontal craniotomy with moderately decreased pneumocephalus. There is unchanged to slightly increased shift of midline structures from right to left of 0.7 cm and slightly increased vasogenic edema extending to the genu of the corpus callosum. No restricted diffusion to suggest abscess although infection should be excluded clinically. Otherwise, no acute infarction or hemorrhage. Signed: Carolyn Calvert [facility] Verified Date/Time: 11/14/2022 06:14:31 CT, BRAIN, WITHOUT [id number] 22:47:00Reason for Exam (Free Text) - Addiitonal information for Radiologist->worsening LUE weakness, ?seizure with hx of meningioma s/p resection c/b infection s/p I\\T\\D [facility] 1955 Sex: FFINAL REPORT EXAM: CT, BRAIN, WITHOUT CONTRAST INDICATION: Worsening left upper extremity weakness TECHNIQUE: CT images from skull base to vertex without IV contrast. This exam was performed according to the departmental dose optimization program which includes automated exposure control, adjustment of the mA and/or kV according to the patient size, and/or use of an iterative reconstruction technique. COMPARISON: 10/29/22 FINDINGS: Parenchyma: Postsurgical changes changes status post right frontal craniotomy for resection of meningioma and fluid collection drainage. There is air-fluid level within the resection cavity increased component of fluid and decreased pneumocephalus compared to prior with extension to the extra-axial space subjacent to the craniotomy. Fluid also extends into the scalp overlying the craniotomy up to 0.8 cm. There is moderately increased vasogenic edema within the adjacent cerebral parenchyma with shift of midline structures from right to left of 1.1 cm, previously 0.6 cm. No overt ventricular entrapment. No downward herniation. No evidence of large territory infarction. No intraparenchymal hematoma. Extra-axial Collection: As above Ventricular System: As above Osseous Structures: No acute osseous abnormality. Included Orbits: Normal Paranasal Sinuses: Predominantly clear Tympanomastoid Cavities: Normal Other: None IMPRESSION:Postsurgical changes status post right frontal craniotomy with persistent air-fluid level within the subjacent resection cavity. There is increased mass effect with increased vasogenic edema and leftward midline shift now 1.1 cm. Fluid also extends into the soft tissues overlying the craniotomy. No intracranial hemorrhage. Given increased mass effect, infection/abscess is a consideration. Imaging cannot confirm sterility of the collection and infection should be excluded clinically. Signed: Carolyn Calvert MDReport Verified Date/Time: 11/13/2022 22:47:42 SARS-COV2/RT-PCR ([facility])2022-11-13 22:28:22 Test Item Value Reference Range Interpretation Comments SARS-COV2/RT-PCR Negative Negative The SARS-Co V-2 target (test code = nucleic acids a re not [id number]) detected in thi s specimen. Negative result [...] revoked sooner. Fact Sheet for Healthcare Providers: https://www.[employer].OrderBorder m/Documents/Xpert%20Xpress%20SARS%20CoV-2/Fact%20Sheets/302-8412%01OLGD-LPU-2%20 HEALTHCARE%20PROVIDERS%20FACT%20SHEET.pdf Fact Sheet for Healthcare Patients: https://www.[employer].cn/Documents/Xpert%20Xp ress%20SARS%20CoV-2/Fact%20Sheets/302-3801%45TDUD-CON-6%20PATIENT%20FACT%20SHEET .pdfBASIC METABOLIC [id number] 21:40:05 Test Item Value Reference Range Interpretation Comments SODIUM (BEAKER) 138 meq/L 136-145 (test code = 381) POTASSIUM 3.4 meq/L 3.5-5.1 L (BEAKER) (test code = 379) CHLORIDE (BEAKER) 100 meq/L 98-107 (test code = 382) CO2 (BEAKER) 30 meq/L 22-29 H (test code = 355) BLOOD UREA 24 mg/dL 7-21 H NITROGEN (BEAKER) (test code = 354) CREATININE 2.10 mg/dL 0.57-1.25 H (BEAKER) (test code = 358) GLUCOSE RANDOM 97 mg/dL 70-105 (BEAKER) (test code = 652) CALCIUM (BEAKER) 8.6 mg/dL 8.4-10.2 (test code = 697) EGFR (BEAKER) 26 Interpretatio n of eGFR (test code = mL/min/1.73 values Stage De scription 1092) sq m Result G1 Rory l or high >=90 G2 Mildly decreased [...] not appl icable for dialysis patien ts Silverware Assembler ID - ADMINCBC W/PLT COUNT & AUTO [id number] 21:26:32 Test Item Value Reference Range Interpretation Comments WHITE BLOOD CELL COUNT (BEAKER) 8.0 K/ L 3.5-10.5 (test code = 775) RED BLOOD CELL COUNT (BEAKER) 3.20 M/ L 3.93-5.22 L (test code = 761) HEMOGLOBIN (BEAKER) (test code = 8.5 GM/DL 11.2-15.7 L 410) HEMATOCRIT (BEAKER) (test code = 25.6 % 34.1-44.9 L 411) MEAN CORPUSCULAR VOLUME (BEAKER) 80 fL 79-95 (test code = 753) MEAN CORPUSCULAR HEMOGLOBIN 26.6 pg 25.6-32.2 (BEAKER) (test code = 751) MEAN CORPUSCULAR HEMOGLOBIN CONC 33.2 GM/DL 32.2-35.5 (BEAKER) (test code = 752) RED CELL DISTRIBUTION WIDTH 15.5 % 11.7-14.4 H (BEAKER) (test code = 412) PLATELET COUNT (BEAKER) (test 327 K/CU MM 150-450 code = 756) MEAN PLATELET VOLUME (BEAKER) 8.5 fL 9.4-12.3 L (test code = 754) NUCLEATED RED BLOOD CELLS 0 /100 WBC 0-0 (BEAKER) (test code = 413) NEUTROPHILS RELATIVE PERCENT 66 % (BEAKER) (test code = 429) LYMPHOCYTES RELATIVE PERCENT 20 % (BEAKER) (test code = 430) MONOCYTES RELATIVE PERCENT 7 % (BEAKER) (test code = 431) EOSINOPHILS RELATIVE PERCENT 6 % (BEAKER) (test code = 432) BASOPHILS RELATIVE PERCENT 0 % (BEAKER) (test code = 437) NEUTROPHILS ABSOLUTE COUNT 5.29 K/ L 1.56-6.13 (BEAKER) (test code = 670) LYMPHOCYTES ABSOLUTE COUNT 1.62 K/ L 1.18-3.74 (BEAKER) (test code = 414) MONOCYTES ABSOLUTE COUNT (BEAKER) 0.54 K/ L 0.24-0.36 H (test code = 415) EOSINOPHILS ABSOLUTE COUNT 0.46 K/ L 0.04-0.36 H (BEAKER) (test code = 416) BASOPHILS ABSOLUTE COUNT (BEAKER) 0.03 K/ L 0.01-0.08 (test code = 417) IMMATURE GRANULOCYTES-RELATIVE 0.40 % 0.00-1.00 PERCENT (BEAKER) (test code = 2801) RAD, CHEST, 1 VIEW, NON [id number] 21:10:00Reason for exam:->bedbound, 93% on room airShould this be performed at the bedside?->Yes [facility] 1955 Sex: FFINAL REPORT INDICATION: bedbound, 93% on room air COMPARISON: 10/31/2022 TECHNIQUE:Single frontal view of the chest. FINDINGS: Lungs and pleura: Clear lungs. No effusion. Heart and mediastinum: Normal heart size. Unremarkable mediastinal contours. Osseous structures: No acute abnormality. Other: Right transjugular central venous catheter terminates in the SVC. IMPRESSION: No acute intrathoracic abnormality. Signed: Carolyn Calvertisaac Verified Date/Time: 11/13/2022 21:10:01 POCT-GLUCOSE [id number] 13:47:56 Test Item Value Reference Range Interpretation Comments POC-GLUCOSE METER 218 mg/dL 70-110 H : TESTED A T [facility] 6720 (BEAKER) (test code = [facility], 1538) 737[address]: Silverware Assembler/Techni denzel ID = [id number] for MA ROLANDO VADIM POCT-GLUCOSE [id number] 08:14:19 Test Item Value Reference Range Interpretation Comments POC-GLUCOSE METER 188 mg/dL 70-110 H : TESTED A T [facility] 6720 (BEAKER) (test code = [facility], 1538) [address]40[address]: Silverware Assembler/Techni denzel ID = [id number] for MA RTINEZ, VADIM BASIC METABOLIC [id number] 05:14:41 Test Item Value Reference Range Interpretation Comments SODIUM (BEAKER) 138 meq/L 136-145 (test code = 381) POTASSIUM 3.2 meq/L 3.5-5.1 L (BEAKER) (test code = 379) CHLORIDE (BEAKER) 100 meq/L 98-107 (test code = 382) CO2 (BEAKER) 28 meq/L 22-29 (test code = 355) BLOOD UREA 32 mg/dL 7-21 H NITROGEN (BEAKER) (test code = 354) CREATININE 1.96 mg/dL 0.57-1.25 H (BEAKER) (test code = 358) GLUCOSE RANDOM 174 mg/dL 70-105 H (BEAKER) (test code = 652) CALCIUM (BEAKER) 8.4 mg/dL 8.4-10.2 (test code = 697) EGFR (BEAKER) 28 Interpretatio n of eGFR (test code = mL/min/1.73 values Stage De scription 1092) sq m Result G1 Rory l or high >=90 G2 Mildly decreased [...] glom erular filtration rate . Estimated GFR i s not applicable for dialysis patients Silverware Assembler ID - [id number] 05:13:20 Test Item Value Reference Range Interpretation Comments MAGNESIUM (BEAKER) (test code = 1.8 mg/dL 1.6-2.6 627) Silverware Assembler ID - MARCOCBC W/PLT COUNT & AUTO [id number] 04:58:31 Test Item Value Reference Range Interpretation Comments WHITE BLOOD CELL COUNT (BEAKER) 12.5 K/ L 3.5-10.5 H (test code = 775) RED BLOOD CELL COUNT (BEAKER) 3.56 M/ L 3.93-5.22 L (test code = 761) HEMOGLOBIN (BEAKER) (test code = 9.5 GM/DL 11.2-15.7 L 410) HEMATOCRIT (BEAKER) (test code = 28.1 % 34.1-44.9 L 411) MEAN CORPUSCULAR VOLUME (BEAKER) 79 fL 79-95 (test code = 753) MEAN CORPUSCULAR HEMOGLOBIN 26.7 pg 25.6-32.2 (BEAKER) (test code = 751) MEAN CORPUSCULAR HEMOGLOBIN CONC 33.8 GM/DL 32.2-35.5 (BEAKER) (test code = 752) RED CELL DISTRIBUTION WIDTH 15.6 % 11.7-14.4 H (BEAKER) (test code = 412) PLATELET COUNT (BEAKER) (test 326 K/CU MM 150-450 code = 756) MEAN PLATELET VOLUME (BEAKER) 8.8 fL 9.4-12.3 L (test code = 754) NUCLEATED RED BLOOD CELLS 0 /100 WBC 0-0 (BEAKER) (test code = 413) NEUTROPHILS RELATIVE PERCENT 71 % (BEAKER) (test code = 429) LYMPHOCYTES RELATIVE PERCENT 15 % (BEAKER) (test code = 430) MONOCYTES RELATIVE PERCENT 8 % (BEAKER) (test code = 431) EOSINOPHILS RELATIVE PERCENT 5 % (BEAKER) (test code = 432) BASOPHILS RELATIVE PERCENT 0 % (BEAKER) (test code = 437) NEUTROPHILS ABSOLUTE COUNT 8.85 K/ L 1.56-6.13 H (BEAKER) (test code = 670) LYMPHOCYTES ABSOLUTE COUNT 1.88 K/ L 1.18-3.74 (BEAKER) (test code = 414) MONOCYTES ABSOLUTE COUNT (BEAKER) 1.03 K/ L 0.24-0.36 H (test code = 415) EOSINOPHILS ABSOLUTE COUNT 0.63 K/ L 0.04-0.36 H (BEAKER) (test code = 416) BASOPHILS ABSOLUTE COUNT (BEAKER) 0.05 K/ L 0.01-0.08 (test code = 417) IMMATURE GRANULOCYTES-RELATIVE 0.70 % 0.00-1.00 PERCENT (BEAKER) (test code = 2801) POCT-GLUCOSE [id number] 21:59:43 Test Item Value Reference Range Interpretation Comments POC-GLUCOSE METER 113 mg/dL 70-110 H : TESTED A T [facility] 6720 (BEAKER) (test code = [facility], 153) 823[address]: Silverware Assembler/Techni denzel ID = [id number] for Levine (contract)Tanner POCT-GLUCOSE [id number] 21:11:39 Test Item Value Reference Range Interpretation Comments POC-GLUCOSE METER 121 mg/dL 70-110 H : TESTED A T [facility] 6720 (BEAKER) (test code = [facility], 1538) 368[address]: Silverware Assembler/Techni denzel ID = [id number] for Jil linares (contract)Emmanuelle POCT-GLUCOSE [id number] 17:29:39 Test Item Value Reference Range Interpretation Comments POC-GLUCOSE METER 182 mg/dL 70-110 H : TESTED A T [facility] 6720 (BEAKER) (test code = [facility], 1538) [address]: Silverware Assembler/Techni denzel ID = [id number] for VADIM SCHAEFER [id number] 17:22:15 Test Item Value Reference Range Interpretation Comments SODIUM (BEAKER) (test code = 381) 136 meq/L 136-145 POTASSIUM (BEAKER) (test code = 3.3 meq/L 3.5-5.1 L 379) CHLORIDE (BEAKER) (test code = 382) 99 meq/L 98-107 CO2 (BEAKER) (test code = 355) 27 meq/L 22 Silverware Assembler ID - Clarence, TUNNELED CATHETER [id number] 12:34:00Reason for exam:->tunnelled iv for iv antibio as OP, cannot get PICC, thanks [facility] 1955 Sex: FFINAL REPORT Tunneled central venous catheter insertion. History: IV access neededfor long-term IV antibiotics. Modality: Sonography and fluoroscopy. Sedation: No moderate sedation was used. Total intra-service time of sedation was 30 minutes. The patient's vital signs were monitored throughout the procedure and recorded in the patient's medical record by the nurse. Plating Tank Operator: Geraldine Jay MD. Professor Of Biblical Studies: Alex Smith MD. Approach: Right internal jugular vein Estimated blood loss: < 5 cc. Specimen: None. Fluoroscopy Time: 0.5 min.Reference Air Kerma (Ka, r): 0.0mGy. Technique: Informed written consent was obtained. Discussion of risks, benefits, and alternatives were made with the patient. The patient expressed understanding and agreed to proceed. A universaltimeout was performed prior to starting the procedure. All elements maximal sterile barrier technique was utilized for this procedure, including utilization of sterile scrub solution for skin prep, a la rge sterile sheet to cover the areas of the patient that were not prepped, and hand hygiene, mask, head covering, and sterile gown for performing radiologist and scrub technologist. The skin was anesthetized with 2% lidocaine.Ultrasound evaluation showed a patent and compressible right vein, which waspunctured under direct real-time ultrasound guidance with a micropuncture needle. An ultrasound image was saved to PACS. A 0.018 inch wire was placed through the needle into the IVC. A 6 [place] peel away sheath was was placed. A subcutaneous tunnel was created in the right anterior chest wall by bluntdissection. A 21 cm 6 [place] Bard Dual Lumen Power Line was brought through the tunnel and advanced through the sheath, with its distal tip terminating in the right atrium. The peel-away sheath was removed. The ports were flushed and aspirated easily following placement. The catheter was sutured to the skin to secure its placement. The small jugular incision site was closed using Dermabond. Vital signs were monitored throughout the procedure by a nurse, and remained stable. The patient tolerated theprocedure well and left the department in the same condition. Results: Spot radiograph of the chestdemonstrates the new tunneled central venous catheter to lie in the expected position with its tip overlying the superior right atrium. Impression: Successful, uncomplicated placement of a right internal jugular tunneled central venous catheter using sonographic and fluoroscopic guidance and conscious sedation. The catheter is ready for immediate use. Signed: Geraldine Jay MDReport Verified Date/Time: 11/05/2022 12:34:31 Reading Location: [place] [address] Angio Body Reading Room POCT-GLUCOSE [id number] 11:44:49 Test Item Value Reference Range Interpretation Comments POC-GLUCOSE METER 202 mg/dL 70-110 H : TESTED A T [facility] 6720 (BEAKER) (test code = [facility], 1538) 447[address]: Silverware Assembler/Techni denzel ID = [id number] for NICOLE MARSHALL, VADIM POCT-GLUCOSE [id number] 10:20:23 Test Item Value Reference Range Interpretation Comments POC-GLUCOSE METER 186 mg/dL 70-110 H : TESTED A T [facility] 6720 (BEAKER) (test code = [facility], 1538) 00076: Silverware Assembler/Techni denzel ID = [id number] for NICOLE MARSHALL, VADIM POCT-GLUCOSE [id number] 23:50:38 Test Item Value Reference Range Interpretation Comments POC-GLUCOSE METER 166 mg/dL 70-110 H : TESTED A T [facility] 6720 (BEAKER) (test code = [facility], 1538) 67359: Silverware Assembler/Techni denzel ID = [id number] for Solange Live POCT-GLUCOSE [id number] 17:49:02 Test Item Value Reference Range Interpretation Comments POC-GLUCOSE METER 183 mg/dL 70-110 H : TESTED A T [facility] 6720 (BEAKER) (test code = [facility], 1538) 24742: Silverware Assembler/Techni denzel ID = [id number] for Hank Roach PROTHROMBIN TIME/[id number] 11:53:44 Test Item Value Reference Range Interpretation Comments PROTIME (BEAKER) (test code = 14.4 seconds 11.9-14.2 H 759) INR (BEAKER) (test code = 370) 1.19 <=5.90 RECOMMENDED COUMADIN/WARFARIN INR THERAPY RANGESSTANDARD DOSE: 2.0 - 3.0 Includes: PROPHYLAXIS for venous thrombosis, systemic embolization; TREATMENT for venous thrombosis and/or pulmonary embolus.HIGH RISK: Target INR is 2.5-3.5 for patients with mechanical heart valves.POCT-GLUCOSE [id number] 11:52:56 Test Item Value Reference Range Interpretation Comments POC-GLUCOSE METER 190 mg/dL 70-110 H : TESTED A T [facility] 6720 (BEAKER) (test code = [facility], 1538) 15966: Silverware Assembler/Techni denzel ID = [id number] for Hank Roach Anaerobic [id number] 11:32:40 Test Item Value Reference Interpretation Comments Range Result (test code = 3+ Same organism A Refe r to previous 6463-4) has been isolated culture of - from culture(s) of Cutibacte rium the same body site acnes and collection date. Repeat identification performed only after consultation with the clinical microbiology laboratory. Lab Interpretation Abnormal (test code = 68467-1) [facility] [id number] 11:32:40 Test Item Value Reference Interpretation Comments Range Result (test code = 3+ Same organism A Refe r to previous 6463-4) has been isolated culture of - from culture(s) of Cutibacte rium the same body site acnes and collection date. Repeat identification performed only after consultation with the clinical microbiology laboratory. Lab Interpretation Abnormal (test code = 73725-0) [facility] [id number] 11:32:40 Test Item Value Reference Interpretation Comments Range Result (test code = 3+ Same organism A Refe r to previous 6463-4) has been isolated culture of - from culture(s) of Cutibacte rium the same body site acnes and collection date. Repeat identification performed only after consultation with the clinical microbiology laboratory. Lab Interpretation Abnormal (test code = 43954-7) [facility] [id number] 11:32:40 Test Item Value Reference Interpretation Comments Range Result (test code = 3+ Same organism A Refe r to previous 6463-4) has been isolated culture of - from culture(s) of Cutibacte rium the same body site acnes and collection date. Repeat identification performed only after consultation with the clinical microbiology laboratory. Lab Interpretation Abnormal (test code = 21308-9) [facility] [id number] 11:32:40 Test Item Value Reference Interpretation Comments Range Result (test code = 3+ Same organism A Refe r to previous 6463-4) has been isolated culture of - from culture(s) of Cutibacte rium the same body site acnes and collection date. Repeat identification performed only after consultation with the clinical microbiology laboratory. Lab Interpretation Abnormal (test code = 73078-4) [facility] [id number] 11:32:40 Test Item Value Reference Range Interpretation Comments CULTURE (BEAKER) A 3+ Same org anism has been (test code = 1095) isolated from culture(s) of the same body s ite and collection date . Repeat identification performed only after cons ultation with the [facility] microbiology laboratory.Refe r to previous cultur e of - Cutibacterium a cnes ANAEROBIC [id number] 11:32:39 Test Item Value Reference Range Interpretation Comments CULTURE (BEAKER) A <1+ Same or ganism has been (test code = 1095) isolated from culture(s) of the same body s ite and collection date . Repeat identification performed only after cons ultation with the [facility] microbiology laboratory.Refe r to previous cultur e of - Cutibacterium a cnes ANAEROBIC [id number] 11:32:39 Test Item Value Reference Range Interpretation Comments CULTURE (BEAKER) A <1+ Same or ganism has been (test code = 1095) isolated from culture(s) of the same body s ite and collection date . Repeat identification performed only after cons ultation with the [facility] microbiology laboratory.Refe r to previous cultur e of - Cutibacterium a cnes ANAEROBIC [id number] 11:32:38 Test Item Value Reference Range Interpretation Comments CULTURE (BEAKER) (test A 4+ Cu tibacterium acnes code = 1095) ANAEROBIC [id number] 11:32:38 Test Item Value Reference Range Interpretation Comments CULTURE (BEAKER) A 4+ Same org anism has been (test code = 1095) isolated from culture(s) of the same body s ite and collection date . Repeat identification performed only after cons ultation with the [facility] microbiology laboratory.Refe r to previous cultur e of - Cutibacterium a cnes POCT-GLUCOSE [id number] 08:20:52 Test Item Value Reference Range Interpretation Comments POC-GLUCOSE METER 128 mg/dL 70-110 H : TESTED A T [facility] 6720 (BEAKER) (test code = [place], 1538) [address]: Silverware Assembler/Techni denzel ID = [id number] for An Hank ko SARS-COV2/RT-PCR ([facility])2022-11-04 07:10:47 Test Item Value Reference Range Interpretation Comments SARS-COV2/RT-PCR Negative Negative The SARS-Co V-2 target (test code = nucleic acids a re not 1936375) detected in thi s specimen. Negative result [...] revoked sooner. Fact Sheet for Healthcare Providers: https://www.[employer].co m/Documents/Xpert%20Xpress%20SARS%20CoV-2/Fact%20Sheets/551-3947%48EZUA-KAA-6%20 HEALTHCARE%20PROVIDERS%20FACT%20SHEET.pdf Fact Sheet for Healthcare Patients: https://www.[employer].cn/Documents/Xpert%20Xp ress%20SARS%20CoV-2/Fact%20Sheets/302-8177%64JJRR-YRI-2%20PATIENT%20FACT%20SHEET .pdfCOMPREHENSIVE METABOLIC [id number] 06:14:28 Test Item Value Reference Range Interpretation Comments TOTAL PROTEIN 5.7 gm/dL 6.0-8.3 L (BEAKER) (test code = 770) ALBUMIN (BEAKER) 2.9 g/dL 3.5-5.0 L (test code = 1145) ALKALINE 98 U/L 40-150 PHOSPHATASE (BEAKER) (test code = 346) BILIRUBIN TOTAL 0.4 mg/dL 0.2-1.2 (BEAKER) (test code = 377) SODIUM (BEAKER) 138 meq/L 136-145 (test code = 381) POTASSIUM (BEAKER) 3.0 meq/L 3.5-5.1 L (test code = 379) CHLORIDE (BEAKER) 102 meq/L 98-107 (test code = 382) CO2 (BEAKER) (test 24 meq/L 22-29 code = 355) BLOOD UREA 31 mg/dL 7-21 H NITROGEN (BEAKER) (test code = 354) CREATININE 2.22 mg/dL 0.57-1.25 H (BEAKER) (test code = 358) GLUCOSE RANDOM 89 mg/dL 70-105 (BEAKER) (test code = 652) CALCIUM (BEAKER) 8.5 mg/dL 8.4-10.2 (test code = 697) AST (SGOT) 47 U/L 5-34 H (BEAKER) (test code = 353) ALT (SGPT) 49 U/L 6-55 (BEAKER) (test code = 347) EGFR (BEAKER) 24 Interpretatio n of eGFR (test code = 1092) mL/min/1.[address] age Description sq m Result G1 Rory l or high >=90 G2 Mildly decreased [...] not appl icable for dialysis patien ts Silverware Assembler ID - [id number] 06:13:30 Test Item Value Reference Range Interpretation Comments MAGNESIUM (BEAKER) (test code = 1.9 mg/dL 1.6-2.6 627) Silverware Assembler ID - [id number] 06:13:30 Test Item Value Reference Range Interpretation Comments PHOSPHORUS (BEAKER) (test code = 3.3 mg/dL 2.3-4.7 604) Silverware Assembler ID - ALEXA, [id number] 05:20:55 Test Item Value Reference Range Interpretation Comments CALCIUM IONIZED (BEAKER) (test 0.98 mmol/L 1.12-1.27 L code = 698) PH, BLOOD (BEAKER) (test code = 7.42 1810) CBC W/PLT COUNT & AUTO [id number] 05:16:07 Test Item Value Reference Range Interpretation Comments WHITE BLOOD CELL COUNT (BEAKER) 12.8 K/ L 3.5-10.5 H (test code = 775) RED BLOOD CELL COUNT (BEAKER) 3.61 M/ L 3.93-5.22 L (test code = 761) HEMOGLOBIN (BEAKER) (test code = 9.6 GM/DL 11.2-15.7 L 410) HEMATOCRIT (BEAKER) (test code = 28.8 % 34.1-44.9 L 411) MEAN CORPUSCULAR VOLUME (BEAKER) 80 fL 79-95 (test code = 753) MEAN CORPUSCULAR HEMOGLOBIN 26.6 pg 25.6-32.2 (BEAKER) (test code = 751) MEAN CORPUSCULAR HEMOGLOBIN CONC 33.3 GM/DL 32.2-35.5 (BEAKER) (test code = 752) RED CELL DISTRIBUTION WIDTH 15.4 % 11.7-14.4 H (BEAKER) (test code = 412) PLATELET COUNT (BEAKER) (test 328 K/CU MM 150-450 code = 756) MEAN PLATELET VOLUME (BEAKER) 8.8 fL 9.4-12.3 L (test code = 754) NUCLEATED RED BLOOD CELLS 0 /100 WBC 0-0 (BEAKER) (test code = 413) NEUTROPHILS RELATIVE PERCENT 68 % (BEAKER) (test code = 429) LYMPHOCYTES RELATIVE PERCENT 17 % (BEAKER) (test code = 430) MONOCYTES RELATIVE PERCENT 8 % (BEAKER) (test code = 431) EOSINOPHILS RELATIVE PERCENT 6 % (BEAKER) (test code = 432) BASOPHILS RELATIVE PERCENT 0 % (BEAKER) (test code = 437) NEUTROPHILS ABSOLUTE COUNT 8.73 K/ L 1.56-6.13 H (BEAKER) (test code = 670) LYMPHOCYTES ABSOLUTE COUNT 2.16 K/ L 1.18-3.74 (BEAKER) (test code = 414) MONOCYTES ABSOLUTE COUNT (BEAKER) 1.04 K/ L 0.24-0.36 H (test code = 415) EOSINOPHILS ABSOLUTE COUNT 0.70 K/ L 0.04-0.36 H (BEAKER) (test code = 416) BASOPHILS ABSOLUTE COUNT (BEAKER) 0.04 K/ L 0.01-0.08 (test code = 417) IMMATURE GRANULOCYTES-RELATIVE 0.70 % 0.00-1.00 PERCENT (BEAKER) (test code = 2801) Protein, random [id number] 22:16:21 Test Item Value Reference Range Interpretation Comments Protein, Urine (test code = 143 mg/dL 0-14 H 2888-6) SONIYA (test code = SONIYA) Silverware Assembler ID - BS Lab Interpretation (test Abnormal code = 02099-0) [facility] [id number] 22:16:21 Test Item Value Reference Range Interpretation Comments Protein, Urine (test code = 143 mg/dL 0-14 H 2888-6) SONIYA (test code = SONIYA) Silverware Assembler ID - BS Lab Interpretation (test Abnormal code = 91480-0) [facility] [id number] 22:16:21 Test Item Value Reference Range Interpretation Comments Protein, Urine (test code = 143 mg/dL 0-14 H 2888-6) SONIYA (test code = SONIYA) Silverware Assembler ID - BS Lab Interpretation (test Abnormal code = 99627-1) [facility] [id number] 22:16:21 Test Item Value Reference Range Interpretation Comments Protein, Urine (test code = 143 mg/dL 0-14 H 2888-6) SONIYA (test code = SONIYA) Silverware Assembler ID - BS Lab Interpretation (test Abnormal code = 68935-8) [facility] [id number] 22:16:21 Test Item Value Reference Range Interpretation Comments Protein, Urine (test code = 143 mg/dL 0-14 H 2888-6) SONIYA (test code = SONIYA) Silverware Assembler ID - BS Lab Interpretation (test Abnormal code = 09010-3) [facility] [id number] 22:16:21 Test Item Value Reference Range Interpretation Comments CREATININE URINE (BEAKER) (test 67.1 mg/dL code = 375) Reference Range: No NormalsOperator ID - BSPROTEIN, RANDOM [id number] 22:16:21 Test Item Value Reference Range Interpretation Comments PROTEIN, URINE (BEAKER) (test code 143 mg/dL 0-14 H = 1569) Silverware Assembler ID - BSPOCT-GLUCOSE [id number] 21:11:11 Test Item Value Reference Range Interpretation Comments POC-GLUCOSE METER 181 mg/dL 70-110 H : TESTED A T [facility] 6720 (BEAKER) (test code [facility], = 1538) [address]: Silverware Assembler/Techni denzel ID = [id number] for Edson Chamberlain POCT-GLUCOSE [id number] 18:19:30 Test Item Value Reference Range Interpretation Comments POC-GLUCOSE METER 260 mg/dL 70-110 H : TESTED A T [facility] 6720 (BEAKER) (test code = [facility], 1538) [address]: Silverware Assembler/Techni denzel ID = [id number] for An Hank ko POCT-GLUCOSE [id number] 11:56:22 Test Item Value Reference Range Interpretation Comments POC-GLUCOSE METER 209 mg/dL 70-110 H : TESTED A T [facility] 6720 (BEAKER) (test code = [facility], 1538) 57[address]: Silverware Assembler/Techni denzel ID = [id number] for An Hank ko SURGICALLY OBTAINED CULTURE + GRAM [id number] 10:27:28 Test Item Value Reference Interpretation Comments Range CULTURE (BEAKER) A From Broth Only (test code = 1095) Bacillus species, not anthracis GRAM STAIN RESULT 1+ WBCs (BEAKER) (test code = 1123) GRAM STAIN RESULT 1+ gram positive (BEAKER) (test code = coccobacilli 44697) CULTURE (BEAKER) STAPHYLOCOCCUS A From Brot h Only (test code = 1095) HOMINIS Staphyloc occus hominis Clindamycin (test R code = 10) Erythromycin (test R code = 4) Linezolid (test code S = 40) Nitrofurantoin (test S code = 23) Oxacillin (test code S = 14) Rifampin (test code = S 43) Tetracycline (test S code = 2) Trimethoprim + S Sulfamethoxazole (test code = 47) Vancomycin (test code S = 13) GRAM STAIN RESULT 1+ gram positive (BEAKER) (test code = coccobacilli 436143) BASIC METABOLIC [id number] 10:02:23 Test Item Value Reference Range Interpretation Comments SODIUM (BEAKER) 137 meq/L 136-145 (test code = 381) POTASSIUM 3.5 meq/L 3.5-5.1 Specimen slight ly (BEAKER) (test hemolyzed code = 379) CHLORIDE (BEAKER) 102 meq/L 98-107 (test code = 382) CO2 (BEAKER) 27 meq/L 22-29 (test code = 355) BLOOD UREA 30 mg/dL 7-21 H NITROGEN (BEAKER) (test code = 354) CREATININE 2.18 mg/dL 0.57-1.25 H Specimen slight ly (BEAKER) (test hemolyzed code = 358) GLUCOSE RANDOM 220 mg/dL 70-105 H (BEAKER) (test code = 652) CALCIUM (BEAKER) 8.8 mg/dL 8.4-10.2 (test code = 697) EGFR (BEAKER) 25 Interpretatio n of eGFR (test code = mL/min/1.73 values Stage De scription 1092) sq m Result G1 Rory l or high >=90 G2 Mildly decreased [...] not appl icable for dialysis patien ts Silverware Assembler ID - PIAYA LCBC W/PLT COUNT & AUTO [id number] 09:46:32 Test Item Value Reference Range Interpretation Comments WHITE BLOOD CELL COUNT (BEAKER) 13.7 K/ L 3.5-10.5 H (test code = 775) RED BLOOD CELL COUNT (BEAKER) 4.25 M/ L 3.93-5.22 (test code = 761) HEMOGLOBIN (BEAKER) (test code = 11.0 GM/DL 11.2-15.7 L 410) HEMATOCRIT (BEAKER) (test code = 34.5 % 34.1-44.9 411) MEAN CORPUSCULAR VOLUME (BEAKER) 81 fL 79-95 (test code = 753) MEAN CORPUSCULAR HEMOGLOBIN 25.9 pg 25.6-32.2 (BEAKER) (test code = 751) MEAN CORPUSCULAR HEMOGLOBIN CONC 31.9 GM/DL 32.2-35.5 L (BEAKER) (test code = 752) RED CELL DISTRIBUTION WIDTH 15.8 % 11.7-14.4 H (BEAKER) (test code = 412) PLATELET COUNT (BEAKER) (test 393 K/CU MM 150-450 code = 756) MEAN PLATELET VOLUME (BEAKER) 9.0 fL 9.4-12.3 L (test code = 754) NUCLEATED RED BLOOD CELLS 0 /100 WBC 0-0 (BEAKER) (test code = 413) NEUTROPHILS RELATIVE PERCENT 79 % (BEAKER) (test code = 429) LYMPHOCYTES RELATIVE PERCENT 11 % (BEAKER) (test code = 430) MONOCYTES RELATIVE PERCENT 6 % (BEAKER) (test code = 431) EOSINOPHILS RELATIVE PERCENT 3 % (BEAKER) (test code = 432) BASOPHILS RELATIVE PERCENT 0 % (BEAKER) (test code = 437) NEUTROPHILS ABSOLUTE COUNT 10.83 K/ L 1.56-6.13 H (BEAKER) (test code = 670) LYMPHOCYTES ABSOLUTE COUNT 1.48 K/ L 1.18-3.74 (BEAKER) (test code = 414) MONOCYTES ABSOLUTE COUNT (BEAKER) 0.86 K/ L 0.24-0.36 H (test code = 415) EOSINOPHILS ABSOLUTE COUNT 0.42 K/ L 0.04-0.36 H (BEAKER) (test code = 416) BASOPHILS ABSOLUTE COUNT (BEAKER) 0.04 K/ L 0.01-0.08 (test code = 417) IMMATURE GRANULOCYTES-RELATIVE 0.70 % 0.00-1.00 PERCENT (BEAKER) (test code = 2801) POCT-GLUCOSE [id number] 09:25:30 Test Item Value Reference Range Interpretation Comments POC-GLUCOSE METER 211 mg/dL 70-110 H : TESTED A T [facility] 6720 (BEAKER) (test code = [facility], 1538) [address]: Silverware Assembler/Techni denzel ID = [id number] for An Hank ko POCT-GLUCOSE [id number] 20:49:54 Test Item Value Reference Range Interpretation Comments POC-GLUCOSE METER 275 mg/dL 70-110 H : TESTED A T [facility] 6720 (BEAKER) (test code [facility], = 1538) 379[address]: Silverware Assembler/Techni denzel ID = [id number] for Edson Chamberlain POCT-GLUCOSE [id number] 18:17:08 Test Item Value Reference Range Interpretation Comments POC-GLUCOSE METER 282 mg/dL 70-110 H : TESTED A T [facility] 6720 (BEAKER) (test code = [facility] [employer] [facility], 1538) [address]: Silverware Assembler/Techni denzel ID = [id number] for An Hank ko POCT-GLUCOSE [id number] 12:40:06 Test Item Value Reference Range Interpretation Comments POC-GLUCOSE METER 243 mg/dL 70-110 H : TESTED A T [facility] 6720 (BEAKER) (test code = [facility], 1538) 637[address]: Silverware Assembler/Techni denzel ID = [id number] for An Hank ko Surgically obtained culture + gram [id number] 11:12:10 Test Item Value Reference Range Interpretation Comments Result (test code = From Broth Only A 6463-4) Bacillus species, not anthracis Gram Stain Result (test <1+ gram positive code = 1123) coccobacilli Lab Interpretation (test Abnormal code = 15432-2) [facility] [id number] 11:12:10 Test Item Value Reference Range Interpretation Comments Result (test code = From Broth Only A 6463-4) Bacillus species, not anthracis Gram Stain Result (test <1+ gram positive code = 1123) coccobacilli Lab Interpretation (test Abnormal code = 20898-1) [facility] gram [id number] 11:12:10 Test Item Value Reference Range Interpretation Comments Result (test code = From Broth Only A 6463-4) Bacillus species, not anthracis Gram Stain Result (test <1+ gram positive code = 1123) coccobacilli Lab Interpretation (test Abnormal code = 74642-8) [facility] gram [id number] 11:12:10 Test Item Value Reference Range Interpretation Comments Result (test code = From Broth Only A 6463-4) Bacillus species, not anthracis Gram Stain Result (test <1+ gram positive code = 1123) coccobacilli Lab Interpretation (test Abnormal code = 07375-6) [facility] gram [id number] 11:12:10 Test Item Value Reference Range Interpretation Comments Result (test code = From Broth Only A 6463-4) Bacillus species, not anthracis Gram Stain Result (test <1+ gram positive code = 1123) coccobacilli Lab Interpretation (test Abnormal code = 56384-1) [facility] GRAM [id number] 11:12:10 Test Item Value Reference Range Interpretation Comments CULTURE (BEAKER) A From Broth Only (test code = Bacillus specie s, 1095) not anthracis GRAM STAIN 1+ WBCs RESULT (BEAKER) (test code = 1123) GRAM STAIN <1+ gram positive RESULT (BEAKER) coccobacilli (test code = 45065) SURGICALLY OBTAINED CULTURE + GRAM [id number] 11:05:27 Test Item Value Reference Range Interpretation Comments CULTURE (BEAKER) (test code No growth = 1095) GRAM STAIN RESULT (BEAKER) 2+ WBCs (test code = 1123) GRAM STAIN RESULT (BEAKER) No organisms seen (test code = 05012) POCT-GLUCOSE [id number] 07:55:45 Test Item Value Reference Range Interpretation Comments POC-GLUCOSE METER 256 mg/dL 70-110 H : TESTED [place] [facility] 6720 (BEAKER) (test code = [place], 1538) [address]: Silverware Assembler/Techni denzel ID = [id number] for Hank Roach [id number] 06:35:38 Test Item Value Reference Range Interpretation Comments CREATININE 2.31 mg/dL 0.57-1.25 H (BEAKER) (test code = 358) EGFR (BEAKER) 23 Interpretatio n of eGFR (test code = mL/min/1.73 values Stage De scription 1092) sq m Result G1 Rory l or high >=90 G2 Mildly decreased [...] not appl icable for dialysis patien ts Silverware Assembler ID - PIAYA LCBC W/PLT COUNT & AUTO [id number] 05:10:28 Test Item Value Reference Range Interpretation Comments WHITE BLOOD CELL COUNT (BEAKER) 14.9 K/ L 3.5-10.5 H (test code = 775) RED BLOOD CELL COUNT (BEAKER) 3.79 M/ L 3.93-5.22 L (test code = 761) HEMOGLOBIN (BEAKER) (test code = 10.1 GM/DL 11.2-15.7 L 410) HEMATOCRIT (BEAKER) (test code = 29.4 % 34.1-44.9 L 411) MEAN CORPUSCULAR VOLUME (BEAKER) 78 fL 79-95 L (test code = 753) MEAN CORPUSCULAR HEMOGLOBIN 26.6 pg 25.6-32.2 (BEAKER) (test code = 751) MEAN CORPUSCULAR HEMOGLOBIN CONC 34.4 GM/DL 32.2-35.5 (BEAKER) (test code = 752) RED CELL DISTRIBUTION WIDTH 15.4 % 11.7-14.4 H (BEAKER) (test code = 412) PLATELET COUNT (BEAKER) (test 300 K/CU MM 150-450 code = 756) MEAN PLATELET VOLUME (BEAKER) 8.8 fL 9.4-12.3 L (test code = 754) NUCLEATED RED BLOOD CELLS 0 /100 WBC 0-0 (BEAKER) (test code = 413) NEUTROPHILS RELATIVE PERCENT 78 % (BEAKER) (test code = 429) LYMPHOCYTES RELATIVE PERCENT 10 % (BEAKER) (test code = 430) MONOCYTES RELATIVE PERCENT 6 % (BEAKER) (test code = 431) EOSINOPHILS RELATIVE PERCENT 4 % (BEAKER) (test code = 432) BASOPHILS RELATIVE PERCENT 0 % (BEAKER) (test code = 437) NEUTROPHILS ABSOLUTE COUNT 11.61 K/ L 1.56-6.13 H (BEAKER) (test code = 670) LYMPHOCYTES ABSOLUTE COUNT 1.52 K/ L 1.18-3.74 (BEAKER) (test code = 414) MONOCYTES ABSOLUTE COUNT (BEAKER) 0.89 K/ L 0.24-0.36 H (test code = 415) EOSINOPHILS ABSOLUTE COUNT 0.64 K/ L 0.04-0.36 H (BEAKER) (test code = 416) BASOPHILS ABSOLUTE COUNT (BEAKER) 0.05 K/ L 0.01-0.08 (test code = 417) IMMATURE GRANULOCYTES-RELATIVE 0.90 % 0.00-1.00 PERCENT (BEAKER) (test code = 2801) POCT-GLUCOSE [id number] 17:27:36 Test Item Value Reference Range Interpretation Comments POC-GLUCOSE METER 255 mg/dL 70-110 H : TESTED A T [facility] 6720 ([facility]) (test code = [facility], 1538) 16256: Silverware Assembler/Techni denzel ID = [id number] for Alexandra-Ho, Ane l POCT-GLUCOSE [id number] 13:51:28 Test Item Value Reference Range Interpretation Comments POC-GLUCOSE METER 214 mg/dL 70-110 H : TESTED A T [facility] 6720 (AKER) (test code = [facility], 1538) 32979: Silverware Assembler/Techni denzel ID = [id number] for Alexandra-Ho, Ane l SURGICALLY OBTAINED CULTURE + GRAM [id number] 12:36:25 Test Item Value Reference Interpretation Comments Range CULTURE (AKER) STAPHYLOCOCCUS A <1+ Staph ylococcus (test code = 1095) SCIURI sciuri Clindamycin (test S code = 10) Erythromycin (test R code = 4) Linezolid (test code S = 40) Nitrofurantoin (test S code = 23) Oxacillin (test code S = 14) Rifampin (test code = S 43) Tetracycline (test S code = 2) Trimethoprim + S Sulfamethoxazole (test code = 47) Vancomycin (test code S = 13) GRAM STAIN RESULT 2+ WBCs (BEAKER) (test code = 1123) GRAM STAIN RESULT No organisms seen (BEAKER) (test code = 128989) POCT-GLUCOSE [id number] 09:31:21 Test Item Value Reference Range Interpretation Comments POC-GLUCOSE METER 189 mg/dL 70-110 H : TESTED A T [facility] 6720 (BEAKER) (test code = [place], 1538) 153[address]: Silverware Assembler/Techni denzel ID = [id number] for Alexandra-Ho, Ane l [id number] 05:28:52 Test Item Value Reference Range Interpretation Comments CREATININE 2.79 mg/dL 0.57-1.25 H (BEAKER) (test code = 358) EGFR (BEAKER) 18 Interpretatio n of eGFR (test code = mL/min/1.73 values Stage De scription 1092) sq m Result G1 Rory l or high >=90 G2 Mildly decreased [...] not appl icable for dialysis patien ts Silverware Assembler ID - JOVANY LHEPATIC FUNCTION [id number] 05:12:57 Test Item Value Reference Range Interpretation Comments TOTAL PROTEIN (BEAKER) (test code = 5.6 gm/dL 6.0-8.3 L 770) ALBUMIN (BEAKER) (test code = 1145) 2.8 g/dL 3.5-5.0 L BILIRUBIN TOTAL (BEAKER) (test code 0.5 mg/dL 0.2-1.2 = 377) BILIRUBIN DIRECT (BEAKER) (test 0.2 mg/dL 0.1-0.5 code = 706) ALKALINE PHOSPHATASE (BEAKER) (test 91 U/L 40-150 code = 346) AST (SGOT) (BEAKER) (test code = 23 U/L 5-34 353) ALT (SGPT) (BEAKER) (test code = 30 U/L 6-55 347) Silverware Assembler ID Saira MANZO LCBC W/PLT COUNT & AUTO [id number] 04:57:26 Test Item Value Reference Range Interpretation Comments WHITE BLOOD CELL COUNT (BEAKER) 12.2 K/ L 3.5-10.5 H (test code = 775) RED BLOOD CELL COUNT (BEAKER) 3.58 M/ L 3.93-5.22 L (test code = 761) HEMOGLOBIN (BEAKER) (test code = 9.5 GM/DL 11.2-15.7 L 410) HEMATOCRIT (BEAKER) (test code = 27.9 % 34.1-44.9 L 411) MEAN CORPUSCULAR VOLUME (BEAKER) 78 fL 79-95 L (test code = 753) MEAN CORPUSCULAR HEMOGLOBIN 26.5 pg 25.6-32.2 (BEAKER) (test code = 751) MEAN CORPUSCULAR HEMOGLOBIN CONC 34.1 GM/DL 32.2-35.5 (BEAKER) (test code = 752) RED CELL DISTRIBUTION WIDTH 14.7 % 11.7-14.4 H (BEAKER) (test code = 412) PLATELET COUNT (BEAKER) (test 247 K/CU MM 150-450 code = 756) MEAN PLATELET VOLUME (BEAKER) 8.7 fL 9.4-12.3 L (test code = 754) NUCLEATED RED BLOOD CELLS 0 /100 WBC 0-0 (BEAKER) (test code = 413) NEUTROPHILS RELATIVE PERCENT 75 % (BEAKER) (test code = 429) LYMPHOCYTES RELATIVE PERCENT 11 % (BEAKER) (test code = 430) MONOCYTES RELATIVE PERCENT 7 % (BEAKER) (test code = 431) EOSINOPHILS RELATIVE PERCENT 5 % (BEAKER) (test code = 432) BASOPHILS RELATIVE PERCENT 0 % (BEAKER) (test code = 437) NEUTROPHILS ABSOLUTE COUNT 9.20 K/ L 1.56-6.13 H (BEAKER) (test code = 670) LYMPHOCYTES ABSOLUTE COUNT 1.39 K/ L 1.18-3.74 (BEAKER) (test code = 414) MONOCYTES ABSOLUTE COUNT (BEAKER) 0.89 K/ L 0.24-0.36 H (test code = 415) EOSINOPHILS ABSOLUTE COUNT 0.58 K/ L 0.04-0.36 H (BEAKER) (test code = 416) BASOPHILS ABSOLUTE COUNT (BEAKER) 0.03 K/ L 0.01-0.08 (test code = 417) IMMATURE GRANULOCYTES-RELATIVE 1.10 % 0.00-1.00 H PERCENT (BEAKER) (test code = 2801) POCT-GLUCOSE [id number] 21:28:39 Test Item Value Reference Range Interpretation Comments POC-GLUCOSE METER 131 mg/dL 70-110 H : TESTED A [facility] 6720 (LU) (test code = BRANDT Mccracken [facility], 1538) [id number]: Silverware Assembler/Techni denzel ID = [id number] for Go Luis chance SURGICALLY OBTAINED CULTURE + GRAM [id number] 19:21:57 Test Item Value Reference Range Interpretation Comments CULTURE (BEAKER) (test code No growth = 1095) GRAM STAIN RESULT (BEAKER) <1+ WBCs (test code = 1123) GRAM STAIN RESULT (BEAKER) No organisms seen (test code = 59458) POCT-GLUCOSE [id number] 16:17:21 Test Item Value Reference Range Interpretation Comments POC-GLUCOSE METER 176 mg/dL 70-110 H : Notified RN/MD: (LU) (test code = TESTED AT [facility] 6720 1538) [facility] [address]: Silverware Assembler/Techni denzel ID = [id number] for LL OYD, TIKEYA RAD, CHEST, 1 VIEW, NON [id number] 15:30:00Reason for exam:- >hypoxiaShould this be performed at the bedside?->Yes [facility] 1955 Sex: FFINAL REPORT Chest one view. Clinical history: hypoxia Comparison: October 29, 2022, September 20, 2022 Discussion: A frontal chest is provided. Cardiomediastinal contours are unchanged. There is mild interstitial prominence, which may reflect pulmonary edema. No discrete consolidationis identified. No pneumothorax, or large effusion. Bony structures demonstrate degenerative changes.Signed: Ruddy Kruse Verified Date/Time: 10/31/2022 15:30:47 Reading Location: [address] Ortho Consult Reading Room POCT-GLUCOSE [id number] 12:26:08 Test Item Value Reference Range Interpretation Comments POC-GLUCOSE METER 230 mg/dL 70-110 H : Notified RN/MD: (BEAKER) (test code = TESTED AT [facility] 6720 1538) [facility], [address]: Silverware Assembler/Techni denzel ID = [id number] for RICHELLE RIVAS [id number] 12:18:41 Test Item Value Reference Range Interpretation Comments POTASSIUM (BEAKER) (test code = 3.4 meq/L 3.5-5.1 L 379) Silverware Assembler ID - [id number] 12:18:40 Test Item Value Reference Range Interpretation Comments MAGNESIUM (BEAKER) (test code = 2.2 mg/dL 1.6-2.6 627) Silverware Assembler ID - MARCOVANCOMYCIN LEVEL, [id number] 11:43:31 Test Item Value Reference Range Interpretation Comments VANCOMYCIN RANDOM (BEAKER) (test 21.1 ug/mL code = 523) Reference Range: No NormalsOperator ID - MARCOPOCT-GLUCOSE [id number] 06:54:29 Test Item Value Reference Range Interpretation Comments POC-GLUCOSE METER 191 mg/dL 70-110 H : TESTED A T [facility] 6720 (BEAKER) (test code = [facility], 1538) [address]: Silverware Assembler/Techni denzel ID = [id number] for JIE MEDRANO Tissue [id number] 05:41:43 Test Item Value Reference Range Interpretation Comments Case Report (test code Surgical Pathology = 104) Report Case: [id number] Authorizing Provider: Smith Connors MD Collected: 10/29/2022 03:59 PM Ordering Location: [place] [address] ICU Received: 10/29/2022 04:54 PM Pathologist: Rc Quiñones MD Specimen: Explant, plates and screws explant for ID DIAGNOSIS (test code = s1tiyOFlJOLqs7zcHQHuiR 3220) FuZzEwMzNcZnRuYmpcdWMx IHtccnRmMVxlcGljOTYwMl iymaXzXFZdrVZrU2Vlggru TWubRD1sXS3qzGvevJEbhC DwCEZbWoZem3ofg945lLCz d1gyVWZNjtzbiSz7bYnzE8 9yz3L8WfdrP02okRDnRPX5 GWXhNXRglETxQWMfONG0ML DrbJDlD4ynGLUtGY8lqpty VUdzCKteATDuyGT1ATPgzJ YlY6RzJBXcPOtbENHkqnl2 VjDnXo4ibKLkjSgwWCjfBK JkXHBsYWluXGZzMjAgRXhw uYBpnOssyvAxz9WcbFyhrB PkTYMrCeOtEKopmzS8PJXs JHLyRZMra0GakBImBUgjWH R4z4lkyYVuDVVyeIEiRZLg MFxhbnNpXGRlZmxhbmcxMD UmZYT0buOdADHxNCzoHJBj ZAxjZs7iyOQceEyaGaKlBG Fbc3veooIZpvcyhAi5u4ov IYJnJqR8lESeMZgpF2zwlw PikIWxULOcJMt9iH72EWJx cG8kiFFkNWdsyxRcPyT2PY opTCWzScI1ADGzhGMiGJQq H7ddCTIbMMhrWNPeATlspO HjROW7hXtoi3C6dBPuuPQa oEwjUvFlCtVpYyCPi1DlOZ y9eLsmJ8PdDUCuPkQ0oUDu DGPhHJpqXRNbQKKhvnL8jM 37ZTgezcK1pWAoj1Bia57t z197hP4xmWFkKNX8GOFpAG KjwLTdQTSpLYQ6FLIjmJXu H7euTIIiOZ1gwjbwYUilGF flUJDavGC5LOOccVTjV4Ej XZVuBKfnBYAnlnw1ChXyYo 4feDFdhOeoXEdvs3mhd1zf uOFaXgi1ZWAgPgHxMtmuAU ivk8Gpd7laAGCzlz8nOTK2 jWZltFiib9F8oXSxFDRvaA LdDQPmVJ5moCXaFZUuuN5k cmxjXHBnYnJkcmhlYWRccG krnmBnGi4paSzfQBR4MGhy F5ukgF2aEqE4WVimH2zbtF 3tKGd6OBdlYAOcrLL2cgA4 DZXzePVkG7GkwV6mCYLsXI 8jodt0g3qeDWD5AMckSRSq ArD6bnZ4CLFsjALqBQKnfX bzJWrsz666LBI8ErWjBCHq q0SuU8WpnLykA06adSuiC7 2bDGDvoLproU8jqWpafV3q DvTvYoIyYWgokVxpVW4mLQ JmN1ecdJUuVRDzNBQhC0ql AwNbkH8gqTnrVWxamhRuHP FyOmh1OKVbrOPyDOFjHvv0 XYOmOKLlL14swtbaLKN8rZ 9yp7jrq6OwXXluVRG3ZCSj a52vOLwsgpM7EGgzRq92XD owSCS7FZjzIPM3eY== CPT Code(s) (test code c0uhwNUhKVIyaRV2KxMtGI = 3357) Myo3fxx2BkkMJtoFNiHJwy qBGoaiMxps48aRH5xL41HM 1yFQHcGsQ8HUKpokY3Doi9 OBJqABPmeYSxL407b1tmm3 xlfpOvcGD1bDroTQHzlisb AdG2SQqgLBMqhgbaPZq7ST vfZYYrlEW0EMJjwAJcA5Nb EAKrGL4ojjq9OBW2KYiqVQ IzCxT1WGVcnKInFEXwcIqv YWylu866KJR3CzKrJXXhdj QqcReunP1kOwAhWNN6LJFy MFxwYXJ9 CLINICAL HISTORY (test p2pblYUyOZRytID9UfGfXV code = 3356) Vwn1nex4YdrJNkqZIfVSam iOUaivSaex66lLB9aQ96XC 9xJUQaPuI2QCXzsyX8Aog8 VXTaZDUwnCHuY309f1zag5 mruaWsyAH4XXOaXOFdI2Vo KX0bDRTneQRcZ70nmMGoFQ X7YRFmQLNrrYMiNNPrHZY2 FBYseTEkP6jaITEaOW7nsj jdKShgSBxmSOHdiQH6REHf iMTrF2GoGAQaOUbpBFUdvs o5CsSiLz6swKHboYwfOXtt YXJkXHJpMVxwbGFpblxmcz CpQUNmFVYOcIneuLMyjz7g zCQhUAilQuRcMRRbU0Ltd0 xwYXJ9 GROSS DESCRIPTION (test d6osmFAjTPUdcPNAAOCyR8 code = [id number]) zyldSkAPHkrGYiX8Qdzgqe LTlhET9nIW7cnNafwURhwC BlVR9SEYVwEvYfQPKchDDp qdKsMcOfKUDskTPclTT1YV BjNC2gjowlDAtaLPugMNRb hdK0WRAceSWoN9GyCCQwBJ 3thkgxGCX0ETifwJ7agcVP UzuxXj2fmGZuoIgyYiTqTe NoYXJzZXQwXGZuaWwgQXJp CXz8vM5TFctbFRO0OJLAYm qiVDDgZT7Od5guEBCepEOw NAH9LKocfUGsJPCaMJLqGG a6KJKvHBxgoPUcMQ4zdLik GfrycWkbh6RvbIGcBLpdJL ZtVHTeULyeTGBwRO9ZNuXe YQnqRDb4TAnuKHg1UTo0GC 4HGhJfNNIwWtU6GJPwXrJi SCq8CKgvAW4TTOC9CVk4JR B7QHK0FCGcMGPaGSBdTiXn XGYgQXJpYWwgXFxmbCBcXG 5jfVxwbGFpbiBBLiBFeHBs KZ81GzgfLBNcYIfpSZRwG1 1bw6CGg3UsVO4GYZq5ejIo asshpO9cJVPldmOxIWkzzS NgL8qwCkGqFZQUBBWwrBOp ZCBmcmVzaCBsYWJlbGVkIH dpdGggdGhlIHBhdGllbnQn yvGpAK5uHLYuE0Qdz6Nde5 4gbnVtYmVyIGFuZCAicGxh hRNhJDNlSFMsP2Noc4SzQS FyZSAxMyBtZXRhbGxpYyBn csM9RJL8jSCqHCUsSDIeZ7 Elg8JwvNedrYGjXGGzgQQd WVQsTuPjoEXhhxJxUE2tcN orUpwnTC5eYGLhHHjuXAKd MB4ehCOvRDAtkkBbKxFmLJ LujQsxVqLquyG1WTZhXM5u b4SbWSVgVNNudSX1AOUuiF hhdCBtZWFzdXJlIDIuNCB4 GJAyLDP4HWXdTXMcfFWnjf AbtRG3ZADbMMWoQLDiBOYt hC78nzPqs2AlPDXkDSVlvy ImrOMnDIVoQYBll0O3MSCh o7M9GA9cGTHbHYLnt8wjr8 decccxjQ6dJ1BbvKLzj21b aXMgaWRlbnRpZmllZDpcbG zxUIGmhBhtADI2FaZ5Rgwn hDjkOFVHUOlejI0cVBblyV 0gSMVaG4Nbh1CrdEyykV3k fhDseCXlgaA4DDtpuj8iFV 0uZSWuP4Cio19xJAIlOUNd bQMbfYI9BMKnWWZLjYiuFN Lru2MhhIKeGj6hWAajb7Bn QOG6HB5uzgF8vB4tMA4mkP kuXGxpbmUgXGxpbmUgUGls YXIgQXJndWVsbGVzLCBQQS cdGAFvEDBXD0JeFKuumVui lN9eCQXhG60xp1FYj7HtJY VzBBryf0vgeZlqu2LmlQYt URziXBLtlUWkAKdynN6aXn Bai8zyuRz9EEljgwB3YUYw ue0CFigkyQ5gMxCnp9fukH f9WTYIMiqhnaM5d4ggrQwx m2KqsUAhUO7FBz8= Gross assessment was [facility] performed at (test code [facility], = 2777) Department of Pathology, [address] [place] [address], [place] [address], [facility] [id number] 05:41:43 Test Item Value Reference Range Interpretation Comments Case Report (test code Surgical Pathology = 104) Report Case: [id number] Authorizing Provider: Smith Connors MD Collected: 10/29/2022 03:59 PM Ordering Location: [place] [address] ICU Received: 10/29/2022 04:54 PM Pathologist: Rc Quiñones MD Specimen: Explant, plates and screws explant for ID DIAGNOSIS (test code = v3ssmRJhTNXmh9xlFZRiaW 3220) FuZzEwMzNcZnRuYmpcdWMx IHtccnRmMVxlcGljOTYwMl bokvEqKBHeuOMrE8Vqzrnz SGjdNQ4pTQ2hmWqceRNefX FyAWXlZpZsm4pex989fDRe g4eyJDQRwsgsyEd2jTmiD4 3ml4A4CzzqD24giQUiWGH7 GNEzCLFpwYQlTODqCIH6WL TbzPPaX2dgQMPcWK1nlxjy RLuhSQmaSBSarAT0WPYwnB FmO6DaZTIyMMrkTSJmwbd8 PgDhZa5hyWReaSajOLetJW JkXHBsYWluXGZzMjAgRXhw sDQjdAyaflZdd5KufDmjhD KzRCMaLpFyMJoojlF4EJUh LXNmARCzb9PlnKMfJKxmVU V3t3bamSLkGGTeoRUhPFVw MFxhbnNpXGRlZmxhbmcxMD EfBPV1foYeOUQkMDjnZVJr AJjvSx6cvDAsrGxzHpTsXP Ftz0uizwTKufxgbJh8r4bm RMZpAoJ2yGTtVXuqG6qnti FblQClUWSaHXd2iH57VGVl cC7enJRjQCmjpaMfBiK1UP fkPFUwMyV3KUXtyMLiRIVf S5ieMEMcJHxrETJmINkewE IlWFK4aHngr3F2zNVudBNw xBgmHiUnPeSkFjJNu8BoEW q8lUyhP0YaBNYoYxO7eAWy KNBjWZpfLLQaIIQcomV9iW 39UVzxgjA9qXQrc2Hhn47h u421cE6leLGxCXK4UFFlKK HpgBZfNNWbKBK3EQRwcBKo S2esJAIxBB4ostivEWklCM duMRBywES0PLXdpYXdR5Sk NFToWRrbKJDopep7LfRuUl 4zfUAhsXnvHEzfa5nko2tz gRKrNwz8VRBgCaUpJicxHN urr7Vvl9kpCWLwde8lXIX6 rJSwcDzpn2K8eTCxKBPodJ UpLWWvPY2eaYYtWPChrM6r cmxjXHBnYnJkcmhlYWRccG zzfwEuGa6nuOoyYPK5WFmq X3vxoZ0sDpK2VLstO2eetI 3nRBn7GPgpEMEwiJH7goZ8 AOQceGMaS2CqyA4wYTCmFE 4wqbp1p3nkBWY8GErnHASh QtP0lnV1KWMxjXOxDMCliG vbBNjre779QPC4KhRqSMDr z5EnB9DtxKwfZ94hzLxeR2 0sZIGlsApccW8hpAmlqZ4f IxRpBfJgNMsvlVtfBH6hZF SuR2blhRRnXYEfXCOtX0nt IePaiF3quInqRKajfxCdNA GsKpn9RHQrmPErPGXxAzo3 KCLuLMWkR09fopozTWZ1eY 3sr9djj4TzRWcxAPU1IOTm i68mTAysofD5MZbaWp02AZ nmSKJ6EApcCXD4tY== CPT Code(s) (test code r4rqdVEwFSIriTR4OgXqKY = 3357) Uvf5ymc4WunVYfjIFbVAwx aSDsqsIbls57mDN9kR18FN 5pOUMtGcH9XPDshpM2Gpk1 BDJvJCWfhQWlQ014z9pbi9 qjswPqnOC9tOieVOJklwsp ZkF7KMcaVBTpfxbbBGn2UA zyWEZabBC1WBUfqYXmO8Yx KBWzSX9rddt4ECJ4UMewUV BaRtU4GQRuuJGvFJEaxMmm WAsma513MQI0EcKtBSAzju KamIztzQ5gLkEzRMD5VOQx MFxwYXJ9 CLINICAL HISTORY (test v4pvhOJeBKNzjWV4SeTvCJ code = 3356) Cny8igs5BicZIseUAhHRdj xRWnwuImcm04kOI2qQ79KP 8xFGJyWxG5MELvrrP6Bcx7 BUMdVOEkwOWdN350f9mmd6 rxhnMqdGX1KNCzAHXxM7Jf CS0xREKuiMOwY65mwTMyDT M1IXFrYRBegXJiSOTdAFB1 CKWstWQjO1uoQOPnGU1gns fdSGjmNSlaKJHjzFF6DTYy kCXxE1MvMRZzCYteJOZton t8XsBzCs0kjOFgxRevLLqi YXJkXHJpMVxwbGFpblxmcz FnANBkSOBLnYkleVXreb5z jQQlPHelNyPwIXJaB6Brv7 xwYXJ9 GROSS DESCRIPTION (test c0nxgUIjIPCvqBHIOUDmO8 code = [id number]) pzcmBpYJHpbJUaY4Kpthlx UBtiRC7uRU1yaVurgZOfcF AtTI4MFVKlJeBcNAKebCJz nzRaApNnIJYdoZCevFT2CT ElLR4lpmnuZTlpAZvjEHVw lpZ8SNTjxTArM8MiMHViIY 8akbkgZSO1GXbxyA1wmsWS ApcwJl2rtGQnsWccIkBwEy NoYXJzZXQwXGZuaWwgQXJp SXu8cJ0GMtnrHSU9DJRXWr miCRHbUN6Gj5duKKUcrTTx SKG4EKkxfVMdVYWePCUdIV j5KXUcLVjegFUiMJ9agRdq VyrfsQgvl0VxiHHlPSueTW LuILLcDUijHKGzMH9RKaFd NEviFFm5KWqiPDc2UHp2MG 9ZNzXeTGKjHjK5TDZhMzWa DVw9NEckPG0PTIP9AGq1GC D4RBD4NVJhNQTfLNZhCvDk XGYgQXJpYWwgXFxmbCBcXG 5jfVxwbGFpbiBBLiBFeHBs XZ90NofsELQzZEpdTIXyS4 5xk4HIk5IgXE9OOWz4kgQo chywvR2kILPhroSmYKwnmU WtZ6wtFzPsBWOAZBKpmCRu ZCBmcmVzaCBsYWJlbGVkIH dpdGggdGhlIHBhdGllbnQn nfFnER5oCLQvF5Nhe0Bbi5 4gbnVtYmVyIGFuZCAicGxh eDJcZHGxVOGsJ9Vbg8HeNE FyZSAxMyBtZXRhbGxpYyBn vyE7VUE7xCBtGBUvULViV4 Wuk4JszMijbNCvLPYbcUNi OMRiGxAxpHKzptWbQV3ihT arDnroRT2dIVBxDOspZRWw OI7npAAqYNCdvzOhGwQfKP DjuCecZdKgbuE8XZXpQI3n l1QsLIPlAHVqpEO1ITIctT hhdCBtZWFzdXJlIDIuNCB4 BHLrOSZ3EDBtBBBdaKWdse DcePO4VNJmUNZgVDPhRUDk zB01ouFuj5NiTSJkIIKipg DuvOOxLFNuFPLwi2N2WYIt e7U7EY2mGQVhHPDpt2ykk2 gqjxuovN7sR4OylCFab12h aXMgaWRlbnRpZmllZDpcbG iwXWCwtAqyJHR6JkW9Xlhn uYvbOUHYYLhviU7uZWcanK 2iGFYeE6Jha9NphBtbiZ6s xpWnpKKufiF2TEvqni8kFO 6rFKUfU2Llb25rCCYcPQJw jHPolTS7EYMqTMMKeHrsUQ Woj1WwnWUgDl9xKZqqf9Ux ZNV7HY9qjvY1aQ4gXB5yzT kuXGxpbmUgXGxpbmUgUGls YXIgQXJndWVsbGVzLCBQQS vhYBMxNNYWN7UfGEvtyOax qB5fEGSoK72is4RAj7KqWQ MnKOxfs3nieKfmc3FpbVNd EHdzZADdyYShFOusxW5aNd Ibk7xwkBx5DUharpR2SODx my3YLknmxB2hQrCkz3hrdF l4STBPVxuzgxH0x4accPrd p5GpjJHuXP1LJm8= Gross assessment was [facility] performed at (test code [facility] [place], = 2776) Department of Pathology, [address] [place] [address], [place] [address], [facility] [id number] 05:41:43 Test Item Value Reference Range Interpretation Comments Case Report (test code Surgical Pathology = 104) Report Case: [id number] Authorizing Provider: Smith Connors MD Collected: 10/29/2022 03:59 PM Ordering Location: [place] [address] ICU Received: 10/29/2022 04:54 PM Pathologist: Rc Quiñones MD Specimen: Explant, plates and screws explant for ID DIAGNOSIS (test code = o7ogpFDtDMLwx3mlHHQhhT 3220) FuZzEwMzNcZnRuYmpcdWMx IHtccnRmMVxlcGljOTYwMl dykjOiLQFwwWNeX8Yyskwk JTurSS3bFH4knDxtqFIatQ RuIMIhWgFqd6gjd277uJLs e2zzHHFKekjydNb2wNajX1 9az4Z8NgtvN35wmLGpHAD5 DGGtCVUcyXUoUXZtQDI1MN CycXTyI7oqUXYtJG7rqtbb AXqvAKeaCPPjyRP9OEKvyS FsW7FvOUYdSMxwPKYpoug9 ElRfWp5erOQeaOspUEgzNX JkXHBsYWluXGZzMjAgRXhw tOBllUguzhFbi3FelIvulK WyUICpPcZjUZvrqyD7YIOu NRVdGTVxe5NfsDBpZDzkDP R0i7vciLTlZJPftBNlFAUw MFxhbnNpXGRlZmxhbmcxMD BwLVO8iuHoEAExHKehAESs YTxiFw4gxQYhaLdySdKzDW Ofo8gmvyBSbvxvfQa0i7rw EFPjGsK6yQQdMChfI5pazw IglGUsJAYeTHv2nV09XRHz yQ1bdFEyLVvifsIvJhG2NU wfGECjRzJ4OROnzRQbMINi S4uhKXAuJXhlHGQuIQvcsJ AqQID8vQtjx8S2kCKwtSHg qWcoElVrOjFzGrAIm7RvLF g0uShuH4AfMTLtSeN7wXRy PAYfWGqrOGDuBIPdmwN6dG 38YSpyscQ3eFRzl7Dcb31c j201sE2ksUAgYHT8ZDMcVY PtrWUqOBQaBIM2EMWmcCKo G8jzCGXoSA2wusmuDGxoLO hsFHFkbGW7TFZjmXYfT3Rk GVRzEHopIOGcmjm2IaZxGx 9ioSJrjFifZJqpa1bkq3jm bLNvMlw6FFNnFqIjOesiCN ucj1Acg9txYCYgki5jGZT4 xBUycZnzj9Q7zHDsGIZvuU NsWIAnFW5hqNUxJHCyoG6o cmxjXHBnYnJkcmhlYWRccG mhygToBu5djNsfFVN8NNlk V1baoR6lAhY8QVptM7yjaW 2cDLp0TWydLFBblZQ0noM3 XQHntTIsR8NrhD9sXRLbSW 9jnlz0q8thEFI7CAglBEKz IgS8jaV4JLMlpLCbTWZnkV qfMMtdp473DFI5TrLqSOIf y4FlN9JifUjhF40nxNywG6 8oPFAhoLinxQ7kvEaplB2u QbBqZiFiLIywrAhrLH7rRU ZbX5nwoSRbIPKpFWDeT3zf XgIhhX3isHujABcyidOwDR IeCfv0PZHxzGLcSALrPam2 MGMiDVNtA03znuijNIR5xY 4sh6tdn5SgXAktGHJ3YYZh u06kUQiumxU3FNicOc28SG tdQGR2LEhiAET0uB== CPT Code(s) (test code w7ufoTVjUKLpyXV3DtWgQT = 3357) Wmv8tiy5VxgDHsiQXqKLvx tBUwbvZqxe85uTB5nV96BO 6uQTGpTjO1DUZhshA9Bki7 FAIdPXFsuVIpN449s6fjj5 knrsNffAS0wAljSHVbffen BeG7OErnRTWcfmksDXa1JL fmDPQpkWW0BBUupEVqA9Hb SSXiRE5yygd3LOO2GCruJU QfNkR6NFUmnVDpMDYrvLck PKuwl458VEZ2VfZwHIBxqo TuyJafkC1gCgCsNOH0YVIt MFxwYXJ9 CLINICAL HISTORY (test u7choPPhHNMspNL9AvByQP code = 3356) Htg8tvk5NafWQckUMpJUug eIVovrLbeg94rHW2lM25MH 2rKKWwPxD8NZXozkW0Vbn4 LUKmPFRguATwY101q4tuv5 ypgsFhoYV4SCGcPTZkS6Vw GB1nYHSzkYCyD05lsCFzOR P1HSDaTEHerLOqUZUcFHU5 QMNogBDvB6hoBCBuBG6tdx ooOTpiMCtuYATgfNM9DLOi aRWpL7SqTHYgNSxtFYTqeh v9QzYuSs3imRRjcFfkMWhi YXJkXHJpMVxwbGFpblxmcz CfBOZzCREOqCbmwMBrqj8a rWHeGMukKdEdDVApB2Uht3 xwYXJ9 GROSS DESCRIPTION (test o9qknLVlGBGreVMQFNWkC8 code = [id number]) pfphLxUQQxlOFnP1Duizey CEjdBS5qRW8xwFayaMDfyC QhXR8EIVQrHlKyTHIbxSKo ruXiWaJdYZIerYEsoDJ3ZU NfMR2nucxfOWibVBskPCBz szQ9NAFnpLRxU6TbPVItHZ 2bshooIDM5GMnwaT6gqhAL TdoiAp4odWCzjSmhLpWnUg NoYXJzZXQwXGZuaWwgQXJp WEz8bS4YLpytHOC4JYFADz flOUMgGK7Xt4xxDCJcfZMo MPH9VEajhMYjQEOwKKUwXK y8NKGqRQolyFCzPK9xbAwd DxiiaFdys1IjkGCuHOhuTW QpPFQzTDqoZUUzYJ0VMxJv SRunGCp5SDujTEs1YGe0LI 8HSrQdDTOkZfT9LWVjEiYw CQr9ABcbOW8NQQH0YVr8DD N3QUC6OXYxRUUuXCOqYkZb XGYgQXJpYWwgXFxmbCBcXG 5jfVxwbGFpbiBBLiBFeHBs MJ94VffuMPBmBSrdIPKeT5 9hb9UFu9KaUV9XFEe9lmDy heffaE7mZJPddfYjIOeywX EaB4xfTiSlAOBOKOUdnOBu ZCBmcmVzaCBsYWJlbGVkIH dpdGggdGhlIHBhdGllbnQn dyTuGP1yADZqO2Nvz5Pzs0 4gbnVtYmVyIGFuZCAicGxh qJRjLSUrMTYxA0Vnm5XeDU FyZSAxMyBtZXRhbGxpYyBn xvY7UJI0tHUiSHVrZLQmY1 Juv8NakSavtZGzINDxmESc ANRnSvEqePLhujTqKU1xlL fcQrtzCP6iGUSjUAxeDLJt RX0dgXOqMXWhdcVuDpWlHR ShyQwnGePssuS8ENVjRI1l z3UmDYDvUTIzrTM0MTHvzO hhdCBtZWFzdXJlIDIuNCB4 EJKdYMK1TEMfNYCqqKXbcv GatBQ6QKWdWGEuZCZeKRQk dT35aaJrv8KrBFXdZUUnqz NewWPtBTJzKRJbq4L3TKCx n9P3NP3bLGLzQKSnt3nyb1 ayehsciM3zF3QfcJTtu06j aXMgaWRlbnRpZmllZDpcbG knMVHuqRlmJYW4ZsV3Ashs rEsnEMORLBeyoV1lGCrmfD 6nFUNrD7Kwu3WilMajkD6y uqDhuSPckfT0GFjcdc9mDK 6qNWSoO7Jsh82bFOZcBJZm mOWctQP2AUQfSEOEuVitOX Cyb6JsiKGbMu8eVNcsb8Uo GSZ1JG4tlgH7nG6vMI2smF kuXGxpbmUgXGxpbmUgUGls YXIgQXJndWVsbGVzLCBQQS ieTJCoDLFUP0WvWAqwqNis pT8iZUPkJ29vb9RTc6GyST EwEFyma3nncAgiz8HfoBVo AIqlOKJalZGpLXmfqE0gWn Xtc0ldmCy0DOjsctR9ZPIz wg1WLwnwgR4jEgVad6lqbV c6NDJVZigljgQ8j0tyrVds x6VmoSRtCI3PGa3= Gross assessment was [facility] performed at (test code [facility], = 2777) Department of Pathology, [address] [place] [address], [place] [address], [facility] [id number] 05:41:43 Test Item Value Reference Range Interpretation Comments Case Report (test code Surgical Pathology = 104) Report Case: [id number] Authorizing Provider: Smith Connors MD Collected: 10/29/2022 03:59 PM Ordering Location: [place] [address] ICU Received: 10/29/2022 04:54 PM Pathologist: Rc Quiñones MD Specimen: Explant, plates and screws explant for ID DIAGNOSIS (test code = [id number] 3220) FuZzEwMzNcZnRuYmpcdWMx IHtccnRmMVxlcGljOTYwMl ccivIoLQDeqLCfL9Pyofnd XImwKD7kCU9wjXryaFYgiX BxMPJhHmIqh1cjy954xNLt h3smTNITbhyepTz5wHciM9 3gb9R1VnfaU90swTRwHRF3 GVHmXQVjsVSoPOXtCRD2FT FvjRHyJ7abHEQbPU2dmipz HEwrHGflREZczCX2YKTxtI AkP3UtVBFjZZhfVDZlkos4 ZmCmAv1wpOCqiOmwBApoDG JkXHBsYWluXGZzMjAgRXhw zEXwwFdrfkZdk0RmzZqhoA TlMKFyXiUwYGaqatN0WMBz WCXjYJErz7SktFYpGPraGB C3d8queBKeMTMxeVLiUPVq MFxhbnNpXGRlZmxhbmcxMD GxIUH7xjWwLGUzYXoyGETh ITtgEh0njBUjiIlgWtIqAI Emq2oayzKKwmtdiZg7q8zk BSPpVgC3xBReDFmfN4cgic UwpWWjPOFiPZb0tI91ONBz oL1zyMEbYNzlykKqDoF0UH suOTUaPvI1IUVwaQFgHFYo L8zpUGTvFHirGBQvHEavfA ZqJAC1sPfll9W6gNUosUFb lFqbSyHwMmLdJeXHm7RbTL y2nZoaP3ExMBYtOhY9xXUx VHNzVTxbFWPxHPYkxtM8zJ 52AHnzkpG4yDWba7Mlr51o l457yH9rmCFqZYN1AQGiNM FyzQWvMGYjPNC4RMIwtAWr M1jzYRGtGK3mgvjtBGbiBE vsVJKfeCA8PVCddVZrQ1Dw RRWuUWipEMMphhd1WeTqRa 6yaXZpeYcjNVnzs7llp4ku fAFjNex7TWWlRdCyJgntWM sxj3Ykl4toRJZrwy3wLSD9 pUSexWrri0T7yJFbUVOgiG ZeJADtQL0puNMcEFLmiR5n cmxjXHBnYnJkcmhlYWRccG kyheFdBr0bdOtaYEL8IUgr D6mvrK5oFbL3RLqcE8uioV 1fTQk0UCkfVRYrdRO0xgJ6 SYLppCDkS1XouD1iWXQpXV 9qxxr5f5dkQBL2KVksCXFg JlK0jsZ1LMBcjHOyQHIxmH ouIEgua498IMO7XnCgPYNy z6GjP7XjvDtlU90pnFleD9 5kYJKiiZcrqY1mcMbnxH3k TmSnYgQyVLqqgCtxRR7gKP WyI3dzfBWnQTUfJOLwL1yz HaIwrD7dvExxVKhklrAwYQ QrYho4WEPieMAmPJDqGuw8 OEKcVSSiX28onwzrVNJ1oN 9tf9uqy0BmMYnjHIL5IBUq x47pISwxzyN2SApbAa02LI zfPIP1AWuqJLS5sC== CPT Code(s) (test code k0skoUMhFCBwsBV9KtCgXU = 3357) Ogl3dqs1HktCVytCCnOGwq mTUdueLizd69qQZ3zR69KN 1ySEQhBsG2WTWzfwJ9Srv4 BBXtCYGzoTVpD352y1fss1 wtuwAzjQZ9dBcgDAEkuree DqS7TZaxUQYmautbGUx5AW txZPRbqYW1TTRsvRIqT1Wc TKLsKL3dafh6MIN8MSnbPK IoLsJ6DLSdcKNnTOKbhHyj PWmaq965VOA0IiLiZTFcnv FoiUjquK9vLlWcGVE5FKTr MFxwYXJ9 CLINICAL HISTORY (test x0lfcBDiNWUytRT7NaPeTR code = 3352) Djr6pqr5RbyYJejRAoOKbu rKZtkvNzbc47bNJ9gP55AM 8iPRHeGkR0WJUsdcM2Okq1 DQPjSRCgaKMiU608e2yyq1 kcycPedBW2NOCnMXAgR7Zg MT9eXIWcaPXiQ91kcUMcFW V3CQWuOTCmfUCvEURnUGZ6 LKKsrBAjO7mvYGRlCT5xcz aoJCpwBQpwLMVrdOL8HYGy mOSwK4CdUODvPKgpCFSwwn c0ZkFqCs5kxKQtdHdeVVir YXJkXHJpMVxwbGFpblxmcz ZaVLLtCJDOfWvmyNFfsp4z mBIgUMgcYeCwTUTaF4Eig1 xwYXJ9 GROSS DESCRIPTION (test p0fxkHJcZAAjfDDYEJAlK8 code = [id number]) hycmTjBWOjnVFmU1Bkddrp TRlfLQ3kEJ5qyDudhKAnzF ZhLL2GLFXxCkHdLWLywRQj yhYdNaQpZGJwdWPonRP4YK PpSV8bpirxOCggJVjfMAJs jdE0KVQhrTCnK1GhJWZjZL 1okfatGKZ2IPvqkF0mhvWX TcnkMl2qtBBrrIkkRjJoVf NoYXJzZXQwXGZuaWwgQXJp KZw8aZ8RMecdUOB3IVKHSk upTXDnGB7Fj0vcFOHlsYXy BML0DExfrBIhIKQyGIGuTS d1GQIgJBpuxANmFP9enOga StgtlCpwn1BdaZMaVAofAR UrTETaSQpfQDSwTP0TRqVe UQciQCc2GGsbKAb1AHx2SO 9GZsFzQFTzGbC0WIErYkPa SXx9SVkoGM9MVOH5DVf4WD H4NSB0YVAkDXMaWQQvVbYq XGYgQXJpYWwgXFxmbCBcXG 5jfVxwbGFpbiBBLiBFeHBs OR40McxuSMSnYRotWBKzE7 2xu4JJd0AeBU8FYOw3ngKn lbnqxM0eFJVqaiUvIOoxyM AhW8tzRhEdGZRBWUCdrHAh ZCBmcmVzaCBsYWJlbGVkIH dpdGggdGhlIHBhdGllbnQn kfXfZU3zUYPxC1Wir8Wsm2 4gbnVtYmVyIGFuZCAicGxh zHThFEUcREDpU2Tfi0RkKO FyZSAxMyBtZXRhbGxpYyBn lnP0VDE1jKInRWTyWZJbW7 Vhs3YqnHwgqLHyMBAgkMGr XYGiGaRxtZHwbzMpXL1ztD kvQrhsNS6uAPLpWVsiVHEd MN6gxQQjRHSoqmYrShQpHV DuaSovXiYsdgH3QGLbYJ1c r3NpUDLiAETuaJZ8HYPgjK hhdCBtZWFzdXJlIDIuNCB4 WTWcSEM3OZIyXFNxaRXtrv TqjCC0WPTnXRVcFGHwFUCb pL74nqUml0LwPRVqTJLhdr JuyQFzMLRsXBCql6M7OYYr l4D0MS0uDVBbORVdm7obp5 tbhfxqpW6qJ6GqvSQnk44b aXMgaWRlbnRpZmllZDpcbG qrBYGvnOkrVXE5JwC6Qmlh aGaiQVWUDMbqfL0cBFodzL 4gCXKhB8Mmg3VddAcbpC4r drUthECwzyX0JModdu5kSA 7rZRQoT0Emj62xJBEbPMCz cJDfaXC0SQNoWUBYjHzmDE Jku9QmlUEwPc6hUEjfn2Ls ACM2SW1qytU5sR6dAD3pxL kuXGxpbmUgXGxpbmUgUGls YXIgQXJndWVsbGVzLCBQQS phFVZoSDWTN3HwDCpzoRqx tO5sOAHlU60dc0DAr0ApAB XlMQsop9mwjWsdc4IjlSSz GBneDKEwrJAuIAiuwN0wFt Kiw4tgxVu1SNcavrL9UIKo el3FSrzhfU9aBdQru9oetA u4NRKWJpwyesV9d5tfdZhs l9HixDHtTR6VTm1= Gross assessment was [facility] performed at (test code [facility], = 2777) Department of Pathology, [address] [place] [address], [place] [address], [facility] [id number] 05:41:43 Test Item Value Reference Range Interpretation Comments Case Report (test code Surgical Pathology = 104) Report Case: [id number] Authorizing Provider: Smith Connors MD Collected: 10/29/2022 03:59 PM Ordering Location: [place] [address] ICU Received: 10/29/2022 04:54 PM Pathologist: Rc Quiñones MD Specimen: Explant, plates and screws explant for ID DIAGNOSIS (test code = [id number] 3220) FuZzEwMzNcZnRuYmpcdWMx IHtccnRmMVxlcGljOTYwMl ddpoOaXVQdfXZtM5Srsxla DGgkJY7rTO8zwQimyMTdoM AoMQJsRcUsr4nhp832jLIy y2deIJNRgqrilOn3dWbtC8 0af8P3NxhjC60vqEPnRUX1 VTBlUUEzbRUcTXMqNKP4BW VqzAKgG5fyIDEtTI4tffrm HUdsSByuNVVeeDE6WBAloY SwV9SrGVQuPAobFDXikio1 MbDaEe7vpAPoqUfcIMzaTB JkXHBsYWluXGZzMjAgRXhw mJMobZyfclPpz5DkzAzqhF CdYGNsBkWnKSzpslW8AHHg UIRaZPCjr6EbuVFfHEdeHC Q7j1lksQZeCQPxsXXpHNSr MFxhbnNpXGRlZmxhbmcxMD FgXVM3ycLpHFDbIAwgLSDn GYicXh9hoGJkgVvdIcYpQC Rpc0jsfdFLeoxtcFz0e9pa UNQoMoQ1nCPxATcaN2judr MuzDSyEEWsXHi2zL63HRGt gW8xdWScOGavkbTfMgP4YT bgKLJlOmJ5QZQooXHsANIg T9mkZFGkLYkbBDBtQTmyxC LkFEV6lLuco7W6yABhjKVe rIzgWqEcJbPtVyPXk4LePT m5jHqyA1UaVVDhKuK5mVRu KWPhTPclYUKgAIVoivP9tE 13HJytnxT4vDMkb2Urv91p l182rO2wxAXsPGT3PHJeFO ObhJDoUZJrUMG6ILTytQDn L8bqFJImMX3skwgxFGrrQX fuCRIslYK9LAPtqNQwD6Ij KVKiDWcxGZSyxzl2ZzSrTn 0roHGjjIfeWHhfg6nmq0dh gZYnQqp1MVUyJrBvDtirEM llm9Emi0etPFMrie3sEHH8 bTCudKsaw2H1vCZgNGZygD XcLJStSE6ivFPnCWJlvI6x cmxjXHBnYnJkcmhlYWRccG tcodJzQl0jnVuzDPY6QNmp M5kzzB3yGaM8PTfcS1mykM 0fRQp9VBncPYLtqWB6yzA3 VBEbzPIrB3WqmI7mDCBhNT 5fwnc9o5epVPX4USvmIMAt FkD7ixD4APJmlSOoPTUrjZ huTLypw906AVD8FoHwJHPi j4ThB9IeaPuxH95ttNnnL7 0pWCZaqGjvuC5yxAzpgR2o QwBdZrXiRKosjDqnLA9tBP SbE1ulqSXuNJYpJGEfG9qz WgLolB0vwRsaKVzttoHnJB GsCex9FFBgyTTkJOVuJvl6 BRPxXFFkQ23kmabfOXR6fH 1ib8tfw2LsPFnwHRU7BPJo b26eHUudafV0ZUzrIr74JQ khMLG1KGxyJQW4wT== CPT Code(s) (test code k9sjyGArDCWeoXA5XdVhEF = 3357) Rpg8exy7DkcJQiyNYlUJuc bBHtbjKebw76zPB0dC51BM 8eEUJqIoF4LVJhjqI2Idq0 MQTpSPXhlHNcJ179j7icq9 iltvKfmOM7eOvjIANsfnzp QsF1LGpkYJBmvjgyFEm4QP gdNDVfvYX0PFNroEGhV9Oa PXWeOD6kvlu8IQQ8DFceHV AeAzD5GSWlmYLlTXWfiChu YZuwm078AOL5SoMaDIVekj RzlWrhmD0uIaUgMBK8MHXb MFxwYXJ9 CLINICAL HISTORY (test e1jtdKEqCYJbzPP7SzHfGT code = 3356) Bna7sji0XkzXAilNYyFBat xBZzceVabn60vBZ1xB34CD 7uDYZpJjI5DUXganQ1Rph6 DKWoFRFwzFKwE500v0dly2 xpmbHymQM6SDMsSTBsB1Tn CY3uUYRoxOPnM40xtLLwDT F6YNXkTDFqcESgDYTkVKI5 RWLviUDrR3uuEGRjLL9vax trYZmsSKifBPAaxUU4BOKd kQBsG5TgSOSkNApoZAZhpw t8LeVeLr3epNZnkGxqZCat YXJkXHJpMVxwbGFpblxmcz PqNOPdZPKDoXfccUYhxk5u vREiWMagSlAeJXUrW2Qki3 xwYXJ9 GROSS DESCRIPTION (test s5civMAgEJIybUAKWDUeA8 code = [id number]) gpdhIoTRUllKVhR9Adywdz QBggFN8cZL3ahBxzfGUvhE OjKV7ALTSiYrFvXYEwnDIs suSvXbFzOHMotQNgnUN0DF CaOF9vboreUYqpDQhgVAWh eoR7CQTwrPQuZ0IeWHYvWG 8bgwvmAXF5WFimiV6ghmHQ BbkkXb5icVLgmAkeCrBnTv NoYXJzZXQwXGZuaWwgQXJp KSy0jI1HSsfbNHY6ZEYVQc yxVNKtLT2Gg8tdXSOceDFz FUB4RXyuwRIlSBDjZSTiSO q2SDZhABbpbXWcGA3yaXvc YeuorYckd7LjfFVbYOdwDY ArVBMpFFtnKJNzVF1OKwRs POvxZXd8TAqsRLn5YOt7GN 5AJlSmGOMaVcQ7RAWzQaDp LFp5SPqyTK1TRSD7OYw6DW O5RDH6IBUkMXOuHXThSmXj XGYgQXJpYWwgXFxmbCBcXG 5jfVxwbGFpbiBBLiBFeHBs ZJ38OssbRUKhJKusYLBcF1 2cj9ZLy5GnUZ1VRPd6yaYq gpppoS5sFUCaqhBuJMogdJ IoF4csDmZpCOMIIBBsxZGd ZCBmcmVzaCBsYWJlbGVkIH dpdGggdGhlIHBhdGllbnQn syDoGP2lSCJgL6Tio5Rjv3 4gbnVtYmVyIGFuZCAicGxh mPBuZFQyLNOmE1Won3ClWF FyZSAxMyBtZXRhbGxpYyBn qxV2SUZ6zOCzAFZmXCCqD9 Hcw8SjeIsquHZtTDDepVTl JXAdYsEpkSMzcrIkTO4ceR reNtpsQQ5hCBHgSPlwCAYr HW3jsJOmCWLyazWwTuJfZU LaoQlpJzSzqpR9AUNaLC9q e7LjCOQoMJUpjFT5OFBllH hhdCBtZWFzdXJlIDIuNCB4 FPFrUIF3NXHdJKSsrUOmkt HqfCK1FYYjSSWbTFUzHUAr vF47bdLup8AzKPNmXPDwqz KymTDrPGYcKYKtb8G1SCNq h3C2GZ5fQUVoEORvm9uic3 bfzgkxjF4iA6VqgIQtu25w aXMgaWRlbnRpZmllZDpcbG lkHISkgOjnCRT3AiS1Wudr rMhtFSFQMJwtyO9hJRllrD 7jVIXwS2Bdx7HpvTwebX8n dwPrsIHcjyN7HCcxlx5kID 9rWBToR4Qeu28rUAZyKNFi jANooFT8WJVzQJXDbEsxPM Pkb2QxwNWiAz9rSSwxi2Wl PAQ5IJ1xjiQ2oY0oYT3ecW kuXGxpbmUgXGxpbmUgUGls YXIgQXJndWVsbGVzLCBQQS zbAFWpPRGKK6DoMAgbzEti iW1yJRTsF66vk4FRv8HtSC HvQTrjo2udvCcgc2OekEMr XUbsCEPryCEeRCgjqB8tAr Ubx6ljeLh3RUkuilL1FAYj er3JTglrjU2ySnMrt1yomE y3YLNHSghdsoG9o8icfEvi c6YjfKRvTZ3AHj3= Gross assessment was [facility] performed at ([facility], = 6550) Department of Pathology, [address] [place] [address], [place] [address], [facility] [id number] 05:41:43Surgical Pathology Report Case: [id number] Authorizing Provider: Smith Connors MD Collected: 10/29/2022 03:59 PM Ordering Location: [place] [address] ICU Received: 10/29/2022 04:54 PM Pathologist: Rc Quiñones MD Specimen: Explant, plates and screws explant for ID Explant, removal: - Hardware as described Signing Pathologist Direct Phone Line: [phone] signed by Rc Quiñones MDon 10/31/2022 at 5:41 [id number] frontal lobe abscessA. Explant.Received fresh labeled with the patient's name, accession number and "plates and screws" are 13 metallic hughes, threaded screws that measure 0.3 cm in length by 0.2 cm in diameter, and 3 metallic hughes, fenestrated plates that measure 2.4 x 2.4 x 0.1 cm and have a sparse amount of adherent recinos-red soft tissue. The following inscription isidentified:[id number] gross photograph is taken. No sections are submitted. This case is for gross examination only.ROBERTO CARLOS Choudhary, HT (ASCP)[facility], Department of Pathology, [address] [place] [address], [place] [address], YMDKT METABOLIC [id number] 04:03:08 Test Item Value Reference Range Interpretation Comments SODIUM (BEAKER) 137 meq/L 136-145 (test code = 381) POTASSIUM 3.5 meq/L 3.5-5.1 (BEAKER) (test code = 379) CHLORIDE (BEAKER) 107 meq/L 98-107 (test code = 382) CO2 (BEAKER) 21 meq/L 22-29 L (test code = 355) BLOOD UREA 34 mg/dL 7-21 H NITROGEN (BEAKER) (test code = 354) CREATININE 2.58 mg/dL 0.57-1.25 H (BEAKER) (test code = 358) GLUCOSE RANDOM 192 mg/dL 70-105 H (BEAKER) (test code = 652) CALCIUM (BEAKER) 8.3 mg/dL 8.4-10.2 L (test code = 697) EGFR (BEAKER) 20 Interpretatio n of eGFR (test code = mL/min/1.73 values Stage De scription 1092) sq m Result G1 Rory l or high >=90 G2 Mildly decreased [...] not appl icable for dialysis patien ts Silverware Assembler ID - [id number] 04:01:20 Test Item Value Reference Range Interpretation Comments PHOSPHORUS (BEAKER) (test code = 4.2 mg/dL 2.3-4.7 604) Silverware Assembler ID - [id number] 04:01:19 Test Item Value Reference Range Interpretation Comments MAGNESIUM (BEAKER) (test code = 2.0 mg/dL 1.6-2.6 627) Silverware Assembler ID - RITCHIEOCBC W/PLT COUNT & AUTO [id number] 03:44:27 Test Item Value Reference Range Interpretation Comments WHITE BLOOD CELL COUNT (BEAKER) 14.8 K/ L 3.5-10.5 H (test code = 775) RED BLOOD CELL COUNT (BEAKER) 3.57 M/ L 3.93-5.22 L (test code = 761) HEMOGLOBIN (BEAKER) (test code = 9.4 GM/DL 11.2-15.7 L 410) HEMATOCRIT (BEAKER) (test code = 28.2 % 34.1-44.9 L 411) MEAN CORPUSCULAR VOLUME (BEAKER) 79 fL 79-95 (test code = 753) MEAN CORPUSCULAR HEMOGLOBIN 26.3 pg 25.6-32.2 (BEAKER) (test code = 751) MEAN CORPUSCULAR HEMOGLOBIN CONC 33.3 GM/DL 32.2-35.5 (BEAKER) (test code = 752) RED CELL DISTRIBUTION WIDTH 14.6 % 11.7-14.4 H (BEAKER) (test code = 412) PLATELET COUNT (BEAKER) (test 251 K/CU MM 150-450 code = 756) MEAN PLATELET VOLUME (BEAKER) 8.7 fL 9.4-12.3 L (test code = 754) NUCLEATED RED BLOOD CELLS 0 /100 WBC 0-0 (BEAKER) (test code = 413) NEUTROPHILS RELATIVE PERCENT 81 % (BEAKER) (test code = 429) LYMPHOCYTES RELATIVE PERCENT 9 % (BEAKER) (test code = 430) MONOCYTES RELATIVE PERCENT 7 % (BEAKER) (test code = 431) EOSINOPHILS RELATIVE PERCENT 3 % (BEAKER) (test code = 432) BASOPHILS RELATIVE PERCENT 0 % (BEAKER) (test code = 437) NEUTROPHILS ABSOLUTE COUNT 11.92 K/ L 1.56-6.13 H (BEAKER) (test code = 670) LYMPHOCYTES ABSOLUTE COUNT 1.32 K/ L 1.18-3.74 (BEAKER) (test code = 414) MONOCYTES ABSOLUTE COUNT (BEAKER) 1.04 K/ L 0.24-0.36 H (test code = 415) EOSINOPHILS ABSOLUTE COUNT 0.38 K/ L 0.04-0.36 H ([facility]) (test code = 416) BASOPHILS ABSOLUTE COUNT ([facility]) 0.03 K/ L 0.01-0.08 (test code = 417) IMMATURE GRANULOCYTES-RELATIVE 0.50 % 0.00-1.00 PERCENT ([facility]) (test code = 2801) POCT-GLUCOSE [id number] 22:40:12 Test Item Value Reference Range Interpretation Comments POC-GLUCOSE METER 159 mg/dL 70-110 H : TESTED [facility] 6720 ([facility]) (test code = [facility], 1538) [address]: Silverware Assembler/Techni denzel ID = [id number] for JIE MEDRANO POCT-GLUCOSE [id number] 16:37:47 Test Item Value Reference Range Interpretation Comments POC-GLUCOSE METER 245 mg/dL 70-110 H : Notified RN/MD: ([facility]) (test code = TESTED AT [place] [address] 1538) [facility], [address]: Silverware Assembler/Techni denzel ID = [id number] for LL OYD, TIKEYA POCT-GLUCOSE [id number] 11:36:28 Test Item Value Reference Range Interpretation Comments POC-GLUCOSE METER 204 mg/dL 70-110 H : Notified RN/MD: ([facility]) (test code = TESTED AT [place] [id number] 1538) [facility], [address]: Silverware Assembler/Techni denzel ID = [id number] for LL OYD, TIKEYA POCT-GLUCOSE [id number] 06:55:08 Test Item Value Reference Range Interpretation Comments POC-GLUCOSE METER 200 mg/dL 70-110 H : TESTED [facility] 67[address] ([facility]) (test code = [facility], 1538) [address]: Silverware Assembler/Techni denzel ID = [id number] for JIE MEDRANO VANCOMYCIN LEVEL, [id number] 06:29:16 Test Item Value Reference Range Interpretation Comments VANCOMYCIN RANDOM ([facility]) (test 13.4 ug/mL code = 523) Reference Range: No NormalsOperator ID - [facility] METABOLIC [id number] 05:39:26 Test Item Value Reference Range Interpretation Comments SODIUM (BEAKER) 141 meq/L 136-145 (test code = 381) POTASSIUM 3.6 meq/L 3.5-5.1 (BEAKER) (test code = 379) CHLORIDE (BEAKER) 109 meq/L 98-107 H (test code = 382) CO2 (BEAKER) 20 meq/L 22-29 L (test code = 355) BLOOD UREA 32 mg/dL 7-21 H NITROGEN (BEAKER) (test code = 354) CREATININE 2.41 mg/dL 0.57-1.25 H (BEAKER) (test code = 358) GLUCOSE RANDOM 253 mg/dL 70-105 H (BEAKER) (test code = 652) CALCIUM (BEAKER) 8.2 mg/dL 8.4-10.2 L (test code = 697) EGFR (BEAKER) 22 Interpretatio n of eGFR (test code = mL/min/1.73 values Stage De scription 1092) sq m Result G1 Rory l or high >=90 G2 Mildly decreased [...] not appl icable for dialysis patien ts Silverware Assembler ID - [id number] 05:38:33 Test Item Value Reference Range Interpretation Comments PHOSPHORUS (BEAKER) (test code = 4.9 mg/dL 2.3-4.7 H 604) Silverware Assembler ID - [id number] 05:38:32 Test Item Value Reference Range Interpretation Comments MAGNESIUM (BEAKER) (test code = 2.2 mg/dL 1.6-2.6 627) Silverware Assembler ID - BSCBC W/PLT COUNT & AUTO [id number] 05:07:31 Test Item Value Reference Range Interpretation Comments WHITE BLOOD CELL COUNT (BEAKER) 17.2 K/ L 3.5-10.5 H (test code = 775) RED BLOOD CELL COUNT (BEAKER) 3.63 M/ L 3.93-5.22 L (test code = 761) HEMOGLOBIN (BEAKER) (test code = 9.4 GM/DL 11.2-15.7 L 410) HEMATOCRIT (BEAKER) (test code = 28.8 % 34.1-44.9 L 411) MEAN CORPUSCULAR VOLUME (BEAKER) 79 fL 79-95 (test code = 753) MEAN CORPUSCULAR HEMOGLOBIN 25.9 pg 25.6-32.2 (BEAKER) (test code = 751) MEAN CORPUSCULAR HEMOGLOBIN CONC 32.6 GM/DL 32.2-35.5 (BEAKER) (test code = 752) RED CELL DISTRIBUTION WIDTH 15.2 % 11.7-14.4 H (BEAKER) (test code = 412) PLATELET COUNT (BEAKER) (test 274 K/CU MM 150-450 code = 756) MEAN PLATELET VOLUME (BEAKER) 8.6 fL 9.4-12.3 L (test code = 754) NUCLEATED RED BLOOD CELLS 0 /100 WBC 0-0 (BEAKER) (test code = 413) NEUTROPHILS RELATIVE PERCENT 85 % (BEAKER) (test code = 429) LYMPHOCYTES RELATIVE PERCENT 7 % (BEAKER) (test code = 430) MONOCYTES RELATIVE PERCENT 7 % (BEAKER) (test code = 431) EOSINOPHILS RELATIVE PERCENT 0 % (BEAKER) (test code = 432) BASOPHILS RELATIVE PERCENT 0 % (BEAKER) (test code = 437) NEUTROPHILS ABSOLUTE COUNT 14.68 K/ L 1.56-6.13 H (BEAKER) (test code = 670) LYMPHOCYTES ABSOLUTE COUNT 1.12 K/ L 1.18-3.74 L (BEAKER) (test code = 414) MONOCYTES ABSOLUTE COUNT (BEAKER) 1.28 K/ L 0.24-0.36 H (test code = 415) EOSINOPHILS ABSOLUTE COUNT 0.00 K/ L 0.04-0.36 L (BEAKER) (test code = 416) BASOPHILS ABSOLUTE COUNT (BEAKER) 0.02 K/ L 0.01-0.08 (test code = 417) IMMATURE GRANULOCYTES-RELATIVE 0.60 % 0.00-1.00 PERCENT (BEAKER) (test code = 2807) SPIN/CONCENTRATION [id number] 01:33:37 Test Item Value Reference Range Interpretation Comments Concentration charged (test code = Done 6168) [facility] [id number] 01:33:37 Test Item Value Reference Range Interpretation Comments Concentration charged (test code = Done 2657) [facility] [id number] 01:33:37 Test Item Value Reference Range Interpretation Comments Concentration charged (test code = Done 2657) [facility] [id number] 01:33:37 Test Item Value Reference Range Interpretation Comments Concentration charged (test code = Done 2657) [facility] [id number] 01:33:37 Test Item Value Reference Range Interpretation Comments Concentration charged (test code = Done 7) [facility] [id number] 01:33:37 Test Item Value Reference Range Interpretation Comments CONCENTRATION CHARGED (BEAKER) (test Done code = 2657) SPIN/CONCENTRATION [id number] 01:33:21 Test Item Value Reference Range Interpretation Comments CONCENTRATION CHARGED (BEAKER) (test Done code = 2657) SPIN/CONCENTRATION [id number] 01:33:15 Test Item Value Reference Range Interpretation Comments CONCENTRATION CHARGED (BEAKER) (test Done code = 2657) SPIN/CONCENTRATION [id number] 01:33:09 Test Item Value Reference Range Interpretation Comments CONCENTRATION CHARGED (BEAKER) (test Done code = 2657) SPIN/CONCENTRATION [id number] 01:33:04 Test Item Value Reference Range Interpretation Comments CONCENTRATION CHARGED (BEAKER) (test Done code = 2657) BASIC METABOLIC [id number] 23:51:14 Test Item Value Reference Range Interpretation Comments SODIUM (BEAKER) 142 meq/L 136-145 (test code = 381) POTASSIUM 3.4 meq/L 3.5-5.1 L (BEAKER) (test code = 379) CHLORIDE (BEAKER) 108 meq/L 98-107 H (test code = 382) CO2 (BEAKER) 21 meq/L 22-29 L (test code = 355) BLOOD UREA 32 mg/dL 7-21 H NITROGEN (BEAKER) (test code = 354) CREATININE 2.31 mg/dL 0.57-1.25 H (BEAKER) (test code = 358) GLUCOSE RANDOM 302 mg/dL 70-105 H (BEAKER) (test code = 652) CALCIUM (BEAKER) 8.5 mg/dL 8.4-10.2 (test code = 697) EGFR (BEAKER) 23 Interpretatio n of eGFR (test code = mL/min/1.73 values Stage De scription 1092) sq m Result G1 Rory l or high >=90 G2 Mildly decreased [...] not appl icable for dialysis patien ts Silverware Assembler ID - [id number] 23:47:27 Test Item Value Reference Range Interpretation Comments MAGNESIUM (BEAKER) (test code = 2.2 mg/dL 1.6-2.6 627) Silverware Assembler ID - [id number] 23:47:27 Test Item Value Reference Range Interpretation Comments PHOSPHORUS (BEAKER) (test code = 4.8 mg/dL 2.3-4.7 H 604) Silverware Assembler ID - BSCBC (HEMOGRAM ONLY)2022-10-29 23:25:05 Test Item Value Reference Range Interpretation Comments WHITE BLOOD CELL COUNT (BEAKER) 19.6 K/ L 3.5-10.5 H (test code = 775) RED BLOOD CELL COUNT (BEAKER) 3.83 M/ L 3.93-5.22 L (test code = 761) HEMOGLOBIN (BEAKER) (test code = 10.2 GM/DL 11.2-15.7 L 410) HEMATOCRIT (BEAKER) (test code = 30.3 % 34.1-44.9 L 411) MEAN CORPUSCULAR VOLUME (BEAKER) 79 fL 79-95 (test code = 753) MEAN CORPUSCULAR HEMOGLOBIN 26.6 pg 25.6-32.2 (BEAKER) (test code = 751) MEAN CORPUSCULAR HEMOGLOBIN CONC 33.7 GM/DL 32.2-35.5 (BEAKER) (test code = 752) RED CELL DISTRIBUTION WIDTH 15.1 % 11.7-14.4 H (BEAKER) (test code = 412) PLATELET COUNT (BEAKER) (test 294 K/CU MM 150-450 code = 756) MEAN PLATELET VOLUME (BEAKER) 8.8 fL 9.4-12.3 L (test code = 754) NUCLEATED RED BLOOD CELLS 0 /100 WBC 0-0 (BEAKER) (test code = 413) CT, BRAIN, WITHOUT [id number] 21:55:00 [facility] 1955 Sex: FFINAL REPORT EXAM: CT, BRAIN, WITHOUT CONTRAST INDICATION: Craniotomy, post-op TECHNIQUE: CT images from skull base to vertex without IV contrast. This exam was performed according to the departmental dose optimization program which includes automated exposure control, adjustment of the mA and/or kV according to the patient size, and/or use of an iterative reconstruction technique. CO MPARISON: None. FINDINGS: Parenchyma: Postsurgical changes status post redo right frontal craniotomyfor resection of subjacent collection with moderate volume of pneumocephalus overlying the right frontal convexity. There is shift of midline structures from right to left of 0.6 cm, previously 1.0 cm.No downward herniation. No significant change in hypoattenuation of the right frontal lobe parenchyma posterior to the resection cavity. No evidence of acute infarction or hemorrhage separate from the postsurgical changes. Extra-axial Collection: As above Ventricular System: No hydrocephalus Osseous Structures: Postsurgical changes as above Included Orbits: Normal Paranasal Sinuses: Predominantly clear Tympanomastoid Cavities: Normal Other: None IMPRESSION:Postsurgical changes status post redo rightfrontal craniotomy for resection of right frontal collection with moderate volume of pneumocephalus. There is decreased leftward midline shift now 0.6 cm. Signed: Carolyn Calvert MDReport Verified Date/Time: 10/29/2022 21:55:54 POCT-GLUCOSE [id number] 18:14:59 Test Item Value Reference Range Interpretation Comments POC-GLUCOSE METER 232 mg/dL 70-110 H : TESTED [facility] 6720 (BEAKER) (test code = [facility], 1538) [address]: Silverware Assembler/Techni denzel ID = [id number] for An Carmenza segovia MR, BRAIN, [id number] 14:13:00STEALTHUnlisted Reason for Exam - Click Yes and Enter Reason Below->No [facility] 1955 Sex: FFINAL REPORT MR, BRAIN, WITH \\T\\ WITHOUT CONTRAST INDICATION: Brain mass or lesion Technique: Multiplanar, multisequence MRI images of the brain were obtained before and after demonstration of intravenous contrast. COMPARISON: 09/22/2022 and 09/14/2022 MRI FINDINGS:Postoperative changesfrom right frontal craniotomy related to right frontal mass resection. Compared to the 09/22/2022 MRI,there is new new fluid within the right frontal lobe resection cavity, with new peripheral nodular enhancement and extensive increase in surrounding FLAIR hyperintensity. The area of enhancement measures 7.0 x 4.1 x 4.0 cm (CC X AP X transverse), and extends to the right frontal periventricular white matter. Mild susceptibility noted in the right frontal lobe deep to the craniotomy site.An extra-axial collection deep to the craniotomy site with associated surgical material measures 1.5 cm in thickness.Leftward mass effect in the hemispheric falx has increased. 0.6 cm leftward midline shift at the foramina Leos. No acute ischemia identified. Effacement of the right lateral ventricle anteriorly. No hydrocephalus. A partially empty sella is present. Orbits are within normal limits. No obstructive paranasal sinus disease. Mild T2 hyperintensity in the bilateral mastoid air cells. Additional findings: None. IMPRESSION: 1.Significant interval increase in size and peripheral enhancement of the right frontal lobe resection cavity, along with significantly increased right frontal lobe edema. This mayrepresent tumor recurrence or radiation necrosis. Correlate with clinical history.2.0.6 cm leftward midline shift the foramina Leos with greater mass effect on the anterior interhemispheric falx. Signed: Rodo Hinojosa MDReport Verified Date/Time: 10/29/2022 14:13:17 HEMOGLOBIN [id number] 09:25:26 Test Item Value Reference Range Interpretation Comments HEMOGLOBIN A1C 8.9 % See_Comment H [Automated m essage] ELECTROPHORESIS ([employer]) The system which (test code = 3811) generated this result transmitted ref erence range: <=5.6%. The reference range was not used to int erpret this result as normal/abnormal . "The A1c is measured using a NGSP-certified method. HbA1c value equal to or greater than 6.5% as thediagnosis cutoff for diabetes. An HbA1c value of 5.7- 6.4% indicates increased risk for diabetes (prediabetes)."Silverware Assembler ID - ADMPOCT- GLUCOSE [id number] 07:42:16 Test Item Value Reference Range Interpretation Comments POC-GLUCOSE METER 246 mg/dL 70-110 H : TESTED [facility] 6720 ([employer]) (test code = [facility]ET[place], 1538) [address]: Silverware Assembler/Techni denzel ID = [id number] for Co Carla boyer CT, BRAIN, WITHOUT [id number] 07:22:00Reason for Exam (Free Text) - Addiitonal information for Radiologist->h/o cerebral edema. Left side weakness.[facility] 1955 Sex: FFINAL REPORT CT Head without contrast CLINICAL HISTORY: Unlisted Reason for Exam TECHNIQUE: Contiguous axial CT images through the head without contrast. This exam was performed according to the departmental dose optimization program which includes automated exposure control, adjustment of the mA and/or kV according to the patient size, and/or use of an iterative reconstruction technique. COMPARISON: Outside CT 10/28/2022 FINDINGS: As before, the patient is status post right anterior frontal craniotomy for resection of the underlying extra-axial mass. Extra-axial air-containing material is again seen. Prominent ischemic edema of the right anterior frontal lobe is again seen with mass effect and leftward midline shift grossly unchanged. Compression of the frontal horns of the lateral ventricles is again seen. There is no hydrocephalus. There is atherosclerotic calcification of the intracranial circulation. IMPRESSION: Since 10/28/2022, the postsurgical appearance of the brain is unchanged including mass effect and leftward midline shift. Signed: Ck Crawford MDReport Verified Date/Time: 10/29/2022 07:22:21 POCT-GLUCOSE METER 2022-10-29 07:01:56 Test Item Value Reference Range Interpretation Comments POC-GLUCOSE METER 172 mg/dL 70-110 H : TESTED [facility] 6720 (LU) (test code = [facility] [place], 1538 [address]: Silverware Assembler/Techni denzel ID = [id number] for Carla Penaloza Urinalysis Microscopic [id number] 06:32:26 Test Item Value Reference Range Interpretation Comments RBC, UA (test code = 2 See_Comment [Autom ated message] The 12932-8) system which ge nerated this result transmit tara reference range : /HPF. The reference range was not used to interpr et this result as rory l/abnormal. WBC, UA (test code = 2 See_Comment [Autom ated message] The 5821-4) system which ge nerated this result transmit tara reference range : /HPF. The reference range was not used to interpr et this result as rory l/abnormal. Bacteria, UA (test Rare code = 97867-5) Squam Epithel, UA 1 See_Comment [Automate d message] The (test code = 19067-2) system which generated this result transmit tara reference range : /HPF. The reference range was not used to interpr et this result as rory l/abnormal. [facility] Reflex to Culture 2022-10-29 06:32:26 Test Item Value Reference Range Interpretation Comments Color, UA (test code Yellow = 5778-6) Clarity, UA (test Clear code = 5767-9) Specific [place], UA 1.017 1.001-1.035 (test code = 5811-5) pH, UA (test code = 6.5 5.0-8.0 5803-2) Protein, UA (test >600 mg/dL Negative A code = 03150-4) Glucose, UA (test 70 mg/dL Negative A code = 365) Ketones, UA (test Negative Negative code = 2514-8) Bilirubin, UA (test Negative Negative code = 95686-0) Blood, UA (test code Trace Negative A = 08475-9) Nitrite, UA (test Negative Negative code = 5802-4) Leukocytes, UA (test Negative Negative code = 5799-2) Urobilinogen, UA 0.2 0.2-1.0 (test code = 40180-5) RBC, UA (test code = 2 See_Comment [Autom ated 23233-0) message] The system which generated this result transmit tara reference range : /HPF. The reference range was not used to interpret this result as normal/abnormal . WBC, UA (test code = 2 See_Comment [Autom ated 5821-4) message] The system which generated this result transmit tara reference range : /HPF. The reference range was not used to interpret this result as normal/abnormal . Bacteria, UA (test Rare code = 61496-9) Squam Epithel, UA 1 See_Comment [Automate d (test code = 32869-2) messag e] The system which generated this result transmit tara reference range : /HPF. The reference range was not used to interpret this result as normal/abnormal . Specimen Source (test code = 2795) SONIYA (test code = SONIYA) Silverware Assembler ID - tech Lab Interpretation Abnormal (test code = 45391-6) [facility] [id number] 06:32:26 Test Item Value Reference Range Interpretation Comments RBC, UA (test code = 2 See_Comment [Autom ated message] The 06786-2) system which ge nerated this result transmit tara reference range : /HPF. The reference range was not used to interpr et this result as rory l/abnormal. WBC, UA (test code = 2 See_Comment [Autom ated message] The 5821-4) system which ge nerated this result transmit tara reference range : /HPF. The reference range was not used to interpr et this result as rory l/abnormal. Bacteria, UA (test Rare code = 53913-6) Squam Epithel, UA 1 See_Comment [Automate d message] The (test code = 73376-9) system which generated this result transmit tara reference range : /HPF. The reference range was not used to interpr et this result as rory l/abnormal. [facility] + Reflex to Culture 2022-10-29 06:32:26 Test Item Value Reference Range Interpretation Comments Color, UA (test code Yellow = 5778-6) Clarity, UA (test Clear code = 5767-9) Specific [place], UA 1.017 1.001-1.035 (test code = 5811-5) pH, UA (test code = 6.5 5.0-8.0 5803-2) Protein, UA (test >600 mg/dL Negative A code = 22267-7) Glucose, UA (test 70 mg/dL Negative A code = 365) Ketones, UA (test Negative Negative code = 2514-8) Bilirubin, UA (test Negative Negative code = 89959-3) Blood, UA (test code Trace Negative A = 10726-8) Nitrite, UA (test Negative Negative code = 5802-4) Leukocytes, UA (test Negative Negative code = 5799-2) Urobilinogen, UA 0.2 0.2-1.0 (test code = 41820-6) RBC, UA (test code = 2 See_Comment [Autom ated 54966-5) message] The system which generated this result transmit tara reference range : /HPF. The reference range was not used to interpret this result as normal/abnormal . WBC, UA (test code = 2 See_Comment [Autom ated 5821-4) message] The system which generated this result transmit tara reference range : /HPF. The reference range was not used to interpret this result as normal/abnormal . Bacteria, UA (test Rare code = 24406-4) Squam Epithel, UA 1 See_Comment [Automate d (test code = 07707-0) messag e] The system which generated this result transmit tara reference range : /HPF. The reference range was not used to interpret this result as normal/abnormal . Specimen Source (test code = 2795) SONIYA (test code = SONIYA) Silverware Assembler ID - tech Lab Interpretation Abnormal (test code = 46164-0) [facility] [id number] 06:32:26 Test Item Value Reference Range Interpretation Comments RBC, UA (test code = 2 See_Comment [Autom ated message] The 18255-3) system which ge nerated this result transmit tara reference range : /HPF. The reference range was not used to interpr et this result as rory l/abnormal. WBC, UA (test code = 2 See_Comment [Autom ated message] The 5821-4) system which ge nerated this result transmit tara reference range : /HPF. The reference range was not used to interpr et this result as rory l/abnormal. Bacteria, UA (test Rare code = 41578-2) Squam Epithel, UA 1 See_Comment [Automate d message] The (test code = 31058-8) system which generated this result transmit tara reference range : /HPF. The reference range was not used to interpr et this result as rory l/abnormal. [facility] + Reflex to Culture 2022-10-29 06:32:26 Test Item Value Reference Range Interpretation Comments Color, UA (test code Yellow = 5778-6) Clarity, UA (test Clear code = 5767-9) Specific [place], UA 1.017 1.001-1.035 (test code = 5811-5) pH, UA (test code = 6.5 5.0-8.0 5803-2) Protein, UA (test >600 mg/dL Negative A code = 25178-0) Glucose, UA (test 70 mg/dL Negative A code = 365) Ketones, UA (test Negative Negative code = 2514-8) Bilirubin, UA (test Negative Negative code = 33238-4) Blood, UA (test code Trace Negative A = 43450-5) Nitrite, UA (test Negative Negative code = 5802-4) Leukocytes, UA (test Negative Negative code = 5799-2) Urobilinogen, UA 0.2 0.2-1.0 (test code = 50248-1) RBC, UA (test code = 2 See_Comment [Autom ated 92767-0) message] The system which generated this result transmit tara reference range : /HPF. The reference range was not used to interpret this result as normal/abnormal . WBC, UA (test code = 2 See_Comment [Autom ated 5821-4) message] The system which generated this result transmit tara reference range : /HPF. The reference range was not used to interpret this result as normal/abnormal . Bacteria, UA (test Rare code = 00182-2) Squam Epithel, UA 1 See_Comment [Automate d (test code = 72473-8) messag e] The system which generated this result transmit tara reference range : /HPF. The reference range was not used to interpret this result as normal/abnormal . Specimen Source (test code = 2795) SONIYA (test code = SONIYA) Silverware Assembler ID - tech Lab Interpretation Abnormal (test code = 68251-9) [facility] [id number] 06:32:26 Test Item Value Reference Range Interpretation Comments RBC, UA (test code = 2 See_Comment [Autom ated message] The 83123-7) system which ge nerated this result transmit tara reference range : /HPF. The reference range was not used to interpr et this result as rory l/abnormal. WBC, UA (test code = 2 See_Comment [Autom ated message] The 5821-4) system which ge nerated this result transmit tara reference range : /HPF. The reference range was not used to interpr et this result as rory l/abnormal. Bacteria, UA (test Rare code = 17137-1) Squam Epithel, UA 1 See_Comment [Automate d message] The (test code = 53123-4) system which generated this result transmit tara reference range : /HPF. The reference range was not used to interpr et this result as rory l/abnormal. [facility] Reflex [facility] Culture 2022-10-29 06:32:26 Test Item Value Reference Range Interpretation Comments Color, UA (test code Yellow = 5778-6) Clarity, UA (test Clear code = 5767-9) Specific [place], UA 1.017 1.001-1.035 (test code = 5811-5) pH, UA (test code = 6.5 5.0-8.0 5803-2) Protein, UA (test >600 mg/dL Negative A code = 01662-7) Glucose, UA (test 70 mg/dL Negative A code = 365) Ketones, UA (test Negative Negative code = 2514-8) Bilirubin, UA (test Negative Negative code = 85862-6) Blood, UA (test code Trace Negative A = 87817-6) Nitrite, UA (test Negative Negative code = 5802-4) Leukocytes, UA (test Negative Negative code = 5799-2) Urobilinogen, UA 0.2 0.2-1.0 (test code = 77552-7) RBC, UA (test code = 2 See_Comment [Autom ated 54366-1) message] The system which generated this result transmit tara reference range : /HPF. The reference range was not used to interpret this result as normal/abnormal . WBC, UA (test code = 2 See_Comment [Autom ated 5821-4) message] The system which generated this result transmit tara reference range : /HPF. The reference range was not used to interpret this result as normal/abnormal . Bacteria, UA (test Rare code = 15111-8) Squam Epithel, UA 1 See_Comment [Automate d (test code = 01805-2) messag e] The system which generated this result transmit tara reference range : /HPF. The reference range was not used to interpret this result as normal/abnormal . Specimen Source (test code = 2795) SONIYA (test code = SONIYA) [employer]ware Assembler ID - tech Lab Interpretation Abnormal (test code = 75319-0) [facility] [id number] 06:32:26 Test Item Value Reference Range Interpretation Comments RBC, UA (test code = 2 See_Comment [Autom ated message] The 33899-0) system which ge nerated this result transmit tara reference range : /HPF. The reference range was not used to interpr et this result as rory l/abnormal. WBC, UA (test code = 2 See_Comment [Autom ated message] The 5821-4) system which ge nerated this result transmit tara reference range : /HPF. The reference range was not used to interpr et this result as rory l/abnormal. Bacteria, UA (test Rare code = 82952-4) Squam Epithel, UA 1 See_Comment [Automate d message] The (test code = 61092-1) system which generated this result transmit tara reference range : /HPF. The reference range was not used to interpr et this result as rory l/abnormal. [facility] Reflex to Culture 2022-10-29 06:32:26 Test Item Value Reference Range Interpretation Comments Color, UA (test code Yellow = 5778-6) Clarity, UA (test Clear code = 5767-9) Specific [place], UA 1.017 1.001-1.035 (test code = 5811-5) pH, UA (test code = 6.5 5.0-8.0 5803-2) Protein, UA (test >600 mg/dL Negative A code = 99757-2) Glucose, UA (test 70 mg/dL Negative A code = 365) Ketones, UA (test Negative Negative code = 2514-8) Bilirubin, UA (test Negative Negative code = 85708-6) Blood, UA (test code Trace Negative A = 42802-8) Nitrite, UA (test Negative Negative code = 5802-4) Leukocytes, UA (test Negative Negative code = 5799-2) Urobilinogen, UA 0.2 0.2-1.0 (test code = 47137-4) RBC, UA (test code = 2 See_Comment [Autom ated 09451-9) message] The system which generated this result transmit tara reference range : /HPF. The reference range was not used to interpret this result as normal/abnormal . WBC, UA (test code = 2 See_Comment [Autom ated 5821-4) message] The system which generated this result transmit tara reference range : /HPF. The reference range was not used to interpret this result as normal/abnormal . Bacteria, UA (test Rare code = 20882-7) Squam Epithel, UA 1 See_Comment [Automate d (test code = 31686-7) messag e] The system which generated this result transmit tara reference range : /HPF. The reference range was not used to interpret this result as normal/abnormal . Specimen Source (test code = 2795) SONIYA (test code = SONIYA) [employer]ware Assembler ID - tech Lab Interpretation Abnormal (test code = 95310-1) [facility]LEX URINE [id number] 06:32:26 Test Item Value Reference Range Interpretation Comments COLOR (BEAKER) (test code = 470) Yellow CLARITY (BEAKER) (test code = 469) Clear SPECIFIC GRAVITY UA (BEAKER) (test 1.017 1.001-1.035 code = 468) PH UA (BEAKER) (test code = 467) 6.5 5.0-8.0 PROTEIN UA (BEAKER) (test code = >600 mg/dL Negative A 464) GLUCOSE UA (BEAKER) (test code = 70 mg/dL Negative A 365) KETONES UA (BEAKER) (test code = Negative Negative 371) BILIRUBIN UA (BEAKER) (test code = Negative Negative 462) BLOOD UA (BEAKER) (test code = Trace Negative A 461) NITRITE UA (BEAKER) (test code = Negative Negative 465) LEUKOCYTE ESTERASE UA (BEAKER) Negative Negative (test code = 466) UROBILINOGEN UA (BEAKER) (test 0.2 0.2-1.0 code = 463) RBC UA (BEAKER) (test code = 519) 2 /HPF WBC UA (BEAKER) (test code = 520) 2 /HPF BACTERIA (BEAKER) (test code = Rare 517) SQUAMOUS EPITHELIAL (BEAKER) (test 1 /HPF code = 516) SOURCE(BEAKER) (test code = 2795) [employer] Assembler ID - techURINALYSIS [id number] 06:32:26 Test Item Value Reference Range Interpretation Comments RBC UA (BEAKER) (test code = 519) 2 /HPF WBC UA (BEAKER) (test code = 520) 2 /HPF BACTERIA (BEAKER) (test code = 517) Rare SQUAMOUS EPITHELIAL (BEAKER) (test 1 /HPF code = 516) Urinalysis with Microscopic If [id number] 06:32:25 Test Item Value Reference Range Interpretation Comments Color, UA (test code = Yellow 5778-6) Clarity, UA (test code = Clear 5767-9) Specific [place], UA (test 1.017 1.001-1.035 code = 5811-5) pH, UA (test code = 6.5 5.0-8.0 5803-2) Protein, UA (test code = >600 mg/dL Negative A 95488-1) Glucose, UA (test code = 70 mg/dL Negative A 365) Ketones, UA (test code = Negative Negative 2514-8) Bilirubin, UA (test code = Negative Negative 91445-1) Blood, UA (test code = Trace Negative A 00623-9) Nitrite, UA (test code = Negative Negative 5802-4) Leukocytes, UA (test code Negative Negative = 5799-2) Urobilinogen, UA (test 0.2 0.2-1.0 code = 62499-7) Specimen Source (test code = 2795) SONIYA (test code = SONIYA) Silverware Assembler ID - [auto] Lab Interpretation (test Abnormal code = 33981-0) [facility] If [id number] 06:32:25 Test Item Value Reference Range Interpretation Comments Color, UA (test code = Yellow 5778-6) Clarity, UA (test code = Clear 5767-9) Specific [place], UA (test 1.017 1.001-1.035 code = 5811-5) pH, UA (test code = 6.5 5.0-8.0 5803-2) Protein, UA (test code = >600 mg/dL Negative A 95138-9) Glucose, UA (test code = 70 mg/dL Negative A 365) Ketones, UA (test code = Negative Negative 2514-8) Bilirubin, UA (test code = Negative Negative 40763-2) Blood, UA (test code = Trace Negative A 53559-3) Nitrite, UA (test code = Negative Negative 5802-4) Leukocytes, UA (test code Negative Negative = 5799-2) Urobilinogen, UA (test 0.2 0.2-1.0 code = 60457-1) Specimen Source (test code = 2795) SONIYA (test code = SONIYA) Silverware Assembler ID - [auto] Lab Interpretation (test Abnormal code = 95555-9) [facility] If [id number] 06:32:25 Test Item Value Reference Range Interpretation Comments Color, UA (test code = Yellow 5778-6) Clarity, UA (test code = Clear 5767-9) Specific [place], UA (test 1.017 1.001-1.035 code = 5811-5) pH, UA (test code = 6.5 5.0-8.0 5803-2) Protein, UA (test code = >600 mg/dL Negative A 82034-6) Glucose, UA (test code = 70 mg/dL Negative A 365) Ketones, UA (test code = Negative Negative 2514-8) Bilirubin, UA (test code = Negative Negative 98510-1) Blood, UA (test code = Trace Negative A 84658-2) Nitrite, UA (test code = Negative Negative 5802-4) Leukocytes, UA (test code Negative Negative = 5799-2) Urobilinogen, UA (test 0.2 0.2-1.0 code = 50201-6) Specimen Source (test code = 2795) SONIYA (test code = SONIYA) Silverware Assembler ID - [auto] Lab Interpretation (test Abnormal code = 22630-7) [facility] If [id number] 06:32:25 Test Item Value Reference Range Interpretation Comments Color, UA (test code = Yellow 5778-6) Clarity, UA (test code = Clear 5767-9) Specific [place], UA (test 1.017 1.001-1.035 code = 5811-5) pH, UA (test code = 6.5 5.0-8.0 5803-2) Protein, UA (test code = >600 mg/dL Negative A 20455-4) Glucose, UA (test code = 70 mg/dL Negative A 365) Ketones, UA (test code = Negative Negative 2514-8) Bilirubin, UA (test code = Negative Negative 43082-6) Blood, UA (test code = Trace Negative A 82814-7) Nitrite, UA (test code = Negative Negative 5802-4) Leukocytes, UA (test code Negative Negative = 5799-2) Urobilinogen, UA (test 0.2 0.2-1.0 code = 98637-6) Specimen Source (test code = 2795) SONIYA (test code = SONIYA) Silverware Assembler ID - [auto] Lab Interpretation (test Abnormal code = 65098-4) [facility] If [id number] 06:32:25 Test Item Value Reference Range Interpretation Comments Color, UA (test code = Yellow 5778-6) Clarity, UA (test code = Clear 5767-9) Specific [place], UA (test 1.017 1.001-1.035 code = 5811-5) pH, UA (test code = 6.5 5.0-8.0 5803-2) Protein, UA (test code = >600 mg/dL Negative A 35483-6) Glucose, UA (test code = 70 mg/dL Negative A 365) Ketones, UA (test code = Negative Negative 2514-8) Bilirubin, UA (test code = Negative Negative 36049-0) Blood, UA (test code = Trace Negative A 36014-0) Nitrite, UA (test code = Negative Negative 5802-4) Leukocytes, UA (test code Negative Negative = 5799-2) Urobilinogen, UA (test 0.2 0.2-1.0 code = 34112-3) Specimen Source (test code = 2795) SONIYA (test code = SONIYA) Silverware Assembler ID - [auto] Lab Interpretation (test Abnormal code = 75727-3) [facility] IF [id number] 06:32:25 Test Item Value Reference Range Interpretation Comments COLOR (BEAKER) (test code = 470) Yellow CLARITY (BEAKER) (test code = 469) Clear SPECIFIC GRAVITY UA (BEAKER) (test 1.017 1.001-1.035 code = 468) PH UA (BEAKER) (test code = 467) 6.5 5.0-8.0 PROTEIN UA (BEAKER) (test code = >600 mg/dL Negative A 464) GLUCOSE UA (BEAKER) (test code = 70 mg/dL Negative A 365) KETONES UA (BEAKER) (test code = Negative Negative 371) BILIRUBIN UA (BEAKER) (test code = Negative Negative 462) BLOOD UA (BEAKER) (test code = Trace Negative A 461) NITRITE UA (BEAKER) (test code = Negative Negative 465) LEUKOCYTE ESTERASE UA (BEAKER) Negative Negative (test code = 466) UROBILINOGEN UA (BEAKER) (test 0.2 0.2-1.0 code = 463) SOURCE(BEAKER) (test code = 2795) Silverware Assembler ID - [auto]RAD, CHEST, 1 VIEW, NON [id number] 06:15:00Reason for exam:->cerebral edemaShould this be performed at the bedside?->Yes [facility] 1955 Sex: FFINAL REPORT INDICATION: cerebral edema COMPARISON: None TECHNIQUE: Single frontalview of the chest. FINDINGS: Lungs and pleura: Mild hazy interstitial opacities No effusion.Heart and mediastinum: Normal heart size. Unremarkable mediastinal contours.Osseous structures: No acute abnor mality.Other: None. IMPRESSION: Mild hazy interstitial opacities concerning for interstitial edema. No focal pneumonia. Signed: Chery Delarosaort Verified Date/Time: 10/29/2022 06:15:16 COMPREHENSIVE METABOLIC PANEL 2022-10-29 03:36:04 Test Item Value Reference Range Interpretation Comments TOTAL PROTEIN 6.7 gm/dL 6.0-8.3 (BEAKER) (test code = 770) ALBUMIN (BEAKER) 3.5 g/dL 3.5-5.0 (test code = 1145) ALKALINE 113 U/L 40-150 PHOSPHATASE (BEAKER) (test code = 346) BILIRUBIN TOTAL 0.7 mg/dL 0.2-1.2 (BEAKER) (test code = 377) SODIUM (BEAKER) 142 meq/L 136-145 (test code = 381) POTASSIUM (BEAKER) 3.3 meq/L 3.5-5.1 L (test code = 379) CHLORIDE (BEAKER) 106 meq/L 98-107 (test code = 382) CO2 (BEAKER) (test 26 meq/L 22-29 code = 355) BLOOD UREA 23 mg/dL 7-21 H NITROGEN (BEAKER) (test code = 354) CREATININE 2.30 mg/dL 0.57-1.25 H (BEAKER) (test code = 358) GLUCOSE RANDOM 164 mg/dL 70-105 H (BEAKER) (test code = 652) CALCIUM (BEAKER) 9.3 mg/dL 8.4-10.2 (test code = 697) AST (SGOT) 23 U/L 5-34 (BEAKER) (test code = 353) ALT (SGPT) 30 U/L 6-55 (BEAKER) (test code = 347) EGFR (BEAKER) 23 Interpretatio n of eGFR (test code = 1092) mL/min/1.[address] age Description sq m Result G1 Rory l or high >=90 G2 Mildly decreased [...] not appl icable for dialysis patien ts Silverware Assembler ID - PRASHANTH [id number] 03:35:28 Test Item Value Reference Range Interpretation Comments MAGNESIUM (BEAKER) (test code = 2.0 mg/dL 1.6-2.6 627) Silverware Assembler ID - PRASHANTH [id number] 03:35:28 Test Item Value Reference Range Interpretation Comments PHOSPHORUS (BEAKER) (test code = 3.8 mg/dL 2.3-4.7 604) Silverware Assembler ID - PRASHANTH GCREATINE KINASE (CK)2022-10-29 03:35:28 Test Item Value Reference Range Interpretation Comments CREATINE KINASE TOTAL ([employer]AKER) (test 51 U/L 29-200 code = 380) Silverware Assembler ID - PRASHANTH GVITAMIN [id number] 03:32:58 Test Item Value Reference Range Interpretation Comments VITAMIN B12 (BEAKER) (test code = > pg/mL 213-816 H 774) Silverware Assembler ID - PRASHANTH [id number] 03:32:48 Test Item Value Reference Range Interpretation Comments PROCALCITONIN (BEAKER) (test code = < ng/mL <0.05 3036) SEPSIS RISK (ng/mL)Low: 0.05-0.50Intermediate: 0.51-2.00High: >=2.01TSH/FREE T4 IF [id number] 03:32:03 Test Item Value Reference Range Interpretation Comments THYROID STIMULATING HORMONE 0.751 uIU/mL 0.350-4.940 (BEAKER) (test code = 772) Silverware Assembler ID - PRASHANTH GHIGH SENSITIVITY TROPONIN [id number] 03:10:43 Test Item Value Reference Range Interpretation Comments HIGH SENSITIVITY TROPONIN I (test 13 pg/ml <=17 code = 1216238) Silverware Assembler ID - PRASHANTH GThe PHOTOGRAPHIC LABORATORY TECHNICIAN STAT High Sensitivity Troponin-I results should be used in conjunction with other diagnostic information such as ECG, clinical observations and information, and patient symptoms to aid in the diagnosis of [place].B-TYPE NATRIURETIC FACTOR (BNP)2022-10-29 03:10:42 Test Item Value Reference Range Interpretation Comments B-TYPE NATRIURETIC PEPTIDE (BEAKER) 40 pg/mL 0-100 (test code = 700) Silverware Assembler ID Saira ALFORD [id number] 02:59:19 Test Item Value Reference Range Interpretation Comments PARTIAL THROMBOPLASTIN TIME 27.2 seconds 22.5-36.0 (BEAKER) (test code = 760) PROTHROMBIN TIME/[id number] 02:58:41 Test Item Value Reference Range Interpretation Comments PROTIME (BEAKER) (test code = 14.1 seconds 11.9-14.2 759) INR (BEAKER) (test code = 370) 1.15 <=5.90 RECOMMENDED COUMADIN/WARFARIN INR THERAPY RANGESSTANDARD DOSE: 2.0 - 3.0 Includes: PROPHYLAXIS for venous thrombosis, systemic embolization; TREATMENT for venous thrombosis and/or pulmonary embolus.HIGH RISK: Target INR is 2.5-3.5 for patients with mechanical heart valves.LACTIC ACID, [id number] 02:52:38 Test Item Value Reference Range Interpretation Comments LACTATE BLOOD VENOUS (2) (BEAKER) 0.96 mmol/L 0.50-2.20 (test code = 2872) Silverware Assembler ID Saira ALFORD GCBC W/PLT COUNT & AUTO [id number] 02:49:50 Test Item Value Reference Range Interpretation Comments WHITE BLOOD CELL COUNT (BEAKER) 12.0 K/ L 3.5-10.5 H (test code = 775) RED BLOOD CELL COUNT (BEAKER) 4.11 M/ L 3.93-5.22 (test code = 761) HEMOGLOBIN (BEAKER) (test code = 11.0 GM/DL 11.2-15.7 L 410) HEMATOCRIT (BEAKER) (test code = 32.6 % 34.1-44.9 L 411) MEAN CORPUSCULAR VOLUME (BEAKER) 79 fL 79-95 (test code = 753) MEAN CORPUSCULAR HEMOGLOBIN 26.8 pg 25.6-32.2 (BEAKER) (test code = 751) MEAN CORPUSCULAR HEMOGLOBIN CONC 33.7 GM/DL 32.2-35.5 (BEAKER) (test code = 752) RED CELL DISTRIBUTION WIDTH 14.7 % 11.7-14.4 H (BEAKER) (test code = 412) PLATELET COUNT (BEAKER) (test 235 K/CU MM 150-450 code = 756) MEAN PLATELET VOLUME (BEAKER) 9.1 fL 9.4-12.3 L (test code = 754) NUCLEATED RED BLOOD CELLS 0 /100 WBC 0-0 (BEAKER) (test code = 413) NEUTROPHILS RELATIVE PERCENT 85 % (BEAKER) (test code = 429) LYMPHOCYTES RELATIVE PERCENT 11 % (BEAKER) (test code = 430) MONOCYTES RELATIVE PERCENT 2 % (BEAKER) (test code = 431) EOSINOPHILS RELATIVE PERCENT 0 % (BEAKER) (test code = 432) BASOPHILS RELATIVE PERCENT 0 % (BEAKER) (test code = 437) NEUTROPHILS ABSOLUTE COUNT 10.23 K/ L 1.56-6.13 H (BEAKER) (test code = 670) LYMPHOCYTES ABSOLUTE COUNT 1.34 K/ L 1.18-3.74 (BEAKER) (test code = 414) MONOCYTES ABSOLUTE COUNT (BEAKER) 0.27 K/ L 0.24-0.36 (test code = 415) EOSINOPHILS ABSOLUTE COUNT 0.04 K/ L 0.04-0.36 (BEAKER) (test code = 416) BASOPHILS ABSOLUTE COUNT (BEAKER) 0.01 K/ L 0.01-0.08 (test code = 417) IMMATURE GRANULOCYTES-RELATIVE 0.70 % 0.00-1.00 PERCENT (BEAKER) (test code = 2801) BLOOD GAS, [id number] 02:36:52 Test Item Value Reference Range Interpretation Comments PH VENOUS (BEAKER) (test code = 7.37 7.32-7.42 701) PCO2 VENOUS (BEAKER) (test code = 51 mm Hg 41-51 755) PO2 VENOUS (BEAKER) (test code = 50 mm Hg 25-40 H 702) O2 SATURATION VENOUS (BEAKER) 83.8 % 40.0-70.0 H (test code = 703) HCO3 VENOUS (BEAKER) (test code = 29 mmol/L 21-29 705) BASE EXCESS VENOUS (BEAKER) (test 2.8 mmol/L -2.0-3.0 code = 704) PATIENT TEMPERATURE (BEAKER) (test 37.0 code = 1818) Tissue [id number] 09:37:47 Test Item Value Reference Range Interpretation Comments Case Report (test code Surgical Pathology = 104) Report Case: [id number] Authorizing Provider: Smith Connors MD Collected: 09/21/2022 11:03 AM Ordering Location: [address] Received: 09/23/2022 11:19 AM Service Pathologist: Rc Quiñones MD Specimen: Brain, Right, Right Frontal Tumor ADDENDUM (test code = [id number] 3381) Mdj0zza1FhgXYthWChICbz xHLmptWlgi86wWR4fC13KR 9pRPOpZfA5JQRvyhZ4Wbw4 LQNzHKLhyPWeZ190y5xty0 ucjoPuqOV1cQwpBWGfmgon IeN5ZImcEBOqucpfMHw1WJ ggDNYzjOX4MPOqrLCzB0Zb AIBhMD5ttrv8HZE4AFmjKO DyKfZ4FHHnfBPrEOZjtGrv SEyud743XCW8YoZbFJWnyr SwbFnolV0cPfmyxmJeQCGX YWNECHWCESWLFQuNN0NLGk pccGFyXGIwIEJyYWluLCBy bKewlMOypd4uuOQwTBM3sJ 1cIZUczHIkb3xpbyuceANg VRReRjTpMCZOPZ3dprdzf1 1hFBHLRsQcA9qLCMonJDFn IDJccGFyXHBhclxiIENPTU 8ONvQhqBXeKIEiJQHhECo6 rQ8mUBysk1W9FIxfseTjpM RuIc8uyYTkCZNdADXjpcVh kdAqZJRuWEYgxEPHBC2FRA 8enXfhgpmfn8bdlxvuxXPn RS9nVJuzV1NMTvDUCAliWH PVNGXVWpJDgsCvxoklMS9m ZUIqRpLrXv8nyf2htPh3kT VzXHBhciAtIFxpIFRFUlRc uDPcADCdp21maUJfMK67yV S1hW1oGoBUx6KhVOS7DZA5 ZWRccGFyXHBhciBQbGVhc2 UxcrAbGFTnmV6ofJukAJ5s g5udzr8nhLYxKHWjdG9mmA Psz9IfLRW2SBubYbkoGVFg cGFyfQ== DIAGNOSIS (test code = r9szqEMvKEQjf6pdWQIaaN 3220) FuZzEwMzNcZnRuYmpcdWMx IHtccnRmMVxlcGljOTYwMl oyqdZzEZKvpXZaW6Dccmre XQcbVM5nOX6xiEflzKHqsP TvRAVaUrUaz3dhj815yKQm r7tqQVIHkatdtZs4mRkjU0 1dv3R9YlzxI73xfXYjWND3 ZJBeLTYutSIlYWUxXVA8ZU BmqYLaM7clMPZgCU3ydxrg FFddPCpmMDAwiSF7QTTpaE VwQ7JnFSRfOHenJKAuqyx6 GpRqRq4xhWLlmHsgQZbcUE JkXHBsYWluXGZzMjAgQnJh cM9xBRNxX6m1FXYva654RW yjlPKxp2YfMHL2P0dbyM2p FpnwWGTeqRDwABCbRW4ksm juZ2wryDIbSAbvh9RdpT5y tTFfxHo6WTKCPsOYNE2pO8 GzXGCrSepdo0MqQRQjfW8u bnRccGFyfXtccnRmMVxzc3 JtYPxiQPDcYK5egImgTPLw PF9lWPRdH6bmdD5lznz0Ww VnOJImRiK6EWGlybX2Rqe7 ETIrMCtep7eut2GxREIbSF p9uCcaHyNpCGVsa3hhnsKw ZmNoYXJzZXQwIEFyaWFsO3 58u5xnu0nbezMtzAB5DJXf TKT8AHixagYdrmF5ZVgolA JnQhW9NEyxdzFvGXepjwGm eiPwXux4LZNaN438YWQ0zV rko8kiVIP3DDSzXSBrKeAl Je9yuOXdH585HLAkHJEQUV NhoWl2PFIlxiVgjpLxnHWK v018I546i7fnPSJjqoGwaX vWcdbtu0xtB619BZFtyXLe miZoPpCmDBUymSTozHT9XQ LeJB4tnafrVPeqJRhaEZYg ubB8XMOskTNeV2FlYBOhVU 8goxujYSU5AKwkFWUoMUJ5 RiHtGVDbs6Jleyc0CqUtgt 4snw27AGG0q7ZufGsnLUN6 UGY0AaAnQw5fcLYgAUIvCI 2sYaSsfTIkBNUzsx29dHhl DPahUWZ5MZOpggQza4Pxo8 fdUiDphpMkX7mtT7DqCHMq NCUqRCAgIkGyjrKkd4Ick5 ExkWPftZx1x2euBNGxFFPr lXkrt7edYNY7HRSelPBmC8 slxC2pWICrUP8rdkqwo2ar YFdsMVnmWAPomNR3xoV1BI NuxFErA7XcfA1rVDJdXVnh USLwyau4FePrOd4zpTNrbZ cyMFxzYmtwYWdlXHBnbmNv bnRccGduZGVjXHBsYWluXH BsYWluXGYwXGZzMjRccWxc bGFuZzEwMzNcaGljaFxmMV byUfLgSDJkENauO9rpFjTp LeKmMby7FEHxjZFqJHIqBj o2PTAeeWTxFLCTfGoyzG9l LOOfbOacfL5eqKB2RGRbvs YvoPSTmX1dMTMBaV2nPzG2 GBXaIuk3MTT6AiLeiKJgcB 0= COMMENT (test code = q4ggySCjYENjdRW6PiSjUO 3359) Tpl1esv8OsrHTbxHBhTUob iKLywqPhjb09cEL8bK50GW 9pDJFdKuK7YRKywgR7Aes3 AVLwGNCcaTEcC548d3cil2 tpauLfrKX7hJiaXXYbfzgf VnT6LLsaTQKsvxsvRTo2KP ryKNNovIP8GPQezEPaR8Ln FFSeWZ0qufd7THC2MVqfVV VlCiO2JGWgbLFkGDXbrSqi FLmmi274MDQ2QsDjQDHyjo BpxFohjL7eRxOxAXROUKT9 oJ0xgjYnqY82QMEorPVsrU 1gj9TpWMepBHvqruWtaAqg b81xy2f1gTPrmYepvQgboA 2zfpKze9AhDC8zxV07aSWq JGS6qWDdyGtwPOOsuUl8o4 GvopBtXDOmaRfzhL3vx9yu ciBmaWVsZCkuICBUaGVyZS SqlxJynJPpdpEqrFa3xDUg oHW0WQMntIYhuIEjEPxzAA MkOH7lIJpbb4xeVQWhlywm FSLpyRl2BEN3gJCdXCDvdw ZkWxOmrAQmyfEtQu7goAAj NwEfyJ7psHHdQH59jeBvPP Lzg3Leby7tND1hPBIzJjbt bRUsueZfmZMuwk6igDPhUA 8slUHxbbHfDQAtGrPwVR8s iU4coIjzdP2rjSJabBSedF PxrGRbefKfFSBhphSldt5s RBH1gODcNPKppOQtwZGiFP IhLUCntbQfu0brIXCrbS01 HpulBHOnBPMFSPJ8CUTxrB UayHFvb1IlkWo6GVjwSWGb LSBHRkFQOiBObyBicmFpbi CyraEia7garuhlWNHeJBHQ lNZ1SpCGns5iwVIdvyP7vE RsJOcqXIU8MA5jCVqwMVZn ABM9KC1eftKlvIYjUIfmrS dlgJbqkyHeepG5PMPlT3Sd bHMpXHBhclxwYXIgVGhlIG 21XIRhlVofGndeVDbyR2Xp KDFsWI2mt5XzJ45ez3sdlX DetSZ1zAOmPYOjdKQixA6j nV0fGQbcjRbmiE7pt3ckL7 YrqOaqI67VZDsIMwZwaoHc ZSAyLiAgVGhlcmUgaXMgZm 5dUObeoktoZkZipSCoBH6d TOPhlJnvoHVhiQQpCFX5tF Vnam7dEPtdDLINS91fHVpz MCAgRklTSCBhbmQgXGkgVE ZUWTbfRADihOLjiD70DPGj jUW4IHSzq45vYB1jgEpdwY Lgu1vpfCHnCOMoDUVuu6Md LBFzNVYhXBP0sZNtddZlzD g3JZJrUHFvjG4oyHHasvXd kN0bUKfcaIkaFvMsxvCul0 B7FOJrnC5fYW3sUPKlEN7v pQ8lMKIbnyinUKKtPkwoS0 wzHEFheYBwLWNbOKL8INHt FCH3cY2lWITwmYk7rINloW T9QUNqvrXlGEFxwFjiypYc KYIvN0hqiUTdhPWdjIMprB VzLlxwYXJccGFyZFxwYXJ9 CPT Code(s) (test code l6xglCCjCWJbuPV8CqNySN = 3353) Hcf2ddi2AhrBIzxBEpOYll eXSunyDqvk11oUO4yJ54GD 9yOOVfJnF7JHWptoB5Ocy8 BLFsJFFksGHiB623n6moz8 fsulCxoJE1aFroDSMxyebe QqI4GAxwFFRzucxfCBx7OW ckGBEngYP7ZODkfTNcI9Rw IPWnKD9wfyg2GMF5OXokDU MkVbN3TXUsmPPoZIBrzBel QGsuu786PWQ7RbLtXZDjjd JxzOkblD2bRxLkUND0UEZa NwzlTPjrFBOiYOt8NzZuXI Z4CFJ9JQowAKP4 CLINICAL HISTORY (test e3gfwXBmKYOkeTJ8XkLeYK code = 3356) Tsq7gok3EosRSynXDeVVcs dRQwfpOqnd75mPZ3gC76QH 6qYGRzIuJ7HSLblbO3Rby9 GOEfVUFbnFSuZ503g5gul7 onfwWkhSZ7sQmjXQYmraif OyO8SRrfKJBrqqdmHBv7WO xyCVOiqYQ5RVCbgNHdE0La OSPpPZ1rlji6HCV8QMnuLL ArMjX0OZKuiOUkUFTgeFhp KQmbp309ESI5QdBrTVPrei KbyOtytG3qFjTjRTAHvHkn bIZgdd7cpVSzBSbuHaLrvT CdsE6iDGMqtt1= GROSS DESCRIPTION (test o5bdxVOyJNFeuXUFOHCdD3 code = [id number]) zjybOsCARcuNEcI7Ptrooy YFadYA3cXG7tfOxgvBXazQ MjLT2DMYNkGkYzTFWscNRg luKjPjUkSUWrfSKdrYQ4HZ FpXS7shtqjHDnfYRyxPSRc xmT1UFTfxWSzT4KwPCJmXR 7flkgfTUY9IUmxnU7sanDJ VgniQk5bxGJfaQztEtAlRb NoYXJzZXQwXGZuaWwgQXJp UUu9kG8SQuphIHU4EQGCLm gdSXWcUZ3Eh8utREKyuHPj FWX1ZWzjiGOsPVNnNTZwRS m3TSZgMUexaMZmKG4auUwa BftkpAtjf2GhfEJhZKpsYF MxQDNdHOdmXCOzAZ5LEuAp SUMdWOi7OdDmKIe6EQa2IF 3FFkUfJCKqAAi8Ghv8DIJu XRr6GGgqXZ6PCWQ5IJexYJ e0CWV1HOR5FSGoGQHkZnIt XGYgQXJpYWwgXFxmbCBcXG 5jfVxwbGFpbiBBLiBCcmFp biwgUmlnaHQuXHBhciANCl xlcGljTmVzdERvYzEgDQpc bHRycGFyXGxpbjBccmluMC ANClxsdHJjaFxmczIwIFJl O0EffxHpBNigWZUqbr4wnO luIGxhYmVsZWQgdGhlIHBh mRqpfzToiqApQR1dKQDiH6 Yzn2Bad60rgrJpCmXnGLPh ZCAicmlnaHQgZnJvbnRhbC R7sH6qxxOxdFYnARC7ErSz sTE7VxUcuZEeCjTzP05bHP owfnMzTEEsGJ3uRHMuhd7g sB2sDPHwNfUihYmnj1ZpWc PyKaUwppUjTV73QAHuxaWp h7DbrQznmtKcSRNyYGG2Qn 4znKAmDOLoegJOYL7OTFBw XGxpbmUgXGxpbmUgUGlsYX IgQXJndWVsbGVzLCBQQSwg QSEbREELZ6IdCOzykZzraX 0wSFTsS85pb6JIp7ZaILMr PJshv2dmcLvgu9GpfOMdNU pwTUDseBErTBnxbR9yRsQj n0bumFx0SCqpoiB7RTGtrc 0FVrivbS1eNfLir4hsbFb7 ASMTLwgjlsW7z3xcfUfjn0 MjuYTsJN3JEg1= MICROSCOPIC DESCRIPTION u6osiSBrNPKqfKM3JbSmGH (test code = 3371) Pma9zym6LqmPSspAZkBVhj uTVkajNglx71hVL7rE07RI 2qRJFlZrO1PAJpziW5Xyq4 APKlGPTgbQJkE846q9txb4 pltbAbmAG4eRmmESAkibwr KzE3WRfxDTNfnxbnQPw8DM lxVLEvxBE6JFRznWYeE4Iu MUNoHN6wkde9VBD8SKseXY TrEeX6AXOryWLwYSJnpGgj FKfgg104OOW3WrEdLZXfhl TaiAarrW3hKbTsYLYBAPAq k8OzSMHqrMYjyK== SPECIAL STUDIES (test l1icaBYyWTOik2dlEGYrcM code = 3376) FuZzEwMzNcZnRuYmpcdWMx SBwuglImHAypo9WuE0LmBg AwMFxhbnNpXGRlZmxhbmcx VPBwLJZ7sxKyHTLvZOqoXT ScHBloFw6xvWSmbKyrBkPb MNFlg7bxthSVpfdxeKt8p3 poKGXaAgF6sVCbLCnzJ2yb kgFapISiG9HzcLAgmAe0t9 alXiChVyZ1rAPbOXyiA5oh dhCzdFSzORUkRBx7gS19KU WduN3mfVMuGSleerGkKaI7 FJnzAOJnGeY1JGChzKQwBK XyS5cmLCSvFDwnWALdKQjw qZAbTEB1fJlua7A8wODvzQ PhsNpfGcLsRmTrUvPLz7Vl MKw2aZqjN4GcGORmZlL2pS QgUGFyYWdyYXBoIEZvbnQ7 uRplvmNes62zzDEoAZZkWY LaAaBfjUlgXFQxWNRHw3Pg wSdwVXM2wWf6nPaqQslcIH R1Viq2KS7bdi34azx5bRse FAAtswpiQlT6DIewIYUtzq owWJz8UKyoNZFnmHJ5TGVq nEHsC2TgUAImEO8zxss9AX F8WRcwSVDkTpY2SBQmxFSh OVCosQdpIOdjj701HED3Rq VxGX3eW7Jyx0V3jM3qeFQa RXUtiESeTrJlKXGwxw2bqK ZiTSzyo9IbCUS8daS8hSRk lQChFRUhNV46Fbthk7VmKu lou0GxK13chYV8ESnrf2xl LB6eFeZ8shLvCMrca8elyC 1qGlC3YBmwAK2qUY6vPEKw cW8eyuoeDHEhOzJkykqaXX OufDfmjyDjGu0mgLfiEGY6 VFixD6ukuI5pNtP2LSbhC0 uklT6fSNk8GOglyAK1DCWt oS4oLI3objlux4jlWTtqMQ eqBAVdvkE2gvN6AFGozHWe T3EwbK5jWNUcCS7adwaco6 kaIRO5VDrfMVQaQHV7SkBc KCMzg6Wfkmk4MvSfv1AyvG JbKPoxD07nt498GVRptjOi M0oedHHewseeaSEakppuKC znotH5WXHxQBMnSIjrMBIg XGZzMjJcbGFuZzEwMzNcaG ljaFxmMVxkYmNoXGYxXGxv F3haUuFkW4SfPCMoVeZmZN raQQkijRRapUWcyAB5aV0a QM0zQBFinXOaC9RcMGBavk AfxPGiQDS9lWOzeFLvSX0t PCghtSBdz6laf0VaZ8jbyJ ohvOD1MJ4oOZAbDJUdFHyh c1KreW5cGjsvyCItfawnNL xmczIyXGxhbmcxMDMzXGhp S9ezSkBePACpvKbqCJeyb3 NoXGYxXGNmMlxmczIyXGx0 cmNoXHBhclxwYXJccGxhaW 8bLhTgMlYmQhnvAO9jUDWn Q6hlkRJvGUJiBQBlJ3ieMj PcaQ4kxHkbJLsoSqRmZuBa RbJCn460sk1lHMWcnDTngg RLvKMcwQ9vTCrbHLhuPUws aCUkDOlqd8ufAFHwi2v2bT KmFSFoaoBny8dxZUpoekVj LSEvlVGckMZbDMAul38yDR vepScuiXarTSKim7SuzAyu p5OfOuToPHzsf1RqI93mpR JvbCBzbGlkZXMgcnVuIGFs c65vu2bcCCOrMmS7eEMdcR J2pAIwlIMgc2WpoIajFSOk s4maAWJimz8hlayzdVFrh9 NdzX3ykedjPWkniBChqcIi TLUml5u2mFJoZSTlDYDjRZ eukLu9AXWuz622dd3sosJ1 kSIwAKE3VQedPIWgZZWhav UgZXZhbHVhdGVkXHBsYWlu XGYxXGZzMjJcbGFuZzEwMz NcaGljaFxmMVxkYmNoXGYx USfvG0oxGiEdG9YjCVOpKh JwfQVaB3gscQEfPSWmVIzj XGYxXGZzMjJcbGFuZzEwMz NcaGljaFxmMVxkYmNoXGYx CCwcZ3qgLaDoC2WyDQEcMp IgIFxwbGFpblxmMVxmczIy ETaumeboVKGzABwuN9ccYz GbJXChpLydNYjku8PkEGJr WARsRbsqbyRxNQi5lhTiRA BhclxwbGFpblxmMVxmczIy GKmodrniTVZpEUceL8wyQp JiUDXnuBozFDvmw8NdBRId XGNmMlxmczIyIEltbXVub2 puc0IxE1gctNnelBO3ZRHv O9kpcMReoYG6FJO7gG5rSC uhtwCxSRDhk2KtUEQnATOg FlT7dF2qVXO5CfXHeHaxUZ BsYWluXGYxXGZzMjJcbGFu ZzEwMzNcaGljaFxmMVxkYm MqJSGmDUfaK1xaNjBpQ8Aq NBQiAyJybWxoAFusUFt8Xu xwbGFpblxmMVxmczIyXGxh aoxwZBScSGqwP0soQoWuID JtkKkxXNrty9HuVAAtLEOq MlxmczIyIHMgTWVkaWNhbC XEJH86NQAaHKHonZuutX0j yIEFFTYoowK0k5N6GPiaRE MyXUl7OAwuxgXmIBInjV8o PLKbKZ2qIEi3deKlAKMhm4 OeDB6qZPMuuKTfWWB7ZHRw g0BqR2Svp0CfWMApYORevk 2naoMxUoRFbCHtIHQfqv08 LJRuKK7uR9ndTTRoAJBwvk XhlKNpv7DtOCKzjST4ySHc OP4YKsRZc21iUJWoONJBna MaQOIuwZpsbMH8doT3gK7z LiBUaGUgRkRBIGhhcyBkZX Kgac8rnvXmPWOtMSGdv4Jc eSMblUHovpYfM1Cwh9TfQV Elal46GDgopHOetw03LG1p T6Fyy0TubR8kFVobYYUwf2 RvfDYzuUEwSUXsw1WoT9om urqsSGtrlRKcoI5wZJAxGP g1HEKkw4OoXQVtg8QaCzDi mlEnPGErMWLsZQBmlY03VL M3zIuhiHgxxtRhCC6rNBIz rcUgEOAvKDCifF8yOCjtzp LdOYIwyzU3b0R5OUbyWVRu bzFpVbvpCWS3cjSgiuI5rU BgC2zlwanrZDmfAOHey2Qr mX9hoXZXbGHso1XtiWIkqA BKaNItEO0wbbOcKT1vZRX0 ODggKENMSUEtODgpIGFzIH D2YDcgOgduKNC2njErGWAp z0FfLYfbH7dfP94kkJgbkK z9nQPbgGycoHXiuSZkOFIy hnH4c6G4JIBdw3PhxaleNO BsYWluXGYyXGZzMjJcbGFu ZzEwMzNcaGljaFxmMlxkYm LkGCCwBBziB0brPtZxBxKw EogxROL4jM== Gross assessment was [facility] performed at ([facility]ly [facility], = 2777) Department of Pathology, [address] [place] [address], Technical component was [facility] performed at ([facility], = 2778) Department of Pathology, [address] [place] [address], Professional component [facility] was performed at ([facility], code = 2779) Department of Pathology, [address] [place] [address], [id number] 09:37:47 Test Item Value Reference Range Interpretation Comments Case Report (test code Surgical Pathology = 104) Report Case: [id number] Authorizing Provider: Smith Connors MD Collected: 09/21/2022 11:03 AM Ordering Location: [address] Received: 09/23/2022 11:19 AM Service Pathologist: Rc Quiñones MD Specimen: Brain, Right, Right Frontal Tumor ADDENDUM (test code = [id number] 3381) Lek6zyl5FgfYVecALqGMeh bOGlfzRlkf82pUR6cH15SN 5zVAGwOzJ5CMZshrV2Awb3 VRBwUDOdzPMcE776k3gmx6 dbpgBblLI3mWqyBOCkqrhq RcL0OOhoEAOxcymqFOd8BV bhTZJokKG8PERhuJKnN6Dx YYCwHD2aolq1AHZ0WQhaAF NkKwZ4MAHihLWlQWRrhUxe LPfud046GGY8TuVqWLXclb IzyCydoO3nIeagllDfCERG QUAFTEFJYPUNNVoCR8EBMc pccGFyXGIwIEJyYWluLCBy oKwysCTmfo3gdBHpZJQ5yS 3nCPFqqLTfi4qyxlgthAQe WKSmUrCkCJCQDD1noruue1 5kJVQNYuCsN8yVNDjnBLFt IDJccGFyXHBhclxiIENPTU 2UJyBixJUlPOLrUZIoEIl1 cE7wNJysf7D8REjyxwXcvA WeJr7swFRkUXLlNUQcaeUk olVzPLVuLDUvgMKSWN6VJX 6llRklambmw0uxbnqjqIOd XO7cEXhuP1GMCfBRUWwyJK LPHFZPVhWIuyLyxrqyPJ7u IVBoUnLgQj1kat9mbIl1yF VzXHBhciAtIFxpIFRFUlRc lJHmIQRou07rfTJnHL86rQ F6tZ6uDzRWb9ZsWHY7XYI1 ZWRccGFyXHBhciBQbGVhc2 MfokNpSYRduW2ecYgbKG8m i8oxks0csFHqQCOpyL8ybJ Jgp4ClMUP0SCxoLfgjFAZm cGFyfQ== DIAGNOSIS (test code = w0svcKZcROIdl4nsEOLcsP 3220) FuZzEwMzNcZnRuYmpcdWMx IHtccnRmMVxlcGljOTYwMl xycnFcQXKidOGxL6Hsvafn VVbpVO8xCH7wvTdvhOAgiN NfMDLpJiZrm1eab428tMRl b6zuGAIPnmqmzAh1lPbdY5 5vc6L4ZykcS31igEPePRQ4 RMRzRZThiZBxDWEmEUI6XG ZbpSQwA5vpINMkDJ3ctdte XThhFXddFIJtoTZ0LBXufV PdA8SoSPDxGGkeJSBbtez9 VuXmTt5ghKBxzXpmBMnqRV JkXHBsYWluXGZzMjAgQnJh yF5fGGXtH4w7KBKwv828TO bcoXJfl0QmMCV4I1gyzP2v KnevTEJhpIItCAXhWS8nay gyN7odeVAwXNdfi3LfbW6j qTTydXi1LMYDIbOKVU9aI8 QvKCGoBssks6JvBNFddE1y bnRccGFyfXtccnRmMVxzc3 FiZNjwMUWmBP0jcWvvXJIv JV4uUBBfR9tsrZ2pphk8Wq VuCZNtTjM3NUAzyzD4Mjo2 FZYnRAsoa9umg9BmOMLnKY p3nLcpNpGiGUPdi1lcrqIs ZmNoYXJzZXQwIEFyaWFsO3 28k9vlb0eawlYsfXK6WGWk EYT2RGldjiVcloF3IWnmdB AuYyM5UVggvtIzRVapbkNu ljRzTxu2WDMrE432MPO9vF bcs2rhWHZ8DQJeQPLaSqId Rj6xiPAeA883WPDhNQWGVY QiiOo4CJSoquQhjcLmfBEC p809J406d6ykJFXgpdIdoH fHszsog2ezJ293HSHpkINs zpSpZtKkFTLdsIZfcNG5CQ PfXN2ikyhkYLarYBvfHXIl slJ8ZMYfmFJhQ1CoBWRlQU 8rfranQPT7PGtnIBPhTDV4 UwLkFHBjg1Eppss2DoUfqm 7jqa49YAN6k1AfjIhnUOS2 ZAZ6UzQzDw0zuCSpDGVbTN 9vSqEwoTAbBSWoio38wDhu EJnmECQ2AVSdchXbo1Fdx2 ysXwTkbbNhX9xmZ8KkUJBf LOPoILQnWuDtzqKtb4Qnj8 VhrTRtbIo6y0ppDFDxYCPa sOxrx2fqJZI1JXLefSUfO3 bmjA5fJFLbTD9fbukrt3ns SQnwKBctRATjsWW7uhQ3UD RriMRtG3TeyH8uUBZfMOii PEPojsw8NpSsRc8kfIOpxW cyMFxzYmtwYWdlXHBnbmNv bnRccGduZGVjXHBsYWluXH BsYWluXGYwXGZzMjRccWxc bGFuZzEwMzNcaGljaFxmMV nlGuYjXGCaZQigI1zlSfBh WqVjGgi0LCFbbKZlVAPuSu j3FZAbbOEnPIWLtCbhsP2m RNMatBdyxQ8pfMR6MVFqif DsyELRsC4mKHZPcE7fKfA4 NNYmDkt4PMA9NnOcsOVufB 0= COMMENT (test code = h7kexQKqYAZocSH4VxBvLF 0559) Twu0lhe7MxaHTydSFpDZzt iVSdtiNkuv82eSR2fQ02UX 2wIELzElJ7UDXelaD4Oah3 VYSxOOPazBJyY732q9ixb7 ubfoErzLS2pFzdCPEaerck AkG8BInrYHVmkeheNIv2EI ejZZGiwTK5PEPirUJzD8Qu YHMkOD5lntg1ELB7NYfyFY YeOeD8WAArmBLpCYRjvTsj BShyr927ZQA9HpUcXORqmz AzaGyxwY2eWwObVGOIGQD0 sQ6dyiXxmR98DOUkjKQliV 5oa7EuZDxtFNxfofDlbJve m78tg8n7rAExbDfivAbomC 0wgqIub9NuHY6pgG94qYLr CFT0yYZueIysCPIkfNk0d3 HquwGqXFVifKatqF8ev5uh ciBmaWVsZCkuICBUaGVyZS KijsQabCCpiuXsnSf5lSCo aKO5NJUabWOfzKBhGYctOK BxEI8sBTmpk5ldERHwfxrs LXAveGz6ULB0yAVoOAKsjo VaPtMnuVMykaMaOk1omKPp YwWdtE2erRVxXZ72eaFjGD Xob9Ukhe0hWQ7rULUbHymr pNHaybVhtQCiwo2nsZBiUB 4hxXSvomUcMIZcKjYkRQ2q fS5ycLgdwL4ufJUthCNtkA WrqWEkfaSjCWHbueWkbu5i KJW0uSGiJUYrcUQxwDHnSV NnKEVpjkUks2flKKAvmQ29 HroyBBZtPXRFYVM0HXCokK NtqNWzv5KptXg8QEubPOZl LSBHRkFQOiBObyBicmFpbi DhyxEpi9gkelltRDTeSTRM qPX4HtIDwl3ggNDmefL0eX VePGhrJTP5WF0jIZfuVZLw SDT9VZ3bhfQvvMMrZDjppY mrmArqodAdttJ9ZFWdI4Wi bHMpXHBhclxwYXIgVGhlIG 61ATVwlZclGbhtFVzbS2Bc PODjQL6lw7RtM07og8eieQ IxhTE4iMFlAPFqvKRsiZ5q aH6pKVbqeOqlmR6gz4veW4 OszXdaW36KXDkKHeGqcdJu ZSAyLiAgVGhlcmUgaXMgZm 8rVYabunvwFsSluAKvVU0s GEEssVuunYQqgPRwOSM6sV Grsl9lWEsfHULEE81zETuz MCAgRklTSCBhbmQgXGkgVE PLZMtoVKYgkYFoyD79YXAe bMC2ZNCnn11vFU3bkSawiM Ids4bxuJDkLENvGLWtx7Ru SOEdRLSnNWK0qURgwkJxqO a8PUSxEWCggV0zrKKsmrWf oV0hCOimsFpuGvVnbkGve5 T9OVKvkO1gKG8wXBBhRD5p jQ6fRUMhfirkGLBtBxmvS5 piGSGbjXNyXDToKRH9FYZn JNC6fI1sRXOnoAp2vLIsvD L4KSXljtQhOLUqtHuynaXf CBYvS0trzCUxfTGogHRuzD VzLlxwYXJccGFyZFxwYXJ9 CPT Code(s) (test code f7cduJRfHNKzjKQ4FwJtTT = 3353) Kpk4gts8VdgJOeqBQrFPwh bZWpgaRopa86tZG2yB82VA 1wFAKjSbZ8FBHztqB8Huu1 KXYoVRUdtZHiA270p5gln3 yyyfDsxQK9zRxpGRWalqry IzI4BAjvWMYqnuyvOLy5UD icEOTwkAS5ZONgcTJsX2Vo MPHlRO2fous4LLB5ACemQM ErQvV7WYJfqDEkOWNrvDcq IZrle201KLR2ByHvCPEvjz JkpPirvP1tPgJiQJT6GRXn NfqjRBvqKKSrYTv6ReYxSA U7YCO5FSclLSZ7 CLINICAL HISTORY (test q9katXSjVLWepBV1KvPpMT code = 3356) Vuh5ibv6XdgFMtyASaQMnz gHTgnuLswa22sAO5uE97IU 5dOXRvVsN5ZHYucsV1Ica0 NRDcMVHvlKRiK142b9mse8 orouUdnPJ1cPbhIXEeyqql SfB5GQpzROFxlreeXVh7PU wuLVRbfYW2HGFvuMGxM9Ca MHHvUJ9iwsv8EPB5QAkrCE CxUjZ0ORRqxCUyDHLfrFej THtnu584YVL0HkXcZVBqyt GubVhghE2dWpXaOAVSqVpg aCAgso5rxQUvATepBsFhtM MsoY3qSDGnck7= GROSS DESCRIPTION (test s9pinHKoTCLmaSKWQYTqW9 code = 7302365636) qfplZiDBIpjYGrH8Lbshvg KBteNW3gRO6keDyxdZFhcT GvJR9ZLRRsWbFnAQCmmYWn zvVtXcPeQQQlzFStfVJ9JB VgWX1tzeozDPxaKJwtRXLx qgT2QSKxeHKwV3SkLMYzUX 6brcvzMLJ4HTvklH8ifqVL KuyaEq1xzHHqcMppNrVrZy NoYXJzZXQwXGZuaWwgQXJp AKx2oZ4ZMqdhXJU2WPBULq jyFTTrLF9Bm9efYBTibCVp SAZ0BXjwmOUmBFRzPXIcAG q9DROeQDlgwXWsOD1lbOso PagdlPdfj6TgiHHsXBgdAK UiVXTzHUpxBZOjPJ8PVoCg ASRxIGh5KyWxBJo4PCi3WL 4IXhAcNXPsYFy0Lou8SIEd SEx8HEhzWT2BWLT3RQlfUQ z8GCT4MFA6BRRmDGFbTtFn XGYgQXJpYWwgXFxmbCBcXG 5jfVxwbGFpbiBBLiBCcmFp biwgUmlnaHQuXHBhciANCl xlcGljTmVzdERvYzEgDQpc bHRycGFyXGxpbjBccmluMC ANClxsdHJjaFxmczIwIFJl W8QsqpAdUBphYSSjjp4nrP luIGxhYmVsZWQgdGhlIHBh hJtpktSvbhOeRE8rUVIuW4 Ugb2Gor09kxrCqYbEyOWAd ZCAicmlnaHQgZnJvbnRhbC C6sY3cevKioUXgSRL9KrCx kMR3CsYfxUDgAhBxZ69eZY fcvzEsBDXcCG6dFAFerr6l tY6yFNXqRaJpyOiio6WfOh EjMvKaqoPiUV07ZMNlknSc n5WipOdgysAyYLMqUKF8Dv 1tjZAbEYUuozLWGL8VCVVy XGxpbmUgXGxpbmUgUGlsYX IgQXJndWVsbGVzLCBQQSwg FEAbFYQCM5PuAZnpoTwbvL 0mBFClA60bd9JTz0UqDEGi GJmsh9xvjOwqt7RihXXdTE vvKJKeoSRjYLoygB3mRqCc b4ubdYe3TLhhpwJ9GRUgom 1WNexayO4wHmTfx0xmuDk9 ZFYGNzguniZ7a9brsEeeb4 WioPUpFC9UZl8= MICROSCOPIC DESCRIPTION z7ujwVGsTGLvoJD8WiSoMV (test code = 3371) Cxt9iux2QbgFGzyINxOZnd kNEnmlUkgt06yOU4nF37BT 5aDWQeQpH4GXExinL2Qmz7 PFBmGZBqhMJjM029l7sgy5 yefxKibIF2sZmnWEKznkpr GyP5UIxeJBGxjqrtNKt0DS gxWUTagQT1KFRpnRSqF2Ul DKWqRG7xhzu0OLP5VJstZJ TqXfJ6TGTxjDGfMVSwgIie JDmqf536CJG6NxPbEKJbtp UtsEzksS6qJnJaTZCZAMOi d2MePYZbwAMhoU== SPECIAL STUDIES (test y8zrxHXcDJIfh8mkJTRkqQ code = 3376) FuZzEwMzNcZnRuYmpcdWMx IMmjafGnXYrlv3JjN5CvYi AwMFxhbnNpXGRlZmxhbmcx HZSyDQC9jlZrFGMsCEsiHT QeUIikTy3ktRJvwKvdUoUu EZMck4ahgxIFcqrdyZt6e4 uyJMBbMnZ6fJQsIMgaX8zi foOtwVTpS6GjsOSevGl1x0 kqZePoRjJ9pDBpJJldU4ic ogRrnXInJBKwVWy2eQ90XA NycI2fbMOjUDlmfxOlHkE9 VMpgBMYwDjX9JPWxmJQxKC LcO1mtQAKdYIwgBSXyVSsw hXDnAEJ1sSppn4S3tSOyrX SxuArtOuDtEmVmLpALb2Ck MDg9jOqhB9GzMCYoKcK9aW QgUGFyYWdyYXBoIEZvbnQ7 yPogwjElb93deSDiHHIaRR PbEjKowIfuVMGpGMGSq1Bq pQexQVH2eOg5uJksExphDT E5Oow1JU6udy89qml7oOns DFJmzjlyZxZ5GSfdZBRsdh vkLIv2GXhpSHPyfLK7PSIw sYCgO5HcYJRuLO9ycyg0GP D3DXpwXHBpShJ1EPTvkAPr TPXxgSveJXtrz120KMY0Tt AdNL2iZ4Qbc2M9iO2vaLIk WHJgbXIzLkRyYTDzeb3kdF UcYDswb5PfIKH8seN8hMTo cWUwUZKqEF71Epcyv3LiYz qki8ZdA84qcPV7QFsgc1ph NR1uHhQ6lfXeXLgct9igqX 5sLkX0UJbvJB8rGK2mVWIo cX8pbcfuJQEnHeXwfsuvOL SlzUypfsOfRz7dlPrnTDB0 CNjlB4hlpB2dSnA1PDboD3 tuxL2kHKk7JPbviIR5AGPm kD0hUM8osiphm0pjGDaoBC znROBzjgA9etI9HNYjwIYy X6PwnL4nMQGqTK3qmnasz0 leEAP7PTtqUFQaVQQ4EiSj LAQyd0Xrxfm9ScNgv9GmuL QzVWrrS42bi753RIKugfJr O5sjfEHbckddiIVagrcyES xbrmY0VMDnSQJmUMjnYEDe XGZzMjJcbGFuZzEwMzNcaG ljaFxmMVxkYmNoXGYxXGxv P2ooEkMwO7AjGQNeIoRvTE bvSEwtwSGkpFYknVB3hN0a CU7sXJDcoVNrK0RuPYNhni GimTZsWWF5vBLbsJTjII0a IZcntXQdw3uoc3SuF7kjsD gzuEY3JM3tOVMlLXCiMUdi n1SxnK6aEmnmfTIqbedyIU xmczIyXGxhbmcxMDMzXGhp P8baHdLzTIPelOqjEIjdf3 NoXGYxXGNmMlxmczIyXGx0 cmNoXHBhclxwYXJccGxhaW 5qFkBmPwQpWfvePI1gQFIv B8pmlBUaNWPlCITkR6imFy HppD6qtWtyCHkaRjXiYfPg VbMFu893sg7yHGZfwBTpmf EMaRDqcU2gIQlyBJlsTLap pSObTKryc2jsKXBwd9m5wC MxRDQhtoTmf3tqYZjuvhIk OSIjaJParPLqDBDpv20tQY csxPdyhRwwLIVpf9LheKxg h0OwTpQsKDual6SxT61anK JvbCBzbGlkZXMgcnVuIGFs f03fg1myTOGoVqH9dTNdaV Z2bBFzyYRba0NvuCkbTTOp k0hbTDMoru0pzxsqzYQur7 AgaZ7suxciYCeahUZvjlKv IHPbs2u1vSTgVCRsFQXmGS sehGm7KZQbe925bt0hwoT9 jQIrWCW4CAmaBCPiVHMhuk UgZXZhbHVhdGVkXHBsYWlu XGYxXGZzMjJcbGFuZzEwMz NcaGljaFxmMVxkYmNoXGYx BQktU1dxRcGtG8SfVQJgGj CtaXEgN6qvdXKtXOQlREmz XGYxXGZzMjJcbGFuZzEwMz NcaGljaFxmMVxkYmNoXGYx QXlhC9xbWoFeA9GgWLYoKq IgIFxwbGFpblxmMVxmczIy VCrtnahiWJGlWOtjU6gyVk EtKJGjqEqrXCnfy0ShDSEm CERfDjsmhnGiGQx8qlQvOH BhclxwbGFpblxmMVxmczIy BOkytgidPGTxXXnpM1rlHw SyZMErlZqfYCsdy0XuNUMo XGNmMlxmczIyIEltbXVub2 ajv7PhE3hrjUlpjJT2FPAu M2peqXEsfZW6DXX1uZ8kZN wccgPwZBZxw0HeEDKpAZVe SuC2zD3iFIW3FiHPrCnxWY BsYWluXGYxXGZzMjJcbGFu ZzEwMzNcaGljaFxmMVxkYm ZbGTXoDNdnI4uyUwXuQ1Np JFDoVvAkzLhyMKdzQJp0Bq xwbGFpblxmMVxmczIyXGxh xvzyNDLkBPczW7hmLzUfPS GwbRldOWvto0AtHIAxXTKw MlxmczIyIHMgTWVkaWNhbC XORU23UMKxYBOatFncyF1l xKNHDACsesR6j9D6RPawOX HxOVl2KUhbnhEoXJTiwX2z KFQpWX3bLOx9olJgHWArj4 FvZE6cWEJyvMFkKGM9CYSn u2HoV9Rex9CiVHPrRTPxsd 9wwaRgKxDZzSOdPHUvid40 PMUlXL6kE9lmMAAuZLHrsz RteFMdk1HkSCJgkEA4rYVa ZZ8PQcPAh44kATZyRBHLfd DlLRRsnQskbTP2znF0rP6k LiBUaGUgRkRBIGhhcyBkZX Ebph3zggMdSIShSZBls0Gi yPGyfQYijdOoG4Nqv6VnVG Mxci29SByzqHXmdv43PM8y M1Gew2IfeQ2rQNczWTPtm9 KbtJYjhAIePBMhu1WrX6co esdpNCfklYTwfD4sRUDpFU k5ROWkh4ChIFLzw2ChCdIo xsCyNXGoDTHyZGZzgH08JG S5lUwohMgrcgDlLC4lZYDk dfNqLDLmJOAwuW6eJVozqo WsDFGesbC2r6W8VFacVOWs taOwRivsEST6epKfwsC1bU QhY9tzmftjQRdrGENjn8Am jH2liVDCwLJkk8DvdPQglY WMqBZoAK0jzyQsMF7xOHB9 ODggKENMSUEtODgpIGFzIH W2JYudWgayHLH6ihKjTLBb g5FcILxsD2jbV90eaUsxwE e6eFWqnUsmwAKjvRSqKLAm qgG6d2H0HHAkb7WjitnyRN BsYWluXGYyXGZzMjJcbGFu ZzEwMzNcaGljaFxmMlxkYm MgJEPbOKodS9dxYwMfFfFv WfgeELZ2tN== Gross assessment was [facility] performed at ([facility]ly [facility], = 2777) Department of Pathology, [address] [place] [phone], Technical component was [facility] performed at ([facility], = 2778) Department of Pathology, [address] [place] [phone], Professional component [facility] was performed at ([facility], code = 2779) Department of Pathology, [address] [place] [id number], [id number] 09:37:47 Test Item Value Reference Range Interpretation Comments Case Report (test code Surgical Pathology = 104) Report Case: [id number] Authorizing Provider: Smith Connros MD Collected: 09/21/2022 11:03 AM Ordering Location: [address] Received: 09/23/2022 11:19 AM Service Pathologist: Rc Quiñones MD Specimen: Brain, Right, Right Frontal Tumor ADDENDUM (test code = [id number] 3381) Due8lne6HmdNXpjSPhWNll hAEwigAkgz44rME0lD76BN 9gIDXrUdH3OOWvqrF7Ser0 FJAvAEKlpKSyW105j7etb5 xvduWgxRW6hBxzWDUqwmqm PqM7JDpsGDXxaxswKJs7NP taPFCynBU4OETbcAQfU6Hh DGNbLA2uvyk5MKD3UEfjJQ IxHnG5CCRvtIWlFFJfqBxk NQsob359HIF4YyQeXZJkqo BteEiekM9mVmzqudRmIFQW CREZDHHZWOIKQTvJW8ZDKy pccGFyXGIwIEJyYWluLCBy zTgwzHUkbc9wlGDrNHQ1rM 5jJQWkvUGzw0qwyaokyJHt BTCiPsBiXJHRBP3wdrado1 4kRQICAtWdT7uGUVvlWOWf IDJccGFyXHBhclxiIENPTU 1XSaIfpDDqPUBvTDRbFWy7 jH9sNPfyl2F8WGnzydMjzK UyPb7wrWBnWTOfPNHbcjEa kuUoCDPuMTOibJTOYB3EOY 6wnSjejxmmn6ieuwtjkOOg HG6lYQskQ8ZNJpVGEPadJM CPLCUXRpHVadQxlfuvRV7b UGXqPcRtXz1zkn4kgZe4uK VzXHBhciAtIFxpIFRFUlRc aKJwIZJyj23zpHQdDA39oC W1rM3mMjOEv4PcQEA3BBB0 ZWRccGFyXHBhciBQbGVhc2 TpsdGwJBCvnN4jqVbtXX2l g6wozg8lvNIwKMErtE7glF Jjh6LwEVH4WJojKhskYGLk cGFyfQ== DIAGNOSIS (test code = g2tmoPSzAQNxp9huYILlgE 3220) FuZzEwMzNcZnRuYmpcdWMx IHtccnRmMVxlcGljOTYwMl ggxzAxQQRwdCZgU4Qtinqu SJiuJG9dFT9naYnaqWUsaC QvMILcZgEul2zxl131cIOd z8wiLOANupdjbHa3dCnwJ4 1nc1P4VebgV33kkDRrNCE4 WMTyXVBgfNYjBWGyMUY7QY GeePZrJ5cqIXYqVF2ckjjj BBxgRHwlRBJaxIZ9RZCfjZ EmD9QtRFBpNIuuVSGtaqh3 IgZoTo4lhRAepUseGEsyVL JkXHBsYWluXGZzMjAgQnJh cJ0sLREkI4q2RKNiq235CY rpgDKxm3CxTNW6O9njnY5u RvmrTVLrjVRlSLKySO6ftd fqM9ttvUIbAMolr9FbdB8n cNJrtNp5RXLWMoNQLN5mK8 YsLDSzYuaxj8AlCABpqG2w bnRccGFyfXtccnRmMVxzc3 NjFJplWZAaZA4dfYeaOUMk DT4yUGOlU4oxdE7ogfi6Ux ZgLUAsFsC0KSKozaV3Sgu9 TAKzBLbdi6yvb0YoLYWxDE d5sYzpGxThVHHom8fwchCj ZmNoYXJzZXQwIEFyaWFsO3 49v7yzt4gszzDeoNN4JGNu UPA3ENhfraBmlkY7YCjdgU ZlLmF1WWinsfFbDFxwuwQl efPyGnx6DEZdZ837AVC7tP ros7kcZMN0UVBkYPEjEbQy Cg1lcRIeF711HECsYKMQNG BhbYv5DVNxfhAikbEgbZCJ s233X096a9giTNKqluWmpM lImmzrq4jzD547EBGihIGs imFcNsBeEZZtnVNflCK6PZ AsSJ2vkdlsNZliXOgjPWZm yoV5VSVmnNLgJ0TlTZTpBJ 4buihjUXM5RXciFRFmPLH3 QmOpUBNbq6Xhxma6EaOtqr 1pap31NRQ1o3WhwJsbHCS5 AAB0FwFcXg7lyRIqZUGlBB 0wJjLrdUFoGUAmfk47nQkw BVxmMDP2YWLpfbTir7Hxz4 xfQbHsocGnA6xmR7JoFOXo VVNyLMSfGsHycwKbr8Bte6 PwcGCziDq0w0baHYJhKOPn tFrxf4jfFVB3QZJjzTJnC8 rxrZ0sXJYfAE5mtcjqz5jl YQkcKPbwJANepAH9awO2BF JgyYRzM1WbcE8rEFTfVMrn CSNvozg5StYrKg3fpJMvwL cyMFxzYmtwYWdlXHBnbmNv bnRccGduZGVjXHBsYWluXH BsYWluXGYwXGZzMjRccWxc bGFuZzEwMzNcaGljaFxmMV mnHtWiIORmFFcgM4syDuLq GmLqLha2ZCWseEIqNMLtZx y6YCNxcQLtXQECjYmvbJ6a IOZajRoguK9ckKZ6KEWbzo IdnFQJlM0pFGIPoY3aYvD3 WCVdLas2XYQ5ZcDokBLusE 0= COMMENT (test code = o9ipzDZtEXLweYQ7OsGtNS 1595) Ptv9jas3IapKEkqCTmBWoc gGSgbgLemw20zLW0oR39OH 5pGCMqHyD1ROQnxqZ5Fma7 GXJzEITckIMfE677n4aip2 lxxjRanDV7gGeqMFOiudiz JjQ7ELkeLGWodfhkSPj5NT daNCNleGM4VOAcdDZlB7Rf RCAiBV1rsgz0SPJ7ZZxkMT NpPnE5TTLdnLXtSSLanLtq EItsy024JKC2FxXaMSTyma FxbSowaW5mDqQpROLMOOF9 lN0rjpSuoZ51YZJqqTCpqB 7xd4XqODldMTssjeBsnNtl u30fh2k5wUUwkNcuaOwmlW 4vliBbn4PhEW9orP54uDAa FNN1fFUawViiJGQihUm7k4 BbmoGcJZKauWmjhM2rl0fk ciBmaWVsZCkuICBUaGVyZS HcenHowDAwlbUusSh5hYHq gBT6TSDyeHBgzUVpVXtdBC LlVL6fZVicl0wuSOZhwpww PVUjtGx2OBC6lPRsIECyek PhGuFyqQIagfEfZi5zvNWq DkFomY8juNTeAV97gcKcPZ Tqs3Bmco9iJX2kGARpIuqm xDLqdyJhgWPyum8zlPPcQT 1weUNureXuGYWcRiDtQI8j nC6zaSmfnS4jsVMcdLHstX ZqsPDupuGuOFLjgjAtfo1q UHI4yKQnINMauOGmmKXeAX KsLCXskqIlg9rtCVTtvM18 TjxyMXWsZVEMULU7DGBdnQ XbxXClm9IevSl3IXhhXANo LSBHRkFQOiBObyBicmFpbi VmbhQsh4tvcuujVEVcWUEO eYR9ZcACuv9vhTFuslO7gM ZpSYttYZW8RI0sPJgcAAXv TPV8SS8fceStwKOhQSzufX cgiHofbpYwsdF4ROPeB1Sl bHMpXHBhclxwYXIgVGhlIG 09JQPueMugXwgfPSbiH0Zs OULnCE2jn5WjB78mf5mmkN TlkYM2uECwBELrhPEzpB1g tA9sYEtuxTsohO7do7fxX9 SezMjvS28BHCaOVhNriwFp ZSAyLiAgVGhlcmUgaXMgZm 6oGTyomevzYwEwsNJbHY1t LJSldKawsORynVYmTOF6aW Tsev1bGWipZOMBY26wTLch MCAgRklTSCBhbmQgXGkgVE UMSVdcWZZinBZjmF17LCBb dDP9HIEtu00rBE8hnKqzfB Ufl0xltYMyULOhFDZof0Bv JAXsUCOjVRF4kCYixyKsnS z1FCUhAGFjwI7ouUZsflUa hJ7cAVnazCmdAvAqxaTfe4 H2DUHauU8hXS2eMWJnLA3b vN1lWYOzsqsyTYBfGuznC8 qaMNZitBUlJXUgVXP3NBGb EZZ8tJ6nCNChgEo3eXFnuC D8CMNakpWbPJHwhCqjawCw QBZoE6uvwZTmcCFmrEVntS VzLlxwYXJccGFyZFxwYXJ9 CPT Code(s) (test code i8ivsFAeXJHemCF0SlXnWP = 3357) Luu9vif7HsbGAigRHaUIsv xFEbobYbgn23nKK7fH47JT 6oTDOnFzS6WCAyzyW3Qvv0 FAZoXAYkyKSeD096r2kch6 bpojJypSK6jDjoGSAxwoar IkH5QBzlVNIblmbtDKn6ZO weUJPmbZA4IQYevBKuC0Gw TJGmTR9nkqm7EGA2AZyiDV GwKxP3LAUcyESkLFTkhTco ZWvzi242AWB8DaClRSFbks GaxAvagW1aYlMjUHH6WORs ZaelUFlzIDBdDWz7JgRjYG C0EUX6QRsqQRC1 CLINICAL HISTORY (test y9yieRRnGRJglCF9GzGyCD code = 3353) Cjs3mgy9RqmGUyoWPeHEmc vCXhazShok95fFM2vC61VU 5zOGZeSeC8NWWziqG3Odb8 SDQbDWMrxFQyM483l2wyy2 hghzZfyNA7vXmiCJKzdkjc MtM5GPfyASAnnepxAEl9YU izRXYrkIB8VNBtfYWhB9Qo CMZlGJ4kqfr0UGS9UXkwXL JrJmW8LORclXHaCQVgcIht WOyjv230UMN9TiZiAZCblw HyiJvkiQ2xSyIwEXDVpHly dRBgdh0vnDTxEHyjGkIsuR QedK4tOLRlcx4= GROSS DESCRIPTION (test p4plqECsRNRknGIGKZLrO4 code = [id number]) nzutGvETFacMIyE4Svoilx WAlyWI5pUV1gwEshwJAenA JcYY5FWFTtXeXmXRDpzZVe yyHoHrIdVZGjtIQwzEL9DC ZrIM3ypmreJQurORfgYQFk ryB9FWEgoHMnY3IqBXRmOX 7byjxfLGR4OWntpX5arlPX UtbyCl6kmTFiuQdcJzRsVl NoYXJzZXQwXGZuaWwgQXJp NVz8jA8UOlldIZQ7LVERHd szIEStHN9Fr1zsDFSrrBCp OYB4NRcedAVnIEYvDAJwXU h9BYCoAVpnkGFgKD8dyWfg PfzufHdlw6WzuALsPVwuMF JbQMJfATusYAUlRC4DFxAl YCXwSAa6YuRgGDv5ZJq7EZ 7OHzUnXWIyNJl0Wyt7CUKs SQj4LJbqNG5CSXA3NUzpKN k0TQH9CMJ9ANLsSFYaNgYa XGYgQXJpYWwgXFxmbCBcXG 5jfVxwbGFpbiBBLiBCcmFp biwgUmlnaHQuXHBhciANCl xlcGljTmVzdERvYzEgDQpc bHRycGFyXGxpbjBccmluMC ANClxsdHJjaFxmczIwIFJl K8SlalLuDAhpHSNecr4gvZ luIGxhYmVsZWQgdGhlIHBh fBbglrWqsbMiHI1bDTYaA8 Vcd5Pvr45jomWnWwEkEBHm ZCAicmlnaHQgZnJvbnRhbC G8jV1puaGnjFYfNAN9VlPa nHD9EvTrmZVwQnNoS41yTH fdelEbTKJnJZ6nDAFiai9z jE7oRJGnFrWoxDatw1ZkQc ZaFmWbzwGyHE06TOKjfsSa y4CuvCkpyjMuKBVcVPP4Sp 9muMHsMTXuuxREXU7RRRKp XGxpbmUgXGxpbmUgUGlsYX IgQXJndWVsbGVzLCBQQSwg MVGvTQEMV4LgBXsshAhbaP 5oWOWsR62bc3YUk2MqFQVa YHdog7jriFpei3CpvZWqIG ooINYfyCJcLKbdfV3cRdLh s2zieXj0SEzfjwH7BEYcff 0YXcmyqG8eKeXog3adyGq6 NCOIJazufvT7s8dtmEdzc0 CbhFAxZO4ZEp8= MICROSCOPIC DESCRIPTION c4evzYKoTGKgwDB0CbDhWU (test code = 3371) Lce1pem6MxpJWoeUNsKUmk nVYwueHygo95pTL0lK06NV 8yTBNyUyU3PWGksjI9Joz4 UDEaQPSfcOTgM018n5uwq9 scdaYvuQB2zSsbIKPbpdqn VvP4AKxaBNJoruimUWt5KV dsKPJpcKF5VASpnXDuG7As XVRgZV4skon7KDM9TJacHP XpOyL9VIWkhFSrAXHvaHlc ZWsos413YJQ8IpOmUSNngh HokZhcgD8dUkBfILJHZTPu j4NdOLNgeIRfyX== SPECIAL STUDIES (test b6prbSEmDMXix2xxJIUcxO code = 3376) FuZzEwMzNcZnRuYmpcdWMx SWixvbLwPDdmd0SjH7HkDo AwMFxhbnNpXGRlZmxhbmcx YEKsKPN1kuJpVXMpMVumZS JgWKluMy2vcTFaeDgyHfNb WYYqb1klhiAMgrwimWn7t8 xyYOBaSnU9pVMrMXyiP4uz dyJafSZaD7ThjJEcrKr4e1 ysUmFxHcH1oVTwOQcwE4mp ezOcvZBmVIBkQTy9sN82GL ZuwA8wjYZaVSkcvnBwNcN4 TXgjJPFmFhP1TQWydFMgZA RbG9klAGDaZRdoADUcBPbl wXExYYL4oVoej5A8eLPvdG XjiJrkVaHfXeXsZlZZp5Ih RHu9rStfL6ZsVHUsPnY8kW QgUGFyYWdyYXBoIEZvbnQ7 lBdhzuWew81xzKAbIIXzLN FfBgHwjDajKPUhFWUYj9Ih aJbdQUY6dOs1oWgqIblhAA I8Tql1HH5jda83awv3oAqg XURxbaroKwI8ILslFYCsla jkWQl0KAvxNKWoyBW0RKCy qUVgS6CkHSYkJO7zyyl9FX I8YRmnXETrYkB7ZMPebDDj VVLryTmnVGxwy476JRH3Dz HnLU6mQ8Vsb6G7cY1jxHMo PKCeoMCmCvClJQLzke9ftL BeCVzez2VaFOK2xyE7bRTk rZYqWDXpJZ92Shrlk2HoGc eia4SgP76kiEA6OHkwa1jm BF6oDhC7lhCrHFscw7ldcA 3eWnB0FOnmII0cCQ1aHCUz tW5tvdwoYYLrPcMdfuoyWR EqjElbowGwMz8cnIozPGG1 AQngC2xnjB9fLzJ4YFnwQ3 mkuQ2yGQn4FOvisRM0TSSe dY0cAD9qbvrgq3ioUVcrML njSNZcqyB8scB6LKMljVTa L1SqdP2oZAIpJK2hegzkp0 wlZYO2AXqbNFUrNLE7OrHp AQLtl1Fjydw7YwQdc0EnzG RnAIdxU58ic670XREuodLc E7bcvDKssbxoeRPdohncFG pegxW2MGJeAXZmILdkNFEd XGZzMjJcbGFuZzEwMzNcaG ljaFxmMVxkYmNoXGYxXGxv F0wkImJcR3PsFJPwIeAvKM ieZPheaVTyzOOmjBM6xC1q SA2nKFSaiOLrV0DpGQFusg QplRIjBJS9zLMvfHCkAZ2z UPofjQZcs4lrv9ShF6gulE ubxHU9EB5oHGWeYLTdOSqx a6CsqM5jJvkotJDjxigyOU xmczIyXGxhbmcxMDMzXGhp I0whKxVzPZYkmFkpJCbxt8 NoXGYxXGNmMlxmczIyXGx0 cmNoXHBhclxwYXJccGxhaW 8lWrBoZcMzUeszOJ9oXMZt L3ngxLPiLNMuTNOgV2ooEh WqfN4rhXdeURkvErBpVxIa JnOUo003ue1zYDVduAWlit PXpZLgcA8xSDlmQSkvCUqu wNMtTDszm5wrGXSln2x4cC RiWSBjwfYua5bkSSvpvmIc TVMphHRceBLrDERid26gNR amcEdyuLpyIFGsm4SbuXkf u2VaXePwBDlru3FqY12ciZ JvbCBzbGlkZXMgcnVuIGFs g98ah1moDEWgNxY0xSVuyU R7zROycUPyv5VacCmjRAYf u7ofOUHoed9kfcpueYEpz8 LepT5ocrnjFPlmfRCryvHq ZZKxm1f9tWQnYLDsNGTlCO eqeUd4PSPzu103jj8pftB6 gXHaTAI3QQlmYVDsKOFouv UgZXZhbHVhdGVkXHBsYWlu XGYxXGZzMjJcbGFuZzEwMz NcaGljaFxmMVxkYmNoXGYx JYewD5maMiVfY2DgCNUfVb LnnOAeJ3carZMdVFFbIYja XGYxXGZzMjJcbGFuZzEwMz NcaGljaFxmMVxkYmNoXGYx UWfwX9pwRuSaS7HgWULtTx IgIFxwbGFpblxmMVxmczIy WDuvljalJXPbTXtxA4cgAr HyMUJslSjmKYakm4DsPCDy HSNnHozbvhNzIWg4ghJwIR BhclxwbGFpblxmMVxmczIy AXoikfpdMNMcIRwqS3uxSy XvKDYivIqqTAwax7DnOMVe XGNmMlxmczIyIEltbXVub2 wux7YrC7rzkWjdeJT9JQXb D7xpiXYrgCC1BEO0yS7uYP qctkGsLQPcm6NqBACsCCDs MnA7vH2yVMR9BuJZbJshXZ BsYWluXGYxXGZzMjJcbGFu ZzEwMzNcaGljaFxmMVxkYm YeHAKgVGudW9wtHxOwV0Pl FLZeUwFypEekTLbyONb3Sf xwbGFpblxmMVxmczIyXGxh ivrlMGPrDLsqX3cfKuHkAT UqyJmmDQrkj6ObRZZcRQVe MlxmczIyIHMgTWVkaWNhbC RIMZ51VQPlPGAadIovrW8k fDLOXNCginY7g4X6PRfpLT IwBJs3RBefurFdULLewQ1t PVDcNM7hRZo5cgTeYQTrw7 XoXZ3yYGPbzVKyBZF1VEFs y9EiA6Wzj6UmYRIzCONsxs 0bmcNaVhMZqDWlQGOszy71 JLQqPM2dH0qoVRYdPYAibe UygFYpg7FeWIMimMM1bTIq TD5ZPuLIw74kVAAmUJNSkz AsHCZjnXtodKA2gvD2oL1i LiBUaGUgRkRBIGhhcyBkZX Xthz7facOhXLWbBJOzh8Jt bXXuuJGhiqOhK6Hbi4NnDC Ezly29KFobbECpna84GG1p X4Xee7CplS3gBFokBVYyc0 PfnVIedFKeMXOrq6VyY1rg jiidRJpgnVLptA1rSDQkZJ f7SDCzf1GwIQRkh9HsEzXk bkDoINKuQJEiFJMqrA92TA E0cWxcjPscafMfGF8dCFFk ouZdRPZgRYMhdE7hMKhnja JpVWGdslH4c4C7JDapAWFc ljIrAesvDDE7qcJjbsM4aO LoM0uuhezdSPwlQGBho6Mu lC7whQWCcOPgq3TpcKCgnF YKbAFpBR9mzbCuCD6tRDV1 ODggKENMSUEtODgpIGFzIH K9ZRvlYckaMCC2yrKvYTZs l4QdWNplZ8koM03teAvndH v1wMJzkQovtVLtcVUrNUHo gaD8c8P6YSHwg0IypdybEI BsYWluXGYyXGZzMjJcbGFu ZzEwMzNcaGljaFxmMlxkYm GtOTJcRWvxY0nwRhIbVwDh AgijTEA8bF== Gross assessment was [facility] performed at ([facility]ly [facility], = 2777) Department of Pathology, [address] [place] [address], Technical component was [facility] performed at ([facility], = 2778) Department of Pathology, [address] [place] [address], Professional component [facility] was performed at ([facility], code = 2779) Department of Pathology, [address] [place] [address], [facility] [id number] 09:37:47Surgical Pathology Report Case: [id number] Authorizing Provider: Smith Connors MD Collected: 09/21/2022 11:03 AM Ordering Location: [address] Received: 09/23/2022 11:19 AM Service Pathologist: Rc Quiñones MD Specimen: Brain, Right, Right Frontal Tumor ADDENDUM DIAGNOSIS:Brain, rightfrontal tumor, excision: - Meningioma, INVENTORY ASSOCIATE AND DRIVER WHO grade 2COMMENTAdditional studies (performed and interpreted at [facility]) show:- CDKN2A FISH: No evidence of abnormalities- TERT promoter mutation: Not detectedPlease refer to the [facility] report for detail.Addendum electronically signed by Rc Quiñones MD on 10/10/2022 at 9:37 AMBrain, right frontal tumor, excision: - Meningioma, histologically INVENTORY ASSOCIATE AND DRIVER WHO grade 2; see comment Signing Pathologist Direct Phone Line: [phone] signed by Rc Quiñones MD on 09/30/2022 at 10:24 [...] are most consistent with a meningioma, histologically INVENTORY ASSOCIATE AND DRIVER WHO grade 2. There is focal rhabdoid and papillary features. CDKN2A FISH and TERT promoter mutation analysis will be performed, andthe result and final grading will be reported in an addendum.Block A2 has adequate tumor cellularityfor additional ancillary studies.23185, 36588, 49107, 44181Fadba frontal lobe lesionA. Brain, Right.Received in formalin labeled the patient's name, accession number and "right frontal tumor" is a 8.0 x 5.5 x 2.5 cm aggregate of recinos-pink soft tissue. Operations Support Specialist sections are submitted in A1-A10.ROBERTO CARLOS Choudhary, HT (ASCP)PerformedThe interpretation of this case included the use of immunohistochemistry or special stains.Control Slides Examined: In-house known positive controls were evaluated along with the test tissue. These control slides run alongside of the patients sample show appropriate staining. Internal positive and negative controls when available are evaluated Immunohistochemistry technical testing was performed at [facility], Pathology Laboratory where it wasdeveloped and its performance characteristics were determined. It has not been cleared or approved by the U.S. Food and Drug Administration. The FDA has determined that such clearance or approval is not necessary. The test is used for clinical purposes. It should not be regarded as investigational or for research. This laboratory is certified under the Clinical Laboratory Improvement Amendments of 1988 (CLIA-88) as qualified to perform high complexity clinical laboratory testing.[facility], Department of Pathology, [address] [place] [address], [facility] of [facility], [address] [place] [address], [facility], [facility] of Pathology, [address] [place] [address], KQQ-Glucose [id number] 11:29:01 Test Item Value Reference Range Interpretation Comments POC-Glucose Meter (test 280 mg/dL 70-110 H : TE STED AT [facility] code = 1538) [address] [place] [address], [facility] 30: Silverware Assembler/Techni denzel ID = [id number] for NIMESH Mcgowan Lab Interpretation (test Abnormal code = 93798-8) [facility]-Glucose [id number] 11:29:01 Test Item Value Reference Range Interpretation Comments POC-Glucose Meter (test 280 mg/dL 70-110 H : TE STED AT [facility] code = 1538) [address] [place] [address], [facility] 30: Silverware Assembler/Techni denzel ID = [id number] for NIMESH Mcgowan Lab Interpretation (test Abnormal code = 78459-6) [facility]-Glucose [id number] 11:29:01 Test Item Value Reference Range Interpretation Comments POC-Glucose Meter (test 280 mg/dL 70-110 H : TE STED AT [facility] code = 1538) [address] [facility], 770 30: Silverware Assembler/Techni denzel ID = [id number] for LYRIC Min NIMESH Lab Interpretation (test Abnormal code = 86744-8) [facility] [id number] 11:29:01 Test Item Value Reference Range Interpretation Comments POC-GLUCOSE METER 280 mg/dL 70-110 H : TESTED A T [facility] 6720 (BEAKER) (test code [facility], = 1538) [address]: Silverware Assembler/Techni denzel ID = [id number] for BIBI Min ROSELYNDESTIN PRINCESS POCT-GLUCOSE [id number] 08:11:41 Test Item Value Reference Range Interpretation Comments POC-GLUCOSE METER 209 mg/dL 70-110 H : TESTED A T [facility] 6720 (BEAKER) (test code [facility], = 1538) [address]: Silverware Assembler/Techni denzel ID = [id number] for RAIZA Rajan PRINCESS BASIC METABOLIC [id number] 05:38:20 Test Item Value Reference Range Interpretation [...] De scription 1092) sq m Result G1 Rory l or high >=90 G2 Mildly decreased [...] not appl icable for dialysis patien ts Silverware Assembler ID - [id number] 05:33:25 Test Item Value Reference Range Interpretation Comments PHOSPHORUS (BEAKER) (test code = 3.3 mg/dL 2.3-4.7 604) Silverware Assembler ID - [id number] 05:33:24 Test Item Value Reference Range Interpretation Comments MAGNESIUM (BEAKER) (test code = 2.1 mg/dL 1.6-2.6 627) Silverware Assembler ID - BSCBC (HEMOGRAM ONLY)2022-09-25 05:03:13 Test [...] 0-0 (BEAKER) (test code = 413) POCT-GLUCOSE [id number] 21:32:36 Test Item Value Reference Range Interpretation Comments POC-GLUCOSE METER 262 mg/dL 70-110 H : TESTED A T [facility] 6720 (BEAKER) (test code = BRANDT Mccracken [facility], 1538) [address]: Silverware Assembler/Techni denzel ID = [id number] for ANA MONTELONGO POCT-GLUCOSE [id number] 16:33:08 Test Item Value Reference Range Interpretation Comments POC-GLUCOSE METER 269 mg/dL 70-110 H : TESTED A T [facility] 6720 (BEAKER) (test code [facility], = 1538) [address]: Silverware Assembler/Techni denzel ID = [id number] for LEWI S -Álvaro, LATAND PRINCESS POCT-GLUCOSE [id number] 12:37:17 Test Item Value Reference Range Interpretation Comments POC-GLUCOSE METER 444 mg/dL 70-110 HH : Notified RN/MD: TESTED (BEAKER) (test code AT [facility] [address] [facility] = 1538) [facility], 770 30: Silverware Assembler/Techni denzel ID = [id number] for LEWI S -Álvaro, LATAND PRINCESS POCT-GLUCOSE [id number] 07:39:37 Test Item Value Reference Range Interpretation Comments POC-GLUCOSE METER 185 mg/dL 70-110 H : TESTED A T [facility] 6720 (BEAKER) (test code [facility], = 1538) [address]: Silverware Assembler/Techni denzel ID = [id number] for LEWI S -Álvaro, LATAND PRINCESS PHENYTOIN LEVEL, [id number] 06:08:40 Test Item Value Reference Range Interpretation Comments PHENYTOIN (DILANTIN) (BEAKER) (test 4.7 ug/mL 10.0-20.0 L code = 605) Silverware Assembler ID - PRASHANTH GBASIC METABOLIC [id number] 06:07:50 Test Item Value Reference Range Interpretation [...] De scription 1092) sq m Result G1 Rory l or high >=90 G2 Mildly decreased [...] not appl icable for dialysis patien ts Silverware Assembler ID - [id number] 06:04:39 Test Item Value Reference Range Interpretation Comments PHOSPHORUS (BEAKER) (test code = 4.4 mg/dL 2.3-4.7 604) Silverware Assembler ID - [id number] 06:04:38 Test Item Value Reference Range Interpretation Comments MAGNESIUM (BEAKER) (test code = 2.3 mg/dL 1.6-2.6 627) Silverware Assembler ID - BSCBC (HEMOGRAM ONLY)2022-09-24 05:44:57 Test [...] 0-0 (BEAKER) (test code = 413) POCT-GLUCOSE [id number] 20:36:01 Test Item Value Reference Range Interpretation Comments POC-GLUCOSE METER 249 mg/dL 70-110 H : TESTED A T [facility] 6720 (BEAKER) (test code = [facility], 1538) 45152: Silverware Assembler/Techni denzel ID = [id number] for Del yulia (contract) Rosie schreiber POCT-GLUCOSE [id number] 16:28:16 Test Item Value Reference Range Interpretation Comments POC-GLUCOSE METER 197 mg/dL 70-110 H : TESTED A T [facility] 6720 (BEAKER) (test code = [facility], 1538) 15[address]: Silverware Assembler/Techni denzel ID = [id number] for Esther damon Jr. (contract)Samm POCT-GLUCOSE [id number] 11:29:20 Test Item Value Reference Range Interpretation Comments POC-GLUCOSE METER 260 mg/dL 70-110 H : TESTED A T [facility] 6720 (BEAKER) (test code = [facility], 1538) 82429: Silverware Assembler/Techni denzel ID = [id number] for Esther damon Jr. (contract)Samm POCT-GLUCOSE [id number] 09:24:57 Test Item Value Reference Range Interpretation Comments POC-GLUCOSE METER 237 mg/dL 70-110 H : TESTED A T [facility] 6720 (BEAKER) (test code = [facility], 1538) [address]: Silverware Assembler/Techni denzel ID = [id number] for Ch nelson Jr. (contract), Samm MR, BRAIN, [id number] 08:38:00Unlisted Reason for Exam - Click Yes and Enter Reason Below->No [facility] : 1955 Sex: FFINAL REPORT MRI Brain [...] García MDReport Verified Date/Time: 09/23/2022 08:38:34 POCT-GLUCOSE [id number] 07:56:16 Test Item Value Reference Range Interpretation Comments POC-GLUCOSE METER 61 mg/dL 70-110 L : TESTED A T [facility] 6720 (BEAKER) (test code = TARSHAJIL Mccracken [facility], 1538) [address]: Silverware Assembler/Techni denzel ID = [id number] for Sun puckett Jr. (contract), Tejinder id BASIC METABOLIC [id number] 04:56:42 Test Item Value Reference Range Interpretation [...] De scription 1092) sq m Result G1 Rory l or high >=90 G2 Mildly decreased [...] not appl icable for dialysis patien ts Silverware Assembler ID - [id number] 04:56:30 Test Item Value Reference Range Interpretation Comments PHOSPHORUS (BEAKER) (test code = 5.5 mg/dL 2.3-4.7 H 604) Silverware Assembler ID - [id number] 04:56:29 Test Item Value Reference Range Interpretation Comments MAGNESIUM (BEAKER) (test code = 2.2 mg/dL 1.6-2.6 627) Silverware Assembler ID - BSCBC (HEMOGRAM ONLY)2022-09-23 04:30:07 Test [...] SARS-Co V-2 (test code = target nucleic 97252-8) acids are detec tara in this specime [...] revoked sooner. Fact Sheet for Healthcare Providers: https://www.RetSKU/Documents/Xp ert%20Xpress%20SAR S%20CoV-2/Fact%20S heets/116-9141%20S ARS-COV-2%20HEALTH CARE%20PROVIDERS%2 0FACT%20SHEET.pdf Fact Sheet for Healthcare Patients: https://www.cephei d.com/Documents/Xp ert%20Xpress%20SAR S%20CoV-2/Fact%20S heets/302-3801%20S ARS-COV-2%20PATIEN T%20FACT%20SHEET.p df Lab Interpretation Abnormal (test code = 59988-6) [facility]2022-09-22 21:21:31 Test Item Value Reference Interpretation Comments Range SARS-COV2/RT-PCR Positive Negative AA The SARS-Co V-2 (test code = target nucleic 56709-5) acids are detec tara in this specime [...] revoked sooner. Fact Sheet for Healthcare Providers: https://www.RetSKU/Documents/Xp ert%20Xpress%20SAR S%20CoV-2/Fact%20S heets/302-3802%20S ARS-COV-2%20HEALTH CARE%20PROVIDERS%2 0FACT%20SHEET.pdf Fact Sheet for Healthcare Patients: https://www.RetSKU/Documents/Xp ert%20Xpress%20SAR S%20CoV-2/Fact%20S heets/302-3801%20S ARS-COV-2%20PATIEN T%20FACT%20SHEET.p df Lab Interpretation Abnormal (test code = 65796-1) [facility]2022-09-22 21:21:31 Test Item Value Reference Interpretation Comments Range SARS-COV2/RT-PCR Positive Negative AA The SARS-Co V-2 (test code = target nucleic 69742-0) acids are detec tara in this specime [...] revoked sooner. Fact Sheet for Healthcare Providers: https://www.RetSKU/Documents/Xp ert%20Xpress%20SAR S%20CoV-2/Fact%20S heets/302-3802%20S ARS-COV-2%20HEALTH CARE%20PROVIDERS%2 0FACT%20SHEET.pdf Fact Sheet for Healthcare Patients: https://www.RetSKU/Documents/Xp ert%20Xpress%20SAR S%20CoV-2/Fact%20S heets/302-3801%20S ARS-COV-2%20PATIEN T%20FACT%20SHEET.p df Lab Interpretation Abnormal (test code = 66980-7) [facility]2022-09-22 21:21:31 Test Item Value [...] individuals suspected of CO VID-19 by their [facility] e provider. Results from e Xpert Xpress SARS-CoV -2 test should be corre lated with the clinical hi story, epidemiological data, and other data imelda chance to the clinician evalu ating the patient. [...] revoked sooner. Fact Sheet for Healthcare Providers: https://www.Popcuts m/Documents/Xpert%20Xpress%20SARS%20CoV-2/Fact%20Sheets/3023802%60MELS-ZRZ-3%20 HEALTHCARE%20PROVIDERS%20FACT%20SHEET.pdf Fact Sheet for Healthcare Patients: https://www.Nduo.cn/Documents/Xpert%20Xp ress%20SARS%20CoV-2/Fact%20Sheets/302-3801%03HYRS-LUI-4%20PATIENT%20FACT%20SHEET .pdfPOCT-GLUCOSE [id number] 21:16:09 Test Item Value Reference Range Interpretation Comments POC-GLUCOSE METER 93 mg/dL 70-110 : TESTED A T [facility] 6720 (SheerID) (test code = TARSHAJIL Mccracken [facility], 1538) [address]: Silverware Assembler/Techni denzel ID = [id number] for Pat sanchez (contract) Rosie schreiber POCT-GLUCOSE [id number] 16:04:16 Test Item Value Reference Range Interpretation Comments POC-GLUCOSE METER 135 mg/dL 70-110 H : TESTED A T [facility] 6720 (SheerID) (test code [facility], = 1538) 99[address]: Silverware Assembler/Techni denzel ID = [id number] for CYNTHIA Mobley POCT-GLUCOSE [id number] 11:44:37 Test Item Value Reference Range Interpretation Comments POC-GLUCOSE METER 89 mg/dL 70-110 : TESTED A T [facility] 6720 (BEAKER) (test code = BRANDT Mccracken [facility], 1538) [address]: Silverware Assembler/Techni denzel ID = [id number] for CYNTHIA Mobley POCT-GLUCOSE [id number] 08:35:08 Test Item Value Reference Range Interpretation Comments POC-GLUCOSE METER 118 mg/dL 70-110 H : TESTED A T [facility] 6720 (BEAKER) (test code [facility], = 1538) 10653: Silverware Assembler/Techni denzel ID = [id number] for CYNTHIA Mobley BASIC METABOLIC [id number] 05:04:52 Test Item Value Reference Range Interpretation [...] eGFR (test code = mL/min/1.73 values Stage D escription 1092) sq m Result G1 Rory l or high >=90 G2 Mildly decreased [...] not appl icable for dialysis patien ts Silverware Assembler ID - JONES [id number] 05:02:54 Test Item Value Reference Range Interpretation Comments PHOSPHORUS (BEAKER) (test code = 4.9 mg/dL 2.3-4.7 H 604) Silverware Assembler ID - JONES [id number] 05:02:53 Test Item Value Reference Range Interpretation Comments MAGNESIUM (BEAKER) (test code = 1.9 mg/dL 1.6-2.6 627) Silverware Assembler ID - JONES BCBC (HEMOGRAM ONLY)2022-09-22 04:39:48 [...] 0-0 (BEAKER) (test code = 413) POCT-GLUCOSE [id number] 00:24:51 Test Item Value Reference Range Interpretation Comments POC-GLUCOSE METER 163 mg/dL 70-110 H : TESTED A T [facility] 6720 (BEAKER) (test code [facility], = 1538) [address]: Silverware Assembler/Techni denzel ID = [id number] for SURYA LEE PHENYTOIN LEVEL, [id number] 20:14:49 Test Item Value Reference Range Interpretation Comments PHENYTOIN (DILANTIN) (BEAKER) (test 3.3 ug/mL 10.0-20.0 L code = 605) Silverware Assembler ID - JOVANY LBASIC METABOLIC [id number] 19:53:04 Test Item Value Reference Range Interpretation [...] De scription 1092) sq m Result G1 Rory l or high >=90 G2 Mildly decreased [...] not appl icable for dialysis patien ts Silverware Assembler ID - JONES [id number] 19:51:06 Test Item Value Reference Range Interpretation Comments PHOSPHORUS (BEAKER) (test code = 5.4 mg/dL 2.3-4.7 H 604) Silverware Assembler ID - JONES [id number] 19:51:05 Test Item Value Reference Range Interpretation Comments MAGNESIUM (BEAKER) (test code = 1.9 mg/dL 1.6-2.6 627) Silverware Assembler ID - JONES BPOCT-GLUCOSE [id number] 13:45:53 Test Item Value Reference Range Interpretation Comments POC-GLUCOSE METER 184 mg/dL 70-110 H : TESTED A T [facility] 6720 (BEAKER) (test code ANKIT [facility], = 1538) [address]: Silverware Assembler/Techni denzel ID = [id number] for CYNTHIA Mobley POCT-GLUCOSE [id number] 08:16:15 Test Item Value Reference Range Interpretation Comments POC-GLUCOSE METER 126 mg/dL 70-110 H : TESTED A T [facility] 6720 (BEAKER) (test code = BRANDT Mccracken [facility], 1538) [address]: Silverware Assembler/Techni denzel ID = [id number] for VICENTA BECK BASIC METABOLIC [id number] 07:25:00 Test Item Value Reference Range Interpretation [...] De scription 1092) sq m Result G1 Rory l or high >=90 G2 Mildly decreased [...] not appl icable for dialysis patien ts Silverware Assembler ID - JOVANY [id number] 07:24:14 Test Item Value Reference Range Interpretation Comments PHOSPHORUS (BEAKER) (test code = 3.9 mg/dL 2.3-4.7 604) Silverware Assembler ID - JOVANY [id number] 07:24:13 Test Item Value Reference Range Interpretation Comments MAGNESIUM (BEAKER) (test code = 2.1 mg/dL 1.6-2.6 627) Silverware Assembler ID - JOVANY LCBC (HEMOGRAM ONLY)2022-09-21 06:14:49 [...] 0-0 (BEAKER) (test code = 413) POCT-GLUCOSE [id number] 21:17:20 Test Item Value Reference Range Interpretation Comments POC-GLUCOSE METER 213 mg/dL 70-110 H : Notified RN/MD: (BEAKER) (test code = TESTED AT [facility] 1861 0553) [facility], [address]: Silverware Assembler/Techni denzel ID = [id number] for LESTER BONILLA SARS-COV2/RT-PCR ([facility])2022-09-20 18:39:44 Test Item Value Reference Range Interpretation Comments SARS-COV2/RT-PCR Negative Negative The SARS-Co V-2 target (test code = nucleic acids a re not 3487357) detected in thi s specimen. Negative result [...] revoked sooner. Fact Sheet for Healthcare Providers: https://www.Popcuts m/Documents/Xpert%20Xpress%20SARS%20CoV-2/Fact%20Sheets/178-9847%71ZZWZ-TFA-3%20 HEALTHCARE%20PROVIDERS%20FACT%20SHEET.pdf Fact Sheet for Healthcare Patients: https://www.Nduo.cn/Documents/Xpert%20Xp ress%20SARS%20CoV-2/Fact%20Sheets/814-0731%45FEHF-OQG-3%20PATIENT%20FACT%20SHEET .pdfPOCT-GLUCOSE [id number] 16:56:54 Test Item Value Reference Range Interpretation Comments POC-GLUCOSE METER 317 mg/dL 70-110 H : TESTED A T [facility] 6720 (BEAKER) (test code = [place], 1538) [address]: Silverware Assembler/Techni denzel ID = [id number] for LUTHER BENAVIDES [id number] 16:22:54 Test Item Value Reference Range Interpretation Comments PARTIAL THROMBOPLASTIN TIME 22.9 seconds 22.5-36.0 (BEAKER) (test code = 760) PROTHROMBIN TIME/[id number] 16:22:34 Test Item Value Reference Range Interpretation Comments PROTIME (BEAKER) 14.4 seconds 11.9-14.2 H (test code = 759) INR (BEAKER) (test 1.19 See_Comment [Automat ed message] code = 370) The system [employer] generated this result transmitted ref erence range: <=5.90. The reference range was not used to int erpret this result as normal/abnormal . RECOMMENDED COUMADIN/WARFARIN INR THERAPY RANGESSTANDARD DOSE: 2.0 - 3.0 Includes: PROPHYLAXIS for venous thrombosis, systemic embolization; TREATMENT for venous thrombosis and/or pulmonary embolus.HIGH RISK: Target INR is 2.5-3.5 for patients with mechanical heart valves.RAD, CHEST, 1 VIEW, NON [id number] 13:35:00Reason for exam:->preopShould this be performed at the bedside?->Yes[facility] : 1955 Sex: FFINAL REPORT RAD, CHEST, 1 VIEW, NON DEPT TECHNIQUE: Frontal view(s) of the chest. INDICATION: preop COMPARISON: None FINDINGS/IMPRESSION: Lines/Tubes: None Lungs/pleura: No focal consolidation. Suggestion of mild interstitial edema. No pleural effusion. No pneumothorax. Heart and Mediastinum: Prominent cardiac silhouette, accentuated by technique. Soft Tissues and Bones: Multilevel degenerative changes throughout the visible spine. Signed: Kedar Irby Verified Date/Time: 09/20/2022 13:35:10 Reading Location: [address] Ortho Consult Reading Room POCT-GLUCOSE [id number] 12:08:43 Test Item Value Reference Range Interpretation Comments POC-GLUCOSE METER 297 mg/dL 70-110 H : TESTED A T [facility] 6720 (BEAKER) (test code = [facility], 1538) [address]: Silverware Assembler/Techni denzel ID = [id number] for AK INSONU, LUTHER POCT-GLUCOSE [id number] 08:24:47 Test Item Value Reference Range Interpretation Comments POC-GLUCOSE METER 231 mg/dL 70-110 H : TESTED A T [facility] 6720 (BEAKER) (test code = [facility], 1538) [address]: Silverware Assembler/Techni denzel ID = [id number] for AK INSONU, LUTHER BASIC METABOLIC [id number] 07:48:48 Test Item Value Reference Range Interpretation [...] De scription 1092) sq m Result G1 Rory l or high >=90 G2 Mildly decreased [...] not appl icable for dialysis patien ts Silverware Assembler ID - [id number] 07:17:58 Test Item Value Reference Range Interpretation Comments MAGNESIUM (BEAKER) (test code = 2.1 mg/dL 1.6-2.6 627) Silverware Assembler ID - [id number] 07:17:58 Test Item Value Reference Range Interpretation Comments PHOSPHORUS (BEAKER) (test code = 4.1 mg/dL 2.3-4.7 604) Silverware Assembler ID - [id number] (HEMOGRAM ONLY)2022-09-20 06:47:52 Test [...] 0-0 (BEAKER) (test code = 413) POCT-GLUCOSE [id number] 21:30:04 Test Item Value Reference Range Interpretation Comments POC-GLUCOSE METER 73 mg/dL 70-110 : TESTED A T [facility] 6720 (BEAKER) (test code = [facility], 1538) [id number]: Silverware Assembler/Techni denzel ID = [id number] for ERIN GARCIA POCT-GLUCOSE [id number] 17:34:45 Test Item Value Reference Range Interpretation Comments POC-GLUCOSE METER 185 mg/dL 70-110 H : TESTED A T [facility] 6720 (BEAKER) (test code = [facility], 1538) 15991: Silverware Assembler/Techni denzel ID = [id number] for RO DGERS, JAMECA POCT-GLUCOSE [id number] 12:37:58 Test Item Value Reference Range Interpretation Comments POC-GLUCOSE METER 317 mg/dL 70-110 H : TESTED A T [facility] 6720 (BEAKER) (test code = [facility], 1538) 28051: Silverware Assembler/Techni denzel ID = [id number] for RO DGERS, JAMECA POCT-GLUCOSE [id number] 07:43:15 Test Item Value Reference Range Interpretation Comments POC-GLUCOSE METER 95 mg/dL 70-110 : TESTED A T [facility] 6720 (BEAKER) (test code = [facility] [facility], 1538) 8[address]: Silverware Assembler/Techni denzel ID = [id number] for RODG ERS, JAMECA BASIC METABOLIC [id number] 06:19:12 Test Item Value Reference Range Interpretation [...] De scription 1092) sq m Result G1 Rory l or high >=90 G2 Mildly decreased [...] not appl icable for dialysis patien ts Silverware Assembler ID - JOVANY [id number] 06:18:49 Test Item Value Reference Range Interpretation Comments PHOSPHORUS (BEAKER) (test code = 4.4 mg/dL 2.3-4.7 604) Silverware Assembler ID - JOVANY [id number] 06:18:48 Test Item Value Reference Range Interpretation Comments MAGNESIUM (BEAKER) (test code = 2.2 mg/dL 1.6-2.6 627) Silverware Assembler ID - JOVANY LCBC (HEMOGRAM ONLY)2022-09-19 06:02:24 [...] 0-0 (BEAKER) (test code = 413) POCT-GLUCOSE [id number] 21:23:08 Test Item Value Reference Range Interpretation Comments POC-GLUCOSE METER 165 mg/dL 70-110 H : TESTED A T [facility] 6720 (BEAKER) (test code = [facility], 1538) 20365: Silverware Assembler/Techni denzel ID = [id number] for JORGE L JAMESKONSTANTIN ERIN POCT-GLUCOSE [id number] 18:14:31 Test Item Value Reference Range Interpretation Comments POC-GLUCOSE METER 157 mg/dL 70-110 H : TESTED A T [facility] 6720 (BEAKER) (test code = [facility], 1538) 63354: Silverware Assembler/Techni denzel ID = [id number] for AK INSONU, LUTHER POCT-GLUCOSE [id number] 17:29:33 Test Item Value Reference Range Interpretation Comments POC-GLUCOSE METER 66 mg/dL 70-110 L : TESTED A T [facility] 6720 (BEAKER) (test code = [facility], 1538) 75414: Silverware Assembler/Techni denzel ID = [id number] for ECHO GABRIEL, LUTHER POCT-GLUCOSE [id number] 13:18:13 Test Item Value Reference Range Interpretation Comments POC-GLUCOSE METER 242 mg/dL 70-110 H : TESTED A T [facility] 6720 (BEAKER) (test code = [facility], 1538) 45512: Silverware Assembler/Techni denzel ID = [id number] for AK INSONU, LUTHER BASIC METABOLIC [id number] 08:13:29 Test Item Value Reference Range Interpretation [...] eGFR (test code = mL/min/1.73 values Stage D escription 1092) sq m Result G1 Rory l or high >=90 G2 Mildly decreased [...] not appl icable for dialysis patien ts Silverware Assembler ID - PRASHANTH [id number] 08:07:09 Test Item Value Reference Range Interpretation Comments PHOSPHORUS (BEAKER) 4.5 mg/dL 2.3-4.7 Specimen slightly (test code = 604) hemolyzed Silverware Assembler ID - PRASHANTH [id number] 08:07:08 Test Item Value Reference Range Interpretation Comments MAGNESIUM (BEAKER) 2.2 mg/dL 1.6-2.6 Specimen slightly (test code = 627) hemolyzed Silverware Assembler ID - PRASHANTH GPOCT-GLUCOSE [id number] 07:56:03 Test Item Value Reference Range Interpretation Comments POC-GLUCOSE METER 122 mg/dL 70-110 H : TESTED A T [facility] 6720 (BEAKER) (test code = [facility], 1538) 082[address]: Silverware Assembler/Techni denzel ID = [id number] for AK LUTHER SLOAN CBC (HEMOGRAM ONLY)2022-09-18 06:38:28 Test Item Value [...] 0-0 (BEAKER) (test code = 413) POCT-GLUCOSE [id number] 01:16:08 Test Item Value Reference Range Interpretation Comments POC-GLUCOSE METER 100 mg/dL 70-110 : TESTED A T [facility] 6720 (BEAKER) (test code = [facility], 153) 68047: Silverware Assembler/Techni denzel ID = [id number] for CELESTINO WALKER POCT-GLUCOSE [id number] 21:21:30 Test Item Value Reference Range Interpretation Comments POC-GLUCOSE METER 81 mg/dL 70-110 : TESTED A T [facility] 6720 (BEAKER) (test code = [facility], 1538) 02248: Silverware Assembler/Techni denzel ID = [id number] for GROVER MORIN ERIN POCT-GLUCOSE [id number] 16:51:20 Test Item Value Reference Range Interpretation Comments POC-GLUCOSE METER 214 mg/dL 70-110 H : TESTED A T [facility] 6720 (BEAKER) (test code = [facility], 1538) 06736: Silverware Assembler/Techni denzel ID = [id number] for Hank Roach POCT-GLUCOSE [id number] 11:20:08 Test Item Value Reference Range Interpretation Comments POC-GLUCOSE METER 290 mg/dL 70-110 H : TESTED A T [facility] 6720 (BEAKER) (test code = [facility], 1538) 55799: Silverware Assembler/Techni ednzel ID = [id number] for Glory Berger POCT-GLUCOSE [id number] 06:22:44 Test Item Value Reference Range Interpretation Comments POC-GLUCOSE METER 234 mg/dL 70-110 H : TESTED A T [facility] 6720 (BEAKER) (test code = [facility], 1538) 72217: Silverware Assembler/Techni denzel ID = [id number] for Tasha Pike HIGH SENSITIVITY TROPONIN [id number] 05:39:51 Test Item Value Reference Range Interpretation Comments HIGH SENSITIVITY 13 pg/ml See_Comment [Automated message] TROPONIN I (test code = The system which [id number]) generated this result transmitted ref erence range: <=17. Th e reference range was not used to int erpret this result as normal/abnormal . Silverware Assembler ID - MARINA WThe PHOTOGRAPHIC LABORATORY TECHNICIAN STAT High Sensitivity Troponin-I results should be used in conjunction with other diagnostic information such as ECG, clinical observations and information, and patient symptoms to aid in the diagnosis of [place].BASIC METABOLIC [id number] 05:33:24 Test Item Value Reference Range Interpretation [...] (test code = 697) EGFR (BEAKER) 24 Interpretati on of eGFR (test code = mL/min/1.73 values Stage De scription 1092) sq m Result G1 Rory l or high >=90 G2 Mildly decreased [...] not appl icable for dialysis patien ts Silverware Assembler ID - MARINA [id number] 05:29:30 Test Item Value Reference Range Interpretation Comments PHOSPHORUS (BEAKER) (test code = 4.5 mg/dL 2.3-4.7 604) Silverware Assembler ID - MARINA [id number] 05:29:29 Test Item Value Reference Range Interpretation Comments MAGNESIUM (BEAKER) (test code = 1.8 mg/dL 1.6-2.6 627) Silverware Assembler ID - MARINA WCBC (HEMOGRAM ONLY)2022-09-17 05:01:11 [...] 150-450 code = 756) MEAN PLATELET VOLUME (AKER) 9.5 fL 9.4-12.3 (test code = 754) NUCLEATED RED BLOOD CELLS 0 /100 WBC 0-0 (BEAKER) (test code = 413) POCT-GLUCOSE [id number] 21:31:41 Test Item Value Reference Range Interpretation Comments POC-GLUCOSE METER 96 mg/dL 70-110 : TESTED A T [facility] 6720 ([facility]) (test code = [facility], 1538) 19002: Silverware Assembler/Techni denzel ID = [id number] for Nikos Theodora celaya 2D Echo W/Doppler(CW/PW/Color)2022-09-16 17:24:44Ejection FractionSLEH ECHO [facility]ART[facility] W/Doppler(CW/PW/Color)2022-09-16 17:24:44Ejection FractionSLEH ECHO [facility]ART[facility] Echo W/Doppler(CW/PW/Color) 2022-09-16 17:24:44Ejection FractionSLEH ECHO [facility]ART[facility] Echo W/Doppler(CW/PW/Color)2022-09-16 17:24:44Ejection FractionSLEH ECHO HEARTLAB [facility] Echo W/Doppler(CW/PW/Color)2022-09-16 17:24:44Ejection FractionSLEH ECHO HEARTLAB [facility] Echo W/Doppler(CW/PW/Color) 2022-09-16 17:24:44Ejection FractionSLEH [facility]CHO [facility]Do[facility](CW/PW/Color)2022-09-16 17:24:44Ejection FractionSLEH ECHO HEARTLAB [facility] Echo W/Doppler(CW/PW/Color)2022-09-16 17:24:44Ejection FractionSLEH ECHO HEARTLAB [facility] [id number] 17:02:35 Test Item Value Reference Range Interpretation Comments POC-GLUCOSE METER 119 mg/dL 70-110 H : TESTED A T [facility] 6720 (BEAKER) (test code = [facility], 1538) 67897: Silverware Assembler/Techni denzel ID = [id number] for Hill Bergera POCT-GLUCOSE [id number] 11:16:52 Test Item Value Reference Range Interpretation Comments POC-GLUCOSE METER 213 mg/dL 70-110 H : TESTED A T [facility] 6720 (BEAKER) ([facility] = [facility], 1538) 23935: Silverware Assembler/Techni denzel ID = [id number] for Leslie ntkonstantin Glory [id number] 11:13:20 Test Item Value Reference Range Interpretation Comments RPR SCREEN (BEAKER) (test code = Nonreactive Nonreactive 420) POCT-GLUCOSE [id number] 07:05:53 Test Item Value Reference Range Interpretation Comments POC-GLUCOSE METER 236 mg/dL 70-110 H : TESTED A T [facility] 6720 (BEAKER) (test code = [facility], 153) 78607: Silverware Assembler/Techni denzel ID = [id number] for Theodora Boswell BASIC METABOLIC [id number] 04:30:40 Test Item Value Reference Range Interpretation [...] De scription 1092) sq m Result G1 Norm al or high >=90 G2 Mildly decreased 60-89 [...] not appl icable for dialysis patien ts Silverware Assembler ID - BSHEPATIC FUNCTION [id number] 04:26:18 Test Item Value Reference Range Interpretation [...] Specimen slightly (test code = 347) hemolyzed Silverware Assembler ID - [id number] 04:26:18 Test Item Value Reference Range Interpretation Comments PHOSPHORUS (BEAKER) 2.5 mg/dL 2.3-4.7 Specimen slightly (test code = 604) hemolyzed Silverware Assembler ID - [id number] 04:26:17 Test Item Value Reference Range Interpretation Comments MAGNESIUM (BEAKER) 1.7 mg/dL 1.6-2.6 Specimen slightly (test code = 627) hemolyzed Silverware Assembler ID - BSCBC (HEMOGRAM ONLY)2022-09-16 02:28:28 Test [...] 0-0 (BEAKER) (test code = 413) POCT-GLUCOSE [id number] 22:50:32 Test Item Value Reference Range Interpretation Comments POC-GLUCOSE METER 246 mg/dL 70-110 H : TESTED A T [facility] 6720 (BEAKER) (test code = [facility] [place], 1538) 643[address]: Silverware Assembler/Techni denzel ID = [id number] for Theodora Boswell SARS-COV2/RT-PCR ([facility])2022-09-15 19:36:17 Test Item Value Reference Range Interpretation Comments SARS-COV2/RT-PCR Negative Negative The SARS-Co V-2 target (test code = nucleic acids a re not [id number]) detected in thi s specimen. Negative result [...] revoked sooner. Fact Sheet for Healthcare Providers: https://www.[employer]/Documents/Xpert%20Xpress%20SARS%20CoV-2/Fact%20Sheets/302-3802%57BIZM-MUC-7%20 HEALTHCARE%20PROVIDERS%20FACT%20SHEET.pdf Fact Sheet for Healthcare Patients: https://www.[employer]/Documents/Xpert%20Xp ress%20SARS%20CoV-2/Fact%20Sheets/302-3801%40YBRN-TYK-0%20PATIENT%20FACT%20SHEET .pdfPOCT-GLUCOSE [id number] 16:25:06 Test Item Value Reference Range Interpretation Comments POC-GLUCOSE METER 251 mg/dL 70-110 H : TESTED A T [facility] 67 ([facility]) (test code = [facility], 1537) 68948: Silverware Assembler/Techni denzel ID = [id number] for Glory Berger POCT-GLUCOSE [id number] 11:28:54 Test Item Value Reference Range Interpretation Comments POC-GLUCOSE METER 199 mg/dL 70-110 H : Notified RN/MD: ([facility]) (test code = TESTED AT [facility] 6720 1538) [facility], [address]: Silverware Assembler/Techni denzel ID = [id number] for Tiffanie Murray BASIC METABOLIC [id number] 09:41:42 Test Item Value Reference Range Interpretation Comments SODIUM ([facility]) 141 meq/L 136-145 (test code = 381) [...] De scription 1092) sq m Result G1 Rory l or high >=90 G2 Mildly decreased [...] not appl icable for dialysis patien ts Silverware Assembler ID - toya wPOCT-GLUCOSE [id number] 07:49:03 Test Item Value Reference Range Interpretation Comments POC-GLUCOSE METER 136 mg/dL 70-110 H : TESTED A T [facility] 6720 (BEAKER) (test code = [facility], 1538) 43694: Silverware Assembler/Techni denzel ID = [id number] for Glory Berger BASIC METABOLIC [id number] 06:39:07 Test Item Value Reference Range Interpretation [...] De scription 1092) sq m Result G1 Rory l or high >=90 G2 Mildly decreased [...] not appl icable for dialysis patien ts Silverware Assembler ID - MARINA WPOCT-GLUCOSE [id number] 06:26:19 Test Item Value Reference Range Interpretation Comments POC-GLUCOSE METER 127 mg/dL 70-110 H : [facility] (test code = [facility], 1538) 47890: Silverware Assembler/Techni denzle ID = [id number] for KENNEDY PRUETT CBC W/PLT COUNT & AUTO [id number] 06:18:40 Test Item Value Reference Range Interpretation [...] PERCENT (BEAKER) (test code = 2801) POCT-GLUCOSE [id number] 05:52:16 Test Item Value Reference Range Interpretation Comments POC-GLUCOSE METER 142 mg/dL 70-110 H : TESTED A T [facility] 6720 (BEAKER) (test code = [facility] [place], 1538) 80644: Silverware Assembler/Techni denzel ID = [id number] for KENNEDY PRUETT POCT-GLUCOSE [id number] 03:49:50 Test Item Value Reference Range Interpretation Comments POC-GLUCOSE METER 238 mg/dL 70-110 H : TESTED A T [facility] 6720 (BEAKER) (test code = [facility], 1538) 60[address]: Silverware Assembler/Techni denzel ID = [id number] for KENNEDY PRUETT POCT-GLUCOSE [id number] 02:04:20 Test Item Value Reference Range Interpretation Comments POC-GLUCOSE METER 212 mg/dL 70-110 H : TESTED A T [facility] 6720 (BEAKER) (test code = [facility], 1538) 48105: Silverware Assembler/Techni denzel ID = [id number] for KENNEDY PRUETT BASIC METABOLIC [id number] 01:28:24 Test Item Value Reference Range Interpretation [...] De scription 1092) sq m Result G1 Rory l or high >=90 G2 Mildly decreased [...] not appl icable for dialysis patien ts Silverware Assembler ID - PIAYA LPOCT-GLUCOSE [id number] 00:49:40 Test Item Value Reference Range Interpretation Comments POC-GLUCOSE METER 244 mg/dL 70-110 H : TESTED A T [facility] 6720 (BEAKER) (test code = [facility], 1538) 42297: Silverware Assembler/Techni denzel ID = [id number] for KENNEDY PRUETT POCT-GLUCOSE [id number] 23:32:41 Test Item Value Reference Range Interpretation Comments POC-GLUCOSE METER 257 mg/dL 70-110 H : TESTED A T [facility] 6720 (BEAKER) (test code = [facility], 1538) 47564: Silverware Assembler/Techni denzel ID = [id number] for KENNEDY PRUETT POCT-GLUCOSE [id number] 22:23:01 Test Item Value Reference Range Interpretation Comments POC-GLUCOSE METER 243 mg/dL 70-110 H : TESTED A T [facility] 6720 (BEAKER) (test code = [facility], 1538) 88188: Silverware Assembler/Techni denzel ID = [id number] for KENNEDY PRUETT BASIC METABOLIC [id number] 22:01:35 Test Item Value Reference Range Interpretation [...] De scription 1092) sq m Result G1 Rory l or high >=90 G2 Mildly decreased [...] not appl icable for dialysis patien ts Silverware Assembler ID - MITCHPOCT-GLUCOSE [id number] 21:04:01 Test Item Value Reference Range Interpretation Comments POC-GLUCOSE METER 250 mg/dL 70-110 H : TESTED A T [facility] 6720 (BEAKER) (test code = [facility], 1538) 10046: Silverware Assembler/Techni denzel ID = [id number] for SYDNEY PRUETTA POCT-GLUCOSE [id number] 19:15:32 Test Item Value Reference Range Interpretation Comments POC-GLUCOSE METER 223 mg/dL 70-110 H : TESTED A T [facility] 6720 (BEAKER) (test code = [facility], 1538) 32860: Silverware Assembler/Techni denzel ID = [id number] for Ga rduno, Joanna POCT-GLUCOSE [id number] 18:02:59 Test Item Value Reference Range Interpretation Comments POC-GLUCOSE METER 192 mg/dL 70-110 H : TESTED A T [facility] 6720 (BEAKER) (test code = [facility], 1538) 61291: Silverware Assembler/Techni denzel ID = [id number] for Ga rduno, Joanna POCT-GLUCOSE [id number] 16:27:17 Test Item Value Reference Range Interpretation Comments POC-GLUCOSE METER 151 mg/dL 70-110 H : TESTED A T [facility] 6720 (BEAKER) (test code = [facility], 1538) 72486: Silverware Assembler/Techni denzel ID = [id number] for Ga rduno, Joanna BASIC METABOLIC [id number] 15:59:27 Test Item Value Reference Range Interpretation [...] 8.4-10.2 L (test code = 697) EGFR (FRITZAKER) 23 Interpretatio n of eGFR (test code = mL/min/1.73 values Stage De scription 1092) sq m Result G1 Rory l or high >=90 G2 Mildly decreased [...] not appl icable for dialysis patien ts Silverware Assembler ID - PIAYA LPOCT-GLUCOSE [id number] 15:40:14 Test Item Value Reference Range Interpretation Comments POC-GLUCOSE METER 169 mg/dL 70-110 H : TESTED A T [facility] 6720 (LU) (test code = [place], 1538) [address]: Silverware Assembler/Techni denzel ID = [id number] for Joanna Parks MR, BRAIN, [id number] 14:29:00STEALTH Protocol - 1mm cuts, 0 gantry, include entire head and tip of nose Unlisted Reason for Exam - Click Yes and Enter Reason Below->No Does the patient have an implanted electronic device?->No [facility] : 1955 Sex: FFINAL REPORT [...] Consequent 1.1 cm leftward midline shift. Signed: Chery Delarosa MDReport Verified Date/Time: 09/14/2022 14:29:22 [facility] METABOLIC [id number] 12:24:01 Test Item Value Reference Range Interpretation [...] De scription 1092) sq m Result G1 Rory l or high >=90 G2 Mildly decreased [...] not appl icable for dialysis patien ts Silverware Assembler ID - PIAYA LPOCT-GLUCOSE [id number] 12:23:48 Test Item Value Reference Range Interpretation Comments POC-GLUCOSE METER 222 mg/dL 70-110 H : TESTED A T [facility] 6720 (SheerID) (test code = TARSHAJIL M[facility]racken [facility], 1538) 8[address]: Silverware Assembler/Techni denzel ID = [id number] for Joanna Parks HEMOGLOBIN [id number] 12:20:51 Test Item Value Reference Range Interpretation Comments HEMOGLOBIN A1C 10.9 % See_Comment H [Automated m essage] ELECTROPHORESIS ([employer] (MXD3D)[facility]) The system which (test code = 3811) generated this result transmitted ref erence range: <=5.6%. The reference range was not used to int erpret this result as normal/abnormal . "The A1c is measured using a NGSP-certified method. HbA1c value equal to or greater than 6.5% as thediagnosis cutoff for diabetes. An HbA1c value of 5.7- 6.4% indicates increased risk for diabetes (prediabetes)."Silverware Assembler ID - ADMPOCT- GLUCOSE [id number] 11:32:38 Test Item Value Reference Range Interpretation Comments POC-GLUCOSE METER 257 mg/dL 70-110 H : TESTED A T [facility] 6720 (BEAKER) (test code = [facility] [place], 1538) [address]: Silverware Assembler/Techni denzel ID = [id number] for Joanna Parks POCT-GLUCOSE [id number] 10:32:35 Test Item Value Reference Range Interpretation Comments POC-GLUCOSE METER 268 mg/dL 70-110 H : TESTED A T [facility] 6720 (BEAKER) (test code = [facility] [place], 1538) [address]: Silverware Assembler/Techni denzel ID = [id number] for Joanna Parks BASIC METABOLIC [id number] 09:56:09 Test Item Value Reference Range Interpretation [...] De scription 1092) sq m Result G1 Rory l or high >=90 G2 Mildly decreased [...] not appl icable for dialysis patien ts Silverware Assembler ID - PIAYA LPOCT-GLUCOSE [id number] 09:36:10 Test Item Value Reference Range Interpretation Comments POC-GLUCOSE METER 288 mg/dL 70-110 H : TESTED A T [facility] 6720 ([facility]) (test code = [facility], 153) [address]: Silverware Assembler/Techni denzel ID = [id number] for Joanna Parks HEMOGLOBIN [id number] 09:09:43 Test Item Value Reference Range Interpretation Comments HEMOGLOBIN A1C 10.9 % See_Comment H [Automated m essage] ELECTROPHORESIS ([facility]) The system which (test code = 3811) generated this result transmitted ref erence range: <=5.6%. The reference range was not used to int erpret this result as normal/abnormal . "The A1c is measured using a [facility]-certified method. HbA1c value equal to or greater than 6.5% as thediagnosis cutoff for diabetes. An HbA1c value of 5.7- 6.4% indicates increased risk for diabetes (prediabetes)."Silverware Assembler ID - ADMPOCT- GLUCOSE [id number] 08:45:15 Test Item Value Reference Range Interpretation Comments POC-GLUCOSE METER 367 mg/dL 70-110 H : TESTED A [facility] 6720 ([facility]) (test code = [facility], 153) 94117: Silverware Assembler/Techni denzel ID = [id number] for Joanna Parks POCT-GLUCOSE [id number] 06:57:19 Test Item Value Reference Range Interpretation Comments POC-GLUCOSE METER 405 mg/dL 70-110 HH : Notified RN/MD: ([facility]) (test code = TESTED AT [place] [address] 153) [facility], [address]: Silverware Assembler/Techni denzel ID = [id number] for Aguila chance, Luis KETONE, [id number] 05:35:07 Test Item Value Reference Range Interpretation Comments KETONES, BLOOD ([facility]) (test code 2.8 mmol/L <0.4 H = 1103) POCT-GLUCOSE [id number] 05:23:54 Test Item Value Reference Range Interpretation Comments POC-GLUCOSE METER 388 mg/dL 70-110 H : TESTED A T [facility] 6720 ([facility]) (test code = [facility], 153) [address]88: Silverware Assembler/Techni denzel ID = [id number] for KENNEDY PRUETT POCT-GLUCOSE [id number] 04:38:49 Test Item Value Reference Range Interpretation Comments POC-GLUCOSE METER 385 mg/dL 70-110 H : TESTED Chevy Pnea [facility] 6720 (BEAKER) (test code = [facility] [place], 1538) [address]: Silverware Assembler/Techni denzel ID = [id number] for KENNEDY PRUETT COMPREHENSIVE METABOLIC [id number] 04:31:27 Test Item Value Reference Range Interpretation Comments TOTAL PROTEIN 6.9 gm/dL 6.0-8.3 Specimen sligh tly (BEAKER) (test hemolyzed code = 770) ALBUMIN (BEAKER) 3.6 g/dL 3.5-5.0 Specimen sl ightly (test code = 1145) hemolyzed ALKALINE 81 U/L 40-150 PHOSPHATASE (BEAKER) (test code = 346) BILIRUBIN TOTAL 1.0 [...] St age Description sq m Result G1 Rory l or high >=90 G2 Mildly decreased [...] not appl icable for dialysis patien ts Silverware Assembler ID - JOVANY LTSH/FREE T4 IF [id number] 04:25:39 Test Item Value Reference Range Interpretation Comments THYROID STIMULATING HORMONE 0.396 uIU/mL 0.350-4.940 (SheerID) (test code = 772) Silverware Assembler ID - JOVANY [id number] 04:25:38 Test Item Value Reference Range Interpretation Comments PROLACTIN (BEAKER) (test code = 19.94 ng/mL 5.18-26.53 758) Silverware Assembler ID - JOVANY [id number] 04:23:38 Test Item Value Reference Range Interpretation Comments D-DIMER QUANTITATIVE ([employer] ([employer])AKER) 1.68 MG/L FEU <0.50 H (test code [...] 22.5-36.0 (BEAKER) (test code = 760) PROTHROMBIN [id number] 04:20:35 Test Item Value Reference Range Interpretation Comments PROTIME (BEAKER) 13.2 seconds 11.9-14.2 (test code = 759) INR (BEAKER) (test 1.02 See_Comment [Automat ed message] code = 370) The system [employer] generated this result transmitted ref erence range: <=5.90. The reference range was not used to int erpret this result as normal/abnormal . RECOMMENDED COUMADIN/WARFARIN INR THERAPY RANGESSTANDARD DOSE: 2.0 - 3.0 Includes: PROPHYLAXIS for venous thrombosis, systemic embolization; TREATMENT for venous thrombosis and/or pulmonary embolus.HIGH RISK: Target INR is 2.5-3.5 for patients with mechanical heart valves.[id number] 04:17:39 Test Item Value Reference Range Interpretation Comments PHOSPHORUS (BEAKER) 2.8 mg/dL 2.3-4.7 Specimen slightly (test code = 604) hemolyzed Silverware Assembler ID - JOVANY LLIPID [id number] 04:17:39 Test Item Value Reference Range Interpretation [...] Borderline 130-159 High 160-189 Very High >=190 Silverware Assembler ID - JOVANY [id number] 04:17:38 Test Item Value Reference Range Interpretation Comments MAGNESIUM (BEAKER) 1.9 mg/dL 1.6-2.6 Specimen slightly (test code = 627) hemolyzed Silverware Assembler ID - JOVANY LCBC W/PLT COUNT & AUTO [id number] 04:13:13 Test Item Value Reference Range Interpretation [...] (BEAKER) (test code = 2801) LACTIC ACID, [id number] 04:00:33 Test Item Value Reference Range Interpretation Comments LACTATE BLOOD VENOUS 1.98 mmol/L 0.50-2.20 Specime n markedly (2) (BEAKER) (test hemolyzed code = 2431) Silverware Assembler ID - JOVANY LBLOOD GAS, [id number] 03:45:20 Test Item Value Reference Range Interpretation [...] (BEAKER) (test code = 1819) 21.0 POCT-GLUCOSE [id number] 03:19:46 Test Item Value Reference Range Interpretation Comments POC-GLUCOSE METER 385 mg/dL 70-110 H : TESTED A T [facility] 6720 (BEAKER) (test code = BRANDT Mccracken [facility], 1538) [address]: Silverware Assembler/Techni denzel ID = [id number] for KENNEDY PRUETT POCT GLUCOSE (AUTOMATED)2022-05-14 14:58:51 Test Item Value Reference Range Interpretation Comments POCT GLU (test code = 2571791387) 162 mg/dL 70-110 H Lab Interpretation (test code = Abnormal 22688-0) [facility] GLUCOSE (AUTOMATED)2022-05-14 14:58:51 Test Item Value Reference Range Interpretation Comments POCT GLU (test code = 5064604471) 162 mg/dL 70-110 H Lab Interpretation (test code = Abnormal 70044-6) [facility] [id number] 14:56:00 Test Item Value Reference Range Interpretation Comments POCT Glu (age>30days) (test code = 162 mg/dL 70-110 A 3342) Lab Interpretation (test code = Abnormal 16377-5) [facility] [id number] 14:56:00 Test Item Value Reference Range Interpretation Comments POCT Glu (age>30days) (test code = 162 mg/dL 70-110 A 3342) Lab Interpretation (test code = Abnormal 67871-4) [facility] [id number] 16:31:11 Test Item Value Reference Interpretation Comments Range TROPONIN I (test 0.010 ng/mL See_Comment [Automated code = 7973420713) message] The system which generated this result [...] biotin. Lab Interpretation Normal (test code = 62746-5) [facility]2022-[facility]-14 16:19:48 Test Item Value Reference Range Interpretation Comments MAGNESIUM (test code = 2777289407) 1.8 mg/dL 1.7-2.4 Lab Interpretation (test code = Normal 41957-1) [facility]. METABOLIC PANEL (12448)2022-02-01 16:19:28 Test Item Value Reference Range Interpretation Comments NA (test code = 138 mmol/L 135-145 6318599839) K (test code = 3.5 mmol/L 3.5-5.0 0416277517) CL (test code = 98 mmol/L 98-108 3794189714) CO2 TOTAL (test code = 30 mmol/L 23-31 3206658790) AGAP (test code = 2-16 9643425266) BUN (test code = 30 mg/dL 7-23 H 2908751709) GLUCOSE (test code = 189 mg/dL 70-110 H 0505985694) CREATININE (test code = 2.03 mg/dL 0.50-1.04 H 0469830899) TOTAL BILI (test code = 1.1 mg/dL 0.1-1.0 0533044834) CALCIUM (test code = 9.4 mg/dL 8.6-10.6 7233899908) T PROTEIN (test code = 7.2 g/dL 6.3-8.2 6166953247) ALBUMIN (test code = 4.2 g/dL 3.5-5.0 0478720606) ALK PHOS (test code = 85 U/L 34-122 9781778324) ALTv (test code = 37 U/L 5-35 H 2-6) AST(SGOT) (test code = 29 U/L 13-40 3893698556) eGFR (test code = mL/min/1.73m2 6127827743) SONIYA (test code = SONIYA) Association of [...] tests). Lab Interpretation Abnormal (test code = 52449-4) [facility]22-[facility]14 16:19:08 Test Item Value Reference Range Interpretation Comments LIPASE (test code = 8170350275) 200 U/L 0-220 Lab Interpretation (test code = Normal 92937-9) [facility] WITH [id number] 16:04:08 Test Item Value Reference Range Interpretation Comments WBC (test code = See_Comment [Automated 6690-2) message] The sy stem which generated this result transmitted reference range : 4.30 - 11.10 10*3/?L. The reference range was not used to interpret this result as normal/abnormal . RBC (test code = See_Comment [Automated 789-8) message] The sy stem which generated this [...] RDW-SD (test code = 41.2 fL 39.0-49.9 37337-2) RDW-CV (test code = 14.2 % 12.0-15.5 788-0) PLT (test code = See_Comment [Automated 777-3) message] The sy stem which generated this result transmitted reference range : 166 - 358 10*3/ ?L. The reference r bridget was not used to interpret this result as normal/abnormal . MPV (test code = 9.1 fL 9.5-12.9 L 75531-1) NRBC/100 WBC (test See_Comment [Automat ed code = 5877335133) message] The system which generated this result transmitted reference range : 0.0 - 10.0 /100 WBCs. The refer ence range was not u sed to interpret th is result as normal/abnormal . NRBC x10^3 (test code <0.01 See_Comment [Auto mated = 6366151831) message] The s ystem which generated this result transmitted reference range : 10*3/?L. The reference range was not used to interpret this result as normal/abnormal . GRAN MAT (NEUT) % 60.5 % (test code = 770-8) IMM GRAN % (test code 0.40 % = 1359537552) LYMPH % (test code = 31.2 % 736-9) MONO % (test code = 4.8 % 5905-5) EOS % (test code = 2.7 % 713-8) BASO % (test code = 0.4 % 706-2) GRAN MAT x10^3(ANC) 4.30 10*3/uL 1.88-7.09 (test code = 9157552220) IMM GRAN x10^3 (test 0.03 10*3/uL 0.00-0.06 code = 4907138777) LYMPH x10^3 (test code 2.22 10*3/uL 1.32-3.29 = 731-0) MONO x10^3 (test code 0.34 10*3/uL 0.33-0.92 = 742-7) EOS x10^3 (test code = 0.19 10*3/uL 0.03-0.39 711-2) BASO x10^3 (test code 0.03 10*3/uL 0.01-0.07 = 704-7) Lab Interpretation Abnormal (test code = 63759-6) [facility] FallsHEMOGLOBIN [id number] 06:39:55 Test Item Value Reference Range Interpretation Comments HEMOGLOBIN A1c (test 9.6 % 4.2-5.6 H AMERIC AN DIABETES code = 80952) ASSOCIATION IDELINES FOR HGB A1C: PREDIABETES/INC REASED [...] INDICATED, ALL TESTING PER FORMED ATCLINICAL PATH OLOGY LABORATORIES, [place]. [address], [place] [address] LABORATORY DIRE CTOR: JANEEN LINDO M.D. CLIA NUMBER [id number] [place]. [id number] HEMOGLOBIN [id number] 00:00:00 Test Item Value Reference Range Interpretation Comments HEMOGLOBIN A1c (test code = 00726) 9.6 % HEMOGLOBIN [id number] 00:00:00 Test Item Value Reference Range Interpretation Comments HEMOGLOBIN A1c (test code = 58808) 9.6 % HEMOGLOBIN [id number] 00:00:00 Test Item Value Reference Range Interpretation Comments HEMOGLOBIN A1c (test code = 63282) 9.6 % HEMOGLOBIN [id number] 00:00:00 Test Item Value Reference Range Interpretation Comments HEMOGLOBIN A1c (test code = 34418) 9.6 % HEMOGLOBIN [id number] 00:00:00 Test Item Value Reference Range Interpretation Comments HEMOGLOBIN A1c (test code = 17970) 9.6 % HEMOGLOBIN [id number] 00:00:00 Test Item Value Reference Range Interpretation Comments HEMOGLOBIN A1c (test code = 90477) 9.6 % HEMOGLOBIN [id number] 00:00:00 Test Item Value Reference Range Interpretation Comments HEMOGLOBIN A1c (test code = 31765) 9.6 % HEMOGLOBIN [id number] 00:00:00 Test Item Value Reference Range Interpretation Comments HEMOGLOBIN A1c (test code = 49622) 9.6 % HEMOGLOBIN [id number] 00:00:00 Test Item Value Reference Range Interpretation Comments HEMOGLOBIN A1c (test code = 17142) 9.6 % HEMOGLOBIN [id number] 00:00:00 Test Item Value Reference Range Interpretation Comments HEMOGLOBIN A1c (test code = 28497) 9.6 % HEMOGLOBIN [id number] 00:00:00 Test Item Value Reference Range Interpretation Comments HEMOGLOBIN A1c (test code = 74522) 9.6 % HEMOGLOBIN [id number] 00:00:00 Test Item Value Reference Range Interpretation Comments HEMOGLOBIN A1c (test code = 28829) 9.6 % HEMOGLOBIN [id number] 06:06:01 Test Item Value Reference Range Interpretation Comments HEMOGLOBIN A1c (test 9.8 % 4.2-5.6 H AMERIC AN DIABETES code = 65110) ASSOCIATION IDELINES FOR HGB A1C: PREDIABETES/INC REASED [...] ATE TESTING OR LABORATORY C ONSULTATION. LIPID [id number] 04:28:41 Test Item Value Reference Range Interpretation [...] MOREINFORMATION , SEE CLIENT ANNOUNCE MENT AT [email or web address] RISK RATIO LDL/HDL 2.90 RATIO <3.22 (test code = 2238) COMPREHENSIVE METABOLIC [id number] 04:28:41 Test Item Value Reference Range Interpretation Comments GLUCOSE (test code = 163 MG/DL 70-99 H 2216) BUN (test code = 24 MG/DL 8-23 H 2207) CREATININE (test 1.84 MG/DL 0.60-1.30 H EFFECTIVE code = 2214) 09/02/2021, [facility] HAS IMPLEMENTED THE NKF-ASN RECOMME NDED KD-EPI EGF R REFIT CALCULATI ON THAT DOES NOT I NCLUDE A COEFFICIENT FORRACE. FOR MO RE INFORMATION, SE E ANNOUNCEMENT [email or web address] eGFR (2020 CKD-EPI) 30 >60 L (test code = 89215) ML/MIN/1.73 CALC BUN/CREAT (test 13 RATIO 6-28 code = 2235) SODIUM (test code = 144 MEQ/L 069-273 3688) POTASSIUM (test code 3.6 MEQ/L 3.5-5.4 = 2227) CHLORIDE (test code 103 MEQ/L 95-107 = [...] PHOSPHATASE 93 U/L 40-140 (test code = 220) AST (test code = 23 U/L 9-40 2217) ALT (test code = 30 U/L 5-40 UNLESS OTH ERWISE 2218) INDICATED, ALL TESTING PERFORM ED ATCLINICAL PATH OLOG LABORATORIES, [facility]. [address] [place] [id number] [place] [address] DIRECTOR: JANEEN LINDO M.D. CLIA NUMBER [id number] CAP ACCREDITATION N O. [id number] HEMOGLOBIN [id number] 00:00:00 Test Item Value Reference Range Interpretation Comments HEMOGLOBIN A1c (test code = 47346) 9.8 % HEMOGLOBIN [id number] 00:00:00 Test Item Value Reference Range Interpretation Comments HEMOGLOBIN A1c (test code = 35954) 9.8 % HEMOGLOBIN [id number] 00:00:00 Test Item Value Reference Range Interpretation Comments HEMOGLOBIN A1c (test code = 12711) 9.8 % LIPID [id number] 00:00:00 Test Item Value Reference Range Interpretation Comments CHOLESTEROL (test code = 2210) 177 MG/DL TRIGLYCERIDES (test code = 2232) 135 MG/DL HDL CHOLESTEROL (test code = 2220) 39 MG/DL CALC LDL CHOL (test code = 2237) 113 MG/DL RISK RATIO LDL/HDL (test code = 2.90 RATIO 2238) LIPID [id number] 00:00:00 Test Item Value Reference Range Interpretation Comments CHOLESTEROL (test code = 2210) 177 MG/DL TRIGLYCERIDES (test code = 2232) 135 MG/DL HDL CHOLESTEROL (test code = 2220) 39 MG/DL CALC LDL CHOL (test code = 2237) 113 MG/DL RISK RATIO LDL/HDL (test code = 2.90 RATIO 2238) COMPREHENSIVE METABOLIC [id number] 00:00:00 Test Item Value Reference Range Interpretation Comments GLUCOSE (test code = 2217) 163 MG/DL BUN (test code = 2208) 24 MG/DL CREATININE (test code = 2214) 1.84 MG/DL eGFR (2020 CKD-EPI) (test code 30 ML/MIN/1.73 = 33240) CALC BUN/CREAT (test code = 13 RATIO [...] code = 2219) 30 U/L COMPREHENSIVE METABOLIC [id number] 00:00:00 Test Item Value Reference Range Interpretation Comments GLUCOSE (test code = 2217) 163 MG/DL BUN (test code = 2208) 24 MG/DL CREATININE (test code = 2214) 1.84 MG/DL eGFR (2020 CKD-EPI) (test code 30 ML/MIN/1.73 = 34411) CALC BUN/CREAT (test code = 13 RATIO [...] (test code = 2219) 30 U/L HEMOGLOBIN [id number] 00:00:00 Test Item Value Reference Range Interpretation Comments HEMOGLOBIN A1c (test code = 79426) 9.8 % HEMOGLOBIN [id number] 00:00:00 Test Item Value Reference Range Interpretation Comments HEMOGLOBIN A1c (test code = 97852) 9.8 % HEMOGLOBIN [id number] 00:00:00 Test Item Value Reference Range Interpretation Comments HEMOGLOBIN A1c (test code = 39508) 9.8 % LIPID [id number] 00:00:00 Test Item Value Reference Range Interpretation Comments CHOLESTEROL (test code = 2210) 177 MG/DL TRIGLYCERIDES (test code = 2232) 135 MG/DL HDL CHOLESTEROL (test code = 2220) 39 MG/DL CALC LDL CHOL (test code = 2237) 113 MG/DL RISK RATIO LDL/HDL (test code = 2.90 RATIO 2238) LIPID [id number] 00:00:00 Test Item Value Reference Range Interpretation Comments CHOLESTEROL (test code = 2210) 177 MG/DL TRIGLYCERIDES (test code = 2232) 135 MG/DL HDL CHOLESTEROL (test code = 2220) 39 MG/DL CALC LDL CHOL (test code = 2237) 113 MG/DL RISK RATIO LDL/HDL (test code = 2.90 RATIO 2238) COMPREHENSIVE METABOLIC [id number] 00:00:00 Test Item Value Reference Range Interpretation Comments GLUCOSE (test code = 2217) 163 MG/DL BUN (test code = 2208) 24 MG/DL CREATININE (test code = 2214) 1.84 MG/DL eGFR (2020 CKD-EPI) (test code 30 ML/MIN/1.73 = 12380) CALC BUN/CREAT (test code = 13 RATIO 2235) SODIUM (test code = 2231) 144 MEQ/L POTASSIUM (test code = 2228) 3.6 MEQ/L CHLORIDE (test code = 2215) 103 MEQ/L CARBON DIOXIDE (test code = 29 MEQ/L 2206) CALCIUM (test code = 2209) 9.6 MG/DL PROTEIN, TOTAL (test code = 7.2 G/DL 222) ALBUMIN (test code = 2201) 4.2 G/DL CALC GLOBULIN (test code = 3.0 G/DL 2240) CALC A/G RATIO (test code = 1.4 RATIO 2234) BILIRUBIN, TOTAL (test code = 0.9 MG/DL 2206) ALKALINE PHOSPHATASE (test 93 U/L code = 2204) AST (test code = 2218) 23 U/L ALT (test code = 2219) 30 U/L COMPREHENSIVE METABOLIC [id number] 00:00:00 Test Item Value Reference Range Interpretation Comments GLUCOSE (test code = 2217) 163 MG/DL BUN (test code = 2208) 24 MG/DL CREATININE (test code = 2214) 1.84 MG/DL eGFR (2020 CKD-EPI) (test code 30 ML/MIN/1.73 = 13581) CALC BUN/CREAT (test code = 13 RATIO 2235) SODIUM (test code = 2231) 144 MEQ/L POTASSIUM (test code = 2228) 3.6 MEQ/L CHLORIDE (test code = 2215) 103 MEQ/L CARBON DIOXIDE (test code = 29 MEQ/L 2206) CALCIUM (test code = 2209) 9.6 MG/DL PROTEIN, TOTAL (test code = 7.2 G/DL 2229) ALBUMIN (test code = 2201) 4.2 G/DL CALC GLOBULIN (test code = 3.0 G/DL 2240) CALC A/G RATIO (test code = 1.4 RATIO 2234) BILIRUBIN, TOTAL (test code = 0.9 MG/DL 220) ALKALINE PHOSPHATASE (test 93 U/L code = 2204) AST (test code = 2218) 23 U/L ALT (test code = 2219) 30 U/L HEMOGLOBIN [id number] 00:00:00 Test Item Value Reference Range Interpretation Comments HEMOGLOBIN A1c (test code = 52559) 9.8 % HEMOGLOBIN [id number] 00:00:00 Test Item Value Reference Range Interpretation Comments HEMOGLOBIN A1c (test code = 55518) 9.8 % HEMOGLOBIN [id number] 00:00:00 Test Item Value Reference Range Interpretation Comments HEMOGLOBIN A1c (test code = 93496) 9.8 % LIPID [id number] 00:00:00 Test Item Value Reference Range Interpretation Comments CHOLESTEROL (test code = 2210) 177 MG/DL TRIGLYCERIDES (test code = 2232) 135 MG/DL HDL CHOLESTEROL (test code = 2220) 39 MG/DL CALC LDL CHOL (test code = 2237) 113 MG/DL RISK RATIO LDL/HDL (test code = 2.90 RATIO 2238) LIPID [id number] 00:00:00 Test Item Value Reference Range Interpretation Comments CHOLESTEROL (test code = 2210) 177 MG/DL TRIGLYCERIDES (test code = 2232) 135 MG/DL HDL CHOLESTEROL (test code = 2220) 39 MG/DL CALC LDL CHOL (test code = 2237) 113 MG/DL RISK RATIO LDL/HDL (test code = 2.90 RATIO 2238) COMPREHENSIVE METABOLIC [id number] 00:00:00 Test Item Value Reference Range Interpretation Comments GLUCOSE (test code = 2217) 163 MG/DL BUN (test code = 2208) 24 MG/DL CREATININE (test code = 2214) 1.84 MG/DL eGFR (2020 CKD-EPI) (test code 30 ML/MIN/1.73 = 75433) CALC BUN/CREAT (test code = 13 RATIO [...] BILIRUBIN, TOTAL (test code = 0.9 MG/DL 2207) ALKALINE PHOSPHATASE (test 93 U/L code = 2204) AST (test code = 2218) 23 U/L ALT (test code = 2219) 30 U/L COMPREHENSIVE METABOLIC [id number] 00:00:00 Test Item Value Reference Range Interpretation Comments GLUCOSE (test code = 2217) 163 MG/DL BUN (test code = 2208) 24 MG/DL CREATININE (test code = 2214) 1.84 MG/DL eGFR (2020 CKD-EPI) (test code 30 ML/MIN/1.73 = 93288) CALC BUN/CREAT (test code = 13 RATIO [...] (test code = 2219) 30 U/L HEMOGLOBIN [id number] 00:00:00 Test Item Value Reference Range Interpretation Comments HEMOGLOBIN A1c (test code = 89356) 9.8 % HEMOGLOBIN [id number] 00:00:00 Test Item Value Reference Range Interpretation Comments HEMOGLOBIN A1c (test code = 05903) 9.8 % HEMOGLOBIN [id number] 00:00:00 Test Item Value Reference Range Interpretation Comments HEMOGLOBIN A1c (test code = 78898) 9.8 % LIPID [id number] 00:00:00 Test Item Value Reference Range Interpretation Comments CHOLESTEROL (test code = 2210) 177 MG/DL TRIGLYCERIDES (test code = 2232) 135 MG/DL HDL CHOLESTEROL (test code = 2220) 39 MG/DL CALC LDL CHOL (test code = 2237) 113 MG/DL RISK RATIO LDL/HDL (test code = 2.90 RATIO 2238) LIPID [id number] 00:00:00 Test Item Value Reference Range Interpretation Comments CHOLESTEROL (test code = 2210) 177 MG/DL TRIGLYCERIDES (test code = 2232) 135 MG/DL HDL CHOLESTEROL (test code = 2220) 39 MG/DL CALC LDL CHOL (test code = 2237) 113 MG/DL RISK RATIO LDL/HDL (test code = 2.90 RATIO 2238) COMPREHENSIVE METABOLIC [id number] 00:00:00 Test Item Value Reference Range Interpretation Comments GLUCOSE (test code = 2217) 163 MG/DL BUN (test code = 2208) 24 MG/DL CREATININE (test code = 2214) 1.84 MG/DL eGFR (2020 CKD-EPI) (test code 30 ML/MIN/1.73 = 20578) CALC BUN/CREAT (test code = 13 RATIO [...] code = 2219) 30 U/L COMPREHENSIVE METABOLIC [id number] 00:00:00 Test Item Value Reference Range Interpretation Comments GLUCOSE (test code = 2217) 163 MG/DL BUN (test code = 2208) 24 MG/DL CREATININE (test code = 2214) 1.84 MG/DL eGFR (2020 CKD-EPI) (test code 30 ML/MIN/1.73 = 67815) CALC BUN/CREAT (test code = 13 RATIO [...] (test code = 2219) 30 U/L HEMOGLOBIN [id number] 00:00:00 Test Item Value Reference Range Interpretation Comments HEMOGLOBIN A1c (test code = 16716) 9.1 % HEMOGLOBIN [id number] 00:00:00 Test Item Value Reference Range Interpretation Comments HEMOGLOBIN A1c (test code = 97483) 9.1 % HEMOGLOBIN [id number] 00:00:00 Test Item Value Reference Range Interpretation Comments HEMOGLOBIN A1c (test code = 77049) 9.1 % HEMOGLOBIN [id number] 00:00:00 Test Item Value Reference Range Interpretation Comments HEMOGLOBIN A1c (test code = 65357) 9.1 % HEMOGLOBIN [id number] 00:00:00 Test Item Value Reference Range Interpretation Comments HEMOGLOBIN A1c (test code = 81647) 9.1 % HEMOGLOBIN [id number] 00:00:00 Test Item Value Reference Range Interpretation Comments HEMOGLOBIN A1c (test code = 79883) 9.1 % HEMOGLOBIN [id number] 00:00:00 Test Item Value Reference Range Interpretation Comments HEMOGLOBIN A1c (test code = 71454) 9.1 % HEMOGLOBIN [id number] 00:00:00 Test Item Value Reference Range Interpretation Comments HEMOGLOBIN A1c (test code = 46560) 9.1 % HEMOGLOBIN [id number] 00:00:00 Test Item Value Reference Range Interpretation Comments HEMOGLOBIN A1c (test code = 13228) 9.1 % HEMOGLOBIN [id number] 00:00:00 Test Item Value Reference Range Interpretation Comments HEMOGLOBIN A1c (test code = 86682) 9.1 % HEMOGLOBIN [id number] 00:00:00 Test Item Value Reference Range Interpretation Comments HEMOGLOBIN A1c (test code = 17501) 9.1 % HEMOGLOBIN [id number] 00:00:00 Test Item Value Reference Range Interpretation Comments HEMOGLOBIN A1c (test code = 06874) 9.1 % HEMOGLOBIN [id number] 00:00:00 Test Item Value Reference Range Interpretation Comments HEMOGLOBIN A1c (test code = 83580) 9.5 % HEMOGLOBIN [id number] 00:00:00 Test Item Value Reference Range Interpretation Comments HEMOGLOBIN A1c (test code = 56920) 9.5 % HEMOGLOBIN [id number] 00:00:00 Test Item Value Reference Range Interpretation Comments HEMOGLOBIN A1c (test code = 27243) 9.5 % HEMOGLOBIN [id number] 00:00:00 Test Item Value Reference Range Interpretation Comments HEMOGLOBIN A1c (test code = 31161) 9.5 % HEMOGLOBIN [id number] 00:00:00 Test Item Value Reference Range Interpretation Comments HEMOGLOBIN A1c (test code = 23601) 9.5 % HEMOGLOBIN [id number] 00:00:00 Test Item Value Reference Range Interpretation Comments HEMOGLOBIN A1c (test code = 81949) 9.5 % HEMOGLOBIN [id number] 00:00:00 Test Item Value Reference Range Interpretation Comments HEMOGLOBIN A1c (test code = 22394) 9.5 % HEMOGLOBIN [id number] 00:00:00 Test Item Value Reference Range Interpretation Comments HEMOGLOBIN A1c (test code = 30425) 9.5 % HEMOGLOBIN [id number] 00:00:00 Test Item Value Reference Range Interpretation Comments HEMOGLOBIN A1c (test code = 84835) 9.5 % HEMOGLOBIN [id number] 00:00:00 Test Item Value Reference Range Interpretation Comments HEMOGLOBIN A1c (test code = 35713) 9.5 % HEMOGLOBIN [id number] 00:00:00 Test Item Value Reference Range Interpretation Comments HEMOGLOBIN A1c (test code = 24794) 9.5 % HEMOGLOBIN [id number] 00:00:00 Test Item Value Reference Range Interpretation Comments HEMOGLOBIN A1c (test code = 83175) 9.5 % HEMOGLOBIN [id number] 00:00:00 Test Item Value Reference Range Interpretation Comments HEMOGLOBIN A1c (test code = 04959) 8.8 % HEMOGLOBIN [id number] 00:00:00 Test Item Value Reference Range Interpretation Comments HEMOGLOBIN A1c (test code = 23091) 8.8 % HEMOGLOBIN [id number] 00:00:00 Test Item Value Reference Range Interpretation Comments HEMOGLOBIN A1c (test code = 47794) 8.8 % LIPID [id number] 00:00:00 Test Item Value Reference Range Interpretation Comments CHOLESTEROL (test code = 2210) 139 MG/DL TRIGLYCERIDES (test code = 2232) 108 MG/DL HDL CHOLESTEROL (test code = 2220) 42 MG/DL CALC LDL CHOL (test code = 2237) 75 MG/DL RISK RATIO LDL/HDL (test code = 1.80 RATIO 2238) LIPID [id number] 00:00:00 Test Item Value Reference Range Interpretation Comments CHOLESTEROL (test code = 2210) 139 MG/DL TRIGLYCERIDES (test code = 2232) 108 MG/DL HDL CHOLESTEROL (test code = 2220) 42 MG/DL CALC LDL CHOL (test code = 2237) 75 MG/DL RISK RATIO LDL/HDL (test code = 1.80 RATIO 2238) COMPREHENSIVE METABOLIC [id number] 00:00:00 Test Item Value Reference Range Interpretation Comments GLUCOSE (test code = 2217) 196 MG/DL BUN (test code = 2208) 23 MG/DL CREATININE (test code = 2214) 1.70 MG/DL eGFR AMER. (test code 37 ML/MIN/1.73 = 15714) eGFR NON- AMER. (test 32 ML/MIN/1.73 code = 70965) CALC BUN/CREAT (test code = 14 RATIO [...] code = 2219) 18 U/L COMPREHENSIVE METABOLIC [id number] 00:00:00 Test Item Value Reference Range Interpretation Comments GLUCOSE (test code = 2217) 196 MG/DL BUN (test code = 2208) 23 MG/DL CREATININE (test code = 2214) 1.70 MG/DL eGFR AMER. (test code 37 ML/MIN/1.73 = 99073) eGFR NON- AMER. (test 32 ML/MIN/1.73 code = 10168) CALC BUN/CREAT (test code = 14 RATIO [...] (test code = 2219) 18 U/L HEMOGLOBIN [id number] 00:00:00 Test Item Value Reference Range Interpretation Comments HEMOGLOBIN A1c (test code = 20462) 8.8 % HEMOGLOBIN [id number] 00:00:00 Test Item Value Reference Range Interpretation Comments HEMOGLOBIN A1c (test code = 21460) 8.8 % HEMOGLOBIN [id number] 00:00:00 Test Item Value Reference Range Interpretation Comments HEMOGLOBIN A1c (test code = 94648) 8.8 % LIPID [id number] 00:00:00 Test Item Value Reference Range Interpretation Comments CHOLESTEROL (test code = 2210) 139 MG/DL TRIGLYCERIDES (test code = 2232) 108 MG/DL HDL CHOLESTEROL (test code = 2220) 42 MG/DL CALC LDL CHOL (test code = 2237) 75 MG/DL RISK RATIO LDL/HDL (test code = 1.80 RATIO 2238) LIPID [id number] 00:00:00 Test Item Value Reference Range Interpretation Comments CHOLESTEROL (test code = 2210) 139 MG/DL TRIGLYCERIDES (test code = 2232) 108 MG/DL HDL CHOLESTEROL (test code = 2220) 42 MG/DL CALC LDL CHOL (test code = 2237) 75 MG/DL RISK RATIO LDL/HDL (test code = 1.80 RATIO 2238) COMPREHENSIVE METABOLIC [id number] 00:00:00 Test Item Value Reference Range Interpretation Comments GLUCOSE (test code = 2217) 196 MG/DL BUN (test code = 2208) 23 MG/DL CREATININE (test code = 2214) 1.70 MG/DL eGFR AMER. (test code 37 ML/MIN/1.73 = 72543) eGFR NON- AMER. (test 32 ML/MIN/1.73 code = 46735) CALC BUN/CREAT (test code = 14 RATIO [...] CALC GLOBULIN (test code = 3.2 G/DL 0) CALC A/G RATIO (test code = 1.4 RATIO 4) BILIRUBIN, TOTAL (test code = 0.8 MG/DL 2206) ALKALINE PHOSPHATASE (test 101 U/L code = 2204) AST (test code = 2218) 16 U/L ALT (test code = 2219) 18 U/L COMPREHENSIVE METABOLIC [id number] 00:00:00 Test Item Value Reference Range Interpretation Comments GLUCOSE (test code = 2217) 196 MG/DL BUN (test code = 2208) 23 MG/DL CREATININE (test code = 2214) 1.70 MG/DL eGFR AMER. (test code 37 ML/MIN/1.73 = 88108) eGFR NON- AMER. (test 32 ML/MIN/1.73 code = 34629) CALC BUN/CREAT (test code = 14 RATIO [...] (test code = 2219) 18 U/L HEMOGLOBIN [id number] 00:00:00 Test Item Value Reference Range Interpretation Comments HEMOGLOBIN A1c (test code = 81232) 8.8 % HEMOGLOBIN [id number] 00:00:00 Test Item Value Reference Range Interpretation Comments HEMOGLOBIN A1c (test code = 11281) 8.8 % HEMOGLOBIN [id number] 00:00:00 Test Item Value Reference Range Interpretation Comments HEMOGLOBIN A1c (test code = 83907) 8.8 % LIPID [id number] 00:00:00 Test Item Value Reference Range Interpretation Comments CHOLESTEROL (test code = 2210) 139 MG/DL TRIGLYCERIDES (test code = 2232) 108 MG/DL HDL CHOLESTEROL (test code = 2220) 42 MG/DL CALC LDL CHOL (test code = 2237) 75 MG/DL RISK RATIO LDL/HDL (test code = 1.80 RATIO 2238) LIPID [id number] 00:00:00 Test Item Value Reference Range Interpretation Comments CHOLESTEROL (test code = 2210) 139 MG/DL TRIGLYCERIDES (test code = 2232) 108 MG/DL HDL CHOLESTEROL (test code = 2220) 42 MG/DL CALC LDL CHOL (test code = 2237) 75 MG/DL RISK RATIO LDL/HDL (test code = 1.80 RATIO 2238) COMPREHENSIVE METABOLIC [id number] 00:00:00 Test Item Value Reference Range Interpretation Comments GLUCOSE (test code = 2217) 196 MG/DL BUN (test code = 2208) 23 MG/DL CREATININE (test code = 2214) 1.70 MG/DL eGFR AMER. (test code 37 ML/MIN/1.73 = 31618) eGFR NON- AMER. (test 32 ML/MIN/1.73 code = 51821) CALC BUN/CREAT (test code = 14 RATIO 2235) SODIUM (test code = 2231) 145 MEQ/L POTASSIUM (test code = 2228) 4.6 MEQ/L CHLORIDE (test code = 2215) 104 MEQ/L CARBON DIOXIDE (test code = 26 MEQ/L 2206) CALCIUM (test code = 2209) 9.8 MG/DL PROTEIN, TOTAL (test code = 7.8 G/DL 222) ALBUMIN (test code = 2201) 4.6 G/DL CALC GLOBULIN (test code = 3.2 G/DL 2240) CALC A/G RATIO (test code = 1.4 RATIO 2234) BILIRUBIN, TOTAL (test code = 0.8 MG/DL 2206) ALKALINE PHOSPHATASE (test 101 U/L code = 220) AST (test code = 2218) 16 U/L ALT (test code = 2219) 18 U/L COMPREHENSIVE METABOLIC [id number] 00:00:00 Test Item Value Reference Range Interpretation Comments GLUCOSE (test code = 2217) 196 MG/DL BUN (test code = 2208) 23 MG/DL CREATININE (test code = 2214) 1.70 MG/DL eGFR AMER. (test code 37 ML/MIN/1.73 = 43386) eGFR NON- AMER. (test 32 ML/MIN/1.73 code = 25033) CALC BUN/CREAT (test code = 14 RATIO 2235) SODIUM (test code = 2231) 145 MEQ/L POTASSIUM (test code = 2228) 4.6 MEQ/L CHLORIDE (test code = 2215) 104 MEQ/L CARBON DIOXIDE (test code = 26 MEQ/L 2206) CALCIUM (test code = 2209) 9.8 MG/DL PROTEIN, TOTAL (test code = 7.8 G/DL 9) ALBUMIN (test code = 2201) 4.6 G/DL CALC GLOBULIN (test code = 3.2 G/DL 2240) CALC A/G RATIO (test code = 1.4 RATIO 2234) BILIRUBIN, TOTAL (test code = 0.8 MG/DL 2206) ALKALINE PHOSPHATASE (test 101 U/L code = 2204) AST (test code = 2218) 16 U/L ALT (test code = 2219) 18 U/L HEMOGLOBIN [id number] 00:00:00 Test Item Value Reference Range Interpretation Comments HEMOGLOBIN A1c (test code = 10702) 8.8 % HEMOGLOBIN [id number] 00:00:00 Test Item Value Reference Range Interpretation Comments HEMOGLOBIN A1c (test code = 92141) 8.8 % HEMOGLOBIN [id number] 00:00:00 Test Item Value Reference Range Interpretation Comments HEMOGLOBIN A1c (test code = 02326) 8.8 % LIPID [id number] 00:00:00 Test Item Value Reference Range Interpretation Comments CHOLESTEROL (test code = 2210) 139 MG/DL TRIGLYCERIDES (test code = 2232) 108 MG/DL HDL CHOLESTEROL (test code = 2220) 42 MG/DL CALC LDL CHOL (test code = 2237) 75 MG/DL RISK RATIO LDL/HDL (test code = 1.80 RATIO 2238) LIPID [id number] 00:00:00 Test Item Value Reference Range Interpretation Comments CHOLESTEROL (test code = 2210) 139 MG/DL TRIGLYCERIDES (test code = 2232) 108 MG/DL HDL CHOLESTEROL (test code = 2220) 42 MG/DL CALC LDL CHOL (test code = 2237) 75 MG/DL RISK RATIO LDL/HDL (test code = 1.80 RATIO 2238) COMPREHENSIVE METABOLIC [id number] 00:00:00 Test Item Value Reference Range Interpretation Comments GLUCOSE (test code = 2217) 196 MG/DL BUN (test code = 2208) 23 MG/DL CREATININE (test code = 2214) 1.70 MG/DL eGFR AMER. (test code 37 ML/MIN/1.73 = 19524) eGFR NON- AMER. (test 32 ML/MIN/1.73 code = 54697) CALC BUN/CREAT (test code = 14 RATIO [...] BILIRUBIN, TOTAL (test code = 0.8 MG/DL 2207) ALKALINE PHOSPHATASE (test 101 U/L code = 2204) AST (test code = 2218) 16 U/L ALT (test code = 2219) 18 U/L COMPREHENSIVE METABOLIC [id number] 00:00:00 Test Item Value Reference Range Interpretation Comments GLUCOSE (test code = 2217) 196 MG/DL BUN (test code = 2208) 23 MG/DL CREATININE (test code = 2214) 1.70 MG/DL eGFR AMER. (test code 37 ML/MIN/1.73 = 08333) eGFR NON- AMER. (test 32 ML/MIN/1.73 code = 45488) CALC BUN/CREAT (test code = 14 RATIO 2235) SODIUM (test code = 2231) 145 MEQ/L POTASSIUM (test code = 2228) 4.6 MEQ/L CHLORIDE (test code = 2215) 104 MEQ/L CARBON DIOXIDE (test code = 26 MEQ/L 2206) CALCIUM (test code = 2209) 9.8 MG/DL PROTEIN, TOTAL (test code = 7.8 G/DL 2229) ALBUMIN (test code = 2201) 4.6 G/DL CALC GLOBULIN (test code = 3.2 G/DL 2240) CALC A/G RATIO (test code = 1.4 RATIO 2234) BILIRUBIN, TOTAL (test code = 0.8 MG/DL 2207) ALKALINE PHOSPHATASE (test 101 U/L code = 2204) AST (test code = 2218) 16 U/L ALT (test code = 2219) 18 U/L History and Physical Notes Date/Time Note Provider Source 2022-12-05 16:00:00-00:00 Mahesh Jurado MD: [employer] Display : DEA [facility] History and PhysicalAuthored Date: [id number] and Physical Primary Team Name: Lee Contact Info: Perfect serve Code Status: Full Resuscitation Chief Complaint: Return from outside hospital due to seizure History of Present Illness: 67 YOF with PMH significant for HTN, CHF, DM type 2, CKD, seizure and recent rt frontal craniotomy for meningioma resection on 09/21/2022 which was complicated by a 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 CTH at OSH demonstrated significant cerebral edema in the rt. frontal lobe resection cavity with 10 mm right to left midline shift. S/p dexamethasone 10mg x1 at OSH and transferred to [facility] (Ac[facility] Care) on 10/29/22 for higher level of care. 10/29 craniotomy, started on 5 days of Phenytoin and then discharged to [facility] on 11/06, on Keppra 500mg BID. She has not had any seizures since then. However, on 11/13, she presented to [facility] from [facility] with new onset L sided jerky movements, c/f seizures. She also has new L weakness after the seizure. Per patient, staff had turned her on her side when the seizure began. She did not lose consciousness but she says she was unaware how long the episode lasted for. She did not have any BBI, tongue biting or eye uprolling. During the 11/13 admission: On 11/13 pt had US BL lower legs and no DVTs were visualized. Pt on Heparin. Per CT on 11/14, "given increased mass effect, infection/abscess is a consideration." Pt started on PNG (11/14) , IV, X28 days (12/26). Tunneling venous catheter placed 11/18. Keppra increased to 750 mg BID. EEG neg for seizures. PLOF, pt. was Independent w/ADL's, Independent ambulation without the use of AD. Pt. lives with spouse and grandson in a single level home. Discharge plan, pt. will discharge home with spouse and family. Pt. has good family support. Family is willing and has capacity to assist and care for pt. and are able to assist with f/u appointments if needed. Patient is currently with ambulation dysfunction, transfer dysfunction, balance deficit, muscle weakness, generalized weakness, decreased ROM and decreased aerobic capacity/activity tolerance, decreased strength, decreased functional mobility. Patient referred to [facility] for AIR to increase independence with transfers and functional mobility. 11/19 PTEating : Supervision or touching assistance - [place] provides verbal cues and/or touching/steadying and/or contact guard assistance as patient/resident completes activity. Assistance may be provided throughout the activity or intermittently. - 04 Oral Hygiene : Partial/Moderate assistance - [place] does LESS THAN HALF the effort. [place] lifts, holds or supports trunk or limbs, but provides less than half the effort. - 03 Toilet Transfer : Not attempted due to medical condition or safety concerns - Toileting Hygiene : Substantial/Maximal assistance - [place] does MORE THAN HALF the effort. [place] lifts or holds trunk or limbs and provides more than half the effort. - 02 Shower, Bathe Self : Substantial/Maximal assistance - [place] does MORE THAN HALF the effort. [place] lifts or holds trunk or limbs and provides more than half the effort. - 02 Upper Body Dressing : Substantial/Maximal assistance - [place] does MORE THAN HALF the effort. [place] lifts or holds trunk or limbs and provides more than half the effort. - 02 Lower Body Dressing : Substantial/Maximal assistance - [place] does MORE THAN HALF the effort. [place] lifts or holds trunk or limbs and provides more than half the effort. - 02 Putting On, Taking Off Footwear : Substantial/Maximal assistance - [place] does MORE THAN HALF the effort. [place] lifts or holds trunk or limbs and provides more than half the effort. - 02 OT 11/17Eating : Supervision or touching assistance - [place] provides verbal cues and/or touching/steadying and/or contact guard assistance as patient/resident completes activity. Assistance may be provided throughout the activity or intermittently. - 04 Oral Hygiene : Partial/Moderate assistance - [place] does LESS THAN HALF the effort. [place] lifts, holds or supports trunk or limbs, but provides less than half the effort. - 03 Toilet Transfer : Not attempted due to medical condition or safety concerns - Toileting Hygiene : Substantial/Maximal assistance - [place] does MORE THAN HALF the effort. [place] lifts or holds trunk or limbs and provides more than half the effort. - 02 Shower, Bathe Self : Substantial/Maximal assistance - [place] does MORE THAN HALF the effort. [place] lifts or holds trunk or limbs and provides more than half the effort. - 02 Upper Body Dressing : Substantial/Maximal assistance - [place] does MORE THAN HALF the effort. [place] lifts or holds trunk or limbs and provides more than half the effort. - 02 Lower Body Dressing : Substantial/Maximal assistance - [place] does MORE THAN HALF the effort. [place] lifts or holds trunk or limbs and provides more than half the effort. - 02 Putting On, Taking Off Footwear : Substantial/Maximal assistance - [place] does MORE THAN HALF the effort. [place] lifts or holds trunk or limbs and provides more than half the effort. - 02 Review of Systems: Gen: no f/c, no fatigue, no weight changesHEENT: + headache occasionally nightly, no dysphagia, no changes in visionCV: no chest pain, no palpitationsPulm: no shortness of breath, no wheezing, no cough, no hemoptysisGI: no N/V, no constipation, no diarrhea, no abdominal painGU: no dysuria, no frequency, no urgency, no nocturia, no incontinence Ext: no edema, no arthralgia, no myalgia, no stiffnessSkin: no rashes or skin changesNeuro: + weakness, + headache, no seizure, no dizziness, no motor or sensory changesPsych: no mood changes, no insomniaEndocrine: no polyuria, no polydipsia, no cold or heat intoleranceHematologic/Lymphatic: no bleeding, no bruising, no edema, no lumps (axilla groin neck) Problem List/Past Medical History: Ongoing No qualifying data Procedure/Surgical History: As noted in HPI Family History: None reported Social History: Electronic Cigarette/Vaping Electronic Cigarette Use: Never. Number of Years: 0. Started at Age: 0.0 Years. Stopped At Age: 2 Years. Previous Treatment: None. Ready to Change: No. Passive Exposure: No. Tobacco Use: Never smoker. Type: eCigarettes. 0 per day. 0 year(s). Total pack years: 0. Started age 0.0 Years. Stopped age 2 Years. Previous treatment: None. Ready to change: Yes. Household tobacco concerns: Yes. Tobacco smoke exposure: None. Other Tobacco Frequency 0. Did the Patient Smoke Cigarettes Anytime During the Last 365 Days? No. Cessation Counseling Provided? No. Allergies: No Known Medication Allergies Home Medications: acetaminophen 325 mg oral tablet, 650 mg= 2 tab, PO, Q4H, PRN acetaminophen 325 mg oral tablet, 650 mg= 2 tab, PO, Q6H, PRN acetaminophen-hydrocodone 325 mg-10 mg oral tablet, 1 tab, PO, Q4H, PRN acetaminophen-hydrocodone 325 mg-5 mg oral tablet, 1 tab, PO, Q6H, PRN aspirin, 81 mg, PO, Daily atorvastatin 40 mg oral tablet, 40 mg= 1 tab, PO, Daily atorvastatin 40 mg oral tablet, 40 mg= 1 tab, PO, Daily Bactroban 2% nasal ointment w/applicator, See Instructions, Nasal; BID; Pea sized amount one inch inside nostril and gently massage in circular motion. Repeat for other nostril. bisacodyl 5 mg oral enteric coated tablet, 10 mg= 2 tab, PO, Daily calcium-vitamin D 500 mg-200 intl units oral tablet, 1 tab, PO, Daily carvedilol 12.5 mg oral tablet, 12.5 mg= 1 tab, PO, BID carvedilol 25 mg oral tablet, 25 mg= 1 tab, PO, BID Catapres 0.2 mg oral tablet, 0.2 mg= 1 tab, PO, BID, Hold if SBP cloNIDine 0.1 mg oral tablet, 0.2 mg= 2 tab, PO, BID docusate-senna 50 mg-8.6 mg oral capsule, 2 cap, PO, QPM docusate-senna 50 mg-8.6 mg oral tablet, 1 tab, PO, BID enoxaparin, 40 mg, SUB-Q, Daily ertapenem 1 g injection, 500 mg, IV, Daily-12N heparin, 5000 unit, SUB-Q, Q8H hydrALAZINE 20 mg/mL injectable solution, 20 mg, IV, Q6H, PRN hydrALAZINE 25 mg oral tablet, 25 mg= 1 tab, PO, Q8H insulin glargine 100 units/mL subcutaneous solution, 20 unit, SUB-Q, QAM insulin glargine 100 units/mL subcutaneous solution, 12 unit, SUB-Q, Bedtime insulin lispro 100 units/mL injectable solution, 6 unit, SUB-Q, TID-Before Meals insulin lispro 100 units/mL injectable solution, See Instructions, 0-6 Units SUB-Q TID before meals; HIGH DOSE sliding scale Administer before meals as needed. If BS = Keppra 750 mg oral tablet, 750 mg= 1 tab, PO, BID labetalol 5 mg/mL intravenous solution, See Instructions, 10 mg IV Q15Min PRN levETIRAcetam 500 mg/100 mL-NaCl 0.82% intravenous solution, 500 mg, IV, Q12H losartan 100 mg oral tablet, 100 mg= 1 tab, PO, Daily losartan 25 mg oral tablet, 75 mg= 3 tab, PO, Daily melatonin, 10 mg, PO, Bedtime morphine 2 mg/mL preservative-free intravenous solution, 2 mg, IV, Q4H, PRN NIFEdipine (Eqv-Procardia XL) 90 mg oral tablet, extended release, 90 mg= 1 tab, PO, Daily ondansetron 2 mg/mL injectable solution, 4 mg, IV, Q6H, PRN penicillin G potassium, 4 MilUnit, IV, Q8H Pepcid 20 mg oral tablet, 20 mg= 1 tab, PO, Daily polyethylene glycol 3350, 1 packet, PO, BID polyethylene glycol 3350, 17 gm, PO, Daily Procardia XL 90 mg oral tablet, extended release, 90 mg= 1 tab, PO, Daily, Hold if SPBP promethazine 12.5 mg oral tablet, 12.5 mg= 1 tab, PO, Q6H, PRN sertraline 100 mg oral tablet, 100 mg= 1 tab, PO, Daily Zoloft 100 mg oral tablet, 100 mg= 1 tab, PO, Daily Physical Exam: Vitals and Measurements T: 97.2 F (Temporal Artery) RR: 17 BP: 111/60 WT: 94.818 kg BMI: 32.74 Constitutional: No acute distress, appearing comfortable.Eyes: Conjunctivae and lids normal. PERRL.Ears, Nose, Mouth, Throat: Hearing intact.Cardiovascular: Regular rate and rhythm. No murmur. No lower limb edema. Lower limbs warm.Respiratory: Clear to auscultation bilaterally. Breathing comfortably on room air.Gastrointestinal: Soft, non-tender, and non-distended abdomen. Bowel sounds normal.Genitourinary: No indwelling Correa catheter. Wearing incontinent briefs.Musculoskeletal: Full painless passive range of motion of bilateral upper and lower limbs.Skin: Craniotomy incision intact, otherwise, No rashes, lesions, or ulcerations on exposed areas.Psychiatric: Responds appropriately to most questioning, though not oriented. No anxiety or agitation. Neurologic:Pupils reactive to light (CN II intact), EOMI (CN III, IV, intact), facial sensation and motor intact (CN V, VII intact), hearing intact (CN VIII), shoulder shrug intact (CN XI intact), tongue movement intact (CN XII)Sensation: Intact to light touch to bilateral upper and lower limbs.Tone: Normotonic bilateral upper and lower limbs.Clonus: No clonus bilaterally with dorsiflexion. Manual Muscle Testing out of 5: MuscleRLShoulder [id number] [id number] Elbow [id number] [id number] [id number] [id number] [id number] [id number] Mental status:Level of consciousness: Awake, alert, and appropriately interactive.Orientation: Alert and oriented to person. Oriented to time, place, situation. Attention/Concentration: Able to answer simple questions. Requires frequent reorienting.Speech and language: Speech is slow but fluent, comprehension intact. Pertinent Labs: Reviewed Pertinent Imagin10/29/222021 CT brain without IV contrast:IMPRESSION:Postsurgical changes status post redo right frontal craniotomy for resection of right frontal collection with moderate volume of pneumocephalus. There is decreased leftward midline shift now 0.6 cm. 10/29/22 1229 MR BRAIN WITH and WITHOUT IV CONTRAST: IMPRESSION:1.Significant interval increase in size and peripheral enhancement of the right frontal lobe resection cavity, along with significantlyincreased right frontal lobe edema. This may represent tumor recurrence or radiation necrosis. Correlate with clinical history.2.0.6 cm leftward midline shift the foramina Leos with greater mass effect on the anterior interhemispheric falx. 11/13/22-Venous doppler legs bilateralSummary Venous duplex imaging and compression of the bilateral lower extremities were performed. The veins were technically difficult to visualize due to edema and patient body habitus. The bilateral venous systems were patentand compressible with no evidence of thrombus where visualized. The venous Doppler waveforms were phasic with respiration . MR BRAIN WITH and WITHOUT IV [id number]/24/23IMPRESSION:.Postsurgical changes status post right frontal craniotomy with moderately decreased pneumocephalus. There is unchanged to slightlyincreased shift of midline structures from right to left of 0.7 cm and slightly increased vasogenic edema extending to the genu of the corpus callosum. No restricted diffusion to suggest abscess although infection should be excluded clinically. Otherwise, no acute infarction or hemorrhage. CT brain without IV contrast 11/13/22 IMPRESSION:Postsurgical changes status post right frontal craniotomy with persistent air-fluid level within the subjacent resection cavity.There is increased mass effect with increased vasogenic edema and leftward midline shift now 1.1 cm. Fluid also extends into the soft tissues overlying the craniotomy. No intracranial hemorrhage. Given increased mass effect, infection/abscess is a consideration. Imagingcannot confirm sterility of the collection and infection should be excluded clinically. MR BRAIN WITH and WITHOUT IV [id number]/24/23IMPRESSION:.Postsurgical changes status post right frontal craniotomy with moderately decreased pneumocephalus. There is unchanged to slightlyincreased shift of midline structures from right to left of 0.7 cm and slightly increased vasogenic edema extending to the genu of the corpus callosum. No restricted diffusion to suggest abscess although infection should be excluded clinically. Otherwise, no acute infarction or hemorrhage. 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 Admitted for inpatient rehabilitation on 11/06/22 after functional decline. On 11/13, she presented to [facility] from [facility] with new onset L sided jerky movements, c/f seizures. She also has new L weakness after the seizure. No returned for further IPR. IMPAIRMENTS:DebilityPhysical/muscular deconditioningPossible Neurogenic bowelPossible Neurogenic bladderPain Gait abnormalityImpaired mobility ACTIVITY LIMITATIONS:Decreased mobilityDecreased transfersImpairments of ability to perform ADLsImpairments of speech PARTICIPATION RESTRICTIONS:Return to workDrivingTaking care of the homeRecreational leisure activitiesCommunity reintegration PLAN:#Rehabilitation #Impaired mobility#Impaired ADLsPatient will benefit from 3 hours daily of inpatient rehabilitation to help return to prior level of independence. Patient will require physician specializing in physical medicine and rehabilitation to provide oversight of rehabilitation therapies and close medical supervision of rehabilitation specific issues, some of which include: pain management, sleep disturbance, coordination of treatment plan and monitoring for complications. Patient will require physical therapy for a minimum of 1 to 1-1/2 hours daily at least 5 out of 7 days per week to improve functional mobility, balance, strengthening, transfers, range of motion, endurance and gait training. Patient will require occupational therapy for a minimum of 1 to 1-1/2 hours daily at least 5 out of 7 days per week to improve activities of daily living including eating, grooming, bathing, dressing, toileting, toilet transfers, splinting and other activities to be determined. Patient requires speech and language pathology at least 1 hour a day for a minimum of 2 to 3 days per week for cognitive evaluation/deficits. Patient will require 24-hour rehabilitation nursing for pain issues, identifying and preventing risk factors, monitoring and reporting current medical conditions, assisting with ambulation, transfers, and all ADLs, bowel and bladder issues and skin integrity. Patient may require social worker and/or case management for discharge planning and arranging home equipment or services. Patient will require dietary and nutrition services for adequate nutrition and nutritional supplements.- Continue Physical Therapy to for impaired balance, strength, and coordination resulting in impaired mobility compared to baseline- Continue Occupational Therapy for impaired ADLs compared to baseline #Brain Injury#Intracranial Abscess #Seizures:- Patient with left hemiparesis secondary to intracranial abscess and cervical edema on 10/29/2022.- LAST ADMISSION was on Ertapenem 500mg qD x4 weeks (End date ~11/26/22) - Will need to see if to be continued here still, per primary- Continue Keppra 750 mg BID- aspirin 81 mg PO Daily #Hemiparesis- Left non dominant side hemiparesis secondary to BI- Ongoing PT/OT therapies working on strengthening, balance, ADLs #Impaired cognition#Neuropsychological status- Recommend MEDICAL SCIENTIST/neuropsych for further evaluation and treatment- Continue Speech Language Pathology for impaired cognition compared to baseline- Ritalin was on NOV last admission Staring Ritalin 5 mg BID (11/11) #Sleep-wake cycle dysregulation due to traumatic brain injury- Recommend re-establish circadian rhythm with lights on during daytime and room darkened with minimal interruptions at night- May use melatonin 3mg to 6mg qHs- Optimize pain, agitation, or other medical conditions #Spasticity- Continue to monitor- PT and OT to initiate aggressive stretching, ROM exercises, bracing, splinting, casting and positioning as appropriate. #Pain- Currently on- Optimize pain control to facilitate therapy participation #Bowel- Continent- Goal to have one soft, formed bowel movement at least every other day- Will continue to monitor BM and titrate regimen as needed. - Admit KUB pending #Bladder- External female cath/diapers- Treat UTI if indicated #Nutrition- Currently on carb controlled diet- Recommend dietitian consult- Optimize nutritional status to facilitate therapy endurance. #Skin- Patient at significant risk for wounds due to recumbency and prolonged immobility- Would turn patient q2-4h and daily monitor skin for signs of breakdown #HTN#HLD#Stroke ppx- NIFEdipine (Procardia XL 90 mg oral tablet, extended release) 90 mg PO Daily- atorvastatin 40 mg PO Daily- carvedilol 25 mg PO BID- cloNIDine 0.2 mg PO BID- hydrALAZINE (hydrALAZINE 25 mg oral tablet) 25 mg PO Q8H- losartan 100 mg PO Daily #DM2- insulin glargine (insulin glargine 100 units/mL subcutaneous solution) 12 unit SUB-Q Bedtime #Depression- sertraline (Zoloft) 100 mg PO Daily PrecautionsFall, aspiration Prophylaxis- DVT: Heparin 5000 SC q8h- GI: Famotidine- Seizure: N/A Disposition- Prognosis: Fair to Good- Location: [facility]- Estimated length of stay: 2-3 weeks Follow-Ups- PM&R [facility] outpatient clinic: Please call [phone] for appointment- [facility], [facility] [phone]- PCP for post-hospitalization follow-up and management of chronic medical conditions. For [place] Physicians, please call please call [phone] ([phone]).- Please call for appointment at [phone] for [facility] clinic for PM&R follow up for individuals who may lack access. Clinic takes place on and Saturdays of each month from 0830 to 1230 located at [address] [address]. May also consider attending equipment distribution which takes place on the thursday of every month from 9 AM to 12 PM at distribution center on [address] [place] [address].- Amputees: Please call for appointment at [phone] [facility] located at [facility]- No Insurance: [facility]- [facility]. Rehabilitation Services. Patient discussed with PM&R Attending Dr. Barbara Jurado, MDPGY-2, Physical Medicine and RehabilitationTex[facility] at [facility] HospitalProvider ID# [id number] Mahesh Jurado MDElectronically Signed: 11/21/22 21:22 2022-12-05 16:00:00-00:00 Simone Jimenez MD: PERFORMEvent Display: [facility] History and PhysicalAuthored Date: [id number] ATTENDING/POST-ADMISSION PHYSICIAN EVALUATION I saw, examined and discussed the patient with the resident, Dr. Jurado and agree with the documentation. There are no medical or functional changes since the preadmission assessment. The patient has ongoing medical and functional impairments that can safely be met in the IRF setting, and these needs cannot be adequately addressed in a lower level of care, as the patient requires 24hr nursing and daily medical management. The patient also has comorbidities which also necessitate close medical supervision, specialized rehabilitation nursing, and skilled therapy intervention. The patient is able to participate in and benefit from an acute inpatient rehabilitation program, with anticipated measurable gains as a result of this program. There are no obvious barriers to disposition to the community following the IRF admission. - CBC, BMP, LFTs, lipids, HbA1c, and UA ordered.- CT head ordered to better establish neuroanatomy.- CXR and KUB ordered.- EKG ordered as many medications that we would consider to facilitate recovery can cause conduction abnormalities.- IM consulted to help with management of medical comorbidities. Individualized Plan of Care: Patient will require 24 hour rehabilitation nursing for management of bowel, bladder, skin integrity, medication management, safety measures and preventing risk factors and complications. Patient will require a minimum of 3 hours of therapy a day for 5-7 days a week throughout the hospitalization, including at least the followin-2 hours Physical Therapy, 1-2 hours Occupational Therapy and 1 hour Speech-Language pathology, Neuropsychology, Exercise and Multidisciplinary Groups. These disciplines will be needed in order to improve the patient s impairments in mobility, transfers, activities of daily living, swallowing and cognition and evaluation of durable medical equipment if needed at discharge.In addition the patient may also receive Music Therapy and Therapeutic Recreation.Social Work and Case Management will be consulted to assist with discharge planning and family coping strategies.Prognosis: goodEstimated Length of Stay: 3-4 weeksDischarge Disposition: home, will continue to discuss at interdisciplinary team Simone Silverio MDElectronically Signed: 11/22/22 10:41 2022-12-05 16:00:00-00:00 Mahesh Jurado MD: PERFORMEvent Display : [facility] History and PhysicalAuthored Date: [id number] and Physical Primary Team Name: Lee Contact Info: Perfect serve Code Status: Full Resuscitation Chief Complaint: Return from outside hospital due to seizure History of Present Illness: 67 YOF with PMH significant for HTN, CHF, DM type 2, CKD, seizure and recent rt frontal craniotomy for meningioma resection on 09/21/2022 which was complicated by a 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 CTH at OSH demonstrated significant cerebral edema in the rt. frontal lobe resection cavity with 10 mm right to left midline shift. S/p dexamethasone 10mg x1 at OSH and transferred to [facility] (Acute Care[facility] on 10/29/22 for higher level of care. 10/29 craniotomy, started on 5 days of Phenytoin and then discharged to [facility] on 11/06, on Keppra 500mg BID. She has not had any seizures since then. However, on 11/13, she presented to [facility] from [facility] with new onset L sided jerky movements, c/f seizures. She also has new L weakness after the seizure. Per patient, staff had turned her on her side when the seizure began. She did not lose consciousness but she says she was unaware how long the episode lasted for. She did not have any BBI, tongue biting or eye uprolling. During the 11/13 admission: On 11/13 pt had US BL lower legs and no DVTs were visualized. Pt on Heparin. Per CT on 11/14, "given increased mass effect, infection/abscess is a consideration." Pt started on PNG (11/14) , IV, X28 days (12/26). Tunneling venous catheter placed 11/18. Keppra increased to 750 mg BID. EEG neg for seizures. PLOF, pt. was Independent w/ADL's, Independent ambulation without the use of AD. Pt. lives with spouse and grandson in a single level home. Discharge plan, pt. will discharge home with spouse and family. Pt. has good family support. Family is willing and has capacity to assist and care for pt. and are able to assist with f/u appointments if needed. Patient is currently with ambulation dysfunction, transfer dysfunction, balance deficit, muscle weakness, generalized weakness, decreased ROM and decreased aerobic capacity/activity tolerance, decreased strength, decreased functional mobility. Patient referred to [facility] for [facility] to increase independence with transfers and functional mobility. 11/19 PTEating : Supervision or touching assistance - [place] provides verbal cues and/or touching/steadying and/or contact guard assistance as patient/resident completes activity. Assistance may be provided throughout the activity or intermittently. - 04 Oral Hygiene : Partial/Moderate assistance - [place] does LESS THAN HALF the effort. [place] lifts, holds or supports trunk or limbs, but provides less than half the effort. - 03 Toilet Transfer : Not attempted due to medical condition or safety concerns - 88 Toileting Hygiene : Substantial/Maximal assistance - [place] does MORE THAN HALF the effort. [place] lifts or holds trunk or limbs and provides more than half the effort. - 02 Shower, Bathe Self : Substantial/Maximal assistance - [place] does MORE THAN HALF the effort. [place] lifts or holds trunk or limbs and provides more than half the effort. - 02 Upper Body Dressing : Substantial/Maximal assistance - [place] does MORE THAN HALF the effort. [place] lifts or holds trunk or limbs and provides more than half the effort. - 02 Lower Body Dressing : Substantial/Maximal assistance - [place] does MORE THAN HALF the effort. [place] lifts or holds trunk or limbs and provides more than half the effort. - 02 Putting On, Taking Off Footwear : Substantial/Maximal assistance - [place] does MORE THAN HALF the effort. [place] lifts or holds trunk or limbs and provides more than half the effort. - 02 OT 11/17Eating : Supervision or touching assistance - [place] provides verbal cues and/or touching/steadying and/or contact guard assistance as patient/resident completes activity. Assistance may be provided throughout the activity or intermittently. - 04 Oral Hygiene : Partial/Moderate assistance - [place] does LESS THAN HALF the effort. [place] lifts, holds or supports trunk or limbs, but provides less than half the effort. - 03 Toilet Transfer : Not attempted due to medical condition or safety concerns - 88 Toileting Hygiene : Substantial/Maximal assistance - [place] does MORE THAN HALF the effort. [place] lifts or holds trunk or limbs and provides more than half the effort. - 02 Shower, Bathe Self : Substantial/Maximal assistance - [place] does MORE THAN HALF the effort. [place] lifts or holds trunk or limbs and provides more than half the effort. - 02 Upper Body Dressing : Substantial/Maximal assistance - [place] does MORE THAN HALF the effort. [place] lifts or holds trunk or limbs and provides more than half the effort. - 02 Lower Body Dressing : Substantial/Maximal assistance - [place] does MORE THAN HALF the effort. [place] lifts or holds trunk or limbs and provides more than half the effort. - 02 Putting On, Taking Off Footwear : Substantial/Maximal assistance - [place] does MORE THAN HALF the effort. [place] lifts or holds trunk or limbs and provides more than half the effort. - 02 Review of Systems: Gen: no f/c, no fatigue, no weight changesHEENT: + headache occasionally nightly, no dysphagia, no changes in visionCV: no chest pain, no palpitationsPulm: no shortness of breath, no wheezing, no cough, no hemoptysisGI: no N/V, no constipation, no diarrhea, no abdominal painGU: no dysuria, no frequency, no urgency, no nocturia, no incontinence Ext: no edema, no arthralgia, no myalgia, no stiffnessSkin: no rashes or skin changesNeuro: + weakness, + headache, no seizure, no dizziness, no motor or sensory changesPsych: no mood changes, no insomniaEndocrine: no polyuria, no polydipsia, no cold or heat intoleranceHematologic/Lymphatic: no bleeding, no bruising, no edema, no lumps (axilla groin neck) Problem List/Past Medical History: Ongoing No qualifying data Procedure/Surgical History: As noted in HPI Family History: None reported Social History: Electronic Cigarette/Vaping Electronic Cigarette Use: Never. Number of Years: 0. Started at Age: 0.0 Years. Stopped At Age: 2 Years. Previous Treatment: None. Ready to Change: No. Passive Exposure: No. Tobacco Use: Never smoker. Type: eCigarettes. 0 per day. 0 year(s). Total pack years: 0. Started age 0.0 Years. Stopped age 2 Years. Previous treatment: None. Ready to change: Yes. Household tobacco concerns: Yes. Tobacco smoke exposure: None. Other Tobacco Frequency 0. Did the Patient Smoke Cigarettes Anytime During the Last 365 Days? No. Cessation Counseling Provided? No. Allergies: No Known Medication Allergies Home Medications: acetaminophen 325 mg oral tablet, 650 mg= 2 tab, PO, Q4H, PRN acetaminophen 325 mg oral tablet, 650 mg= 2 tab, PO, Q6H, PRN acetaminophen-hydrocodone 325 mg-10 mg oral tablet, 1 tab, PO, Q4H, PRN acetaminophen-hydrocodone 325 mg-5 mg oral tablet, 1 tab, PO, Q6H, PRN aspirin, 81 mg, PO, Daily atorvastatin 40 mg oral tablet, 40 mg= 1 tab, PO, Daily atorvastatin 40 mg oral tablet, 40 mg= 1 tab, PO, Daily Bactroban 2% nasal ointment w/applicator, See Instructions, Nasal; BID; Pea sized amount one inch inside nostril and gently massage in circular motion. Repeat for other nostril. bisacodyl 5 mg oral enteric coated tablet, 10 mg= 2 tab, PO, Daily calcium-vitamin D 500 mg-200 intl units oral tablet, 1 tab, PO, Daily carvedilol 12.5 mg oral tablet, 12.5 mg= 1 tab, PO, BID carvedilol 25 mg oral tablet, 25 mg= 1 tab, PO, BID Catapres 0.2 mg oral tablet, 0.2 mg= 1 tab, PO, BID, Hold if SBP cloNIDine 0.1 mg oral tablet, 0.2 mg= 2 tab, PO, BID docusate-senna 50 mg-8.6 mg oral capsule, 2 cap, PO, QPM docusate-senna 50 mg-8.6 mg oral tablet, 1 tab, PO, BID enoxaparin, 40 mg, SUB-Q, Daily ertapenem 1 g injection, 500 mg, IV, Daily-12N heparin, 5000 unit, SUB-Q, Q8H hydrALAZINE 20 mg/mL injectable solution, 20 mg, IV, Q6H, PRN hydrALAZINE 25 mg oral tablet, 25 mg= 1 tab, PO, Q8H insulin glargine 100 units/mL subcutaneous solution, 20 unit, SUB-Q, QAM insulin glargine 100 units/mL subcutaneous solution, 12 unit, SUB-Q, Bedtime insulin lispro 100 units/mL injectable solution, 6 unit, SUB-Q, TID-Before Meals insulin lispro 100 units/mL injectable solution, See Instructions, 0-6 Units SUB-Q TID before meals; HIGH DOSE sliding scale Administer before meals as needed. If BS = Keppra 750 mg oral tablet, 750 mg= 1 tab, PO, BID labetalol 5 mg/mL intravenous solution, See Instructions, 10 mg IV Q15Min PRN levETIRAcetam 500 mg/100 mL-NaCl 0.82% intravenous solution, 500 mg, IV, Q12H losartan 100 mg oral tablet, 100 mg= 1 tab, PO, Daily losartan 25 mg oral tablet, 75 mg= 3 tab, PO, Daily melatonin, 10 mg, PO, Bedtime morphine 2 mg/mL preservative-free intravenous solution, 2 mg, IV, Q4H, PRN NIFEdipine (Eqv-Procardia XL) 90 mg oral tablet, extended release, 90 mg= 1 tab, PO, Daily ondansetron 2 mg/mL injectable solution, 4 mg, IV, Q6H, PRN penicillin G potassium, 4 MilUnit, IV, Q8H Pepcid 20 mg oral tablet, 20 mg= 1 tab, PO, Daily polyethylene glycol 3350, 1 packet, PO, BID polyethylene glycol 3350, 17 gm, PO, Daily Procardia XL 90 mg oral tablet, extended release, 90 mg= 1 tab, PO, Daily, Hold if SPBP promethazine 12.5 mg oral tablet, 12.5 mg= 1 tab, PO, Q6H, PRN sertraline 100 mg oral tablet, 100 mg= 1 tab, PO, Daily Zoloft 100 mg oral tablet, 100 mg= 1 tab, PO, Daily Physical Exam: Vitals and Measurements T: 97.2 F (Temporal Artery) RR: 17 BP: 111/60 WT: 94.818 kg BMI: 32.74 Constitutional: No acute distress, appearing comfortable.Eyes: Conjunctivae and lids normal. PERRL.Ears, Nose, Mouth, Throat: Hearing intact.Cardiovascular: Regular rate and rhythm. No murmur. No lower limb edema. Lower limbs warm.Respiratory: Clear to auscultation bilaterally. Breathing comfortably on room air.Gastrointestinal: Soft, non-tender, and non-distended abdomen. Bowel sounds normal.Genitourinary: No indwelling Correa catheter. Wearing incontinent briefs.Musculoskeletal: Full painless passive range of motion of bilateral upper and lower limbs.Skin: Craniotomy incision intact, otherwise, No rashes, lesions, or ulcerations on exposed areas.Psychiatric: Responds appropriately to most questioning, though not oriented. No anxiety or agitation. Neurologic:Pupils reactive to light (CN II intact), EOMI (CN III, IV, intact), facial sensation and motor intact (CN V, VII intact), hearing intact (CN VIII), shoulder shrug intact (CN XI intact), tongue movement intact (CN XII)Sensation: Intact to light touch to bilateral upper and lower limbs.Tone: Normotonic bilateral upper and lower limbs.Clonus: No clonus bilaterally with dorsiflexion. Manual Muscle Testing out of 5: MuscleRLShoulder [id number] dtwzpwy24 Elbow [id number] inmoxwa61Orr mbyslgo13Htvl meiliwicz94Chfsg wsrodytwimxg73Dqsqv udttxlygvniyvr10 Mental status:Level of consciousness: Awake, alert, and appropriately interactive.Orientation: Alert and oriented to person. Oriented to time, place, situation. Attention/Concentration: Able to answer simple questions. Requires frequent reorienting.Speech and language: Speech is slow but fluent, comprehension intact. Pertinent Labs: Reviewed Pertinent Imagin10/29/222021 CT brain without IV contrast:IMPRESSION:Postsurgical changes status post redo right frontal craniotomy for resection of right frontal collection with moderate volume of pneumocephalus. There is decreased leftward midline shift now 0.6 cm. 10/29/22 1229 MR BRAIN WITH and WITHOUT IV CONTRAST: IMPRESSION:1.Significant interval increase in size and peripheral enhancement of the right frontal lobe resection cavity, along with significantlyincreased right frontal lobe edema. This may represent tumor recurrence or radiation necrosis. Correlate with clinical history.2.0.6 cm leftward midline shift the foramina Leos with greater mass effect on the anterior interhemispheric falx. 11/13/22-Venous doppler legs bilateralSummary Venous duplex imaging and compression of the bilateral lower extremities were performed. The veins were technically difficult to visualize due to edema and patient body habitus. The bilateral venous systems were patentand compressible with no evidence of thrombus where visualized. The venous Doppler waveforms were phasic with respiration . MR BRAIN WITH and WITHOUT IV [id number]/23IMPRESSION:.Postsurgical changes status post right frontal craniotomy with moderately decreased pneumocephalus. There is unchanged to slightlyincreased shift of midline structures from right to left of 0.7 cm and slightly increased vasogenic edema extending to the genu of the corpus callosum. No restricted diffusion to suggest abscess although infection should be excluded clinically. Otherwise, no acute infarction or hemorrhage. CT brain without IV contrast 11/13/22 IMPRESSION:Postsurgical changes status post right frontal craniotomy with persistent air-fluid level within the subjacent resection cavity.There is increased mass effect with increased vasogenic edema and leftward midline shift now 1.1 cm. Fluid also extends into the soft tissues overlying the craniotomy. No intracranial hemorrhage. Given increased mass effect, infection/abscess is a consideration. Imagingcannot confirm sterility of the collection and infection should be excluded clinically. MR BRAIN WITH and WITHOUT IV [id number]/23IMPRESSION:.Postsurgical changes status post right frontal craniotomy with moderately decreased pneumocephalus. There is unchanged to slightlyincreased shift of midline structures from right to left of 0.7 cm and slightly increased vasogenic edema extending to the genu of the corpus callosum. No restricted diffusion to suggest abscess although infection should be excluded clinically. Otherwise, no acute infarction or hemorrhage. 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 Admitted for inpatient rehabilitation on 11/06/22 after functional decline. On 11/13, she presented to [facility] from [facility] with new onset L sided jerky movements, c/f seizures. She also has new L weakness after the seizure. No returned for further IPR. IMPAIRMENTS:DebilityPhysical/muscular deconditioningPossible Neurogenic bowelPossible Neurogenic bladderPain Gait abnormalityImpaired mobility ACTIVITY LIMITATIONS:Decreased mobilityDecreased transfersImpairments of ability to perform ADLsImpairments of speech PARTICIPATION RESTRICTIONS:Return to workDrivingTaking care of the homeRecreational leisure activitiesCommunity reintegration PLAN:#Rehabilitation #Impaired mobility#Impaired ADLsPatient will benefit from 3 hours daily of inpatient rehabilitation to help return to prior level of independence. Patient will require physician specializing in physical medicine and rehabilitation to provide oversight of rehabilitation therapies and close medical supervision of rehabilitation specific issues, some of which include: pain management, sleep disturbance, coordination of treatment plan and monitoring for complications. Patient will require physical therapy for a minimum of 1 to 1-1/2 hours daily at least 5 out of 7 days per week to improve functional mobility, balance, strengthening, transfers, range of motion, endurance and gait training. Patient will require occupational therapy for a minimum of 1 to 1-1/2 hours daily at least 5 out of 7 days per week to improve activities of daily living including eating, grooming, bathing, dressing, toileting, toilet transfers, splinting and other activities to be determined. Patient requires speech and language pathology at least 1 hour a day for a minimum of 2 to 3 days per week for cognitive evaluation/deficits. Patient will require 24-hour rehabilitation nursing for pain issues, identifying and preventing risk factors, monitoring and reporting current medical conditions, assisting with ambulation, transfers, and all ADLs, bowel and bladder issues and skin integrity. Patient may require social worker and/or case management for discharge planning and arranging home equipment or services. Patient will require dietary and nutrition services for adequate nutrition and nutritional supplements.- Continue Physical Therapy to for impaired balance, strength, and coordination resulting in impaired mobility compared to baseline- Continue Occupational Therapy for impaired ADLs compared to baseline #Brain Injury#Intracranial Abscess #Seizures:- Patient with left hemiparesis secondary to intracranial abscess and cervical edema on 10/29/2022.- LAST ADMISSION was on Ertapenem 500mg qD x4 weeks (End date ~11/26/22) - Will need to see if to be continued here still, per primary- Continue Keppra 750 mg BID- aspirin 81 mg PO Daily #Hemiparesis- Left non dominant side hemiparesis secondary to BI- Ongoing PT/OT therapies working on strengthening, balance, ADLs #Impaired cognition#Neuropsychological status- Recommend MEDICAL SCIENTIST/neuropsych for further evaluation and treatment- Continue Speech Language Pathology for impaired cognition compared to baseline- Ritalin was on MAR last admission Staring Ritalin 5 mg BID (11/11) #Sleep-wake cycle dysregulation due to traumatic brain injury- Recommend re-establish circadian rhythm with lights on during daytime and room darkened with minimal interruptions at night- May use melatonin 3mg to 6mg qHs- Optimize pain, agitation, or other medical conditions #Spasticity- Continue to monitor- PT and OT to initiate aggressive stretching, ROM exercises, bracing, splinting, casting and positioning as appropriate. #Pain- Currently on- Optimize pain control to facilitate therapy participation #Bowel- Continent- Goal to have one soft, formed bowel movement at least every other day- Will continue to monitor BM and titrate regimen as needed. - Admit KUB pending #Bladder- External female cath/diapers- Treat UTI if indicated #Nutrition- Currently on carb controlled diet- Recommend dietitian consult- Optimize nutritional status to facilitate therapy endurance. #Skin- Patient at significant risk for wounds due to recumbency and prolonged immobility- Would turn patient q2-4h and daily monitor skin for signs of breakdown #HTN#HLD#Stroke ppx- NIFEdipine (Procardia XL 90 mg oral tablet, extended release) 90 mg PO Daily- atorvastatin 40 mg PO Daily- carvedilol 25 mg PO BID- cloNIDine 0.2 mg PO BID- hydrALAZINE (hydrALAZINE 25 mg oral tablet) 25 mg PO Q8H- losartan 100 mg PO Daily #DM2- insulin glargine (insulin glargine 100 units/mL subcutaneous solution) 12 unit SUB-Q Bedtime #Depression- sertraline (Zoloft) 100 mg PO Daily PrecautionsFall, aspiration Prophylaxis- DVT: Heparin 5000 SC q8h- GI: Famotidine- Seizure: N/A Disposition- Prognosis: Fair to Good- Location: [facility]- Estimated length of stay: 2-3 weeks Follow-Ups- PM&R [facility] outpatient clinic: Please call [phone] for appointment- [facility], [facility] [phone]- PCP for post-hospitalization follow-up and management of chronic medical conditions. For [place] Physicians, please call please call [phone] ([phone]).- Please call for appointment at [phone] for [facility] clinic for PM&R follow up for individuals who may lack access. Clinic takes place on and Saturdays of each month from 0830 to 1230 located at [address] [address]. May also consider attending equipment distribution which takes place on the thursday of every month from 9 AM to 12 PM at distribution center on [address] [facility] [place] [address].- Amputees: Please call for appointment at [phone] [facility] located at [facility]- No Insurance: [facility]- [facility]: [facility]. Rehabilitation Services. Patient discussed with PM&R Attending Dr. Barbara Jurado, MDPGY-2, Physical Medicine and RehabilitationHorse Pasture Popdeem School at [facility] HospitalProvider ID# [id number] Mahesh Jurado MDElectronically Signed: 11/21/22 21:22 2022-12-05 16:00:00-:00 Simnoe Jimenez MD: PERFORMEvent Display: [facility] History and PhysicalAuthored Date: [id number] ATTENDING/POST-ADMISSION PHYSICIAN EVALUATION I saw, examined and discussed the patient with the resident, Dr. Jurado and agree with the documentation. There are no medical or functional changes since the preadmission assessment. The patient has ongoing medical and functional impairments that can safely be met in the IRF setting, and these needs cannot be adequately addressed in a lower level of care, as the patient requires 24hr nursing and daily medical management. The patient also has comorbidities which also necessitate close medical supervision, specialized rehabilitation nursing, and skilled therapy intervention. The patient is able to participate in and benefit from an acute inpatient rehabilitation program, with anticipated measurable gains as a result of this program. There are no obvious barriers to disposition to the community following the IRF admission. - CBC, BMP, LFTs, lipids, HbA1c, and UA ordered.- CT head ordered to better establish neuroanatomy.- CXR and KUB ordered.- EKG ordered as many medications that we would consider to facilitate recovery can cause conduction abnormalities.- IM consulted to help with management of medical comorbidities. Individualized Plan of Care: Patient will require 24 hour rehabilitation nursing for management of bowel, bladder, skin integrity, medication management, safety measures and preventing risk factors and complications. Patient will require a minimum of 3 hours of therapy a day for 5-7 days a week throughout the hospitalization, including at least the followin-2 hours Physical Therapy, 1-2 hours Occupational Therapy and 1 hour Speech-Language pathology, Neuropsychology, Exercise and Multidisciplinary Groups. These disciplines will be needed in order to improve the patient s impairments in mobility, transfers, activities of daily living, swallowing and cognition and evaluation of durable medical equipment if needed at discharge.In addition the patient may also receive Music Therapy and Therapeutic Recreation.Social Work and Case Management will be consulted to assist with discharge planning and family coping strategies.Prognosis: goodEstimated Length of Stay: 3-4 weeksDischarge Disposition: home, will continue to discuss at interdisciplinary team Simone Silverio MDElectronically Signed: 11/22/22 10:41 Notes Date/Time Note Provider Source 2022-12-02 08:26:40-00:00 PROCEDURE INFORMATION: T[facility]R Exam: XR Lumbosacral Spine Exam date and time: 12/02/2022 7:44 AM Age: 67 years old Clinical indication: /low back pain TECHNIQUE: Imaging protocol: Radiologic exam of the lumbosa cral spine. Views: 4 or 5 views. AP Lateral Oblique COMPARISON: ABDOMEN AP DX 11/22/2022 1:00 PM FINDINGS: Bones/joints: 5 lumbar-type vertebral bodies. 3. 5 mm anterolisthesis of L4 on L5 and slight posterior listhesis of L5 on S1. T here is bilateral L4-L5 and L5-S1 facet hypertrophy. No spondylolysis bilate rally. Vwdy-uz-dsrrzivm degenerative changes about the visualized lower thoracic spine. Mild degenerative changes about L4-L5. No fracture or other subluxation. Abdominal aortic and iliac artery calcification. Multiple coils project about the lower abdomen and pelvis. Nonspeci fic 1.2 cm calcification projects between the right L2 and L3 transverse processes. Surgical clips a re seen in the right upper abdomen. Large amount of stool noted about the v isualized colon. Soft tissues: Unremarkable. IMPRESSION: 1. 3.5 mm anterolisthesis of L4 on L5 and slight posterior listhesis of L5 on S1. There is bilateral L4-L5 and L5-S1 facet hyp ertrophy. No spondylolysis bilaterally. Gkrd-ah-wbqntnjz degenerative crawford es about the visualized lower thoracic spine. Mild degenerative changes about L4-L5. No fracture or other subluxation. 2. Nonspecific 1.2 cm calcification projects bet ween the right L2 and L3 transverse processes. 3. Large amount of stool noted about the visuali zed colon. Michael Lay MD On 12/02/2022 10:57:36; [id number] 2022-12-02 08:26:40-00:00 PROCEDURE INFORMATION: TIRR Exam: XR Lumbosacral Spine Exam date and time: 12/02/2022 7:44 AM Age: 67 years old Clinical indication: /low back pain TECHNIQUE: Imaging protocol: Radiologic exam of the lumbosa cral spine. Views: 4 or 5 views. AP Lateral Oblique COMPARISON: ABDOMEN AP DX 11/22/2022 1:00 PM FINDINGS: Bones/joints: 5 lumbar-type vertebral bodies. 3. 5 mm anterolisthesis of L4 on L5 and slight posterior listhesis of L5 on S1. T here is bilateral L4-L5 and L5-S1 facet hypertrophy. No spondylolysis bilate rally. Bsrf-ks-jlaoxbuz degenerative changes about the visualized lower thoracic spine. Mild degenerative changes about L4-L5. No fracture or other subluxation. Abdominal aortic and iliac artery calcification. Multiple coils project about the lower abdomen and pelvis. Nonspeci fic 1.2 cm calcification projects between the right L2 and L3 transverse processes. Surgical clips a re seen in the right upper abdomen. Large amount of stool noted about the v isualized colon. Soft tissues: Unremarkable. IMPRESSION: 1. 3.5 mm anterolisthesis of L4 on L5 and slight posterior listhesis of L5 on S1. There is bilateral L4-L5 and L5-S1 facet hyp ertrophy. No spondylolysis bilaterally. Oyyu-ld-pdgfdhjj degenerative crawford es about the visualized lower thoracic spine. Mild degenerative changes about L4-L5. No fracture or other subluxation. 2. Nonspecific 1.2 cm calcification projects bet ween the right L2 and L3 transverse processes. 3. Large amount of stool noted about the visuali zed colon. Michael Lay MD On 12/02/2022 10:57:36; VR [id number] 2022-11-27 19:55:13-00:00 PROCEDURE INFORMATION: T[facility]R Exam: XR Left Knee Exam date and time: 11/27/2022 8:25 PM Age: 67 years old Clinical indication: /l knee pain TECHNIQUE: Imaging protocol: Radiologic exam of the left kn ee. Views: 1 or 2 views. AP and Lateral COMPARISON: No relevant prior studies available. FINDINGS: Bones/joints: Mild medial, moderate lateral and severe patellofemoral compartment osteoarthritis without acute fractur e, dislocation or destructive bone lesion. No joint effusion. Moderate patello femoral joint space loss. Medial and lateral compartment joint spaces are preserved. Soft tissues: No soft tissue edema, air or radio paque foreign body. Vasculature: Severe femoropopliteal and trifurca tion atherosclerosis, best depicted in the lateral view. IMPRESSION: 1. Tricompartmental osteoarthritis without acute osseous abnormality. 2. No heterotopic ossification noted. Alfred Hernandez MD On 11/28/2022 08:26:51; [id number] 2022-11-27 19:55:13-00:00 PROCEDURE INFORMATION: T[facility]R Exam: XR Left Knee Exam date and time: 11/27/2022 8:25 PM Age: 67 years old Clinical indication: /l knee pain TECHNIQUE: Imaging protocol: Radiologic exam of the left kn ee. Views: 1 or 2 views. AP and Lateral COMPARISON: No relevant prior studies available. FINDINGS: Bones/joints: Mild medial, moderate lateral and severe patellofemoral compartment osteoarthritis without acute fractur e, dislocation or destructive bone lesion. No joint effusion. Moderate patello femoral joint space loss. Medial and lateral compartment joint spaces are preserved. Soft tissues: No soft tissue edema, air or radio paque foreign body. Vasculature: Severe femoropopliteal and trifurca tion atherosclerosis, best depicted in the lateral view. IMPRESSION: 1. Tricompartmental osteoarthritis without acute osseous abnormality. 2. No heterotopic ossification noted. Alfred Hernandez MD On 11/28/2022 08:26:51; [id number] 2022-11-22 13:58:46-00:00 Radiation Dose CTDIVOL = 59. 82 (mGy): DLP = 1066.26 (mGy-cm) T[facility]R PROCEDURE INFORMATION: Exam: CT Head Without Contrast Exam date and time: 11/22/2022 1:38 PM Age: 67 years old Clinical indication: /brain abscess TECHNIQUE: Imaging protocol: Computed tomography of the hea d without contrast. Radiation optimization: All CT scans at this facility use at least one of these dose optimization techniques: automated exposure control; mA and/or kV adjustment per patient size (includes targeted e xams where dose is matched to clinical indication); or iterative reconstructio n. REPORTING DATA: Count of CT and Cardiac NM exams in prio r 12 months: This patient has received 3 known CTs and 0 known card iac nuclear medicine studies in the 12 months prior to the current study. COMPARISON: BRAIN WO CONTRAST CT 11/13/2022 3:37 PM RADIATION DOSE METRICS: CTDI volume (mGy): 59.82 Total DLP (mGy-cm): 1066.26 FINDINGS: Brain: There is redemonstration of vasogenic yordan ma in the right frontal lobe with an associated air-fluid level. An extra-axi al collection along the right frontal convexity containing fluid and pneumocephalus measures 1.4 cm in depth. Mass effect results in fzrjv-fy-xjoa midline rhoda ft measuring approximately 7 mm. Findings appears similar to prior examinatio n. Cerebral ventricles: No ventriculomegaly. Paranasal sinuses: Mucosal thickening in the lef t sphenoid sinus. Mastoid air cells: Visualized mastoid air cells are well aerated. Bones/joints: Mild degenerative changes of the temporomandibular joints. There are postsurgical changes related to a right fron andreina craniotomy. Soft tissues: Unremarkable. Vasculature: Atherosclerotic calcification of th e carotid siphons. IMPRESSION: 1. No significant change from prior examination. 2. Redemonstration of vasogenic edema in the rig ht frontal lobe with an adjacent extra-axial fluid collection. M ultiple pockets of air are visualized. 3. Umqjv-kl-koej midline shift measures 7 mm. Michael Mcnulty MD On 11/22/2022 15:28:04; [id number] 2022-11-22 13:58:46-00:00 Radiation Dose CTDIVOL = 59. 82 (mGy): DLP = 1066.26 (mGy-cm) TIR PROCEDURE INFORMATION: Exam: CT Head Without Contrast Exam date and time: 11/22/2022 1:38 PM Age: 67 years old Clinical indication: /brain abscess TECHNIQUE: Imaging protocol: Computed tomography of the hea d without contrast. Radiation optimization: All CT scans at this facility use at least one of these dose optimization techniques: automated exposure control; mA and/or kV adjustment per patient size (includes targeted e xams where dose is matched to clinical indication); or iterative reconstructio n. REPORTING DATA: Count of CT and Cardiac NM exams in prio r 12 months: This patient has received 3 known CTs and 0 known card iac nuclear medicine studies in the 12 months prior to the current study. COMPARISON: BRAIN WO CONTRAST CT 11/13/2022 3:37 PM RADIATION DOSE METRICS: CTDI volume (mGy): 59.82 Total DLP (mGy-cm): 1066.26 FINDINGS: Brain: There is redemonstration of vasogenic yordan ma in the right frontal lobe with an associated air-fluid level. An extra-axi al collection along the right frontal convexity containing fluid and pneumocephalus measures 1.4 cm in depth. Mass effect results in nblme-at-hmvp midline rhoda ft measuring approximately 7 mm. Findings appears similar to prior examinatio n. Cerebral ventricles: No ventriculomegaly. Paranasal sinuses: Mucosal thickening in the lef t sphenoid sinus. Mastoid air cells: Visualized mastoid air cells are well aerated. Bones/joints: Mild degenerative changes of the temporomandibular joints. There are postsurgical changes related to a right fron andreina craniotomy. Soft tissues: Unremarkable. Vasculature: Atherosclerotic calcification of th e carotid siphons. IMPRESSION: 1. No significant change from prior examination. 2. Redemonstration of vasogenic edema in the rig ht frontal lobe with an adjacent extra-axial fluid collection. M ultiple pockets of air are visualized. 3. Abyxj-rm-ykbn midline shift measures 7 mm. Michael Mcnulty MD On 11/22/2022 15:28:04; [id number] 2022-11-22 13:57:09-00:00 PROCEDURE INFORMATION: T[facility]R Exam: XR Abdomen Exam date and time: 11/22/2022 1:00 PM Age: 67 years old Clinical indication: /admission TECHNIQUE: Imaging protocol: Radiologic exam of the abdomen . Views: Frontal supine view of the abdomen. 1 Vie w. COMPARISON: ABDOMEN AP DX 11/06/2022 6:06 PM FINDINGS: Tubes, catheters and devices: Hernia mesh projec ts over the lower abdomen. Gastrointestinal tract: There is a non-o bstructive bowel gas pattern. There is no abnormal dilatation of bowel loops. T here is no pneumatosis or mass effect. Bones/joints: Unremarkable. Soft tissues: No abnormal radiopaque densities. IMPRESSION: No acute findings. Jonah Goncalves MD On 11/22/2022 14:31:39; VR-MX__ _[id number] 2022-11-22 13:57:09-00:00 PROCEDURE INFORMATION: T[facility] Exam: XR Abdomen Exam date and time: 11/22/2022 1:00 PM Age: 67 years old Clinical indication: /admission TECHNIQUE: Imaging protocol: Radiologic exam of the abdomen . Views: Frontal supine view of the abdomen. 1 Vie w. COMPARISON: ABDOMEN AP DX 11/06/2022 6:06 PM FINDINGS: Tubes, catheters and devices: Hernia mesh projec ts over the lower abdomen. Gastrointestinal tract: There is a non-o bstructive bowel gas pattern. There is no abnormal dilatation of bowel loops. T here is no pneumatosis or mass effect. Bones/joints: Unremarkable. Soft tissues: No abnormal radiopaque densities. IMPRESSION: No acute findings. Jonah Goncalves MD On 11/22/2022 14:31:39; VR-MX__ _[id number] 2022-11-21 21:08:02-00:00 PROCEDURE INFORMATION: T[facility] Exam: XR Chest Exam date and time: 11/21/2022 9:34 PM Age: 67 years old Clinical indication: /admission TECHNIQUE: Imaging protocol: Radiologic exam of the chest. Views: 1 view. COMPARISON: CHEST 1VIEW DX 11/06/2022 6:06 PM FINDINGS: Tubes, catheters and devices: Right-sided centra l catheter tip projects over the superior vena cava. Lungs: Mild central pulmonary vascular congestio n. Pleural spaces: Unremarkable. No pleural effusio n. No pneumothorax. Heart/Mediastinum: The cardiac silhouette is mod erately enlarged. Bones/joints: Unremarkable. IMPRESSION: Mild central pulmonary vascular congestion. Michael Mcnulty MD On 11/21/2022 23:07:20; [id number] 2022-11-21 21:08:02-00:00 PROCEDURE INFORMATION: [facility] Exam: XR Chest Exam date and time: 11/21/2022 9:34 PM Age: 67 years old Clinical indication: /admission TECHNIQUE: Imaging protocol: Radiologic exam of the chest. Views: 1 view. COMPARISON: CHEST 1VIEW DX 11/06/2022 6:06 PM FINDINGS: Tubes, catheters and devices: Right-sided centra l catheter tip projects over the superior vena cava. Lungs: Mild central pulmonary vascular congestio n. Pleural spaces: Unremarkable. No pleural effusio n. No pneumothorax. Heart/Mediastinum: The cardiac silhouette is mod erately enlarged. Bones/joints: Unremarkable. IMPRESSION: Mild central pulmonary vascular congestion. Michael Mcnulty MD On 11/21/2022 23:07:20; [id number] 2022-11-13 16:16:41-00:00 Radiation Dose CTDIVOL = 62. 72 (mGy): DLP = 1128.98 (mGy-cm) TIR PROCEDURE INFORMATION: Exam: CT Head Without Contrast Exam date and time: 11/13/2022 3:37 PM Age: 67 years old Clinical indication: /seizure, rapid response TECHNIQUE: Imaging protocol: Computed tomography of the hea d without contrast. Radiation optimization: All CT scans at this facility use at least one of these dose optimization techniques: automated exposure control; mA and/or kV adjustment per patient size (includes targeted e xams where dose is matched to clinical indication); or iterative reconstructio n. REPORTING DATA: Count of CT and Cardiac NM exams in prio r 12 months: This patient has received 2 known CTs and 0 known card iac nuclear medicine studies in the 12 months prior to the current study. COMPARISON: BRAIN WO CONTRAST CT 11/11/2022 10:53 AM RADIATION DOSE METRICS: CTDI volume (mGy): 62.72 Total DLP (mGy-cm): 1128.98 FINDINGS: Brain: - leftward midline shift now measures 9 mm, prev iously measures 6-7 mm. - diffuse confluent edema of the right f rontal lobe appears to have progressed from prior. - right frontal craniotomy with a extra-axial fl uid collection and pneumocephalus deep to the craniotomy. Size of f luid collection has mildly increased currently measuring 1.5 cm, previously measured 1.3 cm. - basal cisterns are patent. -likely beam hardening artifact in the left post erior fossa and right middle cranial fossa. L0 Cerebral ventricles: Partial effacement of the r ight lateral ventricle. No acute hydrocephalus. Paranasal sinuses: Visualized sinuses are unrema rkable. No fluid levels. Mastoid air cells: Visualized mastoid air cells are well aerated. Bones/joints: No acute fracture or suspicious os seous lesion. Soft tissues: Swelling of the right late ral scalp with additional subcutaneous foci of air. Irregular hyperdensity adjacent to the left lens , potentially artifact. IMPRESSION: 1. Progressive edema of the right frontal lobe w ith a leftward midline shift of 9 mm, previously measured 6-7 mm. 2. Mildly enlarging extra-axial fluid and air fi lled collection deep to the right frontal craniotomy cur rently measuring 1.5 cm, previously measured 1.3 cm. 3. Partial effacement of the right lateral ventr icle, no acute hydrocephalus. 4. Basal cisterns are patent. No additional brai n herniation aside from above-mentioned midline shift. 5. There is a irregular hyperdensity adjacent to the left lens, potentially related to motion artifact. Please correlate wit h ophthalmological exam or visual symptoms. Vladimir Pak MD On 11/13/2022 17:19:35; VR-[id number] 2022-11-13 16:16:41-00:00 Radiation Dose CTDIVOL = 62. 72 (mGy): DLP = 1128.98 (mGy-cm) [facility] PROCEDURE INFORMATION: Exam: CT Head Without Contrast Exam date and time: 11/13/2022 3:37 PM Age: 67 years old Clinical indication: /seizure, rapid response TECHNIQUE: Imaging protocol: Computed tomography of the hea d without contrast. Radiation optimization: All CT scans at this facility use at least one of these dose optimization techniques: automated exposure control; mA and/or kV adjustment per patient size (includes targeted e xams where dose is matched to clinical indication); or iterative reconstructio n. REPORTING DATA: Count of CT and Cardiac NM exams in prio r 12 months: This patient has received 2 known CTs and 0 known card iac nuclear medicine studies in the 12 months prior to the current study. COMPARISON: BRAIN WO CONTRAST CT 11/11/2022 10:53 AM RADIATION DOSE METRICS: CTDI volume (mGy): 62.72 Total DLP (mGy-cm): 1128.98 FINDINGS: Brain: - leftward midline shift now measures 9 mm, prev iously measures 6-7 mm. - diffuse confluent edema of the right f rontal lobe appears to have progressed from prior. - right frontal craniotomy with a extra-axial fl uid collection and pneumocephalus deep to the craniotomy. Size of f luid collection has mildly increased currently measuring 1.5 cm, previously measured 1.3 cm. - basal cisterns are patent. -likely beam hardening artifact in the left post erior fossa and right middle cranial fossa. L0 Cerebral ventricles: Partial effacement of the r ight lateral ventricle. No acute hydrocephalus. Paranasal sinuses: Visualized sinuses are unrema rkable. No fluid levels. Mastoid air cells: Visualized mastoid air cells are well aerated. Bones/joints: No acute fracture or suspicious os seous lesion. Soft tissues: Swelling of the right late ral scalp with additional subcutaneous foci of air. Irregular hyperdensity adjacent to the left lens , potentially artifact. IMPRESSION: 1. Progressive edema of the right frontal lobe w ith a leftward midline shift of 9 mm, previously measured 6-7 mm. 2. Mildly enlarging extra-axial fluid and air fi lled collection deep to the right frontal craniotomy cur rently measuring 1.5 cm, previously measured 1.3 cm. 3. Partial effacement of the right lateral ventr icle, no acute hydrocephalus. 4. Basal cisterns are patent. No additional brai n herniation aside from above-mentioned midline shift. 5. There is a irregular hyperdensity adjacent to the left lens, potentially related to motion artifact. Please correlate wit h ophthalmological exam or visual symptoms. Vladimir Pak MD On 11/13/2022 17:19:35; VR-[id number] 2022-11-11 11:06:41-00:00 Radiation Dose CTDIVOL = 57. 31 (mGy): DLP = 1066.26 (mGy-cm) [facility] These findings are communica tara to the patient's nurse Lani at 11/11/2022 1228 PM STOCK COUNTER. Ton Figueroa MD On 11/11/2022 13:09:22; KWAKU [id number] Radiation Dose CTDIVOL = 57.31 (mGy): DLP = 106 6.26 (mGy-cm) PROCEDURE INFORMATION: Exam: CT Head Without Contrast Exam date and time: 11/11/2022 10:53 AM Age: 67 years old Clinical indication: /hx of seizures and brain a bscess. Concerns for seizures during this admission. TECHNIQUE: Imaging protocol: Computed tomography of the hea d without contrast. Radiation optimization: All CT scans at this facility use at least one of these dose optimization techniques: automated exposure control; mA and/or kV adjustment per patient size (includes targeted e xams where dose is matched to clinical indication); or iterative reconstructio n. Other protocol: This patient has received [address] and 0 known cardiac nuclear medicine studies in the 12 months prior to the current study. COMPARISON: BRAIN WO CONTRAST CT 11/06/2022 6:32 PM RADIATION DOSE METRICS: CTDI volume (mGy): 57.31 Total DLP (mGy-cm): 1066.26 FINDINGS: Brain: Postoperative pneumocephalus appears decr eased. Right to left midline shift measures 7 mm. No mann ge in degree of right frontal lobe vasogenic edema. Slightly increased edema pot entially ischemia in the right temporal lobe versus artifact from beam hardening. Brain MRI without contrast would provide more detail. Cerebral ventricles: No ventriculomegaly. Pituitary gland and sella: Partial empty sella. Paranasal sinuses: Visualized sinuses are unrema rkable. No fluid levels. Mastoid air cells: Visualized mastoid air cells are well aerated. Bones/joints: Right frontal craniotomy change. Soft tissues: Postoperative subcutaneous emphyse ma appears decreased. IMPRESSION: 1. Right to left midline shift measures 7 mm. 2. No change in degree of right frontal lobe vas ogenic edema. 3. Slightly increased edema potentially ischemia in the right temporal lobe versus artifact from beam hardening. Brain MRI w ithout contrast would provide more detail. 4. Postoperative subcutaneous emphysema appears decreased. 5. Postoperative pneumocephalus appears decrease olga Figueroa MD On 11/11/2022 12:24:53; VR-J [id number] 2022-11-11 11:06:41-00:00 Radiation Dose CTDIVOL = 57. 31 (mGy): DLP = 1066.26 (mGy-cm) [facility] These findings are communica tara to the patient's nurse Lani at 11/11/2022 1228 PM [place]. Ton Figueroa MD On 11/11/2022 13:09:22; VR-JTH [id number] Radiation Dose CTDIVOL = 57.31 (mGy): DLP = 106 6.26 (mGy-cm) PROCEDURE INFORMATION: Exam: CT Head Without Contrast Exam date and time: 11/11/2022 10:53 AM Age: 67 years old Clinical indication: /hx of seizures and brain a bscess. Concerns for seizures during this admission. TECHNIQUE: Imaging protocol: Computed tomography of the hea d without contrast. Radiation optimization: All CT scans at this facility use at least one of these dose optimization techniques: automated exposure control; mA and/or kV adjustment per patient size (includes targeted e xams where dose is matched to clinical indication); or iterative reconstructio n. Other protocol: This patient has received [address] and 0 known cardiac nuclear medicine studies in the 12 months prior to the current study. COMPARISON: BRAIN WO CONTRAST CT 11/06/2022 6:32 PM RADIATION DOSE METRICS: CTDI volume (mGy): 57.31 Total DLP (mGy-cm): 1066.26 FINDINGS: Brain: Postoperative pneumocephalus appears decr eased. Right to left midline shift measures 7 mm. No mann ge in degree of right frontal lobe vasogenic edema. Slightly increased edema pot entially ischemia in the right temporal lobe versus artifact from beam hardening. Brain MRI without contrast would provide more detail. Cerebral ventricles: No ventriculomegaly. Pituitary gland and sella: Partial empty sella. Paranasal sinuses: Visualized sinuses are unrema rkable. No fluid levels. Mastoid air cells: Visualized mastoid air cells are well aerated. Bones/joints: Right frontal craniotomy change. Soft tissues: Postoperative subcutaneous emphyse ma appears decreased. IMPRESSION: 1. Right to left midline shift measures 7 mm. 2. No change in degree of right frontal lobe vas ogenic edema. 3. Slightly increased edema potentially ischemia in the right temporal lobe versus artifact from beam hardening. Brain MRI w ithout contrast would provide more detail. 4. Postoperative subcutaneous emphysema appears decreased. 5. Postoperative pneumocephalus appears decrease olga Figueroa MD On 11/11/2022 12:24:53; VR-JTH [id number] 2022-11-06 18:46:08-00:00 PROCEDURE INFORMATION: TIRR Exam: XR Abdomen Exam date and time: 11/06/2022 6:06 PM Age: 67 years old Clinical indication: /evaluation of stool burden TECHNIQUE: Imaging protocol: Radiologic exam of the abdomen . Views: Frontal supine view of the abdomen. 1 Vie w. COMPARISON: No relevant prior studies available. FINDINGS: Gastrointestinal tract: Small to moderate coloni c stool burden. No bowel dilation. Bones/joints: Unremarkable. IMPRESSION: Small to moderate colonic stool burden. Jerrell Cartagena MD On 11/07/2022 04:18:22; STEPH-MX [id number] 2022-11-06 18:46:08-00:00 Radiation Dose CTDIVOL = 57. 31 (mGy): DLP = 1066.26 (mGy-cm) TIRR PROCEDURE INFORMATION: Exam: CT Head Without Contrast Exam date and time: 11/06/2022 6:32 PM Age: 67 years old Clinical indication: /recent meningioma S/P rese ction now with brain abscess S/P washout 10/29/22 TECHNIQUE: Imaging protocol: Computed tomography of the hea d without contrast. Radiation optimization: All CT scans at this facility use at least one of these dose optimization techniques: automated exposure control; mA and/or kV adjustment per patient size (includes targeted e xams where dose is matched to clinical indication); or iterative reconstructio n. Other protocol: This patient has received 0 know n CTs and 0 known cardiac nuclear medicine studies in the 12 months prior to the current study. COMPARISON: No relevant prior studies available. RADIATION DOSE METRICS: CTDI volume (mGy): 57.31 Total DLP (mGy-cm): 1066.26 FINDINGS: Tubes, catheters and devices: There is a partial empty sella slightly balloon sella turcica. There is no cerebellar tonsillar ectopia. Brain: There is significant vasogenic edema in t he orbital frontal portion of the right frontal lobe exten ding into the rostrum/genu and proximal body of the corpus callosum. There is a midline shif t of the anterior septum pellucidum of 7 mm and attenuation of the right fronta l horn. There is an air-fluid level in the anterior cranial fossa with pneumo cephaly. There is vasogenic edema with attenuation of the sulci along the frontal conve xity. There is no acute parenchymal hemorrhage. Cerebral ventricles: See 'Brain' finding. Paranasal sinuses: Visualized sinuses are unrema rkable. No fluid levels. Mastoid air cells: Visualized middle ear cavity, antrum and mastoid air cells are normally aerated. Orbital cavities: The orbital globes are symmetr ically proptotic. There is no retrobulbar abnormality. Bones/joints: Patient is status post a right fro ntal craniotomy. There is postoperative pneumo cephaly particularl y in the anterior right cranial fossa. Below the craniotomy there is suspected epidural mixed density hygroma with a depth of 1 cm and minimal component of hemorrhag e along the convexity which measures 5 mm. Soft tissues: There is subgaleal emphysema of th e frontal scalp with skin ava in place and edema. IMPRESSION: Patient is status post a right front al craniotomy. Postoperative changes in the frontal polar and orbital frontal portion right frontal lobe with vasogenic edema and attenuation right front al horn with a 7 mm midline shift of the septum pellucidum as described. The re is no foraminal left ventricle. There is postoperative pneumo cephaly with an air-fluid level in the anterior cranial fossa and a epidural hygrom a with minimal component of acute blood as described. Juve Arrington MD On 11/07/2022 08:23:49; CEASARBB [id number] 2022-11-06 18:46:08-00:00 PROCEDURE INFORMATION: TIRR Exam: XR Abdomen Exam date and time: 11/06/2022 6:06 PM Age: 67 years old Clinical indication: /evaluation of stool burden TECHNIQUE: Imaging protocol: Radiologic exam of the abdomen . Views: Frontal supine view of the abdomen. 1 Vie w. COMPARISON: No relevant prior studies available. FINDINGS: Gastrointestinal tract: Small to moderate coloni c stool burden. No bowel dilation. Bones/joints: Unremarkable. IMPRESSION: Small to moderate colonic stool burden. Jerrell Cartagena MD On 11/07/2022 04:18:22; CEASARMX [id number] 2022-11-06 18:46:08-00:00 Radiation Dose CTDIVOL = 57. 31 (mGy): DLP = 1066.26 (mGy-cm) TIRR PROCEDURE INFORMATION: Exam: CT Head Without Contrast Exam date and time: 11/06/2022 6:32 PM Age: 67 years old Clinical indication: /recent meningioma S/P rese ction now with brain abscess S/P washout 10/29/22 TECHNIQUE: Imaging protocol: Computed tomography of the hea d without contrast. Radiation optimization: All CT scans at this facility use at least one of these dose optimization techniques: automated exposure control; mA and/or kV adjustment per patient size (includes targeted e xams where dose is matched to clinical indication); or iterative reconstructio n. Other protocol: This patient has received 0 know n CTs and 0 known cardiac nuclear medicine studies in the 12 months prior to the current study. COMPARISON: No relevant prior studies available. RADIATION DOSE METRICS: CTDI volume (mGy): 57.31 Total DLP (mGy-cm): 1066.26 FINDINGS: Tubes, catheters and devices: There is a partial empty sella slightly balloon sella turcica. There is no cerebellar tonsillar ectopia. Brain: There is significant vasogenic edema in t he orbital frontal portion of the right frontal lobe exten ding into the rostrum/genu and proximal body of the corpus callosum. There is a midline shif t of the anterior septum pellucidum of 7 mm and attenuation of the right fronta l horn. There is an air-fluid level in the anterior cranial fossa with pneumo cephaly. There is vasogenic edema with attenuation of the sulci along the frontal conve xity. There is no acute parenchymal hemorrhage. Cerebral ventricles: See 'Brain' finding. Paranasal sinuses: Visualized sinuses are unrema rkable. No fluid levels. Mastoid air cells: Visualized middle ear cavity, antrum and mastoid air cells are normally aerated. Orbital cavities: The orbital globes are symmetr ically proptotic. There is no retrobulbar abnormality. Bones/joints: Patient is status post a right fro ntal craniotomy. There is postoperative pneumo cephaly particularl y in the anterior right cranial fossa. Below the craniotomy there is suspected epidural mixed density hygroma with a depth of 1 cm and minimal component of hemorrhag e along the convexity which measures 5 mm. Soft tissues: There is subgaleal emphysema of th e frontal scalp with skin ava in place and edema. IMPRESSION: Patient is status post a right front al craniotomy. Postoperative changes in the frontal polar and orbital frontal portion right frontal lobe with vasogenic edema and attenuation right front al horn with a 7 mm midline shift of the septum pellucidum as described. The re is no foraminal left ventricle. There is postoperative pneumo cephaly with an air-fluid level in the anterior cranial fossa and a epidural hygrom a with minimal component of acute blood as described. Juve Arrington MD On 11/07/2022 08:23:49; STEPH-BB [id number] 2022-11-06 18:46:05-00:00 PROCEDURE INFORMATION: TIRR Exam: XR Chest Exam date and time: 11/06/2022 6:06 PM Age: 67 years old Clinical indication: /checking midline placement TECHNIQUE: Imaging protocol: Radiologic exam of the chest. Views: 1 view. COMPARISON: No relevant prior studies available. FINDINGS: Tubes, catheters and devices: Right internal jug ular central venous catheter tip projects over the cavoatrial junction. Lungs: No focal consolidation. Pleural spaces: Unremarkable. No pleural effusio n. No pneumothorax. Heart/Mediastinum: Mild cardiomegaly. Bones/joints: No acute abnormality. IMPRESSION: Right internal jugular centr al venous catheter tip projects over the cavoatrial junction. Jerrell Cartagena MD On 11/07/2022 04:17:43; VR-MX [id number] 2022-11-06 18:46:05-00:00 PROCEDURE INFORMATION: TIRR Exam: XR Chest Exam date and time: 11/06/2022 6:06 PM Age: 67 years old Clinical indication: /checking midline placement TECHNIQUE: Imaging protocol: Radiologic exam of the chest. Views: 1 view. COMPARISON: No relevant prior studies available. FINDINGS: Tubes, catheters and devices: Right internal jug ular central venous catheter tip projects over the cavoatrial junction. Lungs: No focal consolidation. Pleural spaces: Unremarkable. No pleural effusio n. No pneumothorax. Heart/Mediastinum: Mild cardiomegaly. Bones/joints: No acute abnormality. IMPRESSION: Right internal jugular centr al venous catheter tip projects over the cavoatrial junction. Jerrell Cartagena MD On 11/07/2022 04:17:43; JAYDEN [id number]
[2023-03-28 00:16] LABS: Absolute Lymphocytes (CBC) 1.9 K/uL (0.7-4.9); Hematocrit 31.6 % (36.0-45.0); MCV 80.4 fL (80-100); MPV 7.6 fL (7.6-11.3); RBC Red Blood Cell Count 3.94 M/uL (3.86-4.86)
[2023-03-28 00:33] LABS: Albumin 3.3 g/dL (3.4-5.0); Bilirubin Total 0.4 mg/dL (0.2-1.0); Potassium 3.1 mEq/L (3.5-5.1); Protein, Total 6.8 g/dL (6.4-8.2)
--- NOTE | 2023-03-28 02:30 | EDPHYS ---
Physician Documentation [facility] Name: Nathalia Cooley Age: 68 yrs Sex: Female : 1955 Arrival Date: 03/27/2023 Time: 22:25 Bed 17 Private MD: Robert Gleason ED Physician Juan M Monsivais HPI: 03/28 01:23 This 68 yrs old Black Female presents to ER via Ambulatory with complaints of Head rt swelling, Headache. 01:23 Patient presents to the ED with swelling to the right advent region where she had a rt prior craniotomy as well as a headache since Thursday. She states that over the past day, she has been somewhat off balance. She denies other acute complaints at this time. Pain is aching nature, nonradiating, no other aggravating alleviating factors. She denies other new neurologic symptoms.. Historical: - PMHx: 03/27 22:44 Congestive heart failure; diabetes mellitus; Hypertensive disorder; brain tumor; kl - PSHx: 22:44 Craniotomy; kl - Immunization history:: Adult Immunizations up to date. - Social history:: Smoking status: Patient denies any tobacco usage or history of. - Family history:: not pertinent. ROS: 03/28 01:23 Constitutional: Negative for fever, chills, and weight loss, Cardiovascular: Negative rt for chest pain, palpitations, and edema, Respiratory: Negative for shortness of breath, cough, wheezing, and pleuritic chest pain, Abdomen/GI: Negative for abdominal pain, nausea, vomiting, diarrhea, and constipation, MS/Extremity: Negative for injury and deformity, Skin: Negative for injury, rash, and discoloration, Psych: Negative for depression, anxiety, suicide ideation, homicidal ideation, and hallucinations. Neuro: Positive for dizziness, headache. Exam: 01:23 Constitutional: This is a well developed, well nourished patient who is awake, alert, rt and in no acute distress. Head/Face: Normocephalic, atraumatic. Chest/axilla: Normal chest wall appearance and motion. Nontender with no deformity. No lesions are appreciated. Cardiovascular: Regular rate and rhythm with a normal S1 and S2. No gallops, murmurs, or rubs. Normal PMI, no JVD. No pulse deficits. Respiratory: Lungs have equal breath sounds bilaterally, clear to auscultation and percussion. No rales, rhonchi or wheezes noted. No increased work of breathing, no retractions or nasal flaring. Abdomen/GI: Soft, non-tender, with normal bowel sounds. No distension or tympany. No guarding or rebound. No evidence of tenderness throughout. Skin: Warm, dry with normal turgor. Normal color with no rashes, no lesions, and no evidence of cellulitis. MS/ Extremity: Pulses equal, no cyanosis. Neurovascular intact. Full, normal range of motion. Neuro: Awake and alert, GCS 15, oriented to person, place, time, and situation. Cranial nerves II-XII grossly intact. Motor strength 5/5 in all extremities. Sensory grossly intact. Cerebellar exam normal. Normal gait. Psych: Awake, alert, with orientation to person, place and time. Behavior, mood, and affect are within normal limits. Vital Signs: 03/27 22:41 BP 207 / 82; Pulse 58; Resp 20; Temp 99.1; Pulse Ox 100% on R/A; Weight 97.98 kg (R); kl Height 5 ft. 7 in. ; Pain 8/10; 23:00 BP 187 / 89; Pulse 62; Resp 19 S; Pulse Ox 99% on R/A; ha1 03/28 00:00 BP 176 / 95; Pulse 95; Resp 18 S; Pulse Ox 100% on R/A; ha1 02:35 Pulse 53; Resp 22; Pulse Ox 99% ; vc1 02:50 BP 214 / 93; Pulse 60; Resp 16 S; Pulse Ox 98% on R/A; ha1 03:10 BP 209 / 93; Pulse 54; Resp 17; Pulse Ox 98% on R/A; ha1 04:13 BP 185 / 92; Pulse 63; Resp 19 S; Pulse Ox 99% on R/A; ha1 05:00 BP 193 / 91; Pulse 63; Resp 20 S; Pulse Ox 97% on R/A; ha1 05:45 BP 194 / 96; Pulse 61; Resp 18 S; Pulse Ox 98% on R/A; ha1 03/27 22:41 Body Mass Index 33.83 (97.98 kg, 170.18 cm) 03/27 22:41 Pain Scale: Adult kl MDM: 03/27 22:55 Patient medically screened. rt 03/28 06:10 Differential diagnosis: Intracranial hemorrhage, postoperative seroma. Data reviewed: rt vital signs, nurses notes. Management of patient was discussed with the following: Rf Technician: Discussed with accepting neurologist at [facility], recommends the patient go to the trauma ICU. I considered the following discharge prescriptions or medication management in the emergency department Medications were administered in the Emergency Department. See MAR. Independent interpretation of the following test(s) in the Emergency Department CT Scan: My interpretation is Epidural fluid collection seen on interpretation of the CT images. Discussion of test interpretation with radiology: I had a discussion with radiology regarding a test interpretation. . Care significantly affected by the following chronic conditions: Frontal lobe mass. Counseling: I had a detailed discussion with the patient and/or guardian regarding: the historical points, exam findings, and any diagnostic results supporting the discharge/admit diagnosis, lab results, the need to transfer to another facility. Response to treatment: the patient's symptoms have mildly improved after treatment. 03/27 23:03 Order name: CBC with Diff; Complete Time: 00:37 rt 03/27 23:03 Order name: CMP; Complete Time: 00:37 rt 03/27 23:03 Order name: CT Head Brain wo Cont rt Administered Medications: 02:26 Drug: Potassium Chloride PO Liquid 40 mEq Route: PO; ha1 03:00 Drug: hydrALAZINE IVP 10 mg Route: IVP; Site: left forearm; ha1 03:25 Drug: hydrALAZINE IVP 10 mg Route: IVP; Site: left forearm; ha1 04:25 Drug: Ondansetron IVP 4 mg Route: IVP; Site: right antecubital; ha1 04:28 Drug: morphine IVP or IV 4 mg Route: IVP; Infused Over: 4 mins; Site: right antecubital;ha1 06:15 Drug: hydrALAZINE IVP 10 mg Route: IVP; Site: right antecubital; ha1 Disposition Summary: 03/28/23 02:30 Transfer Ordered Transfer Location: [facility] rt Reason: Higher level of care rt Condition: Fair rt Problem: new rt Symptoms: are unchanged rt Accepting Physician: Dr. Bone(03/28/23 06:23) ha1 Diagnosis - Epidural fluid collection rt Forms: - Medication Reconciliation Form rt - SBAR form rt Critical care time excluding procedures: 06:10 Critical care time: Bedside Care: 30 minutes, Consultation: 10 minutes. Total time: 40 rt minutes Signatures: Dispatcher [employer] Nelly Gautam RN RN kl Ayala, Heidy, RN RN ha1 Juan M Monsivais MD MD rt Corrections: (The following items were deleted from the chart) 06:23 02:30 Dr. Bone rt ha1
--- NOTE | 2023-03-28 02:30 | ER ---
Nurse's Notes 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 Coronavirus screen: Vaccine status: Patient reports receiving the 2nd dose of the covid vaccine. Ebola Screen: Patient negative for fever greater than or equal to 101.5 degrees Fahrenheit, and additional compatible Ebola Virus Disease symptoms. Initial Sepsis Screen: Does the patient meet any 2 criteria? No. Patient's initial sepsis screen is negative. Does the patient have a suspected source of infection? No. Patient's initial sepsis screen is negative. Risk Assessment: Do you want to hurt yourself or someone else? Patient reports no desire to harm self or others. 22:41 Method Of Arrival: Ambulatory 22:41 Acuity: PANCHITO 2 22:46 Onset of symptoms was March 27, 2023. ha1 Triage Assessment: 22:45 Headache History: The patient has had previous headaches and this one is different than kl previous episodes. General: Appears uncomfortable, Behavior is calm, cooperative. Pain: Pain currently is 9 out of 10 on a pain scale. Also complains of unbalanced. Historical: - PMHx: 22:44 Congestive heart failure; diabetes mellitus; Hypertensive disorder; brain tumor; kl - PSHx: 22:44 Craniotomy; kl - Immunization history:: Adult Immunizations up to date. - Social history:: Smoking status: Patient denies any tobacco usage or history of. - Family history:: not pertinent. Screenin:46 [facility] ED Fall Risk Assessment (Adult) History of falling in the last 3 months, ha1 including since admission No falls in past 3 months (0 pts) Confusion or Disorientation No (0 pts) Intoxicated or Sedated No (0 pts) Impaired Gait No (0 pts) Mobility Assist Device Used No (0 pt) Altered Elimination No (0 pt) Score/Fall Risk Level 0 - 2 = Low Risk Oriented to surroundings, Maintained a safe environment, Educated pt \T\ family on fall prevention, incl call for assistance when getting out of bed. 03/28 01:09 Abuse screen: Denies threats or abuse. Denies injuries from another. Nutritional ha1 screening: No deficits noted. Tuberculosis screening: No symptoms or risk factors identified. Assessment: 03/27 22:46 General: Appears comfortable, Behavior is calm, cooperative. Pain: Complains of pain in ha1 right side of head Pain does not radiate. Pain currently is 8 out of 10 on a pain scale. Quality of pain is described as pressure, Pain began 1 day ago. Neuro: Level of Consciousness is awake, alert, obeys commands, Oriented to person, place, time, situation. 22:46 Cardiovascular: Patient's skin is warm and dry. Respiratory: Airway is patent ha1 Respiratory effort is even, unlabored, Respiratory pattern is regular, symmetrical. Musculoskeletal: Circulation, motion, and sensation intact. Range of motion: intact in all extremities. 23:40 Reassessment: Patient and/or family updated on plan of care and expected duration. Pain ha1 level reassessed. Patient is alert, oriented x 3, equal unlabored respirations, skin warm/dry/pink. Notified charge nurse of need for an IV. 03/28 00:40 Reassessment: Patient and/or family updated on plan of care and expected duration. Pain ha1 level reassessed. Patient is alert, oriented x 3, equal unlabored respirations, skin warm/dry/pink. 01:40 Reassessment: Patient and/or family updated on plan of care and expected duration. Pain ha1 level reassessed. Patient is alert, oriented x 3, equal unlabored respirations, skin warm/dry/pink. 02:50 Reassessment: Patient and/or family updated on plan of care and expected duration. Pain ha1 level reassessed. Patient is alert, oriented x 3, equal unlabored respirations, skin warm/dry/pink. notified Dr. Monsivais of elevated BP. 03:50 Reassessment: Patient and/or family updated on plan of care and expected duration. Pain ha1 level reassessed. Patient is alert, oriented x 3, equal unlabored respirations, skin warm/dry/pink. 04:30 Reassessment: Patient and/or family updated on plan of care and expected duration. Pain ha1 level reassessed. Patient is alert, oriented x 3, equal unlabored respirations, skin warm/dry/pink. 05:00 Reassessment: Patient and/or family updated on plan of care and expected duration. Pain ha1 level reassessed. Patient is alert, oriented x 3, equal unlabored respirations, skin warm/dry/pink. 05:45 Reassessment: Patient and/or family updated on plan of care and expected duration. Pain ha1 level reassessed. Patient is alert, oriented x 3, equal unlabored respirations, skin warm/dry/pink. awaiting on EMS. Vital Signs: 03/27 22:41 BP 207 / 82; Pulse 58; Resp 20; Temp 99.1; Pulse Ox 100% on R/A; Weight 97.98 kg (R); kl Height 5 ft. 7 in. ; Pain 8/10; 23:00 BP 187 / 89; Pulse 62; Resp 19 S; Pulse Ox 99% on R/A; ha1 03/28 00:00 BP 176 / 95; Pulse 95; Resp 18 S; Pulse Ox 100% on R/A; ha1 02:35 Pulse 53; Resp 22; Pulse Ox 99% ; vc1 02:50 BP 214 / 93; Pulse 60; Resp 16 S; Pulse Ox 98% on R/A; ha1 03:10 BP 209 / 93; Pulse 54; Resp 17; Pulse Ox 98% on R/A; ha1 04:13 BP 185 / 92; Pulse 63; Resp 19 S; Pulse Ox 99% on R/A; ha1 05:00 BP 193 / 91; Pulse 63; Resp 20 S; Pulse Ox 97% on R/A; ha1 05:45 BP 194 / 96; Pulse 61; Resp 18 S; Pulse Ox 98% on R/A; ha1 03/27 22:41 Body Mass Index 33.83 (97.98 kg, 170.18 cm) 03/27 22:41 Pain Scale: Adult kl ED Course: 03/27 22:29 Patient arrived in ED. mr 22:30 Robert Gleason MD is Private Physician. mr 22:44 Triage completed. kl 22:46 Patient has correct armband on for positive identification. Placed in gown. Bed in low ha1 position. Call light in reach. Side rails up X 1. 22:46 Arm band placed on right wrist. ha1 22:48 Juan M Monsivais MD is Attending Physician. rt 23:03 Colette Humphries RN is Primary Nurse. ha1 23:30 No provider procedures requiring assistance completed. Inserted saline lock: 20 gauge ha1 in right antecubital area, using aseptic technique. Blood collected. IV inserted by YOU Lopes. 23:49 CT Head Brain wo Cont In Process Unspecified. EDMS 03/28 01:11 Initiated transfer to [facility], spoke with Anna. wm 04:10 Called [facility] to get an update regarding bed placement, spoke with Katlyn, she stated wm they have a bed just waiting for it to be ready. 04:38 Anna with [facility] transfer center called to update stating they have to do a terminal wm cleaning of room then they can accept the pt. 04:59 Pt accepted for transfer to [facility] Neuro ICU by Dr. Bone at 0154 per Anna Mohan. wm 04:59 Called for transport for [facility], but they said it would be 3 hrs. wm 04:59 Called for transport, stated he couldn't approve OT, but he (Kedar) would have a truck here around 0630. 06:22 Patient transferred, IV remains in place. ha1 Administered Medications: 02:26 Drug: Potassium Chloride PO Liquid 40 mEq Route: PO; ha1 03:00 Drug: hydrALAZINE IVP 10 mg Route: IVP; Site: left forearm; ha1 03:25 Drug: hydrALAZINE IVP 10 mg Route: IVP; Site: left forearm; ha1 04:25 Drug: Ondansetron IVP 4 mg Route: IVP; Site: right antecubital; ha1 04:28 Drug: morphine IVP or IV 4 mg Route: IVP; Infused Over: 4 mins; Site: right antecubital;ha1 06:15 Drug: hydrALAZINE IVP 10 mg Route: IVP; Site: right antecubital; ha1 Medication: 01:11 VIS not applicable for this client. ha1 Outcome: 02:30 ER care complete, transfer ordered by . rt 06:21 Transferred by ground EMS to [facility], Transfer form completed. ha1 Note: Transfer by [facility] 06:21 Condition: stable 06:21 Discharge instructions given to patient, Instructed on the need for transfer, Demonstrated understanding of instructions. 06:23 Patient left the ED. ha1 Signatures: Dispatcher [employer] EDNelly Neil RN RN kl Shania Carson Wendy Caroline Sellers RN RN 1 Colette Humphries RN RN ha1 Juan M Monsivais MD MD rt Corrections: (The following items were deleted from the chart) 03:08 02:52 BP 209 / 93; Pulse 54bpm; Resp 17bpm; Pulse Ox 98% RA; ha1 ha1 03:39 00:00 BP 121 / 72; Pulse 95bpm; Resp 18bpm; Spontaneous; Pulse Ox 100% RA; ha1 ha1 03:39 02:50 BP 209 / 93; Pulse 54bpm; Resp 17bpm; Pulse Ox 98% RA; ha1 ha1
[2023-03-28] MEDS ORDERED: POTASSIUM CL SA 10 MEQ TAB PO ONE (02:31)
[2023-03-28] MEDS ORDERED: HYDRALAZINE HCL 20 MG/ML VIAL ONE ×3 (03:05→06:23)
[2023-03-28] MEDS ORDERED: MORPHINE 4 MG/ML SYR ONE (04:25)
[2023-03-28] MEDS ORDERED: ONDANSETRON 4 MG/2 ML VIAL ONE (04:25)
[2023-03-28 06:51] VITALS: TEMP 99.1
[2023-03-28 07:05] VITALS: BP 194/96; O2SAT 98
--- NOTE | 2023-03-28 23:13 | RAD REPORT ---
EXAM DESCRIPTION: CT - Head Brain Wo Cont - 03/28/2023 6:26 am ADDENDUM #1 These findings were communicated to Dr. Juan M Monsivais on 03/28/2023 12:07 AM ([employer]ENT). Electronically signed by: Regino Stewart MD 03/28/2023 1:02 AM CDT End of Addendum EXAM DESCRIPTION: Head Brain Wo Cont CLINICAL HISTORY: 68 years Female, headache, swelling TECHNIQUE: Helical CT axial images are obtained from the base of skull through the vertex without IV contrast. Multiplanar reconstruction. This exam was performed according to our departmental dose-opt imization program, which includes automated exposure control, adjustment of the mA and/or kV accordin g to patient size and/or use of iterative reconstruction technique. COMPARISON: October 28, 2022 FINDINGS: BRAIN: Interval change demonstrates resolution of previously demonstrated severe right fro ntal lobe vasogenic edema and resolution of leftward midline shift. There is mild to moderate encepha lomalacia of the anterior right frontal lobe. There is a moderate size right epidural fluid collectio n at the frontal craniotomy margins measuring up to 2.5 cm in greatest transverse diameter with low d ensity fluid. No acute infarct. No parenchymal hemorrhage. VENTRICLES: Ventricles are normal in size and configuration. No hydrocephalus. CALVARIUM: Bone windows show no skull fracture or calvarial lesions. PARANASAL SINUSES AND MASTOIDS: Visualized paranasal sinuses are clear. Mastoid air cells are clear . IMPRESSION: 1. No acute intracranial disease. 2. Interval resolution of previously demonstrated severe right frontal lobe vasogenic edema and lef tward midline shift. 3. Moderate size right epidural fluid collection, 2.5 cm greatest transverse diameter, at the tj ns of the right frontal craniotomy site with low density fluid most likely representing postoperative seroma/chronic epidural hematoma. No pneumocephalus. 4. Mild to moderate encephalomalacia anterior right frontal lobe. Electronically signed by: Regino Stewart MD 03/28/2023 12:14 AM CDT Due to temporary technical issues with the PACS/Fluency reporting system, reports are being signed by the in house radiologists without review as a courtesy to insure prompt reporting. The interpreting radiologist is fully responsible for the content of the report.
== END 2023-03-28 06:23 | disposition short-term general hospital (02) ==
LOC: ER 22:25
DX: G93.6 Cerebral edema (principal); R51.9 Headache, unspecified; Z98.890 Other specified postprocedural states
CPT/HCPCS: 85025; 36415; 80053; 70450; 99285; J0360 ×3; J2405

== ENCOUNTER 2024-07-01 11:58 | Emergency (ER) | payer OTHER ==
--- NOTE | 2024-07-01 13:39 | RAD REPORT ---
EXAMINATION: UPPER EXTREMITY VENOUS UNILATE CLINICAL INDICATION: Arm pain TECHNIQUE: Complete bilateral duplex sonography of the left upper extremity veins was performed. The examination included compression for vein patency, color Doppler imaging and flow augmentation in response to distal compression of the internal jugular,, subclavian, axillary, brachial, radial, ulna r, cephalic and basilic veins. .Grayscale, color and spectral analysis performed on all vessels COMPARISON: No prior exam. FINDINGS: The internal jugular, subclavian, axillary, brachial, basilic, cephalic, radial and ulnar veins are g enerally compressible and demonstrate augmentation. Color Doppler demonstrates good flow. 3.1 x 2.7 x 2.9 cm heterogeneous hypo to isoechoic structure is present within the left forearm. This does not contain vascularity. IMPRESSION: No evidence of venous thrombus left arm. 3.1 cm mass left forearm may represent a hematoma. Neoplasm is considered less likely. It is recommen ded that patient have an ultrasound in 4 weeks for reevaluation
--- NOTE | 2024-07-01 13:41 | RAD REPORT ---
EXAMINATION:Upper Ext Artery Uni Hiram CLINICAL INDICATION: Arm pain TECHNIQUE: Arterial duplex ultrasound was performed of the left upper extremity with real-time, color-flow, and spectral wave Doppler evaluation. COMPARISON: No prior exam. FINDINGS: Common carotid, subclavian, axillary, brachial, ulnar and radial arteries demonstrate mostly monophas ic waveforms. No high-grade stenosis/occlusion seen IMPRESSION: No significant vascular abnormality displayed
--- NOTE | 2024-07-01 14:36 | ER ---
Nurse's Notes [facility] Name: Nathalia Fall Age: 69 yrs Sex: Female : 1955 Arrival Date: 07/01/2024 Time: 11:58 Bed DX3 Private MD: Diagnosis: Arm Swelling Presentation: 07/01 12:18 Chief complaint: Patient states: left arm swollen x2 weeks. Its hurting and I can't tm6 sleep at night. I was given tramadol but I haven't taken it yet. Coronavirus screen: Vaccine status: Patient reports receiving the 2nd dose of the covid vaccine. Ebola Screen: Patient negative for fever greater than or equal to 101.5 degrees Fahrenheit, and additional compatible Ebola Virus Disease symptoms Patient denies exposure to infectious person. Patient denies travel to an Ebola-affected area in the 21 days before illness onset. No symptoms or risks identified at this time. Initial Sepsis Screen: Does the patient meet any 2 criteria? No. Patient's initial sepsis screen is negative. Does the patient have a suspected source of infection? No. Patient's initial sepsis screen is negative. Risk Assessment: Do you want to hurt yourself or someone else? Patient reports no desire to harm self or others. Onset of symptoms was July 17, 2024. 12:18 Method Of Arrival: Ambulatory tm6 12:18 Acuity: PANCHITO 3 tm6 Triage Assessment: 12:19 General: Appears in no apparent distress. Behavior is calm, cooperative. Pain: tm6 Complains of pain in left arm Pain currently is 7 out of 10 on a pain scale. EENT: No signs and/or symptoms were reported regarding the EENT system. Neuro: Level of Consciousness is awake, alert, obeys commands, Oriented to person, place, time, situation. Cardiovascular: Patient's skin is warm and dry. Respiratory: Airway is patent Respiratory effort is even, unlabored, Respiratory pattern is regular, symmetrical. GI: No signs and/or symptoms were reported involving the gastrointestinal system. Abdomen is flat, non-distended. : No signs and/or symptoms were reported regarding the genitourinary system. Derm: swelling to left arm. Musculoskeletal: Swelling present in left arm Reports pain in left arm Pain is 7 out of 10 on a pain scale. Historical: - Allergies: 12:16 steroids; tm6 - PMHx: 12:16 BRAIN TUMOR; Congestive heart failure; diabetes mellitus; Hypertensive disorder; breast tm6 cancer (Craniotomy); End stage renal disease; - PSHx: 12:16 Craniotomy; tm6 - Immunization history:: Client reports receiving the 2nd dose of the Covid vaccine. - Infectious Disease History:: Denies. - Social history:: Smoking status: Patient denies any tobacco usage or history of. Patient/guardian denies using alcohol. Screenin:50 [facility] ED Fall Risk Assessment (Adult) History of falling in the last 3 months, tm6 including since admission No falls in past 3 months (0 pts) Confusion or Disorientation No (0 pts) Intoxicated or Sedated No (0 pts) Impaired Gait No (0 pts) Mobility Assist Device Used No (0 pt) Altered Elimination No (0 pt) Score/Fall Risk Level 0 - 2 = Low Risk Oriented to surroundings, Maintained a safe environment, Educated pt \T\ family on fall prevention, incl call for assistance when getting out of bed. Abuse screen: Denies threats or abuse. Denies injuries from another. Nutritional screening: No deficits noted. Tuberculosis screening: No symptoms or risk factors identified. Assessment: 14:50 Reassessment: Patient and/or family updated on plan of care and expected duration. Pain tm6 level reassessed. Patient is alert, oriented x 3, equal unlabored respirations, skin warm/dry/pink. see triage assessment. Vital Signs: 12:15 BP 124 / 71; Pulse 70; Resp 17; Temp 98.5(O); Pulse Ox 100% on R/A; MAP 87 mmHg; Weight tm6 92.99 kg; Height 5 ft. 7 in. ; Pain 6/10; 14:45 BP 129 / 83; Pulse 62; Resp 17; Temp 98.4; Pulse Ox 98% on R/A; Pain 5/10; tm6 12:15 Body Mass Index 32.11 (92.99 kg, 170.18 cm) tm6 12:15 Pain Scale: Adult tm6 14:45 Pain Scale: Adult tm6 ED Course: 12:03 Patient arrived in ED. mg5 12:05 Alfred Garcia MD is Attending Physician. ec2 12:18 Arm band placed on left wrist. tm6 12:18 Patient has correct armband on for positive identification. tm6 12:19 Triage completed. tm6 13:08 UPPER EXTREMITY VENOUS UNILATE In Process Unspecified. EDMS 13:19 Upper Ext Artery Uni Hiram In Process Unspecified. EDMS 14:50 Provided Education on: use of prescription. tm6 14:50 No provider procedures requiring assistance completed. Patient did not have IV access tm6 during this emergency room visit. Administered Medications: 14:49 Drug: Acetaminophen PO 1000 mg PO once Route: PO; tm6 14:49 Follow up: Response: Medication administered at discharge. tm6 14:49 Drug: Methocarbamol PO 500 mg PO once Route: PO; tm6 14:49 Follow up: Response: Medication administered at discharge. tm6 Medication: 14:50 VIS not applicable for this client. tm6 Outcome: 14:35 Discharge ordered by . ec2 14:50 Discharged to home ambulatory, tm6 14:50 Condition: stable 14:50 Discharge instructions given to patient, Instructed on discharge instructions, follow up and referral plans. medication usage, Demonstrated understanding of instructions, follow-up care, medications, Prescriptions given X 1, 14:51 Patient left the ED. tm6 Signatures: Dispatcher [employer] EDBerna Aguillon mg5 Alfred Garcia MD MD ec2 Kim Messer RN RN tm6
--- NOTE | 2024-07-01 14:36 | EDPHYS ---
Physician Documentation [facility] Name: Nathalia Fall Age: 69 yrs Sex: Female : 1955 Arrival Date: 07/01/2024 Time: 11:58 Bed DX3 Private MD: ED Physician Alfred Garcia HPI: 07/01 14:34 This 69 yrs old Black Female presents to ER via Ambulatory with complaints of Arm ec2 Problem - SWELLING. 14:34 Patient arrives today for evaluation of left upper extremity swelling. Patient reports ec2 that she is undergoing initial workup to have a graft placed in the left upper extremity, is having swelling after the surgery. Reports otherwise no concerns, no redness, no fevers or chills.. Historical: - Allergies: 12:16 steroids; tm6 - PMHx: 12:16 BRAIN TUMOR; Congestive heart failure; diabetes mellitus; Hypertensive disorder; breast tm6 cancer (Craniotomy); End stage renal disease; - PSHx: 12:16 Craniotomy; tm6 - Immunization history:: Client reports receiving the 2nd dose of the Covid vaccine. - Infectious Disease History:: Denies. - Social history:: Smoking status: Patient denies any tobacco usage or history of. Patient/guardian denies using alcohol. ROS: 14:34 Constitutional: as per hpi ec2 Exam: 14:34 Constitutional: GEN: NAD Head: atraumatic Eyes: EOMI Ears: External ears are ec2 normal. CV: regular rate LUNGS: no respiratory distress ABD: non-distended SKIN: Left upper extremity with no erythema, swelling is noted. MSK: no evidence of trauma Vital Signs: 12:15 BP 124 / 71; Pulse 70; Resp 17; Temp 98.5(O); Pulse Ox 100% on R/A; MAP 87 mmHg; Weight tm6 92.99 kg; Height 5 ft. 7 in. ; Pain 6/10; 14:45 BP 129 / 83; Pulse 62; Resp 17; Temp 98.4; Pulse Ox 98% on R/A; Pain 5/10; tm6 12:15 Body Mass Index 32.11 (92.99 kg, 170.18 cm) tm6 12:15 Pain Scale: Adult tm6 14:45 Pain Scale: Adult tm6 MDM: 14:33 ED course: Ultrasound shows no significant vascular abnormality, does have hematoma ec2 which is consistent with patient's recent manipulation of the left upper extremity. When checked on ice, will discharge home. Return precautions given . 14:34 Data reviewed: vital signs. ED course: Patient arrives today for left upper extremity ec2 swelling. Examination remarkable for skin findings as above. Differential included processes such as arterial pathology, DVT, cellulitis.. 14:35 Patient medically screened. ec2 07/01 12:28 Order name: Upper Ext Artery Uni Hiram; Complete Time: 14:33 EDMS 07/01 12:28 Order name: UPPER EXTREMITY VENOUS UNILATE; Complete Time: 14:33 EDMS 07/01 14:33 Order name: Ice; Complete Time: 14:49 ec2 Administered Medications: 14:49 Drug: Acetaminophen PO 1000 mg PO once Route: PO; tm6 14:49 Follow up: Response: Medication administered at discharge. tm6 14:49 Drug: Methocarbamol PO 500 mg PO once Route: PO; tm6 14:49 Follow up: Response: Medication administered at discharge. tm6 Disposition Summary: 07/01/24 14:35 Discharge Ordered Notes: Location: Home ec2 Condition: Stable ec2 Diagnosis - Arm Swelling ec2 Followup: ec2 - With: Private Physician - When: - Reason: Re-evaluation by your physician Discharge Instructions: - Discharge Summary Sheet ec2 Forms: - Medication Reconciliation Form ec2 - Antibiotic Education ec2 - Prescription Opioid Use ec2 - Patient Portal Instructions ec2 - Leadership Thank You Letter ec2 Prescriptions: - methocarbamol 500 mg Oral tablet - take 1 tablet ORAL route 4 times per day; 20 tablet; Refills: 0, Product ec2 Selection Permitted Signatures: Dispatcher [employer] EDAlfred Crystal MD MD ec2 Kim Messer RN RN tm6 Corrections: (The following items were deleted from the chart) 12: 12:24 Extremity Venous Uni Ltd+[email or web address] ordered. EDMT LUCIAMS
[2024-07-01] MEDS ORDERED: methocarbamoL 500 MG TAB ONE (14:42)
[2024-07-01] MEDS ORDERED: ACETAMINOPHEN 500 MG TAB ONE (14:42)
[2024-07-01 16:59] VITALS: BP 124/71; TEMP 98.5; O2SAT 100
== END 2024-07-01 14:51 | disposition home or self-care (01) ==
LOC: ER 11:58
DX: R22.32 Localized swelling, mass and lump, left upper limb (principal)
CPT/HCPCS: 93931; 93971; 99283

== ENCOUNTER 2024-08-29 15:41 | Emergency (ER) | payer OTHER ==
--- NOTE | 2024-08-29 19:39 | RAD REPORT ---
EXAMINATION: US UPPER EXTREMITY VENOUS UNILATE CLINICAL INDICATION: Female, 69 years old. [facility] Numbness/tingling;Swelling Bed Name: 13 TECHNIQUE: Complete venous duplex sonography of the left upper extremity was performed. The examinati on included compression for vein patency, color Doppler imaging and flow augmentation in response to distal compression of the internal jugular, brachiocephalic, subclavian, axillary, brachial, radia l, ulnar, cephalic and basilic veins. COMPARISON: No prior exam. FINDINGS: Duplex sonography testing of the veins of the left upper extremity is completed. Color flow imaging s hows all veins to be compressible with appropriate color filling. Pulsatile and phasic flow is present within the upper extremity deep and superficial veins examined. IMPRESSION: There is no deep vein or superficial vein thrombosis.
--- NOTE | 2024-08-29 20:02 | RAD REPORT ---
EXAMINATION: US Upper Ext Artery Uni Hiram CLINICAL INDICATION: Female, 69 years old. [facility] upper right arm at fistula SWELLING Bed Name: IW6 TECHNIQUE: Arterial duplex ultrasound was performed of the Left upper extremity with real-time, color -flow, and spectral wave Doppler evaluation. COMPARISON: Venous duplex 07/01/2024. FINDINGS: Monophasic waveforms are seen throughout the evaluated Left upper extremity arterial system , to the level of the radial and ulnar arteries. Arteriovenous fistula with no evidence of thrombosis or stenosis along the inflow or outflow regions. Somewhat elevated velocities within the f istula, probably within normal limits. Slightly more bulky and well-circumscribed appearance of the hypoechoic structure in the anterior aspect of the inner forearm, now measuring 1.7 x 0.9 x 1.6 cm. P reviously, this measured 3.1 x 2.7 x 0.8 cm. It is situated in close proximity to the fistula, with evidence of communication or internal vascular flow. Mild subcutaneous soft tissue edema is visualize d. IMPRESSION: Patent arteriovenous fistula. No evidence of stenosis. Ovoid hypoechoic 1.7 cm structure along the inner forearm, with no appreciable vascular could represe nt a small thrombosed venous varix, or evolving hematoma, decreased in size since the prior exam.
--- NOTE | 2024-08-29 20:20 | EDPHYS ---
Physician Documentation [facility] Name: Nathalia Cooley Age: 69 yrs Sex: Female : 1955 Arrival Date: 08/29/2024 Time: 15:41 Bed 13 Private MD: ED Physician Bridget Abraham HPI: 08/29 17:37 This 69 yrs old Black Female presents to ER via Ambulatory with complaints of Arm gb1 Bruising. 17:37 69-year-old -[place] female with a left forearm shunt that is stinging and a gb1 little bit painful with some bruising around it at the time of dialysis on Thursday. They tried to use it again recently and he had the same symptoms on presentation. Patient states her arm is swelling up as well. It has been like that for the last 2 to 3 days. She has a history of diabetes, breast cancer, congestive heart failure and a brain tumor.. Historical: - Allergies: 16:32 steroids; hb - PMHx: 16:32 BRAIN TUMOR; breast cancer (Craniotomy); Congestive heart failure; diabetes mellitus; hb End stage renal disease; Hypertensive disorder; - PSHx: 16:32 Craniotomy; hb - Immunization history:: Adult Immunizations up to date. - Infectious Disease History:: Denies. - Social history:: Smoking status: Patient denies any tobacco usage or history of. ROS: 20:20 Constitutional: As per HPI kb Exam: 17:37 Constitutional: This is a well developed, well nourished patient who is awake, alert, gb1 and in no acute distress. Head/Face: Normocephalic, atraumatic. Eyes: Pupils equal round and reactive to light, extra-ocular motions intact. Lids and lashes normal. Conjunctiva and sclera are non-icteric and not injected. Cornea within normal limits. Periorbital areas with no swelling, redness, or edema. ENT: Nares patent. No nasal discharge, no septal abnormalities noted. Tympanic membranes are normal and external auditory canals are clear. Oropharynx with no redness, swelling, or masses, exudates, or evidence of obstruction, uvula midline. Mucous membranes moist. Neck: Trachea midline, no thyromegaly or masses palpated, and no cervical lymphadenopathy. Supple, full range of motion without nuchal rigidity, or vertebral point tenderness. No Meningismus. Chest/axilla: Normal chest wall appearance and motion. Nontender with no deformity. No lesions are appreciated. Cardiovascular: Regular rate and rhythm with a normal S1 and S2. No gallops, murmurs, or rubs. Normal PMI, no JVD. No pulse deficits. Respiratory: Lungs have equal breath sounds bilaterally, clear to auscultation and percussion. No rales, rhonchi or wheezes noted. No increased work of breathing, no retractions or nasal flaring. Abdomen/GI: Soft, non-tender, with normal bowel sounds. No distension or tympany. No guarding or rebound. No evidence of tenderness throughout. MS/ Extremity: Pulses equal, no cyanosis. Neurovascular intact. Full, normal range of motion. Patient has a thrill to the left ventral forearm fistula but she does have some ecchymosis around the area of the fistula along the edge of the left forearm. Vital Signs: 16:28 BP 187 / 85; Pulse 66; Resp 16; Temp 98.5; Pulse Ox 100% on R/A; Weight 95.25 kg; hb Height 5 ft. 7 in. ; Pain 7/10; 19:50 BP 171 / 102; Pulse 67; Resp 20; Pulse Ox 99% ; kj2 20:42 BP 165 / 86; Pulse 68; Resp 20; kj2 16:28 Body Mass Index 32.89 (95.25 kg, 170.18 cm) hb 16:28 Pain Scale: Adult hb MDM: 16:57 Medical Screening Exam initiated gb1 17:37 Differential diagnosis: shunt malfunction, DVT, infected shunt. Data reviewed: vital gb1 signs, nurses notes. ED course: 69-year-old female with history of end-stage renal disease on hemodialysis Thursday here with concern for a left AV fistula malfunction versus DVT versus cellulitis versus shunt obstruction. Ultrasound of the shunt is pending. Disposition per ultrasound findings.. 18:45 ED course: 69-year-old female with a left AV fistula concern for obstruction versus gb1 DVT. Patient's care transition to [facility] at 1845 pending ultrasound reports. Disposition per results and include vascular if necessary.. 20:20 Counseling: I had a detailed discussion with the patient and/or guardian regarding the kb historical points, exam findings, and any diagnostic results supporting the discharge/admit diagnosis, radiology results, the need for outpatient follow up, a family practitioner, to return to the emergency department if symptoms worsen or persist or if there are any questions or concerns that arise at home. 08/29 18:14 Order name: Upper Ext Artery Uni Hiram; Complete Time: 20:03 EDMS 08/29 19:00 Order name: UPPER EXTREMITY VENOUS UNILATE; Complete Time: 19:39 EDMS Administered Medications: No medications were administered Disposition Summary: 08/29/24 20:19 Discharge Ordered Notes: Location: Home kb Condition: Stable kb Diagnosis - Ecchymosis of left arm kb Followup: kb - With: Emergency Department - When: As needed - Reason: Worsening of condition Followup: kb - With: Private Physician - When: 2 - 3 days - Reason: Recheck today's complaints, Continuance of care, Re-evaluation by your physician Forms: - Medication Reconciliation Form kb - Antibiotic Education kb - Prescription Opioid Use kb - Patient Portal Instructions kb - Leadership Thank You Letter kb Signatures: Dispatcher [employer] EDMS Heena Reid FNP-C FNP-Sonam Shannon, RN RN Bridget Parham MD MD gb1 Corrections: (The following items were deleted from the chart) 17:26 17:26 Lower Extremity Artery Uni Ltd+[email or web address] ordered. EDMS EDMS 18:24 18:24 Extremity Venous Uni Ltd+[email or web address] ordered. EDMS EDMS
--- NOTE | 2024-08-29 20:20 | ER ---
Nurse's Notes [facility] Name: Nathalia Cooley Age: 69 yrs Sex: Female : 1955 Arrival Date: 08/29/2024 Time: 15:41 Bed 13 Private MD: Diagnosis: Ecchymosis of left arm Presentation: 08/29 16:28 Chief complaint: Left forearm bruising and swelling after line during HD on Thursday so hb they stopped the treatment early, she noticed bruising and swelling started shortly after the treatment was stopped. Coronavirus screen: At this time, the client does not indicate any symptoms associated with coronavirus-19. Ebola Screen: No symptoms or risks identified at this time. Initial Sepsis Screen: Does the patient meet any 2 criteria? No. Patient's initial sepsis screen is negative. Does the patient have a suspected source of infection? No. Patient's initial sepsis screen is negative. Risk Assessment: Do you want to hurt yourself or someone else? Patient reports no desire to harm self or others. Onset of symptoms was August 28, 2024. 16:28 Method Of Arrival: Ambulatory 16:28 Acuity: PANCHITO 3 hb Historical: - Allergies: 16:32 steroids; hb - PMHx: 16:32 BRAIN TUMOR; breast cancer (Craniotomy); Congestive heart failure; diabetes mellitus; hb End stage renal disease; Hypertensive disorder; - PSHx: 16:32 Craniotomy; hb - Immunization history:: Adult Immunizations up to date. - Infectious Disease History:: Denies. - Social history:: Smoking status: Patient denies any tobacco usage or history of. Screenin:10 [facility] ED Fall Risk Assessment (Adult) History of falling in the last 3 months, kj2 including since admission No falls in past 3 months (0 pts) Confusion or Disorientation No (0 pts) Intoxicated or Sedated No (0 pts) Impaired Gait No (0 pts) Mobility Assist Device Used No (0 pt) Altered Elimination No (0 pt) Score/Fall Risk Level 0 - 2 = Low Risk. Abuse screen: Denies threats or abuse. Denies injuries from another. Nutritional screening: No deficits noted. Nutritional screening: No deficits noted. Tuberculosis screening: No symptoms or risk factors identified. Assessment: 19:00 General: Appears in no apparent distress. Behavior is calm, cooperative. Pain: kj2 Complains of pain in LEFT ARM Pain currently is 3 out of 10 on a pain scale. Neuro: Level of Consciousness is awake, alert, Oriented to person, place, time, situation. Cardiovascular: Patient's skin is warm and dry. Respiratory: Airway is patent Respiratory effort is even, unlabored. GI: No signs and/or symptoms were reported involving the gastrointestinal system. : Reports ON DIALYSIS. 19:56 Reassessment: Patient appears in no apparent distress at this time. Patient and/or kj2 family updated on plan of care and expected duration. Pain level reassessed. Patient is alert, oriented x 3, equal unlabored respirations, skin warm/dry/pink. 20:34 Reassessment: Patient appears in no apparent distress at this time. Patient and/or kj2 family updated on plan of care and expected duration. Pain level reassessed. Patient is alert, oriented x 3, equal unlabored respirations, skin warm/dry/pink. Vital Signs: 16:28 BP 187 / 85; Pulse 66; Resp 16; Temp 98.5; Pulse Ox 100% on R/A; Weight 95.25 kg; hb Height 5 ft. 7 in. ; Pain 7/10; 19:50 BP 171 / 102; Pulse 67; Resp 20; Pulse Ox 99% ; kj2 20:42 BP 165 / 86; Pulse 68; Resp 20; kj2 16:28 Body Mass Index 32.89 (95.25 kg, 170.18 cm) hb 16:28 Pain Scale: Adult hb ED Course: 15:43 Patient arrived in ED. mr 15:53 Bridget Abraham MD is Attending Physician. gb1 16:32 Triage completed. hb 16:32 Arm band placed on. hb 18:48 [facility]C [facility]. kb 18:59 Upper Ext Artery Uni Hiram In Process Unspecified. EDMS 19:00 UPPER EXTREMITY VENOUS UNILATE In Process Unspecified. EDMS 19:10 Patient has correct armband on for positive identification. Bed in low position. Call kj2 light in reach. Adult w/ patient. Provided Education on: call light. 19:34 Meaghan Tran, RN is Primary Nurse. kj2 20:36 No provider procedures requiring assistance completed. kj2 20:37 Patient did not have IV access during this emergency room visit. kj2 Administered Medications: No medications were administered Medication: 19:10 VIS not applicable for this client. kj2 Outcome: 20:19 Discharge ordered by . renato 20:36 Discharged to home ambulatory, with family, kj2 20:36 Condition: stable 20:36 Discharge instructions given to patient, family, Instructed on discharge instructions, follow up and referral plans. Demonstrated understanding of instructions, follow-up care, medications, 20:42 Patient left the ED. kj2 Signatures: Dispatcher [employer] EDMS Heena Reid, JASON-Rob SANITARY ENGINEER-Shania Hall, Reg Reg mr Sonam Dalals, RN RN Bridget Parham MD MD gb1 Meaghan Tran, RN RN kj2
[2024-08-30 02:27] VITALS: TEMP 98.5
[2024-08-30 02:28] VITALS: O2SAT 99
[2024-08-30 02:29] VITALS: BP 165/86
== END 2024-08-29 20:42 | disposition home or self-care (01) ==
LOC: ER 15:41
DX: R23.3 Spontaneous ecchymoses (principal); E11.22 Type 2 diabetes mellitus with diabetic chronic kidney disease; I13.2 Hypertensive heart and chronic kidney disease with heart failure and with stage 5 chronic kidney disease, or end stage renal disease; I50.9 Heart failure, unspecified; N18.6 End stage renal disease; Z99.2 Dependence on renal dialysis
CPT/HCPCS: 93931; 93971; 99283